=== PATIENT | female | born 1960 | race Caucasian/White ===

== ENCOUNTER → 2016-10-13 | Outpatient (CLI) | payer MEDICARE, MEDICAID | LOC: MW.CHIM 10:10 | PROVIDERS: ATTEND Internal Medicine | DX: E11.65 Type 2 diabetes mellitus with hyperglycemia (principal) | CPT/HCPCS: 36415; 83036 ==

== ENCOUNTER → 2016-10-14 | Outpatient (CLI) | payer MEDICARE, MEDICAID | LOC: MW.CHIM 08:00 | CPT/HCPCS: 96372; 99214; J0897 ==

== ENCOUNTER 2016-10-16 21:35 | Inpatient (IN) | payer MEDICARE, MEDICAID ==
[2016-10-16] MEDS ORDERED: Sodium Chloride 0.9% 2.5 ML Syringe FLUSH PRN ×2 (21:52→23:57)
[2016-10-16] MEDS ORDERED: Sodium Chloride 0.9% 10 ML Syringe FLUSH PRN ×2 (21:52→23:57)
--- NOTE | 2016-10-16 21:52 | EDM.PDOC ---
ED HPI Trauma - General Chief Complaint: Lower Extremity Injury/Pain Stated Complaint: FALL Time Seen by Provider: 10/16/16 21:47 - History of Present Illness INITIAL COMMENTS - FREE TEXT/NARRATIVE: HISTORY AND PHYSICAL: History of present illness: This 48 year-old female presents status post fall at home in which she injured her right hip she presents with paramedics denies head or neck pain, denies chest pain palpitations shortness of breath or other concerns Review of systems: As per history of present illness and below otherwise all systems reviewed and negative. Past medical history: As per history of present illness and as reviewed below otherwise noncontributory. Surgical history: As per history of present illness and as reviewed below otherwise noncontributory. Social history: No reported history of drug or alcohol abuse. Family history: As per history of present illness and as reviewed below otherwise noncontributory. Physical exam: HEENT: Atraumatic, normocephalic, pupils reactive, negative for conjunctival pallor or scleral icterus, mucous membranes moist, throat clear, neck supple, nontender, trachea midline. Lungs: Clear to auscultation, breath sounds equal bilaterally, chest nontender. Heart: S1S2, regular, negative for clicks, rubs, or JVD. Abdomen: Soft, nondistended, nontender. Negative for masses or hepatosplenomegaly. Negative for costovertebral tenderness. Pelvis: Stable nontender. Tenderness to palpation of her right hip neurovascular exam is unremarkable she has limited range of motion secondary to pain there is no significant shortening or obvious rotation of the patient is somewhat malpositioned Genitourinary: Deferred. Rectal: Deferred. Extremities: Atraumatic, negative for cords or calf pain. Neurovascular unremarkable. Neuro: Awake, alert, oriented. Cranial nerves II through XII unremarkable. Cerebellum unremarkable. Motor and sensory unremarkable throughout. Exam nonfocal. Diagnostics: X-ray right hip with total Therapeutics: Saline lock Impression: #1 observation status post fall #2 acute right hip injury #3 history of diabetes Definitive disposition and diagnosis as appropriate pending reevaluation and review of above. Allergies/ADRs: Allergies kaylah inhibitor Allergy (Uncoded 10/16/16 21:59) Airway Tightness Home Medications: Ambulatory Orders Ascorbic Acid [Vitamin C] 1 tab PO DAILY 02/18/15 [Confirmed 10/16/16] Hydrochlorothiazide 1 tab PO DAILY 02/18/15 [Confirmed 10/16/16] Levothyroxine [Synthroid] 1 tab PO DAILY 02/18/15 [Confirmed 10/16/16] Multivit-Min/FA/Lycopene/Lut [Complete Multi 50+] 1 tab PO DAILY 02/18/15 [ Confirmed 10/16/16] Nebivolol HCl [Bystolic] 1 tab PO BEDTIME 02/18/15 [Confirmed 10/16/16] amLODIPine Besylate [Amlodipine Besylate] 1 tab PO DAILY 02/18/15 [Confirmed 11/29] atorvaSTATin [Lipitor] 1 tab PO DAILY 02/18/15 [Confirmed 10/16/16] metFORMIN [Glucophage] 1 tab PO BID 02/18/15 [Confirmed 10/16/16] Albuterol Sulfate [Proair Hfa] 108 mcg IH QID PRN 10/16/16 [Confirmed 10/16/16] Aspirin [Lo-Dose Aspirin EC] 81 mg PO 10/16/16 Dulaglutide [Trulicity] 0.75 mg SQ 10/16/16 Fluticasone/Vilanterol [Breo Ellipta 100-25 MCG Inhalation Kit] 1 each IH ASDIRECTED 10/16/16 [Confirmed 10/16/16] Glimepiride [Amaryl] 1 mg PO WITHBREAKFAST 10/16/16 [Confirmed 10/16/16] Insulin Glarg,Human.Rec.Analog [LantUS Solostar] 22 units SUBCUT BEDTIME [Confirmed 10/16/16] Mirtazapine 30 mg PO BEDTIME 10/16/16 [Confirmed 10/16/16] Naproxen Sodium [Aleve] 220 mg PO BID PRN 10/16/16 [Confirmed 10/16/16] PARoxetine HCl [Paroxetine HCl] 40 mg PO DAILY 10/16/16 [Confirmed 10/16/16] Temazepam 15 mg PO BEDTIME 10/16/16 [Confirmed 10/16/16] cloNIDine 1 each TD WEEKLY 10/16/16 [Confirmed 10/16/16] Past Medical History Other Neuro History: "3 strokes" Social & Family History - Tobacco Use Smoking Status *Q: Unknown Ever Smoked Second Hand Smoke Exposure: No - Recreational Drug Use Recreational Drug Use: No Review of Systems - Review of Systems Review Of Systems: ROS reveals no pertinent complaints other than HPI. Trauma Exam - Physical Exam Exam: See Below (See dictated) Course - Vital Signs Last Recorded V/S: Last Vital Signs Temp 36.4 C 10/16/16 21:35 Pulse 84 10/16/16 21:35 Resp 22 H 10/16/16 21:35 BP 182/111 H 10/16/16 21:35 Pulse Ox 96 10/16/16 21:35 - Orders/Labs/Meds Orders: Active Orders 24 hr Category Date Time Status EKG Documentation Completion [RC] STAT Care 10/16/16 21:52 Active Hip Min 2V or 3V w Pelvis Rt [CR] Stat Exams 10/16/16 21:49 Taken Sodium Chloride 0.9% [Saline Flush] Med 10/16/16 21:52 Active 10 ml FLUSH ASDIRECTED PRN Sodium Chloride 0.9% [Saline Flush] Med 10/16/16 21:52 Active 2.5 ml FLUSH ASDIRECTED PRN Saline Lock Insert [OM.PC] Stat Oth 10/16/16 21:52 Ordered Medication Orders Sodium Chloride (Saline Flush) 10 ml FLUSH ASDIRECTED PRN PRN Reason: Keep Vein Open Sodium Chloride (Saline Flush) 2.5 ml FLUSH ASDIRECTED PRN PRN Reason: Keep Vein Open Meds: Medications Generic Name Dose Route Start Last Admin Trade Name Freq PRN Reason Stop Dose Admin Sodium Chloride 10 ml 10/16/16 21:52 Saline Flush FLUSH ASDIRECTED PRN Keep Vein Open Sodium Chloride 2.5 ml 10/16/16 21:52 Saline Flush FLUSH ASDIRECTED PRN Keep Vein Open Departure - Departure Time of Disposition: 22:45 Disposition: Home, Self-Care 01 Condition: good Clinical Impression: Fall, Hip injury Forms: ED Department Discharge Additional Instructions: The following information is given to patients seen in the emergency department who are being discharged to home. This information is to outline your options for follow-up care. We provide all patients seen in our emergency department with a follow-up referral. The need for follow-up, as well as the timing and circumstances, are variable depending upon the specifics of your emergency department visit. If you don't have a primary care physician on staff, we will provide you with a referral. We always advise you to contact your personal physician following an emergency department visit to inform them of the circumstance of the visit and for follow-up with them and/or the need for any referrals to a consulting specialist. The emergency department will also refer you to a specialist when appropriate. This referral assures that you have the opportunity for followup care with a specialist. All of these measure are taken in an effort to provide you with optimal care, which includes your followup. Under all circumstances we always encourage you to contact your private physician who remains a resource for coordinating your care. When calling for followup care, please make the office aware that this follow-up is from your recent emergency room visit. If for any reason you are refused follow-up, please contact the [facility] emergency department at and asked to speak to the emergency department charge nurse. Motrin/Tylenol as directed call primary medical doctor one to 2 days return as needed as discussed - My Orders Last 24 Hours: My Active Orders 10/16/16 21:49 Hip Min 2V or 3V w Pelvis Rt [CR] Stat 10/16/16 21:52 EKG Documentation Completion [RC] STAT Sodium Chloride 0.9% [Saline Flush] 10 ml FLUSH ASDIRECTED PRN Sodium Chloride 0.9% [Saline Flush] 2.5 ml FLUSH ASDIRECTED PRN Saline Lock Insert [OM.PC] Stat - Assessment/Plan Last 24 Hours: My Active Orders 10/16/16 21:49 Hip Min 2V or 3V w Pelvis Rt [CR] Stat 10/16/16 21:52 EKG Documentation Completion [RC] STAT Sodium Chloride 0.9% [Saline Flush] 10 ml FLUSH ASDIRECTED PRN Sodium Chloride 0.9% [Saline Flush] 2.5 ml FLUSH ASDIRECTED PRN Saline Lock Insert [OM.PC] Stat
[2016-10-17] MEDS ORDERED: Enoxaparin 40 MG/0.4 ML Syringe SUBCUT ONE (02:00)
[2016-10-17] MEDS: oxyCODONE 5 MG Tab PO PRN ×2 (06:53→14:08)
[2016-10-17] MEDS ORDERED: Potassium Chloride 20 MEQ Tab.ER PO ONE ×2 (08:35→17:24)
[2016-10-17] MEDS ORDERED: Sodium Chloride 0.45% 1,000 ML IV SCH ×2 (08:45→13:30)
[2016-10-17] MEDS ORDERED: cloNIDine 0.3 MG/Day Transdermal Patch TOP SCH (09:30)
[2016-10-17] MEDS: atorvaSTATin 40 MG Tab PO SCH (09:47)
[2016-10-17] MEDS: PARoxetine 20 MG Tab PO SCH (09:47)
[2016-10-17] MEDS: Hydrochlorothiazide 25 MG Tab PO SCH (09:48)
[2016-10-17] MEDS: amLODIPine 5 MG Tab PO SCH (09:48)
[2016-10-17] MEDS: Levothyroxine 50 MCG Tab PO SCH (09:49)
[2016-10-17] MEDS: Insulin Aspart 100 Units/ML 3 ML Pen SUBCUT SCH ×4 (09:55→21:11)
[2016-10-17] MEDS: BREO ELLIPTA INH SCH (10:07)
--- NOTE | 2016-10-17 14:04 | PCM.SN ---
- Free Text/Narrative Note: [id number]
[2016-10-17] MEDS: oxyCODONE ER 10 MG TAB.ER PO SCH ×2 (16:15→21:10)
--- NOTE | 2016-10-17 17:23 | PCM.SN ---
- Free Text/Narrative Note: Ankit palomino mai , recommended weight bearing PT . Silas Jauregui at [place] recommended patient showd have rest 2-3 weeks until less pain , during this time ROM exercise , afterwards she should have Weight bearing exercise. I have dw , ER attending at [facility].
[2016-10-17] MEDS ORDERED: hydrALAZINE 25 MG Tab PO ONE (17:26)
[2016-10-17] MEDS: Mirtazapine 15 MG Tab PO SCH (21:10)
[2016-10-17] MEDS: Temazepam 15 MG Cap PO SCH (21:10)
[2016-10-17] MEDS: Multivitamins with Iron/Calcium/Folic Acid/Minerals Tab PO SCH (21:10)
[2016-10-17] MEDS: Insulin Glargine,Human Rec. Analog 100 Units/ML 3 ML Pen SUBCUT SCH (21:12)
[2016-10-17] MEDS: BYSTOLIC 10 MG PO SCH (21:18)
[2016-10-17] MEDS: Enoxaparin 40 MG/0.4 ML Syringe SUBCUT SCH (21:22)
--- NOTE | 2016-10-17 22:46 | HP ---
DATE OF : 1960 PRIMARY CARE PHYSICIAN: None PCP CHIEF COMPLAINT: Leg pain, right, status post fall. HISTORY OF PRESENT ILLNESS: The patient is a 56-year-old female presented to the emergency room, status post fall, last night, while she was trying to walk with a walker. The patient had left-sided weakness secondary to 3 strokes she had due to uncontrolled blood pressure. Last stroke was about 5 years ago. They were ischemic strokes. The patient uses the walker for the past 2 months she says and the patient tripped over while she was walking with a walker and landed on her right side. She had severe pain. CT of the pelvis showed that the patient had nondisplaced fracture involving the medial right superior pubic ramus, best seen on the coronal images. X-ray of the right hip and pelvis show no evidence of acute trauma. X- ray extremity right femur was negative. PAST MEDICAL HISTORY: The patient has past medical history of hypertension, diabetes mellitus, hypothyroidism, history of 3 strokes, ischemic; and history of colitis and partial resection of the colon. PAST SURGICAL HISTORY: Hysterectomy, tonsillectomy, and partial colon resection. ALLERGIES: The patient is allergic to AVIS inhibitor, she gets angioedema, and to cigarette smoke as per patient SOCIAL HISTORY: She does not smoke and does not use drugs. No alcohol use. FAMILY HISTORY: Her father had ME and stroke, and he at the age of 64. Her mom was healthy and she lived in her 80s. REVIEW OF SYSTEMS: A 12-point review of systems is negative except as in history of present illness. VITAL SIGNS: At admission, the patient's temperature was 97.6, pulse rate 84, blood pressure 182/111, respiratory rate 22, and oxygen saturation 96%. PHYSICAL EXAMINATION Subsequent blood pressure was 118/64, this was measured after 2 hours. HEENT: Head is atraumatic and normocephalic. She has left-sided facial droop. The patient has some residual weakness in the left leg. The patient does not have any new neurologic deficits. NECK: Supple. No thyromegaly. No lymphadenopathy. HEART: S1 and S2. Regular rhythm and rate. No murmurs. LUNGS: Clear to auscultation bilateral. ABDOMEN: Midabdominal surgical scar. Abdomen is soft and nontender. Positive bowel sounds. EXTREMITIES: No edema. The patient has pain with flexion of the right foot and she has severe pain in the right lower extremity. Regarding left lower extremity, the patient can move it without pain. LABORATORY DATA: At admission, WBC 13.63, hemoglobin 9.9, hematocrit 31.8, and platelets 571. INR 0.98. Sodium 142, potassium 3.3, chloride 102, carbon dioxide 27, BUN 35, creatinine 1.6, glucose 212, and calcium 9.2. Total bilirubin 0.2, AST 17, ALT 17, alkaline phosphatase 109, albumin 3.4, and globulin 3.2. Urinalysis was negative. Chest x-ray was negative. Xray pelvis - neg X ray femour - neg Ct pelvic non displaced fracture of the rt superior pubic rami ASSESSMENT: The patient has nondisplaced fracture involving the medial right superior pubic ramus. We will start the patient on pain medication. We will give the patient oxycodone extended release 10 mg q.12 hours and oxycodone 5 mg p.o. q.6 hours p.r.n. for breakthrough pain. I have discussed with Dr. Good over the phone of the patient CT and he recommended weight bearing exercise. Also, CT was reviewed by Dr. Rosen in Orthopedics at [place] and he recommended the patient should have rest for 2 to 3 weeks, and then to start weight bearing exercise when she will have less pain. We will inform this to Physical Therapy. Also, I have discussed with ER physician in [facility], Dr. James, and he reviewed everything with Dr. Rosen, the orthopedic doctor. Leukocytosis, we will followup CBC. For hypertension, which is controlled now, we will continue the patient with amlodipine 10 mg p.o. daily, clonidine 0.3 mg topical patch, hydrochlorothiazide 25 mg p.o. daily, and Bystolic 10 mg 1 time p.o. at bedtime. For restless legs syndrome, we will give the patient Restoril 50 mg p.o. at bedtime. For depression, we will continue the patient with Remeron 30 mg p.o. at bedtime and paroxetine 40 mg p.o. daily. For diabetes mellitus, we will continue the patient with insulin 22 units subcutaneous at bedtime and insulin aspart on a sliding scale. We will hold metformin and we will hold glimepiride. For deep venous thrombosis prophylaxis, we will put the patient on heparin subcutaneous. For hypothyroidism, we will continue the patient with levothyroxine 50 mcg p.o. a.c. breakfast. SAVAGE / COURTNEY /[id number] MTDD
[2016-10-18] MEDS: Insulin Aspart 100 Units/ML 3 ML Pen SUBCUT SCH ×4 (06:44→21:20)
[2016-10-18] MEDS: Levothyroxine 50 MCG Tab PO SCH (06:51)
[2016-10-18] MEDS: oxyCODONE 5 MG Tab PO PRN (07:02)
[2016-10-18] MEDS: BREO ELLIPTA INH SCH (08:52)
--- NOTE | 2016-10-18 09:59 | PCM.PN ---
- General Info Date of Service: 10/18/16 Admission Dx/Problem (Free Text): Pelvic fracture, non-displaced. Subjective Update: Doing well this morning. Has some pain to R hip/pelvis. Has no other complaints of chest pain, palpitations or SOB. No headaches or blurred vision. Has filled out application to [facility] to rehab due to pelvic fracture. Functional Status: Reports: pain controlled, tolerating diet, ambulating, urinating - Review of Systems General: Reports: no symptoms. Denies: fever HEENT: Reports: no symptoms. Denies: headaches, visual changes Pulmonary: Reports: no symptoms. Denies: shortness of breath, cough, sputum Cardiovascular: Reports: no symptoms. Denies: chest pain, edema Gastrointestinal: Reports: No symptoms. Denies: Abdominal pain, Nausea, Vomiting Genitourinary: Reports: no symptoms. Denies: dysuria, frequency, burning Musculoskeletal: Reports: other (R hip/pelvic pain) Skin: Reports: no symptoms Neurological: Reports: no symptoms Psychiatric: Reports: no symptoms - Patient Data Vitals - most recent: Last Vital Signs Temp 98.4 F 10/18/16 08:00 Pulse 78 10/18/16 08:00 Resp 14 10/18/16 08:00 BP 152/71 H 10/18/16 08:00 Pulse Ox 82 L 10/18/16 08:00 Weight - most recent: 81.647 kg I&O - last 24 hours: Intake & Output 10/17/16 10/18/16 10/18/16 22:59 06:59 14:59 Intake Total 1608 500 Output Total 1250 800 Balance 358 -300 Lab Results last 24 hrs: Laboratory Results - last 24 hr 10/17/16 10/17/16 10/17/16 Range/Units 11:41 12:00 21:03 WBC (4.0-11.0) K/uL RBC (4.30-5.90) M/uL Hgb (12.0-16.0) g/dL Hct (36.0-46.0) % MCV (80.0-98.0) fL MCH (27.0-32.0) pg MCHC (31.0-37.0) g/dL RDW Std Deviation (28.0-62.0) fl RDW Coeff of Leia (11.0-15.0) % Plt Count (150-400) K/uL MPV (7.40-12.00) fL Neut % (Auto) (48.0-80.0) % Lymph % (Auto) (16.0-40.0) % Cecil % (Auto) (0.0-15.0) % Eos % (Auto) (0.0-7.0) % Baso % (Auto) (0.0-1.5) % Neut # (1.4-5.7) K/uL Lymph # (0.6-2.4) K/uL Cecil # (0.0-0.8) K/uL Eos # (0.0-0.7) K/uL Baso # (0.0-0.1) K/uL Nucleated RBC % /100WBC Nucleated RBCs # K/uL Sodium (136-146) mmol/L Potassium (3.5-5.1) mmol/L Chloride (98-110) mmol/L Carbon Dioxide (21-31) mmol/L BUN (6.0-23.0) mg/dL Creatinine (0.6-1.5) mg/dL Est Cr Clr Drug Dosing mL/min Estimated GFR (MDRD) ml/min Glucose (60-110) mg/dL POC Glucose 121 H 173 H (60-110) mg/dL Calcium (8.8-10.8) mg/dL Urine Color STRAW Urine Appearance CLEAR Urine pH 7.0 (5.0-8.0) Ur Specific [place] 1.010 (1.001-1.035) Urine Protein NEGATIVE (NEGATIVE) mg/dL Urine Glucose (UA) NEGATIVE (NEGATIVE) mg/dL Urine Ketones NEGATIVE (NEGATIVE) mg/dL Urine Occult Blood NEGATIVE (NEGATIVE) Urine Nitrite NEGATIVE (NEGATIVE) Urine Bilirubin NEGATIVE (NEGATIVE) Urine Urobilinogen 0.2 (<2.0) EU/dL Ur Leukocyte Esterase MODERATE (NEGATIVE) 10/18/16 10/18/16 10/18/16 Range/Units 05:30 05:30 06:34 WBC 15.33 H (4.0-11.0) K/uL RBC 3.96 L (4.30-5.90) M/uL Hgb 10.2 L (12.0-16.0) g/dL Hct 33.5 L (36.0-46.0) % MCV 84.6 (80.0-98.0) fL MCH 25.8 L (27.0-32.0) pg MCHC 30.4 L (31.0-37.0) g/dL RDW Std Deviation 60.9 (28.0-62.0) fl RDW Coeff of Leia 20 H (11.0-15.0) % Plt Count 608 H (150-400) K/uL MPV 11.00 (7.40-12.00) fL Neut % (Auto) 63.5 (48.0-80.0) % Lymph % (Auto) 21.3 (16.0-40.0) % Cecil % (Auto) 9.9 (0.0-15.0) % Eos % (Auto) 5.0 (0.0-7.0) % Baso % (Auto) 0.3 (0.0-1.5) % Neut # 9.7 H (1.4-5.7) K/uL Lymph # 3.3 H (0.6-2.4) K/uL Cecil # 1.5 H (0.0-0.8) K/uL Eos # 0.8 H (0.0-0.7) K/uL Baso # 0.1 (0.0-0.1) K/uL Nucleated RBC % 0.0 /100WBC Nucleated RBCs # 0 K/uL Sodium 143 (136-146) mmol/L Potassium 4.7 (3.5-5.1) mmol/L Chloride 106 (98-110) mmol/L Carbon Dioxide 28 (21-31) mmol/L BUN 25 H (6.0-23.0) mg/dL Creatinine 1.2 (0.6-1.5) mg/dL Est Cr Clr Drug Dosing 45.91 mL/min Estimated GFR (MDRD) 46.1 ml/min Glucose 129 H (60-110) mg/dL POC Glucose 133 H (60-110) mg/dL Calcium 8.3 L (8.8-10.8) mg/dL Urine Color Urine Appearance Urine pH (5.0-8.0) Ur Specific [place] (1.001-1.035) Urine Protein (NEGATIVE) mg/dL Urine Glucose (UA) (NEGATIVE) mg/dL Urine Ketones (NEGATIVE) mg/dL Urine Occult Blood (NEGATIVE) Urine Nitrite (NEGATIVE) Urine Bilirubin (NEGATIVE) Urine Urobilinogen (<2.0) EU/dL Ur Leukocyte Esterase (NEGATIVE) Med Orders - Current: Current Medications Amlodipine Besylate (Norvasc) 10 mg PO DAILY REPLACED BY [facility] Last Admin: 10/17/16 09:48 Dose: 10 mg Aspirin (Aspirin) 325 mg PO DAILY REPLACED BY [facility] Atorvastatin Calcium (Lipitor) 40 mg PO DAILY REPLACED BY [facility] Last Admin: 10/17/16 09:47 Dose: 40 mg Clonidine HCl (Catapres-Tts 3) 0.3 mg TOP SEECOMMENT REPLACED BY [facility] Enoxaparin Sodium (Lovenox) 40 mg SUBCUT Q24H REPLACED BY [facility] Last Admin: 10/17/16 21:22 Dose: 40 mg Hydrochlorothiazide (Hydrochlorothiazide) 25 mg PO DAILY REPLACED BY [facility] Last Admin: 10/17/16 09:48 Dose: 25 mg Insulin Aspart (Novolog) 0 unit SUBCUT ACBED REPLACED BY [facility] PRN Reason: Protocol Last Admin: 10/18/16 06:44 Dose: Not Given Insulin Glargine (Lantus Solostar) 22 units SUBCUT BEDTIME REPLACED BY [facility] Last Admin: 10/17/16 21:12 Dose: 22 units Levothyroxine Sodium (Synthroid) 50 mcg PO ACBREAKFAST REPLACED BY [facility] Last Admin: 10/18/16 06:51 Dose: 50 mcg Mirtazapine (Remeron) 30 mg PO BEDTIME REPLACED BY [facility] Last Admin: 10/17/16 21:10 Dose: 30 mg Multivitamins/Minerals (Thera M Plus) 1 tab PO BEDTIME REPLACED BY [facility] Last Admin: 10/17/16 21:10 Dose: 1 tab Oxycodone HCl (Oxycodone) 5 mg PO Q6H PRN PRN Reason: Pain Last Admin: 10/18/16 07:02 Dose: 5 mg Oxycodone HCl (Oxycontin) 10 mg PO Q12HR REPLACED BY [facility] Last Admin: 10/17/16 21:10 Dose: 10 mg Paroxetine HCl (Paxil) 40 mg PO DAILY REPLACED BY [facility] Last Admin: 10/17/16 09:47 Dose: 40 mg Breo Ellipta ( Fluticasone/Vilanterol 1 Each) 1 each INH DAILY REPLACED BY [facility] Last Admin: 10/18/16 08:52 Dose: 1 each Bystolic (Nebevilol) (10mg) 1 each PO BEDTIME REPLACED BY [facility] Last Admin: 10/17/16 21:18 Dose: Not Given Sodium Chloride (Saline Flush) 10 ml FLUSH ASDIRECTED PRN PRN Reason: Keep Vein Open Sodium Chloride (Saline Flush) 2.5 ml FLUSH ASDIRECTED PRN PRN Reason: Keep Vein Open Temazepam (Restoril) 15 mg PO BEDTIME REPLACED BY [facility] Last Admin: 10/17/16 21:10 Dose: 15 mg Discontinued Medications Enoxaparin Sodium (Lovenox) 40 mg SUBCUT ONETIME ONE Stop: 10/17/16 02:01 Last Admin: 10/17/16 02:08 Dose: 40 mg Hydralazine HCl (Apresoline) 25 mg PO ONETIME ONE Stop: 10/17/16 17:27 Last Admin: 10/17/16 17:35 Dose: 25 mg Sodium Chloride (Sodium Chloride 0.45%) 1,000 mls @ 125 mls/hr IV ASDIRECTED REPLACED BY [facility] Last Admin: 10/17/16 14:32 Dose: 125 mls/hr Sodium Chloride (Sodium Chloride 0.45%) 1,000 mls @ 125 mls/hr IV ASDIRECTED REPLACED BY [facility] Potassium Chloride (Klor-Con M20) 40 meq PO ONETIME ONE Stop: 10/17/16 08:36 Last Admin: 10/17/16 09:47 Dose: 40 meq Potassium Chloride (Klor-Con M20) 40 meq PO ONETIME ONE Stop: 10/17/16 17:25 Last Admin: 10/17/16 17:35 Dose: 40 meq Sodium Chloride (Saline Flush) 10 ml FLUSH ASDIRECTED PRN PRN Reason: Keep Vein Open Sodium Chloride (Saline Flush) 2.5 ml FLUSH ASDIRECTED PRN PRN Reason: Keep Vein Open - Exam Quality Assessment: No: supplemental oxygen General: alert, oriented, cooperative HEENT: Pupils equal, Pupils reactive, EOMI, Mucous membr. moist/pink Neck: supple, +2 carotid pulse wo bruit Lungs: Clear to auscultation, Normal respiratory effort Cardiovascular: regular rate, regular rhythm, no murmurs Abdomen: bowel sounds present, soft, no tenderness, no distension Extremities: no edema, normal pulses, no tenderness/swelling, other (tenderness to R hip/pelvic region. No brusing to skin noted.) Peripheral Pulses: 2+: posterior tibial (L), posterior tibial (R), dorsalis pedis (L), dorsalis pedis (R) Skin: warm, dry, intact Neurological: no new focal deficit Psy/Mental Status: alert, normal affect, normal mood - Problem List & Annotations (1) Pelvic fracture SNOMED Code(s): 24319088 Code(s): S32.9XXA - FRACTURE OF UNSP PARTS OF LUMBOSACRAL SPINE AND PELVIS, INIT Status: Acute Current Visit: Yes Qualifiers: Encounter type: initial encounter Pelvic bone location: other part of pelvis Fracture type: closed Qualified Code(s): S32.89XA - Fracture of other parts of pelvis, initial encounter for closed fracture (2) Fall SNOMED Code(s): 8951099, 695266261 Code(s): W19.XXXA - UNSPECIFIED FALL, INITIAL ENCOUNTER Status: Acute Current Visit: Yes Qualifiers: Encounter type: initial encounter Qualified Code(s): W19.XXXA - Unspecified fall, initial encounter (3) History of CVA (cerebrovascular accident) SNOMED Code(s): 896503595 Code(s): Z86.73 - PRSNL HX OF TIA (TIA), AND CEREB INFRC W/O RESID DEFICITS Status: Chronic Current Visit: Yes (4) DM type 2 (diabetes mellitus, type 2) SNOMED Code(s): 62488242 Code(s): E11.9 - TYPE 2 DIABETES MELLITUS WITHOUT COMPLICATIONS Status: Chronic Current Visit: Yes Qualifiers: Diabetes mellitus complication status: with neurologic complications Diabetes mellitus complication detail: with other neurological complication Diabetes mellitus jail insulin use: with intermission coordinator use Qualified Code(s) : E11.49 - Type 2 diabetes mellitus with other diabetic neurological complication; Z79.4 - half-way (current) use of insulin (5) HTN (hypertension) SNOMED Code(s): 29481154 Code(s): I10 - ESSENTIAL (PRIMARY) HYPERTENSION Status: Acute Current Visit: Yes Qualifiers: Hypertension type: essential hypertension Qualified Code(s): I10 - Essential (primary) hypertension (6) Hypothyroidism SNOMED Code(s): 32687751 Code(s): E03.9 - HYPOTHYROIDISM, UNSPECIFIED Status: Chronic Current Visit: Yes Qualifiers: Hypothyroidism type: unspecified Qualified Code(s): E03.9 - Hypothyroidism , unspecified - Problem List Review Problem List Initiated/Reviewed/Updated: Yes - My Orders Last 24 Hours: My Active Orders 10/18/16 09:46 Patient Status [ADT] Routine 10/18/16 10:00 Aspirin 325 mg PO DAILY - Plan Plan:: This 56 year old female admitted with non-displaced medial right superior pubic ramus fracture 1. Pelvic fracture: Consult PT. WB with FWW as tolerated and as pain is controlled. Oxycontin 10 mg BID and Oxycodone PRN for pain. Change to inpatient status. 2. Leukocytosis: Improving, 15,330 today. Ua had moderate leukocytosis. UA with micro added this morning, revealed WBC 8-10 and few bacteria. Patient asymptomatic. 3. HTN: Controlled, Continue home medications of Norvasc, Clonidine patch, HCTZ , Bystolic 4. CAD: Continue Lipitor and ASA 5. DM: Controlled, Continue holding oral medications. Novolog SSI TIDAC and Lantus 6. Hypothyroidism: COntnue Levothyroxine 7. COPD: Continue Breo 8. Depression: Continue Paxil. VTE: Lovenox Dispo: earliest discharge to SNF for rehabilitation with PT.
[2016-10-18] MEDS: Hydrochlorothiazide 25 MG Tab PO SCH (10:20)
[2016-10-18] MEDS: atorvaSTATin 40 MG Tab PO SCH (10:21)
[2016-10-18] MEDS: amLODIPine 5 MG Tab PO SCH (10:22)
[2016-10-18] MEDS: oxyCODONE ER 10 MG TAB.ER PO SCH ×2 (10:23→21:15)
[2016-10-18] MEDS: PARoxetine 20 MG Tab PO SCH (10:25)
[2016-10-18] MEDS: Aspirin 325 MG Tab PO SCH (10:27)
[2016-10-18] MEDS ORDERED: Albuterol/Ipratropium 3.0-0.5 MG/3 ML Neb Soln NEB PRN (13:43)
[2016-10-18] MEDS: Docusate Sodium 100 MG Cap PO SCH ×2 (16:24→21:15)
--- NOTE | 2016-10-18 18:13 | CR ---
EXAM DATE: 10/16/16 PATIENT'S AGE: 56 Patient: COCO REILLY Facility: [place], [place] Site . Site : 1960 Study: XRay Hip Right with pelvis [id number]/4/2017 10:29:57 PM Ordering Physician: Long Farrar Final Report: INDICATION: Trauma TECHNIQUE: AP pelvis and two views right hip COMPARISON: None FINDINGS: Bones: Alignment is normal. No fractures or bone lesions. Joint spaces: Unremarkable. Soft tissues: Unremarkable. IMPRESSION: No evidence of acute trauma Dictated by Bernard Echols MD @ 10/16/2016 10:57:09 PM Dictated by: Bernard Echols MD @ 10/16/2016 22:57:17 (Electronic Signature) Report Signed by Proxy and Original Signed Document filed in the Medical Record. MTDD
--- NOTE | 2016-10-18 18:17 | CR ---
EXAM DATE: 10/16/16 PATIENT'S AGE: 56 Patient: COCO REILLY Facility: [place], [place] Site . Site : 1960 Study: XRay Extremity Right Femur [id number]/4/2017 11:22:19 PM Ordering Physician: Long Farrar Final Report: INDICATION: Pain following fall TECHNIQUE: Two views right femur COMPARISON: None FINDINGS: Bones: Alignment is normal. No fractures or bone lesions. Joint spaces: Unremarkable. Soft tissues: Unremarkable. IMPRESSION: Negative. Dictated by Bernard Echols MD @ 10/16/2016 11:49:25 PM Dictated by: Bernard Echols MD @ 10/16/2016 23:49:30 (Electronic Signature) Report Signed by Proxy and Original Signed Document filed in the Medical Record. MTDD
--- NOTE | 2016-10-18 18:18 | CT ---
EXAM DATE: 10/16/16 PATIENT'S AGE: 56 Patient: COCO REILLY Facility: [place], [place] Site . Site : 1960 Study: CT Pelvis [id number]/4/2017 11:25:35 PM Ordering Physician: Lnog Farrar Final Report: INDICATION: Pain following fall TECHNIQUE: CT pelvis without contrast. COMPARISON: None FINDINGS: Bones: Nondisplaced fracture involving the medial right superior pubic ramus best seen on the coronal images. Joints: Unremarkable. Soft tissues: Unremarkable. IMPRESSION: Nondisplaced fracture involving the medial right superior pubic ramus best seen on the coronal images. Dictated by Bernard Echols MD @ Oct 16 2016 11:43PM (Electronic Signature) Report Signed by Proxy and Original Signed Document filed in the Medical Record. MTDMary
--- NOTE | 2016-10-18 18:25 | CR ---
EXAM DATE: 10/16/16 PATIENT'S AGE: 56 Patient: COCO REILLY Facility: [place], [place] Site . Site : 1960 Study: XRay Chest [id number]/5/2017 9:07:09 AM Ordering Physician: Donald Long Final Report: HISTORY: Leukocytosis. Technique: One view portable chest. Comparison: Chest x-ray 03/20/2015. Findings: Low lung volumes. No airspace consolidation. No pleural effusion or pneumothorax. Tortuous thoracic aorta. Cardiomediastinal silhouette is otherwise within normal limits. The lower thoracic spine compression deformity seen on comparison radiograph is not well-visualized. Impression: No acute findings. Dictated by Jose Mendez MD @ Oct 17 2016 9:33AM (Electronic Signature) Report Signed by Proxy and Original Signed Document filed in the Medical Record. MTDD
[2016-10-18] MEDS: Mirtazapine 15 MG Tab PO SCH (21:15)
[2016-10-18] MEDS: Multivitamins with Iron/Calcium/Folic Acid/Minerals Tab PO SCH (21:15)
[2016-10-18] MEDS: Enoxaparin 40 MG/0.4 ML Syringe SUBCUT SCH (21:15)
[2016-10-18] MEDS: Temazepam 15 MG Cap PO SCH (21:15)
[2016-10-18] MEDS: Insulin Glargine,Human Rec. Analog 100 Units/ML 3 ML Pen SUBCUT SCH (21:21)
[2016-10-18] MEDS: BYSTOLIC 10 MG PO SCH (21:25)
[2016-10-19] MEDS: Insulin Aspart 100 Units/ML 3 ML Pen SUBCUT SCH ×4 (06:35→20:56)
[2016-10-19] MEDS: Levothyroxine 50 MCG Tab PO SCH (06:36)
[2016-10-19] MEDS: amLODIPine 5 MG Tab PO SCH (08:33)
[2016-10-19] MEDS: Docusate Sodium 100 MG Cap PO SCH ×2 (08:33→20:44)
[2016-10-19] MEDS: oxyCODONE ER 10 MG TAB.ER PO SCH ×2 (08:34→20:44)
[2016-10-19] MEDS: PARoxetine 20 MG Tab PO SCH (08:34)
[2016-10-19] MEDS: Hydrochlorothiazide 25 MG Tab PO SCH (08:34)
[2016-10-19] MEDS: Aspirin 325 MG Tab PO SCH (08:34)
[2016-10-19] MEDS: atorvaSTATin 40 MG Tab PO SCH (08:34)
[2016-10-19] MEDS: BREO ELLIPTA INH SCH (08:49)
[2016-10-19] MEDS ORDERED: Bisacodyl 10 MG Supp RECTAL PRN (08:52)
--- NOTE | 2016-10-19 08:54 | PCM.PN ---
<Linda Sheth M - Last Filed: 10/19/16 09:08> - General Info Date of Service: 10/19/16 Admission Dx/Problem (Free Text): Pelvic fracture, non-displaced. Subjective Update: Doing ok this morning. Has some pain to R hip/pelvis also started having pain to R ankle. Attempted to stand but pain to hip and ankle were too much. Has no other complaints of chest pain, palpitations or SOB. No headaches or blurred vision. Functional Status: Reports: pain controlled, tolerating diet, urinating. Denies : ambulating - Review of Systems General: Reports: no symptoms. Denies: fever, weakness HEENT: Reports: no symptoms. Denies: sinus congestion, sore throat Pulmonary: Reports: no symptoms. Denies: shortness of breath, cough, sputum Cardiovascular: Denies: chest pain, palpitations, edema Gastrointestinal: Denies: Abdominal pain, Nausea, Vomiting Genitourinary: Reports: no symptoms. Denies: dysuria, frequency, burning Musculoskeletal: Reports: other (R pelvic pain and has new complaint of R ankle pain. ) Skin: Reports: no symptoms Neurological: Reports: no symptoms Psychiatric: Reports: no symptoms - Patient Data Vitals - most recent: Last Vital Signs Temp 98.3 F 10/19/16 08:00 Pulse 88 10/19/16 08:00 Resp 12 10/19/16 08:00 BP 142/81 H 10/19/16 08:33 Pulse Ox 92 L 10/19/16 08:00 Weight - most recent: 180 lb 0.013 oz I&O - last 24 hours: Intake & Output 10/18/16 10/19/16 10/19/16 22:59 06:59 14:59 Intake Total 930 750 Output Total 580 887 Balance 350 -137 Lab Results last 24 hrs: Laboratory Results - last 24 hr 10/17/16 10/18/16 10/18/16 Range/Units 12:00 05:30 11:25 WBC (4.0-11.0) K/uL RBC (4.30-5.90) M/uL Hgb (12.0-16.0) g/dL Hct (36.0-46.0) % MCV (80.0-98.0) fL MCH (27.0-32.0) pg MCHC (31.0-37.0) g/dL RDW Std Deviation (28.0-62.0) fl RDW Coeff of Leia (11.0-15.0) % Plt Count (150-400) K/uL MPV (7.40-12.00) fL Neut % (Auto) (48.0-80.0) % Lymph % (Auto) (16.0-40.0) % [place] % (Auto) (0.0-15.0) % Eos % (Auto) (0.0-7.0) % Baso % (Auto) (0.0-1.5) % Neut # (1.4-5.7) K/uL Lymph # (0.6-2.4) K/uL [place] # (0.0-0.8) K/uL Eos # (0.0-0.7) K/uL Baso # (0.0-0.1) K/uL Nucleated RBC % /100WBC Nucleated RBCs # K/uL Sodium (136-146) mmol/L Potassium (3.5-5.1) mmol/L Chloride (98-110) mmol/L Carbon Dioxide (21-31) mmol/L BUN (6.0-23.0) mg/dL Creatinine (0.6-1.5) mg/dL Est Cr Clr Drug Dosing mL/min Estimated GFR (MDRD) ml/min Glucose (60-110) mg/dL POC Glucose 159 H (60-110) mg/dL Calcium (8.8-10.8) mg/dL Vitamin B12 752 (200-1100) PG/ML Urine Color STRAW Urine Appearance CLEAR Urine pH 7.0 (5.0-8.0) Ur Specific [place] 1.010 (1.001-1.035) Urine Protein NEGATIVE (NEGATIVE) mg/dL Urine Glucose (UA) NEGATIVE (NEGATIVE) mg/dL Urine Ketones NEGATIVE (NEGATIVE) mg/dL Urine Occult Blood NEGATIVE (NEGATIVE) Urine Nitrite NEGATIVE (NEGATIVE) Urine Bilirubin NEGATIVE (NEGATIVE) Urine Urobilinogen 0.2 (<2.0) EU/dL Ur Leukocyte Esterase MODERATE (NEGATIVE) Urine RBC 1-2 (0-2/HPF) Urine WBC 8-10 (0-5/HPF) Ur Epithelial Cells FEW (NONE-FEW) Urine Bacteria FEW (NEGATIVE) 10/18/16 10/18/16 10/19/16 Range/Units 16:28 21:20 04:43 WBC (4.0-11.0) K/uL RBC (4.30-5.90) M/uL Hgb (12.0-16.0) g/dL Hct (36.0-46.0) % MCV (80.0-98.0) fL MCH (27.0-32.0) pg MCHC (31.0-37.0) g/dL RDW Std Deviation (28.0-62.0) fl RDW Coeff of Leia (11.0-15.0) % Plt Count (150-400) K/uL MPV (7.40-12.00) fL Neut % (Auto) (48.0-80.0) % Lymph % (Auto) (16.0-40.0) % [place] % (Auto) (0.0-15.0) % Eos % (Auto) (0.0-7.0) % Baso % (Auto) (0.0-1.5) % Neut # (1.4-5.7) K/uL Lymph # (0.6-2.4) K/uL [place] # (0.0-0.8) K/uL Eos # (0.0-0.7) K/uL Baso # (0.0-0.1) K/uL Nucleated RBC % /100WBC Nucleated RBCs # K/uL Sodium 140 (136-146) mmol/L Potassium 4.1 (3.5-5.1) mmol/L Chloride 102 (98-110) mmol/L Carbon Dioxide 27 (21-31) mmol/L BUN 23 (6.0-23.0) mg/dL Creatinine 1.2 (0.6-1.5) mg/dL Est Cr Clr Drug Dosing 45.91 mL/min Estimated GFR (MDRD) 46.1 ml/min Glucose 166 H (60-110) mg/dL POC Glucose 155 H 195 H (60-110) mg/dL Calcium 8.0 L (8.8-10.8) mg/dL Vitamin B12 (200-1100) PG/ML Urine Color Urine Appearance Urine pH (5.0-8.0) Ur Specific [place] (1.001-1.035) Urine Protein (NEGATIVE) mg/dL Urine Glucose (UA) (NEGATIVE) mg/dL Urine Ketones (NEGATIVE) mg/dL Urine Occult Blood (NEGATIVE) Urine Nitrite (NEGATIVE) Urine Bilirubin (NEGATIVE) Urine Urobilinogen (<2.0) EU/dL Ur Leukocyte Esterase (NEGATIVE) Urine RBC (0-2/HPF) Urine WBC (0-5/HPF) Ur Epithelial Cells (NONE-FEW) Urine Bacteria (NEGATIVE) 10/19/16 10/19/16 Range/Units 04:43 06:34 WBC 17.30 H (4.0-11.0) K/uL RBC 3.84 L (4.30-5.90) M/uL Hgb 9.8 L (12.0-16.0) g/dL Hct 32.0 L (36.0-46.0) % MCV 83.3 (80.0-98.0) fL MCH 25.5 L (27.0-32.0) pg MCHC 30.6 L (31.0-37.0) g/dL RDW Std Deviation 59.0 (28.0-62.0) fl RDW Coeff of Leia 19 H (11.0-15.0) % Plt Count 504 H (150-400) K/uL MPV 10.40 (7.40-12.00) fL Neut % (Auto) 69.2 (48.0-80.0) % Lymph % (Auto) 18.7 (16.0-40.0) % [place] % (Auto) 9.0 (0.0-15.0) % Eos % (Auto) 2.8 (0.0-7.0) % Baso % (Auto) 0.3 (0.0-1.5) % Neut # 12.0 H (1.4-5.7) K/uL Lymph # 3.2 H (0.6-2.4) K/uL [place] # 1.6 H (0.0-0.8) K/uL Eos # 0.5 (0.0-0.7) K/uL Baso # 0.1 (0.0-0.1) K/uL Nucleated RBC % 0.2 /100WBC Nucleated RBCs # 0 K/uL Sodium (136-146) mmol/L Potassium (3.5-5.1) mmol/L Chloride (98-110) mmol/L Carbon Dioxide (21-31) mmol/L BUN (6.0-23.0) mg/dL Creatinine (0.6-1.5) mg/dL Est Cr Clr Drug Dosing mL/min Estimated GFR (MDRD) ml/min Glucose (60-110) mg/dL POC Glucose 161 H (60-110) mg/dL Calcium (8.8-10.8) mg/dL Vitamin B12 (200-1100) PG/ML Urine Color Urine Appearance Urine pH (5.0-8.0) Ur Specific [place] (1.001-1.035) Urine Protein (NEGATIVE) mg/dL Urine Glucose (UA) (NEGATIVE) mg/dL Urine Ketones (NEGATIVE) mg/dL Urine Occult Blood (NEGATIVE) Urine Nitrite (NEGATIVE) Urine Bilirubin (NEGATIVE) Urine Urobilinogen (<2.0) EU/dL Ur Leukocyte Esterase (NEGATIVE) Urine RBC (0-2/HPF) Urine WBC (0-5/HPF) Ur Epithelial Cells (NONE-FEW) Urine Bacteria (NEGATIVE) Med Orders - Current: Current Medications Albuterol/Ipratropium (Duoneb 3.0-0.5 Mg/3 Ml) 3 ml NEB Q4HRRT PRN PRN Reason: SOB/Wheezing Amlodipine Besylate (Norvasc) 10 mg PO DAILY [facility] Last Admin: 10/19/16 08:33 Dose: 10 mg Aspirin (Aspirin) 325 mg PO DAILY [facility] Last Admin: 10/19/16 08:34 Dose: 325 mg Atorvastatin Calcium (Lipitor) 40 mg PO DAILY [facility] Last Admin: 10/19/16 08:34 Dose: 40 mg Bisacodyl (Dulcolax) 10 mg RECTAL DAILY PRN PRN Reason: Constipation Clonidine HCl (Catapres-Tts 3) 0.3 mg TOP SEECOMMENT [facility] Docusate Sodium (Colace) 100 mg PO BID [facility] Last Admin: 10/19/16 08:33 Dose: 100 mg Enoxaparin Sodium (Lovenox) 40 mg SUBCUT Q24H [facility] Last Admin: 10/18/16 21:15 Dose: 40 mg Hydrochlorothiazide (Hydrochlorothiazide) 25 mg PO DAILY [facility] Last Admin: 10/19/16 08:34 Dose: 25 mg Insulin Aspart (Novolog) 0 unit SUBCUT ACBED [facility] PRN Reason: Protocol Last Admin: 10/19/16 06:35 Dose: 2 units Insulin Glargine (Lantus Solostar) 22 units SUBCUT BEDTIME [facility] Last Admin: 10/18/16 21:21 Dose: 22 units Levothyroxine Sodium (Synthroid) 50 mcg PO ACBREAKFAST [facility] Last Admin: 10/19/16 06:36 Dose: 50 mcg Mirtazapine (Remeron) 30 mg PO BEDTIME [facility] Last Admin: 10/18/16 21:15 Dose: 30 mg Multivitamins/Minerals (Thera M Plus) 1 tab PO BEDTIME [facility] Last Admin: 10/18/16 21:15 Dose: 1 tab Non-Formulary Medication (Dulaglutide [Trulicity]) 0.75 mg SQ WEEKLY [facility] Oxycodone HCl (Oxycodone) 5 mg PO Q6H PRN PRN Reason: Pain Last Admin: 10/18/16 07:02 Dose: 5 mg Oxycodone HCl (Oxycontin) 10 mg PO Q12HR [facility] Last Admin: 10/19/16 08:34 Dose: 10 mg Paroxetine HCl (Paxil) 40 mg PO DAILY [facility] Last Admin: 10/19/16 08:34 Dose: 40 mg Breo Ellipta ( Fluticasone/Vilanterol 1 Each) 1 each INH DAILY [facility] Last Admin: 10/19/16 08:49 Dose: 1 each Bystolic (Nebevilol) (10mg) 1 each PO BEDTIME [facility] Last Admin: 10/18/16 21:25 Dose: Not Given Sodium Chloride (Saline Flush) 10 ml FLUSH ASDIRECTED PRN PRN Reason: Keep Vein Open Sodium Chloride (Saline Flush) 2.5 ml FLUSH ASDIRECTED PRN PRN Reason: Keep Vein Open Temazepam (Restoril) 15 mg PO BEDTIME [facility] Last Admin: 10/18/16 21:15 Dose: 15 mg Discontinued Medications Enoxaparin Sodium (Lovenox) 40 mg SUBCUT ONETIME ONE Stop: 10/17/16 02:01 Last Admin: 10/17/16 02:08 Dose: 40 mg Hydralazine HCl (Apresoline) 25 mg PO ONETIME ONE Stop: 10/17/16 17:27 Last Admin: 10/17/16 17:35 Dose: 25 mg Sodium Chloride (Sodium Chloride 0.45%) 1,000 mls @ 125 mls/hr IV ASDIRECTED [facility] Last Admin: 10/17/16 14:32 Dose: 125 mls/hr Sodium Chloride (Sodium Chloride 0.45%) 1,000 mls @ 125 mls/hr IV ASDIRECTED [facility] Potassium Chloride (Klor-Con M20) 40 meq PO ONETIME ONE Stop: 10/17/16 08:36 Last Admin: 10/17/16 09:47 Dose: 40 meq Potassium Chloride (Klor-Con M20) 40 meq PO ONETIME ONE Stop: 10/17/16 17:25 Last Admin: 10/17/16 17:35 Dose: 40 meq Sodium Chloride (Saline Flush) 10 ml FLUSH ASDIRECTED PRN PRN Reason: Keep Vein Open Sodium Chloride (Saline Flush) 2.5 ml FLUSH ASDIRECTED PRN PRN Reason: Keep Vein Open - Exam Quality Assessment: supplemental oxygen General: alert, oriented, cooperative HEENT: Pupils equal, Pupils reactive, EOMI, Mucous membr. moist/pink Neck: supple, no JVD. No: lymphadenopathy Lungs: Clear to auscultation, Normal respiratory effort. No: Rhonchi, Wheezing Cardiovascular: regular rate, regular rhythm, no murmurs Abdomen: bowel sounds present, soft, no tenderness, no distension Extremities: no edema, normal pulses, other (tenderness along lateral R malleolus. Unable to dorsiflex or plantar flex with out inducing pain. ) Neurological: no new focal deficit Psy/Mental Status: alert, normal affect, normal mood - Problem List & Annotations (1) Pelvic fracture SNOMED Code(s): 47734459 Code(s): S32.9XXA - FRACTURE OF UNSP PARTS OF LUMBOSACRAL SPINE AND PELVIS, INIT Status: Acute Current Visit: Yes Qualifiers: Encounter type: initial encounter Pelvic bone location: other part of pelvis Fracture type: closed Qualified Code(s): S32.89XA - Fracture of other parts of pelvis, initial encounter for closed fracture (2) Fall SNOMED Code(s): 5907043, 986280859 Code(s): W19.XXXA - UNSPECIFIED FALL, INITIAL ENCOUNTER Status: Acute Current Visit: Yes Qualifiers: Encounter type: initial encounter Qualified Code(s): W19.XXXA - Unspecified fall, initial encounter (3) History of CVA (cerebrovascular accident) SNOMED Code(s): 382244073 Code(s): Z86.73 - PRSNL HX OF TIA (TIA), AND CEREB INFRC W/O RESID DEFICITS Status: Chronic Current Visit: Yes (4) DM type 2 (diabetes mellitus, type 2) SNOMED Code(s): 78801170 Code(s): E11.9 - TYPE 2 DIABETES MELLITUS WITHOUT COMPLICATIONS Status: Chronic Current Visit: Yes Qualifiers: Diabetes mellitus complication status: with neurologic complications Diabetes mellitus complication detail: with other neurological complication Diabetes mellitus longterm insulin use: with longterm use Qualified Code(s) : E11.49 - Type 2 diabetes mellitus with other diabetic neurological complication; Z79.4 - [employer] (current) use of insulin (5) HTN (hypertension) SNOMED Code(s): 37868497 Code(s): I10 - ESSENTIAL (PRIMARY) HYPERTENSION Status: Acute Current Visit: Yes Qualifiers: Hypertension type: essential hypertension Qualified Code(s): I10 - Essential (primary) hypertension (6) Hypothyroidism SNOMED Code(s): 43868225 Code(s): E03.9 - HYPOTHYROIDISM, UNSPECIFIED Status: Chronic Current Visit: Yes Qualifiers: Hypothyroidism type: unspecified Qualified Code(s): E03.9 - Hypothyroidism , unspecified - Problem List Review Problem List Initiated/Reviewed/Updated: Yes - My Orders Last 24 Hours: My Active Orders 10/18/16 09:46 Patient Status [ADT] Routine 10/18/16 10:00 Aspirin 325 mg PO DAILY 10/18/16 11:10 Resuscitation Status Routine 10/18/16 13:43 Albuterol/Ipratropium [DuoNeb 3.0-0.5 MG/3 ML] 3 ml NEB Q4HRRT PRN 10/18/16 13:44 RT Aerosol Therapy [RC] ASDIRECTED 10/18/16 15:15 Docusate Sodium [Colace] 100 mg PO BID 10/19/16 07:50 RT Incentive Spirometry [RC] ASDIRECTED 10/19/16 08:50 Ankle Min 3V Rt [CR] Routine 10/19/16 08:52 Bisacodyl [Dulcolax] 10 mg RECTAL DAILY PRN - Plan Plan:: This 56 year old female admitted with non-displaced medial right superior pubic ramus fracture 1. Pelvic fracture: Consult PT. WB with FWW as tolerated and as pain is controlled. Oxycontin 10 mg BID and Oxycodone PRN for pain. 2. Leukocytosis: 17,330 today. looking back at baseline it appears WBC between 11,000-15,000. Will obtain CRP, ESR, lactic acid, and peripheral smear. Will obtain CXR due to need for oxygen. 3. HTN: Controlled, Continue home medications of Norvasc, Clonidine patch, HCTZ , Bystolic 4. CAD: Continue Lipitor and ASA 5. DM: Controlled, Continue holding oral medications. Novolog SSI TIDAC and Lantus 6. Hypothyroidism: Continue Levothyroxine 7. Asthma: Continue Breo. Intermittently desaturations. Reports breathing is unchaged from baseline. Noted desaturations overnight during sleep. 1-2 L NC now. Obtain CXR 8. Depression: Continue Paxil. 9. R ankle pain: obtain Xray today. VTE: Lovenox Dispo: earliest discharge to SNF for rehabilitation with PT. <Ethan Bennett - Last Filed: 10/19/16 16:13> - Patient Data Vitals - most recent: Last Vital Signs Temp 99.0 F 10/19/16 12:00 Pulse 97 10/19/16 12:00 Resp 16 10/19/16 12:00 BP 147/70 H 10/19/16 12:00 Pulse Ox 92 L 10/19/16 08:00 I&O - last 24 hours: Intake & Output 10/19/16 10/19/16 10/19/16 06:59 14:59 22:59 Intake Total 750 50 900 Output Total 887 800 Balance -137 50 100 Lab Results last 24 hrs: Laboratory Results - last 24 hr 10/17/16 10/18/16 10/18/16 Range/Units 01:35 05:30 16:28 WBC (4.0-11.0) K/uL RBC (4.30-5.90) M/uL Hgb (12.0-16.0) g/dL Hct (36.0-46.0) % MCV (80.0-98.0) fL MCH (27.0-32.0) pg MCHC (31.0-37.0) g/dL RDW Std Deviation (28.0-62.0) fl RDW Coeff of Leia (11.0-15.0) % Plt Count (150-400) K/uL MPV (7.40-12.00) fL Neut % (Auto) (48.0-80.0) % Lymph % (Auto) (16.0-40.0) % [place] % (Auto) (0.0-15.0) % Eos % (Auto) (0.0-7.0) % Baso % (Auto) (0.0-1.5) % Neut # (1.4-5.7) K/uL Lymph # (0.6-2.4) K/uL [place] # (0.0-0.8) K/uL Eos # (0.0-0.7) K/uL Baso # (0.0-0.1) K/uL Nucleated RBC % /100WBC Nucleated RBCs # K/uL Smear Path Review ESR (0-29) mm/hr Lactate (0.20-2.00) mmol/L Sodium (136-146) mmol/L Potassium (3.5-5.1) mmol/L Chloride (98-110) mmol/L Carbon Dioxide (21-31) mmol/L BUN (6.0-23.0) mg/dL Creatinine (0.6-1.5) mg/dL Est Cr Clr Drug Dosing mL/min Estimated GFR (MDRD) ml/min Glucose (60-110) mg/dL POC Glucose 155 H (60-110) mg/dL Calcium (8.8-10.8) mg/dL Ferritin 7 L (11-307) ng/mL C-Reactive Protein (0.0-0.5) mg/dL Vitamin B12 752 (200-1100) PG/ML 10/18/16 10/19/16 10/19/16 Range/Units 21:20 04:43 04:43 WBC 17.30 H (4.0-11.0) K/uL RBC 3.84 L (4.30-5.90) M/uL Hgb 9.8 L (12.0-16.0) g/dL Hct 32.0 L (36.0-46.0) % MCV 83.3 (80.0-98.0) fL MCH 25.5 L (27.0-32.0) pg MCHC 30.6 L (31.0-37.0) g/dL RDW Std Deviation 59.0 (28.0-62.0) fl RDW Coeff of Leia 19 H (11.0-15.0) % Plt Count 504 H (150-400) K/uL MPV 10.40 (7.40-12.00) fL Neut % (Auto) 69.2 (48.0-80.0) % Lymph % (Auto) 18.7 (16.0-40.0) % [place] % (Auto) 9.0 (0.0-15.0) % Eos % (Auto) 2.8 (0.0-7.0) % Baso % (Auto) 0.3 (0.0-1.5) % Neut # 12.0 H (1.4-5.7) K/uL Lymph # 3.2 H (0.6-2.4) K/uL [place] # 1.6 H (0.0-0.8) K/uL Eos # 0.5 (0.0-0.7) K/uL Baso # 0.1 (0.0-0.1) K/uL Nucleated RBC % 0.2 /100WBC Nucleated RBCs # 0 K/uL Smear Path Review ESR (0-29) mm/hr Lactate (0.20-2.00) mmol/L Sodium 140 (136-146) mmol/L Potassium 4.1 (3.5-5.1) mmol/L Chloride 102 (98-110) mmol/L Carbon Dioxide 27 (21-31) mmol/L BUN 23 (6.0-23.0) mg/dL Creatinine 1.2 (0.6-1.5) mg/dL Est Cr Clr Drug Dosing 45.91 mL/min Estimated GFR (MDRD) 46.1 ml/min Glucose 166 H (60-110) mg/dL POC Glucose 195 H (60-110) mg/dL Calcium 8.0 L (8.8-10.8) mg/dL Ferritin (11-307) ng/mL C-Reactive Protein (0.0-0.5) mg/dL Vitamin B12 (200-1100) PG/ML 03/07/17 03/07/17 03/07/17 Range/Units 04:43 04:43 04:43 WBC (4.0-11.0) K/uL RBC (4.30-5.90) M/uL Hgb (12.0-16.0) g/dL Hct (36.0-46.0) % MCV (80.0-98.0) fL MCH (27.0-32.0) pg MCHC (31.0-37.0) g/dL RDW Std Deviation (28.0-62.0) fl RDW Coeff of Leia (11.0-15.0) % Plt Count (150-400) K/uL MPV (7.40-12.00) fL Neut % (Auto) (48.0-80.0) % Lymph % (Auto) (16.0-40.0) % [place] % (Auto) (0.0-15.0) % Eos % (Auto) (0.0-7.0) % Baso % (Auto) (0.0-1.5) % Neut # (1.4-5.7) K/uL Lymph # (0.6-2.4) K/uL [place] # (0.0-0.8) K/uL Eos # (0.0-0.7) K/uL Baso # (0.0-0.1) K/uL Nucleated RBC % /100WBC Nucleated RBCs # K/uL Smear Path Review SENT TO PATHOLOGY ESR 78 H (0-29) mm/hr Lactate (0.20-2.00) mmol/L Sodium (136-146) mmol/L Potassium (3.5-5.1) mmol/L Chloride (98-110) mmol/L Carbon Dioxide (21-31) mmol/L BUN (6.0-23.0) mg/dL Creatinine (0.6-1.5) mg/dL Est Cr Clr Drug Dosing mL/min Estimated GFR (MDRD) ml/min Glucose (60-110) mg/dL POC Glucose (60-110) mg/dL Calcium (8.8-10.8) mg/dL Ferritin (11-307) ng/mL C-Reactive Protein 9.31 H (0.0-0.5) mg/dL Vitamin B12 (200-1100) PG/ML 10/19/16 10/19/16 10/19/16 Range/Units 06:34 11:28 12:52 WBC (4.0-11.0) K/uL RBC (4.30-5.90) M/uL Hgb (12.0-16.0) g/dL Hct (36.0-46.0) % MCV (80.0-98.0) fL MCH (27.0-32.0) pg MCHC (31.0-37.0) g/dL RDW Std Deviation (28.0-62.0) fl RDW Coeff of Leia (11.0-15.0) % Plt Count (150-400) K/uL MPV (7.40-12.00) fL Neut % (Auto) (48.0-80.0) % Lymph % (Auto) (16.0-40.0) % [place] % (Auto) (0.0-15.0) % Eos % (Auto) (0.0-7.0) % Baso % (Auto) (0.0-1.5) % Neut # (1.4-5.7) K/uL Lymph # (0.6-2.4) K/uL [place] # (0.0-0.8) K/uL Eos # (0.0-0.7) K/uL Baso # (0.0-0.1) K/uL Nucleated RBC % /100WBC Nucleated RBCs # K/uL Smear Path Review ESR (0-29) mm/hr Lactate 1.7 (0.20-2.00) mmol/L Sodium (136-146) mmol/L Potassium (3.5-5.1) mmol/L Chloride (98-110) mmol/L Carbon Dioxide (21-31) mmol/L BUN (6.0-23.0) mg/dL Creatinine (0.6-1.5) mg/dL Est Cr Clr Drug Dosing mL/min Estimated GFR (MDRD) ml/min Glucose (60-110) mg/dL POC Glucose 161 H 222 H (60-110) mg/dL Calcium (8.8-10.8) mg/dL Ferritin (11-307) ng/mL C-Reactive Protein (0.0-0.5) mg/dL Vitamin B12 (200-1100) PG/ML 10/19/16 Range/Units 16:02 WBC (4.0-11.0) K/uL RBC (4.30-5.90) M/uL Hgb (12.0-16.0) g/dL Hct (36.0-46.0) % MCV (80.0-98.0) fL MCH (27.0-32.0) pg MCHC (31.0-37.0) g/dL RDW Std Deviation (28.0-62.0) fl RDW Coeff of Leia (11.0-15.0) % Plt Count (150-400) K/uL MPV (7.40-12.00) fL Neut % (Auto) (48.0-80.0) % Lymph % (Auto) (16.0-40.0) % [place] % (Auto) (0.0-15.0) % Eos % (Auto) (0.0-7.0) % Baso % (Auto) (0.0-1.5) % Neut # (1.4-5.7) K/uL Lymph # (0.6-2.4) K/uL [place] # (0.0-0.8) K/uL Eos # (0.0-0.7) K/uL Baso # (0.0-0.1) K/uL Nucleated RBC % /100WBC Nucleated RBCs # K/uL Smear Path Review ESR (0-29) mm/hr Lactate (0.20-2.00) mmol/L Sodium (136-146) mmol/L Potassium (3.5-5.1) mmol/L Chloride (98-110) mmol/L Carbon Dioxide (21-31) mmol/L BUN (6.0-23.0) mg/dL Creatinine (0.6-1.5) mg/dL Est Cr Clr Drug Dosing mL/min Estimated GFR (MDRD) ml/min Glucose (60-110) mg/dL POC Glucose 205 H (60-110) mg/dL Calcium (8.8-10.8) mg/dL Ferritin (11-307) ng/mL C-Reactive Protein (0.0-0.5) mg/dL Vitamin B12 (200-1100) PG/ML Med Orders - Current: Current Medications Albuterol/Ipratropium (Duoneb 3.0-0.5 Mg/3 Ml) 3 ml NEB Q4HRRT PRN PRN Reason: SOB/Wheezing Amlodipine Besylate (Norvasc) 10 mg PO DAILY [facility] Last Admin: 10/19/16 08:33 Dose: 10 mg Aspirin (Aspirin) 325 mg PO DAILY [facility] Last Admin: 10/19/16 08:34 Dose: 325 mg Atorvastatin Calcium (Lipitor) 40 mg PO DAILY [facility] Last Admin: 10/19/16 08:34 Dose: 40 mg Bisacodyl (Dulcolax) 10 mg RECTAL DAILY PRN PRN Reason: Constipation Clonidine HCl (Catapres-Tts 3) 0.3 mg TOP SEECOMMENT [facility] Docusate Sodium (Colace) 100 mg PO BID [facility] Last Admin: 10/19/16 08:33 Dose: 100 mg Enoxaparin Sodium (Lovenox) 40 mg SUBCUT Q24H [facility] Last Admin: 10/18/16 21:15 Dose: 40 mg Hydrochlorothiazide (Hydrochlorothiazide) 25 mg PO DAILY [facility] Last Admin: 10/19/16 08:34 Dose: 25 mg Ceftriaxone Sodium/Dextrose 1 (gm/ Premix) 50 mls @ 100 mls/hr IV Q24H [facility] Last Admin: 10/19/16 11:23 Dose: 100 mls/hr Sodium Chloride (Normal Saline) 1,000 mls @ 125 mls/hr IV ASDIRECTED [facility] Stop: 10/19/16 20:44 Last Admin: 10/19/16 15:00 Dose: 125 mls/hr Insulin Aspart (Novolog) 0 unit SUBCUT ACBED [facility] PRN Reason: Protocol Last Admin: 10/19/16 11:41 Dose: 4 units Insulin Glargine (Lantus Solostar) 22 units SUBCUT BEDTIME [facility] Last Admin: 10/18/16 21:21 Dose: 22 units Levothyroxine Sodium (Synthroid) 50 mcg PO ACBREAKFAST [facility] Last Admin: 10/19/16 06:36 Dose: 50 mcg Mirtazapine (Remeron) 30 mg PO BEDTIME [facility] Last Admin: 10/18/16 21:15 Dose: 30 mg Multivitamins/Minerals (Thera M Plus) 1 tab PO BEDTIME [facility] Last Admin: 10/18/16 21:15 Dose: 1 tab Oxycodone HCl (Oxycodone) 5 mg PO Q6H PRN PRN Reason: Pain Last Admin: 10/19/16 11:45 Dose: 5 mg Oxycodone HCl (Oxycontin) 10 mg PO Q12HR [facility] Last Admin: 10/19/16 08:34 Dose: 10 mg Paroxetine HCl (Paxil) 40 mg PO DAILY [facility] Last Admin: 10/19/16 08:34 Dose: 40 mg Breo Ellipta ( Fluticasone/Vilanterol 1 Each) 1 each INH DAILY [facility] Last Admin: 10/19/16 08:49 Dose: 1 each Bystolic (Nebevilol) (10mg) 1 each PO BEDTIME [facility] Last Admin: 10/18/16 21:25 Dose: Not Given Trulicity 0.75 Mg 1 each SUBCUT Tu@2100 [facility] Sodium Chloride (Saline Flush) 10 ml FLUSH ASDIRECTED PRN PRN Reason: Keep Vein Open Sodium Chloride (Saline Flush) 2.5 ml FLUSH ASDIRECTED PRN PRN Reason: Keep Vein Open Temazepam (Restoril) 15 mg PO BEDTIME [facility] Last Admin: 10/18/16 21:15 Dose: 15 mg Discontinued Medications Enoxaparin Sodium (Lovenox) 40 mg SUBCUT ONETIME ONE Stop: 10/17/16 02:01 Last Admin: 10/17/16 02:08 Dose: 40 mg Hydralazine HCl (Apresoline) 25 mg PO ONETIME ONE Stop: 10/17/16 17:27 Last Admin: 10/17/16 17:35 Dose: 25 mg Sodium Chloride (Sodium Chloride 0.45%) 1,000 mls @ 125 mls/hr IV ASDIRECTED [facility] Last Admin: 10/17/16 14:32 Dose: 125 mls/hr Sodium Chloride (Sodium Chloride 0.45%) 1,000 mls @ 125 mls/hr IV ASDIRECTED [facility] Iopamidol (Isovue-300 (61%)) 60 ml IVPUSH ONETIME STA Stop: 10/19/16 15:28 Trulicity 0.75 Mg 1 each SUBCUT Tu@0900 [facility] Potassium Chloride (Klor-Con M20) 40 meq PO ONETIME ONE Stop: 10/17/16 08:36 Last Admin: 10/17/16 09:47 Dose: 40 meq Potassium Chloride (Klor-Con M20) 40 meq PO ONETIME ONE Stop: 10/17/16 17:25 Last Admin: 10/17/16 17:35 Dose: 40 meq Sodium Chloride (Saline Flush) 10 ml FLUSH ASDIRECTED PRN PRN Reason: Keep Vein Open Sodium Chloride (Saline Flush) 2.5 ml FLUSH ASDIRECTED PRN PRN Reason: Keep Vein Open - My Orders Last 24 Hours: My Active Orders 10/18/16 20:05 Hemoccult [OCCULT BLOOD DIAGNOSTIC] [OP] Routine 10/19/16 21:00 Patient's Own Medication [Ptom] 1 each SUBCUT Tu@2100 - Plan Plan:: diffuse abdominal tenderness to palpation , significant increase inflammatory markers . Ct abd and pelvis done , awaiting report, will do BC and will start patient prophylactically on Ciprofloxacin and metronidazole iv .
--- NOTE | 2016-10-19 10:28 | CR ---
EXAMINATION: Portable chest radiograph. HISTORY: Leukocytosis. FINDINGS: The trachea is midline. The cardiomediastinal silhouette is within normal limits. No pulmonary infil trates, effusions or pneumothorax. Osseous structures appear unremarkable. IMPRESSION: No acute cardiopulmonary process.
[2016-10-19] MEDS ORDERED: cefTRIAXone 1 GM in Premix Bag 1 BAG IV SCH (10:30)
[2016-10-19] MEDS: oxyCODONE 5 MG Tab PO PRN (11:45)
[2016-10-19] MEDS ORDERED: Sodium Chloride 0.9% 1,000 ML IV SCH (12:45)
--- NOTE | 2016-10-19 13:23 | CR ---
EXAMINATION: Right ankle HISTORY: Fall COMPARISON: None TECHNIQUE: 3 views FINDINGS/IMPRESSION: No definite acute osseous abnormality, dislocation, or fracture identified. Mil d overlying soft tissue swelling is noted. An adequate lateral was not obtained.
[2016-10-19] MEDS ORDERED: Iopamidol 612 MG/ML 100 ML Bottle IVPUSH STA (15:27)
[2016-10-19] MEDS: Ciprofloxacin in D5W 400 MG in Premix Bag 1 BAG IV SCH ×2 (17:30)
[2016-10-19] MEDS: metroNIDAZOLE/Normal Saline 500 MG in Premix Bag 1 BAG IV SCH ×2 (18:35→23:29)
[2016-10-19] MEDS: Polyethylene Glycol 3350 Powder 17 GM Packet PO SCH (18:36)
[2016-10-19] MEDS: Temazepam 15 MG Cap PO SCH (20:44)
[2016-10-19] MEDS: Mirtazapine 15 MG Tab PO SCH (20:45)
[2016-10-19] MEDS: Multivitamins with Iron/Calcium/Folic Acid/Minerals Tab PO SCH (20:45)
[2016-10-19] MEDS: BYSTOLIC 10 MG PO SCH (20:47)
[2016-10-19] MEDS: Insulin Glargine,Human Rec. Analog 100 Units/ML 3 ML Pen SUBCUT SCH (20:54)
[2016-10-19] MEDS: Enoxaparin 40 MG/0.4 ML Syringe SUBCUT SCH (20:59)
[2016-10-20] MEDS: Ciprofloxacin in D5W 400 MG in Premix Bag 1 BAG IV SCH ×2 (04:09)
[2016-10-20] MEDS: metroNIDAZOLE/Normal Saline 500 MG in Premix Bag 1 BAG IV SCH (05:43)
[2016-10-20] MEDS ORDERED: Calcium Carbonate 500 MG Tab.Chew PO ONE (07:51)
[2016-10-20] MEDS: Insulin Aspart 100 Units/ML 3 ML Pen SUBCUT SCH ×4 (07:59→20:52)
[2016-10-20] MEDS: Levothyroxine 50 MCG Tab PO SCH (07:59)
[2016-10-20] MEDS: oxyCODONE ER 10 MG TAB.ER PO SCH ×2 (08:01→20:49)
[2016-10-20] MEDS: amLODIPine 5 MG Tab PO SCH (08:02)
[2016-10-20] MEDS: PARoxetine 20 MG Tab PO SCH (08:02)
[2016-10-20] MEDS: atorvaSTATin 40 MG Tab PO SCH (08:02)
[2016-10-20] MEDS: Aspirin 325 MG Tab PO SCH (08:02)
[2016-10-20] MEDS: Ferrous Sulfate 325 MG Tab PO SCH ×3 (08:02→17:04)
[2016-10-20] MEDS: Docusate Sodium 100 MG Cap PO SCH ×2 (08:02→20:49)
[2016-10-20] MEDS: Polyethylene Glycol 3350 Powder 17 GM Packet PO SCH (08:03)
[2016-10-20] MEDS: Hydrochlorothiazide 25 MG Tab PO SCH (08:03)
[2016-10-20] MEDS ORDERED: Insulin Glargine,Human Rec. Analog 100 Units/ML 3 ML Pen SUBCUT SCH (09:00)
[2016-10-20] MEDS: BREO ELLIPTA INH SCH (09:03)
--- NOTE | 2016-10-20 09:29 | PCM.PN ---
<Linda Sheth M - Last Filed: 10/20/16 11:47> - General Info Date of Service: 10/20/16 Admission Dx/Problem (Free Text): Pelvic fracture, non-displaced. Subjective Update: Doing ok this morning. Complaints of abdominal pain to RUQ and epigastric region. No nausea or pain after eating. No nausea at all. Has no complaints of chest pain, palpitations or SOB. No headaches or blurred vision. Pain to R hip/ pelvis with movement. Has been able to be moved to sit on the edge of the bed. Has not been out of bed yet. Functional Status: Reports: pain controlled, tolerating diet. Denies: ambulating, urinating (munoz placed overnight) - Review of Systems General: Reports: no symptoms. Denies: fever HEENT: Reports: no symptoms. Denies: headaches, sinus congestion, sore throat Pulmonary: Reports: no symptoms. Denies: shortness of breath, cough, sputum Cardiovascular: Reports: no symptoms. Denies: chest pain, edema Gastrointestinal: Reports: Abdominal pain (RUQ and epigastric region), Constipation. Denies: Diarrhea, Nausea, Vomiting Genitourinary: Reports: no symptoms Musculoskeletal: Reports: joint pain (pelvis pain with movement, otherwise under control) Skin: Reports: no symptoms Neurological: Reports: no symptoms Psychiatric: Reports: no symptoms - Patient Data Vitals - most recent: Last Vital Signs Temp 98.1 F 10/20/16 07:00 Pulse 95 10/20/16 07:00 Resp 16 10/20/16 07:00 BP 147/76 H 10/20/16 08:02 Pulse Ox 90 L 10/20/16 07:00 Weight - most recent: 180 lb 0.013 oz I&O - last 24 hours: Intake & Output 10/19/16 10/20/16 10/20/16 22:59 06:59 14:59 Intake Total 1200 1950 Output Total 800 Balance 400 1950 Lab Results last 24 hrs: Laboratory Results - last 24 hr 10/17/16 10/19/16 10/19/16 Range/Units 01:35 04:43 04:43 WBC (4.0-11.0) K/uL RBC (4.30-5.90) M/uL Hgb (12.0-16.0) g/dL Hct (36.0-46.0) % MCV (80.0-98.0) fL MCH (27.0-32.0) pg MCHC (31.0-37.0) g/dL RDW Std Deviation (28.0-62.0) fl RDW Coeff of Leia (11.0-15.0) % Plt Count (150-400) K/uL MPV (7.40-12.00) fL Neut % (Auto) (48.0-80.0) % Lymph % (Auto) (16.0-40.0) % Tyler % (Auto) (0.0-15.0) % Eos % (Auto) (0.0-7.0) % Baso % (Auto) (0.0-1.5) % Neut # (1.4-5.7) K/uL Lymph # (0.6-2.4) K/uL Tyler # (0.0-0.8) K/uL Eos # (0.0-0.7) K/uL Baso # (0.0-0.1) K/uL Nucleated RBC % /100WBC Nucleated RBCs # K/uL ESR 78 H (0-29) mm/hr Lactate (0.20-2.00) mmol/L Sodium (136-146) mmol/L Potassium (3.5-5.1) mmol/L Chloride (98-110) mmol/L Carbon Dioxide (21-31) mmol/L BUN (6.0-23.0) mg/dL Creatinine (0.6-1.5) mg/dL Est Cr Clr Drug Dosing mL/min Estimated GFR (MDRD) ml/min Glucose (60-110) mg/dL POC Glucose (60-110) mg/dL Calcium (8.8-10.8) mg/dL Ferritin 7 L (11-307) ng/mL Total Bilirubin (0.1-1.5) mg/dL AST (5-40) IU/L ALT (8-54) IU/L Alkaline Phosphatase (40-150) C-Reactive Protein 9.31 H (0.0-0.5) mg/dL Total Protein (6.0-8.0) g/dL Albumin (3.5-5.0) g/dL Globulin (2.0-3.5) g/dL Albumin/Globulin Ratio (1.3-2.8) 10/19/16 10/19/16 10/19/16 Range/Units 11:28 12:52 16:02 WBC (4.0-11.0) K/uL RBC (4.30-5.90) M/uL Hgb (12.0-16.0) g/dL Hct (36.0-46.0) % MCV (80.0-98.0) fL MCH (27.0-32.0) pg MCHC (31.0-37.0) g/dL RDW Std Deviation (28.0-62.0) fl RDW Coeff of Leia (11.0-15.0) % Plt Count (150-400) K/uL MPV (7.40-12.00) fL Neut % (Auto) (48.0-80.0) % Lymph % (Auto) (16.0-40.0) % Tyler % (Auto) (0.0-15.0) % Eos % (Auto) (0.0-7.0) % Baso % (Auto) (0.0-1.5) % Neut # (1.4-5.7) K/uL Lymph # (0.6-2.4) K/uL Tyler # (0.0-0.8) K/uL Eos # (0.0-0.7) K/uL Baso # (0.0-0.1) K/uL Nucleated RBC % /100WBC Nucleated RBCs # K/uL ESR (0-29) mm/hr Lactate 1.7 (0.20-2.00) mmol/L Sodium (136-146) mmol/L Potassium (3.5-5.1) mmol/L Chloride (98-110) mmol/L Carbon Dioxide (21-31) mmol/L BUN (6.0-23.0) mg/dL Creatinine (0.6-1.5) mg/dL Est Cr Clr Drug Dosing mL/min Estimated GFR (MDRD) ml/min Glucose (60-110) mg/dL POC Glucose 222 H 205 H (60-110) mg/dL Calcium (8.8-10.8) mg/dL Ferritin (11-307) ng/mL Total Bilirubin (0.1-1.5) mg/dL AST (5-40) IU/L ALT (8-54) IU/L Alkaline Phosphatase (40-150) C-Reactive Protein (0.0-0.5) mg/dL Total Protein (6.0-8.0) g/dL Albumin (3.5-5.0) g/dL Globulin (2.0-3.5) g/dL Albumin/Globulin Ratio (1.3-2.8) 10/19/16 10/20/16 10/20/16 Range/Units 20:50 04:36 04:36 WBC 20.89 H (4.0-11.0) K/uL RBC 3.72 L (4.30-5.90) M/uL Hgb 9.7 L (12.0-16.0) g/dL Hct 31.2 L (36.0-46.0) % MCV 83.9 (80.0-98.0) fL MCH 26.1 L (27.0-32.0) pg MCHC 31.1 (31.0-37.0) g/dL RDW Std Deviation 59.1 (28.0-62.0) fl RDW Coeff of Leia 19 H (11.0-15.0) % Plt Count 504 H (150-400) K/uL MPV 11.20 (7.40-12.00) fL Neut % (Auto) 74.1 (48.0-80.0) % Lymph % (Auto) 12.4 L (16.0-40.0) % Tyler % (Auto) 12.0 (0.0-15.0) % Eos % (Auto) 1.3 (0.0-7.0) % Baso % (Auto) 0.2 (0.0-1.5) % Neut # 15.5 H (1.4-5.7) K/uL Lymph # 2.6 H (0.6-2.4) K/uL Tyler # 2.5 H (0.0-0.8) K/uL Eos # 0.3 (0.0-0.7) K/uL Baso # 0.1 (0.0-0.1) K/uL Nucleated RBC % 0.0 /100WBC Nucleated RBCs # 0 K/uL ESR 68 H (0-29) mm/hr Lactate (0.20-2.00) mmol/L Sodium 137 (136-146) mmol/L Potassium 4.6 (3.5-5.1) mmol/L Chloride 99 (98-110) mmol/L Carbon Dioxide 27 (21-31) mmol/L BUN 22 (6.0-23.0) mg/dL Creatinine 1.2 (0.6-1.5) mg/dL Est Cr Clr Drug Dosing 45.91 mL/min Estimated GFR (MDRD) 46.1 ml/min Glucose 228 H (60-110) mg/dL POC Glucose 267 H (60-110) mg/dL Calcium 7.5 L (8.8-10.8) mg/dL Ferritin (11-307) ng/mL Total Bilirubin 0.3 (0.1-1.5) mg/dL AST 62 H (5-40) IU/L ALT 58 H (8-54) IU/L Alkaline Phosphatase 161 H (40-150) C-Reactive Protein 17.04 H (0.0-0.5) mg/dL Total Protein 6.1 (6.0-8.0) g/dL Albumin 3.2 L (3.5-5.0) g/dL Globulin 2.9 (2.0-3.5) g/dL Albumin/Globulin Ratio 1.1 L (1.3-2.8) Yuriy Results last 24 hrs: Microbiology 10/19/16 17:01 Anaerobic Blood Culture - Final Blood Med Orders - Current: Current Medications Albuterol/Ipratropium (Duoneb 3.0-0.5 Mg/3 Ml) 3 ml NEB Q4HRRT PRN PRN Reason: SOB/Wheezing Amlodipine Besylate (Norvasc) 10 mg PO DAILY [facility] Last Admin: 10/20/16 08:02 Dose: 10 mg Aspirin (Aspirin) 325 mg PO DAILY [facility] Last Admin: 10/20/16 08:02 Dose: 325 mg Atorvastatin Calcium (Lipitor) 40 mg PO DAILY [facility] Last Admin: 10/20/16 08:02 Dose: 40 mg Bisacodyl (Dulcolax) 10 mg RECTAL DAILY PRN PRN Reason: Constipation Clonidine HCl (Catapres-Tts 3) 0.3 mg TOP SEECOMMENT [facility] Docusate Sodium (Colace) 100 mg PO BID [facility] Last Admin: 10/20/16 08:02 Dose: 100 mg Enoxaparin Sodium (Lovenox) 40 mg SUBCUT Q24H [facility] Last Admin: 10/19/16 20:59 Dose: 40 mg Ferrous Sulfate (Ferrous Sulfate) 325 mg PO TIDMEALS [facility] Last Admin: 10/20/16 08:02 Dose: 325 mg Hydrochlorothiazide (Hydrochlorothiazide) 25 mg PO DAILY [facility] Last Admin: 10/20/16 08:03 Dose: 25 mg Ciprofloxacin/Dextrose 400 mg/ (Premix) 200 mls @ 200 mls/hr IV Q12H [facility] Last Admin: 10/20/16 04:09 Dose: 200 mls/hr Metronidazole 500 mg/ Premix 100 mls @ 100 mls/hr IV QID [facility] Last Admin: 10/20/16 05:43 Dose: 100 mls/hr Insulin Aspart (Novolog) 0 unit SUBCUT ACBED [facility] PRN Reason: Protocol Last Admin: 10/20/16 07:59 Dose: 4 units Insulin Glargine (Lantus Solostar) 22 units SUBCUT BEDTIME [facility] Last Admin: 10/19/16 20:54 Dose: 22 units Insulin Glargine (Lantus Solostar) 10 units SUBCUT DAILY [facility] Last Admin: 10/20/16 08:10 Dose: 10 units Levothyroxine Sodium (Synthroid) 50 mcg PO ACBREAKFAST [facility] Last Admin: 10/20/16 07:59 Dose: 50 mcg Mirtazapine (Remeron) 30 mg PO BEDTIME [facility] Last Admin: 10/19/16 20:45 Dose: 30 mg Multivitamins/Minerals (Thera M Plus) 1 tab PO BEDTIME [facility] Last Admin: 10/19/16 20:45 Dose: 1 tab Oxycodone HCl (Oxycodone) 5 mg PO Q6H PRN PRN Reason: Pain Last Admin: 10/19/16 11:45 Dose: 5 mg Oxycodone HCl (Oxycontin) 10 mg PO Q12HR [facility] Last Admin: 10/20/16 08:01 Dose: 10 mg Paroxetine HCl (Paxil) 40 mg PO DAILY [facility] Last Admin: 10/20/16 08:02 Dose: 40 mg Breo Ellipta ( Fluticasone/Vilanterol 1 Each) 1 each INH DAILY [facility] Last Admin: 10/20/16 09:03 Dose: 1 each Bystolic (Nebevilol) (10mg) 1 each PO BEDTIME [facility] Last Admin: 10/19/16 20:47 Dose: Not Given Trulicity 0.75 Mg 1 each SUBCUT Tu@2100 [facility] Last Admin: 10/19/16 20:41 Dose: 1 each Polyethylene Glycol (Miralax) 17 gm PO DAILY [facility] Last Admin: 10/20/16 08:03 Dose: 17 gm Sodium Chloride (Saline Flush) 10 ml FLUSH ASDIRECTED PRN PRN Reason: Keep Vein Open Sodium Chloride (Saline Flush) 2.5 ml FLUSH ASDIRECTED PRN PRN Reason: Keep Vein Open Temazepam (Restoril) 15 mg PO BEDTIME [facility] Last Admin: 10/19/16 20:44 Dose: 15 mg Discontinued Medications Calcium Carbonate/Glycine (Tums) 1,000 mg PO ONETIME ONE Stop: 10/20/16 07:52 Last Admin: 10/20/16 08:11 Dose: 1,000 mg Enoxaparin Sodium (Lovenox) 40 mg SUBCUT ONETIME ONE Stop: 10/17/16 02:01 Last Admin: 10/17/16 02:08 Dose: 40 mg Hydralazine HCl (Apresoline) 25 mg PO ONETIME ONE Stop: 10/17/16 17:27 Last Admin: 10/17/16 17:35 Dose: 25 mg Sodium Chloride (Sodium Chloride 0.45%) 1,000 mls @ 125 mls/hr IV ASDIRECTED [facility] Last Admin: 10/17/16 14:32 Dose: 125 mls/hr Sodium Chloride (Sodium Chloride 0.45%) 1,000 mls @ 125 mls/hr IV ASDIRECTED [facility] Ceftriaxone Sodium/Dextrose 1 (gm/ Premix) 50 mls @ 100 mls/hr IV Q24H [facility] Last Admin: 10/19/16 11:23 Dose: 100 mls/hr Sodium Chloride (Normal Saline) 1,000 mls @ 125 mls/hr IV ASDIRECTED [facility] Stop: 10/19/16 20:44 Last Admin: 10/19/16 15:00 Dose: 125 mls/hr Iopamidol (Isovue-300 (61%)) 60 ml IVPUSH ONETIME STA Stop: 10/19/16 15:28 Last Admin: 10/19/16 16:30 Dose: Not Given Trulicity 0.75 Mg 1 each SUBCUT Tu@0900 [facility] Potassium Chloride (Klor-Con M20) 40 meq PO ONETIME ONE Stop: 10/17/16 08:36 Last Admin: 10/17/16 09:47 Dose: 40 meq Potassium Chloride (Klor-Con M20) 40 meq PO ONETIME ONE Stop: 10/17/16 17:25 Last Admin: 10/17/16 17:35 Dose: 40 meq Sodium Chloride (Saline Flush) 10 ml FLUSH ASDIRECTED PRN PRN Reason: Keep Vein Open Sodium Chloride (Saline Flush) 2.5 ml FLUSH ASDIRECTED PRN PRN Reason: Keep Vein Open - Exam Quality Assessment: urine catheter, DVT prophylaxis General: alert, oriented, cooperative HEENT: Pupils equal, Pupils reactive, EOMI, Mucous membr. moist/pink Neck: supple, +2 carotid pulse wo bruit Lungs: Clear to auscultation, Normal respiratory effort. No: Decreased breath sounds Cardiovascular: regular rate, regular rhythm, no murmurs Abdomen: bowel sounds present, soft, tenderness (epigastric and RUQ) Extremities: no edema, normal pulses, no tenderness/swelling, other (bruising noted to R lateral malleolus, tenderness. No fracture on Xray. Able to move with some pain. Encouraged movement.) Neurological: no new focal deficit Psy/Mental Status: alert, normal affect, normal mood - Problem List & Annotations (1) Pelvic fracture SNOMED Code(s): 88302472 Code(s): S32.9XXA - FRACTURE OF UNSP PARTS OF LUMBOSACRAL SPINE AND PELVIS, INIT Status: Acute Current Visit: Yes Qualifiers: Encounter type: initial encounter Pelvic bone location: other part of pelvis Fracture type: closed Qualified Code(s): S32.89XA - Fracture of other parts of pelvis, initial encounter for closed fracture (2) Fall SNOMED Code(s): 0990748, 965096277 Code(s): W19.XXXA - UNSPECIFIED FALL, INITIAL ENCOUNTER Status: Acute Current Visit: Yes Qualifiers: Encounter type: initial encounter Qualified Code(s): W19.XXXA - Unspecified fall, initial encounter (3) History of CVA (cerebrovascular accident) SNOMED Code(s): 622711651 Code(s): Z86.73 - PRSNL HX OF TIA (TIA), AND CEREB INFRC W/O RESID DEFICITS Status: Chronic Current Visit: Yes (4) DM type 2 (diabetes mellitus, type 2) SNOMED Code(s): 07496136 Code(s): E11.9 - TYPE 2 DIABETES MELLITUS WITHOUT COMPLICATIONS Status: Chronic Current Visit: Yes Qualifiers: Diabetes mellitus complication status: with neurologic complications Diabetes mellitus complication detail: with other neurological complication Diabetes mellitus usp insulin use: with usp use Qualified Code(s) : E11.49 - Type 2 diabetes mellitus with other diabetic neurological complication; Z79.4 - 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 (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) use of insulin (5) HTN (hypertension) SNOMED Code(s): 46249494 Code(s): I10 - ESSENTIAL (PRIMARY) HYPERTENSION Status: Acute Current Visit: Yes Qualifiers: Hypertension type: essential hypertension Qualified Code(s): I10 - Essential (primary) hypertension (6) Hypothyroidism SNOMED Code(s): 07700970 Code(s): E03.9 - HYPOTHYROIDISM, UNSPECIFIED Status: Chronic Current Visit: Yes Qualifiers: Hypothyroidism type: unspecified Qualified Code(s): E03.9 - Hypothyroidism , unspecified - Problem List Review Problem List Initiated/Reviewed/Updated: Yes - My Orders Last 24 Hours: My Active Orders 10/19/16 08:52 Bisacodyl [Dulcolax] 10 mg RECTAL DAILY PRN 10/19/16 12:30 Abdomen Pelvis w wo Cont [CT] Routine 10/20/16 04:36 HEPATITIS PANEL, ACUTE [REF] Urgent 10/20/16 07:49 Abdomen Ltd [US] Routine 10/20/16 09:22 AMYLASE [CHEM] Routine LIPASE [CHEM] Routine 10/21/16 05:00 CBC WITH AUTO DIFF [HEME] DAILY COMPREHENSIVE METABOLIC PN,CMP [CHEM] DAILY CRP [C-REACTIVE PROTEIN] [CHEM] DAILY SEDIMENTATION RATE AUTO [HEME] DAILY 10/22/16 05:00 CBC WITH AUTO DIFF [HEME] DAILY COMPREHENSIVE METABOLIC PN,CMP [CHEM] DAILY CRP [C-REACTIVE PROTEIN] [CHEM] DAILY SEDIMENTATION RATE AUTO [HEME] DAILY - Plan Plan:: This 56 year old female admitted with non-displaced medial right superior pubic ramus fracture 1. Pelvic fracture: Consult PT. WB with FWW as tolerated and as pain is controlled. Oxycontin 10 mg BID and Oxycodone PRN for pain. Reports pain all over to Dr. Bennett, Solumderol 60 mg daily started. Will monitor. 2. Chronic Leukocytosis: 20,890 today, likely reactive to trauma. No source of infection found. ESR and CRP elevated. Having abdominal pain. Abd CT obtained, no acute inflammatory changes, colonic diverticulosis. 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 Will obtained operative report from [facility] from abdominal surgery in 2008. BC pending. Peripheral smear shows reactive leukocytosis to inflammatory process. I spoke with PCP, Dr Valdovinos, we reviewed chart together and it appears she has had persistent chronic leukocytosis since at least 2004. Dr. Valdovinos recommends referral to Heme/onc when she is able to ambulate to clinic. 3. HTN: Controlled, Continue home medications of Norvasc, Clonidine patch, HCTZ , Bystolic 4. CAD: Continue Lipitor and ASA 5. DM: Uncontrolled, Continue holding oral medications. Novolog SSI TIDAC and Lantus 22 at bedtime and 10 units in am. 6. Hypothyroidism: Continue Levothyroxine 7. Asthma: Continue Breo. Intermittently desaturations. Reports breathing is unchanged from baseline. Noted desaturations overnight during sleep. 1-2 L NC now. CXR negative. 8. Depression: Continue Paxil. 9. R ankle pain: No fracture noted, likely a sprain. Ice PRN and encourage movement. 10. Abdominal pain: Discontinue Cipro/Flagyl. No course of infection Elevated LFTs, hepatitis panel. Amylase and lipase WNL. RUQ U/S revealed no acute findings, liver echogenicity normal, no biliary dilation and gallbladder surgically absent. VTE: Lovenox Dispo: earliest discharge to SNF for rehabilitation with PT. <Ethan Bennett - Last Filed: 10/20/16 16:29> - Patient Data Vitals - most recent: Last Vital Signs Temp 97.3 F 10/20/16 15:00 Pulse 100 10/20/16 15:00 Resp 20 10/20/16 15:00 BP 136/80 10/20/16 15:00 Pulse Ox 96 10/20/16 15:00 I&O - last 24 hours: Intake & Output 10/20/16 10/20/16 10/20/16 06:59 14:59 22:59 Intake Total 1950 Balance 1950 Lab Results last 24 hrs: Laboratory Results - last 24 hr 10/19/16 10/20/16 10/20/16 Range/Units 20:50 04:36 04:36 WBC 20.89 H (4.0-11.0) K/uL RBC 3.72 L (4.30-5.90) M/uL Hgb 9.7 L (12.0-16.0) g/dL Hct 31.2 L (36.0-46.0) % MCV 83.9 (80.0-98.0) fL MCH 26.1 L (27.0-32.0) pg MCHC 31.1 (31.0-37.0) g/dL RDW Std Deviation 59.1 (28.0-62.0) fl RDW Coeff of Leia 19 H (11.0-15.0) % Plt Count 504 H (150-400) K/uL MPV 11.20 (7.40-12.00) fL Neut % (Auto) 74.1 (48.0-80.0) % Lymph % (Auto) 12.4 L (16.0-40.0) % Tyler % (Auto) 12.0 (0.0-15.0) % Eos % (Auto) 1.3 (0.0-7.0) % Baso % (Auto) 0.2 (0.0-1.5) % Neut # 15.5 H (1.4-5.7) K/uL Lymph # 2.6 H (0.6-2.4) K/uL Tyler # 2.5 H (0.0-0.8) K/uL Eos # 0.3 (0.0-0.7) K/uL Baso # 0.1 (0.0-0.1) K/uL Nucleated RBC % 0.0 /100WBC Nucleated RBCs # 0 K/uL ESR 68 H (0-29) mm/hr Sodium 137 (136-146) mmol/L Potassium 4.6 (3.5-5.1) mmol/L Chloride 99 (98-110) mmol/L Carbon Dioxide 27 (21-31) mmol/L BUN 22 (6.0-23.0) mg/dL Creatinine 1.2 (0.6-1.5) mg/dL Est Cr Clr Drug Dosing 45.91 mL/min Estimated GFR (MDRD) 46.1 ml/min Glucose 228 H (60-110) mg/dL POC Glucose 267 H (60-110) mg/dL Calcium 7.5 L (8.8-10.8) mg/dL Total Bilirubin 0.3 (0.1-1.5) mg/dL AST 62 H (5-40) IU/L ALT 58 H (8-54) IU/L Alkaline Phosphatase 161 H (40-150) C-Reactive Protein 17.04 H (0.0-0.5) mg/dL Total Protein 6.1 (6.0-8.0) g/dL Albumin 3.2 L (3.5-5.0) g/dL Globulin 2.9 (2.0-3.5) g/dL Albumin/Globulin Ratio 1.1 L (1.3-2.8) Amylase (10-90) U/L Lipase (7-80) U/L 10/20/16 10/20/16 Range/Units 04:36 11:52 WBC (4.0-11.0) K/uL RBC (4.30-5.90) M/uL Hgb (12.0-16.0) g/dL Hct (36.0-46.0) % MCV (80.0-98.0) fL MCH (27.0-32.0) pg MCHC (31.0-37.0) g/dL RDW Std Deviation (28.0-62.0) fl RDW Coeff of Leia (11.0-15.0) % Plt Count (150-400) K/uL MPV (7.40-12.00) fL Neut % (Auto) (48.0-80.0) % Lymph % (Auto) (16.0-40.0) % Tyler % (Auto) (0.0-15.0) % Eos % (Auto) (0.0-7.0) % Baso % (Auto) (0.0-1.5) % Neut # (1.4-5.7) K/uL Lymph # (0.6-2.4) K/uL Tyler # (0.0-0.8) K/uL Eos # (0.0-0.7) K/uL Baso # (0.0-0.1) K/uL Nucleated RBC % /100WBC Nucleated RBCs # K/uL ESR (0-29) mm/hr Sodium (136-146) mmol/L Potassium (3.5-5.1) mmol/L Chloride (98-110) mmol/L Carbon Dioxide (21-31) mmol/L BUN (6.0-23.0) mg/dL Creatinine (0.6-1.5) mg/dL Est Cr Clr Drug Dosing mL/min Estimated GFR (MDRD) ml/min Glucose (60-110) mg/dL POC Glucose 267 H (60-110) mg/dL Calcium (8.8-10.8) mg/dL Total Bilirubin (0.1-1.5) mg/dL AST (5-40) IU/L ALT (8-54) IU/L Alkaline Phosphatase (40-150) C-Reactive Protein (0.0-0.5) mg/dL Total Protein (6.0-8.0) g/dL Albumin (3.5-5.0) g/dL Globulin (2.0-3.5) g/dL Albumin/Globulin Ratio (1.3-2.8) Amylase 33 (10-90) U/L Lipase 20 (7-80) U/L Yuriy Results last 24 hrs: Microbiology 10/19/16 17:01 Anaerobic Blood Culture - Final Blood Med Orders - Current: Current Medications Albuterol/Ipratropium (Duoneb 3.0-0.5 Mg/3 Ml) 3 ml NEB Q4HRRT PRN PRN Reason: SOB/Wheezing Amlodipine Besylate (Norvasc) 10 mg PO DAILY [facility] Last Admin: 10/20/16 08:02 Dose: 10 mg Aspirin (Aspirin) 325 mg PO DAILY [facility] Last Admin: 10/20/16 08:02 Dose: 325 mg Atorvastatin Calcium (Lipitor) 40 mg PO DAILY [facility] Last Admin: 10/20/16 08:02 Dose: 40 mg Bisacodyl (Dulcolax) 10 mg RECTAL DAILY PRN PRN Reason: Constipation Clonidine HCl (Catapres-Tts 3) 0.3 mg TOP SEECOMMENT [facility] Docusate Sodium (Colace) 100 mg PO BID [facility] Last Admin: 10/20/16 08:02 Dose: 100 mg Enoxaparin Sodium (Lovenox) 40 mg SUBCUT Q24H [facility] Last Admin: 10/19/16 20:59 Dose: 40 mg Ferrous Sulfate (Ferrous Sulfate) 325 mg PO TIDMEALS [facility] Last Admin: 10/20/16 12:06 Dose: 325 mg Hydrochlorothiazide (Hydrochlorothiazide) 25 mg PO DAILY [facility] Last Admin: 10/20/16 08:03 Dose: 25 mg Insulin Aspart (Novolog) 0 unit SUBCUT ACBED [facility] PRN Reason: Protocol Last Admin: 10/20/16 12:06 Dose: 6 units Insulin Glargine (Lantus Solostar) 22 units SUBCUT BEDTIME [facility] Last Admin: 10/19/16 20:54 Dose: 22 units Insulin Glargine (Lantus Solostar) 10 units SUBCUT DAILY [facility] Last Admin: 10/20/16 08:10 Dose: 10 units Levothyroxine Sodium (Synthroid) 50 mcg PO ACBREAKFAST [facility] Last Admin: 10/20/16 07:59 Dose: 50 mcg Methylprednisolone Sodium Succinate (Solu-Medrol) 60 mg IVPUSH DAILY [facility] Last Admin: 10/20/16 12:06 Dose: 60 mg Mirtazapine (Remeron) 30 mg PO BEDTIME [facility] Last Admin: 10/19/16 20:45 Dose: 30 mg Multivitamins/Minerals (Thera M Plus) 1 tab PO BEDTIME [facility] Last Admin: 10/19/16 20:45 Dose: 1 tab Oxycodone HCl (Oxycodone) 5 mg PO Q6H PRN PRN Reason: Pain Last Admin: 10/20/16 15:57 Dose: 5 mg Oxycodone HCl (Oxycontin) 10 mg PO Q12HR [facility] Last Admin: 10/20/16 08:01 Dose: 10 mg Paroxetine HCl (Paxil) 40 mg PO DAILY [facility] Last Admin: 10/20/16 08:02 Dose: 40 mg Breo Ellipta ( Fluticasone/Vilanterol 1 Each) 1 each INH DAILY [facility] Last Admin: 10/20/16 09:03 Dose: 1 each Bystolic (Nebevilol) (10mg) 1 each PO BEDTIME [facility] Last Admin: 10/19/16 20:47 Dose: Not Given Trulicity 0.75 Mg 1 each SUBCUT Tu@2100 [facility] Last Admin: 10/19/16 20:41 Dose: 1 each Polyethylene Glycol (Miralax) 17 gm PO DAILY [facility] Last Admin: 10/20/16 08:03 Dose: 17 gm Sodium Chloride (Saline Flush) 10 ml FLUSH ASDIRECTED PRN PRN Reason: Keep Vein Open Sodium Chloride (Saline Flush) 2.5 ml FLUSH ASDIRECTED PRN PRN Reason: Keep Vein Open Temazepam (Restoril) 15 mg PO BEDTIME [facility] Last Admin: 10/19/16 20:44 Dose: 15 mg Discontinued Medications Calcium Carbonate/Glycine (Tums) 1,000 mg PO ONETIME ONE Stop: 10/20/16 07:52 Last Admin: 10/20/16 08:11 Dose: 1,000 mg Enoxaparin Sodium (Lovenox) 40 mg SUBCUT ONETIME ONE Stop: 10/17/16 02:01 Last Admin: 10/17/16 02:08 Dose: 40 mg Hydralazine HCl (Apresoline) 25 mg PO ONETIME ONE Stop: 10/17/16 17:27 Last Admin: 10/17/16 17:35 Dose: 25 mg Sodium Chloride (Sodium Chloride 0.45%) 1,000 mls @ 125 mls/hr IV ASDIRECTED [facility] Last Admin: 10/17/16 14:32 Dose: 125 mls/hr Sodium Chloride (Sodium Chloride 0.45%) 1,000 mls @ 125 mls/hr IV ASDIRECTED [facility] Ceftriaxone Sodium/Dextrose 1 (gm/ Premix) 50 mls @ 100 mls/hr IV Q24H [facility] Last Admin: 10/19/16 11:23 Dose: 100 mls/hr Sodium Chloride (Normal Saline) 1,000 mls @ 125 mls/hr IV ASDIRECTED [facility] Stop: 10/19/16 20:44 Last Admin: 10/19/16 15:00 Dose: 125 mls/hr Ciprofloxacin/Dextrose 400 mg/ (Premix) 200 mls @ 200 mls/hr IV Q12H [facility] Last Admin: 10/20/16 04:09 Dose: 200 mls/hr Metronidazole 500 mg/ Premix 100 mls @ 100 mls/hr IV QID [facility] Last Admin: 10/20/16 05:43 Dose: 100 mls/hr Iopamidol (Isovue-300 (61%)) 60 ml IVPUSH ONETIME STA Stop: 10/19/16 15:28 Last Admin: 10/19/16 16:30 Dose: Not Given Trulicity 0.75 Mg 1 each SUBCUT Tu@0900 [facility] Potassium Chloride (Klor-Con M20) 40 meq PO ONETIME ONE Stop: 10/17/16 08:36 Last Admin: 10/17/16 09:47 Dose: 40 meq Potassium Chloride (Klor-Con M20) 40 meq PO ONETIME ONE Stop: 10/17/16 17:25 Last Admin: 10/17/16 17:35 Dose: 40 meq Sodium Chloride (Saline Flush) 10 ml FLUSH ASDIRECTED PRN PRN Reason: Keep Vein Open Sodium Chloride (Saline Flush) 2.5 ml FLUSH ASDIRECTED PRN PRN Reason: Keep Vein Open - My Orders Last 24 Hours: My Active Orders 10/19/16 17:01 CULTURE BLOOD [BC] Routine 10/19/16 17:25 CULTURE BLOOD [BC] Routine 10/19/16 18:30 Polyethylene Glycol 3350 [MiraLAX] 17 gm PO DAILY 10/19/16 21:00 Patient's Own Medication [Ptom] 1 each SUBCUT Tu@2100 10/20/16 00:59 Urinary Catheter Assessment [RC] ASDIRECTED 10/20/16 01:00 Insert Munoz Catheter [Insert Urinary Catheter] [OM.PC] Q24H 10/20/16 08:00 Ferrous Sulfate 325 mg PO TIDMEALS 10/20/16 09:00 Insulin Glarg,Human.Rec.Analog [LantUS Solostar] 10 units SUBCUT DAILY 10/20/16 11:30 methylPREDNISolone Sod Succ [Solu-MEDROL] 60 mg IVPUSH DAILY - Plan Plan:: Patient has chronic leucocytosis and increased inflamatory markers. ESR 68 today . She reports muscle stiffness in the both arms in the morning and b/Le , diffuse muscle pain . DD _ polymyalgia rheumatica - I would recommend a trial of steroids , f/up esr / crp and f/up patient clinically . patient was seen and examined , CT abd and pelvis and Us RUQ - negative for acute process.
[2016-10-20] MEDS ORDERED: methylPREDNISolone Sodium Succinate 125 MG/2 ML SDV IVPUSH SCH (11:30)
--- NOTE | 2016-10-20 13:24 | CT ---
EXAM DATE: 10/16/16 PATIENT'S AGE: 56 Patient: COCO REILLY Facility: [place], [place] Site . Site : 1960 Study: CT Abdomen/Pelvis [id number]/7/2017 5:25:26 PM Ordering Physician: Donald Long Final Report: HISTORY: Abdomen pain, pelvic fracture. TECHNIQUE: The abdomen and pelvis were scanned before and after administration of 60 cc of Omnipaque 300. Oral contrast was administered. Sagittal and coronal reconstructions were performed. FINDINGS: Lung bases: The small amount of dependent atelectasis seen at the posterior lung bases. Liver and gallbladder: The liver parenchyma is homogeneous. Status post cholecystectomy. Spleen, pancreas and adrenal glands: The spleen is not apparent. 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 Pancreatic parenchyma is homogeneous. Adrenal glands are normal. Kidneys and bladder: There is a tiny focus of cortical calcification upper pole right kidney. Tiny nonobstructing stone is in the lower pole right kidney. Nephrograms are symmetric. There is cortical scarring seen in the upper and lower pole of the right kidney. The upper pole of the right kidney has an 11 mm cyst. Lateral midpole has a 12 mm cyst. The antrum the left kidney is a 13 mm cyst. There is a questionable 2.7 cm isodense mass lower pole left kidney axial image 58 series 301. No hydronephrosis. Bladder is unremarkable. Retroperitoneum and lymph nodes: No evidence of abdominal aortic aneurysm. There is some small periaortic lymph nodes present. GI tract: The stomach is mildly distended with oral contrast. No dilated small bowel loops are seen. There is frothy stool-like contents in the distal small bowel suggesting stasis. The appendix is generous in size. The seen on axial images 105-116. It measures up to 9 mm in diameter axial image 112. There is no surrounding inflammatory change. Contrast is seen throughout the colon. There is diverticula of the descending and sigmoid colon. These are quite numerous in the sigmoid colon. The sigmoid colon is decompressed which results in diffuse wall thickening. There is no pericolonic inflammatory change to suggest diverticulitis. There is no free air in the abdomen. There is no free fluid the pelvis. Pelvic organs: The uterus is absent. Osseous structures: There is a nondisplaced fracture seen through the junction of the right superior pubic ramus, right inferior pubic ramus and pubic bone. No sacral fracture is appreciated. There is a mild L2 compression fracture with bowing of the superior endplate. There is a marked T12 compression fracture with 3 mm of retropulsion. No acute fracture line is identified on the axial images. IMPRESSION: 1. Mild L2 and marked T12 compression fractures. These may be remote. No acute fracture lines identified on axial images. 2. Nondisplaced fracture seen through the medial aspect of the right superior pubic ramus and pubic bone extending into the medial aspect of the inferior pubic ramus. 3. Tiny nonobstructing stones in lower pole right kidney without hydronephrosis for ureteral obstruction. 4. Bilateral renal cysts. 5. Questionable 2.7 cm isodense mass anterior aspect left kidney. Consider ultrasound for further evaluation to determine if this represents a true abnormality. 6. Dilated appendix measuring up to 9 mm in diameter. 6 mm or less is considered normal. However, there is no surrounding inflammatory change to suggest confirm acute appendicitis. 7. Colonic diverticulosis. Dictated by Tabitha Kern MD @ 10/19/2016 5:51:17 PM Dictated by: Tabitha Kern MD @ 10/19/2016 17:51:46 (Electronic Signature) Report Signed by Proxy and Original Signed Document filed in the Medical Record. [facility]
--- NOTE | 2016-10-20 15:35 | US ---
EXAM DATE: 10/16/16 PATIENT'S AGE: 56 Patient: COCO REILLY Facility: [place], [place] Site . Site : 1960 Study: US Abdomen [id number]/8/2017 8:47:52 AM Ordering Physician: Donald Long Final Report: Indication: Elevated liver function tests. Technique: Limited abdomen ultrasound with grayscale and color Doppler imaging. Comparison: CT abdomen pelvis 10/19/2016. Findings: The liver echogenicity appears normal. The gallbladder is surgically absent. Common bile duct diameter is 4 mm. The pancreas is difficult to visualize but no pancreas abnormalities are demonstrated. The right kidney measures 10.0 cm in length. There is no right hydronephrosis. The proximal inferior vena cava appears normal. The proximal abdominal aorta is not aneurysmal. The main portal vein appears patent under color Doppler. Impression: The liver echogenicity is normal. There is no biliary dilatation. Gallbladder is surgically absent. Dictated by Sarita Phelan MD @ Oct 20 2016 9:19AM (Electronic Signature) Report Signed by Proxy and Original Signed Document filed in the Medical Record. [facility]
[2016-10-20] MEDS: oxyCODONE 5 MG Tab PO PRN (15:57)
[2016-10-20] MEDS: Multivitamins with Iron/Calcium/Folic Acid/Minerals Tab PO SCH (20:49)
[2016-10-20] MEDS: Mirtazapine 15 MG Tab PO SCH (20:49)
[2016-10-20] MEDS: Temazepam 15 MG Cap PO SCH (20:49)
[2016-10-20] MEDS: BYSTOLIC 10 MG PO SCH (20:50)
[2016-10-20] MEDS: Insulin Glargine,Human Rec. Analog 100 Units/ML 3 ML Pen SUBCUT SCH (20:55)
[2016-10-20] MEDS: Enoxaparin 40 MG/0.4 ML Syringe SUBCUT SCH (21:00)
[2016-10-21] MEDS: Insulin Aspart 100 Units/ML 3 ML Pen SUBCUT SCH ×2 (07:35→11:51)
[2016-10-21] MEDS: Levothyroxine 50 MCG Tab PO SCH (07:35)
[2016-10-21] MEDS: BREO ELLIPTA INH SCH (08:05)
[2016-10-21] MEDS ORDERED: Insulin Glargine,Human Rec. Analog 100 Units/ML 3 ML Pen SUBCUT SCH (08:32)
[2016-10-21] MEDS ORDERED: Pneumococcal Polyvalent-23 Vaccine 0.5 ML SDV SUBCUT ONE (08:33)
[2016-10-21] MEDS ORDERED: predniSONE 10 MG Tab PO SCH (09:00)
[2016-10-21] MEDS: Aspirin 325 MG Tab PO SCH (09:27)
[2016-10-21] MEDS: oxyCODONE ER 10 MG TAB.ER PO SCH (09:28)
[2016-10-21] MEDS: Hydrochlorothiazide 25 MG Tab PO SCH (09:28)
[2016-10-21] MEDS: atorvaSTATin 40 MG Tab PO SCH (09:28)
[2016-10-21] MEDS: Docusate Sodium 100 MG Cap PO SCH (09:28)
[2016-10-21] MEDS: amLODIPine 5 MG Tab PO SCH (09:28)
[2016-10-21] MEDS: Ferrous Sulfate 325 MG Tab PO SCH ×2 (09:29→11:48)
[2016-10-21] MEDS: PARoxetine 20 MG Tab PO SCH (09:32)
[2016-10-21] MEDS: Polyethylene Glycol 3350 Powder 17 GM Packet PO SCH (09:32)
--- NOTE | 2016-10-21 12:53 | PCM.DCSUM1 ---
<Linda Sheth - Last Filed: 10/21/16 13:17> Discharge Summary - Hospital Course Brief History: This 56 year old female with pmh of CVA x3(most recent approx 5 years ago), CAD, HTN, DM Type 2, asthma, obesity and asplenia presented to the ED on 10/17/2016 after falling at home. She reported she was walking with FWW at home and tripped landing on her right side. SHe had severe pain to her R hip and leg. In the ED leukocytosis noted 23,000, Hgb 9.9. Pelvis CT revealed non- displaced medial right superior pubic ramus fracture. Xray of hip and femur showed no acute abnormality. Ua negative, CXR negative. She was admitted for pelvic fracture, pain control and physical therapy. Orthopedics was consult over the phone regarding fracture, Dr. Good recommened WBAT and pain control. Dr. Rosen from [place] recommend bedrest if unable to ambulate due to pain then mobilize as pain allows. PCP, Dr. Valdovinos. - Discharge Data Discharge Date: 10/21/16 Discharge Disposition: DC/Tfer to SNF 03 Condition: Good - Discharge Diagnosis/Problem(s) (1) Pelvic fracture SNOMED Code(s): 46777097 ICD Code: S32.9XXA - FRACTURE OF UNSP PARTS OF LUMBOSACRAL SPINE AND PELVIS, INIT Status: Acute Qualifiers: Encounter type: initial encounter Pelvic bone location: other part of pelvis Fracture type: closed Qualified Code(s): S32.89XA - Fracture of other parts of pelvis, initial encounter for closed fracture (2) Fall SNOMED Code(s): 0983543, 842052061 ICD Code: W19.XXXA - UNSPECIFIED FALL, INITIAL ENCOUNTER Status: Acute Qualifiers: Encounter type: initial encounter Qualified Code(s): W19.XXXA - Unspecified fall, initial encounter (3) History of CVA (cerebrovascular accident) SNOMED Code(s): 075015150 ICD Code: Z86.73 - PRSNL HX OF TIA (TIA), AND CEREB INFRC W/O RESID DEFICITS Status: Chronic (4) DM type 2 (diabetes mellitus, type 2) SNOMED Code(s): 79879667 ICD Code: E11.9 - TYPE 2 DIABETES MELLITUS WITHOUT COMPLICATIONS Status: Chronic Qualifiers: Diabetes mellitus complication status: with neurologic complications Diabetes mellitus complication detail: with other neurological complication Diabetes mellitus jail insulin use: with terminal makeup operator use Qualified Code(s) : E11.49 - Type 2 diabetes mellitus with other diabetic neurological complication; Z79.4 - alf (current) use of insulin (5) HTN (hypertension) SNOMED Code(s): 39914168 ICD Code: I10 - ESSENTIAL (PRIMARY) HYPERTENSION Status: Acute Qualifiers: Hypertension type: essential hypertension Qualified Code(s): I10 - Essential (primary) hypertension (6) Hypothyroidism SNOMED Code(s): 41912956 ICD Code: E03.9 - HYPOTHYROIDISM, UNSPECIFIED Status: Chronic Qualifiers: Hypothyroidism type: unspecified Qualified Code(s): E03.9 - Hypothyroidism , unspecified (7) Asplenia SNOMED Code(s): 741736328, 507913451 ICD Code: Q89.01 - ASPLENIA (CONGENITAL) Status: Chronic Problem Details : Splenectomy 2008 - Patient Summary/Data Consults: Consultations 10/17/16 01:43 PT Evaluation and Treatment [CONS] Routine - Patient Instructions Diet: Diabetic Diet Activity: As Tolerated, Cough & Deep Breathe, Full Weight Bearing Showering/Bathing: May Shower Notify Provider of: Fever, Increased Pain, Swelling and Redness, Drainage, Nausea and/or Vomiting Other/Special Instructions: Physical Therapy and Occupational Therapy to evaluate and treat. Check blood sugars prior to each meal and at bedtime. Oxygen 1L NC PRN for sats less than 90% secondary to history of asthma. - Discharge Plan Prescriptions/Med Rec: Albuterol/Ipratropium [DuoNeb 3.0-0.5 MG/3 ML] 3 ml NEB Q4HRRT PRN #10 neb PRN Reason: SOB/wheezing oxyCODONE ER [OxyCONTIN] 10 mg PO Q12HR #30 tab.er Aspirin 325 mg PO DAILY #30 tablet Bisacodyl [Dulcolax] 10 mg RECTAL DAILY PRN #10 supp PRN Reason: Constipation Docusate Sodium [Colace] 100 mg PO BID #30 cap Ferrous Sulfate 325 mg PO TIDMEALS #60 tablet Insulin Aspart [NovoLOG] See Protocol SUBCUT ACBED #1 pen Pantoprazole [Protonix] 40 mg PO ACBREAKFAST #30 tab.cr Polyethylene Glycol 3350 [MiraLAX] 17 gm PO DAILY PRN #10 packet PRN Reason: Constipation Temazepam 15 mg PO BEDTIME #30 capsule oxyCODONE 5 mg PO Q6H PRN #20 tablet PRN Reason: Pain predniSONE 20 mg PO DAILY #60 tablet Home Medications: Home Meds Ascorbic Acid [Vitamin C] 1,000 mg PO DAILY 02/18/15 [History] Hydrochlorothiazide 25 mg PO DAILY 02/18/15 [History] Levothyroxine [Synthroid] 50 mcg PO DAILY 02/18/15 [History] Multivit-Min/FA/Lycopene/Lut [Complete Multi 50+] 1 tab PO DAILY 02/18/15 [ History] Nebivolol HCl [Bystolic] 10 mg PO BEDTIME 02/18/15 [History] amLODIPine Besylate [Amlodipine Besylate] 10 mg PO DAILY 02/18/15 [History] atorvaSTATin [Lipitor] 40 mg PO DAILY 02/18/15 [History] metFORMIN [Glucophage] 500 mg PO BID 02/18/15 [History] Albuterol Sulfate [Proair Hfa] 108 mcg IH QID PRN 10/16/16 [History] Dulaglutide [Trulicity] 0.75 mg SQ WEEKLY 10/16/16 [History] Fluticasone/Vilanterol [Breo Ellipta 100-25 MCG Inhalation Kit] 1 each IH ASDIRECTED 10/16/16 [History] Glimepiride [Amaryl] 1 mg PO WITHBREAKFAST 10/16/16 [History] Insulin Glarg,Human.Rec.Analog [LantUS Solostar] 22 units SUBCUT BEDTIME [History] Mirtazapine 30 mg PO BEDTIME 10/16/16 [History] Naproxen Sodium [Aleve] 220 mg PO BID PRN 10/16/16 [History] PARoxetine HCl [Paroxetine HCl] 40 mg PO DAILY 10/16/16 [History] cloNIDine 2.1 mg TD WEEKLY 10/16/16 [History] Albuterol/Ipratropium [DuoNeb 3.0-0.5 MG/3 ML] 3 ml NEB Q4HRRT PRN #10 neb 10/21 [Rx] Aspirin 325 mg PO DAILY #30 tablet 10/21/16 [Rx] Bisacodyl [Dulcolax] 10 mg RECTAL DAILY PRN #10 supp 10/21/16 [Rx] Docusate Sodium [Colace] 100 mg PO BID #30 cap 10/21/16 [Rx] Ferrous Sulfate 325 mg PO TIDMEALS #60 tablet 10/21/16 [Rx] Insulin Aspart [NovoLOG] See Protocol SUBCUT ACBED #1 pen 10/21/16 [Rx] Pantoprazole [Protonix] 40 mg PO ACBREAKFAST #30 tab.cr 10/21/16 [Rx] Polyethylene Glycol 3350 [MiraLAX] 17 gm PO DAILY PRN #10 packet 10/21/16 [Rx] Temazepam 15 mg PO BEDTIME #30 capsule 10/21/16 [Rx] oxyCODONE 5 mg PO Q6H PRN #20 tablet 10/21/16 [Rx] oxyCODONE ER [OxyCONTIN] 10 mg PO Q12HR #30 tab.er 10/21/16 [Rx] predniSONE 20 mg PO DAILY #60 tablet 10/21/16 [Rx] Patient Handouts: Docusate Sodium; Senna tablets or capsules, Insulin Aspart injection, Oxycodone tablets or capsules, Bisacodyl suppositories, Iron tablets , capsules, extended-release tablets, Pantoprazole tablets, Aspirin, ASA oral tablets, Simple Pelvic Fracture, Adult, Albuterol; Ipratropium solution for inhalation, Prednisone tablets, Oxycodone extended-release tablets, Polyethylene Glycol powder Referrals: Dean Gibson MD [Physician] - 11/04/16 (on his next [place] rounds ) - Discharge Summary/Plan Comment DC Time >30 min.: Yes Discharge Summary/Plan Comment: Discharge Diagnoses: Non-displaced pelvic fracture HTN DM type 2 hx CVA x 3 CAD Asthma Asplenia Hx partial distal pancreatectomy Obesity Danae was admitted and PT was consulted for ambulation due to pelvic fracture. She was started on Oxycontin ER 10 mg BID with Oxycodone 5 mg Q6hr PRN pain. This controlled pain well and patient remained alert and oriented. Patient worked with PT and on day of discharge she was able to ambulate a few steps with assistance and FWW to the chair. During her stay persistent leukocytosis was noted, and per baseline it is chronically elevated. Thorough workup for infection was completed including BC, UA, CXR (all negative) and abdominal CT, due to abdominal pain. Peripheral smear was completed as well which revealed reactive leukocytosis. CT of abdomen revealed tiny non-obstructing renal stones in R kidney without hydronephrosis and dilated appendix 9mm, without surrounding inflammation. They also noted NO apparent spleen, did note 2.5 x 2.1cm regenerated spleen or splenule posterior to the fundus of the stomach. She denied spleenectomy, and stated her abdominal surgery in 2008 was to remove colon due to an infection. Through contacting [facility] in [place] we were able to obtain operative note. In 2008 she was admitted for perforated splenic abscess. She underwent an exploratory laporatomy with spleenectomy and distal pancreatectomy. She did not recall this. Her PCP was notified via phone and operative report faxed to him. Asplenia is likely reason for chronic persistent leukocytosis. She will be given Pneumonvoccal vaccine and Menigoccocal vaccine. She did obtain influenza vaccine this year. During her stay she also complained of some all over joint pain, ESR and CRP elevated. Solu-medrol was started for polymyalgia rheumatica. This was started for 1 day prior to discharge and she showed improvement in joint pain. Will continue Prednisone 20 mg for now and have PCP follow up with this. BS elevated during stay, which may be secondary to holding oral medications as well as oral steroids. Will restart these on transfer to [place] as well as continue Lantus with Novolog SSI. Dr. Dean Gibson was notified of patient transfer to [place] and medical history. He has agreed to accept patient once transferred to [place]. Dr. Valdovinos, PCP is also aware of patient being transferred to [place] for short term rehab secondary to pelvic fracture. - General Info Date of Service: 10/21/16 Admission Dx/Problem (Free Text: Pelvic fracture, non-displaced. Subjective Update: Doing well this morning, sitting up in the chair for the first time. Complaints of abdominal pain are no longer there after having large BM yesterday. No nausea ,vomiting, no complaints of chest pain, palpitations or SOB. No headaches or blurred vision. Pain to R hip/pelvis with movement. Functional Status: Reports: pain controlled, tolerating diet, ambulating, urinating - Review of Systems General: Reports: no symptoms. Denies: fever HEENT: Reports: no symptoms. Denies: sinus congestion, sore throat, rhinitis Pulmonary: Reports: no symptoms. Denies: cough, sputum Cardiovascular: Reports: no symptoms. Denies: edema Gastrointestinal: Reports: No symptoms. Denies: Abdominal pain, Nausea, Vomiting Genitourinary: Reports: no symptoms. Denies: dysuria, frequency, burning, pain Musculoskeletal: Reports: leg pain (R hip/pelvic pain.) Skin: Reports: no symptoms Neurological: Reports: no symptoms Psychiatric: Reports: no symptoms - Patient Data Vitals - Most Recent: Last Vital Signs Temp 97.2 F 10/21/16 08:00 Pulse 81 10/21/16 08:00 Resp 22 H 10/21/16 08:00 BP 142/84 H 10/21/16 09:28 Pulse Ox 90 L 10/21/16 08:00 Weight - Most Recent: 180 lb 0.013 oz I&O - Last 24 hours: Intake & Output 10/20/16 10/21/16 10/21/16 22:59 06:59 14:59 Intake Total 740 940 Output Total 1674 4330 Balance -935 -810 Lab Results - Last 24 hrs: Laboratory Results - last 24 hr 10/20/16 10/20/16 10/21/16 Range/Units 16:46 20:48 05:00 WBC 21.08 H (4.0-11.0) K/uL RBC 3.70 L (4.30-5.90) M/uL Hgb 9.3 L (12.0-16.0) g/dL Hct 30.1 L (36.0-46.0) % MCV 81.4 (80.0-98.0) fL MCH 25.1 L (27.0-32.0) pg MCHC 30.9 L (31.0-37.0) g/dL RDW Std Deviation 56.5 (28.0-62.0) fl RDW Coeff of Leia 19 H (11.0-15.0) % Plt Count 528 H (150-400) K/uL MPV 11.30 (7.40-12.00) fL Neut % (Auto) 87.6 H (48.0-80.0) % Lymph % (Auto) 4.8 L (16.0-40.0) % [place] % (Auto) 7.6 (0.0-15.0) % Eos % (Auto) 0.0 (0.0-7.0) % Baso % (Auto) 0.0 (0.0-1.5) % Neut # 18.5 H (1.4-5.7) K/uL Lymph # 1.0 (0.6-2.4) K/uL [place] # 1.6 H (0.0-0.8) K/uL Eos # 0.0 (0.0-0.7) K/uL Baso # 0.0 (0.0-0.1) K/uL Nucleated RBC % 0.0 /100WBC Nucleated RBCs # 0 K/uL Sodium (136-146) mmol/L Potassium (3.5-5.1) mmol/L Chloride (98-110) mmol/L Carbon Dioxide (21-31) mmol/L BUN (6.0-23.0) mg/dL Creatinine (0.6-1.5) mg/dL Est Cr Clr Drug Dosing mL/min Estimated GFR (MDRD) ml/min Glucose (60-110) mg/dL POC Glucose 311 H 297 H (60-110) mg/dL Calcium (8.8-10.8) mg/dL Total Bilirubin (0.1-1.5) mg/dL AST (5-40) IU/L ALT (8-54) IU/L Alkaline Phosphatase (40-150) Total Protein (6.0-8.0) g/dL Albumin (3.5-5.0) g/dL Globulin (2.0-3.5) g/dL Albumin/Globulin Ratio (1.3-2.8) 10/21/16 10/21/16 10/21/16 Range/Units 05:00 07:05 11:50 WBC (4.0-11.0) K/uL RBC (4.30-5.90) M/uL Hgb (12.0-16.0) g/dL Hct (36.0-46.0) % MCV (80.0-98.0) fL MCH (27.0-32.0) pg MCHC (31.0-37.0) g/dL RDW Std Deviation (28.0-62.0) fl RDW Coeff of Leia (11.0-15.0) % Plt Count (150-400) K/uL MPV (7.40-12.00) fL Neut % (Auto) (48.0-80.0) % Lymph % (Auto) (16.0-40.0) % [place] % (Auto) (0.0-15.0) % Eos % (Auto) (0.0-7.0) % Baso % (Auto) (0.0-1.5) % Neut # (1.4-5.7) K/uL Lymph # (0.6-2.4) K/uL [place] # (0.0-0.8) K/uL Eos # (0.0-0.7) K/uL Baso # (0.0-0.1) K/uL Nucleated RBC % /100WBC Nucleated RBCs # K/uL Sodium 137 (136-146) mmol/L Potassium 4.5 (3.5-5.1) mmol/L Chloride 99 (98-110) mmol/L Carbon Dioxide 27 (21-31) mmol/L BUN 35 H (6.0-23.0) mg/dL Creatinine 1.3 (0.6-1.5) mg/dL Est Cr Clr Drug Dosing 42.38 mL/min Estimated GFR (MDRD) 42.1 ml/min Glucose 310 H (60-110) mg/dL POC Glucose 262 H 333 H (60-110) mg/dL Calcium 7.9 L (8.8-10.8) mg/dL Total Bilirubin 0.3 (0.1-1.5) mg/dL AST 33 (5-40) IU/L ALT 54 (8-54) IU/L Alkaline Phosphatase 164 H (40-150) Total Protein 6.0 (6.0-8.0) g/dL Albumin 3.0 L (3.5-5.0) g/dL Globulin 3.0 (2.0-3.5) g/dL Albumin/Globulin Ratio 1.0 L (1.3-2.8) PAUL Results - Last 24 hrs: Microbiology 10/20/16 23:00 Stool Occult Blood (PAUL) - Final Stool / Feces NEGATIVE OCCULT BLOOD 10/19/16 17:25 Aerobic Blood Culture - Preliminary Blood NO GROWTH AFTER 1 DAY Anaerobic Blood Culture - Preliminary NO GROWTH AFTER 1 DAY 10/19/16 17:01 Aerobic Blood Culture - Preliminary Blood NO GROWTH AFTER 1 DAY Anaerobic Blood Culture - Final Med Orders - Current: Current Medications Albuterol/Ipratropium (Duoneb 3.0-0.5 Mg/3 Ml) 3 ml NEB Q4HRRT PRN PRN Reason: SOB/Wheezing Amlodipine Besylate (Norvasc) 10 mg PO DAILY [facility] Last Admin: 10/21/16 09:28 Dose: 10 mg Aspirin (Aspirin) 325 mg PO DAILY [facility] Last Admin: 10/21/16 09:27 Dose: 325 mg Atorvastatin Calcium (Lipitor) 40 mg PO DAILY [facility] Last Admin: 10/21/16 09:28 Dose: 40 mg Bisacodyl (Dulcolax) 10 mg RECTAL DAILY PRN PRN Reason: Constipation Last Admin: 10/20/16 21:02 Dose: 10 mg Clonidine HCl (Catapres-Tts 3) 0.3 mg TOP SEECOMMENT [facility] Docusate Sodium (Colace) 100 mg PO BID [facility] Last Admin: 10/21/16 09:28 Dose: 100 mg Enoxaparin Sodium (Lovenox) 40 mg SUBCUT Q24H [facility] Last Admin: 10/20/16 21:00 Dose: 40 mg Ferrous Sulfate (Ferrous Sulfate) 325 mg PO TIDMEALS [facility] Last Admin: 10/21/16 11:48 Dose: 325 mg Hydrochlorothiazide (Hydrochlorothiazide) 25 mg PO DAILY [facility] Last Admin: 10/21/16 09:28 Dose: 25 mg Insulin Aspart (Novolog) 0 unit SUBCUT ACBED [facility] PRN Reason: Protocol Last Admin: 10/21/16 11:51 Dose: 8 units Insulin Glargine (Lantus Solostar) 22 units SUBCUT BEDTIME [facility] Last Admin: 10/20/16 20:55 Dose: 22 units Insulin Glargine (Lantus Solostar) 15 units SUBCUT DAILY [facility] Last Admin: 10/21/16 09:33 Dose: 15 units Levothyroxine Sodium (Synthroid) 50 mcg PO ACBREAKFAST [facility] Last Admin: 10/21/16 07:35 Dose: 50 mcg Meningococcal Polysaccharide Vacc (Menactra) 4 mcg IM .ONCE ONE Stop: 10/22/16 10:31 Mirtazapine (Remeron) 30 mg PO BEDTIME [facility] Last Admin: 10/20/16 20:49 Dose: 30 mg Multivitamins/Minerals (Thera M Plus) 1 tab PO BEDTIME [facility] Last Admin: 10/20/16 20:49 Dose: 1 tab Oxycodone HCl (Oxycodone) 5 mg PO Q6H PRN PRN Reason: Pain Last Admin: 10/20/16 15:57 Dose: 5 mg Oxycodone HCl (Oxycontin) 10 mg PO Q12HR [facility] Last Admin: 10/21/16 09:28 Dose: 10 mg Paroxetine HCl (Paxil) 40 mg PO DAILY [facility] Last Admin: 10/21/16 09:32 Dose: 40 mg Breo Ellipta ( Fluticasone/Vilanterol 1 Each) 1 each INH DAILY [facility] Last Admin: 10/21/16 08:05 Dose: 1 each Bystolic (Nebevilol) (10mg) 1 each PO BEDTIME [facility] Last Admin: 10/20/16 20:50 Dose: Not Given Trulicity 0.75 Mg 1 each SUBCUT Tu@2100 [facility] Last Admin: 10/19/16 20:41 Dose: 1 each Polyethylene Glycol (Miralax) 17 gm PO DAILY [facility] Last Admin: 10/21/16 09:32 Dose: Not Given Prednisone (Prednisone) 20 mg PO DAILY [facility] Last Admin: 10/21/16 10:15 Dose: 20 mg Sodium Chloride (Saline Flush) 10 ml FLUSH ASDIRECTED PRN PRN Reason: Keep Vein Open Sodium Chloride (Saline Flush) 2.5 ml FLUSH ASDIRECTED PRN PRN Reason: Keep Vein Open Temazepam (Restoril) 15 mg PO BEDTIME [facility] Last Admin: 10/20/16 20:49 Dose: 15 mg Discontinued Medications Calcium Carbonate/Glycine (Tums) 1,000 mg PO ONETIME ONE Stop: 10/20/16 07:52 Last Admin: 10/20/16 08:11 Dose: 1,000 mg Enoxaparin Sodium (Lovenox) 40 mg SUBCUT ONETIME ONE Stop: 10/17/16 02:01 Last Admin: 10/17/16 02:08 Dose: 40 mg Hydralazine HCl (Apresoline) 25 mg PO ONETIME ONE Stop: 10/17/16 17:27 Last Admin: 10/17/16 17:35 Dose: 25 mg Sodium Chloride (Sodium Chloride 0.45%) 1,000 mls @ 125 mls/hr IV ASDIRECTED [facility] Last Admin: 10/17/16 14:32 Dose: 125 mls/hr Sodium Chloride (Sodium Chloride 0.45%) 1,000 mls @ 125 mls/hr IV ASDIRECTED [facility] Ceftriaxone Sodium/Dextrose 1 (gm/ Premix) 50 mls @ 100 mls/hr IV Q24H [facility] Last Admin: 10/19/16 11:23 Dose: 100 mls/hr Sodium Chloride (Normal Saline) 1,000 mls @ 125 mls/hr IV ASDIRECTED [facility] Stop: 10/19/16 20:44 Last Admin: 10/19/16 15:00 Dose: 125 mls/hr Ciprofloxacin/Dextrose 400 mg/ (Premix) 200 mls @ 200 mls/hr IV Q12H [facility] Last Admin: 10/20/16 04:09 Dose: 200 mls/hr Metronidazole 500 mg/ Premix 100 mls @ 100 mls/hr IV QID [facility] Last Admin: 10/20/16 05:43 Dose: 100 mls/hr Insulin Glargine (Lantus Solostar) 10 units SUBCUT DAILY [facility] Last Admin: 10/20/16 08:10 Dose: 10 units Iopamidol (Isovue-300 (61%)) 60 ml IVPUSH ONETIME STA Stop: 10/19/16 15:28 Last Admin: 10/19/16 16:30 Dose: Not Given Methylprednisolone Sodium Succinate (Solu-Medrol) 60 mg IVPUSH DAILY [facility] Last Admin: 10/20/16 12:06 Dose: 60 mg Trulicity 0.75 Mg 1 each SUBCUT Tu@0900 [facility] Pneumococcal Polyvalent Vaccine (Pneumovax 23) 0.5 ml SUBCUT .ONCE ONE Stop: 10/21/16 08:34 Last Admin: 10/21/16 10:19 Dose: 0.5 ml Potassium Chloride (Klor-Con M20) 40 meq PO ONETIME ONE Stop: 10/17/16 08:36 Last Admin: 10/17/16 09:47 Dose: 40 meq Potassium Chloride (Klor-Con M20) 40 meq PO ONETIME ONE Stop: 10/17/16 17:25 Last Admin: 10/17/16 17:35 Dose: 40 meq Sodium Chloride (Saline Flush) 10 ml FLUSH ASDIRECTED PRN PRN Reason: Keep Vein Open Sodium Chloride (Saline Flush) 2.5 ml FLUSH ASDIRECTED PRN PRN Reason: Keep Vein Open - Exam General: Reports: alert, oriented, cooperative Neck: Reports: supple Lungs: Reports: Clear to auscultation, Normal respiratory effort Cardiovascular: Reports: regular rate, regular rhythm, no murmurs Abdomen: Reports: bowel sounds present, soft, no tenderness, no distension Extremities: Reports: no edema, normal pulses, no calf tenderness Skin: Reports: other (bruising over R ankle from fall, likely a sprain. Xray negative for fracture. ) Neurological: Reports: no new focal deficit Psy/Mental Status: Reports: alert, normal affect, normal mood *Q Meaningful Use (DIS) - VTE *Q VTE Criteria *Q: - Stroke *Q Stroke Criteria *Q: - AMI *Q AMI Criteria *Q: <Ethan Bennett - Last Filed: 10/21/16 16:36> Discharge Summary - Discharge Diagnosis/Problem(s) (1) Polymyalgia rheumatica syndrome SNOMED Code(s): 21808962 ICD Code: M35.3 - POLYMYALGIA RHEUMATICA Status: Acute - Patient Summary/Data Consults: Consultations 10/17/16 01:43 PT Evaluation and Treatment [CONS] Routine - Discharge Summary/Plan Comment Discharge Summary/Plan Comment: Esr , Crp very high in the 70' - General Info Subjective Update: Patient had b/l diffuse pain and muscle stiffness b/l upper extremities and b/l lower extremities, chronic and high ESR , in the70' and high CRP - Patient Data Vitals - Most Recent: Last Vital Signs Temp 97.3 F 10/21/16 12:00 Pulse 88 10/21/16 12:00 Resp 20 10/21/16 12:00 BP 159/89 H 10/21/16 12:00 Pulse Ox 99 10/21/16 12:00 I&O - Last 24 hours: Intake & Output 10/21/16 10/21/16 10/21/16 06:59 14:59 22:59 Intake Total 940 600 Output Total 1750 250 Balance -810 350 Lab Results - Last 24 hrs: Laboratory Results - last 24 hr 10/20/16 10/20/1617 Range/Units 16:46 20:48 05:00 WBC 21.08 H (4.0-11.0) K/uL RBC 3.70 L (4.30-5.90) M/uL Hgb 9.3 L (12.0-16.0) g/dL Hct 30.1 L (36.0-46.0) % MCV 81.4 (80.0-98.0) fL MCH 25.1 L (27.0-32.0) pg MCHC 30.9 L (31.0-37.0) g/dL RDW Std Deviation 56.5 (28.0-62.0) fl RDW Coeff of Leia 19 H (11.0-15.0) % Plt Count 528 H (150-400) K/uL MPV 11.30 (7.40-12.00) fL Neut % (Auto) 87.6 H (48.0-80.0) % Lymph % (Auto) 4.8 L (16.0-40.0) % [place] % (Auto) 7.6 (0.0-15.0) % Eos % (Auto) 0.0 (0.0-7.0) % Baso % (Auto) 0.0 (0.0-1.5) % Neut # 18.5 H (1.4-5.7) K/uL Lymph # 1.0 (0.6-2.4) K/uL [place] # 1.6 H (0.0-0.8) K/uL Eos # 0.0 (0.0-0.7) K/uL Baso # 0.0 (0.0-0.1) K/uL Nucleated RBC % 0.0 /100WBC Nucleated RBCs # 0 K/uL Sodium (136-146) mmol/L Potassium (3.5-5.1) mmol/L Chloride (98-110) mmol/L Carbon Dioxide (21-31) mmol/L BUN (6.0-23.0) mg/dL Creatinine (0.6-1.5) mg/dL Est Cr Clr Drug Dosing mL/min Estimated GFR (MDRD) ml/min Glucose (60-110) mg/dL POC Glucose 311 H 297 H (60-110) mg/dL Calcium (8.8-10.8) mg/dL Total Bilirubin (0.1-1.5) mg/dL AST (5-40) IU/L ALT (8-54) IU/L Alkaline Phosphatase (40-150) Total Protein (6.0-8.0) g/dL Albumin (3.5-5.0) g/dL Globulin (2.0-3.5) g/dL Albumin/Globulin Ratio (1.3-2.8) 10/21/16 10/21/16 10/21/16 Range/Units 05:00 07:05 11:50 WBC (4.0-11.0) K/uL RBC (4.30-5.90) M/uL Hgb (12.0-16.0) g/dL Hct (36.0-46.0) % MCV (80.0-98.0) fL MCH (27.0-32.0) pg MCHC (31.0-37.0) g/dL RDW Std Deviation (28.0-62.0) fl RDW Coeff of Leia (11.0-15.0) % Plt Count (150-400) K/uL MPV (7.40-12.00) fL Neut % (Auto) (48.0-80.0) % Lymph % (Auto) (16.0-40.0) % [place] % (Auto) (0.0-15.0) % Eos % (Auto) (0.0-7.0) % Baso % (Auto) (0.0-1.5) % Neut # (1.4-5.7) K/uL Lymph # (0.6-2.4) K/uL [place] # (0.0-0.8) K/uL Eos # (0.0-0.7) K/uL Baso # (0.0-0.1) K/uL Nucleated RBC % /100WBC Nucleated RBCs # K/uL Sodium 137 (136-146) mmol/L Potassium 4.5 (3.5-5.1) mmol/L Chloride 99 (98-110) mmol/L Carbon Dioxide 27 (21-31) mmol/L BUN 35 H (6.0-23.0) mg/dL Creatinine 1.3 (0.6-1.5) mg/dL Est Cr Clr Drug Dosing 42.38 mL/min Estimated GFR (MDRD) 42.1 ml/min Glucose 310 H (60-110) mg/dL POC Glucose 262 H 333 H (60-110) mg/dL Calcium 7.9 L (8.8-10.8) mg/dL Total Bilirubin 0.3 (0.1-1.5) mg/dL AST 33 (5-40) IU/L ALT 54 (8-54) IU/L Alkaline Phosphatase 164 H (40-150) Total Protein 6.0 (6.0-8.0) g/dL Albumin 3.0 L (3.5-5.0) g/dL Globulin 3.0 (2.0-3.5) g/dL Albumin/Globulin Ratio 1.0 L (1.3-2.8) PAUL Results - Last 24 hrs: Microbiology 10/20/16 23:00 Stool Occult Blood (PAUL) - Final Stool / Feces NEGATIVE OCCULT BLOOD 10/19/16 17:25 Aerobic Blood Culture - Preliminary Blood NO GROWTH AFTER 1 DAY Anaerobic Blood Culture - Preliminary NO GROWTH AFTER 1 DAY 10/19/16 17:01 Aerobic Blood Culture - Preliminary Blood NO GROWTH AFTER 1 DAY Anaerobic Blood Culture - Final Med Orders - Current: Current Medications Discontinued Medications Albuterol/Ipratropium (Duoneb 3.0-0.5 Mg/3 Ml) 3 ml NEB Q4HRRT PRN PRN Reason: SOB/Wheezing Amlodipine Besylate (Norvasc) 10 mg PO DAILY [facility] Last Admin: 10/21/16 09:28 Dose: 10 mg Aspirin (Aspirin) 325 mg PO DAILY [facility] Last Admin: 10/21/16 09:27 Dose: 325 mg Atorvastatin Calcium (Lipitor) 40 mg PO DAILY [facility] Last Admin: 10/21/16 09:28 Dose: 40 mg Bisacodyl (Dulcolax) 10 mg RECTAL DAILY PRN PRN Reason: Constipation Last Admin: 10/20/16 21:02 Dose: 10 mg Calcium Carbonate/Glycine (Tums) 1,000 mg PO ONETIME ONE Stop: 10/20/16 07:52 Last Admin: 10/20/16 08:11 Dose: 1,000 mg Clonidine HCl (Catapres-Tts 3) 0.3 mg TOP SEECOMMENT [facility] Docusate Sodium (Colace) 100 mg PO BID [facility] Last Admin: 10/21/16 09:28 Dose: 100 mg Enoxaparin Sodium (Lovenox) 40 mg SUBCUT Q24H [facility] Last Admin: 10/20/16 21:00 Dose: 40 mg Enoxaparin Sodium (Lovenox) 40 mg SUBCUT ONETIME ONE Stop: 10/17/16 02:01 Last Admin: 10/17/16 02:08 Dose: 40 mg Ferrous Sulfate (Ferrous Sulfate) 325 mg PO TIDMEALS [facility] Last Admin: 10/21/16 11:48 Dose: 325 mg Hydralazine HCl (Apresoline) 25 mg PO ONETIME ONE Stop: 10/17/16 17:27 Last Admin: 10/17/16 17:35 Dose: 25 mg Hydrochlorothiazide (Hydrochlorothiazide) 25 mg PO DAILY [facility] Last Admin: 10/21/16 09:28 Dose: 25 mg Sodium Chloride (Sodium Chloride 0.45%) 1,000 mls @ 125 mls/hr IV ASDIRECTED [facility] Last Admin: 10/17/16 14:32 Dose: 125 mls/hr Sodium Chloride (Sodium Chloride 0.45%) 1,000 mls @ 125 mls/hr IV ASDIRECTED [facility] Ceftriaxone Sodium/Dextrose 1 (gm/ Premix) 50 mls @ 100 mls/hr IV Q24H [facility] Last Admin: 10/19/16 11:23 Dose: 100 mls/hr Sodium Chloride (Normal Saline) 1,000 mls @ 125 mls/hr IV ASDIRECTED [facility] Stop: 10/19/16 20:44 Last Admin: 10/19/16 15:00 Dose: 125 mls/hr Ciprofloxacin/Dextrose 400 mg/ (Premix) 200 mls @ 200 mls/hr IV Q12H [facility] Last Admin: 10/20/16 04:09 Dose: 200 mls/hr Metronidazole 500 mg/ Premix 100 mls @ 100 mls/hr IV QID [facility] Last Admin: 10/20/16 05:43 Dose: 100 mls/hr Insulin Aspart (Novolog) 0 unit SUBCUT ACBED [facility] PRN Reason: Protocol Last Admin: 10/21/16 11:51 Dose: 8 units Insulin Glargine (Lantus Solostar) 22 units SUBCUT BEDTIME [facility] Last Admin: 10/20/16 20:55 Dose: 22 units Insulin Glargine (Lantus Solostar) 10 units SUBCUT DAILY [facility] Last Admin: 10/20/16 08:10 Dose: 10 units Insulin Glargine (Lantus Solostar) 15 units SUBCUT DAILY [facility] Last Admin: 10/21/16 09:33 Dose: 15 units Iopamidol (Isovue-300 (61%)) 60 ml IVPUSH ONETIME STA Stop: 10/19/16 15:28 Last Admin: 10/19/16 16:30 Dose: Not Given Levothyroxine Sodium (Synthroid) 50 mcg PO ACBREAKFAST [facility] Last Admin: 10/21/16 07:35 Dose: 50 mcg Meningococcal Polysaccharide Vacc (Menactra) 4 mcg IM .ONCE ONE Stop: 10/22/16 10:31 Methylprednisolone Sodium Succinate (Solu-Medrol) 60 mg IVPUSH DAILY [facility] Last Admin: 10/20/16 12:06 Dose: 60 mg Mirtazapine (Remeron) 30 mg PO BEDTIME [facility] Last Admin: 10/20/16 20:49 Dose: 30 mg Multivitamins/Minerals (Thera M Plus) 1 tab PO BEDTIME [facility] Last Admin: 10/20/16 20:49 Dose: 1 tab Oxycodone HCl (Oxycodone) 5 mg PO Q6H PRN PRN Reason: Pain Last Admin: 10/20/16 15:57 Dose: 5 mg Oxycodone HCl (Oxycontin) 10 mg PO Q12HR [facility] Last Admin: 10/21/16 09:28 Dose: 10 mg Paroxetine HCl (Paxil) 40 mg PO DAILY [facility] Last Admin: 10/21/16 09:32 Dose: 40 mg Breo Ellipta ( Fluticasone/Vilanterol 1 Each) 1 each INH DAILY [facility] Last Admin: 10/21/16 08:05 Dose: 1 each Bystolic (Nebevilol) (10mg) 1 each PO BEDTIME [facility] Last Admin: 10/20/16 20:50 Dose: Not Given Trulicity 0.75 Mg 1 each SUBCUT Tu@0900 [facility] Trulicity 0.75 Mg 1 each SUBCUT Tu@2100 [facility] Last Admin: 10/19/16 20:41 Dose: 1 each Pneumococcal Polyvalent Vaccine (Pneumovax 23) 0.5 ml SUBCUT .ONCE ONE Stop: 10/21/16 08:34 Last Admin: 10/21/16 10:19 Dose: 0.5 ml Polyethylene Glycol (Miralax) 17 gm PO DAILY [facility] Last Admin: 10/21/16 09:32 Dose: Not Given Potassium Chloride (Klor-Con M20) 40 meq PO ONETIME ONE Stop: 10/17/16 08:36 Last Admin: 10/17/16 09:47 Dose: 40 meq Potassium Chloride (Klor-Con M20) 40 meq PO ONETIME ONE Stop: 10/17/16 17:25 Last Admin: 10/17/16 17:35 Dose: 40 meq Prednisone (Prednisone) 20 mg PO DAILY [facility] Last Admin: 10/21/16 10:15 Dose: 20 mg Sodium Chloride (Saline Flush) 10 ml FLUSH ASDIRECTED PRN PRN Reason: Keep Vein Open Sodium Chloride (Saline Flush) 2.5 ml FLUSH ASDIRECTED PRN PRN Reason: Keep Vein Open Sodium Chloride (Saline Flush) 10 ml FLUSH ASDIRECTED PRN PRN Reason: Keep Vein Open Sodium Chloride (Saline Flush) 2.5 ml FLUSH ASDIRECTED PRN PRN Reason: Keep Vein Open Temazepam (Restoril) 15 mg PO BEDTIME [facility] Last Admin: 10/20/16 20:49 Dose: 15 mg *Q Meaningful Use (DIS) - VTE *Q VTE Criteria *Q: - Stroke *Q Stroke Criteria *Q: - AMI *Q AMI Criteria *Q:
[2016-10-21 13:05] VITALS: BP 159/89
[2016-10-22] MEDS ORDERED: Meningococcal Polysaccharide Conjugate Vaccine 4 MCG/0.5 ML SDV IM ONE (10:30)
== END 2016-10-21 14:00 | disposition home or self-care (01) | DRG 536 ==
LOC: MW.ED 21:35 → INTOOBSV 23:59 → OBSVTOIN 23:59 → MW.MS 23:59 → OBSVTOIN 10-18 09:46 → UNDODISOB 10-21 14:00
PROVIDERS: ADMIT Internal Medicine; ATTEND Internal Medicine
PROC: 3E0234Z Introduction of Serum, Toxoid and Vaccine into Muscle, Percutaneous Approach (ICD-10-PCS; principal; 2016-10-21)
DX: S32.9XXA Fracture of unspecified parts of lumbosacral spine and pelvis, initial encounter for closed fracture (principal); W19.XXXA Unspecified fall, initial encounter; S32.89XA Fracture of other parts of pelvis, initial encounter for closed fracture; Q89.01 Asplenia (congenital); W01.0XXA Fall on same level from slipping, tripping and stumbling without subsequent striking against object, initial encounter; Y93.01 Activity, walking, marching and hiking; Y92.019 Unspecified place in single-family (private) house as the place of occurrence of the external cause; M35.3 Polymyalgia rheumatica; E11.49 Type 2 diabetes mellitus with other diabetic neurological complication; I10 Essential (primary) hypertension; D72.829 Elevated white blood cell count, unspecified; G25.81 Restless legs syndrome; F32.9 Major depressive disorder, single episode, unspecified; E03.9 Hypothyroidism, unspecified; J45.909 Unspecified asthma, uncomplicated; M25.571 Pain in right ankle and joints of right foot; R10.9 Unspecified abdominal pain; Z86.73 Personal history of transient ischemic attack (TIA), and cerebral infarction without residual deficits; Z79.4 Long term (current) use of insulin; Z88.8 Allergy status to other drugs, medicaments and biological substances; Z23 Encounter for immunization; I69.354 Hemiplegia and hemiparesis following cerebral infarction affecting left non-dominant side; E11.9 Type 2 diabetes mellitus without complications
CPT/HCPCS: 36415 ×2; 71010; 72192; 73502; 73552; 80048; 80053; 81001; 82607; 82728; 82962 ×3; 85025 ×2; 85610; 93005; 96360; 96361; 96372; 99285; A9270 ×17; G0378 ×2; J1650 ×2; J1815 ×2; J7030; 51703; 73610-26-RT; 73610-RT; 74178; 74178-26; 76705; 76705-26; 80074; 81003; 82150; 82272; 83605; 83690; 85652; 86140; 87040; 88104; 90732; 94640; 97110-GP; 97163-GP; 97530-GP; 99283; G0009; J0696; J0744; J2930; J7040

== ENCOUNTER 2017-03-05 12:25 | Inpatient (IN) | payer MEDICARE, MEDICAID ==
--- NOTE | 2017-03-05 12:46 | EDM.PDOC ---
ED HPI GENERAL MEDICAL PROBLEM - General Chief Complaint: Respiratory Problem Stated Complaint: SOB Time Seen by Provider: 03/05/17 12:41 Source of Information: Reports: Patient History Limitations: Reports: No Limitations - History of Present Illness INITIAL COMMENTS - FREE TEXT/NARRATIVE: History of present illness: []Patient suddenly became short of breath at noon today. She denied any chest pain, syncope, sweating, fevers or chills. Review of systems: As per history of present illness and below otherwise all systems reviewed and negative. Past medical history: As per history of present illness and as reviewed below otherwise noncontributory. Surgical history: As per history of present illness and as reviewed below otherwise noncontributory. Social history: No reported history of drug or alcohol abuse. Family history: As per history of present illness and as reviewed below otherwise noncontributory. Physical exam: General: Well developed, well nourished in NAD HEENT: Atraumatic, normocephalic, pupils reactive, negative for conjunctival pallor or scleral icterus, mucous membranes moist, throat clear, neck supple, nontender, trachea midline. Lungs: Clear to auscultation, breath sounds equal bilaterally, chest nontender. Heart: irregular, negative for clicks, rubs, or JVD. Abdomen: Soft, nondistended, nontender. Negative for masses or hepatosplenomegaly. Negative for costovertebral tenderness. Pelvis: Stable nontender. Genitourinary: Deferred. Rectal: Deferred. Extremities: Atraumatic, diffuse pitting edema, legs are wrapped. Neurovascular unremarkable. Neuro: Awake, alert, oriented. Cranial nerves II through XII unremarkable. Cerebellum unremarkable. Motor and sensory unremarkable throughout. Exam nonfocal. Diagnostics: []EKG A. fib with rapid ventricular rate Therapeutics: []Diltiazem Impression: []A. fib with RVR, CHF, chronic edema Plan: []Admit for diuresis and rate control of A. fib. Definitive disposition and diagnosis as appropriate pending reevaluation and review of above. - Related Data Allergies Allergy/AdvReac Type Severity Reaction Status Date / Time kaylah inhibitor Allergy Airway Uncoded 10/16/16 21:59 Tightness Home Meds: Home Meds Ascorbic Acid [Vitamin C] 1,000 mg PO DAILY 02/18/15 [History] Levothyroxine [Synthroid] 50 mcg PO DAILY 02/18/15 [History] Multivit-Min/FA/Lycopene/Lut [Complete Multi 50+] 1 tab PO DAILY 02/18/15 [ History] Nebivolol HCl [Bystolic] 10 mg PO BEDTIME 02/18/15 [History] amLODIPine Besylate [Amlodipine Besylate] 10 mg PO DAILY 02/18/15 [History] atorvaSTATin [Lipitor] 40 mg PO DAILY 02/18/15 [History] metFORMIN [Glucophage] 500 mg PO BID 02/18/15 [History] Albuterol Sulfate [Proair Hfa] 2 puff IH QID PRN 10/16/16 [History] Dulaglutide [Trulicity] 0.75 mg SQ WEEKLY 10/16/16 [History] Fluticasone/Vilanterol [Breo Ellipta 100-25 MCG Inhalation Kit] 1 each IH DAILY 10/16/16 [History] Glimepiride [Amaryl] 2 mg PO WITHBREAKFAST 10/16/16 [History] Insulin Glarg,Human.Rec.Analog [LantUS Solostar] 22 units SUBCUT BEDTIME [History] Mirtazapine 30 mg PO BEDTIME 10/16/16 [History] Naproxen Sodium [Aleve] 220 mg PO BID PRN 10/16/16 [History] PARoxetine HCl [Paroxetine HCl] 40 mg PO DAILY 10/16/16 [History] cloNIDine 2.1 mg TD WEEKLY 10/16/16 [History] Albuterol/Ipratropium [DuoNeb 3.0-0.5 MG/3 ML] 3 ml NEB Q4HRRT PRN #10 neb 10/21 [Rx] Aspirin 325 mg PO DAILY #30 tablet 10/21/16 [Rx] Bisacodyl [Dulcolax] 10 mg RECTAL DAILY PRN #10 supp 10/21/16 [Rx] Insulin Aspart [NovoLOG] See Protocol SUBCUT ACBED #1 pen 10/21/16 [Rx] Polyethylene Glycol 3350 [MiraLAX] 17 gm PO DAILY PRN #10 packet 10/21/16 [Rx] Temazepam 15 mg PO BEDTIME #30 capsule 10/21/16 [Rx] predniSONE 20 mg PO DAILY #60 tablet 10/21/16 [Rx] Acetaminophen 500 mg PO Q4H PRN 03/05/17 [History] Docusate Sodium [Colace] 100 mg PO BID PRN 03/05/17 [History] Ferrous Sulfate 325 mg PO DAILY 03/05/17 [History] Furosemide [Lasix] 40 mg PO DAILY 03/05/17 [History] fentaNYL [Duragesic] 25 mcg TRDERM Q72H 03/05/17 [History] Past Medical History HEENT History: Reports: None Cardiovascular History: Reports: High Cholesterol, Hypertension Respiratory History: Reports: Asthma Genitourinary History: Reports: None [employer] History: Reports: None Musculoskeletal History: Reports: Osteoporosis Neurological History: Reports: CVA, Other (See Below) Other Neuro History: "3 strokes" Psychiatric History: Reports: None Endocrine/Metabolic History: Reports: Diabetes, Type II, Hypothyroidism, Osteoporosis Hematologic History: Reports: None Oncologic (Cancer) History: Reports: None Dermatologic History: Reports: None - Infectious Disease History Infectious Disease History: Reports: None - Past Surgical History Female Surgical History: Reports: None Social & Family History - Family History Family Medical History: Noncontributory - Tobacco Use Smoking Status *Q: Never Smoker Second Hand Smoke Exposure: Yes - Caffeine Use Caffeine Use: Reports: Coffee - Recreational Drug Use Recreational Drug Use: No Recreational Drug Type: Reports: Marijuana/Hashish Other Recreational Drug Type: Patient reports "smoking pot" today Recreational Drug Use Frequency: Daily ED ROS GENERAL - Review of Systems Review Of Systems: See Below (See history of present illness) ED EXAM, GENERAL - Physical Exam Exam: See Below (See history of present illness) Course - Vital Signs Last Recorded V/S: Last Vital Signs Temp 35.7 C 03/05/17 15:54 Pulse 108 H 03/05/17 15:54 Resp 18 03/05/17 15:54 BP 124/89 03/05/17 15:54 Pulse Ox 94 L 03/05/17 16:41 - Orders/Labs/Meds Orders: Active Orders 24 hr Category Date Time Status Chest 1V Frontal [CR] Stat Exams 03/05/17 12:44 Taken Saline Lock Insert [OM.PC] Stat Oth 03/05/17 12:44 Ordered Medication Orders Acetaminophen (Tylenol) 650 mg PO Q4H PRN PRN Reason: Pain (Mild 1-3)/fever Albuterol/Ipratropium (Duoneb 3.0-0.5 Mg/3 Ml) 3 ml NEB Q4HRRT PRN PRN Reason: Shortness Of Breath/wheezing Amlodipine Besylate (Norvasc) 10 mg PO DAILY [facility] Clonidine HCl (Catapres-Tts 3) 0.3 mg TOP Q7D [facility] Diltiazem HCl (Diltiazem) 10 mg IVPUSH Q8H PRN PRN Reason: Tachycardia Docusate Sodium (Colace) 100 mg PO BID PRN PRN Reason: Constipation Enoxaparin Sodium (Lovenox) 40 mg SUBCUT DAILY [facility] Fentanyl (Duragesic) 25 mcg TRDERM Q72H [facility] Furosemide (Lasix) 40 mg IVPUSH DAILY [facility] Last Admin: 03/05/17 16:18 Dose: 40 mg Glimepiride (Amaryl) 2 mg PO WITHBREAKFAST [facility] Levothyroxine Sodium (Synthroid) 50 mcg PO ACBRK [facility] Metformin HCl (Glucophage) 500 mg PO BID [facility] Morphine Sulfate (Morphine) 2 mg IVPUSH Q2H PRN PRN Reason: Pain (severe 7-10) Stop: 03/06/17 15:53 Ondansetron HCl (Zofran Odt) 4 mg PO Q6H PRN PRN Reason: nausea, able to take PO Oxycodone HCl (Oxycodone) 5 mg PO Q4H PRN PRN Reason: Pain (moderate 4-6) Paroxetine HCl (Paxil) 40 mg PO DAILY [facility] Dulaglutide [ (Trulicity] 0.75 Mg) 0.75 each SUBCUT Q7D [facility] Nebivolol 10 Mg 1 each PO BEDTIME [facility] Breo Ellipta 1 each INH DAILY [facility] Polyethylene Glycol (Miralax) 17 gm PO DAILY PRN PRN Reason: Constipation Prednisone (Prednisone) 20 mg PO DAILY [facility] Sodium Chloride (Saline Flush) 10 ml FLUSH ASDIRECTED PRN PRN Reason: Keep Vein Open Sodium Chloride (Saline Flush) 2.5 ml FLUSH ASDIRECTED PRN PRN Reason: Keep Vein Open Temazepam (Restoril) 15 mg PO BEDTIME PRN PRN Reason: Sleep Labs: Laboratory Tests 03/05/17 03/05/17 03/05/17 Range/Units 12:50 12:50 12:50 WBC 17.64 H (4.0-11.0) K/uL RBC 4.19 L (4.30-5.90) M/uL Hgb 12.0 (12.0-16.0) g/dL Hct 39.8 (36.0-46.0) % MCV 95.0 (80.0-98.0) fL MCH 28.6 (27.0-32.0) pg MCHC 30.2 L (31.0-37.0) g/dL RDW Std Deviation 59.7 (28.0-62.0) fl RDW Coeff of Leia 18 H (11.0-15.0) % Plt Count 424 H (150-400) K/uL MPV 10.60 (7.40-12.00) fL Neut % (Auto) 71.5 (48.0-80.0) % Lymph % (Auto) 19.4 (16.0-40.0) % [place] % (Auto) 7.5 (0.0-15.0) % Eos % (Auto) 1.4 (0.0-7.0) % Baso % (Auto) 0.2 (0.0-1.5) % Neut # (Auto) 12.6 H (1.4-5.7) K/uL Lymph # (Auto) 3.4 H (0.6-2.4) K/uL [place] # (Auto) 1.3 H (0.0-0.8) K/uL Eos # (Auto) 0.3 (0.0-0.7) K/uL Baso # (Auto) 0.0 (0.0-0.1) K/uL Nucleated RBC % 0.4 /100WBC Nucleated RBCs # 0 K/uL Sodium 148 H (136-146) mmol/L Potassium 3.5 (3.5-5.1) mmol/L Chloride 106 (98-110) mmol/L Carbon Dioxide 32 H (21-31) mmol/L BUN 45 H (6.0-23.0) mg/dL Creatinine 1.7 H (0.6-1.5) mg/dL Est Cr Clr Drug Dosing TNP Estimated GFR (MDRD) 30.9 ml/min Glucose 119 H (60-110) mg/dL Calcium 9.5 (8.8-10.8) mg/dL Total Bilirubin 0.3 (0.1-1.5) mg/dL AST 23 (5-40) IU/L ALT 67 H (8-54) IU/L Alkaline Phosphatase 112 (40-150) Troponin I < 0.10 (0.0-0.29) NG/ML B-Natriuretic Peptide (<100) PG/ML Total Protein 5.9 L (6.0-8.0) g/dL Albumin 3.3 L (3.5-5.0) g/dL Globulin 2.6 (2.0-3.5) g/dL Albumin/Globulin Ratio 1.3 (1.3-2.8) 03/05/17 Range/Units 12:50 WBC (4.0-11.0) K/uL RBC (4.30-5.90) M/uL Hgb (12.0-16.0) g/dL Hct (36.0-46.0) % MCV (80.0-98.0) fL MCH (27.0-32.0) pg MCHC (31.0-37.0) g/dL RDW Std Deviation (28.0-62.0) fl RDW Coeff of Leia (11.0-15.0) % Plt Count (150-400) K/uL MPV (7.40-12.00) fL Neut % (Auto) (48.0-80.0) % Lymph % (Auto) (16.0-40.0) % [place] % (Auto) (0.0-15.0) % Eos % (Auto) (0.0-7.0) % Baso % (Auto) (0.0-1.5) % Neut # (Auto) (1.4-5.7) K/uL Lymph # (Auto) (0.6-2.4) K/uL [place] # (Auto) (0.0-0.8) K/uL Eos # (Auto) (0.0-0.7) K/uL Baso # (Auto) (0.0-0.1) K/uL Nucleated RBC % /100WBC Nucleated RBCs # K/uL Sodium (136-146) mmol/L Potassium (3.5-5.1) mmol/L Chloride (98-110) mmol/L Carbon Dioxide (21-31) mmol/L BUN (6.0-23.0) mg/dL Creatinine (0.6-1.5) mg/dL Est Cr Clr Drug Dosing Estimated GFR (MDRD) ml/min Glucose (60-110) mg/dL Calcium (8.8-10.8) mg/dL Total Bilirubin (0.1-1.5) mg/dL AST (5-40) IU/L ALT (8-54) IU/L Alkaline Phosphatase (40-150) Troponin I (0.0-0.29) NG/ML B-Natriuretic Peptide 341 H (<100) PG/ML Total Protein (6.0-8.0) g/dL Albumin (3.5-5.0) g/dL Globulin (2.0-3.5) g/dL Albumin/Globulin Ratio (1.3-2.8) Meds: Medications Generic Name Dose Route Start Last Admin Trade Name Freq PRN Reason Stop Dose Admin Acetaminophen 650 mg 03/05/17 15:50 Tylenol PO Q4H PRN Pain (Mild 1-3)/fever Albuterol/Ipratropium 3 ml 03/05/17 15:50 Duoneb 3.0-0.5 Mg/3 Ml NEB Q4HRRT PRN Shortness Of Breath/wheezing Amlodipine Besylate 10 mg 03/06/17 09:00 Norvasc PO DAILY [facility] Clonidine HCl 0.3 mg 03/11/17 12:00 Catapres-Tts 3 TOP Q7D [facility] Diltiazem HCl 10 mg 03/05/17 17:05 Diltiazem IVPUSH Q8H PRN Tachycardia Docusate Sodium 100 mg 03/05/17 15:50 Colace PO BID PRN Constipation Enoxaparin Sodium 40 mg 03/06/17 09:00 Lovenox SUBCUT DAILY [facility] Fentanyl 25 mcg 03/06/17 04:30 Duragesic TRDERM Q72H [facility] Furosemide 40 mg 03/05/17 16:00 03/05/17 16:18 Lasix IVPUSH 40 mg DAILY [facility] Administration Glimepiride 2 mg 03/06/17 08:00 Amaryl PO WITHBREAKFAST [facility] Levothyroxine Sodium 50 mcg 03/06/17 07:30 Synthroid PO ACBRK [facility] Metformin HCl 500 mg 03/05/17 21:00 Glucophage PO BID [facility] Morphine Sulfate 2 mg 03/05/17 15:50 Morphine IVPUSH 03/06/17 15:53 Q2H PRN Pain (severe 7-10) Ondansetron HCl 4 mg 03/05/17 15:50 Zofran Odt PO Q6H PRN nausea, able to take PO Oxycodone HCl 5 mg 03/05/17 15:50 Oxycodone PO Q4H PRN Pain (moderate 4-6) Paroxetine HCl 40 mg 03/06/17 09:00 Paxil PO DAILY [facility] Dulaglutide [ 0.75 each 03/08/17 12:00 Trulicity] 0.75 Mg SUBCUT Q7D [facility] Nebivolol 10 Mg 1 each 03/05/17 21:00 PO BEDTIME [facility] Breo Ellipta 1 each 03/06/17 09:00 INH DAILY [facility] Polyethylene Glycol 17 gm 03/05/17 15:55 Miralax PO DAILY PRN Constipation Prednisone 20 mg 03/06/17 09:00 Prednisone PO DAILY [facility] Sodium Chloride 10 ml 03/05/17 15:50 Saline Flush FLUSH ASDIRECTED PRN Keep Vein Open Sodium Chloride 2.5 ml 03/05/17 15:50 Saline Flush FLUSH ASDIRECTED PRN Keep Vein Open Temazepam 15 mg 03/05/17 15:50 Restoril PO BEDTIME PRN Sleep Discontinued Medications Generic Name Dose Route Start Last Admin Trade Name Freq PRN Reason Stop Dose Admin Diltiazem HCl 10 mg 03/05/17 12:59 03/05/17 13:07 Diltiazem IVPUSH 03/05/17 13:00 10 mg ONETIME ONE Administration Diltiazem HCl 10 mg 03/05/17 14:32 03/05/17 15:21 Diltiazem IVPUSH 03/05/17 14:33 10 mg ONETIME ONE Administration Temazepam 15 mg 03/05/17 21:00 Restoril PO BEDTIME [facility] Departure - Departure Time of Disposition: 15:25 Disposition: Admitted As Inpatient 64 Condition: Good, Fair Clinical Impression: Atrial fibrillation with rapid ventricular response - Discharge Information - My Orders Last 24 Hours: My Active Orders 03/05/17 12:44 Chest 1V Frontal [CR] Stat Saline Lock Insert [OM.PC] Stat - Assessment/Plan Last 24 Hours: My Active Orders 03/05/17 12:44 Chest 1V Frontal [CR] Stat Saline Lock Insert [OM.PC] Stat
[2017-03-05] MEDS ORDERED: Diltiazem 25 MG/5 ML SDV IVPUSH ONE ×2 (12:59→14:32)
[2017-03-05 13:23] LABS: CHLORIDE,CL 106 mmol/L (98-110); SODIUM,NA 148 mmol/L (136-146)
--- NOTE | 2017-03-05 13:57 | PCM.SN ---
- Free Text/Narrative Note: called for IV start. Patient gives verbal consent. aseptic technique R) AC attemped with ultrasound guided 20 ga abbocath- unable to thread cath. Right Wrist 22 ga abbocath placement, easily flushes. Cath dressing and secured with tape. Rn notified.
[2017-03-05] MEDS ORDERED: Morphine 2 MG/ML Syringe IVPUSH PRN (15:50)
[2017-03-05] MEDS ORDERED: Acetaminophen 325 MG Tab PO PRN (15:50)
[2017-03-05] MEDS ORDERED: Sodium Chloride 0.9% 2.5 ML Syringe FLUSH PRN (15:50)
[2017-03-05] MEDS ORDERED: oxyCODONE 5 MG Tab PO PRN (15:50)
[2017-03-05] MEDS ORDERED: Temazepam 15 MG Cap PO PRN (15:50)
[2017-03-05] MEDS ORDERED: Albuterol/Ipratropium 3.0-0.5 MG/3 ML Neb Soln NEB PRN (15:50)
[2017-03-05] MEDS ORDERED: Docusate Sodium 100 MG Cap PO PRN (15:50)
[2017-03-05] MEDS ORDERED: Ondansetron 4 MG Tab.DIS PO PRN (15:50)
[2017-03-05] MEDS ORDERED: Sodium Chloride 0.9% 10 ML Syringe FLUSH PRN (15:50)
[2017-03-05] MEDS ORDERED: Polyethylene Glycol 3350 Powder 17 GM Packet PO PRN (15:55)
--- NOTE | 2017-03-05 16:07 | PCM.HP ---
H&P History of Present Illness - General Date of Service: 03/05/17 Admit Problem/Dx: Admission Diagnosis/Problem Admission Diagnosis/Problem Atrial fibrillation Source of Information: Patient History Limitations: Reports: No Limitations - History of Present Illness Initial Comments - Free Text/Narative: The patient is a 56-year-old lady who normally follows up with the clinic with a provider has presented to the emergency department via EMS. The patient is a resident at [facility] and about noontime today the patient thought to have her asthma was worsening and she had extreme difficulty in breathing. The patient felt that she was very short of breath and upon arrival in the emergency department the patient was noted to have an oxygen saturation of 92% on 3 L oxygen via nasal cannula. The patient says that she does not normally use oxygen. The patient was also noted to be in atrial fibrillation with rapid ventricular response rate of 120 bpm. The patient has been complaining of swelling all over her body and she feels like she is retaining fluid. Patient has denied any dizziness or lightheadedness. She's been extremely short of breath. The patient has denied any pain. She's had no nausea or vomiting. The patient's symptoms started rather suddenly today. The patient has multiple medical comorbidities to include depression, diabetes mellitus type 2, hypertension, hypothyroidism, leukocytosis, osteoporosis, asthma and patient last saw her primary care physician in October 2016. Onset of Symptoms: Reports: Sudden Duration of Symptoms: Reports: Hour(s):, Getting Worse Location: Reports: Generalized Severity: Moderate Improves with: Reports: Other (Oxygen) Worsens with: Reports: None Context: Reports: Sick Contact Associated Symptoms: Reports: Shortness of Breath - Related Data Allergies/Adverse Reactions: Allergies Allergy/AdvReac Type Severity Reaction Status Date / Time kaylah inhibitor Allergy Airway Uncoded 10/16/16 21:59 Tightness Home Medications: Home Meds Ascorbic Acid [Vitamin C] 1,000 mg PO DAILY 02/18/15 [History] Levothyroxine [Synthroid] 50 mcg PO DAILY 02/18/15 [History] Multivit-Min/FA/Lycopene/Lut [Complete Multi 50+] 1 tab PO DAILY 02/18/15 [ History] Nebivolol HCl [Bystolic] 10 mg PO BEDTIME 02/18/15 [History] amLODIPine Besylate [Amlodipine Besylate] 10 mg PO DAILY 02/18/15 [History] atorvaSTATin [Lipitor] 40 mg PO DAILY 02/18/15 [History] metFORMIN [Glucophage] 500 mg PO BID 02/18/15 [History] Albuterol Sulfate [Proair Hfa] 2 puff IH QID PRN 10/16/16 [History] Dulaglutide [Trulicity] 0.75 mg SQ WEEKLY 10/16/16 [History] Fluticasone/Vilanterol [Breo Ellipta 100-25 MCG Inhalation Kit] 1 each IH DAILY 10/16/16 [History] Glimepiride [Amaryl] 2 mg PO WITHBREAKFAST 10/16/16 [History] Insulin Glarg,Human.Rec.Analog [LantUS Solostar] 22 units SUBCUT BEDTIME [History] Mirtazapine 30 mg PO BEDTIME 10/16/16 [History] Naproxen Sodium [Aleve] 220 mg PO BID PRN 10/16/16 [History] PARoxetine HCl [Paroxetine HCl] 40 mg PO DAILY 10/16/16 [History] cloNIDine 2.1 mg TD WEEKLY 10/16/16 [History] Albuterol/Ipratropium [DuoNeb 3.0-0.5 MG/3 ML] 3 ml NEB Q4HRRT PRN #10 neb 10/21 [Rx] Aspirin 325 mg PO DAILY #30 tablet 10/21/16 [Rx] Bisacodyl [Dulcolax] 10 mg RECTAL DAILY PRN #10 supp 10/21/16 [Rx] Insulin Aspart [NovoLOG] See Protocol SUBCUT ACBED #1 pen 10/21/16 [Rx] Polyethylene Glycol 3350 [MiraLAX] 17 gm PO DAILY PRN #10 packet 10/21/16 [Rx] Temazepam 15 mg PO BEDTIME #30 capsule 10/21/16 [Rx] predniSONE 20 mg PO DAILY #60 tablet 10/21/16 [Rx] Acetaminophen 500 mg PO Q4H PRN 03/05/17 [History] Docusate Sodium [Colace] 100 mg PO BID PRN 03/05/17 [History] Ferrous Sulfate 325 mg PO DAILY 03/05/17 [History] Furosemide [Lasix] 40 mg PO DAILY 03/05/17 [History] fentaNYL [Duragesic] 25 mcg TRDERM Q72H 03/05/17 [History] Past Medical History HEENT History: Reports: None Cardiovascular History: Reports: High Cholesterol, Hypertension Respiratory History: Reports: Asthma Gastrointestinal History: Reports: None Genitourinary History: Reports: None [employer] History: Reports: None Musculoskeletal History: Reports: Osteoporosis Neurological History: Reports: CVA, Other (See Below) Other Neuro History: "3 strokes" Psychiatric History: Reports: None Endocrine/Metabolic History: Reports: Diabetes, Type II, Hypothyroidism, Osteoporosis Hematologic History: Reports: None Oncologic (Cancer) History: Reports: None Dermatologic History: Reports: None - Infectious Disease History Infectious Disease History: Reports: None - Past Surgical History Female Surgical History: Reports: None Social & Family History - Family History Family Medical History: Noncontributory - Tobacco Use Smoking Status *Q: Never Smoker Second Hand Smoke Exposure: Yes - Caffeine Use Caffeine Use: Reports: Coffee - Recreational Drug Use Recreational Drug Use: No Recreational Drug Type: Reports: Marijuana/Hashish Other Recreational Drug Type: Patient reports "smoking pot" today Recreational Drug Use Frequency: Daily - Living Situation & Occupation Living situation: Reports: Extended Care Facility H&P Review of Systems - Review of Systems: Review Of Systems: See Below General: Reports: Weakness, Fatigue HEENT: Reports: No Symptoms Pulmonary: Reports: Shortness of Breath, Wheezing, Pleuritic Chest Pain Cardiovascular: Reports: Edema (Anasarca) Gastrointestinal: Reports: No Symptoms Genitourinary: Reports: No Symptoms Musculoskeletal: Reports: Back Pain Skin: Reports: Rash, Wound Psychiatric: Reports: No Symptoms Neurological: Reports: No Symptoms Hematologic/Lymphatic: Reports: Easy Bruising Immunologic: Reports: No Symptoms Exam - Exam Exam: See Below - Vital Signs Vital Signs: Last Vital Signs Temp 35.7 C 03/05/17 15:54 Pulse 108 H 03/05/17 15:54 Resp 18 03/05/17 15:54 BP 124/89 03/05/17 15:54 Pulse Ox 94 L 03/05/17 15:54 Weight: 81.647 kg - Exam Quality Assessment: Supplemental Oxygen General: Alert, Oriented, Mild Distress HEENT: Conjunctiva Clear, EACs Clear, Nares Patent. No: Mucosa Moist & [place] Neck: Supple, Trachea Midline Lungs: Rales Cardiovascular: Regular Rate, Irregular Rhythm, Other (Anasarca) GI/Abdominal Exam: Normal Bowel Sounds, Soft, Other (Obese) Back Exam: Decreased Range of Motion Extremities: Pedal Edema, Arm Pain (Edema bilateral arms) Skin: Warm, Wound (Stasis ulcers bilateral lower extremities) Neurological: Cranial Nerves Intact Neuro Extensive - Mental Status: Alert, Oriented x3 Neuro Extensive - Motor, Sensory, Reflexes: CN II-XII Intact. No: Normal Gait Psychiatric: Alert, Normal Affect - Patient Data Result Diagrams: 03/05/17 12:50 03/05/17 12:50 *Q Meaningful Use (ADM) - VTE *Q VTE Criteria *Q: VTE Mechanical Contraindications *Q: At Risk for Falls - VTE Risk Assess *Q Each Risk Factor Represents 1 Point: Age 41 - 59 years, Swollen Legs, Current Total Score 1 Point Risk Factors: 2 Each Risk Factor Represents 2 Points: Morbid Obesity (BMI Greater than 40) Total Score 2 Point Risk Factors: 2 - Stroke *Q Stroke Criteria *Q: - AMI *Q AMI Criteria *Q: - Problem List (1) Atrial fibrillation with RVR SNOMED Code(s): 205206997154247 ICD Code: I48.91 - UNSPECIFIED ATRIAL FIBRILLATION Status: Acute Priority : High Current Visit: Yes Problem Details: Patient rate controlled with diltiazem in the emergency department (2) Anasarca SNOMED Code(s): 632573660, 106101087 ICD Code: R60.1 - GENERALIZED EDEMA Status: Chronic Priority: High Current Visit: Yes Problem Details: Saline lock, IV Lasix 40 mg daily (3) Chronic kidney disease, stage II (mild) SNOMED Code(s): 713112869 ICD Code: N18.2 - CHRONIC KIDNEY DISEASE, STAGE 2 (MILD) Status: Chronic Priority: Medium Current Visit: Yes (4) Hypoxia SNOMED Code(s): 409724956, 513621814 ICD Code: R09.02 - HYPOXEMIA Status: Chronic Priority: High Current Visit: Yes (5) Morbid obesity SNOMED Code(s): 992628461, 13505678641060 ICD Code: E66.01 - MORBID (SEVERE) OBESITY DUE TO EXCESS CALORIES Status: Chronic Priority: High Current Visit: Yes (6) DM type 2 (diabetes mellitus, type 2) SNOMED Code(s): 37487498 ICD Code: E11.9 - TYPE 2 DIABETES MELLITUS WITHOUT COMPLICATIONS Status: Chronic Priority: High Current Visit: Yes Qualifiers: Diabetes mellitus complication status: with neurologic complications Diabetes mellitus complication detail: with other neurological complication Diabetes mellitus retirement insulin use: with retirement use Qualified Code(s) : E11.49 - Type 2 diabetes mellitus with other diabetic neurological complication; Z79.4 - long-term (current) use of insulin Problem List Initiated/Reviewed/Updated: Yes Orders Last 24hrs: Active Orders 24 hr Category Date Time Status Patient Status [ADT] Routine ADT 03/05/17 15:50 Active Bedrest Bedside Commode [RC] ASDIRECTED Care 03/05/17 15:50 Active Blood Glucose Check, Bedside [RC] WITHMEALSANDBED Care 03/05/17 15:50 Active Oxygen Therapy [RC] PRN Care 03/05/17 15:50 Active Pulse Oximetry [RC] CONTINUOUS Care 03/05/17 15:52 Active RT Aerosol Therapy [RC] ASDIRECTED Care 03/05/17 15:54 Active Up With Assistance [RC] ASDIRECTED Care 03/05/17 15:50 Active VTE/DVT Education [RC] PER UNIT ROUTINE Care 03/05/17 15:50 Active Vital Signs [RC] Q4H Care 03/05/17 15:50 Active [employer] Diet [DIET] Diet 03/05/17 Dinner Active CBC WITH AUTO DIFF [HEME] AM Lab 03/06/17 05:11 Ordered COMPREHENSIVE METABOLIC PN,CMP [CHEM] AM Lab 03/06/17 05:11 Ordered MAGNESIUM [CHEM] AM Lab 03/06/17 05:11 Ordered PHOSPHORUS [CHEM] AM Lab 03/06/17 05:11 Ordered Acetaminophen [Tylenol] Med 03/05/17 15:50 Ordered 650 mg PO Q4H PRN Albuterol/Ipratropium [DuoNeb 3.0-0.5 MG/3 ML] Med 03/05/17 15:50 Ordered 3 ml NEB Q4HRRT PRN Docusate Sodium [Colace] Med 03/05/17 15:50 Ordered 100 mg PO BID PRN Dulaglutide [Trulicity] Med 03/05/17 16:00 Ordered 0.75 mg SQ WEEKLY Enoxaparin [Lovenox] Med 03/06/17 09:00 Ordered 40 mg SUBCUT DAILY Fluticasone/Vilanterol Med 03/06/17 09:00 Ordered 1 each IH DAILY Furosemide [Lasix] Med 03/05/17 16:00 Ordered 40 mg IVPUSH DAILY Glimepiride Med 03/06/17 08:00 Ordered 2 mg PO WITHBREAKFAST Levothyroxine [Synthroid] Med 03/06/17 09:00 Ordered 50 mcg PO DAILY Morphine Med 03/05/17 15:50 Ordered 2 mg IVPUSH Q2H PRN Nebivolol Med 03/05/17 21:00 Ordered 10 mg PO BEDTIME Ondansetron [Zofran ODT] Med 03/05/17 15:50 Ordered 4 mg PO Q6H PRN PARoxetine HCl [Paroxetine HCl] Med 03/06/17 09:00 Ordered 40 mg PO DAILY Polyethylene Glycol 3350 [MiraLAX] Med 03/05/17 15:55 Ordered 17 gm PO DAILY PRN Sodium Chloride 0.9% [Saline Flush] Med 03/05/17 15:50 Ordered 10 ml FLUSH ASDIRECTED PRN Sodium Chloride 0.9% [Saline Flush] Med 03/05/17 15:50 Ordered 2.5 ml FLUSH ASDIRECTED PRN Temazepam [Restoril] Med 03/05/17 21:00 Ordered 15 mg PO BEDTIME Temazepam [Restoril] Med 03/05/17 15:50 Ordered 15 mg PO BEDTIME PRN amLODIPine Med 03/06/17 09:00 Ordered 10 mg PO DAILY cloNIDine [cloNIDine] Med 03/05/17 16:00 Ordered 2.1 mg TD WEEKLY fentaNYL [Duragesic] Med 03/05/17 16:00 Ordered 25 mcg TRDERM Q72H metFORMIN [Glucophage] Med 03/05/17 21:00 Ordered 500 mg PO BID oxyCODONE Med 03/05/17 15:50 Ordered 5 mg PO Q4H PRN predniSONE Med 03/06/17 09:00 Ordered 20 mg PO DAILY Saline Lock Insert [OM.PC] Routine Oth 03/05/17 15:50 Ordered Resuscitation Status Routine Resus Stat 03/05/17 15:50 Ordered Medication Orders Acetaminophen (Tylenol) 650 mg PO Q4H PRN PRN Reason: Pain (Mild 1-3)/fever Albuterol/Ipratropium (Duoneb 3.0-0.5 Mg/3 Ml) 3 ml NEB Q4HRRT PRN PRN Reason: Shortness Of Breath/wheezing Docusate Sodium (Colace) 100 mg PO BID PRN PRN Reason: Constipation Enoxaparin Sodium (Lovenox) 40 mg SUBCUT DAILY [facility] Furosemide (Lasix) 40 mg IVPUSH DAILY [facility] Glimepiride (Glimepiride) 2 mg PO WITHBREAKFAST [facility] Levothyroxine Sodium (Synthroid) 50 mcg PO DAILY [facility] Metformin HCl (Glucophage) 500 mg PO BID [facility] Morphine Sulfate (Morphine) 2 mg IVPUSH Q2H PRN PRN Reason: Pain (severe 7-10) Stop: 03/06/17 15:53 Non-Formulary Medication (Dulaglutide [Trulicity]) 0.75 mg SQ WEEKLY [facility] Non-Formulary Medication (Clonidine [Clonidine]) 2.1 mg TD WEEKLY [facility] Non-Formulary Medication (Fentanyl [Duragesic]) 25 mcg TRDERM Q72H [facility] Non-Formulary Medication (Nebivolol) 10 mg PO BEDTIME [facility] Non-Formulary Medication (Fluticasone/Vilanterol) 1 each IH DAILY [facility] Non-Formulary Medication (Paroxetine Hcl [Paroxetine Hcl]) 40 mg PO DAILY [facility] Non-Formulary Medication (Amlodipine) 10 mg PO DAILY [facility] Ondansetron HCl (Zofran Odt) 4 mg PO Q6H PRN PRN Reason: nausea, able to take PO Oxycodone HCl (Oxycodone) 5 mg PO Q4H PRN PRN Reason: Pain (moderate 4-6) Polyethylene Glycol (Miralax) 17 gm PO DAILY PRN PRN Reason: Constipation Prednisone (Prednisone) 20 mg PO DAILY [facility] Sodium Chloride (Saline Flush) 10 ml FLUSH ASDIRECTED PRN PRN Reason: Keep Vein Open Sodium Chloride (Saline Flush) 2.5 ml FLUSH ASDIRECTED PRN PRN Reason: Keep Vein Open Temazepam (Restoril) 15 mg PO BEDTIME PRN PRN Reason: Sleep Temazepam (Restoril) 15 mg PO BEDTIME [facility] Assessment/Plan Comment:: The patient is a chronically ill 56-year-old lady who will be observation status secondary to her atrial fibrillation. Patient also has been placed in saline lock and she is been given IV Lasix help to diurese the patient. The patient is also a type II diabetic and her last hemoglobin A1c was 7.2%. The patient is currently insulin-dependent as well as using additional medications. The patient will have her blood sugars checked 3 times a day and at bedtime and she'll be kept on medium dose sliding scale insulin. She had been previously on 22 units of insulin at bedtime. The patient is also morbidly obese and this is likely contributing to the patient's overall condition. The patient will be maintained on oxygen secondary to her hypoxia. There is no specific evidence of asthma however, the patient will also have albuterol Atrovent SVNs every 4 hours per respiratory therapy. After general improvement with the patient in terms of her anasarca she will be appropriate for discharge back to [facility] in 1-2 days. I've also ordered laboratory studies for the morning. The patient does have a history of chronic leukocytosis and at 17,000 this is normal for her.
[2017-03-05] MEDS: Furosemide 40 MG/4 ML VIAL IVPUSH SCH (16:18)
[2017-03-05] MEDS ORDERED: Diltiazem 25 MG/5 ML SDV IVPUSH PRN (17:05)
[2017-03-05] MEDS ORDERED: Temazepam 15 MG Cap PO SCH (21:00)
[2017-03-05] MEDS: NEBIVOLOL 10 MG PO SCH (21:51)
[2017-03-06 04:39] LABS: CHLORIDE,CL 106 mmol/L (98-110); SODIUM,NA 150 mmol/L (136-146)
[2017-03-06] MEDS: fentaNYL 25 MCG/HR Transdermal Patch TRDERM SCH (04:43)
[2017-03-06] MEDS: Diltiazem 25 MG/5 ML SDV IVPUSH PRN ×4 (04:44→21:02)
[2017-03-06] MEDS: Levothyroxine 50 MCG Tab PO SCH (06:46)
[2017-03-06] MEDS: Insulin Aspart 100 Units/ML 3 ML Pen SUBCUT SCH ×3 (07:10→16:45)
[2017-03-06] MEDS: Enoxaparin 40 MG/0.4 ML Syringe SUBCUT SCH (08:19)
[2017-03-06] MEDS: Glimepiride 2 MG Tab PO SCH (08:19)
[2017-03-06] MEDS: amLODIPine 5 MG Tab PO SCH (08:19)
[2017-03-06] MEDS: predniSONE 10 MG Tab PO SCH (08:19)
[2017-03-06] MEDS: Furosemide 40 MG/4 ML VIAL IVPUSH SCH (08:19)
[2017-03-06] MEDS: PARoxetine 20 MG Tab PO SCH (08:20)
[2017-03-06] MEDS: metFORMIN 500 MG Tab PO SCH ×2 (08:35→21:00)
[2017-03-06] MEDS: BREO ELLIPTA INH SCH (08:44)
[2017-03-06] MEDS ORDERED: Diltiazem 180 MG Cap.CD PO SCH (09:00)
--- NOTE | 2017-03-06 10:17 | PCM.PN ---
- General Info Date of Service: 03/06/17 Admission Dx/Problem (Free Text): Admission Diagnosis/Problem Admission Diagnosis/Problem Atrial fibrillation Subjective Update: The patient is doing better today. Patient says she is breathing better. Urinary catheter was placed secondary to diuresis. Functional Status: Reports: Pain Controlled - Review of Systems General: Reports: Weakness, Fatigue HEENT: Reports: No Symptoms Pulmonary: Reports: Shortness of Breath Cardiovascular: Reports: No Symptoms Gastrointestinal: Reports: No Symptoms Genitourinary: Reports: No Symptoms Musculoskeletal: Reports: No Symptoms Skin: Reports: No Symptoms Neurological: Reports: No Symptoms Psychiatric: Reports: No Symptoms - Patient Data Vitals - most recent: Last Vital Signs Temp 35.8 C 03/06/17 08:00 Pulse 98 03/06/17 08:00 Resp 18 03/06/17 08:00 BP 130/99 H 03/06/17 08:19 Pulse Ox 93 L 03/06/17 08:00 Weight - most recent: 81.647 kg I&O - last 24 hours: Intake & Output 03/05/17 03/06/17 03/06/17 22:59 06:59 14:59 Intake Total 450 Output Total 1600 Balance -1150 Lab Results last 24 hrs: Laboratory Results - last 24 hr 03/05/17 03/05/17 03/05/17 Range/Units 18:57 21:10 22:11 WBC (4.0-11.0) K/uL RBC (4.30-5.90) M/uL Hgb (12.0-16.0) g/dL Hct (36.0-46.0) % MCV (80.0-98.0) fL MCH (27.0-32.0) pg MCHC (31.0-37.0) g/dL RDW Std Deviation (28.0-62.0) fl RDW Coeff of Leia (11.0-15.0) % Plt Count (150-400) K/uL MPV (7.40-12.00) fL Neut % (Auto) (48.0-80.0) % Lymph % (Auto) (16.0-40.0) % [place] % (Auto) (0.0-15.0) % Eos % (Auto) (0.0-7.0) % Baso % (Auto) (0.0-1.5) % Neut # (Auto) (1.4-5.7) K/uL Lymph # (Auto) (0.6-2.4) K/uL Th[place]morton # (Auto) (0.0-0.8) K/uL Eos # (Auto) (0.0-0.7) K/uL Baso # (Auto) (0.0-0.1) K/uL Nucleated RBC % /100WBC Nucleated RBCs # K/uL Sodium (136-146) mmol/L Potassium (3.5-5.1) mmol/L Chloride (98-110) mmol/L Carbon Dioxide (21-31) mmol/L BUN (6.0-23.0) mg/dL Creatinine (0.6-1.5) mg/dL Est Cr Clr Drug Dosing Estimated GFR (MDRD) ml/min Glucose (60-110) mg/dL POC Glucose 95 132 H (60-110) mg/dL Calcium (8.8-10.8) mg/dL Phosphorus (2.4-4.7) mg/dL Magnesium (1.5-2.3) mEq/L Total Bilirubin (0.1-1.5) mg/dL AST (5-40) IU/L ALT (8-54) IU/L Alkaline Phosphatase (40-150) Troponin I < 0.10 (0.0-0.29) NG/ML Total Protein (6.0-8.0) g/dL Albumin (3.5-5.0) g/dL Globulin (2.0-3.5) g/dL Albumin/Globulin Ratio (1.3-2.8) 03/06/17 03/06/17 03/06/17 Range/Units 04:10 04:10 04:10 WBC 14.84 H (4.0-11.0) K/uL RBC 4.38 (4.30-5.90) M/uL Hgb 12.4 (12.0-16.0) g/dL Hct 41.3 (36.0-46.0) % MCV 94.3 (80.0-98.0) fL MCH 28.3 (27.0-32.0) pg MCHC 30.0 L (31.0-37.0) g/dL RDW Std Deviation 59.4 (28.0-62.0) fl RDW Coeff of Leia 17 H (11.0-15.0) % Plt Count 418 H (150-400) K/uL MPV 10.50 (7.40-12.00) fL Neut % (Auto) 72.8 (48.0-80.0) % Lymph % (Auto) 18.1 (16.0-40.0) % [place] % (Auto) 6.9 (0.0-15.0) % Eos % (Auto) 1.9 (0.0-7.0) % Baso % (Auto) 0.3 (0.0-1.5) % Neut # (Auto) 10.8 H (1.4-5.7) K/uL Lymph # (Auto) 2.7 H (0.6-2.4) K/uL [place] # (Auto) 1.0 H (0.0-0.8) K/uL Eos # (Auto) 0.3 (0.0-0.7) K/uL Baso # (Auto) 0.0 (0.0-0.1) K/uL Nucleated RBC % 0.4 /100WBC Nucleated RBCs # 0 K/uL Sodium 150 H (136-146) mmol/L Potassium 3.7 (3.5-5.1) mmol/L Chloride 106 (98-110) mmol/L Carbon Dioxide 34 H (21-31) mmol/L BUN 38 H (6.0-23.0) mg/dL Creatinine 1.3 (0.6-1.5) mg/dL Est Cr Clr Drug Dosing TNP Estimated GFR (MDRD) 42.1 ml/min Glucose 108 (60-110) mg/dL POC Glucose (60-110) mg/dL Calcium 8.9 (8.8-10.8) mg/dL Phosphorus 3.9 (2.4-4.7) mg/dL Magnesium 1.3 L (1.5-2.3) mEq/L Total Bilirubin 0.4 (0.1-1.5) mg/dL AST 18 (5-40) IU/L ALT 60 H (8-54) IU/L Alkaline Phosphatase 115 (40-150) Troponin I < 0.10 (0.0-0.29) NG/ML Total Protein 5.9 L (6.0-8.0) g/dL Albumin 3.2 L (3.5-5.0) g/dL Globulin 2.7 (2.0-3.5) g/dL Albumin/Globulin Ratio 1.2 L (1.3-2.8) 03/06/17 Range/Units 06:14 WBC (4.0-11.0) K/uL RBC (4.30-5.90) M/uL Hgb (12.0-16.0) g/dL Hct (36.0-46.0) % MCV (80.0-98.0) fL MCH (27.0-32.0) pg MCHC (31.0-37.0) g/dL RDW Std Deviation (28.0-62.0) fl RDW Coeff of Leia (11.0-15.0) % Plt Count (150-400) K/uL MPV (7.40-12.00) fL Neut % (Auto) (48.0-80.0) % Lymph % (Auto) (16.0-40.0) % [place] % (Auto) (0.0-15.0) % Eos % (Auto) (0.0-7.0) % Baso % (Auto) (0.0-1.5) % Neut # (Auto) (1.4-5.7) K/uL Lymph # (Auto) (0.6-2.4) K/uL [place] # (Auto) (0.0-0.8) K/uL Eos # (Auto) (0.0-0.7) K/uL Baso # (Auto) (0.0-0.1) K/uL Nucleated RBC % /100WBC Nucleated RBCs # K/uL Sodium (136-146) mmol/L Potassium (3.5-5.1) mmol/L Chloride (98-110) mmol/L Carbon Dioxide (21-31) mmol/L BUN (6.0-23.0) mg/dL Creatinine (0.6-1.5) mg/dL Est Cr Clr Drug Dosing Estimated GFR (MDRD) ml/min Glucose (60-110) mg/dL POC Glucose 123 H (60-110) mg/dL Calcium (8.8-10.8) mg/dL Phosphorus (2.4-4.7) mg/dL Magnesium (1.5-2.3) mEq/L Total Bilirubin (0.1-1.5) mg/dL AST (5-40) IU/L ALT (8-54) IU/L Alkaline Phosphatase (40-150) Troponin I (0.0-0.29) NG/ML Total Protein (6.0-8.0) g/dL Albumin (3.5-5.0) g/dL Globulin (2.0-3.5) g/dL Albumin/Globulin Ratio (1.3-2.8) Med Orders - Current: Current Medications Acetaminophen (Tylenol) 650 mg PO Q4H PRN PRN Reason: Pain (Mild 1-3)/fever Albuterol/Ipratropium (Duoneb 3.0-0.5 Mg/3 Ml) 3 ml NEB Q4HRRT PRN PRN Reason: Shortness Of Breath/wheezing Amlodipine Besylate (Norvasc) 10 mg PO DAILY [facility] Last Admin: 03/06/17 08:19 Dose: 10 mg Clonidine HCl (Catapres-Tts 3) 0.3 mg TOP Q7D ADRIAN Diltiazem HCl (Diltiazem) 10 mg IVPUSH Q4H PRN PRN Reason: [id number] Last Admin: 03/06/17 09:08 Dose: 10 mg Diltiazem HCl (Cardizem Cd) 180 mg PO DAILY [facility] Last Admin: 03/06/17 08:20 Dose: 180 mg Docusate Sodium (Colace) 100 mg PO BID PRN PRN Reason: Constipation Enoxaparin Sodium (Lovenox) 40 mg SUBCUT DAILY [facility] Last Admin: 03/06/17 08:19 Dose: 40 mg Fentanyl (Duragesic) 25 mcg TRDERM Q72H [facility] Last Admin: 03/06/17 04:43 Dose: 25 mcg Furosemide (Lasix) 40 mg IVPUSH DAILY [facility] Last Admin: 03/06/17 08:19 Dose: 40 mg Glimepiride (Amaryl) 2 mg PO WITHBREAKFAST [facility] Last Admin: 03/06/17 08:19 Dose: 2 mg Insulin Aspart (Novolog) 0 unit SUBCUT TIDAC [facility] PRN Reason: Protocol Last Admin: 03/06/17 07:10 Dose: Not Given Levothyroxine Sodium (Synthroid) 50 mcg PO ACBRK [facility] Last Admin: 03/06/17 06:46 Dose: 50 mcg Metformin HCl (Glucophage) 500 mg PO BID [facility] Last Admin: 03/06/17 08:35 Dose: 500 mg Morphine Sulfate (Morphine) 2 mg IVPUSH Q2H PRN PRN Reason: Pain (severe 7-10) Stop: 03/06/17 15:53 Ondansetron HCl (Zofran Odt) 4 mg PO Q6H PRN PRN Reason: nausea, able to take PO Oxycodone HCl (Oxycodone) 5 mg PO Q4H PRN PRN Reason: Pain (moderate 4-6) Paroxetine HCl (Paxil) 40 mg PO DAILY [facility] Last Admin: 03/06/17 08:20 Dose: 40 mg Dulaglutide [ (Trulicity] 0.75 Mg) 0.75 each SUBCUT Q7D [facility] Nebivolol 10 Mg 1 each PO BEDTIME [facility] Last Admin: 03/05/17 21:51 Dose: 1 each Breo Ellipta 1 each INH DAILY [facility] Last Admin: 03/06/17 08:44 Dose: 1 each Polyethylene Glycol (Miralax) 17 gm PO DAILY PRN PRN Reason: Constipation Prednisone (Prednisone) 20 mg PO DAILY [facility] Last Admin: 03/06/17 08:19 Dose: 20 mg Sodium Chloride (Saline Flush) 10 ml FLUSH ASDIRECTED PRN PRN Reason: Keep Vein Open Sodium Chloride (Saline Flush) 2.5 ml FLUSH ASDIRECTED PRN PRN Reason: Keep Vein Open Temazepam (Restoril) 15 mg PO BEDTIME PRN PRN Reason: Sleep Discontinued Medications Diltiazem HCl (Diltiazem) 10 mg IVPUSH ONETIME ONE Stop: 03/05/17 13:00 Last Admin: 03/05/17 13:07 Dose: 10 mg Diltiazem HCl (Diltiazem) 10 mg IVPUSH ONETIME ONE Stop: 03/05/17 14:33 Last Admin: 03/05/17 15:21 Dose: 10 mg Diltiazem HCl (Diltiazem) 10 mg IVPUSH Q8H PRN PRN Reason: Tachycardia Last Admin: 03/05/17 20:14 Dose: 10 mg Temazepam (Restoril) 15 mg PO BEDTIME ADRIAN - Exam Quality Assessment: supplemental oxygen, urine catheter General: alert, oriented, cooperative HEENT: Pupils equal, Pupils reactive, EOMI Neck: supple, trachea midline Lungs: Clear to Auscultation, Normal Respiratory Effort Cardiovascular: Irregular Rhythm GI/Abdominal Exam: Normal Bowel Sounds, Soft Back Exam: Decreased Range of Motion Extremities: Pedal Edema Skin: warm, dry Neurological: no new focal deficit Psy/Mental Status: alert, normal affect - Problem List & Annotations (1) Atrial fibrillation with RVR SNOMED Code(s): 994745760555317 Code(s): I48.91 - UNSPECIFIED ATRIAL FIBRILLATION Status: Acute Priority : High Current Visit: Yes Annotation/Comment:: Patient rate controlled with diltiazem in the emergency department (2) Anasarca SNOMED Code(s): 917675052, 083599922 Code(s): R60.1 - GENERALIZED EDEMA Status: Chronic Priority: High Current Visit: Yes Annotation/Comment:: Saline lock, IV Lasix 40 mg daily (3) Chronic kidney disease, stage II (mild) SNOMED Code(s): 224248766 Code(s): N18.2 - CHRONIC KIDNEY DISEASE, STAGE 2 (MILD) Status: Chronic Priority: Medium Current Visit: Yes (4) Hypoxia SNOMED Code(s): 458965953, 710633298 Code(s): R09.02 - HYPOXEMIA Status: Chronic Priority: High Current Visit: Yes (5) Morbid obesity SNOMED Code(s): 707227825, 60044675824373 Code(s): E66.01 - MORBID (SEVERE) OBESITY DUE TO EXCESS CALORIES Status: Chronic Priority: High Current Visit: Yes (6) DM type 2 (diabetes mellitus, type 2) SNOMED Code(s): 16867262 Code(s): E11.9 - TYPE 2 DIABETES MELLITUS WITHOUT COMPLICATIONS Status: Chronic Priority: High Current Visit: Yes Qualifiers: Diabetes mellitus complication status: with neurologic complications Diabetes mellitus complication detail: with other neurological complication Diabetes mellitus senior care insulin use: with senior care use Qualified Code(s) : E11.49 - Type 2 diabetes mellitus with other diabetic neurological complication; Z79.4 - care home (current) use of insulin (7) Hypernatremia SNOMED Code(s): 94120513 Code(s): E87.0 - HYPEROSMOLALITY AND HYPERNATREMIA Status: Acute Current Visit: Yes - Problem List Review Problem List Initiated/Reviewed/Updated: Yes - My Orders Last 24 Hours: My Active Orders 03/05/17 15:00 Telemetry Monitoring [Cardiac Monitoring] [RC] Q8H 03/05/17 15:50 Patient Status [ADT] Routine Bedrest Bedside Commode [RC] ASDIRECTED Blood Glucose Check, Bedside [RC] WITHMEALSANDBED Oxygen Therapy [RC] PRN Up With Assistance [RC] ASDIRECTED VTE/DVT Education [RC] PER UNIT ROUTINE Vital Signs [RC] Q4H Acetaminophen [Tylenol] 650 mg PO Q4H PRN Albuterol/Ipratropium [DuoNeb 3.0-0.5 MG/3 ML] 3 ml NEB Q4HRRT PRN Docusate Sodium [Colace] 100 mg PO BID PRN Morphine 2 mg IVPUSH Q2H PRN Ondansetron [Zofran ODT] 4 mg PO Q6H PRN Sodium Chloride 0.9% [Saline Flush] 10 ml FLUSH ASDIRECTED PRN Sodium Chloride 0.9% [Saline Flush] 2.5 ml FLUSH ASDIRECTED PRN Temazepam [Restoril] 15 mg PO BEDTIME PRN oxyCODONE 5 mg PO Q4H PRN Saline Lock Insert [OM.PC] Routine Resuscitation Status Routine 03/05/17 15:52 Pulse Oximetry [RC] CONTINUOUS 03/05/17 15:54 RT Aerosol Therapy [RC] ASDIRECTED 03/05/17 15:55 Polyethylene Glycol 3350 [MiraLAX] 17 gm PO DAILY PRN 03/05/17 16:00 Furosemide [Lasix] 40 mg IVPUSH DAILY 03/05/17 17:07 Communication Order [RC] ROUTINE 03/05/17 17:42 Consult to Physical Therapy [PT Evaluation and Treatment] [CONS] Routine 03/05/17 17:53 Urinary Catheter Assessment [RC] Q4H 03/05/17 18:00 Bone Catheter Insertion [Insert Urinary Catheter] [OM.PC] Q24H 03/05/17 21:00 Patient's Own Medication [Ptom] 1 each PO BEDTIME metFORMIN [Glucophage] 500 mg PO BID 03/05/17 21:53 Diltiazem 10 mg IVPUSH Q4H PRN 03/05/17 Dinner [employer] Diet [DIET] 03/06/17 04:30 fentaNYL [Duragesic] 25 mcg TRDERM Q72H 03/06/17 07:30 Insulin Aspart [NovoLOG] See Protocol SUBCUT TIDAC Levothyroxine [Synthroid] 50 mcg PO ACBRK 03/06/17 08:00 Glimepiride [Amaryl] 2 mg PO WITHBREAKFAST 03/06/17 09:00 Diltiazem [Cardizem CD] 180 mg PO DAILY Enoxaparin [Lovenox] 40 mg SUBCUT DAILY PARoxetine [Paxil] 40 mg PO DAILY Patient's Own Medication [Ptom] 1 each INH DAILY amLODIPine [Norvasc] 10 mg PO DAILY predniSONE 20 mg PO DAILY 03/07/17 07:00 Echo Comp wo Cont [US] Routine 03/08/17 12:00 Patient's Own Medication [Ptom] 0.75 each SUBCUT Q7D 03/11/17 12:00 cloNIDine [Catapres-TTS 3] 0.3 mg TOP Q7D - Plan Plan:: The patient is a chronically ill 56-year-old lady who will be observation status secondary to her atrial fibrillation. Patient also has been placed in saline lock and she is been given IV Lasix help to diurese the patient. The patient is also a type II diabetic and her last hemoglobin A1c was 7.2%. The patient is currently insulin-dependent as well as using additional medications. The patient will have her blood sugars checked 3 times a day and at bedtime and she'll be kept on medium dose sliding scale insulin. She had been previously on 22 units of insulin at bedtime. The patient is also morbidly obese and this is likely contributing to the patient's overall condition. The patient will be maintained on oxygen secondary to her hypoxia. There is no specific evidence of asthma however, the patient will also have albuterol Atrovent SVNs every 4 hours per respiratory therapy. After general improvement with the patient in terms of her anasarca she will be appropriate for discharge back to [facility] in 1-2 days. I've also ordered laboratory studies for the morning. The patient does have a history of chronic leukocytosis and at 17,000 this is normal for her. March 06, 2017: The patient is a 56-year-old lady who was admitted yesterday with Masoud marie with RVR. The patient's pulse rate initially had been in the 140s and irregular. The patient was rate controlled with diltiazem and currently her vital signs have been normal although she has had occasional excursions with her pulse rate around 110. The patient otherwise has been doing well with her pulse rate and patient subjectively says that she is breathing better today. The patient's diltiazem will likely have to be adjusted and I have ordered a consult with cardiology. The patient's sodium has rise to 150 mmol per liter and I suspect this is the result of the diuresis. This will continue to be monitored. For now I have encouraged patient to maintain by mouth fluids. The patient is still somewhat edematous and because of this I have ordered a 2-D echocardiogram to characterize the patient's left ventricular function prior to starting on beta chris order digoxin. Patient to continue with by mouth fluids as opposed IV fluids. The patient also has had a Bone catheter placed and the patient has been urinating heavily. The patient is currently staying at [facility] and once patient has been controlled she'll likely be appropriate for discharge back to [place]. The patient's previous B-type natriuretic peptide was 341. Patient is also diabetic and should be kept on diabetic diet with appropriate coverage of insulin. I'll see her on follow-up and her overall treatment plan will be adjusted as conditions and information indicates. She'll likely be appropriate for discharge in 1-2 days.
[2017-03-06] MEDS: Magnesium Oxide 400 MG Tab PO SCH ×2 (16:44→20:59)
[2017-03-06] MEDS: NEBIVOLOL 10 MG PO SCH (21:00)
[2017-03-07] MEDS: Insulin Aspart 100 Units/ML 3 ML Pen SUBCUT SCH ×3 (06:55→17:22)
[2017-03-07] MEDS: Levothyroxine 50 MCG Tab PO SCH (06:55)
[2017-03-07] MEDS: Furosemide 40 MG/4 ML VIAL IVPUSH SCH (09:15)
[2017-03-07] MEDS: PARoxetine 20 MG Tab PO SCH (09:15)
[2017-03-07] MEDS: predniSONE 10 MG Tab PO SCH (09:15)
[2017-03-07] MEDS: metFORMIN 500 MG Tab PO SCH ×2 (09:15→21:56)
[2017-03-07] MEDS: Magnesium Oxide 400 MG Tab PO SCH ×2 (09:15→21:55)
[2017-03-07] MEDS: Glimepiride 2 MG Tab PO SCH (09:15)
[2017-03-07] MEDS: amLODIPine 5 MG Tab PO SCH (09:17)
[2017-03-07] MEDS: Enoxaparin 40 MG/0.4 ML Syringe SUBCUT SCH (09:17)
--- NOTE | 2017-03-07 09:47 | PCM.PN ---
- General Info Date of Service: 03/07/17 Subjective Update: no chest pain, palpitations or sob. She is tolerating diet. munoz in place. Functional Status: Reports: Tolerating Diet, Urinating - Review of Systems General: Reports: No Symptoms HEENT: Reports: No Symptoms Pulmonary: Reports: No Symptoms Cardiovascular: Reports: No Symptoms Gastrointestinal: Reports: No Symptoms Genitourinary: Reports: No Symptoms Musculoskeletal: Reports: No Symptoms Skin: Reports: No Symptoms Neurological: Reports: No Symptoms Psychiatric: Reports: No Symptoms - Patient Data Vitals - most recent: Last Vital Signs Temp 96.7 F 03/07/17 08:00 Pulse 106 H 03/07/17 08:00 Resp 20 03/07/17 08:00 BP 117/76 03/07/17 09:17 Pulse Ox 93 L 03/07/17 08:00 Weight - most recent: 81.647 kg I&O - last 24 hours: Intake & Output 03/06/17 03/07/17 03/07/17 22:59 06:59 14:59 Intake Total 1560 400 Output Total 1400 500 Balance 160 -100 Lab Results last 24 hrs: Laboratory Results - last 24 hr 03/06/17 03/06/17 03/06/17 Range/Units 10:33 16:06 21:08 WBC (4.0-11.0) K/uL RBC (4.30-5.90) M/uL Hgb (12.0-16.0) g/dL Hct (36.0-46.0) % MCV (80.0-98.0) fL MCH (27.0-32.0) pg MCHC (31.0-37.0) g/dL RDW Std Deviation (28.0-62.0) fl RDW Coeff of Leia (11.0-15.0) % Plt Count (150-400) K/uL MPV (7.40-12.00) fL Neut % (Auto) (48.0-80.0) % Lymph % (Auto) (16.0-40.0) % [place] % (Auto) (0.0-15.0) % Eos % (Auto) (0.0-7.0) % Baso % (Auto) (0.0-1.5) % Neut # (Auto) (1.4-5.7) K/uL Lymph # (Auto) (0.6-2.4) K/uL [place] # (Auto) (0.0-0.8) K/uL Eos # (Auto) (0.0-0.7) K/uL Baso # (Auto) (0.0-0.1) K/uL Nucleated RBC % /100WBC Nucleated RBCs # K/uL Sodium (136-146) mmol/L Potassium (3.5-5.1) mmol/L Chloride (98-110) mmol/L Carbon Dioxide (21-31) mmol/L BUN (6.0-23.0) mg/dL Creatinine (0.6-1.5) mg/dL Est Cr Clr Drug Dosing mL/min Estimated GFR (MDRD) ml/min Glucose (60-110) mg/dL POC Glucose 315 H 302 H 284 H (60-110) mg/dL Calcium (8.8-10.8) mg/dL Phosphorus (2.4-4.7) mg/dL Magnesium (1.5-2.3) mEq/L Total Bilirubin (0.1-1.5) mg/dL AST (5-40) IU/L ALT (8-54) IU/L Alkaline Phosphatase (40-150) Total Protein (6.0-8.0) g/dL Albumin (3.5-5.0) g/dL Globulin (2.0-3.5) g/dL Albumin/Globulin Ratio (1.3-2.8) 03/07/17 03/07/17 03/07/17 Range/Units 06:03 06:54 06:54 WBC 14.40 H (4.0-11.0) K/uL RBC 4.14 L (4.30-5.90) M/uL Hgb 11.5 L (12.0-16.0) g/dL Hct 38.8 (36.0-46.0) % MCV 93.7 (80.0-98.0) fL MCH 27.8 (27.0-32.0) pg MCHC 29.6 L (31.0-37.0) g/dL RDW Std Deviation 58.2 (28.0-62.0) fl RDW Coeff of Leia 17 H (11.0-15.0) % Plt Count 394 (150-400) K/uL MPV 10.30 (7.40-12.00) fL Neut % (Auto) 81.7 H (48.0-80.0) % Lymph % (Auto) 11.4 L (16.0-40.0) % [place] % (Auto) 5.8 (0.0-15.0) % Eos % (Auto) 1.0 (0.0-7.0) % Baso % (Auto) 0.1 (0.0-1.5) % Neut # (Auto) 11.8 H (1.4-5.7) K/uL Lymph # (Auto) 1.6 (0.6-2.4) K/uL [place] # (Auto) 0.8 (0.0-0.8) K/uL Eos # (Auto) 0.1 (0.0-0.7) K/uL Baso # (Auto) 0.0 (0.0-0.1) K/uL Nucleated RBC % 0.0 /100WBC Nucleated RBCs # 0 K/uL Sodium 146 (136-146) mmol/L Potassium 3.5 (3.5-5.1) mmol/L Chloride 104 (98-110) mmol/L Carbon Dioxide 32 H (21-31) mmol/L BUN 42 H (6.0-23.0) mg/dL Creatinine 1.4 (0.6-1.5) mg/dL Est Cr Clr Drug Dosing 37.82 mL/min Estimated GFR (MDRD) 38.6 ml/min Glucose 187 H (60-110) mg/dL POC Glucose 179 H (60-110) mg/dL Calcium 8.4 L (8.8-10.8) mg/dL Phosphorus 3.2 (2.4-4.7) mg/dL Magnesium 1.5 (1.5-2.3) mEq/L Total Bilirubin 0.3 (0.1-1.5) mg/dL AST 12 (5-40) IU/L ALT 52 (8-54) IU/L Alkaline Phosphatase 104 (40-150) Total Protein 5.2 L (6.0-8.0) g/dL Albumin 3.0 L (3.5-5.0) g/dL Globulin 2.2 (2.0-3.5) g/dL Albumin/Globulin Ratio 1.4 (1.3-2.8) Med Orders - Current: Current Medications Acetaminophen (Tylenol) 650 mg PO Q4H PRN PRN Reason: Pain (Mild 1-3)/fever Albuterol/Ipratropium (Duoneb 3.0-0.5 Mg/3 Ml) 3 ml NEB Q4HRRT PRN PRN Reason: Shortness Of Breath/wheezing Amlodipine Besylate (Norvasc) 10 mg PO DAILY [facility] Last Admin: 03/07/17 09:17 Dose: 10 mg Clonidine HCl (Catapres-Tts 3) 0.3 mg TOP Q7D [facility] Diltiazem HCl (Diltiazem) 25 mg IVPUSH Q4H PRN PRN Reason: Tachycardia Last Admin: 03/06/17 21:02 Dose: 25 mg Docusate Sodium (Colace) 100 mg PO BID PRN PRN Reason: Constipation Enoxaparin Sodium (Lovenox) 40 mg SUBCUT DAILY [facility] Last Admin: 03/07/17 09:17 Dose: 40 mg Fentanyl (Duragesic) 25 mcg TRDERM Q72H [facility] Last Admin: 03/06/17 04:43 Dose: 25 mcg Furosemide (Lasix) 40 mg IVPUSH DAILY [facility] Last Admin: 03/07/17 09:15 Dose: 40 mg Glimepiride (Amaryl) 2 mg PO WITHBREAKFAST [facility] Last Admin: 03/07/17 09:15 Dose: 2 mg Insulin Aspart (Novolog) 0 unit SUBCUT TIDAC [facility] PRN Reason: Protocol Last Admin: 03/07/17 06:55 Dose: 2 units Levothyroxine Sodium (Synthroid) 50 mcg PO ACBRK [facility] Last Admin: 03/07/17 06:55 Dose: 50 mcg Magnesium Oxide (Magnesium Oxide) 400 mg PO BID [facility] Last Admin: 03/07/17 09:15 Dose: 400 mg Metformin HCl (Glucophage) 500 mg PO BID [facility] Last Admin: 03/07/17 09:15 Dose: 500 mg Ondansetron HCl (Zofran Odt) 4 mg PO Q6H PRN PRN Reason: nausea, able to take PO Oxycodone HCl (Oxycodone) 5 mg PO Q4H PRN PRN Reason: Pain (moderate 4-6) Last Admin: 03/06/17 21:00 Dose: 5 mg Paroxetine HCl (Paxil) 40 mg PO DAILY [facility] Last Admin: 03/07/17 09:15 Dose: 40 mg Dulaglutide [ (Trulicity] 0.75 Mg) 0.75 each SUBCUT Q7D [facility] Nebivolol 10 Mg 1 each PO BEDTIME [facility] Last Admin: 03/06/17 21:00 Dose: 1 each Breo Ellipta 1 each INH DAILY [facility] Last Admin: 03/06/17 08:44 Dose: 1 each Polyethylene Glycol (Miralax) 17 gm PO DAILY PRN PRN Reason: Constipation Prednisone (Prednisone) 20 mg PO DAILY [facility] Last Admin: 03/07/17 09:15 Dose: 20 mg Sodium Chloride (Saline Flush) 10 ml FLUSH ASDIRECTED PRN PRN Reason: Keep Vein Open Sodium Chloride (Saline Flush) 2.5 ml FLUSH ASDIRECTED PRN PRN Reason: Keep Vein Open Temazepam (Restoril) 15 mg PO BEDTIME PRN PRN Reason: Sleep Last Admin: 03/06/17 21:01 Dose: 15 mg Discontinued Medications Diltiazem HCl (Diltiazem) 10 mg IVPUSH ONETIME ONE Stop: 03/05/17 13:00 Last Admin: 03/05/17 13:07 Dose: 10 mg Diltiazem HCl (Diltiazem) 10 mg IVPUSH ONETIME ONE Stop: 03/05/17 14:33 Last Admin: 03/05/17 15:21 Dose: 10 mg Diltiazem HCl (Diltiazem) 10 mg IVPUSH Q8H PRN PRN Reason: Tachycardia Last Admin: 03/05/17 20:14 Dose: 10 mg Diltiazem HCl (Diltiazem) 10 mg IVPUSH Q4H PRN PRN Reason: [id number] Last Admin: 03/06/17 09:08 Dose: 10 mg Diltiazem HCl (Cardizem Cd) 180 mg PO DAILY [facility] Last Admin: 03/06/17 08:20 Dose: 180 mg Morphine Sulfate (Morphine) 2 mg IVPUSH Q2H PRN PRN Reason: Pain (severe 7-10) Stop: 03/06/17 15:53 Temazepam (Restoril) 15 mg PO BEDTIME [facility] - Exam General: alert, oriented HEENT: Pupils equal, EOMI Neck: supple Lungs: Clear to Auscultation, Normal Respiratory Effort GI/Abdominal Exam: Normal Bowel Sounds, Soft Extremities: Normal Inspection Skin: warm, dry, intact Neurological: no new focal deficit Psy/Mental Status: alert, normal affect, normal mood - Problem List Review Problem List Initiated/Reviewed/Updated: Yes - My Orders Last 24 Hours: My Active Orders 03/07/17 08:55 Remove Munoz Catheter [Urinary Catheter Removal] [RC] Per Unit Routine - Plan Plan:: The patient is a chronically ill 56-year-old lady who will be observation status secondary to her atrial fibrillation. Patient also has been placed in saline lock and she is been given IV Lasix help to diurese the patient. The patient is also a type II diabetic and her last hemoglobin A1c was 7.2%. The patient is currently insulin-dependent as well as using additional medications. The patient will have her blood sugars checked 3 times a day and at bedtime and she'll be kept on medium dose sliding scale insulin. She had been previously on 22 units of insulin at bedtime. The patient is also morbidly obese and this is likely contributing to the patient's overall condition. The patient will be maintained on oxygen secondary to her hypoxia. There is no specific evidence of asthma however, the patient will also have albuterol Atrovent SVNs every 4 hours per respiratory therapy. After general improvement with the patient in terms of her anasarca she will be appropriate for discharge back to [facility] in 1-2 days. I've also ordered laboratory studies for the morning. The patient does have a history of chronic leukocytosis and at 17,000 this is normal for her. March 06, 2017: The patient is a 56-year-old lady who was admitted yesterday with Masoud marie with RVR. The patient's pulse rate initially had been in the 140s and irregular. The patient was rate controlled with diltiazem and currently her vital signs have been normal although she has had occasional excursions with her pulse rate around 110. The patient otherwise has been doing well with her pulse rate and patient subjectively says that she is breathing better today. The patient's diltiazem will likely have to be adjusted and I have ordered a consult with cardiology. The patient's sodium has rise to 150 mmol per liter and I suspect this is the result of the diuresis. This will continue to be monitored. For now I have encouraged patient to maintain by mouth fluids. The patient is still somewhat edematous and because of this I have ordered a 2-D echocardiogram to characterize the patient's left ventricular function prior to starting on beta chris order digoxin. Patient to continue with by mouth fluids as opposed IV fluids. The patient also has had a Munoz catheter placed and the patient has been urinating heavily. The patient is currently staying at [facility] and once patient has been controlled she'll likely be appropriate for discharge back to [place]. The patient's previous B-type natriuretic peptide was 341. Patient is also diabetic and should be kept on diabetic diet with appropriate coverage of insulin. I'll see her on follow-up and her overall treatment plan will be adjusted as conditions and information indicates. She'll likely be appropriate for discharge in 1-2 days. march 07, 2017 New onset of A-fib with RVR: she is still tachycardic HR 110-120's. on IV Cardizem prn. Echo done today. cardiology consult with Dr. Arango anticipate discharge 1-2 days.
[2017-03-07] MEDS: BREO ELLIPTA INH SCH (09:48)
[2017-03-07] MEDS ORDERED: Diltiazem 120 MG Cap.CD PO SCH (10:00)
[2017-03-07] MEDS: Diltiazem 25 MG/5 ML SDV IVPUSH PRN (10:21)
--- NOTE | 2017-03-07 13:18 | CR ---
EXAM DATE: 03/05/17 PATIENT'S AGE: 56 Patient: COCO REILLY Facility: [place], [place] Site . Site : 1960 Study: XRay Chest [id number] 2:02:17 PM Ordering Physician: Edgar [place] Final Report: Pain shortness breath technique portable chest x-ray. Comparison: Chest x-ray dated 10/19/2016. Findings : Stable cardiac mediastinal silhouette. Lungs are clear of an acute airspace or interstitial process. No effusion or pneumothorax. Impression: 1. No acute pulmonary process . Dictated by Petyon De La Vega MD @ Mar 05 2017 2:25PM (Electronic Signature) Report Signed by Proxy. MTDD
[2017-03-07] MEDS ORDERED: Furosemide 40 MG/4 ML VIAL IVPUSH ONE (14:53)
[2017-03-07] MEDS ORDERED: Diltiazem IR 60 MG Tab PO SCH (15:00)
[2017-03-07] MEDS: Metoprolol Tartrate 25 MG Tab PO SCH ×2 (15:17→21:55)
[2017-03-08] MEDS: Diltiazem 25 MG/5 ML SDV IVPUSH PRN ×2 (01:41→17:03)
[2017-03-08] MEDS: Metoprolol Tartrate 25 MG Tab PO SCH ×2 (02:56→08:11)
[2017-03-08] MEDS: Levothyroxine 50 MCG Tab PO SCH (06:39)
[2017-03-08] MEDS: Insulin Aspart 100 Units/ML 3 ML Pen SUBCUT SCH ×3 (07:02→16:58)
[2017-03-08] MEDS: Enoxaparin 40 MG/0.4 ML Syringe SUBCUT SCH (08:10)
[2017-03-08] MEDS: PARoxetine 20 MG Tab PO SCH (08:11)
[2017-03-08] MEDS: predniSONE 10 MG Tab PO SCH (08:11)
[2017-03-08] MEDS: amLODIPine 5 MG Tab PO SCH (08:11)
[2017-03-08] MEDS: Magnesium Oxide 400 MG Tab PO SCH ×2 (08:12→20:22)
[2017-03-08] MEDS: metFORMIN 500 MG Tab PO SCH ×2 (08:12→20:22)
[2017-03-08] MEDS: Furosemide 40 MG/4 ML VIAL IVPUSH SCH (08:12)
[2017-03-08] MEDS: Glimepiride 2 MG Tab PO SCH (08:12)
--- NOTE | 2017-03-08 09:17 | PCM.PN ---
- General Info Date of Service: 03/08/17 Admission Dx/Problem (Free Text): 56F CVA pelvic fx HTN DM CAD PCI with persistent afib RVR HF Subjective Update: she has felt better, HR better in 100-110, BP tolerated, munoz removed Functional Status: Reports: Pain Controlled - Review of Systems General: Reports: No Symptoms HEENT: Reports: No Symptoms Pulmonary: Reports: No Symptoms, Shortness of Breath Cardiovascular: Reports: No Symptoms Gastrointestinal: Reports: No Symptoms Genitourinary: Reports: No Symptoms Musculoskeletal: Reports: No Symptoms Skin: Reports: No Symptoms Neurological: Reports: No Symptoms Psychiatric: Reports: No Symptoms - Patient Data Vitals - Most Recent: Last Vital Signs Temp 35.7 C 03/08/17 04:00 Pulse 105 H 03/08/17 08:11 Resp 24 H 03/08/17 04:00 BP 137/73 03/08/17 08:11 Pulse Ox 94 L 03/08/17 04:00 Weight - Most Recent: 114.4 kg I&O - Last 24 Hours: Intake & Output 03/07/17 03/08/17 03/08/17 22:59 06:59 14:59 Intake Total 1040 620 Output Total 280 400 Balance 760 220 Lab Results Last 24 Hours: Laboratory Results - last 24 hr 03/07/17 03/07/17 03/07/17 Range/Units 11:38 17:15 21:19 WBC (4.0-11.0) K/uL RBC (4.30-5.90) M/uL Hgb (12.0-16.0) g/dL Hct (36.0-46.0) % MCV (80.0-98.0) fL MCH (27.0-32.0) pg MCHC (31.0-37.0) g/dL RDW Std Deviation (28.0-62.0) fl RDW Coeff of Leia (11.0-15.0) % Plt Count (150-400) K/uL MPV (7.40-12.00) fL Neut % (Auto) (48.0-80.0) % Lymph % (Auto) (16.0-40.0) % [place] % (Auto) (0.0-15.0) % Eos % (Auto) (0.0-7.0) % Baso % (Auto) (0.0-1.5) % Neut # (Auto) (1.4-5.7) K/uL Lymph # (Auto) (0.6-2.4) K/uL [place] # (Auto) (0.0-0.8) K/uL Eos # (Auto) (0.0-0.7) K/uL Baso # (Auto) (0.0-0.1) K/uL Nucleated RBC % /100WBC Nucleated RBCs # K/uL Sodium (136-146) mmol/L Potassium (3.5-5.1) mmol/L Chloride (98-110) mmol/L Carbon Dioxide (21-31) mmol/L BUN (6.0-23.0) mg/dL Creatinine (0.6-1.5) mg/dL Est Cr Clr Drug Dosing mL/min Estimated GFR (MDRD) ml/min Glucose (60-110) mg/dL POC Glucose 221 H 309 H 285 H (60-110) mg/dL Calcium (8.8-10.8) mg/dL Magnesium (1.5-2.3) mEq/L 03/08/17 03/08/17 03/08/17 Range/Units 04:48 04:48 06:38 WBC 14.71 H (4.0-11.0) K/uL RBC 4.13 L (4.30-5.90) M/uL Hgb 11.9 L (12.0-16.0) g/dL Hct 39.1 (36.0-46.0) % MCV 94.7 (80.0-98.0) fL MCH 28.8 (27.0-32.0) pg MCHC 30.4 L (31.0-37.0) g/dL RDW Std Deviation 57.9 (28.0-62.0) fl RDW Coeff of Leia 17 H (11.0-15.0) % Plt Count 404 H (150-400) K/uL MPV 11.00 (7.40-12.00) fL Neut % (Auto) 85.3 H (48.0-80.0) % Lymph % (Auto) 8.8 L (16.0-40.0) % [place] % (Auto) 5.3 (0.0-15.0) % Eos % (Auto) 0.5 (0.0-7.0) % Baso % (Auto) 0.1 (0.0-1.5) % Neut # (Auto) 12.5 H (1.4-5.7) K/uL Lymph # (Auto) 1.3 (0.6-2.4) K/uL [place] # (Auto) 0.8 (0.0-0.8) K/uL Eos # (Auto) 0.1 (0.0-0.7) K/uL Baso # (Auto) 0.0 (0.0-0.1) K/uL Nucleated RBC % 0.2 /100WBC Nucleated RBCs # 0 K/uL Sodium 146 (136-146) mmol/L Potassium 4.6 (3.5-5.1) mmol/L Chloride 101 (98-110) mmol/L Carbon Dioxide 34 H (21-31) mmol/L BUN 47 H (6.0-23.0) mg/dL Creatinine 1.5 (0.6-1.5) mg/dL Est Cr Clr Drug Dosing 35.30 mL/min Estimated GFR (MDRD) 35.7 ml/min Glucose 287 H (60-110) mg/dL POC Glucose 228 H (60-110) mg/dL Calcium 9.5 (8.8-10.8) mg/dL Magnesium 1.6 (1.5-2.3) mEq/L Med Orders - Current: Current Medications Acetaminophen (Tylenol) 650 mg PO Q4H PRN PRN Reason: Pain (Mild 1-3)/fever Albuterol/Ipratropium (Duoneb 3.0-0.5 Mg/3 Ml) 3 ml NEB Q4HRRT PRN PRN Reason: Shortness Of Breath/wheezing Amlodipine Besylate (Norvasc) 10 mg PO DAILY [facility] Last Admin: 03/08/17 08:11 Dose: 10 mg Clonidine HCl (Catapres-Tts 3) 0.3 mg TOP Q7D [facility] Diltiazem HCl (Diltiazem) 25 mg IVPUSH Q4H PRN PRN Reason: Tachycardia Last Admin: 03/08/17 01:41 Dose: 25 mg Docusate Sodium (Colace) 100 mg PO BID PRN PRN Reason: Constipation Enoxaparin Sodium (Lovenox) 40 mg SUBCUT DAILY [facility] Last Admin: 03/08/17 08:10 Dose: 40 mg Fentanyl (Duragesic) 25 mcg TRDERM Q72H [facility] Last Admin: 03/06/17 04:43 Dose: 25 mcg Furosemide (Lasix) 40 mg IVPUSH DAILY [facility] Last Admin: 03/08/17 08:12 Dose: 40 mg Glimepiride (Amaryl) 2 mg PO WITHBREAKFAST [facility] Last Admin: 03/08/17 08:12 Dose: 2 mg Insulin Aspart (Novolog) 0 unit SUBCUT TIDAC [facility] PRN Reason: Protocol Last Admin: 03/08/17 07:02 Dose: 4 units Levothyroxine Sodium (Synthroid) 50 mcg PO ACBRK [facility] Last Admin: 03/08/17 06:39 Dose: 50 mcg Magnesium Oxide (Magnesium Oxide) 400 mg PO BID [facility] Last Admin: 03/08/17 08:12 Dose: 400 mg Metformin HCl (Glucophage) 500 mg PO BID [facility] Last Admin: 03/08/17 08:12 Dose: 500 mg Metoprolol Tartrate (Lopressor) 25 mg PO Q6H [facility] Last Admin: 03/08/17 08:11 Dose: 25 mg Ondansetron HCl (Zofran Odt) 4 mg PO Q6H PRN PRN Reason: nausea, able to take PO Oxycodone HCl (Oxycodone) 5 mg PO Q4H PRN PRN Reason: Pain (moderate 4-6) Last Admin: 03/06/17 21:00 Dose: 5 mg Paroxetine HCl (Paxil) 40 mg PO DAILY [facility] Last Admin: 03/08/17 08:11 Dose: 40 mg Dulaglutide [ (Trulicity] 0.75 Mg) 0.75 each SUBCUT Q7D [facility] Breo Ellipta 1 each INH DAILY [facility] Last Admin: 03/07/17 09:48 Dose: 1 each Polyethylene Glycol (Miralax) 17 gm PO DAILY PRN PRN Reason: Constipation Prednisone (Prednisone) 20 mg PO DAILY [facility] Last Admin: 03/08/17 08:11 Dose: 20 mg Sodium Chloride (Saline Flush) 10 ml FLUSH ASDIRECTED PRN PRN Reason: Keep Vein Open Sodium Chloride (Saline Flush) 2.5 ml FLUSH ASDIRECTED PRN PRN Reason: Keep Vein Open Temazepam (Restoril) 15 mg PO BEDTIME PRN PRN Reason: Sleep Last Admin: 03/06/17 21:01 Dose: 15 mg Discontinued Medications Diltiazem HCl (Diltiazem) 10 mg IVPUSH ONETIME ONE Stop: 03/05/17 13:00 Last Admin: 03/05/17 13:07 Dose: 10 mg Diltiazem HCl (Diltiazem) 10 mg IVPUSH ONETIME ONE Stop: 03/05/17 14:33 Last Admin: 03/05/17 15:21 Dose: 10 mg Diltiazem HCl (Diltiazem) 10 mg IVPUSH Q8H PRN PRN Reason: Tachycardia Last Admin: 03/05/17 20:14 Dose: 10 mg Diltiazem HCl (Diltiazem) 10 mg IVPUSH Q4H PRN PRN Reason: [id number] Last Admin: 03/06/17 09:08 Dose: 10 mg Diltiazem HCl (Cardizem Cd) 180 mg PO DAILY [facility] Last Admin: 03/06/17 08:20 Dose: 180 mg Diltiazem HCl (Cardizem Cd) 120 mg PO DAILY [facility] Last Admin: 03/07/17 11:16 Dose: Not Given Diltiazem HCl (Cardizem) 60 mg PO Q6HR [facility] Furosemide (Lasix) 40 mg IVPUSH ONETIME ONE Stop: 03/07/17 14:54 Last Admin: 03/07/17 15:15 Dose: 40 mg Morphine Sulfate (Morphine) 2 mg IVPUSH Q2H PRN PRN Reason: Pain (severe 7-10) Stop: 03/06/17 15:53 Nebivolol 10 Mg 1 each PO BEDTIME [facility] Last Admin: 03/06/17 21:00 Dose: 1 each Temazepam (Restoril) 15 mg PO BEDTIME [facility] - Exam Quality Assessment: Supplemental Oxygen General: Alert, Oriented HEENT: Pupils Equal, Pupils Reactive Neck: Supple Lungs: Rales Cardiovascular: Irregular Rhythm, Tachycardia GI/Abdominal Exam: Normal Bowel Sounds, No Distention Extremities: Pedal Edema EKG INTERPRETATION Rhythm: A-Fib - Problem List Review Problem List Initiated/Reviewed/Updated: Yes - My Orders Last 24 Hours: My Active Orders 03/07/17 15:00 Metoprolol Tartrate [Lopressor] 25 mg PO Q6H 03/07/17 15:03 Daily Weight [Height and Weight] [RC] DAILY - Plan Plan:: 56F HTN DM CVA x 3 CAD PCI with persistent afib hx asthma decompensated HF 1. afib/ decompensated systolic HF, her EF looked declined, however it was not well visualized. She probably need stress test as outpatient. HR better controlled today will increase metoprolol to 50 TID< lasix 40 IV BID, will stop lovenox, start her on xarelto 15 daily [id number] = 6 - lasix 40 IV BID, tomorrow will do lasix 40 PO BID - limit fluid intake 1500 - increase metoprolol 50 TID - start Xarelto 15 daily
--- NOTE | 2017-03-08 09:36 | CONS ---
DATE OF CONSULTATION: DATE OF : 1960 PRIMARY CARE PHYSICIAN: None PCP REASON FOR CONSULTATION: Atrial fibrillation and RVR. HISTORY OF PRESENT ILLNESS: This is a 56-year-old female with a history of CVA x3, history of CAD status post PCI, diabetes, hypertension, and history of asplenia who has been in the rehab in [facility] because of the pelvic fracture,e and she was sent here to the hospital because of her symptoms of shortness of breath. The patient stated that she became more short of breath since last Tuesday, also she felt heart raising, and that is why she was brought into the hospital. She denies chest pain, and she also feels that she has gained weight as well as more swollen. When she was admitted in the hospital, she was found to be in atrial fibrillation. Her medications in the [facility] included amlodipine 10 mg once a day, aspirin 325 mg once a day, Lasix 40 mg p.o. once a day, Lipitor 40 mg once a day, metformin 500 mg twice a day, and diltiazem 25 mg IV p.r.n. q.4 hours for atrial fibrillation has been order as well as of Lasix 40 mg IV once a day as well. She also is on the steroid of prednisone 20 mg once a day. She also has a history of asthma and has used inhaler as well. Otherwise, she stated that when she was in the rehab, she was still doing the physical therapy, and she could get around by the electrical chair as well as she lived alone. Her 2 years ago and she lived here in [place] for 4 years from [place]. PAST MEDICAL HISTORY: Includes CAD status post PCI, history of stroke x3, diabetes, hypertension, and history of asplenia. ALLERGIES: AVIS inhibitor. MEDICATIONS: Home medication in the senior living includes amlodipine 10 mg once a day, aspirin 325 mg once a day, Lipitor 40 mg once a day, Lasix 40 mg once a day, metformin 500 mg twice a day, and prednisone 20 mg once a day. SOCIAL HISTORY: Denies smoking, drug use or alcoholic consumption. FAMILY HISTORY: Noncontributory. REVIEW OF SYSTEMS: Positive for shortness of breath and weakness, otherwise, has been negative for a 12-point review of systems. PHYSICAL EXAMINATION: VITAL SIGNS: Initial blood pressure is 130/99 and current blood pressure is 133/95, initial heart rate is 120 and current heart rate is 100 to 110, temperature is 35.7, and O2 saturation 94% on 4 L. HEENT: JVD positive. LUNGS: Expiratory wheezing and also bilateral crackles. ABDOMEN: Soft, nontender. Bowel sounds are present. No hepatosplenomegaly. EXTREMITIES: Legs, edema bilaterally and there is some chronic wound on discharge on the left leg. LABORATORY INVESTIGATION: CBC showed WBC of 14, hematocrit of 39, and platelet of 404. Sodium 146, potassium 4.3, chloride 101, BUN 14 creatinine 1.5, and GFR of 35. Troponin was checked one time is negative and BNP is 341. Echocardiogram: Baseline echocardiogram was not a good quality and endocardium lining was not well recently. However, I am suspicious that her ejection fraction seemed to be decline. ASSESSMENT AND PLAN: This is a 56-year-old female with history of stroke x3, CAD status post PCI, diabetes, hypertension, and asplenia who presented to hospital with shortness of breath, with atrial fibrillation, rapid ventricular response of unknown onset, shortness of breath, history of asthma, possibly decompensated heart failure. Her ejection fraction seemed to be decline. However, the echocardiogram image quality is not very well visualized. I will increase the Lasix to 40 mg IV twice a day as well as I will stop Bystolic as well as I will start her on metoprolol 25 p.o. q.6 hours for heart rate control. Regarding her anticoagulation for atrial fibrillation, her CHADS-VASc score is at least 6. She would need long-term anticoagulation. I would recommend probably Xarelto with her GFR of 35 and her BMI is 43, I would think she probably need Xarelto 20 mg once a day and continue the prednisone 20 mg once a as well and I will follow the patient. WALDEMAR / COURTNEY /[id number]
--- NOTE | 2017-03-08 10:17 | PCM.PN ---
- General Info Date of Service: 03/08/17 - Review of Systems General: Reports: No Symptoms HEENT: Reports: No Symptoms Pulmonary: Reports: No Symptoms Cardiovascular: Reports: No Symptoms Gastrointestinal: Reports: No Symptoms Genitourinary: Reports: No Symptoms Musculoskeletal: Reports: No Symptoms Skin: Reports: No Symptoms Neurological: Reports: No Symptoms Psychiatric: Reports: No Symptoms - Patient Data Vitals - Most Recent: Last Vital Signs Temp 96.3 F 03/08/17 04:00 Pulse 105 H 03/08/17 08:11 Resp 24 H 03/08/17 04:00 BP 137/73 03/08/17 08:11 Pulse Ox 94 L 03/08/17 04:00 Weight - Most Recent: 114.4 kg I&O - Last 24 Hours: Intake & Output 03/07/17 03/08/17 03/08/17 22:59 06:59 14:59 Intake Total 1040 620 Output Total 280 400 Balance 760 220 Lab Results Last 24 Hours: Laboratory Results - last 24 hr 03/07/17 03/07/17 03/07/17 Range/Units 11:38 17:15 21:19 WBC (4.0-11.0) K/uL RBC (4.30-5.90) M/uL Hgb (12.0-16.0) g/dL Hct (36.0-46.0) % MCV (80.0-98.0) fL MCH (27.0-32.0) pg MCHC (31.0-37.0) g/dL RDW Std Deviation (28.0-62.0) fl RDW Coeff of Leia (11.0-15.0) % Plt Count (150-400) K/uL MPV (7.40-12.00) fL Neut % (Auto) (48.0-80.0) % Lymph % (Auto) (16.0-40.0) % [place] % (Auto) (0.0-15.0) % Eos % (Auto) (0.0-7.0) % Baso % (Auto) (0.0-1.5) % Neut # (Auto) (1.4-5.7) K/uL Lymph # (Auto) (0.6-2.4) K/uL [place] # (Auto) (0.0-0.8) K/uL Eos # (Auto) (0.0-0.7) K/uL Baso # (Auto) (0.0-0.1) K/uL Nucleated RBC % /100WBC Nucleated RBCs # K/uL Sodium (136-146) mmol/L Potassium (3.5-5.1) mmol/L Chloride (98-110) mmol/L Carbon Dioxide (21-31) mmol/L BUN (6.0-23.0) mg/dL Creatinine (0.6-1.5) mg/dL Est Cr Clr Drug Dosing mL/min Estimated GFR (MDRD) ml/min Glucose (60-110) mg/dL POC Glucose 221 H 309 H 285 H (60-110) mg/dL Calcium (8.8-10.8) mg/dL Magnesium (1.5-2.3) mEq/L 03/08/17 03/08/17 03/08/17 Range/Units 04:48 04:48 06:38 WBC 14.71 H (4.0-11.0) K/uL RBC 4.13 L (4.30-5.90) M/uL Hgb 11.9 L (12.0-16.0) g/dL Hct 39.1 (36.0-46.0) % MCV 94.7 (80.0-98.0) fL MCH 28.8 (27.0-32.0) pg MCHC 30.4 L (31.0-37.0) g/dL RDW Std Deviation 57.9 (28.0-62.0) fl RDW Coeff of Leia 17 H (11.0-15.0) % Plt Count 404 H (150-400) K/uL MPV 11.00 (7.40-12.00) fL Neut % (Auto) 85.3 H (48.0-80.0) % Lymph % (Auto) 8.8 L (16.0-40.0) % [place] % (Auto) 5.3 (0.0-15.0) % Eos % (Auto) 0.5 (0.0-7.0) % Baso % (Auto) 0.1 (0.0-1.5) % Neut # (Auto) 12.5 H (1.4-5.7) K/uL Lymph # (Auto) 1.3 (0.6-2.4) K/uL [place] # (Auto) 0.8 (0.0-0.8) K/uL Eos # (Auto) 0.1 (0.0-0.7) K/uL Baso # (Auto) 0.0 (0.0-0.1) K/uL Nucleated RBC % 0.2 /100WBC Nucleated RBCs # 0 K/uL Sodium 146 (136-146) mmol/L Potassium 4.6 (3.5-5.1) mmol/L Chloride 101 (98-110) mmol/L Carbon Dioxide 34 H (21-31) mmol/L BUN 47 H (6.0-23.0) mg/dL Creatinine 1.5 (0.6-1.5) mg/dL Est Cr Clr Drug Dosing 35.30 mL/min Estimated GFR (MDRD) 35.7 ml/min Glucose 287 H (60-110) mg/dL POC Glucose 228 H (60-110) mg/dL Calcium 9.5 (8.8-10.8) mg/dL Magnesium 1.6 (1.5-2.3) mEq/L Med Orders - Current: Current Medications Acetaminophen (Tylenol) 650 mg PO Q4H PRN PRN Reason: Pain (Mild 1-3)/fever Albuterol/Ipratropium (Duoneb 3.0-0.5 Mg/3 Ml) 3 ml NEB Q4HRRT PRN PRN Reason: Shortness Of Breath/wheezing Amlodipine Besylate (Norvasc) 10 mg PO DAILY [facility] Last Admin: 03/08/17 08:11 Dose: 10 mg Clonidine HCl (Catapres-Tts 3) 0.3 mg TOP Q7D [facility] Diltiazem HCl (Diltiazem) 25 mg IVPUSH Q4H PRN PRN Reason: Tachycardia Last Admin: 03/08/17 01:41 Dose: 25 mg Docusate Sodium (Colace) 100 mg PO BID PRN PRN Reason: Constipation Fentanyl (Duragesic) 25 mcg TRDERM Q72H [facility] Last Admin: 03/06/17 04:43 Dose: 25 mcg Furosemide (Lasix) 40 mg IVPUSH DAILY [facility] Last Admin: 03/08/17 08:12 Dose: 40 mg Furosemide (Lasix) 40 mg IVPUSH ONETIME ONE Stop: 03/08/17 16:01 Glimepiride (Amaryl) 2 mg PO WITHBREAKFAST [facility] Last Admin: 03/08/17 08:12 Dose: 2 mg Insulin Aspart (Novolog) 0 unit SUBCUT TIDAC [facility] PRN Reason: Protocol Last Admin: 03/08/17 07:02 Dose: 4 units Levothyroxine Sodium (Synthroid) 50 mcg PO ACBRK [facility] Last Admin: 03/08/17 06:39 Dose: 50 mcg Magnesium Oxide (Magnesium Oxide) 400 mg PO BID [facility] Last Admin: 03/08/17 08:12 Dose: 400 mg Metformin HCl (Glucophage) 500 mg PO BID [facility] Last Admin: 03/08/17 08:12 Dose: 500 mg Metoprolol Tartrate (Lopressor) 50 mg PO TID [facility] Ondansetron HCl (Zofran Odt) 4 mg PO Q6H PRN PRN Reason: nausea, able to take PO Oxycodone HCl (Oxycodone) 5 mg PO Q4H PRN PRN Reason: Pain (moderate 4-6) Last Admin: 03/06/17 21:00 Dose: 5 mg Paroxetine HCl (Paxil) 40 mg PO DAILY [facility] Last Admin: 03/08/17 08:11 Dose: 40 mg Dulaglutide [ (Trulicity] 0.75 Mg) 0.75 each SUBCUT Q7D [facility] Breo Ellipta 1 each INH DAILY [facility] Last Admin: 03/07/17 09:48 Dose: 1 each Polyethylene Glycol (Miralax) 17 gm PO DAILY PRN PRN Reason: Constipation Prednisone (Prednisone) 20 mg PO DAILY [facility] Last Admin: 03/08/17 08:11 Dose: 20 mg Rivaroxaban (Xarelto) 15 mg PO BEDTIME [facility] Sodium Chloride (Saline Flush) 10 ml FLUSH ASDIRECTED PRN PRN Reason: Keep Vein Open Sodium Chloride (Saline Flush) 2.5 ml FLUSH ASDIRECTED PRN PRN Reason: Keep Vein Open Temazepam (Restoril) 15 mg PO BEDTIME PRN PRN Reason: Sleep Last Admin: 03/06/17 21:01 Dose: 15 mg Discontinued Medications Diltiazem HCl (Diltiazem) 10 mg IVPUSH ONETIME ONE Stop: 03/05/17 13:00 Last Admin: 03/05/17 13:07 Dose: 10 mg Diltiazem HCl (Diltiazem) 10 mg IVPUSH ONETIME ONE Stop: 03/05/17 14:33 Last Admin: 03/05/17 15:21 Dose: 10 mg Diltiazem HCl (Diltiazem) 10 mg IVPUSH Q8H PRN PRN Reason: Tachycardia Last Admin: 03/05/17 20:14 Dose: 10 mg Diltiazem HCl (Diltiazem) 10 mg IVPUSH Q4H PRN PRN Reason: [id number] Last Admin: 03/06/17 09:08 Dose: 10 mg Diltiazem HCl (Cardizem Cd) 180 mg PO DAILY [facility] Last Admin: 03/06/17 08:20 Dose: 180 mg Diltiazem HCl (Cardizem Cd) 120 mg PO DAILY [facility] Last Admin: 03/07/17 11:16 Dose: Not Given Diltiazem HCl (Cardizem) 60 mg PO Q6HR [facility] Enoxaparin Sodium (Lovenox) 40 mg SUBCUT DAILY [facility] Last Admin: 03/08/17 08:10 Dose: 40 mg Furosemide (Lasix) 40 mg IVPUSH ONETIME ONE Stop: 03/07/17 14:54 Last Admin: 03/07/17 15:15 Dose: 40 mg Metoprolol Tartrate (Lopressor) 25 mg PO Q6H [facility] Last Admin: 03/08/17 08:11 Dose: 25 mg Morphine Sulfate (Morphine) 2 mg IVPUSH Q2H PRN PRN Reason: Pain (severe 7-10) Stop: 03/06/17 15:53 Nebivolol 10 Mg 1 each PO BEDTIME [facility] Last Admin: 03/06/17 21:00 Dose: 1 each Temazepam (Restoril) 15 mg PO BEDTIME [facility] - Exam General: Alert, Oriented HEENT: Pupils Equal, EOMI - Problem List Review Problem List Initiated/Reviewed/Updated: Yes - My Orders Last 24 Hours: My Active Orders 03/08/17 10:14 Admission Status [Patient Status] [ADT] Routine 03/09/17 05:11 MAGNESIUM [CHEM] AM 03/10/17 05:11 MAGNESIUM [CHEM] AM - Plan Plan:: 56F HTN DM CVA x 3 CAD PCI with persistent afib hx asthma decompensated HF 1. afib/ decompensated systolic HF, her EF looked declined, however it was not well visualized. She probably need stress test as outpatient. HR better controlled today will increase metoprolol to 50 TID< lasix 40 IV BID, will stop lovenox, start her on xarelto 15 daily [id number] = 6 - lasix 40 IV BID, tomorrow will do lasix 40 PO BID - limit fluid intake 1500 - increase metoprolol 50 TID - start Xarelto 15 daily
[2017-03-08] MEDS: Metoprolol Tartrate 50 MG Tab PO SCH ×3 (11:48→20:23)
[2017-03-08] MEDS ORDERED: Dulaglutide [Trulicity] 0.75 MG SUBCUT SCH (12:00)
[2017-03-08] MEDS: BREO ELLIPTA INH SCH (12:17)
[2017-03-08] MEDS ORDERED: Furosemide 40 MG/4 ML VIAL IVPUSH ONE (16:00)
[2017-03-08] MEDS: Rivaroxaban 15 MG Tab PO SCH (20:22)
[2017-03-09] MEDS: Diltiazem 25 MG/5 ML SDV IVPUSH PRN ×3 (02:47→16:18)
[2017-03-09] MEDS: fentaNYL 25 MCG/HR Transdermal Patch TRDERM SCH (04:33)
[2017-03-09] MEDS: Levothyroxine 50 MCG Tab PO SCH (06:45)
[2017-03-09] MEDS: Metoprolol Tartrate 50 MG Tab PO SCH ×2 (07:00→13:22)
[2017-03-09] MEDS: Insulin Aspart 100 Units/ML 3 ML Pen SUBCUT SCH ×3 (07:00→17:51)
[2017-03-09] MEDS: metFORMIN 500 MG Tab PO SCH ×2 (08:29→20:40)
[2017-03-09] MEDS: Glimepiride 2 MG Tab PO SCH (08:29)
[2017-03-09] MEDS: PARoxetine 20 MG Tab PO SCH (08:29)
[2017-03-09] MEDS: Magnesium Oxide 400 MG Tab PO SCH ×2 (08:30→20:41)
[2017-03-09] MEDS: amLODIPine 5 MG Tab PO SCH (08:30)
[2017-03-09] MEDS: Furosemide 40 MG/4 ML VIAL IVPUSH SCH (08:32)
[2017-03-09] MEDS: predniSONE 10 MG Tab PO SCH (08:32)
[2017-03-09] MEDS: BREO ELLIPTA INH SCH (08:42)
--- NOTE | 2017-03-09 10:41 | PCM.PN ---
- General Info Date of Service: 03/09/17 Functional Status: Reports: Pain Controlled, Tolerating Diet - Review of Systems General: Reports: No Symptoms HEENT: Reports: No Symptoms Pulmonary: Reports: No Symptoms Cardiovascular: Reports: No Symptoms Gastrointestinal: Reports: No Symptoms Genitourinary: Reports: No Symptoms Musculoskeletal: Reports: Other (rugt ) Skin: Reports: No Symptoms Neurological: Reports: No Symptoms Psychiatric: Reports: No Symptoms - Patient Data Vitals - Most Recent: Last Vital Signs Temp 95.8 F 03/09/17 08:00 Pulse 113 H 03/09/17 08:00 Resp 20 03/09/17 08:00 BP 149/92 H 03/09/17 08:30 Pulse Ox 94 L 03/09/17 08:00 Weight - Most Recent: 114 kg I&O - Last 24 Hours: Intake & Output 03/08/17 03/09/17 03/09/17 22:59 06:59 14:59 Intake Total 240 170 Output Total 350 Balance -110 170 Lab Results Last 24 Hours: Laboratory Results - last 24 hr 03/08/17 03/08/17 03/09/17 Range/Units 16:33 23:39 05:22 WBC (4.0-11.0) K/uL RBC (4.30-5.90) M/uL Hgb (12.0-16.0) g/dL Hct (36.0-46.0) % MCV (80.0-98.0) fL MCH (27.0-32.0) pg MCHC (31.0-37.0) g/dL RDW Std Deviation (28.0-62.0) fl RDW Coeff of Leia (11.0-15.0) % Plt Count (150-400) K/uL MPV (7.40-12.00) fL Neut % (Auto) (48.0-80.0) % Lymph % (Auto) (16.0-40.0) % [place] % (Auto) (0.0-15.0) % Eos % (Auto) (0.0-7.0) % Baso % (Auto) (0.0-1.5) % Neut # (Auto) (1.4-5.7) K/uL Lymph # (Auto) (0.6-2.4) K/uL [place] # (Auto) (0.0-0.8) K/uL Eos # (Auto) (0.0-0.7) K/uL Baso # (Auto) (0.0-0.1) K/uL Nucleated RBC % /100WBC Nucleated RBCs # K/uL Sodium 145 (136-146) mmol/L Potassium 3.7 (3.5-5.1) mmol/L Chloride 101 (98-110) mmol/L Carbon Dioxide 36 H (21-31) mmol/L BUN 44 H (6.0-23.0) mg/dL Creatinine 1.2 (0.6-1.5) mg/dL Est Cr Clr Drug Dosing 44.13 mL/min Estimated GFR (MDRD) 46.1 ml/min Glucose 195 H (60-110) mg/dL POC Glucose 319 H 237 H (60-110) mg/dL Calcium 8.9 (8.8-10.8) mg/dL Phosphorus 2.5 (2.4-4.7) mg/dL Magnesium 1.5 (1.5-2.3) mEq/L 03/09/17 03/09/17 Range/Units 05:22 06:46 WBC 13.58 H (4.0-11.0) K/uL RBC 4.21 L (4.30-5.90) M/uL Hgb 11.8 L (12.0-16.0) g/dL Hct 39.3 (36.0-46.0) % MCV 93.3 (80.0-98.0) fL MCH 28.0 (27.0-32.0) pg MCHC 30.0 L (31.0-37.0) g/dL RDW Std Deviation 56.6 (28.0-62.0) fl RDW Coeff of Leia 17 H (11.0-15.0) % Plt Count 383 (150-400) K/uL MPV 10.60 (7.40-12.00) fL Neut % (Auto) 80.4 H (48.0-80.0) % Lymph % (Auto) 12.3 L (16.0-40.0) % [place] % (Auto) 6.3 (0.0-15.0) % Eos % (Auto) 0.7 (0.0-7.0) % Baso % (Auto) 0.3 (0.0-1.5) % Neut # (Auto) 10.9 H (1.4-5.7) K/uL Lymph # (Auto) 1.7 (0.6-2.4) K/uL [place] # (Auto) 0.9 H (0.0-0.8) K/uL Eos # (Auto) 0.1 (0.0-0.7) K/uL Baso # (Auto) 0.0 (0.0-0.1) K/uL Nucleated RBC % 0.0 /100WBC Nucleated RBCs # 0 K/uL Sodium (136-146) mmol/L Potassium (3.5-5.1) mmol/L Chloride (98-110) mmol/L Carbon Dioxide (21-31) mmol/L BUN (6.0-23.0) mg/dL Creatinine (0.6-1.5) mg/dL Est Cr Clr Drug Dosing mL/min Estimated GFR (MDRD) ml/min Glucose (60-110) mg/dL POC Glucose 158 H (60-110) mg/dL Calcium (8.8-10.8) mg/dL Phosphorus (2.4-4.7) mg/dL Magnesium (1.5-2.3) mEq/L Med Orders - Current: Current Medications Acetaminophen (Tylenol) 650 mg PO Q4H PRN PRN Reason: Pain (Mild 1-3)/fever Albuterol/Ipratropium (Duoneb 3.0-0.5 Mg/3 Ml) 3 ml NEB Q4HRRT PRN PRN Reason: Shortness Of Breath/wheezing Amlodipine Besylate (Norvasc) 10 mg PO DAILY [facility] Last Admin: 03/09/17 08:30 Dose: 10 mg Clonidine HCl (Catapres-Tts 3) 0.3 mg TOP Q7D [facility] Diltiazem HCl (Diltiazem) 25 mg IVPUSH Q4H PRN PRN Reason: Tachycardia Last Admin: 03/09/17 02:47 Dose: 25 mg Docusate Sodium (Colace) 100 mg PO BID PRN PRN Reason: Constipation Fentanyl (Duragesic) 25 mcg TRDERM Q72H [facility] Last Admin: 03/09/17 04:33 Dose: 25 mcg Furosemide (Lasix) 40 mg IVPUSH DAILY [facility] Last Admin: 03/09/17 08:32 Dose: 40 mg Glimepiride (Amaryl) 2 mg PO WITHBREAKFAST [facility] Last Admin: 03/09/17 08:29 Dose: 2 mg Insulin Aspart (Novolog) 0 unit SUBCUT TIDAC [facility] PRN Reason: Protocol Last Admin: 03/09/17 07:00 Dose: 2 units Levothyroxine Sodium (Synthroid) 50 mcg PO ACBRK [facility] Last Admin: 03/09/17 06:45 Dose: 50 mcg Magnesium Oxide (Magnesium Oxide) 400 mg PO BID [facility] Last Admin: 03/09/17 08:30 Dose: 400 mg Metformin HCl (Glucophage) 500 mg PO BID [facility] Last Admin: 03/09/17 08:29 Dose: 500 mg Metoprolol Tartrate (Lopressor) 50 mg PO TID@0700,1400,2100 [facility] Last Admin: 03/09/17 07:00 Dose: 50 mg Ondansetron HCl (Zofran Odt) 4 mg PO Q6H PRN PRN Reason: nausea, able to take PO Oxycodone HCl (Oxycodone) 5 mg PO Q4H PRN PRN Reason: Pain (moderate 4-6) Last Admin: 03/06/17 21:00 Dose: 5 mg Paroxetine HCl (Paxil) 40 mg PO DAILY [facility] Last Admin: 03/09/17 08:29 Dose: 40 mg Dulaglutide [ (Trulicity] 0.75 Mg) 0.75 each SUBCUT Q7D [facility] Last Admin: 03/08/17 13:49 Dose: Not Given Breo Ellipta 1 each INH DAILY [facility] Last Admin: 03/09/17 08:42 Dose: 1 each Polyethylene Glycol (Miralax) 17 gm PO DAILY PRN PRN Reason: Constipation Prednisone (Prednisone) 20 mg PO DAILY [facility] Last Admin: 03/09/17 08:32 Dose: 20 mg Rivaroxaban (Xarelto) 15 mg PO BEDTIME [facility] Last Admin: 03/08/17 20:22 Dose: 15 mg Sodium Chloride (Saline Flush) 10 ml FLUSH ASDIRECTED PRN PRN Reason: Keep Vein Open Sodium Chloride (Saline Flush) 2.5 ml FLUSH ASDIRECTED PRN PRN Reason: Keep Vein Open Temazepam (Restoril) 15 mg PO BEDTIME PRN PRN Reason: Sleep Last Admin: 03/06/17 21:01 Dose: 15 mg Discontinued Medications Diltiazem HCl (Diltiazem) 10 mg IVPUSH ONETIME ONE Stop: 03/05/17 13:00 Last Admin: 03/05/17 13:07 Dose: 10 mg Diltiazem HCl (Diltiazem) 10 mg IVPUSH ONETIME ONE Stop: 03/05/17 14:33 Last Admin: 03/05/17 15:21 Dose: 10 mg Diltiazem HCl (Diltiazem) 10 mg IVPUSH Q8H PRN PRN Reason: Tachycardia Last Admin: 03/05/17 20:14 Dose: 10 mg Diltiazem HCl (Diltiazem) 10 mg IVPUSH Q4H PRN PRN Reason: [id number] Last Admin: 03/06/17 09:08 Dose: 10 mg Diltiazem HCl (Cardizem Cd) 180 mg PO DAILY [facility] Last Admin: 03/06/17 08:20 Dose: 180 mg Diltiazem HCl (Cardizem Cd) 120 mg PO DAILY [facility] Last Admin: 03/07/17 11:16 Dose: Not Given Diltiazem HCl (Cardizem) 60 mg PO Q6HR [facility] Enoxaparin Sodium (Lovenox) 40 mg SUBCUT DAILY [facility] Last Admin: 03/08/17 08:10 Dose: 40 mg Furosemide (Lasix) 40 mg IVPUSH ONETIME ONE Stop: 03/07/17 14:54 Last Admin: 03/07/17 15:15 Dose: 40 mg Furosemide (Lasix) 40 mg IVPUSH ONETIME ONE Stop: 03/08/17 16:01 Last Admin: 03/08/17 16:53 Dose: 40 mg Metoprolol Tartrate (Lopressor) 25 mg PO Q6H [facility] Last Admin: 03/08/17 08:11 Dose: 25 mg Metoprolol Tartrate (Lopressor) 50 mg PO TID [facility] Last Admin: 03/08/17 17:07 Dose: Not Given Morphine Sulfate (Morphine) 2 mg IVPUSH Q2H PRN PRN Reason: Pain (severe 7-10) Stop: 03/06/17 15:53 Nebivolol 10 Mg 1 each PO BEDTIME [facility] Last Admin: 03/06/17 21:00 Dose: 1 each Temazepam (Restoril) 15 mg PO BEDTIME [facility] - Exam General: Alert, Oriented HEENT: Pupils Equal, EOMI Lungs: Clear to Auscultation, Normal Respiratory Effort Cardiovascular: Irregular Rhythm, Tachycardia GI/Abdominal Exam: Normal Bowel Sounds Back Exam: Normal Inspection Extremities: Normal Inspection Skin: Warm, Dry, Intact Neurological: No New Focal Deficit Psy/Mental Status: Alert, Normal Affect, Normal Mood - Problem List Review Problem List Initiated/Reviewed/Updated: Yes - Plan Plan:: 56F HTN DM CVA x 3 CAD PCI with persistent afib hx asthma decompensated HF Continue lopressor 50 mg tid. xarelto 15 QD ECHO: EF 45-50% on prednisone chronicallyfor asthma. anticipate discharge tomorrow.
[2017-03-09] MEDS ORDERED: Furosemide 40 MG Tab PO PRN (15:21)
[2017-03-09] MEDS: Digoxin 500 MCG/2 ML Amp IVPUSH SCH ×3 (17:41→21:58)
[2017-03-09] MEDS: Rivaroxaban 15 MG Tab PO SCH (20:41)
[2017-03-09] MEDS: Metoprolol Tartrate 25 MG Tab PO SCH ×2 (20:44→22:18)
[2017-03-10] MEDS: Metoprolol Tartrate 25 MG Tab PO SCH ×2 (05:34→14:14)
[2017-03-10] MEDS: Levothyroxine 50 MCG Tab PO SCH (06:58)
[2017-03-10] MEDS: Insulin Aspart 100 Units/ML 3 ML Pen SUBCUT SCH ×2 (07:28→11:45)
[2017-03-10] MEDS: predniSONE 10 MG Tab PO SCH ×2 (08:35→08:43)
[2017-03-10] MEDS: Glimepiride 2 MG Tab PO SCH (08:40)
[2017-03-10] MEDS: Magnesium Oxide 400 MG Tab PO SCH (08:40)
[2017-03-10] MEDS: metFORMIN 500 MG Tab PO SCH (08:40)
[2017-03-10] MEDS: PARoxetine 20 MG Tab PO SCH (08:41)
[2017-03-10] MEDS: Furosemide 40 MG Tab PO SCH ×2 (08:41→14:14)
[2017-03-10] MEDS: amLODIPine 5 MG Tab PO SCH (08:41)
[2017-03-10] MEDS: BREO ELLIPTA INH SCH (09:41)
--- NOTE | 2017-03-10 13:12 | PCM.PN ---
- General Info Date of Service: 03/10/17 Admission Dx/Problem (Free Text): 56F pelvic fracture persistent afib CAD PCI with decompensated HF, systolic dysfunction. - Review of Systems General: Reports: Weakness HEENT: Reports: No Symptoms Pulmonary: Reports: Shortness of Breath Cardiovascular: Reports: No Symptoms Gastrointestinal: Reports: No Symptoms Genitourinary: Reports: No Symptoms Musculoskeletal: Reports: No Symptoms Skin: Reports: No Symptoms Neurological: Reports: No Symptoms Psychiatric: Reports: No Symptoms - Patient Data Vitals - Most Recent: Last Vital Signs Temp 35.8 C 03/10/17 11:14 Pulse 102 H 03/10/17 11:14 Resp 22 H 03/10/17 11:14 BP 145/93 H 03/10/17 11:14 Pulse Ox 93 L 03/10/17 11:14 Weight - Most Recent: 98.747 kg I&O - Last 24 Hours: Intake & Output 03/09/17 03/10/17 03/10/17 22:59 06:59 14:59 Intake Total 420 150 Output Total 307 Balance 113 150 Lab Results Last 24 Hours: Laboratory Results - last 24 hr 03/09/17 03/09/17 03/10/17 Range/Units 16:57 21:13 04:46 WBC (4.0-11.0) K/uL RBC (4.30-5.90) M/uL Hgb (12.0-16.0) g/dL Hct (36.0-46.0) % MCV (80.0-98.0) fL MCH (27.0-32.0) pg MCHC (31.0-37.0) g/dL RDW Std Deviation (28.0-62.0) fl RDW Coeff of Leia (11.0-15.0) % Plt Count (150-400) K/uL MPV (7.40-12.00) fL Neut % (Auto) (48.0-80.0) % Lymph % (Auto) (16.0-40.0) % [place] % (Auto) (0.0-15.0) % Eos % (Auto) (0.0-7.0) % Baso % (Auto) (0.0-1.5) % Neut # (Auto) (1.4-5.7) K/uL Lymph # (Auto) (0.6-2.4) K/uL [place] # (Auto) (0.0-0.8) K/uL Eos # (Auto) (0.0-0.7) K/uL Baso # (Auto) (0.0-0.1) K/uL Nucleated RBC % /100WBC Nucleated RBCs # K/uL Sodium 145 (136-146) mmol/L Potassium 3.7 (3.5-5.1) mmol/L Chloride 100 (98-110) mmol/L Carbon Dioxide 35 H (21-31) mmol/L BUN 45 H (6.0-23.0) mg/dL Creatinine 1.3 (0.6-1.5) mg/dL Est Cr Clr Drug Dosing 40.73 mL/min Estimated GFR (MDRD) 42.1 ml/min Glucose 207 H (60-110) mg/dL POC Glucose 265 H 382 H (60-110) mg/dL Calcium 9.3 (8.8-10.8) mg/dL Magnesium 1.5 (1.5-2.3) mEq/L 03/10/17 03/10/17 03/10/17 Range/Units 04:46 06:23 11:35 WBC 14.71 H (4.0-11.0) K/uL RBC 4.12 L (4.30-5.90) M/uL Hgb 11.7 L (12.0-16.0) g/dL Hct 38.4 (36.0-46.0) % MCV 93.2 (80.0-98.0) fL MCH 28.4 (27.0-32.0) pg MCHC 30.5 L (31.0-37.0) g/dL RDW Std Deviation 56.0 (28.0-62.0) fl RDW Coeff of Leia 16 H (11.0-15.0) % Plt Count 408 H (150-400) K/uL MPV 11.50 (7.40-12.00) fL Neut % (Auto) 80.4 H (48.0-80.0) % Lymph % (Auto) 11.6 L (16.0-40.0) % [place] % (Auto) 7.5 (0.0-15.0) % Eos % (Auto) 0.4 (0.0-7.0) % Baso % (Auto) 0.1 (0.0-1.5) % Neut # (Auto) 11.8 H (1.4-5.7) K/uL Lymph # (Auto) 1.7 (0.6-2.4) K/uL [place] # (Auto) 1.1 H (0.0-0.8) K/uL Eos # (Auto) 0.1 (0.0-0.7) K/uL Baso # (Auto) 0.0 (0.0-0.1) K/uL Nucleated RBC % 0.0 /100WBC Nucleated RBCs # 0 K/uL Sodium (136-146) mmol/L Potassium (3.5-5.1) mmol/L Chloride (98-110) mmol/L Carbon Dioxide (21-31) mmol/L BUN (6.0-23.0) mg/dL Creatinine (0.6-1.5) mg/dL Est Cr Clr Drug Dosing mL/min Estimated GFR (MDRD) ml/min Glucose (60-110) mg/dL POC Glucose 178 H 274 H (60-110) mg/dL Calcium (8.8-10.8) mg/dL Magnesium (1.5-2.3) mEq/L Med Orders - Current: Current Medications Acetaminophen (Tylenol) 650 mg PO Q4H PRN PRN Reason: Pain (Mild 1-3)/fever Albuterol/Ipratropium (Duoneb 3.0-0.5 Mg/3 Ml) 3 ml NEB Q4HRRT PRN PRN Reason: Shortness Of Breath/wheezing Amlodipine Besylate (Norvasc) 10 mg PO DAILY [facility] Last Admin: 03/10/17 08:41 Dose: 10 mg Clonidine HCl (Catapres-Tts 3) 0.3 mg TOP Q7D [facility] Digoxin (Lanoxin) 250 mcg PO DAILY [facility] Diltiazem HCl (Diltiazem) 25 mg IVPUSH Q4H PRN PRN Reason: Tachycardia Last Admin: 03/09/17 16:18 Dose: 25 mg Docusate Sodium (Colace) 100 mg PO BID PRN PRN Reason: Constipation Fentanyl (Duragesic) 25 mcg TRDERM Q72H [facility] Last Admin: 03/09/17 04:33 Dose: 25 mcg Furosemide (Lasix) 40 mg PO BIDDIURETIC [facility] Last Admin: 03/10/17 08:41 Dose: 40 mg Glimepiride (Amaryl) 2 mg PO WITHBREAKFAST [facility] Last Admin: 03/10/17 08:40 Dose: 2 mg Insulin Aspart (Novolog) 0 unit SUBCUT TIDAC [facility] PRN Reason: Protocol Last Admin: 03/10/17 11:45 Dose: 6 units Levothyroxine Sodium (Synthroid) 50 mcg PO ACBRK [facility] Last Admin: 03/10/17 06:58 Dose: 50 mcg Magnesium Oxide (Magnesium Oxide) 400 mg PO BID [facility] Last Admin: 03/10/17 08:40 Dose: 400 mg Metformin HCl (Glucophage) 500 mg PO BID [facility] Last Admin: 03/10/17 08:40 Dose: 500 mg Metoprolol Tartrate (Lopressor) 75 mg PO TID [facility] Last Admin: 03/10/17 05:34 Dose: 75 mg Ondansetron HCl (Zofran Odt) 4 mg PO Q6H PRN PRN Reason: nausea, able to take PO Oxycodone HCl (Oxycodone) 5 mg PO Q4H PRN PRN Reason: Pain (moderate 4-6) Last Admin: 03/06/17 21:00 Dose: 5 mg Paroxetine HCl (Paxil) 40 mg PO DAILY [facility] Last Admin: 03/10/17 08:41 Dose: 40 mg Dulaglutide [ (Trulicity] 0.75 Mg) 0.75 each SUBCUT Q7D [facility] Last Admin: 03/08/17 13:49 Dose: Not Given Breo Ellipta 1 each INH DAILY [facility] Last Admin: 03/10/17 09:41 Dose: 1 each Polyethylene Glycol (Miralax) 17 gm PO DAILY PRN PRN Reason: Constipation Prednisone (Prednisone) 20 mg PO DAILY [facility] Last Admin: 03/10/17 08:43 Dose: 20 mg Rivaroxaban (Xarelto) 15 mg PO BEDTIME [facility] Last Admin: 03/09/17 20:41 Dose: 15 mg Sodium Chloride (Saline Flush) 10 ml FLUSH ASDIRECTED PRN PRN Reason: Keep Vein Open Sodium Chloride (Saline Flush) 2.5 ml FLUSH ASDIRECTED PRN PRN Reason: Keep Vein Open Temazepam (Restoril) 15 mg PO BEDTIME PRN PRN Reason: Sleep Last Admin: 03/06/17 21:01 Dose: 15 mg Discontinued Medications Digoxin (Lanoxin) 250 mcg IVPUSH Q2H ADRIAN Stop: 03/09/17 21:31 Last Admin: 03/09/17 21:58 Dose: 250 mcg Diltiazem HCl (Diltiazem) 10 mg IVPUSH ONETIME ONE Stop: 03/05/17 13:00 Last Admin: 03/05/17 13:07 Dose: 10 mg Diltiazem HCl (Diltiazem) 10 mg IVPUSH ONETIME ONE Stop: 03/05/17 14:33 Last Admin: 03/05/17 15:21 Dose: 10 mg Diltiazem HCl (Diltiazem) 10 mg IVPUSH Q8H PRN PRN Reason: Tachycardia Last Admin: 03/05/17 20:14 Dose: 10 mg Diltiazem HCl (Diltiazem) 10 mg IVPUSH Q4H PRN PRN Reason: [id number] Last Admin: 03/06/17 09:08 Dose: 10 mg Diltiazem HCl (Cardizem Cd) 180 mg PO DAILY [facility] Last Admin: 03/06/17 08:20 Dose: 180 mg Diltiazem HCl (Cardizem Cd) 120 mg PO DAILY [facility] Last Admin: 03/07/17 11:16 Dose: Not Given Diltiazem HCl (Cardizem) 60 mg PO Q6HR [facility] Enoxaparin Sodium (Lovenox) 40 mg SUBCUT DAILY [facility] Last Admin: 03/08/17 08:10 Dose: 40 mg Furosemide (Lasix) 40 mg IVPUSH DAILY [facility] Last Admin: 03/09/17 08:32 Dose: 40 mg Furosemide (Lasix) 40 mg IVPUSH ONETIME ONE Stop: 03/07/17 14:54 Last Admin: 03/07/17 15:15 Dose: 40 mg Furosemide (Lasix) 40 mg IVPUSH ONETIME ONE Stop: 03/08/17 16:01 Last Admin: 03/08/17 16:53 Dose: 40 mg Furosemide (Lasix) 40 mg PO BIDDIURETIC PRN PRN Reason: Shortness of Breath Metoprolol Tartrate (Lopressor) 25 mg PO Q6H [facility] Last Admin: 03/08/17 08:11 Dose: 25 mg Metoprolol Tartrate (Lopressor) 50 mg PO TID [facility] Last Admin: 03/08/17 17:07 Dose: Not Given Metoprolol Tartrate (Lopressor) 50 mg PO TID@0700,1400,2100 [facility] Last Admin: 03/09/17 13:22 Dose: 50 mg Morphine Sulfate (Morphine) 2 mg IVPUSH Q2H PRN PRN Reason: Pain (severe 7-10) Stop: 03/06/17 15:53 Nebivolol 10 Mg 1 each PO BEDTIME [facility] Last Admin: 03/06/17 21:00 Dose: 1 each Temazepam (Restoril) 15 mg PO BEDTIME [facility] - Exam General: Alert, Oriented HEENT: Pupils Equal Neck: JVD Lungs: Rales Cardiovascular: Irregular Rhythm GI/Abdominal Exam: Normal Bowel Sounds Back Exam: Normal Inspection Extremities: Pedal Edema Skin: Warm Wound/Incisions: Drainage Neurological: Other (slurred speech) Psy/Mental Status: Alert, Normal Affect, Normal Mood EKG INTERPRETATION Rhythm: A-Fib - Problem List Review Problem List Initiated/Reviewed/Updated: Yes - My Orders Last 24 Hours: My Active Orders 03/09/17 21:00 Metoprolol Tartrate [Lopressor] 75 mg PO TID 03/10/17 13:15 Digoxin [Lanoxin] 250 mcg PO DAILY - Plan Plan:: 56F HTN DM CVA x 3 CAD PCI with persistent afib hx asthma decompensated HF 1. afib/ decompensated systolic HF, her EF looked declined, reported 45-50%, probably lower than that, however it was not well visualized. She probably need stress test as outpatient. HR better controlled today will continue metoprolol 75 TID, digoxin 250 daily, lasix 40 po BID, continue xarelto 15 daily [id number] = 6 - lasix 40 po BID, - limit fluid intake 1500 - continue metoprolol 75 TID xarelto 15 digoxin 250 daily
[2017-03-10] MEDS ORDERED: Digoxin 250 MCG Tab PO SCH (13:15)
[2017-03-10 14:15] VITALS: BP 130/75
--- NOTE | 2017-03-10 14:34 | ECHO ---
EXAM DATE: 03/08/17 PATIENT'S AGE: 56 The echocardiogram report can be seen in this patient's EMR (Electronic Medical Record) in the Reports section. The report has also been scanned into PACS. JOAO
--- NOTE | 2017-03-10 15:15 | PCM.DCSUM1 ---
<Michaela Lam - Last Filed: 03/11/17 14:40> Discharge Summary - Hospital Course Free Text/Narrative:: 56 yo female with history of CVA, CAD s/p PCI, DM, HTN, asplenia admitted from [facility] for SOB and A-fib with RVR. She states she has gained weight and feels very sob. She thought to have her asthma was worsening and she had extreme difficulty in breathing. The patient felt that she was very short of breath and upon arrival in the emergency department the patient was noted to have an oxygen saturation of 92% on 3 L oxygen via nasal cannula. The patient says that she does not normally use oxygen. The patient was also noted to be in atrial fibrillation with rapid ventricular response rate of 120 bpm. The patient has been complaining of swelling all over her body and she feels like she is retaining fluid. Patient has denied any dizziness or lightheadedness. She's been extremely short of breath. The patient has denied any pain. She's had no nausea or vomiting. cardiology was consulted and started her on IV lasix, and xeralto. Her echo showed some decompensated heart failure with decline of EF. Her lower extremity edema has improved. She had PT for wound dressing changes in the hospital with aquesol on right forefoot. Her Bystolic was discontinued. SHe was discharged with asa 81 mg QD, lopressor 75 mg po TID, xarelto 15 mg Qd, Lasix 40 mg po bid, digoxin 250 QD. She is to follow up Dr. gibson. - Discharge Data Discharge Date: 03/10/17 Discharge Disposition: DC/Tfer to [facility] 03 Condition: Stable - Patient Instructions Diet: Heart Healthy Diet Activity: As Tolerated Activity, Other: PT/OT for stregthening and ambulation Driving: Do Not Drive Showering/Bathing: May Shower Notify Provider of: Fever, Increased Pain, Swelling and Redness, Drainage, Nausea and/or Vomiting Other/Special Instructions: OT consult for compression wraps in both legs. oxygen prn. dressing changes of the right foot ( refer to PT notes) - Discharge Plan Prescriptions/Med Rec: Aspirin [Adult Low Dose Aspirin EC] 81 mg PO DAILY 30 Days Digoxin [Digox] 250 mcg PO DAILY #30 tablet Furosemide [Lasix] 40 mg PO BID #60 tablet Metoprolol Tartrate [Lopressor] 75 mg PO TID #90 tablet Rivaroxaban [Xarelto] 15 mg PO DAILY #30 tablet Home Medications: Home Meds Ascorbic Acid [Vitamin C] 1,000 mg PO DAILY 02/18/15 [History] Levothyroxine [Synthroid] 50 mcg PO DAILY 02/18/15 [History] Multivit-Min/FA/Lycopene/Lut [Complete Multi 50+] 1 tab PO DAILY 02/18/15 [ History] amLODIPine Besylate [Amlodipine Besylate] 10 mg PO DAILY 02/18/15 [History] atorvaSTATin [Lipitor] 40 mg PO DAILY 02/18/15 [History] metFORMIN [Glucophage] 500 mg PO BID 02/18/15 [History] Albuterol Sulfate [Proair Hfa] 2 puff IH QID PRN 10/16/16 [History] Dulaglutide [Trulicity] 0.75 mg SQ TU@0900 10/16/16 [History] Fluticasone/Vilanterol [Breo Ellipta 100-25 MCG Inhalation Kit] 1 each IH DAILY 10/16/16 [History] Glimepiride [Amaryl] 2 mg PO WITHBREAKFAST 10/16/16 [History] Insulin Glarg,Human.Rec.Analog [LantUS Solostar] 22 units SUBCUT BEDTIME [History] Mirtazapine 30 mg PO BEDTIME 10/16/16 [History] Naproxen Sodium [Aleve] 220 mg PO BID PRN 10/16/16 [History] PARoxetine HCl [Paroxetine HCl] 40 mg PO DAILY 10/16/16 [History] cloNIDine 0.3 mg TD FR@0900 10/16/16 [History] Albuterol/Ipratropium [DuoNeb 3.0-0.5 MG/3 ML] 3 ml NEB Q4HRRT PRN #10 neb 10/21 [Rx] Bisacodyl [Dulcolax] 10 mg RECTAL DAILY PRN #10 supp 10/21/16 [Rx] Insulin Aspart [NovoLOG] See Protocol SUBCUT ACBED #1 pen 10/21/16 [Rx] Polyethylene Glycol 3350 [MiraLAX] 17 gm PO DAILY PRN #10 packet 10/21/16 [Rx] predniSONE 20 mg PO DAILY #60 tablet 10/21/16 [Rx] Acetaminophen 500 mg PO Q4H PRN 03/05/17 [History] Ferrous Sulfate 325 mg PO DAILY 03/05/17 [History] fentaNYL [Duragesic] 25 mcg TRDERM Q72H 03/05/17 [History] Mag Hydrox/Al Hydrox/Simeth [Maalox Maximum Strength Susp] 30 ml PO ASDIRECTED PRN 03/07/17 [History] Pe/Shark Liver/Gly/Pet,Wh [Hemorrhoidal Cream] 1 applic TOP ASDIRECTED PRN 03/07 [History] Temazepam [Restoril] 15 mg PO BEDTIME 03/07/17 [History] Witch Niya [Tucks] 1 pad TOP ASDIRECTED PRN 03/07/17 [History] Aspirin [Adult Low Dose Aspirin EC] 81 mg PO DAILY 30 Days 03/10/17 [Rx] Digoxin [Digox] 250 mcg PO DAILY #30 tablet 03/10/17 [Rx] Furosemide [Lasix] 40 mg PO BID #60 tablet 03/10/17 [Rx] Metoprolol Tartrate [Lopressor] 75 mg PO TID #90 tablet 03/10/17 [Rx] Rivaroxaban [Xarelto] 15 mg PO DAILY #30 tablet 03/10/17 [Rx] predniSONE 20 mg PO DAILY tablet 03/10/17 [Rx] Referrals: Dean Gibson MD [Physician] - 03/10/17 (On his next [place] rounds.) - General Info Date of Service: 03/10/17 Functional Status: Reports: Pain Controlled, Tolerating Diet, Ambulating, Urinating - Review of Systems General: Reports: No Symptoms HEENT: Reports: No Symptoms Pulmonary: Reports: No Symptoms Cardiovascular: Reports: No Symptoms Gastrointestinal: Reports: No Symptoms Genitourinary: Reports: No Symptoms Musculoskeletal: Reports: No Symptoms Skin: Reports: No Symptoms Neurological: Reports: No Symptoms Psychiatric: Reports: No Symptoms - Patient Data Vitals - Most Recent: Last Vital Signs Temp 96.4 F 03/10/17 11:14 Pulse 96 03/10/17 14:14 Resp 22 H 03/10/17 11:14 BP 130/75 03/10/17 14:14 Pulse Ox 93 L 03/10/17 11:14 Weight - Most Recent: 98.747 kg I&O - Last 24 hours: Intake & Output 07/27/17 07/27/17 07/27/17 06:59 14:59 22:59 Intake Total 150 Balance 150 Lab Results - Last 24 hrs: Laboratory Results - last 24 hr 03/09/17 03/09/17 03/10/17 Range/Units 16:57 21:13 04:46 WBC (4.0-11.0) K/uL RBC (4.30-5.90) M/uL Hgb (12.0-16.0) g/dL Hct (36.0-46.0) % MCV (80.0-98.0) fL MCH (27.0-32.0) pg MCHC (31.0-37.0) g/dL RDW Std Deviation (28.0-62.0) fl RDW Coeff of Leia (11.0-15.0) % Plt Count (150-400) K/uL MPV (7.40-12.00) fL Neut % (Auto) (48.0-80.0) % Lymph % (Auto) (16.0-40.0) % [place] % (Auto) (0.0-15.0) % Eos % (Auto) (0.0-7.0) % Baso % (Auto) (0.0-1.5) % Neut # (Auto) (1.4-5.7) K/uL Lymph # (Auto) (0.6-2.4) K/uL [place] # (Auto) (0.0-0.8) K/uL Eos # (Auto) (0.0-0.7) K/uL Baso # (Auto) (0.0-0.1) K/uL Nucleated RBC % /100WBC Nucleated RBCs # K/uL Sodium 145 (136-146) mmol/L Potassium 3.7 (3.5-5.1) mmol/L Chloride 100 (98-110) mmol/L Carbon Dioxide 35 H (21-31) mmol/L BUN 45 H (6.0-23.0) mg/dL Creatinine 1.3 (0.6-1.5) mg/dL Est Cr Clr Drug Dosing 40.73 mL/min Estimated GFR (MDRD) 42.1 ml/min Glucose 207 H (60-110) mg/dL POC Glucose 265 H 382 H (60-110) mg/dL Calcium 9.3 (8.8-10.8) mg/dL Magnesium 1.5 (1.5-2.3) mEq/L 03/10/17 03/10/17 03/10/17 Range/Units 04:46 06:23 11:35 WBC 14.71 H (4.0-11.0) K/uL RBC 4.12 L (4.30-5.90) M/uL Hgb 11.7 L (12.0-16.0) g/dL Hct 38.4 (36.0-46.0) % MCV 93.2 (80.0-98.0) fL MCH 28.4 (27.0-32.0) pg MCHC 30.5 L (31.0-37.0) g/dL RDW Std Deviation 56.0 (28.0-62.0) fl RDW Coeff of Leia 16 H (11.0-15.0) % Plt Count 408 H (150-400) K/uL MPV 11.50 (7.40-12.00) fL Neut % (Auto) 80.4 H (48.0-80.0) % Lymph % (Auto) 11.6 L (16.0-40.0) % [place] % (Auto) 7.5 (0.0-15.0) % Eos % (Auto) 0.4 (0.0-7.0) % Baso % (Auto) 0.1 (0.0-1.5) % Neut # (Auto) 11.8 H (1.4-5.7) K/uL Lymph # (Auto) 1.7 (0.6-2.4) K/uL [place] # (Auto) 1.1 H (0.0-0.8) K/uL Eos # (Auto) 0.1 (0.0-0.7) K/uL Baso # (Auto) 0.0 (0.0-0.1) K/uL Nucleated RBC % 0.0 /100WBC Nucleated RBCs # 0 K/uL Sodium (136-146) mmol/L Potassium (3.5-5.1) mmol/L Chloride (98-110) mmol/L Carbon Dioxide (21-31) mmol/L BUN (6.0-23.0) mg/dL Creatinine (0.6-1.5) mg/dL Est Cr Clr Drug Dosing mL/min Estimated GFR (MDRD) ml/min Glucose (60-110) mg/dL POC Glucose 178 H 274 H (60-110) mg/dL Calcium (8.8-10.8) mg/dL Magnesium (1.5-2.3) mEq/L Med Orders - Current: Current Medications Acetaminophen (Tylenol) 650 mg PO Q4H PRN PRN Reason: Pain (Mild 1-3)/fever Albuterol/Ipratropium (Duoneb 3.0-0.5 Mg/3 Ml) 3 ml NEB Q4HRRT PRN PRN Reason: Shortness Of Breath/wheezing Amlodipine Besylate (Norvasc) 10 mg PO DAILY [facility] Last Admin: 03/10/17 08:41 Dose: 10 mg Clonidine HCl (Catapres-Tts 3) 0.3 mg TOP Q7D [facility] Digoxin (Lanoxin) 250 mcg PO DAILY [facility] Last Admin: 03/10/17 14:13 Dose: 250 mcg Diltiazem HCl (Diltiazem) 25 mg IVPUSH Q4H PRN PRN Reason: Tachycardia Last Admin: 03/09/17 16:18 Dose: 25 mg Docusate Sodium (Colace) 100 mg PO BID PRN PRN Reason: Constipation Fentanyl (Duragesic) 25 mcg TRDERM Q72H [facility] Last Admin: 03/09/17 04:33 Dose: 25 mcg Furosemide (Lasix) 40 mg PO BIDDIURETIC [facility] Last Admin: 03/10/17 14:14 Dose: 40 mg Glimepiride (Amaryl) 2 mg PO WITHBREAKFAST [facility] Last Admin: 03/10/17 08:40 Dose: 2 mg Insulin Aspart (Novolog) 0 unit SUBCUT TIDAC [facility] PRN Reason: Protocol Last Admin: 03/10/17 11:45 Dose: 6 units Levothyroxine Sodium (Synthroid) 50 mcg PO ACBRK [facility] Last Admin: 03/10/17 06:58 Dose: 50 mcg Magnesium Oxide (Magnesium Oxide) 400 mg PO BID [facility] Last Admin: 03/10/17 08:40 Dose: 400 mg Metformin HCl (Glucophage) 500 mg PO BID [facility] Last Admin: 03/10/17 08:40 Dose: 500 mg Metoprolol Tartrate (Lopressor) 75 mg PO TID [facility] Last Admin: 03/10/17 14:14 Dose: 75 mg Ondansetron HCl (Zofran Odt) 4 mg PO Q6H PRN PRN Reason: nausea, able to take PO Oxycodone HCl (Oxycodone) 5 mg PO Q4H PRN PRN Reason: Pain (moderate 4-6) Last Admin: 03/06/17 21:00 Dose: 5 mg Paroxetine HCl (Paxil) 40 mg PO DAILY [facility] Last Admin: 03/10/17 08:41 Dose: 40 mg Dulaglutide [ (Trulicity] 0.75 Mg) 0.75 each SUBCUT Q7D [facility] Last Admin: 03/08/17 13:49 Dose: Not Given Breo Ellipta 1 each INH DAILY [facility] Last Admin: 03/10/17 09:41 Dose: 1 each Polyethylene Glycol (Miralax) 17 gm PO DAILY PRN PRN Reason: Constipation Prednisone (Prednisone) 20 mg PO DAILY [facility] Last Admin: 03/10/17 08:43 Dose: 20 mg Rivaroxaban (Xarelto) 15 mg PO BEDTIME [facility] Last Admin: 03/09/17 20:41 Dose: 15 mg Sodium Chloride (Saline Flush) 10 ml FLUSH ASDIRECTED PRN PRN Reason: Keep Vein Open Sodium Chloride (Saline Flush) 2.5 ml FLUSH ASDIRECTED PRN PRN Reason: Keep Vein Open Temazepam (Restoril) 15 mg PO BEDTIME PRN PRN Reason: Sleep Last Admin: 03/06/17 21:01 Dose: 15 mg Discontinued Medications Digoxin (Lanoxin) 250 mcg IVPUSH Q2H [facility] Stop: 03/09/17 21:31 Last Admin: 03/09/17 21:58 Dose: 250 mcg Diltiazem HCl (Diltiazem) 10 mg IVPUSH ONETIME ONE Stop: 03/05/17 13:00 Last Admin: 03/05/17 13:07 Dose: 10 mg Diltiazem HCl (Diltiazem) 10 mg IVPUSH ONETIME ONE Stop: 03/05/17 14:33 Last Admin: 03/05/17 15:21 Dose: 10 mg Diltiazem HCl (Diltiazem) 10 mg IVPUSH Q8H PRN PRN Reason: Tachycardia Last Admin: 03/05/17 20:14 Dose: 10 mg Diltiazem HCl (Diltiazem) 10 mg IVPUSH Q4H PRN PRN Reason: [id number] Last Admin: 03/06/17 09:08 Dose: 10 mg Diltiazem HCl (Cardizem Cd) 180 mg PO DAILY [facility] Last Admin: 03/06/17 08:20 Dose: 180 mg Diltiazem HCl (Cardizem Cd) 120 mg PO DAILY [facility] Last Admin: 03/07/17 11:16 Dose: Not Given Diltiazem HCl (Cardizem) 60 mg PO Q6HR [facility] Enoxaparin Sodium (Lovenox) 40 mg SUBCUT DAILY [facility] Last Admin: 03/08/17 08:10 Dose: 40 mg Furosemide (Lasix) 40 mg IVPUSH DAILY [facility] Last Admin: 03/09/17 08:32 Dose: 40 mg Furosemide (Lasix) 40 mg IVPUSH ONETIME ONE Stop: 03/07/17 14:54 Last Admin: 03/07/17 15:15 Dose: 40 mg Furosemide (Lasix) 40 mg IVPUSH ONETIME ONE Stop: 03/08/17 16:01 Last Admin: 03/08/17 16:53 Dose: 40 mg Furosemide (Lasix) 40 mg PO BIDDIURETIC PRN PRN Reason: Shortness of Breath Metoprolol Tartrate (Lopressor) 25 mg PO Q6H [facility] Last Admin: 03/08/17 08:11 Dose: 25 mg Metoprolol Tartrate (Lopressor) 50 mg PO TID [facility] Last Admin: 03/08/17 17:07 Dose: Not Given Metoprolol Tartrate (Lopressor) 50 mg PO TID@0700,1400,2100 [facility] Last Admin: 03/09/17 13:22 Dose: 50 mg Morphine Sulfate (Morphine) 2 mg IVPUSH Q2H PRN PRN Reason: Pain (severe 7-10) Stop: 03/06/17 15:53 Nebivolol 10 Mg 1 each PO BEDTIME [facility] Last Admin: 03/06/17 21:00 Dose: 1 each Temazepam (Restoril) 15 mg PO BEDTIME [facility] - Exam General: Reports: Alert, Oriented HEENT: Reports: Pupils Equal, EOMI Neck: Reports: Supple, Trachea Midline Lungs: Reports: Clear to Auscultation, Normal Respiratory Effort Cardiovascular: Reports: Regular Rate, Regular Rhythm GI/Abdominal Exam: Normal Bowel Sounds, Soft Extremities: Pedal Edema (trace) Skin: Reports: Warm, Dry, Intact Neurological: Reports: No New Focal Deficit Psy/Mental Status: Reports: Alert, Normal Affect, Normal Mood *Q Meaningful Use (DIS) - VTE *Q VTE Criteria *Q: VTE Mechanical Contraindications *Q: At Risk for Falls - Stroke *Q Stroke Criteria *Q: - AMI *Q AMI Criteria *Q: <Franco Franks - Last Filed: 03/15/17 13:07> - Patient Data Vitals - Most Recent: Last Vital Signs Temp 35.8 C 03/10/17 11:14 Pulse 96 03/10/17 14:14 Resp 22 H 03/10/17 11:14 BP 130/75 03/10/17 14:14 Pulse Ox 93 L 03/10/17 11:14 Med Orders - Current: Current Medications Discontinued Medications Acetaminophen (Tylenol) 650 mg PO Q4H PRN PRN Reason: Pain (Mild 1-3)/fever Albuterol/Ipratropium (Duoneb 3.0-0.5 Mg/3 Ml) 3 ml NEB Q4HRRT PRN PRN Reason: Shortness Of Breath/wheezing Amlodipine Besylate (Norvasc) 10 mg PO DAILY [facility] Last Admin: 03/10/17 08:41 Dose: 10 mg Clonidine HCl (Catapres-Tts 3) 0.3 mg TOP Q7D [facility] Digoxin (Lanoxin) 250 mcg IVPUSH Q2H [facility] Stop: 03/09/17 21:31 Last Admin: 03/09/17 21:58 Dose: 250 mcg Digoxin (Lanoxin) 250 mcg PO DAILY [facility] Last Admin: 03/10/17 14:13 Dose: 250 mcg Diltiazem HCl (Diltiazem) 10 mg IVPUSH ONETIME ONE Stop: 03/05/17 13:00 Last Admin: 03/05/17 13:07 Dose: 10 mg Diltiazem HCl (Diltiazem) 10 mg IVPUSH ONETIME ONE Stop: 03/05/17 14:33 Last Admin: 03/05/17 15:21 Dose: 10 mg Diltiazem HCl (Diltiazem) 10 mg IVPUSH Q8H PRN PRN Reason: Tachycardia Last Admin: 03/05/17 20:14 Dose: 10 mg Diltiazem HCl (Diltiazem) 10 mg IVPUSH Q4H PRN PRN Reason: PM=[id number] Last Admin: 03/06/17 09:08 Dose: 10 mg Diltiazem HCl (Cardizem Cd) 180 mg PO DAILY [facility] Last Admin: 03/06/17 08:20 Dose: 180 mg Diltiazem HCl (Diltiazem) 25 mg IVPUSH Q4H PRN PRN Reason: Tachycardia Last Admin: 03/09/17 16:18 Dose: 25 mg Diltiazem HCl (Cardizem Cd) 120 mg PO DAILY [facility] Last Admin: 03/07/17 11:16 Dose: Not Given Diltiazem HCl (Cardizem) 60 mg PO Q6HR [facility] Docusate Sodium (Colace) 100 mg PO BID PRN PRN Reason: Constipation Enoxaparin Sodium (Lovenox) 40 mg SUBCUT DAILY [facility] Last Admin: 03/08/17 08:10 Dose: 40 mg Fentanyl (Duragesic) 25 mcg TRDERM Q72H [facility] Last Admin: 03/09/17 04:33 Dose: 25 mcg Furosemide (Lasix) 40 mg IVPUSH DAILY [facility] Last Admin: 03/09/17 08:32 Dose: 40 mg Furosemide (Lasix) 40 mg IVPUSH ONETIME ONE Stop: 03/07/17 14:54 Last Admin: 03/07/17 15:15 Dose: 40 mg Furosemide (Lasix) 40 mg IVPUSH ONETIME ONE Stop: 03/08/17 16:01 Last Admin: 03/08/17 16:53 Dose: 40 mg Furosemide (Lasix) 40 mg PO BIDDIURETIC PRN PRN Reason: Shortness of Breath Furosemide (Lasix) 40 mg PO BIDDIURETIC [facility] Last Admin: 03/10/17 14:14 Dose: 40 mg Glimepiride (Amaryl) 2 mg PO WITHBREAKFAST [facility] Last Admin: 03/10/17 08:40 Dose: 2 mg Insulin Aspart (Novolog) 0 unit SUBCUT TIDAC [facility] PRN Reason: Protocol Last Admin: 03/10/17 11:45 Dose: 6 units Levothyroxine Sodium (Synthroid) 50 mcg PO ACBRK [facility] Last Admin: 03/10/17 06:58 Dose: 50 mcg Magnesium Oxide (Magnesium Oxide) 400 mg PO BID [facility] Last Admin: 03/10/17 08:40 Dose: 400 mg Metformin HCl (Glucophage) 500 mg PO BID [facility] Last Admin: 03/10/17 08:40 Dose: 500 mg Metoprolol Tartrate (Lopressor) 25 mg PO Q6H [facility] Last Admin: 03/08/17 08:11 Dose: 25 mg Metoprolol Tartrate (Lopressor) 50 mg PO TID [facility] Last Admin: 03/08/17 17:07 Dose: Not Given Metoprolol Tartrate (Lopressor) 50 mg PO TID@0700,1400,2100 [facility] Last Admin: 03/09/17 13:22 Dose: 50 mg Metoprolol Tartrate (Lopressor) 75 mg PO TID [facility] Last Admin: 03/10/17 14:14 Dose: 75 mg Morphine Sulfate (Morphine) 2 mg IVPUSH Q2H PRN PRN Reason: Pain (severe 7-10) Stop: 03/06/17 15:53 Ondansetron HCl (Zofran Odt) 4 mg PO Q6H PRN PRN Reason: nausea, able to take PO Oxycodone HCl (Oxycodone) 5 mg PO Q4H PRN PRN Reason: Pain (moderate 4-6) Last Admin: 03/06/17 21:00 Dose: 5 mg Paroxetine HCl (Paxil) 40 mg PO DAILY [facility] Last Admin: 03/10/17 08:41 Dose: 40 mg Dulaglutide [ (Trulicity] 0.75 Mg) 0.75 each SUBCUT Q7D [facility] Last Admin: 03/08/17 13:49 Dose: Not Given Nebivolol 10 Mg 1 each PO BEDTIME [facility] Last Admin: 03/06/17 21:00 Dose: 1 each Breo Ellipta 1 each INH DAILY [facility] Last Admin: 03/10/17 09:41 Dose: 1 each Polyethylene Glycol (Miralax) 17 gm PO DAILY PRN PRN Reason: Constipation Prednisone (Prednisone) 20 mg PO DAILY [facility] Last Admin: 03/10/17 08:43 Dose: 20 mg Rivaroxaban (Xarelto) 15 mg PO BEDTIME [facility] Last Admin: 03/09/17 20:41 Dose: 15 mg Sodium Chloride (Saline Flush) 10 ml FLUSH ASDIRECTED PRN PRN Reason: Keep Vein Open Sodium Chloride (Saline Flush) 2.5 ml FLUSH ASDIRECTED PRN PRN Reason: Keep Vein Open Temazepam (Restoril) 15 mg PO BEDTIME PRN PRN Reason: Sleep Last Admin: 03/06/17 21:01 Dose: 15 mg Temazepam (Restoril) 15 mg PO BEDTIME [facility] *Q Meaningful Use (DIS) - VTE *Q VTE Criteria *Q: - Stroke *Q Stroke Criteria *Q: - AMI *Q AMI Criteria *Q: - Free Text/Narrative Note: I have examined the patient. I have discussed findings and treatment plan with resident. I agree with the assessment and plan outline in the following resident's note.
[2017-03-11] MEDS ORDERED: cloNIDine 0.3 MG/Day Transdermal Patch TOP SCH (12:00)
== END 2017-03-10 14:30 | disposition home or self-care (01) | DRG 309 ==
LOC: MW.ED 12:25 → MW.MS 14:58 → UNDOADMOB 14:58 → MW.MS 15:27 → UNDOADMOB 03-08 10:15 → MW.MS 03-08 10:15 → OBSVTOIN 03-08 10:15 → INTOOBSV 03-08 10:15 → OBSVTOIN 03-08 14:38 → INTOOBSV 03-08 14:38 → MW.MS 03-08 14:38 → UNDODISIN 03-10 14:30
PROVIDERS: ADMIT Internal Medicine; ATTEND Internal Medicine
DX: I48.91 Unspecified atrial fibrillation (principal); E78.00 Pure hypercholesterolemia, unspecified; I10 Essential (primary) hypertension; Q89.01 Asplenia (congenital); I50.20 Unspecified systolic (congestive) heart failure; F32.9 Major depressive disorder, single episode, unspecified; E11.9 Type 2 diabetes mellitus without complications; E03.9 Hypothyroidism, unspecified; J45.909 Unspecified asthma, uncomplicated; R60.1 Generalized edema; I12.9 Hypertensive chronic kidney disease with stage 1 through stage 4 chronic kidney disease, or unspecified chronic kidney disease; N18.2 Chronic kidney disease, stage 2 (mild); R09.02 Hypoxemia; E66.01 Morbid (severe) obesity due to excess calories; Z88.8 Allergy status to other drugs, medicaments and biological substances; Z79.899 Other long term (current) drug therapy; Z79.4 Long term (current) use of insulin; Z79.82 Long term (current) use of aspirin; Z86.73 Personal history of transient ischemic attack (TIA), and cerebral infarction without residual deficits; Z68.29 Body mass index [BMI] 29.0-29.9, adult
CPT/HCPCS: 36415 ×4; 51703; 71010; 80048; 80053 ×3; 82962 ×11; 83735 ×3; 83880; 84100 ×2; 84484 ×3; 85025 ×4; 93005; 93306; 94640 ×2; 96374; 96375; 97161; 99285; A9270 ×34; J1650 ×3; J1815; J1940 ×5; 36410; 51702; 96372; 96376; 97597-GP; G0378; J1160; J3490

== ENCOUNTER 2017-04-02 12:50 | Emergency (ER) | payer MEDICARE, MEDICAID ==
[2017-04-02] MEDS ORDERED: Sodium Chloride 0.9% 1,000 ML IV ONE ×2 (13:03→14:09)
[2017-04-02] MEDS ORDERED: Ondansetron 4 MG/2 ML SDV IVPUSH ONE (13:03)
--- NOTE | 2017-04-02 13:05 | EDM.PDOC ---
ED HPI GENERAL MEDICAL PROBLEM - General Chief Complaint: Gastrointestinal Problem Stated Complaint: PT DOESN'T FEEL GOOD Time Seen by Provider: 04/02/17 13:04 Source of Information: Reports: Patient - History of Present Illness INITIAL COMMENTS - FREE TEXT/NARRATIVE: HISTORY AND PHYSICAL: History of present illness: []Patient from [facility] with history of diabetes not feeling well over the last week has had some abdominal pain vomiting and diarrhea for one week No fever nausea vomiting chills sweats denies chest pain or shortness breath Review of systems: As per history of present illness and below otherwise all systems reviewed and negative. Past medical history: As per history of present illness and as reviewed below otherwise noncontributory. Surgical history: As per history of present illness and as reviewed below otherwise noncontributory. Social history: No reported history of drug or alcohol abuse. Family history: As per history of present illness and as reviewed below otherwise noncontributory. Physical exam: HEENT: Atraumatic, normocephalic, pupils reactive, negative for conjunctival pallor or scleral icterus, mucous membranes moist, throat clear, neck supple, nontender, trachea midline. Lungs: Clear to auscultation, breath sounds equal bilaterally, chest nontender. Heart: S1S2, regular, negative for clicks, rubs, or JVD. Abdomen: Soft, nondistended, tender left lower quadrant Negative for masses or hepatosplenomegaly. Negative for costovertebral tenderness. Pelvis: Stable nontender. Genitourinary: Deferred. Rectal: Deferred. Extremities: Atraumatic, negative for cords or calf pain. Neurovascular unremarkable. Neuro: Awake, alert, oriented. Cranial nerves II through XII unremarkable. Cerebellum unremarkable. Motor and sensory unremarkable throughout. Exam nonfocal. Diagnostics: []Lab as below EKG Chest [address] abdomen with contrast, not performed due to cardiac enzymes elevated and ischemia on EKG Therapeutics: []Liter normal saline bolus and 125 Zofran 8 mg IV Cipro 400 mg IV Aspirin 324 mg chewable Lovenox 100 mg subcutaneous Metoprolol 5 mg IV Impression: Acute coronary syndrome Global ischemia on EKG with elevated troponin []Left lower quadrant pain/clinical diverticulitis Renal insufficiency Nausea vomiting diarrhea Chronic history of baseline Definitive disposition and diagnosis as appropriate pending reevaluation and review of above. - Related Data Allergies Allergy/AdvReac Type Severity Reaction Status Date / Time kaylah inhibitor Allergy Airway Uncoded 04/02/17 13:03 Tightness Home Meds: Home Meds Ascorbic Acid [Vitamin C] 1,000 mg PO DAILY 02/18/15 [History] Levothyroxine [Synthroid] 50 mcg PO DAILY 02/18/15 [History] Multivit-Min/FA/Lycopene/Lut [Complete Multi 50+] 1 tab PO DAILY 02/18/15 [ History] amLODIPine Besylate [Amlodipine Besylate] 5 mg PO DAILY 02/18/15 [History] atorvaSTATin [Lipitor] 40 mg PO DAILY 02/18/15 [History] metFORMIN [Glucophage] 500 mg PO BID 02/18/15 [History] Albuterol Sulfate [Proair Hfa] 2 puff IH QID PRN 10/16/16 [History] Dulaglutide [Trulicity] 0.75 mg SQ TU@0900 10/16/16 [History] Fluticasone/Vilanterol [Breo Ellipta 100-25 MCG Inhalation Kit] 1 each IH DAILY 10/16/16 [History] Glimepiride [Amaryl] 2 mg PO WITHBREAKFAST 10/16/16 [History] Insulin Glarg,Human.Rec.Analog [LantUS Solostar] 22 units SUBCUT BEDTIME [History] Mirtazapine 30 mg PO BEDTIME 10/16/16 [History] Naproxen Sodium [Aleve] 220 mg PO BID PRN 10/16/16 [History] PARoxetine HCl [Paroxetine HCl] 40 mg PO DAILY 10/16/16 [History] cloNIDine 0.3 mg TD FR@0900 10/16/16 [History] Albuterol/Ipratropium [DuoNeb 3.0-0.5 MG/3 ML] 3 ml NEB Q4HRRT PRN #10 neb 10/21 [Rx] Bisacodyl [Dulcolax] 10 mg RECTAL DAILY PRN #10 supp 10/21/16 [Rx] Insulin Aspart [NovoLOG] See Protocol SUBCUT ACBED #1 pen 10/21/16 [Rx] Polyethylene Glycol 3350 [MiraLAX] 17 gm PO DAILY PRN #10 packet 10/21/16 [Rx] Acetaminophen 500 mg PO Q4H PRN 03/05/17 [History] Ferrous Sulfate 325 mg PO DAILY 03/05/17 [History] fentaNYL [Duragesic] 25 mcg TRDERM Q72H 03/05/17 [History] Mag Hydrox/Al Hydrox/Simeth [Maalox Maximum Strength Susp] 30 ml PO ASDIRECTED PRN 03/07/17 [History] Temazepam [Restoril] 15 mg PO BEDTIME 03/07/17 [History] Aspirin [Adult Low Dose Aspirin EC] 81 mg PO DAILY 30 Days 03/10/17 [Rx] Digoxin [Digox] 250 mcg PO DAILY #30 tablet 03/10/17 [Rx] Furosemide [Lasix] 40 mg PO BID #60 tablet 03/10/17 [Rx] Metoprolol Tartrate [Lopressor] 75 mg PO TID #90 tablet 03/10/17 [Rx] Rivaroxaban [Xarelto] 15 mg PO DAILY #30 tablet 03/10/17 [Rx] Prednisone [IJD: Prednisone] 10 mg PO DAILY 04/02/17 [History] Past Medical History HEENT History: Reports: None Cardiovascular History: Reports: High Cholesterol, Hypertension Respiratory History: Reports: Asthma Gastrointestinal History: Reports: None Genitourinary History: Reports: None 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 Musculoskeletal History: Reports: Osteoporosis Neurological History: Reports: CVA, Other (See Below) Other Neuro History: "3 strokes" Psychiatric History: Reports: None Endocrine/Metabolic History: Reports: Diabetes, Type II, Hypothyroidism, Osteoporosis Hematologic History: Reports: None Oncologic (Cancer) History: Reports: None Dermatologic History: Reports: None - Infectious Disease History Infectious Disease History: Reports: None - Past Surgical History Female Surgical History: Reports: None Social & Family History - Family History Family Medical History: Noncontributory - Tobacco Use Smoking Status *Q: Never Smoker Second Hand Smoke Exposure: No - Caffeine Use Caffeine Use: Reports: Coffee - Recreational Drug Use Recreational Drug Use: No Recreational Drug Type: Reports: Marijuana/Hashish Other Recreational Drug Type: Patient reports "smoking pot" today Recreational Drug Use Frequency: Daily - Living Situation & Occupation Living situation: Reports: Extended Care Facility ED ROS GENERAL - Review of Systems Review Of Systems: ROS reveals no pertinent complaints other than HPI. ED EXAM, GENERAL - Physical Exam Exam: See Below Course - Vital Signs Last Recorded V/S: Last Vital Signs Temp 36.6 C 04/02/17 13:03 Pulse 54 L 04/02/17 13:03 Resp 16 04/02/17 13:03 BP 105/76 04/02/17 13:03 Pulse Ox 95 04/02/17 13:03 - Orders/Labs/Meds Orders: Active Orders 24 hr Category Date Time Status EKG Documentation Completion [RC] STAT Care 04/02/17 13:03 Active Abdomen Pelvis w Cont [CT] Stat Exams 04/02/17 13:03 Ordered Chest 1V Frontal [CR] Stat Exams 04/02/17 13:38 Ordered UA W/MICROSCOPIC [URIN] Stat Lab 04/02/17 13:03 Uncollected Metoprolol Tartrate [Lopressor] 5 mg Med 04/02/17 13:38 Active Sodium Chloride 0.9% [Normal Saline] 50 ml IV ONETIME Sodium Chloride 0.9% [Normal Saline] 1,000 ml Med 04/02/17 13:03 Active IV STAT metroNIDAZOLE/Normal Saline [Flagyl 500 MG in NS 100 ML Med 04/02/17 13:55 Active ] 500 mg Premix Bag 1 bag IV ONETIME Medication Orders Sodium Chloride (Normal Saline) 1,000 mls @ 999 mls/hr IV STAT ONE Stop: 04/02/17 14:03 Last Admin: 04/02/17 13:14 Dose: 999 mls/hr Metoprolol Tartrate 5 mg/ (Sodium Chloride) 55 mls @ 100 mls/hr IV ONETIME ONE Stop: 04/02/17 14:10 Metronidazole 500 mg/ Premix 100 mls @ 100 mls/hr IV ONETIME ONE Stop: 04/02/17 14:54 Labs: Laboratory Tests 04/02/17 04/02/17 04/02/17 Range/Units 13:00 13:00 13:00 WBC 16.21 H (4.0-11.0) K/uL RBC 5.23 (4.30-5.90) M/uL Hgb 15.5 (12.0-16.0) g/dL Hct 48.7 H (36.0-46.0) % MCV 93.1 (80.0-98.0) fL MCH 29.6 (27.0-32.0) pg MCHC 31.8 (31.0-37.0) g/dL RDW Std Deviation 53.8 (28.0-62.0) fl RDW Coeff of Leia 16 H (11.0-15.0) % Plt Count 323 (150-400) K/uL MPV 11.80 (7.40-12.00) fL Neut % (Auto) 74.6 (48.0-80.0) % Lymph % (Auto) 13.4 L (16.0-40.0) % [place] % (Auto) 10.2 (0.0-15.0) % Eos % (Auto) 1.5 (0.0-7.0) % Baso % (Auto) 0.3 (0.0-1.5) % Neut # (Auto) 12.1 H (1.4-5.7) K/uL Lymph # (Auto) 2.2 (0.6-2.4) K/uL [place] # (Auto) 1.7 H (0.0-0.8) K/uL Eos # (Auto) 0.3 (0.0-0.7) K/uL Baso # (Auto) 0.1 (0.0-0.1) K/uL Nucleated RBC % 0.0 /100WBC Nucleated RBCs # 0 K/uL Sodium 148 H (136-146) mmol/L Potassium 3.8 (3.5-5.1) mmol/L Chloride 97 L (98-110) mmol/L Carbon Dioxide 34 H (21-31) mmol/L BUN 48 H (6.0-23.0) mg/dL Creatinine 2.4 H (0.6-1.5) mg/dL Est Cr Clr Drug Dosing 22.22 mL/min Estimated GFR (MDRD) 20.7 ml/min Glucose 105 (60-110) mg/dL Calcium 9.6 (8.8-10.8) mg/dL Total Bilirubin 0.5 (0.1-1.5) mg/dL AST 40 (5-40) IU/L ALT 48 (8-54) IU/L Alkaline Phosphatase 92 (40-150) Creatine Kinase 108 (9-236) IU/L CK-MB (CK-2) 14.3 H (0-6.6) ng/ml Troponin I 0.36 H* (0.0-0.29) NG/ML Total Protein 6.5 (6.0-8.0) g/dL Albumin 3.4 L (3.5-5.0) g/dL Globulin 3.1 (2.0-3.5) g/dL Albumin/Globulin Ratio 1.1 L (1.3-2.8) Amylase 49 (10-90) U/L Lipase 32 (7-80) U/L Meds: Medications Generic Name Dose Route Start Last Admin Trade Name Freq PRN Reason Stop Dose Admin Sodium Chloride 1,000 mls @ 999 mls/hr 04/02/17 13:03 04/02/17 13:14 Normal Saline IV 04/02/17 14:03 999 mls/hr STAT ONE Administration Metoprolol Tartrate 5 mg/ 55 mls @ 100 mls/hr 04/02/17 13:38 Sodium Chloride IV 04/02/17 14:10 ONETIME ONE Metronidazole 500 mg/ Premix 100 mls @ 100 mls/hr 04/02/17 13:55 IV 04/02/17 14:54 ONETIME ONE Discontinued Medications Generic Name Dose Route Start Last Admin Trade Name Freq PRN Reason Stop Dose Admin Aspirin 324 mg 04/02/17 13:39 04/02/17 13:47 Aspirin PO 04/02/17 13:40 324 mg ONETIME ONE Administration Enoxaparin Sodium 100 mg 04/02/17 13:38 04/02/17 13:48 Lovenox SUBCUT 04/02/17 13:39 100 mg ONETIME ONE Administration Ciprofloxacin/Dextrose 400 mg/ 200 mls @ 200 mls/hr 04/02/17 13:48 Premix IV 04/02/17 14:47 NOW STA Morphine Sulfate 2 mg 04/02/17 13:43 04/02/17 13:52 Morphine IV 04/02/17 13:44 2 mg ONETIME ONE Administration Ondansetron HCl 8 mg 04/02/17 13:03 04/02/17 13:14 Zofran IVPUSH 04/02/17 13:04 8 mg ONETIME ONE Administration Departure - Departure Time of Disposition: 13:58 Disposition: DC/Tfer to Other 70 Condition: Poor Clinical Impression: Acute coronary syndrome, Abdominal pain, Renal insufficiency - Discharge Information Forms: ED Department Discharge - My Orders Last 24 Hours: My Active Orders 04/02/17 13:03 EKG Documentation Completion [RC] STAT Abdomen Pelvis w Cont [CT] Stat UA W/MICROSCOPIC [URIN] Stat Sodium Chloride 0.9% [Normal Saline] 1,000 ml IV STAT 04/02/17 13:38 Chest 1V Frontal [CR] Stat Metoprolol Tartrate [Lopressor] 5 mg Sodium Chloride 0.9% [Normal Saline] 50 ml IV ONETIME 04/02/17 13:55 metroNIDAZOLE/Normal Saline [Flagyl 500 MG in NS 100 ML] 500 mg Premix Bag 1 bag IV ONETIME - Assessment/Plan Last 24 Hours: My Active Orders 04/02/17 13:03 EKG Documentation Completion [RC] STAT Abdomen Pelvis w Cont [CT] Stat UA W/MICROSCOPIC [URIN] Stat Sodium Chloride 0.9% [Normal Saline] 1,000 ml IV STAT 04/02/17 13:38 Chest 1V Frontal [CR] Stat Metoprolol Tartrate [Lopressor] 5 mg Sodium Chloride 0.9% [Normal Saline] 50 ml IV ONETIME 04/02/17 13:55 metroNIDAZOLE/Normal Saline [Flagyl 500 MG in NS 100 ML] 500 mg Premix Bag 1 bag IV ONETIME
[2017-04-02] MEDS ORDERED: Metoprolol Tartrate 5 MG in Sodium Chloride 0.9% 50 ML IV ONE (13:38)
[2017-04-02] MEDS ORDERED: Enoxaparin 100 MG/1 ML Syringe SUBCUT ONE (13:38)
[2017-04-02] MEDS ORDERED: Aspirin 81 MG Tab.Chew PO ONE (13:39)
[2017-04-02] MEDS ORDERED: Morphine 10 MG/ML Syringe IV ONE (13:43)
[2017-04-02] MEDS ORDERED: Ciprofloxacin in D5W 400 MG in Premix Bag 1 BAG IV STA ×2 (13:48)
[2017-04-02] MEDS ORDERED: metroNIDAZOLE/Normal Saline 500 MG in Premix Bag 1 BAG IV ONE ×2 (13:55→14:01)
[2017-04-02] MEDS ORDERED: Metoprolol Tartrate 5 MG/5 ML SDV ONE (14:02)
[2017-04-02 14:46] VITALS: BP 116/61
[2017-04-02] MEDS ORDERED: Labetalol 5 MG/ML 5 ML Syringe IVPUSH ONE (14:47)
--- NOTE | 2017-04-04 14:58 | CR ---
EXAM DATE: 04/02/17 PATIENT'S AGE: 56 Patient: COCO REILLY Facility: [place], [place] Site . Site : 1960 Study: XRay Chest [id number]/2017 2:30:43 PM Ordering Physician: Wojciech Garcia Final Report: CHEST 1 VIEW AP INDICATION: Chest pain. Short of breath. COMPARISON: 2016. IMPRESSION: Stable heart size and vascular pattern. 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 Lungs are clear of new focal opacities. No pneumothorax or pleural abnormality. Dictated by Toribio Araya MD @ Apr 02 2017 3:11PM (Electronic Signature) Report Signed by Proxy. JOAO
== END 2017-04-02 14:45 ==
LOC: MW.ED 12:50
DX: I24.9 Acute ischemic heart disease, unspecified (principal); N28.9 Disorder of kidney and ureter, unspecified; E78.00 Pure hypercholesterolemia, unspecified; I10 Essential (primary) hypertension; J45.909 Unspecified asthma, uncomplicated; E11.9 Type 2 diabetes mellitus without complications; E03.9 Hypothyroidism, unspecified; Z79.84 Long term (current) use of oral hypoglycemic drugs; Z79.899 Other long term (current) drug therapy; Z79.82 Long term (current) use of aspirin; Z86.73 Personal history of transient ischemic attack (TIA), and cerebral infarction without residual deficits
CPT/HCPCS: 36415; 51702; 71010; 80053; 81001; 82150; 82550; 82553; 83690; 84484; 85025; 93005; 96361; 96365; 96372; 96374; 96375; 99285; A9270; J1650; J2270; J2405; J7040; J7050; 99283

== ENCOUNTER 2017-04-20 12:41 | Inpatient (IN) | payer MEDICARE, MEDICAID ==
--- NOTE | 2017-04-20 14:37 | CR ---
EXAMINATION: Two-view chest (PA and Lateral views). HISTORY: Shortness of breath. [facility]: 03/20/2015. FINDINGS: The trachea is midline. The cardiomediastinal silhouette is within normal limits. No pulmonary infilt rates, effusions or pneumothorax. There is a moderate to severe wedge deformity near the thoracolumbar junction, unchanged. IMPRESSION: No acute cardiopulmonary process.
--- NOTE | 2017-04-20 14:41 | EDM.PDOC ---
ED HPI GENERAL MEDICAL PROBLEM - General Chief Complaint: Cardiovascular Problem Stated Complaint: UNK Time Seen by Provider: 04/20/17 12:50 Source of Information: Reports: Patient History Limitations: Reports: No Limitations - History of Present Illness INITIAL COMMENTS - FREE TEXT/NARRATIVE: History of present illness: [56-year-old female from [place] home brought in secondary to feelings of being unwell. Patient has many comorbid chronic diseases and has a baseline presentation of poor health.] Review of systems: As per history of present illness and below otherwise all systems reviewed and negative. Past medical history: As per history of present illness and as reviewed below otherwise noncontributory. Surgical history: As per history of present illness and as reviewed below otherwise noncontributory. Social history: No reported history of drug or alcohol abuse. Family history: As per history of present illness and as reviewed below otherwise noncontributory. Physical exam: HEENT: Atraumatic, normocephalic, pupils reactive, negative for conjunctival pallor or scleral icterus, mucous membranes moist, throat clear, neck supple, nontender, trachea midline. Lungs: Clear to auscultation, breath sounds diminished but otherwise equal bilaterally, chest nontender. Heart: S1S2, regular, negative for clicks, rubs, or JVD. Abdomen: Soft, Vivek present nontender. Negative for masses or hepatosplenomegaly. Negative for costovertebral tenderness. Pelvis: Stable nontender. Genitourinary: Deferred. Rectal: Deferred. Extremities: Bilateral lower extremities with chronic cellular changes due to peripheral vascular disease and stasis ulcers, negative for cords or calf pain. Neurovascular unremarkable. Neuro: Awake, alert, oriented. Cranial nerves II through XII unremarkable. Cerebellum unremarkable. Motor and sensory unremarkable throughout. Exam nonfocal. Patient presents with obvious chronic comorbid disease but not toxic. Diagnostics: [EKG, chest x-ray, troponin, CBC, CMP, amylase, lipase, lactic acid, blood cultures 2, UA, CT of head without contrast] Therapeutics: [Saline lock, Rocephin 1 g] Impression: [#1 generalized weakness #2 UTI #3 rule out urosepsis] Plan: [Admit to [facility] per Dr. Franks] Definitive disposition and diagnosis as appropriate pending reevaluation and review of above. - Related Data Allergies Allergy/AdvReac Type Severity Reaction Status Date / Time kaylah inhibitor Allergy Airway Uncoded 04/02/17 13:03 Tightness Home Meds: Home Meds Levothyroxine [Synthroid] 50 mcg PO DAILY 02/18/15 [History] Multivit-Min/FA/Lycopene/Lut [Complete Multi 50+] 1 tab PO DAILY 02/18/15 [ History] atorvaSTATin [Lipitor] 40 mg PO BEDTIME 02/18/15 [History] metFORMIN [Glucophage] 500 mg PO BID 02/18/15 [History] Albuterol Sulfate [Proair Hfa] 2 puff IH QID PRN 10/16/16 [History] Dulaglutide [Trulicity] 0.75 mg SQ TU@0900 10/16/16 [History] Fluticasone/Vilanterol [Breo Ellipta 100-25 MCG Inhalation Kit] 1 inhalation IH DAILY 10/16/16 [History] Glimepiride [Amaryl] 2 mg PO WITHBREAKFAST 10/16/16 [History] Insulin Glarg,Human.Rec.Analog [LantUS Solostar] 22 units SUBCUT BEDTIME [History] Naproxen Sodium [Aleve] 220 mg PO BID PRN 10/16/16 [History] PARoxetine HCl [Paroxetine HCl] 40 mg PO DAILY 10/16/16 [History] cloNIDine 0.3 mg TD FR@0900 10/16/16 [History] Albuterol/Ipratropium [DuoNeb 3.0-0.5 MG/3 ML] 3 ml NEB Q4HRRT PRN #10 neb 10/21 [Rx] Insulin Aspart [NovoLOG] See Protocol SUBCUT ACBED #1 pen 10/21/16 [Rx] Polyethylene Glycol 3350 [MiraLAX] 17 gm PO DAILY PRN #10 packet 10/21/16 [Rx] Ferrous Sulfate 325 mg PO DAILY 03/05/17 [History] fentaNYL [Duragesic] 25 mcg TRDERM Q72H 03/05/17 [History] Temazepam [Restoril] 15 mg PO BEDTIME 03/07/17 [History] Digoxin [Digox] 250 mcg PO DAILY #30 tablet 03/10/17 [Rx] Prednisone [IJD: Prednisone] 10 mg PO DAILY 04/02/17 [History] Ascorbic Acid 1,000 mg PO DAILY 04/20/17 [History] Aspirin 325 mg PO DAILY 04/20/17 [History] Furosemide [Lasix] 40 mg PO DAILY 04/20/17 [History] Metoprolol Tartrate [Lopressor] 75 mg PO TID 04/20/17 [History] Mirtazapine 45 mg PO DAILY 04/20/17 [History] Rivaroxaban [Xarelto] 15 mg PO DAILY 04/20/17 [History] amLODIPine [Norvasc] 10 mg PO DAILY 04/20/17 [History] Past Medical History HEENT History: Reports: None Cardiovascular History: Reports: High Cholesterol, Hypertension Respiratory History: Reports: Asthma Gastrointestinal History: Reports: None Genitourinary History: Reports: None 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 Musculoskeletal History: Reports: Osteoporosis Other Musculoskeletal History: Restless Leg Syndrome Neurological History: Reports: CVA, Other (See Below) Other Neuro History: "3 strokes" Psychiatric History: Reports: None Endocrine/Metabolic History: Reports: Diabetes, Type II, Hypothyroidism, Osteoporosis Hematologic History: Reports: None Oncologic (Cancer) History: Reports: None Dermatologic History: Reports: None - Infectious Disease History Infectious Disease History: Reports: None - Past Surgical History Female Surgical History: Reports: None Social & Family History - Family History Family Medical History: Noncontributory - Tobacco Use Smoking Status *Q: Never Smoker Second Hand Smoke Exposure: No - Caffeine Use Caffeine Use: Reports: None - Recreational Drug Use Recreational Drug Use: No Recreational Drug Type: Reports: Marijuana/Hashish Other Recreational Drug Type: Patient reports "smoking pot" today Recreational Drug Use Frequency: Daily - Living Situation & Occupation Living situation: Reports: Extended Care Facility ED ROS GENERAL - Review of Systems Review Of Systems: See Below (See history of present illness) ED EXAM, GENERAL - Physical Exam Exam: See Below (See history of present illness) Course - Vital Signs Last Recorded V/S: Last Vital Signs Temp 36.1 C 04/20/17 12:53 Pulse 48 L 04/20/17 18:01 Resp 13 04/20/17 18:01 BP 130/61 04/20/17 18:01 Pulse Ox 93 L 04/20/17 18:01 - Orders/Labs/Meds Orders: Active Orders 24 hr Category Date Time Status EKG Documentation Completion [RC] STAT Care 04/20/17 14:04 Active CULTURE BLOOD [BC] Stat Lab 04/20/17 15:00 Received CULTURE BLOOD [BC] Stat Lab 04/20/17 15:15 Received cefTRIAXone [Rocephin] 1,000 mg Med 04/20/17 18:15 Ordered Sodium Chloride 0.9% [Normal Saline] 50 ml IV ONETIME Blood Culture x2 Reflex Set [OM.PC] Stat Oth 04/20/17 14:05 Ordered Saline Lock Insert [OM.PC] Stat Oth 04/20/17 13:43 Ordered Labs: Laboratory Tests 04/20/17 04/20/17 04/20/17 Range/Units 13:59 13:59 13:59 WBC 13.76 H (4.0-11.0) K/uL RBC 4.49 (4.30-5.90) M/uL Hgb 13.5 (12.0-16.0) g/dL Hct 43.3 (36.0-46.0) % MCV 96.4 (80.0-98.0) fL MCH 30.1 (27.0-32.0) pg MCHC 31.2 (31.0-37.0) g/dL RDW Std Deviation 64.7 H (28.0-62.0) fl RDW Coeff of Leia 19 H (11.0-15.0) % Plt Count 434 H (150-400) K/uL MPV 12.00 (7.40-12.00) fL Neut % (Auto) 72.9 (48.0-80.0) % Lymph % (Auto) 12.6 L (16.0-40.0) % [place] % (Auto) 11.6 (0.0-15.0) % Eos % (Auto) 2.5 (0.0-7.0) % Baso % (Auto) 0.4 (0.0-1.5) % Neut # (Auto) 10.0 H (1.4-5.7) K/uL Lymph # (Auto) 1.7 (0.6-2.4) K/uL [place] # (Auto) 1.6 H (0.0-0.8) K/uL Eos # (Auto) 0.4 (0.0-0.7) K/uL Baso # (Auto) 0.1 (0.0-0.1) K/uL Nucleated RBC % 0.0 /100WBC Nucleated RBCs # 0 K/uL Lactate 1.6 (0.20-2.00) mmol/L Sodium 149 H (136-146) mmol/L Potassium 3.4 L (3.5-5.1) mmol/L Chloride 105 (98-110) mmol/L Carbon Dioxide 32 H (21-31) mmol/L BUN 22 (6.0-23.0) mg/dL Creatinine 1.6 H (0.6-1.5) mg/dL Est Cr Clr Drug Dosing 33.34 mL/min Estimated GFR (MDRD) 33.1 ml/min Glucose 112 H (60-110) mg/dL Calcium 9.6 (8.8-10.8) mg/dL Total Bilirubin 0.5 (0.1-1.5) mg/dL AST 16 (5-40) IU/L ALT 32 (8-54) IU/L Alkaline Phosphatase 78 (40-150) Troponin I (0.0-0.29) NG/ML Total Protein 6.0 (6.0-8.0) g/dL Albumin 3.2 L (3.5-5.0) g/dL Globulin 2.8 (2.0-3.5) g/dL Albumin/Globulin Ratio 1.1 L (1.3-2.8) Amylase 40 (10-90) U/L Lipase 17 (7-80) U/L Urine Color Urine Appearance Urine pH (5.0-8.0) Ur Specific [place] (1.001-1.035) Urine Protein (NEGATIVE) mg/dL Urine Glucose (UA) (NEGATIVE) mg/dL Urine Ketones (NEGATIVE) mg/dL Urine Occult Blood (NEGATIVE) Urine Nitrite (NEGATIVE) Urine Bilirubin (NEGATIVE) Urine Urobilinogen (<2.0) EU/dL Ur Leukocyte Esterase (NEGATIVE) Urine RBC (0-2/HPF) Urine WBC (0-5/HPF) Ur Epithelial Cells (NONE-FEW) Urine Bacteria (NEGATIVE) 04/20/17 04/20/17 Range/Units 15:00 16:50 WBC (4.0-11.0) K/uL RBC (4.30-5.90) M/uL Hgb (12.0-16.0) g/dL Hct (36.0-46.0) % MCV (80.0-98.0) fL MCH (27.0-32.0) pg MCHC (31.0-37.0) g/dL RDW Std Deviation (28.0-62.0) fl RDW Coeff of Leia (11.0-15.0) % Plt Count (150-400) K/uL MPV (7.40-12.00) fL Neut % (Auto) (48.0-80.0) % Lymph % (Auto) (16.0-40.0) % [place] % (Auto) (0.0-15.0) % Eos % (Auto) (0.0-7.0) % Baso % (Auto) (0.0-1.5) % Neut # (Auto) (1.4-5.7) K/uL Lymph # (Auto) (0.6-2.4) K/uL [place] # (Auto) (0.0-0.8) K/uL Eos # (Auto) (0.0-0.7) K/uL Baso # (Auto) (0.0-0.1) K/uL Nucleated RBC % /100WBC Nucleated RBCs # K/uL Lactate (0.20-2.00) mmol/L Sodium (136-146) mmol/L Potassium (3.5-5.1) mmol/L Chloride (98-110) mmol/L Carbon Dioxide (21-31) mmol/L BUN (6.0-23.0) mg/dL Creatinine (0.6-1.5) mg/dL Est Cr Clr Drug Dosing mL/min Estimated GFR (MDRD) ml/min Glucose (60-110) mg/dL Calcium (8.8-10.8) mg/dL Total Bilirubin (0.1-1.5) mg/dL AST (5-40) IU/L ALT (8-54) IU/L Alkaline Phosphatase (40-150) Troponin I 0.13 (0.0-0.29) NG/ML Total Protein (6.0-8.0) g/dL Albumin (3.5-5.0) g/dL Globulin (2.0-3.5) g/dL Albumin/Globulin Ratio (1.3-2.8) Amylase (10-90) U/L Lipase (7-80) U/L Urine Color YELLOW Urine Appearance SLT CLOUDY Urine pH 6.0 (5.0-8.0) Ur Specific [place] 1.010 (1.001-1.035) Urine Protein NEGATIVE (NEGATIVE) mg/dL Urine Glucose (UA) NEGATIVE (NEGATIVE) mg/dL Urine Ketones NEGATIVE (NEGATIVE) mg/dL Urine Occult Blood MODERATE (NEGATIVE) Urine Nitrite POSITIVE H (NEGATIVE) Urine Bilirubin NEGATIVE (NEGATIVE) Urine Urobilinogen 0.2 (<2.0) EU/dL Ur Leukocyte Esterase LARGE (NEGATIVE) Urine RBC 3-6 (0-2/HPF) Urine WBC 100-120 (0-5/HPF) Ur Epithelial Cells FEW (NONE-FEW) Urine Bacteria 1+ H (NEGATIVE) Departure - Departure Time of Disposition: 18:16 Disposition: Home, Self-Care 01 Condition: Good Clinical Impression: UTI, Urinary tract infectious disease, Weakness Referrals: PCP,Unknown [Primary Care Provider] - Forms: ED Department Discharge - My Orders Last 24 Hours: My Active Orders 04/20/17 13:43 Saline Lock Insert [OM.PC] Stat 04/20/17 14:04 EKG Documentation Completion [RC] STAT 04/20/17 14:05 Blood Culture x2 Reflex Set [OM.PC] Stat 04/20/17 15:00 CULTURE BLOOD [BC] Stat 04/20/17 15:15 CULTURE BLOOD [BC] Stat 04/20/17 18:15 cefTRIAXone [Rocephin] 1,000 mg Sodium Chloride 0.9% [Normal Saline] 50 ml IV ONETIME - Assessment/Plan Last 24 Hours: My Active Orders 04/20/17 13:43 Saline Lock Insert [OM.PC] Stat 04/20/17 14:04 EKG Documentation Completion [RC] STAT 04/20/17 14:05 Blood Culture x2 Reflex Set [OM.PC] Stat 04/20/17 15:00 CULTURE BLOOD [BC] Stat 04/20/17 15:15 CULTURE BLOOD [BC] Stat 04/20/17 18:15 cefTRIAXone [Rocephin] 1,000 mg Sodium Chloride 0.9% [Normal Saline] 50 ml IV ONETIME
--- NOTE | 2017-04-20 16:22 | CT ---
EXAMINATION: Non contrast CT head. Coronal and sagittal reformats. HISTORY: Pain FINDINGS: No evidence of intra or extra axial hemorrhage, mass, midline shift, hydrocephalus or edema. Periven tricular white matter hypodensities are noted. There is likely an old left periventricular lacunar in farct. Mild cortical encephalomalacia is noted within the right occipital region and within the parie magi-occipital region on the right. Mild symmetric prominence of the ventricles noted. No hypoattenuation changes in the major vascular territories to suggest acute infarct. No abnormal intracranial calcifications are detected. No evidence of substantial vascular calcificat ions. The orbits and globes are symmetric. The paranasal sinuses and mastoid air cells are well aera rasta without substantial findings. The pituitary fossa appears unremarkable. The calvarium is intact . No evidence of skull fracture. IMPRESSION: 1. No acute intracranial findings. 2. Moderate small vessel ischemic changes. 3. Old left periventricular lacunar infarct and old small left occipital and left parietal/occipital cortical infarcts.
[2017-04-20] MEDS ORDERED: cefTRIAXone 1,000 MG in Sodium Chloride 0.9% 50 ML IV ONE ×2 (18:15→18:34)
[2017-04-20] MEDS ORDERED: cefTRIAXone 1 GM in Premix Bag 1 BAG IV ONE (19:00)
[2017-04-20] MEDS ORDERED: Albuterol/Ipratropium 3.0-0.5 MG/3 ML Neb Soln NEB PRN (19:23)
[2017-04-20] MEDS ORDERED: fentaNYL 25 MCG/HR Transdermal Patch TRDERM SCH (19:30)
[2017-04-20] MEDS ORDERED: Ondansetron 4 MG/2 ML SDV IVPUSH PRN (19:39)
--- NOTE | 2017-04-20 19:40 | PCM.HP ---
H&P History of Present Illness - General Admit Problem/Dx: Admission Diagnosis/Problem Admission Diagnosis/Problem Weakness - History of Present Illness Initial Comments - Free Text/Narative: 56 yo female [place] residential resident with history of CVA, atrial fibrillation, on xarelto, CAD s/p PCI, DM, HTN, who presents with lethargy. She reports subjective fevers, chills, nausea and vomiting. She was evaluated in the ED an noted to have a urinary tract infection. She was given IV Rocephin. - Related Data Allergies/Adverse Reactions: Allergies Allergy/AdvReac Type Severity Reaction Status Date / Time kaylah inhibitor Allergy Airway Uncoded 04/02/17 13:03 Tightness Home Medications: Home Meds Levothyroxine [Synthroid] 50 mcg PO DAILY 02/18/15 [History] Multivit-Min/FA/Lycopene/Lut [Complete Multi 50+] 1 tab PO DAILY 02/18/15 [ History] atorvaSTATin [Lipitor] 40 mg PO BEDTIME 02/18/15 [History] metFORMIN [Glucophage] 500 mg PO BID 02/18/15 [History] Albuterol Sulfate [Proair Hfa] 2 puff IH QID PRN 10/16/16 [History] Dulaglutide [Trulicity] 0.75 mg SQ TU@0900 10/16/16 [History] Fluticasone/Vilanterol [Breo Ellipta 100-25 MCG Inhalation Kit] 1 inhalation IH DAILY 10/16/16 [History] Glimepiride [Amaryl] 2 mg PO WITHBREAKFAST 10/16/16 [History] Insulin Glarg,Human.Rec.Analog [LantUS Solostar] 22 units SUBCUT BEDTIME [History] Naproxen Sodium [Aleve] 220 mg PO BID PRN 10/16/16 [History] PARoxetine HCl [Paroxetine HCl] 40 mg PO DAILY 10/16/16 [History] cloNIDine 0.3 mg TD FR@0900 10/16/16 [History] Albuterol/Ipratropium [DuoNeb 3.0-0.5 MG/3 ML] 3 ml NEB Q4HRRT PRN #10 neb 10/21 [Rx] Insulin Aspart [NovoLOG] See Protocol SUBCUT ACBED #1 pen 10/21/16 [Rx] Polyethylene Glycol 3350 [MiraLAX] 17 gm PO DAILY PRN #10 packet 10/21/16 [Rx] Ferrous Sulfate 325 mg PO DAILY 03/05/17 [History] fentaNYL [Duragesic] 25 mcg TRDERM Q72H 03/05/17 [History] Temazepam [Restoril] 15 mg PO BEDTIME 03/07/17 [History] Digoxin [Digox] 250 mcg PO DAILY #30 tablet 03/10/17 [Rx] Prednisone [IJD: Prednisone] 10 mg PO DAILY 04/02/17 [History] Ascorbic Acid 1,000 mg PO DAILY 04/20/17 [History] Aspirin 325 mg PO DAILY 04/20/17 [History] Furosemide [Lasix] 40 mg PO DAILY 04/20/17 [History] Metoprolol Tartrate [Lopressor] 75 mg PO TID 04/20/17 [History] Mirtazapine 45 mg PO DAILY 04/20/17 [History] Rivaroxaban [Xarelto] 15 mg PO DAILY 04/20/17 [History] amLODIPine [Norvasc] 10 mg PO DAILY 04/20/17 [History] Past Medical History HEENT History: Reports: None Cardiovascular History: Reports: High Cholesterol, Hypertension Respiratory History: Reports: Asthma Gastrointestinal History: Reports: None Genitourinary History: Reports: None 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 Musculoskeletal History: Reports: Osteoporosis Other Musculoskeletal History: Restless Leg Syndrome Neurological History: Reports: CVA, Other (See Below) Other Neuro History: "3 strokes" Psychiatric History: Reports: None Endocrine/Metabolic History: Reports: Diabetes, Type II, Hypothyroidism, Osteoporosis Hematologic History: Reports: None Oncologic (Cancer) History: Reports: None Dermatologic History: Reports: None - Infectious Disease History Infectious Disease History: Reports: None - Past Surgical History Female Surgical History: Reports: None Social & Family History - Family History Family Medical History: Noncontributory - Tobacco Use Smoking Status *Q: Never Smoker Second Hand Smoke Exposure: No - Caffeine Use Caffeine Use: Reports: None - Recreational Drug Use Recreational Drug Use: No Recreational Drug Type: Reports: Marijuana/Hashish Other Recreational Drug Type: Patient reports "smoking pot" today Recreational Drug Use Frequency: Daily - Living Situation & Occupation Living situation: Reports: Extended Care Facility H&P Review of Systems - Review of Systems: Review Of Systems: ROS reveals no pertinent complaints other than HPI. Exam - Exam Exam: See Below - Vital Signs Vital Signs: Last Vital Signs Temp 36.1 C 04/20/17 12:53 Pulse 48 L 04/20/17 18:01 Resp 13 04/20/17 18:01 BP 130/61 04/20/17 18:01 Pulse Ox 93 L 04/20/17 18:01 Weight: 101.605 kg - Exam General: Alert, Cooperative HEENT: Mucosa Moist & [place], Posterior Pharynx Clear Neck: Supple, Trachea Midline Lungs: Clear to Auscultation, Normal Respiratory Effort Cardiovascular: Regular Rate, Regular Rhythm GI/Abdominal Exam: Normal Bowel Sounds, Soft, Non-Tender, No Distention Back Exam: Normal Inspection Extremities: Normal Inspection, Non-Tender, No Pedal Edema Skin: Warm, Dry, Intact Neurological: No: Focal Deficit - Patient Data Result Diagrams: 04/20/17 13:59 04/20/17 13:59 *Q Meaningful Use (ADM) - VTE *Q VTE Criteria *Q: - Stroke *Q Stroke Criteria *Q: - AMI *Q AMI Criteria *Q: Problem List Initiated/Reviewed/Updated: Yes Orders Last 24hrs: Active Orders 24 hr Category Date Time Status Antiembolic Devices [RC] PER UNIT ROUTINE Care 04/20/17 19:32 Active Blood Glucose Check, Bedside [RC] TIDMEALS Care 04/20/17 19:32 Active Cardiac Monitoring [RC] CONTINUOUS Care 04/20/17 19:32 Active Oxygen Therapy [RC] PRN Care 04/20/17 19:32 Active Up ad [place] [RC] ASDIRECTED Care 04/20/17 19:32 Active VTE/DVT Education [RC] PER UNIT ROUTINE Care 04/20/17 19:32 Active Vital Signs [RC] Q4H Care 04/20/17 19:32 Active [employer] Diet [DIET] Diet 04/20/17 Breakfast Active CBC W/O DIFF,HEMOGRAM [HEME] AM Lab 04/21/17 05:11 Ordered COMPREHENSIVE METABOLIC PN,CMP [CHEM] AM Lab 04/21/17 05:11 Ordered CULTURE URINE [RM] Routine Lab 04/20/17 19:33 Uncollected DIGOXIN [CHEM] Routine Lab 04/20/17 19:18 Ordered Albuterol/Ipratropium [DuoNeb 3.0-0.5 MG/3 ML] Med 04/20/17 19:23 Active 3 ml NEB Q4HRRT PRN Aspirin Med 04/21/17 09:00 Active 325 mg PO DAILY Digoxin [Lanoxin] Med 04/21/17 09:00 Ordered 250 mcg PO DAILY Ferrous Sulfate Med 04/21/17 09:00 Ordered 325 mg PO DAILY Fluticasone/Vilanterol Med 04/21/17 09:00 Ordered 1 inhalation IH DAILY Insulin Aspart [NovoLOG] Med 04/20/17 19:45 Ordered See Protocol SUBCUT TIDAC Insulin Glarg,Human.Rec.Analog [LantUS Solostar] Med 04/20/17 21:00 Ordered 22 units SUBCUT BEDTIME Levothyroxine [Synthroid] Med 04/21/17 09:00 Ordered 50 mcg PO DAILY Metoprolol Tartrate [Lopressor] Med 04/20/17 22:00 Ordered 75 mg PO TID Mirtazapine [Mirtazapine] Med 04/21/17 09:00 Ordered 45 mg PO DAILY PARoxetine HCl [Paroxetine HCl] Med 04/21/17 09:00 Ordered 40 mg PO DAILY Rivaroxaban [Xarelto] Med 04/21/17 09:00 Ordered 15 mg PO DAILY amLODIPine Med 04/21/17 09:00 Ordered 10 mg PO DAILY atorvaSTATin [Lipitor] Med 04/20/17 21:00 Active 40 mg PO BEDTIME cefTRIAXone [Rocephin] Med 04/21/17 19:31 Ordered 1,000 mg IVPUSH Q24H cloNIDine [Catapres-TTS 1] Med 04/22/17 09:00 Ordered 0.3 mg TRDERM FR@0900 fentaNYL [Duragesic] Med 04/20/17 19:30 Ordered 25 mcg TRDERM Q72H predniSONE Med 04/21/17 09:00 Ordered 10 mg PO DAILY Sequential Compression Device [OM.PC] Per Unit Routine Oth 04/20/17 19:32 Ordered Resuscitation Status Routine Resus Stat 04/20/17 19:32 Ordered Medication Orders Albuterol/Ipratropium (Duoneb 3.0-0.5 Mg/3 Ml) 3 ml NEB Q4HRRT PRN PRN Reason: SOB/wheezing Aspirin (Aspirin) 325 mg PO DAILY ADRIAN Atorvastatin Calcium (Lipitor) 40 mg PO BEDTIME ADRIAN Ceftriaxone Sodium (Rocephin) 1,000 mg IVPUSH Q24H [facility] Clonidine HCl (Catapres-Tts 1) 0.3 mg TRDERM FR@0900 [facility] Digoxin (Lanoxin) 250 mcg PO DAILY [facility] Fentanyl (Duragesic) 25 mcg TRDERM Q72H [facility] Ferrous Sulfate (Ferrous Sulfate) 325 mg PO DAILY [facility] Insulin Glargine (Lantus Solostar) 22 units SUBCUT BEDTIME [facility] Levothyroxine Sodium (Synthroid) 50 mcg PO DAILY [facility] Metoprolol Tartrate (Lopressor) 75 mg PO TID [facility] Non-Formulary Medication (Amlodipine) 10 mg PO DAILY [facility] Non-Formulary Medication (Fluticasone/Vilanterol) 1 inhalation IH DAILY [facility] Non-Formulary Medication (Mirtazapine [Mirtazapine]) 45 mg PO DAILY [facility] Non-Formulary Medication (Paroxetine Hcl [Paroxetine Hcl]) 40 mg PO DAILY [facility] Prednisone (Prednisone) 10 mg PO DAILY [facility] Rivaroxaban (Xarelto) 15 mg PO DAILY [facility] Assessment/Plan Comment:: 56 yo female resident of [facility] who is being admitted for UTI. We will be treating with Rocephin. Urine culture ordered. Will resume home medications for her atrial fibrillation, CAD and DM.
[2017-04-20] MEDS: Insulin Aspart 100 Units/ML 3 ML Pen SUBCUT SCH (20:28)
[2017-04-20] MEDS: atorvaSTATin 40 MG Tab PO SCH (22:01)
[2017-04-20] MEDS: Insulin Glargine,Human Rec. Analog 100 Units/ML 3 ML Pen SUBCUT SCH (22:02)
[2017-04-20] MEDS: Metoprolol Tartrate 25 MG Tab PO SCH (22:04)
--- NOTE | 2017-04-21 00:37 | PCM.SN ---
- Free Text/Narrative Note: The patient is a 56-year-old lady who was admitted earlier this evening secondary to weakness from urinary tract infection. The patient had been given 1 g of Rocephin in the emergency department as a part of the initial treatment along with fluid resuscitation. The patient is a resident at half-way secondary to history of CVA, atrial fibrillation, coronary artery disease, diabetes and hypertension. The patient is also urinary incontinence. The patient is currently anticoagulated with Xarelto. I was called in to evaluate the patient secondary to digoxin level elevated at 4.37 ng/mL and an EKG showing likely changes secondary to digoxin. The patient is awake and alert. She has no pain. She has no shortness of breath. While in the half-way the patient had been taking digoxin for her atrial fibrillation at 250 g per day. The patient's EKG does show atrial fibrillation with slow ventricular response along with depressed ST segments globally. The patient's potassium is low at 3.4 mmol per liter and I believe this is cardioprotective due to the effects of the digitalis. Because of the patient not having specific arrhythmias of cardiotoxicity to the glycoside I have elected to withhold digitalis binding. Is likely that the patient is chronically dig toxic secondary to her dose of 250 g daily while in the half-way. Review of the literature contains recommendation for not using digitalis binding based on serum digoxin concentration alone. I have ordered the patient to be transferred to ICU for close monitoring and assistance from electronic ICU if necessary. The patient should be continued on telemetry. I've also ordered a troponin to help exclude cardiac ischemia. I'll see the patient later in follow-up and adjust her treatment plan as conditions and information indicates.
[2017-04-21] MEDS ORDERED: Magnesium Sulfate/Water 2 GM in Premix Bag 1 BAG IV ONE ×2 (05:41→22:44)
[2017-04-21] MEDS: Metoprolol Tartrate 25 MG Tab PO SCH ×4 (06:13→23:01)
[2017-04-21] MEDS: Insulin Aspart 100 Units/ML 3 ML Pen SUBCUT SCH ×3 (07:46→18:01)
[2017-04-21] MEDS ORDERED: Digoxin 250 MCG Tab PO SCH (09:00)
[2017-04-21] MEDS: PARoxetine 20 MG Tab PO SCH (09:25)
[2017-04-21] MEDS: Aspirin 325 MG Tab PO SCH (09:25)
[2017-04-21] MEDS: Mirtazapine 15 MG Tab PO SCH (09:25)
[2017-04-21] MEDS: Ferrous Sulfate 325 MG Tab PO SCH (09:25)
[2017-04-21] MEDS: predniSONE 10 MG Tab PO SCH (09:26)
[2017-04-21] MEDS: Rivaroxaban 15 MG Tab PO SCH (09:26)
[2017-04-21] MEDS: Levothyroxine 50 MCG Tab PO SCH (09:26)
[2017-04-21] MEDS: amLODIPine 5 MG Tab PO SCH (09:26)
[2017-04-21] MEDS ORDERED: Lidocaine 2% 5 ML SDV ONE ×2 (10:57→11:13)
--- NOTE | 2017-04-21 11:05 | CONS ---
DATE OF CONSULTATION: DATE OF : 1960 PRIMARY CARE PHYSICIAN: None PCP REASON FOR CONSULTATION: Digoxin toxicity and bradycardia. HISTORY: This is a 56-year-old female with history of stroke x3, history of CAD status post PCI, diabetes, hypertension, history of asplenia as well as chronic persistent atrial fibrillation who has been in the [facility] for the pelvic fracture. She was admitted in February because of being shortness of breath and found to have decompensated congestive heart failure as well as AFib RVR. At that time we decided to change bisoprolol to metoprolol 75 t.i.d. as well as start her on Xarelto 50 mg once a day and digoxin 250 mcg was started and at this time she is going back because of feeling weak and she was found to have UTI with leukocytosis and she was treated with IV antibiotics so far. However there happened to check digoxin level. It was elevated at 4.8 with a creatinine of 1.6 and the digoxin has been on hold since. Repeated digoxin level this morning is coming down to 3.8; however, her vital signs remained stable throughout. Heart rate stays in between 50 to 70s. No significant pause during AFib. The blood pressure still maintained in 110 to 120/80. Her level of mental status seemed to be reasonable to me, however that was the 1st time that I saw her in this admission. When I asked her about how she felt, she stated that she felt slightly better. She feels slightly stronger than yesterday. She denies chest pain, heart raising. No orthopnea. No PND. Her breathing is about the same. PAST MEDICAL HISTORY: CAD status post PCI, history of stroke x3, diabetes, hypertension, history of asplenia, chronic persistent atrial fibrillation, and last time echocardiogram showed possibly decline LV systolic dysfunction 45% to 50%. ALLERGIES: AVIS inhibitor. MEDICATION: Currently, she is on amlodipine 10 mg once a day, aspirin 325 mg once a day, Lipitor 40 mg once a day, metoprolol 75 mg three times a day, clonidine 0.3 mg once a day, digoxin 250 mcg once a day, has been on hold, Lasix 40 mg once a day, Xarelto 15 mg once a day, prednisone 10 mg once a day. SOCIAL HISTORY: She denies smoking, drug use or alcoholic consumption. FAMILY HISTORY: Noncontributory. REVIEW OF SYSTEMS: Positive for weakness and lethargy, otherwise has been negative for 12-point review of systems. PHYSICAL EXAMINATION: VITAL SIGNS: Initial blood pressure is 155/64, currently blood pressure is 122/54, heart rate is ranging between 40-50 and going up to 70s with activities, O2 saturation is 92-95 on 2 L, respirations 18, temperature ranging between 35.9 to 36.9. HEENT: No pallor, no jaundice, no JVD. HEART: Normal S1, S2. No murmur. LUNGS: Crackles bilaterally. ABDOMEN: Soft, nontender. Bowel sounds present. No hepatosplenomegaly. EXTREMITIES: Leg swelling 1+ bilaterally. INVESTIGATIONS: CBC showed WBC of 13, hematocrit of 39, platelet 380. Sodium 150, potassium 3.4, chloride 107, bicarb is 34, BUN 24, creatinine 1.6. GFR 33. Glucose is 111, troponin was 0.10, 0.13, is still in the negative range. Urinalysis show wbc 100-120, digoxin level 4.3, coming down to 3.8. EKG showed atrial fibrillation with a heart rate of 50s and QRS duration is 96. ASSESSMENT AND PLAN: This is a 56-year-old female with history of chronic kidney disease stage 3, diabetes, hypertension, history of stroke, chronic persistent atrial fibrillation, coronary artery disease status post percutaneous coronary intervention, history of asplenia, been treated for urinary tract infection with bradycardia, digoxin toxicity due to chronic kidney disease. I would recommend to stop digoxin and repeat digoxin daily and she should be monitored in the ICU and her vital signs seemed to be stable so far. Heart rate is still in the range of 50-60. I think this seems to be reasonable. Her blood pressure is still holding at 120/60 and otherwise we will continue other medications and I will be following the patient. WALDEMAR VALDEZ /[id number]
--- NOTE | 2017-04-21 12:36 | PCM.SN ---
- Free Text/Narrative Note: IV requested. 22 ga placed R) wrist x 1 attempt dressing and secured with tape
[2017-04-21] MEDS: cefTRIAXone 1 GM in Premix Bag 1 BAG IV SCH (18:33)
[2017-04-21] MEDS ORDERED: cefTRIAXone 1,000 MG VIAL IVPUSH SCH (19:31)
[2017-04-21] MEDS: Insulin Glargine,Human Rec. Analog 100 Units/ML 3 ML Pen SUBCUT SCH (21:11)
[2017-04-21] MEDS: atorvaSTATin 40 MG Tab PO SCH (21:14)
[2017-04-22] MEDS: Insulin Aspart 100 Units/ML 3 ML Pen SUBCUT SCH ×3 (06:29→18:02)
[2017-04-22] MEDS: Metoprolol Tartrate 25 MG Tab PO SCH (07:36)
[2017-04-22] MEDS ORDERED: cloNIDine 0.1 MG/Day Transdermal Patch TRDERM SCH (09:00)
[2017-04-22] MEDS ORDERED: cloNIDine 0.3 MG/Day Transdermal Patch TRDERM SCH (09:00)
[2017-04-22] MEDS: amLODIPine 5 MG Tab PO SCH (09:08)
[2017-04-22] MEDS: Mirtazapine 15 MG Tab PO SCH (09:08)
[2017-04-22] MEDS: Levothyroxine 50 MCG Tab PO SCH (09:08)
[2017-04-22] MEDS: Aspirin 325 MG Tab PO SCH (09:08)
[2017-04-22] MEDS: Rivaroxaban 15 MG Tab PO SCH (09:09)
[2017-04-22] MEDS: predniSONE 10 MG Tab PO SCH (09:09)
[2017-04-22] MEDS: PARoxetine 20 MG Tab PO SCH (09:09)
[2017-04-22] MEDS: Ferrous Sulfate 325 MG Tab PO SCH (09:09)
--- NOTE | 2017-04-22 11:12 | PCM.PN ---
- General Info Date of Service: 04/22/17 Subjective Update: she has felt stronger, HR seemed to be slightly improved but go down to 30-40 when sleeping, BP stable. Functional Status: Reports: Pain Controlled - Review of Systems General: Reports: No Symptoms HEENT: Reports: No Symptoms Pulmonary: Reports: No Symptoms Cardiovascular: Reports: No Symptoms Gastrointestinal: Reports: No Symptoms Genitourinary: Reports: No Symptoms Musculoskeletal: Reports: No Symptoms Skin: Reports: No Symptoms Neurological: Reports: No Symptoms Psychiatric: Reports: No Symptoms - Patient Data Vitals - Most Recent: Last Vital Signs Temp 35.9 C 04/22/17 09:00 Pulse 35 L 04/22/17 07:36 Resp 19 04/22/17 10:00 BP 141/66 H 04/22/17 10:00 Pulse Ox 98 04/22/17 10:00 Weight - Most Recent: 100.8 kg I&O - Last 24 Hours: Intake & Output 04/21/17 04/22/17 04/22/17 22:59 06:59 14:59 Intake Total 910 1380 Output Total 260 100 Balance 650 1280 Lab Results Last 24 Hours: Laboratory Results - last 24 hr 04/21/17 04/21/17 04/21/17 Range/Units 11:45 12:22 17:09 WBC (4.0-11.0) K/uL RBC (4.30-5.90) M/uL Hgb (12.0-16.0) g/dL Hct (36.0-46.0) % MCV (80.0-98.0) fL MCH (27.0-32.0) pg MCHC (31.0-37.0) g/dL RDW Std Deviation (28.0-62.0) fl RDW Coeff of Leia (11.0-15.0) % Plt Count (150-400) K/uL MPV (7.40-12.00) fL Neut % (Auto) (48.0-80.0) % Lymph % (Auto) (16.0-40.0) % [place] % (Auto) (0.0-15.0) % Eos % (Auto) (0.0-7.0) % Baso % (Auto) (0.0-1.5) % Neut # (Auto) (1.4-5.7) K/uL Lymph # (Auto) (0.6-2.4) K/uL [place] # (Auto) (0.0-0.8) K/uL Eos # (Auto) (0.0-0.7) K/uL Baso # (Auto) (0.0-0.1) K/uL Nucleated RBC % /100WBC Nucleated RBCs # K/uL Sodium 148 H (136-146) mmol/L Potassium 3.9 (3.5-5.1) mmol/L Chloride 103 (98-110) mmol/L Carbon Dioxide 35 H (21-31) mmol/L BUN 23 (6.0-23.0) mg/dL Creatinine 1.7 H (0.6-1.5) mg/dL Est Cr Clr Drug Dosing 31.37 mL/min Estimated GFR (MDRD) 30.9 ml/min Glucose 232 H (60-110) mg/dL POC Glucose 198 H 375 H (60-110) mg/dL Calcium 9.4 (8.8-10.8) mg/dL Magnesium (1.5-2.3) mEq/L Digoxin (0.8-2.0) ng/mL 04/21/17 04/21/17 04/22/17 Range/Units 21:10 21:59 05:10 WBC (4.0-11.0) K/uL RBC (4.30-5.90) M/uL Hgb (12.0-16.0) g/dL Hct (36.0-46.0) % MCV (80.0-98.0) fL MCH (27.0-32.0) pg MCHC (31.0-37.0) g/dL RDW Std Deviation (28.0-62.0) fl RDW Coeff of Leia (11.0-15.0) % Plt Count (150-400) K/uL MPV (7.40-12.00) fL Neut % (Auto) (48.0-80.0) % Lymph % (Auto) (16.0-40.0) % [place] % (Auto) (0.0-15.0) % Eos % (Auto) (0.0-7.0) % Baso % (Auto) (0.0-1.5) % Neut # (Auto) (1.4-5.7) K/uL Lymph # (Auto) (0.6-2.4) K/uL [place] # (Auto) (0.0-0.8) K/uL Eos # (Auto) (0.0-0.7) K/uL Baso # (Auto) (0.0-0.1) K/uL Nucleated RBC % /100WBC Nucleated RBCs # K/uL Sodium 144 (136-146) mmol/L Potassium 3.8 (3.5-5.1) mmol/L Chloride 101 (98-110) mmol/L Carbon Dioxide 34 H (21-31) mmol/L BUN 26 H (6.0-23.0) mg/dL Creatinine 1.7 H (0.6-1.5) mg/dL Est Cr Clr Drug Dosing 31.37 mL/min Estimated GFR (MDRD) 30.9 ml/min Glucose 365 H (60-110) mg/dL POC Glucose 321 H (60-110) mg/dL Calcium 9.0 (8.8-10.8) mg/dL Magnesium 1.3 L (1.5-2.3) mEq/L Digoxin 3.11 H 2.76 H (0.8-2.0) ng/mL 04/22/17 04/22/17 04/22/17 Range/Units 05:10 05:10 06:24 WBC 14.51 H (4.0-11.0) K/uL RBC 3.94 L (4.30-5.90) M/uL Hgb 11.8 L (12.0-16.0) g/dL Hct 37.2 (36.0-46.0) % MCV 94.4 (80.0-98.0) fL MCH 29.9 (27.0-32.0) pg MCHC 31.7 (31.0-37.0) g/dL RDW Std Deviation 63.5 H (28.0-62.0) fl RDW Coeff of Leia 18 H (11.0-15.0) % Plt Count 351 (150-400) K/uL MPV 12.00 (7.40-12.00) fL Neut % (Auto) 71.4 (48.0-80.0) % Lymph % (Auto) 14.4 L (16.0-40.0) % [place] % (Auto) 12.3 (0.0-15.0) % Eos % (Auto) 1.6 (0.0-7.0) % Baso % (Auto) 0.3 (0.0-1.5) % Neut # (Auto) 10.4 H (1.4-5.7) K/uL Lymph # (Auto) 2.1 (0.6-2.4) K/uL [place] # (Auto) 1.8 H (0.0-0.8) K/uL Eos # (Auto) 0.2 (0.0-0.7) K/uL Baso # (Auto) 0.0 (0.0-0.1) K/uL Nucleated RBC % 0.5 /100WBC Nucleated RBCs # 0 K/uL Sodium 145 (136-146) mmol/L Potassium 3.5 (3.5-5.1) mmol/L Chloride 103 (98-110) mmol/L Carbon Dioxide 29 (21-31) mmol/L BUN 23 (6.0-23.0) mg/dL Creatinine 1.4 (0.6-1.5) mg/dL Est Cr Clr Drug Dosing 38.10 mL/min Estimated GFR (MDRD) 38.6 ml/min Glucose 185 H (60-110) mg/dL POC Glucose 148 H (60-110) mg/dL Calcium 9.0 (8.8-10.8) mg/dL Magnesium 1.8 (1.5-2.3) mEq/L Digoxin (0.8-2.0) ng/mL Med Orders - Current: Current Medications Albuterol/Ipratropium (Duoneb 3.0-0.5 Mg/3 Ml) 3 ml NEB Q4HRRT PRN PRN Reason: SOB/wheezing Amlodipine Besylate (Norvasc) 10 mg PO DAILY [facility] Last Admin: 04/22/17 09:08 Dose: 10 mg Aspirin (Aspirin) 325 mg PO DAILY [facility] Last Admin: 04/22/17 09:08 Dose: 325 mg Atorvastatin Calcium (Lipitor) 40 mg PO BEDTIME [facility] Last Admin: 04/21/17 21:14 Dose: 40 mg Clonidine HCl (Catapres-Tts 3) 0.3 mg TRDERM FR@0900 [facility] Last Admin: 04/22/17 09:09 Dose: 0.3 mg Fentanyl (Duragesic) 25 mcg TRDERM Q72H [facility] Last Admin: 04/20/17 20:33 Dose: Not Given Ferrous Sulfate (Ferrous Sulfate) 325 mg PO DAILY [facility] Last Admin: 04/22/17 09:09 Dose: 325 mg Ceftriaxone Sodium/Dextrose 1 (gm/ Premix) 50 mls @ 100 mls/hr IV Q24H [facility] Last Admin: 04/21/17 18:33 Dose: 100 mls/hr Potassium Chloride 30 meq/ (Dextrose/Water) 1,015 mls @ 75 mls/hr IV ASDIRECTED [facility] Last Admin: 04/21/17 08:05 Dose: 75 mls/hr Insulin Aspart (Novolog) 0 unit SUBCUT TIDAC [facility] PRN Reason: Protocol Last Admin: 04/22/17 06:29 Dose: Not Given Insulin Glargine (Lantus Solostar) 22 units SUBCUT BEDTIME [facility] Last Admin: 04/21/17 21:11 Dose: 22 units Levothyroxine Sodium (Synthroid) 50 mcg PO DAILY [facility] Last Admin: 04/22/17 09:08 Dose: 50 mcg Metoprolol Tartrate (Lopressor) 25 mg PO TID [facility] Mirtazapine (Remeron) 45 mg PO DAILY [facility] Last Admin: 04/22/17 09:08 Dose: 45 mg Ondansetron HCl (Zofran) 4 mg IVPUSH Q4H PRN PRN Reason: Nausea Paroxetine HCl (Paxil) 40 mg PO DAILY [facility] Last Admin: 04/22/17 09:09 Dose: 40 mg Breo Ellipta Inhaler 1 each INH DAILY [facility] Last Admin: 04/22/17 09:15 Dose: 1 each Potassium Chloride (Klor-Con M20) 40 meq PO BID [facility] Prednisone (Prednisone) 10 mg PO DAILY [facility] Last Admin: 04/22/17 09:09 Dose: 10 mg Rivaroxaban (Xarelto) 15 mg PO DAILY [facility] Last Admin: 04/22/17 09:09 Dose: 15 mg Discontinued Medications Ceftriaxone Sodium (Rocephin) 1,000 mg IVPUSH Q24H [facility] Clonidine HCl (Catapres-Tts 1) 0.3 mg TRDERM FR@0900 [facility] Digoxin (Lanoxin) 250 mcg PO DAILY [facility] Ceftriaxone Sodium 1,000 mg/ (Sodium Chloride) 50 mls @ 200 mls/hr IV ONETIME ONE Stop: 04/20/17 18:29 Last Admin: 04/20/17 19:59 Dose: Not Given Ceftriaxone Sodium 1,000 mg/ (Sodium Chloride) 50 mls @ 200 mls/hr IV ONETIME ONE Stop: 04/20/17 18:48 Last Admin: 04/20/17 19:10 Dose: Not Given Ceftriaxone Sodium/Dextrose 1 (gm/ Premix) 50 mls @ 100 mls/hr IV ONETIME ONE Stop: 04/20/17 19:29 Last Admin: 04/20/17 19:13 Dose: 100 mls/hr Magnesium Sulfate 2 gm/ Premix 50 mls @ 50 mls/hr IV ONETIME ONE Stop: 04/21/17 06:40 Last Admin: 04/21/17 05:57 Dose: 50 mls/hr Magnesium Sulfate 2 gm/ Premix 50 mls @ 25 mls/hr IV ONETIME ONE Stop: 04/22/17 00:43 Last Admin: 04/21/17 23:00 Dose: 25 mls/hr Lidocaine (Xylocaine-Mpf 2%) Confirm Administered Dose 5 ml .ROUTE .STK-MED ONE Stop: 04/21/17 10:58 Last Admin: 04/21/17 11:27 Dose: 5 ml Lidocaine (Xylocaine-Mpf 2%) Confirm Administered Dose 5 ml .ROUTE .STK-MED ONE Stop: 04/21/17 11:14 Last Admin: 04/21/17 11:27 Dose: 5 ml Metoprolol Tartrate (Lopressor) 75 mg PO TID [facility] Last Admin: 04/21/17 14:30 Dose: Not Given Metoprolol Tartrate (Lopressor) 75 mg PO TID [facility] Last Admin: 04/22/17 07:36 Dose: Not Given Potassium Chloride (Klor-Con M20) 40 meq PO BID [facility] - Exam General: Alert, Oriented HEENT: Pupils Equal Neck: Supple Lungs: Rales Cardiovascular: Irregular Rhythm GI/Abdominal Exam: Normal Bowel Sounds, No Distention Extremities: Pedal Edema EKG INTERPRETATION Rhythm: A-Fib - Problem List Review Problem List Initiated/Reviewed/Updated: Yes - My Orders Last 24 Hours: My Active Orders 04/22/17 10:39 Potassium Chloride [Klor-Con M20] 40 meq PO BID 04/22/17 14:00 Metoprolol Tartrate [Lopressor] 25 mg PO TID 04/23/17 05:11 DIGOXIN [CHEM] DAILY 04/24/17 05:11 DIGOXIN [CHEM] DAILY - Plan Plan:: 56F [place] CAD PCI DM HTN chronic persistent afib pelvic fracture with bardycardia dig toxicity 1. bradycardia: digoxin toxicity: dig level came down to 2, her HR was slow at times when sleeping, baseline in 50-60, in afib Echo showed EF 50%, her volume status seemed to be well controlled, continue current dose of lasix - will lower metoprolol 25 BID - continue xarelto 15 - stop digoxin
[2017-04-22] MEDS: Potassium Chloride 20 MEQ Tab.ER PO SCH ×2 (11:49→20:13)
--- NOTE | 2017-04-22 12:55 | PCM.PN ---
- General Info Date of Service: 04/22/17 Admission Dx/Problem (Free Text): Admission Diagnosis/Problem Admission Diagnosis/Problem Weakness Subjective Update: Patient doing well, denies fever or chills, no pain Functional Status: Reports: Pain Controlled - Review of Systems General: Reports: No Symptoms HEENT: Reports: No Symptoms Pulmonary: Reports: No Symptoms Cardiovascular: Reports: No Symptoms Gastrointestinal: Reports: No Symptoms Genitourinary: Reports: No Symptoms Musculoskeletal: Reports: No Symptoms Skin: Reports: No Symptoms Neurological: Reports: No Symptoms Psychiatric: Reports: No Symptoms - Patient Data Vitals - Most Recent: Last Vital Signs Temp 35.9 C 04/22/17 09:00 Pulse 35 L 04/22/17 07:36 Resp 19 04/22/17 12:00 BP 141/60 H 04/22/17 12:00 Pulse Ox 94 L 04/22/17 12:00 Weight - Most Recent: 100.8 kg I&O - Last 24 Hours: Intake & Output 04/21/17 04/22/17 04/22/17 22:59 06:59 14:59 Intake Total 910 1380 Output Total 260 100 Balance 650 1280 Lab Results Last 24 Hours: Laboratory Results - last 24 hr 04/21/17 04/21/17 04/21/17 Range/Units 12:22 17:09 21:10 WBC (4.0-11.0) K/uL RBC (4.30-5.90) M/uL Hgb (12.0-16.0) g/dL Hct (36.0-46.0) % MCV (80.0-98.0) fL MCH (27.0-32.0) pg MCHC (31.0-37.0) g/dL RDW Std Deviation (28.0-62.0) fl RDW Coeff of Leia (11.0-15.0) % Plt Count (150-400) K/uL MPV (7.40-12.00) fL Neut % (Auto) (48.0-80.0) % Lymph % (Auto) (16.0-40.0) % [place] % (Auto) (0.0-15.0) % Eos % (Auto) (0.0-7.0) % Baso % (Auto) (0.0-1.5) % Neut # (Auto) (1.4-5.7) K/uL Lymph # (Auto) (0.6-2.4) K/uL [place] # (Auto) (0.0-0.8) K/uL Eos # (Auto) (0.0-0.7) K/uL Baso # (Auto) (0.0-0.1) K/uL Nucleated RBC % /100WBC Nucleated RBCs # K/uL Sodium 148 H (136-146) mmol/L Potassium 3.9 (3.5-5.1) mmol/L Chloride 103 (98-110) mmol/L Carbon Dioxide 35 H (21-31) mmol/L BUN 23 (6.0-23.0) mg/dL Creatinine 1.7 H (0.6-1.5) mg/dL Est Cr Clr Drug Dosing 31.37 mL/min Estimated GFR (MDRD) 30.9 ml/min Glucose 232 H (60-110) mg/dL POC Glucose 375 H 321 H (60-110) mg/dL Calcium 9.4 (8.8-10.8) mg/dL Magnesium (1.5-2.3) mEq/L Digoxin (0.8-2.0) ng/mL 04/21/17 04/22/17 04/22/17 Range/Units 21:59 05:10 05:10 WBC 14.51 H (4.0-11.0) K/uL RBC 3.94 L (4.30-5.90) M/uL Hgb 11.8 L (12.0-16.0) g/dL Hct 37.2 (36.0-46.0) % MCV 94.4 (80.0-98.0) fL MCH 29.9 (27.0-32.0) pg MCHC 31.7 (31.0-37.0) g/dL RDW Std Deviation 63.5 H (28.0-62.0) fl RDW Coeff of Leia 18 H (11.0-15.0) % Plt Count 351 (150-400) K/uL MPV 12.00 (7.40-12.00) fL Neut % (Auto) 71.4 (48.0-80.0) % Lymph % (Auto) 14.4 L (16.0-40.0) % [place] % (Auto) 12.3 (0.0-15.0) % Eos % (Auto) 1.6 (0.0-7.0) % Baso % (Auto) 0.3 (0.0-1.5) % Neut # (Auto) 10.4 H (1.4-5.7) K/uL Lymph # (Auto) 2.1 (0.6-2.4) K/uL [place] # (Auto) 1.8 H (0.0-0.8) K/uL Eos # (Auto) 0.2 (0.0-0.7) K/uL Baso # (Auto) 0.0 (0.0-0.1) K/uL Nucleated RBC % 0.5 /100WBC Nucleated RBCs # 0 K/uL Sodium 144 (136-146) mmol/L Potassium 3.8 (3.5-5.1) mmol/L Chloride 101 (98-110) mmol/L Carbon Dioxide 34 H (21-31) mmol/L BUN 26 H (6.0-23.0) mg/dL Creatinine 1.7 H (0.6-1.5) mg/dL Est Cr Clr Drug Dosing 31.37 mL/min Estimated GFR (MDRD) 30.9 ml/min Glucose 365 H (60-110) mg/dL POC Glucose (60-110) mg/dL Calcium 9.0 (8.8-10.8) mg/dL Magnesium 1.3 L (1.5-2.3) mEq/L Digoxin 3.11 H 2.76 H (0.8-2.0) ng/mL 04/22/17 04/22/17 04/22/17 Range/Units 05:10 06:24 11:48 WBC (4.0-11.0) K/uL RBC (4.30-5.90) M/uL Hgb (12.0-16.0) g/dL Hct (36.0-46.0) % MCV (80.0-98.0) fL MCH (27.0-32.0) pg MCHC (31.0-37.0) g/dL RDW Std Deviation (28.0-62.0) fl RDW Coeff of Leia (11.0-15.0) % Plt Count (150-400) K/uL MPV (7.40-12.00) fL Neut % (Auto) (48.0-80.0) % Lymph % (Auto) (16.0-40.0) % [place] % (Auto) (0.0-15.0) % Eos % (Auto) (0.0-7.0) % Baso % (Auto) (0.0-1.5) % Neut # (Auto) (1.4-5.7) K/uL Lymph # (Auto) (0.6-2.4) K/uL [place] # (Auto) (0.0-0.8) K/uL Eos # (Auto) (0.0-0.7) K/uL Baso # (Auto) (0.0-0.1) K/uL Nucleated RBC % /100WBC Nucleated RBCs # K/uL Sodium 145 (136-146) mmol/L Potassium 3.5 (3.5-5.1) mmol/L Chloride 103 (98-110) mmol/L Carbon Dioxide 29 (21-31) mmol/L BUN 23 (6.0-23.0) mg/dL Creatinine 1.4 (0.6-1.5) mg/dL Est Cr Clr Drug Dosing 38.10 mL/min Estimated GFR (MDRD) 38.6 ml/min Glucose 185 H (60-110) mg/dL POC Glucose 148 H 179 H (60-110) mg/dL Calcium 9.0 (8.8-10.8) mg/dL Magnesium 1.8 (1.5-2.3) mEq/L Digoxin (0.8-2.0) ng/mL Yuriy Results Last 24 Hours: Reported gram-positive rods blood culture Med Orders - Current: Current Medications Albuterol/Ipratropium (Duoneb 3.0-0.5 Mg/3 Ml) 3 ml NEB Q4HRRT PRN PRN Reason: SOB/wheezing Amlodipine Besylate (Norvasc) 10 mg PO DAILY [facility] Last Admin: 04/22/17 09:08 Dose: 10 mg Aspirin (Aspirin) 325 mg PO DAILY [facility] Last Admin: 04/22/17 09:08 Dose: 325 mg Atorvastatin Calcium (Lipitor) 40 mg PO BEDTIME [facility] Last Admin: 04/21/17 21:14 Dose: 40 mg Clonidine HCl (Catapres-Tts 3) 0.3 mg TRDERM FR@0900 [facility] Last Admin: 04/22/17 09:09 Dose: 0.3 mg Fentanyl (Duragesic) 25 mcg TRDERM Q72H [facility] Last Admin: 04/20/17 20:33 Dose: Not Given Ferrous Sulfate (Ferrous Sulfate) 325 mg PO DAILY [facility] Last Admin: 04/22/17 09:09 Dose: 325 mg Ceftriaxone Sodium/Dextrose 1 (gm/ Premix) 50 mls @ 100 mls/hr IV Q24H [facility] Last Admin: 04/21/17 18:33 Dose: 100 mls/hr Potassium Chloride 30 meq/ (Dextrose/Water) 1,015 mls @ 75 mls/hr IV ASDIRECTED [facility] Last Admin: 04/21/17 08:05 Dose: 75 mls/hr Piperacillin Sod/Tazobactam (Sod 4.5 gm/ Sodium Chloride) 100 mls @ 100 mls/hr IV Q8H [facility] Insulin Aspart (Novolog) 0 unit SUBCUT TIDAC [facility] PRN Reason: Protocol Last Admin: 04/22/17 11:49 Dose: 1 units Insulin Glargine (Lantus Solostar) 22 units SUBCUT BEDTIME [facility] Last Admin: 04/21/17 21:11 Dose: 22 units Levothyroxine Sodium (Synthroid) 50 mcg PO DAILY [facility] Last Admin: 04/22/17 09:08 Dose: 50 mcg Mirtazapine (Remeron) 45 mg PO DAILY [facility] Last Admin: 04/22/17 09:08 Dose: 45 mg Ondansetron HCl (Zofran) 4 mg IVPUSH Q4H PRN PRN Reason: Nausea Paroxetine HCl (Paxil) 40 mg PO DAILY [facility] Last Admin: 04/22/17 09:09 Dose: 40 mg Breo Ellipta Inhaler 1 each INH DAILY [facility] Last Admin: 04/22/17 09:15 Dose: 1 each Potassium Chloride (Klor-Con M20) 40 meq PO BID [facility] Last Admin: 04/22/17 11:49 Dose: 40 meq Prednisone (Prednisone) 10 mg PO DAILY [facility] Last Admin: 04/22/17 09:09 Dose: 10 mg Rivaroxaban (Xarelto) 15 mg PO DAILY [facility] Last Admin: 04/22/17 09:09 Dose: 15 mg Discontinued Medications Ceftriaxone Sodium (Rocephin) 1,000 mg IVPUSH Q24H [facility] Clonidine HCl (Catapres-Tts 1) 0.3 mg TRDERM FR@0900 [facility] Digoxin (Lanoxin) 250 mcg PO DAILY [facility] Ceftriaxone Sodium 1,000 mg/ (Sodium Chloride) 50 mls @ 200 mls/hr IV ONETIME ONE Stop: 04/20/17 18:29 Last Admin: 04/20/17 19:59 Dose: Not Given Ceftriaxone Sodium 1,000 mg/ (Sodium Chloride) 50 mls @ 200 mls/hr IV ONETIME ONE Stop: 04/20/17 18:48 Last Admin: 04/20/17 19:10 Dose: Not Given Ceftriaxone Sodium/Dextrose 1 (gm/ Premix) 50 mls @ 100 mls/hr IV ONETIME ONE Stop: 04/20/17 19:29 Last Admin: 04/20/17 19:13 Dose: 100 mls/hr Magnesium Sulfate 2 gm/ Premix 50 mls @ 50 mls/hr IV ONETIME ONE Stop: 04/21/17 06:40 Last Admin: 04/21/17 05:57 Dose: 50 mls/hr Magnesium Sulfate 2 gm/ Premix 50 mls @ 25 mls/hr IV ONETIME ONE Stop: 04/22/17 00:43 Last Admin: 04/21/17 23:00 Dose: 25 mls/hr Lidocaine (Xylocaine-Mpf 2%) Confirm Administered Dose 5 ml .ROUTE .STK-MED ONE Stop: 04/21/17 10:58 Last Admin: 04/21/17 11:27 Dose: 5 ml Lidocaine (Xylocaine-Mpf 2%) Confirm Administered Dose 5 ml .ROUTE .STK-MED ONE Stop: 04/21/17 11:14 Last Admin: 04/21/17 11:27 Dose: 5 ml Metoprolol Tartrate (Lopressor) 75 mg PO TID [facility] Last Admin: 04/21/17 14:30 Dose: Not Given Metoprolol Tartrate (Lopressor) 75 mg PO TID [facility] Last Admin: 04/22/17 07:36 Dose: Not Given Metoprolol Tartrate (Lopressor) 25 mg PO TID [facility] Potassium Chloride (Klor-Con M20) 40 meq PO BID [facility] - Exam Quality Assessment: Supplemental Oxygen General: Alert, Oriented, Cooperative HEENT: Pupils Equal, Pupils Reactive Neck: Supple, Trachea Midline Lungs: Clear to Auscultation Cardiovascular: Irregular Rhythm, Bradycardia GI/Abdominal Exam: Normal Bowel Sounds, Soft Back Exam: Decreased Range of Motion Extremities: Pedal Edema, Limited Range of Motion Skin: Warm, Dry Psy/Mental Status: Alert - Problem List & Annotations (1) Gram-positive bacteremia SNOMED Code(s): 811295272357 Code(s): R78.81 - BACTEREMIA Status: Acute Priority: High Current Visit : Yes Annotation/Comment:: Noted without signs or symptoms of sepsis. (2) UTI, Urinary tract infectious disease SNOMED Code(s): 74091657 Code(s): N39.0 - URINARY TRACT INFECTION, SITE NOT SPECIFIED Status: Acute Priority: High Current Visit: Yes (3) Atrial fibrillation with slow ventricular response SNOMED Code(s): 41061535, 043549155 Code(s): I48.91 - UNSPECIFIED ATRIAL FIBRILLATION Status: Chronic Priority: High Current Visit: Yes (4) Digoxin toxicity SNOMED Code(s): 44782711 Code(s): T46.0X1A - POISONING BY CARDI-STIM GLYCOS/DRUG SIMLAR ACT, ACC, INIT Status: Acute Priority: High Current Visit: Yes Qualifiers: Encounter type: subsequent encounter Injury intent: accidental or unintentional Qualified Code(s): T46.0X1D - Poisoning by cardiac-stimulant glycosides and drugs of similar action, accidental (unintentional), subsequent encounter (5) Weakness SNOMED Code(s): 84376396 Code(s): R53.1 - WEAKNESS Status: Chronic Priority: Medium Current Visit: Yes (6) Chronic kidney disease, stage II (mild) SNOMED Code(s): 075465142 Code(s): N18.2 - CHRONIC KIDNEY DISEASE, STAGE 2 (MILD) Status: Chronic Priority: Medium Current Visit: Yes - Problem List Review Problem List Initiated/Reviewed/Updated: Yes - My Orders Last 24 Hours: My Active Orders 04/21/17 14:28 Consult to Physical Therapy [PT Evaluation and Treatment] [CONS] Routine 04/22/17 13:00 Piperacillin/Tazobactam [Piperacil-Tazobact] 4.5 gm Sodium Chloride 0.9% [ Normal Saline] 100 ml IV Q8H - Plan Plan:: The patient is a 56-year-old lady with been admitted secondary to weakness secondary to likely urinary tract infection. She is in a fdc secondary to CVA and has chronic weakness and inability to walk. She is bedridden. She's also urinary incontinence. The patient was also noted to have an extremely low heart rate and a significantly abnormal EKG. The patient has been consulted with cardiology. The patient's digoxin level was initially 4.37 and has been trending down. The patient's digoxin has been stopped. Also been noted that she has blood cultures that are currently positive for gram-positive bacilli and speciation is currently pending. I will place the patient on Zosyn out of concern for possible Pseudomonas bacteremia. The patient does not have any evidence of sepsis at this time. I suspect that the patient's dig toxicity was likely secondary to her chronic kidney disease. I've also discussed this with the cotton grader. For now she will remain in the ICU and it's possible that the patient may be appropriate for discharge in 1-2 days depending upon the availability of IV antibiotics. The patient will likely need to be on IV antibiotics as an outpatient for at least 2 weeks.
[2017-04-22] MEDS: Piperacillin/Tazobactam 4.5 GM in Sodium Chloride 0.9% 100 ML IV SCH ×2 (13:23→20:20)
[2017-04-22] MEDS ORDERED: Metoprolol Tartrate 25 MG Tab PO SCH (14:00)
--- NOTE | 2017-04-22 16:45 | ECHO ---
The echocardiogram report can be seen in this patient's EMR (electronic medical records) in the Reports section. The echocardiogram report has been scanned into PACS and can also be seen there. JOAO
--- NOTE | 2017-04-22 16:55 | CR ---
EXAMINATION: Fluoro and ultrasound guided left-sided PICC line placement. HISTORY: Vascular access. TECHNIQUE/FINDINGS: After written informed consent was obtained from the patient using ultrasound an d Fluoro guidance under aseptic conditions utilizing 1% lidocaine as local anesthesia left cephalic v ein was accessed and 5 [place] dual-lumen PICC catheter was deployed with its tip in the distal superi or vena cava. The catheter flushes and withdraws blood well. The catheter is flushed with the dilute d heparin. The catheter secured well. IMPRESSION: Successful Fluoro and ultrasound guided PICC line placement.
[2017-04-22] MEDS: cefTRIAXone 1 GM in Premix Bag 1 BAG IV SCH (19:42)
[2017-04-22] MEDS: atorvaSTATin 40 MG Tab PO SCH (20:13)
[2017-04-22] MEDS: Insulin Glargine,Human Rec. Analog 100 Units/ML 3 ML Pen SUBCUT SCH (20:13)
[2017-04-22] MEDS ORDERED: Potassium Chloride 20 MEQ Tab.ER PO SCH (21:00)
[2017-04-23] MEDS: Piperacillin/Tazobactam 4.5 GM in Sodium Chloride 0.9% 100 ML IV SCH ×2 (05:01→12:00)
[2017-04-23] MEDS: Insulin Aspart 100 Units/ML 3 ML Pen SCH ×2 (08:28→12:21)
[2017-04-23] MEDS: Insulin Aspart 100 Units/ML 3 ML Pen SUBCUT SCH ×2 (08:29→12:20)
[2017-04-23] MEDS: Ferrous Sulfate 325 MG Tab PO SCH (08:34)
[2017-04-23] MEDS: Mirtazapine 15 MG Tab PO SCH (08:34)
[2017-04-23] MEDS: Aspirin 325 MG Tab PO SCH (08:35)
[2017-04-23] MEDS: amLODIPine 5 MG Tab PO SCH (08:35)
[2017-04-23] MEDS: predniSONE 10 MG Tab PO SCH (08:35)
[2017-04-23] MEDS: Rivaroxaban 15 MG Tab PO SCH (08:35)
[2017-04-23] MEDS: PARoxetine 20 MG Tab PO SCH (08:35)
[2017-04-23] MEDS: Potassium Chloride 20 MEQ Tab.ER PO SCH (08:35)
[2017-04-23] MEDS: Levothyroxine 50 MCG Tab PO SCH (08:35)
--- NOTE | 2017-04-23 11:42 | PCM.DCSUM1 ---
Discharge Summary - Discharge Data Discharge Date: 04/23/17 Discharge Disposition: DC/Tfer to SNF 03 Condition: Fair - Discharge Diagnosis/Problem(s) (1) Gram-positive bacteremia SNOMED Code(s): 535937958386 ICD Code: R78.81 - BACTEREMIA Status: Acute Priority: High Current Visit: Yes Problem Details: Noted without signs or symptoms of sepsis. (2) UTI, Urinary tract infectious disease SNOMED Code(s): 25066161 ICD Code: N39.0 - URINARY TRACT INFECTION, SITE NOT SPECIFIED Status: Acute Priority: High Current Visit: Yes (3) Atrial fibrillation with slow ventricular response SNOMED Code(s): 35112337, 100763210 ICD Code: I48.91 - UNSPECIFIED ATRIAL FIBRILLATION Status: Chronic Priority: High Current Visit: Yes (4) Digoxin toxicity SNOMED Code(s): 40897762 ICD Code: T46.0X1A - POISONING BY CARDI-STIM GLYCOS/DRUG SIMLAR ACT, ACC, INIT Status: Acute Priority: High Current Visit: Yes Qualifiers: Encounter type: subsequent encounter Injury intent: accidental or unintentional Qualified Code(s): T46.0X1D - Poisoning by cardiac-stimulant glycosides and drugs of similar action, accidental (unintentional), subsequent encounter (5) Weakness SNOMED Code(s): 76643909 ICD Code: R53.1 - WEAKNESS Status: Chronic Priority: Medium Current Visit: Yes (6) Chronic kidney disease, stage II (mild) SNOMED Code(s): 567780763 ICD Code: N18.2 - CHRONIC KIDNEY DISEASE, STAGE 2 (MILD) Status: Chronic Priority: Medium Current Visit: Yes - Patient Summary/Data Consults: Consultations 04/21/17 09:19 Consult to Physician [CONS] Routine 04/21/17 14:28 Consult to Physical Therapy [PT Evaluation and Treatment] [CONS] Routine Hospital Course: The patient is a 56-year-old lady from [facility] who is currently bedridden and has a history of CVA, atrial fibrillation, coronary artery disease , diabetes mellitus and hypertension. Patient presented primarily out of concern for staff noting that she was more lethargic than usual. The patient had been admitted out of concern for urinary tract infection which was treated with Rocephin. She also had blood cultures obtained and urine cultures. The patient was resumed on her medications for atrial fibrillation and coronary artery disease as well as diabetes. The patient had a digoxin level that was in the toxic range at 4.37 ng/mL. The patient was also found to be bradycardic with a significantly abnormal EKG which was essentially unchanged from July 2016. The cocoa roaster Dr. Barreto was consulted with regards to management of this complex patient. The patient's digoxin and her metoprolol were discontinued. The patient's digoxin level slowly normalized over the course of hospitalization. He's been recommended that the patient not be placed on digoxin or metoprolol for the time being. Suspected that the patient's digoxin became toxic levels secondary to her chronic kidney disease stage II. The patient herself had remained asymptomatic through the hospitalization. The patient was upgraded to intensive care unit secondary to her bradycardia and heard dig toxicity. Digitalis binders were not given as the patient was not hyperkalemic. She was monitored very closely with dig levels and he slowly normalized. The patient also had blood cultures which were reported positive for gram-positive rods and the patient was placed on Zosyn initially at 4.5 g every 8 hours. The patient also had a PICC line installed to better access the patient's system for IV antibiotic infusion. Because of the patient's renal failure this was adjusted down to Zosyn IV 2.25 g every 6 hours. Speciation of this is currently pending. The patient is oxygen dependent and she has been on oxygen at 2 L by nasal cannula and this should continue. The patient also had a hemoglobin A1c that was obtained on day of discharge was 8.4%. The patient's digoxin level was 2.01 ng/dL. This should continue to drop slowly. The patient' s vital signs and otherwise been stable and her baseline pulse rate had improved into the 60s. The patient said that she was not in any pain and she was not having any shortness of breath and that she was at her baseline. The patient felt like she should do it safely go back to [facility]. The patient will be discharged with the medications that she had been taking with the exception of metoprolol and digoxin and she has been placed on Zosyn IV 2.25 g every 6 hours for 14 days. The patient has been recommended to have activity as tolerated considering her old CVA and she is to follow-up with her primary care physician and cardiology as scheduled. The patient is otherwise hemodynamically stable presently and she will be discharged when transportation is available. The patient is also continue with wound care as previously initiated and [facility]. She is also to continue on oxygen support at 2 L via nasal cannula. - Patient Instructions Diet: Diabetic Diet Other/Special Instructions: Oxygen therapy 2 L/m by nasal cannula - Discharge Plan Prescriptions/Med Rec: Piperacillin/Tazobactam [Zosyn] 2.25 gm IV Q6H 14 Days vial Home Medications: Home Meds Levothyroxine [Synthroid] 50 mcg PO DAILY 02/18/15 [History] Multivit-Min/FA/Lycopene/Lut [Complete Multi 50+] 1 tab PO DAILY 02/18/15 [ History] atorvaSTATin [Lipitor] 40 mg PO BEDTIME 02/18/15 [History] metFORMIN [Glucophage] 500 mg PO BID 02/18/15 [History] Albuterol Sulfate [Proair Hfa] 2 puff IH QID PRN 10/16/16 [History] Dulaglutide [Trulicity] 0.75 mg SQ TU@0900 10/16/16 [History] Fluticasone/Vilanterol [Breo Ellipta 100-25 MCG Inhalation Kit] 1 inhalation IH DAILY 10/16/16 [History] Glimepiride [Amaryl] 2 mg PO WITHBREAKFAST 10/16/16 [History] Insulin Glarg,Human.Rec.Analog [LantUS Solostar] 22 units SUBCUT BEDTIME [History] Naproxen Sodium [Aleve] 220 mg PO BID PRN 10/16/16 [History] PARoxetine HCl [Paroxetine HCl] 40 mg PO DAILY 10/16/16 [History] cloNIDine 0.3 mg TD FR@0900 10/16/16 [History] Albuterol/Ipratropium [DuoNeb 3.0-0.5 MG/3 ML] 3 ml NEB Q4HRRT PRN #10 neb 10/21 [Rx] Insulin Aspart [NovoLOG] See Protocol SUBCUT ACBED #1 pen 10/21/16 [Rx] Polyethylene Glycol 3350 [MiraLAX] 17 gm PO DAILY PRN #10 packet 10/21/16 [Rx] Ferrous Sulfate 325 mg PO DAILY 03/05/17 [History] fentaNYL [Duragesic] 25 mcg TRDERM Q72H 03/05/17 [History] Temazepam [Restoril] 15 mg PO BEDTIME 03/07/17 [History] Digoxin [Digox] 250 mcg PO DAILY #30 tablet 03/10/17 [Rx] Prednisone [IJD: Prednisone] 10 mg PO DAILY 04/02/17 [History] Ascorbic Acid 1,000 mg PO DAILY 04/20/17 [History] Aspirin 325 mg PO DAILY 04/20/17 [History] Furosemide [Lasix] 40 mg PO DAILY 04/20/17 [History] Metoprolol Tartrate [Lopressor] 75 mg PO TID 04/20/17 [History] Mirtazapine 45 mg PO DAILY 04/20/17 [History] Rivaroxaban [Xarelto] 15 mg PO DAILY 04/20/17 [History] amLODIPine [Norvasc] 10 mg PO DAILY 04/20/17 [History] Piperacillin/Tazobactam [Zosyn] 2.25 gm IV Q6H 14 Days vial 04/23/17 [Rx] - Discharge Summary/Plan Comment DC Time >30 min.: Yes - Patient Data Vitals - Most Recent: Last Vital Signs Temp 36.5 C 04/23/17 04:00 Pulse 35 L 04/22/17 07:36 Resp 17 04/23/17 11:00 BP 150/69 H 04/23/17 11:00 Pulse Ox 92 L 04/23/17 11:00 Weight - Most Recent: 103 kg I&O - Last 24 hours: Intake & Output 04/22/17 04/23/17 04/23/17 22:59 06:59 14:59 Intake Total 595 500 Balance 595 500 Lab Results - Last 24 hrs: Laboratory Results - last 24 hr 04/22/17 04/22/17 04/23/17 Range/Units 11:48 17:56 05:27 WBC (4.0-11.0) K/uL RBC (4.30-5.90) M/uL Hgb (12.0-16.0) g/dL Hct (36.0-46.0) % MCV (80.0-98.0) fL MCH (27.0-32.0) pg MCHC (31.0-37.0) g/dL RDW Std Deviation (28.0-62.0) fl RDW Coeff of Leia (11.0-15.0) % Plt Count (150-400) K/uL MPV (7.40-12.00) fL Nucleated RBC % /100WBC Nucleated RBCs # K/uL Sodium (136-146) mmol/L Potassium (3.5-5.1) mmol/L Chloride (98-110) mmol/L Carbon Dioxide (21-31) mmol/L BUN (6.0-23.0) mg/dL Creatinine (0.6-1.5) mg/dL Est Cr Clr Drug Dosing mL/min Estimated GFR (MDRD) ml/min Glucose (60-110) mg/dL POC Glucose 179 H 368 H (60-110) mg/dL Hemoglobin A1c (0.0-6.0) % Calcium (8.8-10.8) mg/dL Magnesium (1.5-2.3) mEq/L Digoxin 2.01 H (0.8-2.0) ng/mL 04/23/17 04/23/17 04/23/17 Range/Units 05:27 05:27 05:27 WBC 13.30 H (4.0-11.0) K/uL RBC 3.90 L (4.30-5.90) M/uL Hgb 11.5 L (12.0-16.0) g/dL Hct 37.4 (36.0-46.0) % MCV 95.9 (80.0-98.0) fL MCH 29.5 (27.0-32.0) pg MCHC 30.7 L (31.0-37.0) g/dL RDW Std Deviation 64.9 H (28.0-62.0) fl RDW Coeff of Leia 19 H (11.0-15.0) % Plt Count 387 (150-400) K/uL MPV 11.70 (7.40-12.00) fL Nucleated RBC % 0.4 /100WBC Nucleated RBCs # 0 K/uL Sodium 145 (136-146) mmol/L Potassium 4.1 (3.5-5.1) mmol/L Chloride 103 (98-110) mmol/L Carbon Dioxide 31 (21-31) mmol/L BUN 28 H (6.0-23.0) mg/dL Creatinine 1.6 H (0.6-1.5) mg/dL Est Cr Clr Drug Dosing 33.34 mL/min Estimated GFR (MDRD) 33.1 ml/min Glucose 315 H (60-110) mg/dL POC Glucose (60-110) mg/dL Hemoglobin A1c 8.4 H (0.0-6.0) % Calcium 9.3 (8.8-10.8) mg/dL Magnesium 1.7 (1.5-2.3) mEq/L Digoxin (0.8-2.0) ng/mL 04/23/17 04/23/17 Range/Units 07:38 10:52 WBC (4.0-11.0) K/uL RBC (4.30-5.90) M/uL Hgb (12.0-16.0) g/dL Hct (36.0-46.0) % MCV (80.0-98.0) fL MCH (27.0-32.0) pg MCHC (31.0-37.0) g/dL RDW Std Deviation (28.0-62.0) fl RDW Coeff of Leia (11.0-15.0) % Plt Count (150-400) K/uL MPV (7.40-12.00) fL Nucleated RBC % /100WBC Nucleated RBCs # K/uL Sodium (136-146) mmol/L Potassium (3.5-5.1) mmol/L Chloride (98-110) mmol/L Carbon Dioxide (21-31) mmol/L BUN (6.0-23.0) mg/dL Creatinine (0.6-1.5) mg/dL Est Cr Clr Drug Dosing mL/min Estimated GFR (MDRD) ml/min Glucose (60-110) mg/dL POC Glucose 406 H 197 H (60-110) mg/dL Hemoglobin A1c (0.0-6.0) % Calcium (8.8-10.8) mg/dL Magnesium (1.5-2.3) mEq/L Digoxin (0.8-2.0) ng/mL Med Orders - Current: Current Medications Albuterol/Ipratropium (Duoneb 3.0-0.5 Mg/3 Ml) 3 ml NEB Q4HRRT PRN PRN Reason: SOB/wheezing Amlodipine Besylate (Norvasc) 10 mg PO DAILY [facility] Last Admin: 04/23/17 08:35 Dose: 10 mg Aspirin (Aspirin) 325 mg PO DAILY [facility] Last Admin: 04/23/17 08:35 Dose: 325 mg Atorvastatin Calcium (Lipitor) 40 mg PO BEDTIME [facility] Last Admin: 04/22/17 20:13 Dose: 40 mg Clonidine HCl (Catapres-Tts 3) 0.3 mg TRDERM FR@0900 [facility] Last Admin: 04/22/17 09:09 Dose: 0.3 mg Fentanyl (Duragesic) 25 mcg TRDERM Q72H [facility] Last Admin: 04/20/17 20:33 Dose: Not Given Ferrous Sulfate (Ferrous Sulfate) 325 mg PO DAILY [facility] Last Admin: 04/23/17 08:34 Dose: 325 mg Ceftriaxone Sodium/Dextrose 1 (gm/ Premix) 50 mls @ 100 mls/hr IV Q24H [facility] Last Admin: 04/22/17 19:42 Dose: 100 mls/hr Piperacillin Sod/Tazobactam (Sod 4.5 gm/ Sodium Chloride) 100 mls @ 100 mls/hr IV Q8H [facility] Last Admin: 04/23/17 05:01 Dose: 100 mls/hr Insulin Aspart (Novolog) 0 unit SUBCUT TIDAC [facility] PRN Reason: Protocol Last Admin: 04/23/17 08:29 Dose: Not Given Insulin Aspart (Novolog) 15 unit .XX ACBED [facility] Last Admin: 04/23/17 08:28 Dose: 15 units Insulin Glargine (Lantus Solostar) 22 units SUBCUT BEDTIME [facility] Last Admin: 04/22/17 20:13 Dose: 22 units Levothyroxine Sodium (Synthroid) 50 mcg PO DAILY [facility] Last Admin: 04/23/17 08:35 Dose: 50 mcg Mirtazapine (Remeron) 45 mg PO DAILY [facility] Last Admin: 04/23/17 08:34 Dose: 45 mg Ondansetron HCl (Zofran) 4 mg IVPUSH Q4H PRN PRN Reason: Nausea Paroxetine HCl (Paxil) 40 mg PO DAILY [facility] Last Admin: 04/23/17 08:35 Dose: 40 mg Breo Ellipta Inhaler 1 each INH DAILY [facility] Last Admin: 04/23/17 09:30 Dose: 1 each Potassium Chloride (Klor-Con M20) 40 meq PO BID [facility] Last Admin: 04/23/17 08:35 Dose: 40 meq Prednisone (Prednisone) 10 mg PO DAILY [facility] Last Admin: 04/23/17 08:35 Dose: 10 mg Rivaroxaban (Xarelto) 15 mg PO DAILY [facility] Last Admin: 04/23/17 08:35 Dose: 15 mg Discontinued Medications Ceftriaxone Sodium (Rocephin) 1,000 mg IVPUSH Q24H [facility] Clonidine HCl (Catapres-Tts 1) 0.3 mg TRDERM FR@0900 [facility] Digoxin (Lanoxin) 250 mcg PO DAILY [facility] Ceftriaxone Sodium 1,000 mg/ (Sodium Chloride) 50 mls @ 200 mls/hr IV ONETIME ONE Stop: 04/20/17 18:29 Last Admin: 04/20/17 19:59 Dose: Not Given Ceftriaxone Sodium 1,000 mg/ (Sodium Chloride) 50 mls @ 200 mls/hr IV ONETIME ONE Stop: 04/20/17 18:48 Last Admin: 04/20/17 19:10 Dose: Not Given Ceftriaxone Sodium/Dextrose 1 (gm/ Premix) 50 mls @ 100 mls/hr IV ONETIME ONE Stop: 04/20/17 19:29 Last Admin: 04/20/17 19:13 Dose: 100 mls/hr Magnesium Sulfate 2 gm/ Premix 50 mls @ 50 mls/hr IV ONETIME ONE Stop: 04/21/17 06:40 Last Admin: 04/21/17 05:57 Dose: 50 mls/hr Potassium Chloride 30 meq/ (Dextrose/Water) 1,015 mls @ 75 mls/hr IV ASDIRECTED [facility] Last Admin: 04/21/17 08:05 Dose: 75 mls/hr Magnesium Sulfate 2 gm/ Premix 50 mls @ 25 mls/hr IV ONETIME ONE Stop: 04/22/17 00:43 Last Admin: 04/21/17 23:00 Dose: 25 mls/hr Lidocaine (Xylocaine-Mpf 2%) Confirm Administered Dose 5 ml .ROUTE .STK-MED ONE Stop: 04/21/17 10:58 Last Admin: 04/21/17 11:27 Dose: 5 ml Lidocaine (Xylocaine-Mpf 2%) Confirm Administered Dose 5 ml .ROUTE .STK-MED ONE Stop: 04/21/17 11:14 Last Admin: 04/21/17 11:27 Dose: 5 ml Metoprolol Tartrate (Lopressor) 75 mg PO TID [facility] Last Admin: 04/21/17 14:30 Dose: Not Given Metoprolol Tartrate (Lopressor) 75 mg PO TID [facility] Last Admin: 04/22/17 07:36 Dose: Not Given Metoprolol Tartrate (Lopressor) 25 mg PO TID [facility] Potassium Chloride (Klor-Con M20) 40 meq PO BID [facility] *Q Meaningful Use (DIS) - VTE *Q VTE Criteria *Q: - Stroke *Q Stroke Criteria *Q: - AMI *Q AMI Criteria *Q:
[2017-04-23 13:22] VITALS: BP 179/101
== END 2017-04-23 13:05 | DRG 690 ==
LOC: MW.ED 12:41 → MW.MS 18:16 → MW.ICU 04-21 00:13 → OBSVTOIN 04-21 00:16
PROVIDERS: ADMIT Internal Medicine; ATTEND Internal Medicine
PROC: 02HV33Z Insertion of Infusion Device into Superior Vena Cava, Percutaneous Approach (ICD-10-PCS; principal; 2017-04-22)
PROC: B518ZZA Fluoroscopy of Superior Vena Cava, Guidance (ICD-10-PCS; 2017-04-22)
PROC: B548ZZA Ultrasonography of Superior Vena Cava, Guidance (ICD-10-PCS; 2017-04-22)
DX: N39.0 Urinary tract infection, site not specified (principal); R78.81 Bacteremia; E78.00 Pure hypercholesterolemia, unspecified; E03.9 Hypothyroidism, unspecified; I48.91 Unspecified atrial fibrillation; I10 Essential (primary) hypertension; Z88.8 Allergy status to other drugs, medicaments and biological substances; T46.0X Poisoning by, adverse effect of and underdosing of cardiac-stimulant glycosides and drugs of similar action; R00.1 Bradycardia, unspecified; R53.1 Weakness; I12.9 Hypertensive chronic kidney disease with stage 1 through stage 4 chronic kidney disease, or unspecified chronic kidney disease; N18.2 Chronic kidney disease, stage 2 (mild); E11.9 Type 2 diabetes mellitus without complications; I25.10 Atherosclerotic heart disease of native coronary artery without angina pectoris; R53.83 Other fatigue; Z86.73 Personal history of transient ischemic attack (TIA), and cerebral infarction without residual deficits; Z95.5 Presence of coronary angioplasty implant and graft; Z99.81 Dependence on supplemental oxygen; Z79.899 Other long term (current) drug therapy; Z79.4 Long term (current) use of insulin
CPT/HCPCS: 36415 ×2; 70450; 71020; 80053; 80162; 81001; 82150; 82962; 83605; 83690; 84484; 85025; 87040 ×2; 93005 ×2; 96365; 99285; A9270; G0378 ×2; J0696; J1815 ×2; 36410; 36569; 76937; 76937-26; 77001; 77001-26; 80048; 82330; 83036; 83735; 85027; 87086; 87088; 87186; 93306; 99283; J2543; J3475; J3480; J7030; J7060

== ENCOUNTER 2017-05-11 20:10 | Inpatient (IN) | payer MEDICARE, MEDICAID ==
[2017-05-11] MEDS ORDERED: Sodium Chloride 0.9% 1,000 ML IV SCH (20:15)
[2017-05-11] MEDS ORDERED: Diltiazem 25 MG/5 ML SDV IVPUSH ONE ×2 (20:29→21:52)
[2017-05-11 21:15] LABS: CHLORIDE,CL 101 mmol/L (98-110); SODIUM,NA 151 mmol/L (136-146)
--- NOTE | 2017-05-11 22:02 | EDM.PDOC ---
ED HPI GENERAL MEDICAL PROBLEM - General Chief Complaint: Cardiovascular Problem Stated Complaint: FAST HEART RATE Time Seen by Provider: 05/11/17 22:00 Source of Information: Reports: Patient - History of Present Illness INITIAL COMMENTS - FREE TEXT/NARRATIVE: HISTORY AND PHYSICAL: History of present illness: [Patient presents from [facility] by EMS Patient is known to have atrial fibrillation her rate is been in the 130s, [facility] reports up to 150s, our nurse has seen a short episode in the 160s however she has been ranging from 1:15 to 135 on my observation She did receive Cardizem 20 mg IV with initial good result down to 110 however after approximately 30 minutes rate sped up again to the 130s She denies any symptoms such as fever nausea vomiting diarrhea constipation chest pain shortness breath headache dizziness palpitation about a urine symptoms ] Review of systems: As per history of present illness and below otherwise all systems reviewed and negative. Past medical history: As per history of present illness and as reviewed below otherwise noncontributory. Surgical history: As per history of present illness and as reviewed below otherwise noncontributory. Social history: No reported history of drug or alcohol abuse. Family history: As per history of present illness and as reviewed below otherwise noncontributory. Physical exam: HEENT: Atraumatic, normocephalic, pupils reactive, negative for conjunctival pallor or scleral icterus, mucous membranes moist, throat clear, neck supple, nontender, trachea midline. Lungs: Clear to auscultation, breath sounds equal bilaterally, chest nontender. Heart: S1S2, regular, negative for clicks, rubs, or JVD. Abdomen: Soft, nondistended, nontender. Negative for masses or hepatosplenomegaly. Negative for costovertebral tenderness. Pelvis: Stable nontender. Genitourinary: Deferred. Rectal: Deferred. Extremities: Atraumatic, negative for cords or calf pain. Neurovascular unremarkable. Neuro: Awake, alert, oriented. Cranial nerves II through XII unremarkable. Cerebellum unremarkable. Motor and sensory unremarkable throughout. Exam nonfocal. Diagnostics: []Lab as below EKG Chest 1 view Therapeutics: []Normal saline 1 25 mL per hour Cardizem 20 mg IV Cardizem 25 mg IV Cardizem drip at 5 to titrate Patient admitted to ICU Dr. Layton is in the room evaluating the patient at current Impression: []A. fib with RVR Hypernatremia Renal insufficiency Chronic history of baseline Definitive disposition and diagnosis as appropriate pending reevaluation and review of above. no pain verbalized Pain Score (Numeric/FACES): 0 - Related Data Allergies Allergy/AdvReac Type Severity Reaction Status Date / Time kaylah inhibitor Allergy Airway Uncoded 05/11/17 20:51 Tightness Home Meds: Home Meds Levothyroxine [Synthroid] 50 mcg PO DAILY 02/18/15 [History] Multivit-Min/FA/Lycopene/Lut [Complete Multi 50+] 1 tab PO DAILY 02/18/15 [ History] atorvaSTATin [Lipitor] 40 mg PO BEDTIME 02/18/15 [History] metFORMIN [Glucophage] 500 mg PO BID 02/18/15 [History] Albuterol Sulfate [Proair Hfa] 2 puff IH QID PRN 10/16/16 [History] Dulaglutide [Trulicity] 0.75 mg SQ TU@0900 10/16/16 [History] Fluticasone/Vilanterol [Breo Ellipta 100-25 MCG Inhalation Kit] 1 inhalation IH DAILY 10/16/16 [History] Glimepiride [Amaryl] 2 mg PO WITHBREAKFAST 10/16/16 [History] Insulin Glarg,Human.Rec.Analog [LantUS Solostar] 22 units SUBCUT BEDTIME [History] Naproxen Sodium [Aleve] 220 mg PO BID PRN 10/16/16 [History] PARoxetine HCl [Paroxetine HCl] 40 mg PO DAILY 10/16/16 [History] cloNIDine 0.3 mg TD FR@0900 10/16/16 [History] Albuterol/Ipratropium [DuoNeb 3.0-0.5 MG/3 ML] 3 ml NEB Q4HRRT PRN #10 neb 10/21 [Rx] Insulin Aspart [NovoLOG] See Protocol SUBCUT ACBED #1 pen 10/21/16 [Rx] Polyethylene Glycol 3350 [MiraLAX] 17 gm PO DAILY PRN #10 packet 10/21/16 [Rx] Ferrous Sulfate 325 mg PO DAILY 03/05/17 [History] fentaNYL [Duragesic] 25 mcg TRDERM Q72H 03/05/17 [History] Temazepam [Restoril] 15 mg PO BEDTIME 03/07/17 [History] Digoxin [Digox] 250 mcg PO DAILY #30 tablet 03/10/17 [Rx] Prednisone [IJD: Prednisone] 10 mg PO DAILY 04/02/17 [History] Ascorbic Acid 1,000 mg PO DAILY 04/20/17 [History] Aspirin 325 mg PO DAILY 04/20/17 [History] Furosemide [Lasix] 40 mg PO DAILY 04/20/17 [History] Metoprolol Tartrate [Lopressor] 75 mg PO TID 04/20/17 [History] Mirtazapine 45 mg PO DAILY 04/20/17 [History] Rivaroxaban [Xarelto] 15 mg PO DAILY 04/20/17 [History] amLODIPine [Norvasc] 10 mg PO DAILY 04/20/17 [History] Piperacillin/Tazobactam [Zosyn] 2.25 gm IV Q6H 14 Days vial 04/23/17 [Rx] Past Medical History HEENT History: Reports: None Cardiovascular History: Reports: Afib, CAD, High Cholesterol, Hypertension, [place] Respiratory History: Reports: Asthma, COPD, Other (See Below) Other Respiratory History: Hypoxemia, chronic respiratory failure Gastrointestinal History: Reports: Gastritis Genitourinary History: Reports: Acute Renal Failure, Chronic Renal Insuffiency, UTI, 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 Musculoskeletal History: Reports: Fracture, Osteoporosis, Other (See Below) Other Musculoskeletal History: Restless Leg Syndrome, Hemiplegia and hemiparesis post CVA, frequent falls Neurological History: Reports: CVA, Other (See Below) Other Neuro History: "3 strokes" Psychiatric History: Reports: Anxiety, Depression Endocrine/Metabolic History: Reports: Diabetes, Type II, Hypothyroidism, Osteoporosis Hematologic History: Reports: Anticoagulation Therapy Immunologic History: Reports: None Oncologic (Cancer) History: Reports: None Dermatologic History: Reports: Other (See Below) Other Dermatologic History: chronic open wound to right foot - Infectious Disease History Infectious Disease History: Reports: None - Past Surgical History Female Surgical History: Reports: None Social & Family History - Family History Family Medical History: Noncontributory - Tobacco Use Smoking Status *Q: Never Smoker Second Hand Smoke Exposure: No - Caffeine Use Caffeine Use: Reports: Coffee - Recreational Drug Use Recreational Drug Use: No Drug Use in Last 12 Months: No Recreational Drug Type: Reports: Marijuana/Hashish Other Recreational Drug Type: Patient reports "smoking pot" today Recreational Drug Use Frequency: Daily - Living Situation & Occupation Living situation: Reports: Extended Care Facility ED ROS GENERAL - Review of Systems Review Of Systems: See Below ED EXAM, GENERAL - Physical Exam Exam: See Below Course - Vital Signs Last Recorded V/S: Last Vital Signs Temp 36.1 C 05/11/17 20:10 Pulse 88 05/11/17 22:07 Resp 20 05/11/17 22:15 BP 120/73 05/11/17 22:15 Pulse Ox 91 L 05/11/17 22:15 - Orders/Labs/Meds Orders: Active Orders 24 hr Category Date Time Status EKG Documentation Completion [RC] STAT Care 05/11/17 20:15 Active Chest 1V Frontal [CR] Stat Exams 05/11/17 20:15 Taken Diltiazem [Cardizem] 100 mg Med 05/11/17 23:15 Ordered Sodium Chloride 0.9% [Normal Saline] 100 ml IV TITRATE Sodium Chloride 0.45% 1,000 ml Med 05/11/17 22:30 Active IV ASDIRECTED Medication Orders Sodium Chloride (Sodium Chloride 0.45%) 1,000 mls @ 125 mls/hr IV ASDIRECTED ADRIAN Last Admin: 05/11/17 22:43 Dose: 125 mls/hr Diltiazem HCl 100 mg/ Sodium (Chloride) 100 mls @ 5 mls/hr IV TITRATE ADRIAN; 5 MG /HR PRN Reason: Protocol Labs: Laboratory Tests 05/11/17 05/11/17 05/11/17 Range/Units 20:35 20:35 20:35 WBC 13.69 H (4.0-11.0) K/uL RBC 3.64 L (4.30-5.90) M/uL Hgb 11.3 L (12.0-16.0) g/dL Hct 36.5 (36.0-46.0) % MCV 100.3 H (80.0-98.0) fL MCH 31.0 (27.0-32.0) pg MCHC 31.0 (31.0-37.0) g/dL RDW Std Deviation 75.2 H (28.0-62.0) fl RDW Coeff of Leia 21 H (11.0-15.0) % Plt Count 473 H (150-400) K/uL MPV 12.00 (7.40-12.00) fL Neut % (Auto) 86.3 H (48.0-80.0) % Lymph % (Auto) 8.0 L (16.0-40.0) % [place] % (Auto) 5.2 (0.0-15.0) % Eos % (Auto) 0.3 (0.0-7.0) % Baso % (Auto) 0.2 (0.0-1.5) % Neut # (Auto) 11.8 H (1.4-5.7) K/uL Lymph # (Auto) 1.1 (0.6-2.4) K/uL [place] # (Auto) 0.7 (0.0-0.8) K/uL Eos # (Auto) 0.0 (0.0-0.7) K/uL Baso # (Auto) 0.0 (0.0-0.1) K/uL Nucleated RBC % 1.5 /100WBC Nucleated RBCs # 0 K/uL INR (0.86-1.11) Sodium 151 H (136-146) mmol/L Potassium 3.9 (3.5-5.1) mmol/L Chloride 101 (98-110) mmol/L Carbon Dioxide 32 H (21-31) mmol/L BUN 36 H (6.0-23.0) mg/dL Creatinine 1.9 H (0.6-1.5) mg/dL Est Cr Clr Drug Dosing TNP Estimated GFR (MDRD) 27.2 ml/min Glucose 248 H (60-110) mg/dL Calcium 10.2 (8.8-10.8) mg/dL Total Bilirubin 0.3 (0.1-1.5) mg/dL AST 24 (5-40) IU/L ALT 48 (8-54) IU/L Alkaline Phosphatase 81 (40-150) Troponin I < 0.10 (0.0-0.29) NG/ML B-Natriuretic Peptide (<100) PG/ML Total Protein 6.5 (6.0-8.0) g/dL Albumin 3.4 L (3.5-5.0) g/dL Globulin 3.1 (2.0-3.5) g/dL Albumin/Globulin Ratio 1.1 L (1.3-2.8) Urine Color Urine Appearance Urine pH (5.0-8.0) Ur Specific [place] (1.001-1.035) Urine Protein (NEGATIVE) mg/dL Urine Glucose (UA) (NEGATIVE) mg/dL Urine Ketones (NEGATIVE) mg/dL Urine Occult Blood (NEGATIVE) Urine Nitrite (NEGATIVE) Urine Bilirubin (NEGATIVE) Urine Urobilinogen (<2.0) EU/dL Ur Leukocyte Esterase (NEGATIVE) Urine RBC (0-2/HPF) Urine WBC (0-5/HPF) Ur Epithelial Cells (NONE-FEW) Amorphous Sediment (NEGATIVE) Urine Bacteria (NEGATIVE) 05/11/17 05/11/17 05/11/17 Range/Units 20:35 20:35 22:25 WBC (4.0-11.0) K/uL RBC (4.30-5.90) M/uL Hgb (12.0-16.0) g/dL Hct (36.0-46.0) % MCV (80.0-98.0) fL MCH (27.0-32.0) pg MCHC (31.0-37.0) g/dL RDW Std Deviation (28.0-62.0) fl RDW Coeff of Leia (11.0-15.0) % Plt Count (150-400) K/uL MPV (7.40-12.00) fL Neut % (Auto) (48.0-80.0) % Lymph % (Auto) (16.0-40.0) % [place] % (Auto) (0.0-15.0) % Eos % (Auto) (0.0-7.0) % Baso % (Auto) (0.0-1.5) % Neut # (Auto) (1.4-5.7) K/uL Lymph # (Auto) (0.6-2.4) K/uL [place] # (Auto) (0.0-0.8) K/uL Eos # (Auto) (0.0-0.7) K/uL Baso # (Auto) (0.0-0.1) K/uL Nucleated RBC % /100WBC Nucleated RBCs # K/uL INR 1.18 H (0.86-1.11) Sodium (136-146) mmol/L Potassium (3.5-5.1) mmol/L Chloride (98-110) mmol/L Carbon Dioxide (21-31) mmol/L BUN (6.0-23.0) mg/dL Creatinine (0.6-1.5) mg/dL Est Cr Clr Drug Dosing Estimated GFR (MDRD) ml/min Glucose (60-110) mg/dL Calcium (8.8-10.8) mg/dL Total Bilirubin (0.1-1.5) mg/dL AST (5-40) IU/L ALT (8-54) IU/L Alkaline Phosphatase (40-150) Troponin I (0.0-0.29) NG/ML B-Natriuretic Peptide 104 H (<100) PG/ML Total Protein (6.0-8.0) g/dL Albumin (3.5-5.0) g/dL Globulin (2.0-3.5) g/dL Albumin/Globulin Ratio (1.3-2.8) Urine Color YELLOW Urine Appearance CLEAR Urine pH 5.5 (5.0-8.0) Ur Specific [place] 1.020 (1.001-1.035) Urine Protein NEGATIVE (NEGATIVE) mg/dL Urine Glucose (UA) NEGATIVE (NEGATIVE) mg/dL Urine Ketones NEGATIVE (NEGATIVE) mg/dL Urine Occult Blood NEGATIVE (NEGATIVE) Urine Nitrite NEGATIVE (NEGATIVE) Urine Bilirubin NEGATIVE (NEGATIVE) Urine Urobilinogen 0.2 (<2.0) EU/dL Ur Leukocyte Esterase TRACE (NEGATIVE) Urine RBC 0-1 (0-2/HPF) Urine WBC 0-2 (0-5/HPF) Ur Epithelial Cells FEW (NONE-FEW) Amorphous Sediment MODERATE (NEGATIVE) Urine Bacteria FEW (NEGATIVE) Meds: Medications Generic Name Dose Route Start Last Admin Trade Name Freq PRN Reason Stop Dose Admin Sodium Chloride 1,000 mls @ 125 mls/hr 05/11/17 22:30 05/11/17 22:43 Sodium Chloride 0.45% IV 125 mls/hr ASDIRECTED ADRIAN Administration Diltiazem HCl 100 mg/ Sodium 100 mls @ 5 mls/hr 05/11/17 23:15 Chloride IV TITRATE ADRIAN Protocol 5 MG/HR Discontinued Medications Generic Name Dose Route Start Last Admin Trade Name Freq PRN Reason Stop Dose Admin Diltiazem HCl 20 mg 05/11/17 20:29 05/11/17 20:50 Diltiazem IVPUSH 05/11/17 20:30 20 mg ONETIME ONE Administration Diltiazem HCl 25 mg 05/11/17 21:52 05/11/17 21:59 Diltiazem IVPUSH 05/11/17 21:53 25 mg ONETIME ONE Administration Sodium Chloride 1,000 mls @ 125 mls/hr 05/11/17 20:15 05/11/17 20:49 Normal Saline IV 125 mls/hr STAT ADRIAN Administration Departure - Departure Time of Disposition: 23:05 Disposition: Home, Self-Care 01 Condition: Good Clinical Impression: Atrial fibrillation with RVR Referrals: PCP,None [Primary Care Provider] - Forms: ED Department Discharge - My Orders Last 24 Hours: My Active Orders 05/11/17 20:15 EKG Documentation Completion [RC] STAT Chest 1V Frontal [CR] Stat 05/11/17 22:30 Sodium Chloride 0.45% 1,000 ml IV ASDIRECTED 05/11/17 23:15 Diltiazem [Cardizem] 100 mg Sodium Chloride 0.9% [Normal Saline] 100 ml IV TITRATE - Assessment/Plan Last 24 Hours: My Active Orders 05/11/17 20:15 EKG Documentation Completion [RC] STAT Chest 1V Frontal [CR] Stat 05/11/17 22:30 Sodium Chloride 0.45% 1,000 ml IV ASDIRECTED 05/11/17 23:15 Diltiazem [Cardizem] 100 mg Sodium Chloride 0.9% [Normal Saline] 100 ml IV TITRATE
[2017-05-11] MEDS ORDERED: Sodium Chloride 0.45% 1,000 ML IV SCH (22:30)
[2017-05-11] MEDS: Diltiazem 100 MG in Sodium Chloride 0.9% 100 ML IV SCH (23:13)
--- NOTE | 2017-05-11 23:42 | PCM.HP ---
H&P History of Present Illness - History of Present Illness Initial Comments - Free Text/Narative: 56 yo female [facility] skilled nursing resident with history of CVA, atrial fibrillation, on xarelto, CAD s/p PCI, DM, HTN who presents with palpitations. She felt likely her heart was racing tonight. At the skilled nursing she was noted to have heart rate inthe 150s-160s. She was seen in the ED and give IV Cardizem with improvement of heart rate in the 110-130s. She denies any shortness of breath, chest pain or fevers. no pain verbalized Pain Score (Numeric/FACES): 0 - Related Data Allergies/Adverse Reactions: Allergies Allergy/AdvReac Type Severity Reaction Status Date / Time kaylah inhibitor Allergy Airway Uncoded 05/11/17 20:51 Tightness Home Medications: Home Meds Levothyroxine [Synthroid] 50 mcg PO DAILY 02/18/15 [History] Multivit-Min/FA/Lycopene/Lut [Complete Multi 50+] 1 tab PO DAILY 02/18/15 [ History] atorvaSTATin [Lipitor] 40 mg PO BEDTIME 02/18/15 [History] metFORMIN [Glucophage] 500 mg PO BID 02/18/15 [History] Albuterol Sulfate [Proair Hfa] 2 puff IH QID PRN 10/16/16 [History] Dulaglutide [Trulicity] 0.75 mg SQ TU@0900 10/16/16 [History] Fluticasone/Vilanterol [Breo Ellipta 100-25 MCG Inhalation Kit] 1 inhalation IH DAILY 10/16/16 [History] Glimepiride [Amaryl] 2 mg PO WITHBREAKFAST 10/16/16 [History] Insulin Glarg,Human.Rec.Analog [LantUS Solostar] 22 units SUBCUT BEDTIME [History] Naproxen Sodium [Aleve] 220 mg PO BID PRN 10/16/16 [History] PARoxetine HCl [Paroxetine HCl] 40 mg PO DAILY 10/16/16 [History] cloNIDine 0.3 mg TD FR@0900 10/16/16 [History] Albuterol/Ipratropium [DuoNeb 3.0-0.5 MG/3 ML] 3 ml NEB Q4HRRT PRN #10 neb 10/21 [Rx] Insulin Aspart [NovoLOG] See Protocol SUBCUT ACBED #1 pen 10/21/16 [Rx] Polyethylene Glycol 3350 [MiraLAX] 17 gm PO DAILY PRN #10 packet 10/21/16 [Rx] Ferrous Sulfate 325 mg PO DAILY 03/05/17 [History] fentaNYL [Duragesic] 25 mcg TRDERM Q72H 03/05/17 [History] Temazepam [Restoril] 15 mg PO BEDTIME 03/07/17 [History] Prednisone [IJD: Prednisone] 10 mg PO DAILY 04/02/17 [History] Ascorbic Acid 1,000 mg PO DAILY 04/20/17 [History] Aspirin 325 mg PO DAILY 04/20/17 [History] Furosemide [Lasix] 40 mg PO DAILY 04/20/17 [History] Mirtazapine 45 mg PO DAILY 04/20/17 [History] Rivaroxaban [Xarelto] 15 mg PO DAILY 04/20/17 [History] amLODIPine [Norvasc] 10 mg PO DAILY 04/20/17 [History] Cephalexin [IJD: Cephalexin] 500 mg PO Q12H 11 Days #22 capsule 05/13/17 [Rx] Metoprolol Tartrate [Lopressor] 50 mg PO TID 14 Days #42 tablet 05/13/17 [Rx] Past Medical History HEENT History: Reports: None Cardiovascular History: Reports: Afib, CAD, High Cholesterol, Hypertension, [place] Respiratory History: Reports: Asthma, COPD, Other (See Below) Other Respiratory History: Hypoxemia, chronic respiratory failure Gastrointestinal History: Reports: Gastritis Genitourinary History: Reports: Acute Renal Failure, Chronic Renal Insuffiency, UTI, 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 Musculoskeletal History: Reports: Fracture, Osteoporosis, Other (See Below) Other Musculoskeletal History: Restless Leg Syndrome, Hemiplegia and hemiparesis post CVA, frequent falls Neurological History: Reports: CVA, Other (See Below) Other Neuro History: "3 strokes" Psychiatric History: Reports: Anxiety, Depression Endocrine/Metabolic History: Reports: Diabetes, Type II, Hypothyroidism, Osteoporosis Hematologic History: Reports: Anticoagulation Therapy Immunologic History: Reports: None Oncologic (Cancer) History: Reports: None Dermatologic History: Reports: Other (See Below) Other Dermatologic History: chronic open wound to right foot - Infectious Disease History Infectious Disease History: Reports: None - Past Surgical History Female Surgical History: Reports: None Social & Family History - Family History Family Medical History: Noncontributory - Tobacco Use Smoking Status *Q: Never Smoker Second Hand Smoke Exposure: No - Caffeine Use Caffeine Use: Reports: Coffee - Recreational Drug Use Recreational Drug Use: No Drug Use in Last 12 Months: No Recreational Drug Type: Reports: Marijuana/Hashish Other Recreational Drug Type: Patient reports "smoking pot" today Recreational Drug Use Frequency: Daily - Living Situation & Occupation Living situation: Reports: Extended Care Facility H&P Review of Systems - Review of Systems: Review Of Systems: ROS reveals no pertinent complaints other than HPI. Exam - Exam Exam: See Below - Vital Signs Vital Signs: Last Vital Signs Temp 36.1 C 05/11/17 20:10 Pulse 114 H 05/11/17 23:13 Resp 20 05/11/17 22:15 BP 135/81 05/11/17 23:13 Pulse Ox 91 L 05/11/17 22:15 Weight: 103 kg - Exam General: Alert, Oriented, 4 HEENT: EOMI Lungs: Clear to Auscultation, Normal Respiratory Effort Cardiovascular: Regular Rate, Regular Rhythm GI/Abdominal Exam: Soft, Non-Tender, No Distention, Other (obese) Extremities: Other (kaylah wraps on legs, mild pedal edema, right leg has dorsal ulcer with sorounding edema) - Patient Data Lab Results Last 24 hrs: Laboratory Results - last 24 hr 05/11/17 05/11/17 05/11/17 Range/Units 20:35 20:35 20:35 WBC 13.69 H (4.0-11.0) K/uL RBC 3.64 L (4.30-5.90) M/uL Hgb 11.3 L (12.0-16.0) g/dL Hct 36.5 (36.0-46.0) % MCV 100.3 H (80.0-98.0) fL MCH 31.0 (27.0-32.0) pg MCHC 31.0 (31.0-37.0) g/dL RDW Std Deviation 75.2 H (28.0-62.0) fl RDW Coeff of Leia 21 H (11.0-15.0) % Plt Count 473 H (150-400) K/uL MPV 12.00 (7.40-12.00) fL Neut % (Auto) 86.3 H (48.0-80.0) % Lymph % (Auto) 8.0 L (16.0-40.0) % [place] % (Auto) 5.2 (0.0-15.0) % Eos % (Auto) 0.3 (0.0-7.0) % Baso % (Auto) 0.2 (0.0-1.5) % Neut # (Auto) 11.8 H (1.4-5.7) K/uL Lymph # (Auto) 1.1 (0.6-2.4) K/uL [place] # (Auto) 0.7 (0.0-0.8) K/uL Eos # (Auto) 0.0 (0.0-0.7) K/uL Baso # (Auto) 0.0 (0.0-0.1) K/uL Nucleated RBC % 1.5 /100WBC Nucleated RBCs # 0 K/uL INR (0.86-1.11) Sodium 151 H (136-146) mmol/L Potassium 3.9 (3.5-5.1) mmol/L Chloride 101 (98-110) mmol/L Carbon Dioxide 32 H (21-31) mmol/L BUN 36 H (6.0-23.0) mg/dL Creatinine 1.9 H (0.6-1.5) mg/dL Est Cr Clr Drug Dosing TNP Estimated GFR (MDRD) 27.2 ml/min Glucose 248 H (60-110) mg/dL Calcium 10.2 (8.8-10.8) mg/dL Total Bilirubin 0.3 (0.1-1.5) mg/dL AST 24 (5-40) IU/L ALT 48 (8-54) IU/L Alkaline Phosphatase 81 (40-150) Troponin I < 0.10 (0.0-0.29) NG/ML B-Natriuretic Peptide (<100) PG/ML Total Protein 6.5 (6.0-8.0) g/dL Albumin 3.4 L (3.5-5.0) g/dL Globulin 3.1 (2.0-3.5) g/dL Albumin/Globulin Ratio 1.1 L (1.3-2.8) Urine Color Urine Appearance Urine pH (5.0-8.0) Ur Specific [place] (1.001-1.035) Urine Protein (NEGATIVE) mg/dL Urine Glucose (UA) (NEGATIVE) mg/dL Urine Ketones (NEGATIVE) mg/dL Urine Occult Blood (NEGATIVE) Urine Nitrite (NEGATIVE) Urine Bilirubin (NEGATIVE) Urine Urobilinogen (<2.0) EU/dL Ur Leukocyte Esterase (NEGATIVE) Urine RBC (0-2/HPF) Urine WBC (0-5/HPF) Ur Epithelial Cells (NONE-FEW) Amorphous Sediment (NEGATIVE) Urine Bacteria (NEGATIVE) 05/11/17 05/11/17 05/11/17 Range/Units 20:35 20:35 22:25 WBC (4.0-11.0) K/uL RBC (4.30-5.90) M/uL Hgb (12.0-16.0) g/dL Hct (36.0-46.0) % MCV (80.0-98.0) fL MCH (27.0-32.0) pg MCHC (31.0-37.0) g/dL RDW Std Deviation (28.0-62.0) fl RDW Coeff of Leia (11.0-15.0) % Plt Count (150-400) K/uL MPV (7.40-12.00) fL Neut % (Auto) (48.0-80.0) % Lymph % (Auto) (16.0-40.0) % [place] % (Auto) (0.0-15.0) % Eos % (Auto) (0.0-7.0) % Baso % (Auto) (0.0-1.5) % Neut # (Auto) (1.4-5.7) K/uL Lymph # (Auto) (0.6-2.4) K/uL [place] # (Auto) (0.0-0.8) K/uL Eos # (Auto) (0.0-0.7) K/uL Baso # (Auto) (0.0-0.1) K/uL Nucleated RBC % /100WBC Nucleated RBCs # K/uL INR 1.18 H (0.86-1.11) Sodium (136-146) mmol/L Potassium (3.5-5.1) mmol/L Chloride (98-110) mmol/L Carbon Dioxide (21-31) mmol/L BUN (6.0-23.0) mg/dL Creatinine (0.6-1.5) mg/dL Est Cr Clr Drug Dosing Estimated GFR (MDRD) ml/min Glucose (60-110) mg/dL Calcium (8.8-10.8) mg/dL Total Bilirubin (0.1-1.5) mg/dL AST (5-40) IU/L ALT (8-54) IU/L Alkaline Phosphatase (40-150) Troponin I (0.0-0.29) NG/ML B-Natriuretic Peptide 104 H (<100) PG/ML Total Protein (6.0-8.0) g/dL Albumin (3.5-5.0) g/dL Globulin (2.0-3.5) g/dL Albumin/Globulin Ratio (1.3-2.8) Urine Color YELLOW Urine Appearance CLEAR Urine pH 5.5 (5.0-8.0) Ur Specific [place] 1.020 (1.001-1.035) Urine Protein NEGATIVE (NEGATIVE) mg/dL Urine Glucose (UA) NEGATIVE (NEGATIVE) mg/dL Urine Ketones NEGATIVE (NEGATIVE) mg/dL Urine Occult Blood NEGATIVE (NEGATIVE) Urine Nitrite NEGATIVE (NEGATIVE) Urine Bilirubin NEGATIVE (NEGATIVE) Urine Urobilinogen 0.2 (<2.0) EU/dL Ur Leukocyte Esterase TRACE (NEGATIVE) Urine RBC 0-1 (0-2/HPF) Urine WBC 0-2 (0-5/HPF) Ur Epithelial Cells FEW (NONE-FEW) Amorphous Sediment MODERATE (NEGATIVE) Urine Bacteria FEW (NEGATIVE) Result Diagrams: 05/13/17 06:18 05/13/17 06:18 *Q Meaningful Use (ADM) - VTE *Q VTE Criteria *Q: - Stroke *Q Stroke Criteria *Q: - AMI *Q AMI Criteria *Q: Problem List Initiated/Reviewed/Updated: Yes Orders Last 24hrs: Active Orders 24 hr Category Date Time Status Blood Glucose Check, Bedside [] TIDMEALS Care 05/11/17 23:27 Ordered EKG Documentation Completion [RC] STAT Care 05/11/17 20:15 Active Intake and Output [] QSHIFT Care 05/11/17 23:27 Ordered Oxygen Therapy [] PRN Care 05/11/17 23:27 Ordered VTE/DVT Education [RC] PER UNIT ROUTINE Care 05/11/17 23:27 Ordered Vital Signs [RC] Q4H Care 05/11/17 23:27 Ordered [place] [employer] Diet [DIET] Diet 05/11/17 Breakfast Ordered Chest 1V Frontal [CR] Stat Exams 05/11/17 20:15 Taken BASIC METABOLIC PANEL,BMP [CHEM] AM Lab 05/12/17 05:11 Ordered BASIC METABOLIC PANEL,BMP [CHEM] AM Lab 05/13/17 05:11 Ordered BASIC METABOLIC PANEL,BMP [CHEM] AM Lab 05/14/17 05:11 Ordered BASIC METABOLIC PANEL,BMP [CHEM] Stat Lab 05/12/17 01:00 Ordered CBC WITH AUTO DIFF [HEME] AM Lab 05/12/17 05:11 Ordered CBC WITH AUTO DIFF [HEME] AM Lab 05/13/17 05:11 Ordered CBC WITH AUTO DIFF [HEME] AM Lab 05/14/17 05:11 Ordered Cephalexin [Keflex] Med 05/11/17 23:30 Ordered 500 mg PO Q12H Diltiazem [Cardizem] 100 mg Med 05/11/17 23:15 Active Sodium Chloride 0.9% [Normal Saline] 100 ml IV TITRATE Insulin Aspart [NovoLOG] Med 05/11/17 23:30 Ordered See Protocol SUBCUT TIDAC Insulin Glarg,Human.Rec.Analog [LantUS Solostar] Med 05/12/17 21:00 Ordered 22 units SUBCUT BEDTIME Rivaroxaban [Xarelto] Med 05/12/17 09:00 Ordered 15 mg PO DAILY Sodium Chloride 0.45% 1,000 ml Med 05/11/17 22:30 Active IV ASDIRECTED Resuscitation Status Routine Resus Stat 05/11/17 23:27 Ordered Medication Orders Cephalexin (Keflex) 500 mg PO Q12H ADRIAN Sodium Chloride (Sodium Chloride 0.45%) 1,000 mls @ 125 mls/hr IV ASDIRECTED ADRIAN Last Admin: 05/11/17 22:43 Dose: 125 mls/hr Diltiazem HCl 100 mg/ Sodium (Chloride) 100 mls @ 5 mls/hr IV TITRATE ADRIAN; 5 MG /HR PRN Reason: Protocol Last Admin: 05/11/17 23:13 Dose: 5 mg/hr, 5 mls/hr Insulin Aspart (Novolog) 0 unit SUBCUT TIDAC [facility] PRN Reason: Protocol Insulin Glargine (Lantus Solostar) 22 units SUBCUT BEDTIME ADRIAN Rivaroxaban (Xarelto) 15 mg PO DAILY [facility] Assessment/Plan Comment:: 56 yo female admitted for afib with RVR. A.fib with RVR: Will place on diltiazem drip. Will continue xarelto. digoxin was stopped as well as metoprolol due to admission with dig toxicity and bradycardia earlier this this month Hypernatremia: given IV fluids and holding lasix Acute on chronic kidney disease: will continue to monitor DM: on lantus and sliding scale insulin Right foot cellulitis: will give Keflex
[2017-05-12] MEDS: Cephalexin 500 MG Cap PO SCH ×3 (01:01→22:34)
[2017-05-12] MEDS: Insulin Aspart 100 Units/ML 3 ML Pen SUBCUT SCH ×4 (01:05→17:37)
[2017-05-12] MEDS: Diltiazem 100 MG in Sodium Chloride 0.9% 100 ML IV SCH ×2 (05:16→11:32)
[2017-05-12] MEDS: Metoprolol Tartrate 5 MG/5 ML SDV IVPUSH SCH ×2 (06:12→11:34)
[2017-05-12] MEDS ORDERED: Potassium Chloride 20 MEQ Tab.ER PO ONE (07:02)
--- NOTE | 2017-05-12 08:02 | PCM.PN ---
- General Info Date of Service: 05/12/17 Admission Dx/Problem (Free Text): AF with RVR Subjective Update: patient states heart palpitations have improved but sob is still present. Producing minimal urine. - Review of Systems General: Reports: Weakness Pulmonary: Reports: Shortness of Breath Cardiovascular: Reports: Palpitations. Denies: Chest Pain Genitourinary: Reports: Dysuria, Hematuria Skin: Reports: Other (right foot wound ) - Patient Data Vitals - Most Recent: Last Vital Signs Temp 36.3 C 05/12/17 00:30 Pulse 118 H 05/12/17 06:12 Resp 19 05/12/17 07:00 BP 174/126 H 05/12/17 06:12 Pulse Ox 91 L 05/12/17 07:00 Weight - Most Recent: 107.5 kg I&O - Last 24 Hours: Intake & Output 05/11/17 05/12/17 05/12/17 22:59 06:59 14:59 Intake Total 120 Balance 120 Lab Results Last 24 Hours: Laboratory Results - last 24 hr 05/12/17 05/12/17 05/12/17 Range/Units 01:03 01:10 05:32 WBC 13.59 H (4.0-11.0) K/uL RBC 3.44 L (4.30-5.90) M/uL Hgb 10.4 L (12.0-16.0) g/dL Hct 33.9 L (36.0-46.0) % MCV 98.5 H (80.0-98.0) fL MCH 30.2 (27.0-32.0) pg MCHC 30.7 L (31.0-37.0) g/dL RDW Std Deviation 74.2 H (28.0-62.0) fl RDW Coeff of Leia 21 H (11.0-15.0) % Plt Count 397 (150-400) K/uL MPV 11.70 (7.40-12.00) fL Neut % (Auto) 71.4 (48.0-80.0) % Lymph % (Auto) 18.5 (16.0-40.0) % [place] % (Auto) 7.0 (0.0-15.0) % Eos % (Auto) 2.6 (0.0-7.0) % Baso % (Auto) 0.5 (0.0-1.5) % Neut # (Auto) 9.7 H (1.4-5.7) K/uL Lymph # (Auto) 2.5 H (0.6-2.4) K/uL [place] # (Auto) 1.0 H (0.0-0.8) K/uL Eos # (Auto) 0.4 (0.0-0.7) K/uL Baso # (Auto) 0.1 (0.0-0.1) K/uL Nucleated RBC % 1.7 /100WBC Nucleated RBCs # 0 K/uL Sodium 147 H (136-146) mmol/L Potassium 3.4 L (3.5-5.1) mmol/L Chloride 101 (98-110) mmol/L Carbon Dioxide 31 (21-31) mmol/L BUN 37 H (6.0-23.0) mg/dL Creatinine 1.8 H (0.6-1.5) mg/dL Est Cr Clr Drug Dosing 29.63 mL/min Estimated GFR (MDRD) 28.9 ml/min Glucose 173 H (60-110) mg/dL POC Glucose 181 H (60-110) mg/dL Calcium 9.6 (8.8-10.8) mg/dL Free T4 (0.7-1.48) ng/dL TSH 3rd Generation (0.47-5.0) uIU/mL 05/12/17 05/12/17 Range/Units 05:32 06:54 WBC (4.0-11.0) K/uL RBC (4.30-5.90) M/uL Hgb (12.0-16.0) g/dL Hct (36.0-46.0) % MCV (80.0-98.0) fL MCH (27.0-32.0) pg MCHC (31.0-37.0) g/dL RDW Std Deviation (28.0-62.0) fl RDW Coeff of Leia (11.0-15.0) % Plt Count (150-400) K/uL MPV (7.40-12.00) fL Neut % (Auto) (48.0-80.0) % Lymph % (Auto) (16.0-40.0) % [place] % (Auto) (0.0-15.0) % Eos % (Auto) (0.0-7.0) % Baso % (Auto) (0.0-1.5) % Neut # (Auto) (1.4-5.7) K/uL Lymph # (Auto) (0.6-2.4) K/uL [place] # (Auto) (0.0-0.8) K/uL Eos # (Auto) (0.0-0.7) K/uL Baso # (Auto) (0.0-0.1) K/uL Nucleated RBC % /100WBC Nucleated RBCs # K/uL Sodium 146 (136-146) mmol/L Potassium 3.1 L (3.5-5.1) mmol/L Chloride 102 (98-110) mmol/L Carbon Dioxide 32 H (21-31) mmol/L BUN 35 H (6.0-23.0) mg/dL Creatinine 1.6 H (0.6-1.5) mg/dL Est Cr Clr Drug Dosing 33.34 mL/min Estimated GFR (MDRD) 33.1 ml/min Glucose 125 H (60-110) mg/dL POC Glucose 117 H (60-110) mg/dL Calcium 9.5 (8.8-10.8) mg/dL Free T4 0.84 (0.7-1.48) ng/dL TSH 3rd Generation 6.85 H (0.47-5.0) uIU/mL Med Orders - Current: Current Medications Cephalexin (Keflex) 500 mg PO Q12H ADRIAN Last Admin: 05/12/17 01:01 Dose: 500 mg Sodium Chloride (Sodium Chloride 0.45%) 1,000 mls @ 125 mls/hr IV ASDIRECTED ADRIAN Last Admin: 05/11/17 22:43 Dose: 125 mls/hr Diltiazem HCl 100 mg/ Sodium (Chloride) 100 mls @ 5 mls/hr IV TITRATE ADRIAN; 5 MG /HR PRN Reason: Protocol Last Titration: 05/12/17 07:41 Dose: 15 mg/hr, 15 mls/hr Insulin Aspart (Novolog) 0 unit SUBCUT TIDAC ADRIAN PRN Reason: Protocol Last Admin: 05/12/17 07:34 Dose: Not Given Insulin Glargine (Lantus Solostar) 22 units SUBCUT BEDTIME ADRIAN Metoprolol Tartrate (Lopressor) 5 mg IVPUSH Q6H ADRIAN Last Admin: 05/12/17 06:12 Dose: 5 mg Rivaroxaban (Xarelto) 15 mg PO DAILY ADRIAN Discontinued Medications Diltiazem HCl (Diltiazem) 20 mg IVPUSH ONETIME ONE Stop: 05/11/17 20:30 Last Admin: 05/11/17 20:50 Dose: 20 mg Diltiazem HCl (Diltiazem) 25 mg IVPUSH ONETIME ONE Stop: 05/11/17 21:53 Last Admin: 05/11/17 21:59 Dose: 25 mg Sodium Chloride (Normal Saline) 1,000 mls @ 125 mls/hr IV STAT ADRIAN Last Admin: 05/11/17 20:49 Dose: 125 mls/hr Potassium Chloride (Klor-Con M20) 40 meq PO ONETIME ONE Stop: 05/12/17 07:03 Last Admin: 05/12/17 07:55 Dose: 40 meq - Exam General: Alert, Oriented, Cooperative HEENT: Pupils Equal, Pupils Reactive Neck: Supple, No JVD Lungs: Normal Respiratory Effort Cardiovascular: Irregular Rhythm, Tachycardia Extremities: Other (LLE 3+ edema) Peripheral Pulses: 2+: Carotid (L), Carotid (R) Wound/Incisions: Drainage (right foot dorsum) Neurological: No New Focal Deficit - Problem List Review Problem List Initiated/Reviewed/Updated: Yes - Plan Plan:: 56 yo female admitted for afib with RVR. A.fib with RVR: on diltiazem drip. HR still 100-120. Will continue xarelto. digoxin was stopped as well as metoprolol due to admission with dig toxicity and bradycardia earlier this this month. order echocardiogram as per e-icu. consult Dr. Barreto. Hypernatremia: corrected. DC hypotonic saline. Acute on chronic kidney disease: improving. will continue to monitor. Oliguria: 40 mg Lasix IV single dose for diuresis DM: on lantus and sliding scale insulin Right foot cellulitis: continue keflex. Homer Wrap. Hypokalemia: 40 meq
[2017-05-12] MEDS ORDERED: Sodium Chloride 0.9% 1,000 ML IV SCH (08:30)
[2017-05-12] MEDS: Rivaroxaban 15 MG Tab PO SCH (09:00)
[2017-05-12] MEDS ORDERED: Furosemide 40 MG/4 ML VIAL IVPUSH ONE (09:15)
--- NOTE | 2017-05-12 10:13 | CR ---
EXAM DATE: 05/11/17 PATIENT'S AGE: 56 Patient: COCO REILLY Facility: [place], [place] Site . Site : 1960 Study: XRay Chest [id number]/27/2017 9:13:53 PM Ordering Physician: Doctor Linn Final Report: INDICATION: HYPOXIA, TACHYCARDIA TECHNIQUE: Chest 1 view. COMPARISON: 04/20/2017 FINDINGS: Cardiovascular and mediastinum: Heart size and vasculature are normal in caliber and appearance. Mediastinum is within normal limits. Lungs and pleural space: Lungs are clear. No sign of infiltrate or mass. No sign of pleural effusion. No pneumothorax. Bones and soft tissues: No significant findings. IMPRESSION: Unremarkable chest. Dictated by: Bimal Agarwal MD @ 05/11/2017 21:45:06 (Electronic Signature) Report Signed by Proxy. MEDISYS HEALTH NETWORKMary
[2017-05-12] MEDS: Metoprolol Tartrate 50 MG Tab PO SCH ×2 (16:24→22:33)
[2017-05-12] MEDS ORDERED: Insulin Glargine,Human Rec. Analog 100 Units/ML 3 ML Pen SUBCUT SCH (21:00)
[2017-05-12] MEDS ORDERED: Temazepam 15 MG Cap PO PRN (23:45)
[2017-05-13] MEDS: Metoprolol Tartrate 50 MG Tab PO SCH (05:31)
[2017-05-13] MEDS: Insulin Aspart 100 Units/ML 3 ML Pen SUBCUT SCH ×2 (07:12→11:05)
[2017-05-13] MEDS ORDERED: Pantoprazole 40 MG Tab.CR PO SCH (09:00)
[2017-05-13] MEDS: Rivaroxaban 15 MG Tab PO SCH (10:00)
[2017-05-13] MEDS ORDERED: Potassium Chloride 20 MEQ Tab.ER PO ONE (10:15)
--- NOTE | 2017-05-13 10:33 | PCM.DCSUM1 ---
Discharge Summary - Hospital Course Free Text/Narrative:: 56 yo fm with history of Af admitted on 05/11 for AF with RVR. She is a [facility] resident. She was experiencing palpitations. She was admitted to ICU and placed on Cardizem drip and started on Metoprolol 50 mg TID. Once hr returned to below 100 the drip was stopped. Morning on 05/13 she was asymptomatic and denied any chest pain or palpitations. There is was questionable history regarding digoxin prior to admission. Case was discussed with cardiology who recommended to stop digoxin. She will be discharged home on Metoprolol 50 mg TID. Patient was also noted to have frequent intermittent desaturations during sleep when O2 was noted to be in 60's. This lasted few seconds and she would then come out of it. Follow-up sleep study is recommended. She was also noted to have right foot wound. She will be discharged on Keflex 500 mg BID for 11 days. She should have f/u PCP Dr. Gibson. F/u will also be arranged with Dr. Barreto, cardiology Discharge Diagnosis: 1. AF with RVR, rate controlled 2. Palpitations, resolved 3. Right Foot Wound Infection 4. Intermittent Nocturnal Hypoxia Discharge Plan: 1. DC Digoxin, patient with recent admission for Digoxin Toxicity 2. Metoprolol Tartrate 50 mg PO TID 3. Keflex 50 mg PO BID for 11 days 4. f/u with Dr. Barreto for AF 5. f/u with Dr. Gibson, PCP 6. PT at [place] for strengthening and ambulation 7. Resume regular diet as tolerated 8. Wet to dry dressing of right foot - change daily - Discharge Data Discharge Date: 05/13/17 Discharge Disposition: DC/Tfer to [facility] 03 Condition: Good - Patient Summary/Data Consults: Consultations 05/13/17 10:03 PT Evaluation and Treatment [CONS] Routine - Patient Instructions Diet: Diabetic Diet Activity: As Tolerated Showering/Bathing: May Shower Notify Provider of: Fever, Increased Pain, Swelling and Redness, Drainage, Nausea and/or Vomiting Other/Special Instructions: 1. diabetic diet. 2. PT consult at [place] for strengthening and ambulation. 3. Change right foot dressing daily with wet to dry dressing. 4. f/u with Dr. Barreto. 5. patients care will be resumed by PCP Dr. Gibson. 6. No Digoxin. 7. prescriptions sent to [facility] - Discharge Plan Prescriptions/Med Rec: Cephalexin [IJD: Cephalexin] 500 mg PO Q12H 11 Days #22 capsule Metoprolol Tartrate [Lopressor] 50 mg PO TID 14 Days #42 tablet Home Medications: Home Meds Levothyroxine [Synthroid] 50 mcg PO DAILY 02/18/15 [History] Multivit-Min/FA/Lycopene/Lut [Complete Multi 50+] 1 tab PO DAILY 02/18/15 [ History] atorvaSTATin [Lipitor] 40 mg PO BEDTIME 02/18/15 [History] metFORMIN [Glucophage] 500 mg PO BID 02/18/15 [History] Albuterol Sulfate [Proair Hfa] 2 puff IH QID PRN 10/16/16 [History] Dulaglutide [Trulicity] 0.75 mg SQ TU@0900 10/16/16 [History] Fluticasone/Vilanterol [Breo Ellipta 100-25 MCG Inhalation Kit] 1 inhalation IH DAILY 10/16/16 [History] Glimepiride [Amaryl] 2 mg PO WITHBREAKFAST 10/16/16 [History] Insulin Glarg,Human.Rec.Analog [LantUS Solostar] 22 units SUBCUT BEDTIME [History] Naproxen Sodium [Aleve] 220 mg PO BID PRN 10/16/16 [History] PARoxetine HCl [Paroxetine HCl] 40 mg PO DAILY 10/16/16 [History] cloNIDine 0.3 mg TD FR@0900 10/16/16 [History] Albuterol/Ipratropium [DuoNeb 3.0-0.5 MG/3 ML] 3 ml NEB Q4HRRT PRN #10 neb 10/21 [Rx] Insulin Aspart [NovoLOG] See Protocol SUBCUT ACBED #1 pen 10/21/16 [Rx] Polyethylene Glycol 3350 [MiraLAX] 17 gm PO DAILY PRN #10 packet 10/21/16 [Rx] Ferrous Sulfate 325 mg PO DAILY 03/05/17 [History] fentaNYL [Duragesic] 25 mcg TRDERM Q72H 03/05/17 [History] Temazepam [Restoril] 15 mg PO BEDTIME 03/07/17 [History] Prednisone [IJD: Prednisone] 10 mg PO DAILY 04/02/17 [History] Ascorbic Acid 1,000 mg PO DAILY 04/20/17 [History] Aspirin 325 mg PO DAILY 04/20/17 [History] Furosemide [Lasix] 40 mg PO DAILY 04/20/17 [History] Mirtazapine 45 mg PO DAILY 04/20/17 [History] Rivaroxaban [Xarelto] 15 mg PO DAILY 04/20/17 [History] amLODIPine [Norvasc] 10 mg PO DAILY 04/20/17 [History] Cephalexin [IJD: Cephalexin] 500 mg PO Q12H 11 Days #22 capsule 05/13/17 [Rx] Metoprolol Tartrate [Lopressor] 50 mg PO TID 14 Days #42 tablet 05/13/17 [Rx] Forms: ED Department Discharge Referrals: PCP,None [Primary Care Provider] - - Discharge Summary/Plan Comment DC Time >30 min.: Yes - Patient Data Vitals - Most Recent: Last Vital Signs Temp 36.7 C 05/13/17 08:00 Pulse 91 05/13/17 08:00 Resp 20 05/13/17 08:00 BP 124/78 05/13/17 08:00 Pulse Ox 92 L 05/13/17 08:00 Weight - Most Recent: 107.3 kg I&O - Last 24 hours: Intake & Output 05/12/17 05/13/17 05/13/17 22:59 06:59 14:59 Intake Total 240 200 Output Total 650 Balance -410 200 Lab Results - Last 24 hrs: Laboratory Results - last 24 hr 05/12/17 05/12/17 05/13/17 Range/Units 11:39 17:26 06:18 WBC 10.60 (4.0-11.0) K/uL RBC 3.50 L (4.30-5.90) M/uL Hgb 10.8 L (12.0-16.0) g/dL Hct 35.2 L (36.0-46.0) % MCV 100.6 H (80.0-98.0) fL MCH 30.9 (27.0-32.0) pg MCHC 30.7 L (31.0-37.0) g/dL RDW Std Deviation 75.3 H (28.0-62.0) fl RDW Coeff of Leia 21 H (11.0-15.0) % Plt Count 454 H (150-400) K/uL MPV 11.70 (7.40-12.00) fL Neut % (Auto) 76.1 (48.0-80.0) % Lymph % (Auto) 12.8 L (16.0-40.0) % [place] % (Auto) 7.0 (0.0-15.0) % Eos % (Auto) 3.7 (0.0-7.0) % Baso % (Auto) 0.4 (0.0-1.5) % Neut # (Auto) 8.1 H (1.4-5.7) K/uL Lymph # (Auto) 1.4 (0.6-2.4) K/uL [place] # (Auto) 0.7 (0.0-0.8) K/uL Eos # (Auto) 0.4 (0.0-0.7) K/uL Baso # (Auto) 0.0 (0.0-0.1) K/uL Nucleated RBC % 1.6 /100WBC Nucleated RBCs # 0 K/uL Sodium (136-146) mmol/L Potassium (3.5-5.1) mmol/L Chloride (98-110) mmol/L Carbon Dioxide (21-31) mmol/L BUN (6.0-23.0) mg/dL Creatinine (0.6-1.5) mg/dL Est Cr Clr Drug Dosing mL/min Estimated GFR (MDRD) ml/min Glucose (60-110) mg/dL POC Glucose 201 H 216 H (60-110) mg/dL Calcium (8.8-10.8) mg/dL 05/13/17 Range/Units 06:18 WBC (4.0-11.0) K/uL RBC (4.30-5.90) M/uL Hgb (12.0-16.0) g/dL Hct (36.0-46.0) % MCV (80.0-98.0) fL MCH (27.0-32.0) pg MCHC (31.0-37.0) g/dL RDW Std Deviation (28.0-62.0) fl RDW Coeff of Leia (11.0-15.0) % Plt Count (150-400) K/uL MPV (7.40-12.00) fL Neut % (Auto) (48.0-80.0) % Lymph % (Auto) (16.0-40.0) % [place] % (Auto) (0.0-15.0) % Eos % (Auto) (0.0-7.0) % Baso % (Auto) (0.0-1.5) % Neut # (Auto) (1.4-5.7) K/uL Lymph # (Auto) (0.6-2.4) K/uL [place] # (Auto) (0.0-0.8) K/uL Eos # (Auto) (0.0-0.7) K/uL Baso # (Auto) (0.0-0.1) K/uL Nucleated RBC % /100WBC Nucleated RBCs # K/uL Sodium 144 (136-146) mmol/L Potassium 3.4 L (3.5-5.1) mmol/L Chloride 102 (98-110) mmol/L Carbon Dioxide 29 (21-31) mmol/L BUN 34 H (6.0-23.0) mg/dL Creatinine 1.6 H (0.6-1.5) mg/dL Est Cr Clr Drug Dosing 33.34 mL/min Estimated GFR (MDRD) 33.1 ml/min Glucose 272 H (60-110) mg/dL POC Glucose (60-110) mg/dL Calcium 9.2 (8.8-10.8) mg/dL Med Orders - Current: Current Medications Cephalexin (Keflex) 500 mg PO Q12H ADRIAN Last Admin: 05/12/17 22:34 Dose: 500 mg Diltiazem HCl 100 mg/ Sodium (Chloride) 100 mls @ 5 mls/hr IV TITRATE ADRIAN; 5 MG /HR PRN Reason: Protocol Last Titration: 05/12/17 19:35 Dose: 5 mg/hr, 5 mls/hr Insulin Aspart (Novolog) 0 unit SUBCUT TIDAC ADRIAN PRN Reason: Protocol Last Admin: 05/13/17 07:12 Dose: 6 units Insulin Glargine (Lantus Solostar) 22 units SUBCUT BEDTIME ADRIAN Last Admin: 05/12/17 20:42 Dose: 22 units Metoprolol Tartrate (Lopressor) 50 mg PO TID [facility] Last Admin: 05/13/17 05:31 Dose: 50 mg Pantoprazole Sodium (Protonix) 40 mg PO DAILY [facility] Last Admin: 05/13/17 10:00 Dose: 40 mg Rivaroxaban (Xarelto) 15 mg PO DAILY [facility] Last Admin: 05/13/17 10:00 Dose: 15 mg Temazepam (Restoril) 15 mg PO BEDTIME PRN PRN Reason: Insomnia Last Admin: 05/12/17 23:54 Dose: 15 mg Discontinued Medications Diltiazem HCl (Diltiazem) 20 mg IVPUSH ONETIME ONE Stop: 05/11/17 20:30 Last Admin: 05/11/17 20:50 Dose: 20 mg Diltiazem HCl (Diltiazem) 25 mg IVPUSH ONETIME ONE Stop: 05/11/17 21:53 Last Admin: 05/11/17 21:59 Dose: 25 mg Furosemide (Lasix) 40 mg IVPUSH NOW ONE Stop: 05/12/17 09:16 Last Admin: 05/12/17 09:56 Dose: 40 mg Sodium Chloride (Normal Saline) 1,000 mls @ 125 mls/hr IV STAT [facility] Last Admin: 05/11/17 20:49 Dose: 125 mls/hr Sodium Chloride (Sodium Chloride 0.45%) 1,000 mls @ 125 mls/hr IV ASDIRECTED [facility] Last Admin: 05/11/17 22:43 Dose: 125 mls/hr Sodium Chloride (Normal Saline) 1,000 mls @ 75 mls/hr IV ASDIRECTED [facility] Last Admin: 05/12/17 08:39 Dose: 75 mls/hr Metoprolol Tartrate (Lopressor) 5 mg IVPUSH Q6H [facility] Last Admin: 05/12/17 11:34 Dose: 5 mg Potassium Chloride (Klor-Con M20) 40 meq PO ONETIME ONE Stop: 05/12/17 07:03 Last Admin: 05/12/17 07:55 Dose: 40 meq Potassium Chloride (Klor-Con M20) 20 meq PO ONETIME ONE Stop: 05/13/17 10:16 *Q Meaningful Use (DIS) - VTE *Q VTE Criteria *Q: - Stroke *Q Stroke Criteria *Q: - AMI *Q AMI Criteria *Q:
[2017-05-13] MEDS: Cephalexin 500 MG Cap PO SCH (10:40)
[2017-05-13 12:22] VITALS: BP 147/75
== END 2017-05-13 12:45 | DRG 309 ==
LOC: MW.ED 20:10 → MW.ICU 23:46 → MW.MS 05-13 06:50
PROVIDERS: ADMIT Internal Medicine; ATTEND Internal Medicine
DX: I48.91 Unspecified atrial fibrillation (principal); L03.115 Cellulitis of right lower limb; E87.0 Hyperosmolality and hypernatremia; I69.359 Hemiplegia and hemiparesis following cerebral infarction affecting unspecified side; R00.2 Palpitations; G47.34 Idiopathic sleep related nonobstructive alveolar hypoventilation; I25.10 Atherosclerotic heart disease of native coronary artery without angina pectoris; E11.65 Type 2 diabetes mellitus with hyperglycemia; E86.0 Dehydration; E11.9 Type 2 diabetes mellitus without complications; I12.9 Hypertensive chronic kidney disease with stage 1 through stage 4 chronic kidney disease, or unspecified chronic kidney disease; N18.9 Chronic kidney disease, unspecified; E78.00 Pure hypercholesterolemia, unspecified; J44.9 Chronic obstructive pulmonary disease, unspecified; E03.9 Hypothyroidism, unspecified; I25.2 Old myocardial infarction; F41.8 Other specified anxiety disorders; Z88.8 Allergy status to other drugs, medicaments and biological substances; Z79.899 Other long term (current) drug therapy; Z79.4 Long term (current) use of insulin
CPT/HCPCS: 71010; 80053; 81001; 83880; 84484; 85025; 85610; 93005; 96361; 96365; 96375; 96376; 99285; J3490 ×3; J7030 ×2; J7040; 36415; 80048; 82962; 84439; 84443; 97161-GP; 99283; A9270-GY; J1815-GY; J1940

== ENCOUNTER 2017-05-28 08:48 | Emergency (ER) | payer MEDICARE, MEDICAID ==
--- NOTE | 2017-05-28 08:57 | EDM.PDOC ---
ED HPI GENERAL MEDICAL PROBLEM - General Stated Complaint: AMBULANCE Time Seen by Provider: 05/28/17 08:55 Source of Information: Reports: Patient - History of Present Illness INITIAL COMMENTS - FREE TEXT/NARRATIVE: HISTORY AND PHYSICAL: History of present illness: Patient admitted to [facility] due to CVA history and hemiparesis [facility] staff states she is not feeling well and reported dilated pupils and unresponsive behavior however patient arrives with pupils equal 4 mm alert and talkative States that she does not feel generally well however she never feels generally well per patient I'm seeing the patient within the last couple of weeks admitted her 2 weeks ago for A. fib with RVR she appears to be at baseline at current denies fever nausea vomiting diarrhea constipation chest pain shortness breath headache dizziness or palpitation no bowel or urine symptoms Review of systems: As per history of present illness and below otherwise all systems reviewed and negative. Past medical history: As per history of present illness and as reviewed below otherwise noncontributory. Surgical history: As per history of present illness and as reviewed below otherwise noncontributory. Social history: No reported history of drug or alcohol abuse. Family history: As per history of present illness and as reviewed below otherwise noncontributory. Physical exam: HEENT: Atraumatic, normocephalic, pupils reactive, negative for conjunctival pallor or scleral icterus, mucous membranes moist, throat clear, neck supple, nontender, trachea midline. Lungs: Clear to auscultation, breath sounds equal bilaterally, chest nontender. Heart: S1S2, regular, negative for clicks, rubs, or JVD. Abdomen: Soft, nondistended, nontender. Negative for masses or hepatosplenomegaly. Negative for costovertebral tenderness. Pelvis: Stable nontender. Genitourinary: Deferred. Rectal: Deferred. Extremities: Atraumatic, negative for cords or calf pain. Neurovascular unremarkable. Neuro: Awake, alert, oriented. Cranial nerves II through XII unremarkable. Hemiparesis noted unchanged Diagnostics: []Lab as below EKG Chest 1 view Therapeutics: []Levaquin 500 milligrams by mouth now and daily 7 days Impression: UTI Infiltrate on chest x-ray []Chronic history of baseline No altered mental status observed Definitive disposition and diagnosis as appropriate pending reevaluation and review of above. - Related Data Allergies Allergy/AdvReac Type Severity Reaction Status Date / Time kaylah inhibitor Allergy Airway Uncoded 05/11/17 20:51 Tightness Home Meds: Home Meds Levothyroxine [Synthroid] 50 mcg PO DAILY 02/18/15 [History] Multivit-Min/FA/Lycopene/Lut [Complete Multi 50+] 1 tab PO DAILY 02/18/15 [ History] atorvaSTATin [Lipitor] 40 mg PO BEDTIME 02/18/15 [History] metFORMIN [Glucophage] 500 mg PO BID 02/18/15 [History] Albuterol Sulfate [Proair Hfa] 2 puff IH QID PRN 10/16/16 [History] Dulaglutide [Trulicity] 0.75 mg SQ TU@0900 10/16/16 [History] Fluticasone/Vilanterol [Breo Ellipta 100-25 MCG Inhalation Kit] 1 inhalation IH DAILY 10/16/16 [History] Glimepiride [Amaryl] 2 mg PO WITHBREAKFAST 10/16/16 [History] Insulin Glarg,Human.Rec.Analog [LantUS Solostar] 22 units SUBCUT BEDTIME [History] Naproxen Sodium [Aleve] 220 mg PO BID PRN 10/16/16 [History] PARoxetine HCl [Paroxetine HCl] 40 mg PO DAILY 10/16/16 [History] cloNIDine 0.3 mg TD FR@0900 10/16/16 [History] Albuterol/Ipratropium [DuoNeb 3.0-0.5 MG/3 ML] 3 ml NEB Q4HRRT PRN #10 neb 10/21 [Rx] Insulin Aspart [NovoLOG] See Protocol SUBCUT ACBED #1 pen 10/21/16 [Rx] Polyethylene Glycol 3350 [MiraLAX] 17 gm PO DAILY PRN #10 packet 10/21/16 [Rx] Ferrous Sulfate 325 mg PO DAILY 03/05/17 [History] fentaNYL [Duragesic] 25 mcg TRDERM Q72H 03/05/17 [History] Temazepam [Restoril] 15 mg PO BEDTIME 03/07/17 [History] Prednisone [IJD: Prednisone] 10 mg PO DAILY 04/02/17 [History] Ascorbic Acid 1,000 mg PO DAILY 04/20/17 [History] Aspirin 325 mg PO DAILY 04/20/17 [History] Furosemide [Lasix] 40 mg PO DAILY 04/20/17 [History] Mirtazapine 45 mg PO DAILY 04/20/17 [History] Rivaroxaban [Xarelto] 15 mg PO DAILY 04/20/17 [History] amLODIPine [Norvasc] 10 mg PO DAILY 04/20/17 [History] Cephalexin [IJD: Cephalexin] 500 mg PO Q12H 11 Days #22 capsule 05/13/17 [Rx] Metoprolol Tartrate [Lopressor] 50 mg PO TID 14 Days #42 tablet 05/13/17 [Rx] Past Medical History HEENT History: Reports: None Cardiovascular History: Reports: Afib, CAD, High Cholesterol, Hypertension, [place] Respiratory History: Reports: Asthma, COPD, Other (See Below) Other Respiratory History: Hypoxemia, chronic respiratory failure Gastrointestinal History: Reports: Gastritis Genitourinary History: Reports: Acute Renal Failure, Chronic Renal Insuffiency, UTI, 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 Musculoskeletal History: Reports: Fracture, Osteoporosis, Other (See Below) Other Musculoskeletal History: Restless Leg Syndrome, Hemiplegia and hemiparesis post CVA, frequent falls Neurological History: Reports: CVA, Other (See Below) Other Neuro History: "3 strokes" Psychiatric History: Reports: Anxiety, Depression Endocrine/Metabolic History: Reports: Diabetes, Type II, Hypothyroidism, Osteoporosis Hematologic History: Reports: Anticoagulation Therapy Immunologic History: Reports: None Oncologic (Cancer) History: Reports: None Dermatologic History: Reports: Other (See Below) Other Dermatologic History: chronic open wound to right foot - Infectious Disease History Infectious Disease History: Reports: None - Past Surgical History Female Surgical History: Reports: None Social & Family History - Family History Family Medical History: Noncontributory - Tobacco Use Smoking Status *Q: Never Smoker Second Hand Smoke Exposure: No - Caffeine Use Caffeine Use: Reports: Coffee - Recreational Drug Use Recreational Drug Use: No Drug Use in Last 12 Months: No Recreational Drug Type: Reports: Marijuana/Hashish Other Recreational Drug Type: Patient reports "smoking pot" today Recreational Drug Use Frequency: Daily - Living Situation & Occupation Living situation: Reports: Extended Care Facility ED ROS GENERAL - Review of Systems Review Of Systems: ROS reveals no pertinent complaints other than HPI. ED EXAM, GENERAL - Physical Exam Exam: See Below Course - Vital Signs Last Recorded V/S: Last Vital Signs Temp 36.6 C 05/28/17 08:50 Pulse 85 05/28/17 08:50 Resp 18 05/28/17 08:50 BP 107/63 05/28/17 08:50 Pulse Ox 95 05/28/17 08:50 - Orders/Labs/Meds Orders: Active Orders 24 hr Category Date Time Status EKG Documentation Completion [RC] STAT Care 05/28/17 08:54 Active Chest 1V Frontal [CR] Stat Exams 05/28/17 08:54 Taken CULTURE URINE [RM] Stat Lab 05/28/17 10:00 Uncollected Levofloxacin [Levaquin] Med 05/28/17 10:01 Once 500 mg PO ONETIME ONE Labs: Laboratory Tests 05/28/17 05/28/17 05/28/17 Range/Units 09:10 09:15 09:15 WBC 14.34 H (4.0-11.0) K/uL RBC 3.55 L (4.30-5.90) M/uL Hgb 11.0 L (12.0-16.0) g/dL Hct 36.6 (36.0-46.0) % MCV 103.1 H (80.0-98.0) fL MCH 31.0 (27.0-32.0) pg MCHC 30.1 L (31.0-37.0) g/dL RDW Std Deviation 71.9 H (28.0-62.0) fl RDW Coeff of Leia 19 H (11.0-15.0) % Plt Count 385 (150-400) K/uL MPV 11.80 (7.40-12.00) fL Neut % (Auto) 79.1 (48.0-80.0) % Lymph % (Auto) 11.0 L (16.0-40.0) % [place] % (Auto) 7.0 (0.0-15.0) % Eos % (Auto) 2.6 (0.0-7.0) % Baso % (Auto) 0.3 (0.0-1.5) % Neut # (Auto) 11.3 H (1.4-5.7) K/uL Lymph # (Auto) 1.6 (0.6-2.4) K/uL [place] # (Auto) 1.0 H (0.0-0.8) K/uL Eos # (Auto) 0.4 (0.0-0.7) K/uL Baso # (Auto) 0.0 (0.0-0.1) K/uL Nucleated RBC % 0.6 /100WBC Nucleated RBCs # 0 K/uL Sodium 150 H (136-146) mmol/L Potassium 3.9 (3.5-5.1) mmol/L Chloride 101 (98-110) mmol/L Carbon Dioxide 37 H (21-31) mmol/L BUN 41 H (6.0-23.0) mg/dL Creatinine 1.4 (0.6-1.5) mg/dL Est Cr Clr Drug Dosing 37.82 mL/min Estimated GFR (MDRD) 38.6 ml/min Glucose 104 (60-110) mg/dL Calcium 9.9 (8.8-10.8) mg/dL Troponin I (0.0-0.29) NG/ML Urine Color YELLOW Urine Appearance SLT CLOUDY Urine pH 5.5 (5.0-8.0) Ur Specific [place] 1.015 (1.001-1.035) Urine Protein NEGATIVE (NEGATIVE) mg/dL Urine Glucose (UA) NEGATIVE (NEGATIVE) mg/dL Urine Ketones NEGATIVE (NEGATIVE) mg/dL Urine Occult Blood TRACE-INTACT (NEGATIVE) Urine Nitrite POSITIVE H (NEGATIVE) Urine Bilirubin NEGATIVE (NEGATIVE) Urine Urobilinogen 0.2 (<2.0) EU/dL Ur Leukocyte Esterase SMALL (NEGATIVE) Urine RBC 2-4 (0-2/HPF) Urine WBC 70-85 (0-5/HPF) Ur Epithelial Cells FEW (NONE-FEW) Urine Bacteria 2+ H (NEGATIVE) 05/28/17 Range/Units 09:15 WBC (4.0-11.0) K/uL RBC (4.30-5.90) M/uL Hgb (12.0-16.0) g/dL Hct (36.0-46.0) % MCV (80.0-98.0) fL MCH (27.0-32.0) pg MCHC (31.0-37.0) g/dL RDW Std Deviation (28.0-62.0) fl RDW Coeff of Leia (11.0-15.0) % Plt Count (150-400) K/uL MPV (7.40-12.00) fL Neut % (Auto) (48.0-80.0) % Lymph % (Auto) (16.0-40.0) % [place] % (Auto) (0.0-15.0) % Eos % (Auto) (0.0-7.0) % Baso % (Auto) (0.0-1.5) % Neut # (Auto) (1.4-5.7) K/uL Lymph # (Auto) (0.6-2.4) K/uL [place] # (Auto) (0.0-0.8) K/uL Eos # (Auto) (0.0-0.7) K/uL Baso # (Auto) (0.0-0.1) K/uL Nucleated RBC % /100WBC Nucleated RBCs # K/uL Sodium (136-146) mmol/L Potassium (3.5-5.1) mmol/L Chloride (98-110) mmol/L Carbon Dioxide (21-31) mmol/L BUN (6.0-23.0) mg/dL Creatinine (0.6-1.5) mg/dL Est Cr Clr Drug Dosing mL/min Estimated GFR (MDRD) ml/min Glucose (60-110) mg/dL Calcium (8.8-10.8) mg/dL Troponin I < 0.10 (0.0-0.29) NG/ML Urine Color Urine Appearance Urine pH (5.0-8.0) Ur Specific [place] (1.001-1.035) Urine Protein (NEGATIVE) mg/dL Urine Glucose (UA) (NEGATIVE) mg/dL Urine Ketones (NEGATIVE) mg/dL Urine Occult Blood (NEGATIVE) Urine Nitrite (NEGATIVE) Urine Bilirubin (NEGATIVE) Urine Urobilinogen (<2.0) EU/dL Ur Leukocyte Esterase (NEGATIVE) Urine RBC (0-2/HPF) Urine WBC (0-5/HPF) Ur Epithelial Cells (NONE-FEW) Urine Bacteria (NEGATIVE) Departure - Departure Time of Disposition: 10:02 Disposition: DC/Tfer to [facility] Condition: Good Clinical Impression: UTI (urinary tract infection), Pulmonary infiltrate on chest x-ray - Discharge Information Referrals: PCP,None [Primary Care Provider] - - My Orders Last 24 Hours: My Active Orders 05/28/17 08:54 EKG Documentation Completion [RC] STAT Chest 1V Frontal [CR] Stat 05/28/17 10:00 CULTURE URINE [RM] Stat 05/28/17 10:01 Levofloxacin [Levaquin] 500 mg PO ONETIME ONE - Assessment/Plan Last 24 Hours: My Active Orders 05/28/17 08:54 EKG Documentation Completion [RC] STAT Chest 1V Frontal [CR] Stat 05/28/17 10:00 CULTURE URINE [RM] Stat 05/28/17 10:01 Levofloxacin [Levaquin] 500 mg PO ONETIME ONE
[2017-05-28] MEDS ORDERED: Levofloxacin 500 MG Tab PO ONE (10:01)
[2017-05-28 10:53] VITALS: BP 120/86
--- NOTE | 2017-05-30 11:02 | CR ---
EXAM DATE: 05/28/17 PATIENT'S AGE: 56 Patient: COCO REILLY Facility: [place], [place] Site . Site : 1960 Study: XRay Chest [id number] 9:34:19 AM Ordering Physician: Doctor Linn Final Report: INDICATION: Fatigue Technique: AP portable chest x-ray. Comparison: Chest x-ray 05/11/2017. Findings: New patchy opacity or infiltrate in the right mid and upper lung and right lower lung. Findings are nonspecific but in the appropriate clinical setting a patchy right lung pneumonia would be a primary consideration. Clinical and laboratory correlation recommended. Followup chest x-ray recommended to ensure resolution. Left lung is grossly clear. Heart is mildly enlarged and stable. Mediastinum is moderately widened but is accentuated by patient rotation to the right. Tortuous aorta. Remainder negative. Dictated by Elgin Early MD @ May 28 2017 9:36AM (Electronic Signature) Report Signed by Proxy. JOAO
== END 2017-05-28 10:35 ==
LOC: MW.ED 08:48
DX: N39.0 Urinary tract infection, site not specified (principal); R91.8 Other nonspecific abnormal finding of lung field; I25.10 Atherosclerotic heart disease of native coronary artery without angina pectoris; E78.00 Pure hypercholesterolemia, unspecified; J44.9 Chronic obstructive pulmonary disease, unspecified; I12.9 Hypertensive chronic kidney disease with stage 1 through stage 4 chronic kidney disease, or unspecified chronic kidney disease; E11.22 Type 2 diabetes mellitus with diabetic chronic kidney disease; N18.9 Chronic kidney disease, unspecified; I25.2 Old myocardial infarction; F32.9 Major depressive disorder, single episode, unspecified; E03.9 Hypothyroidism, unspecified; M81.0 Age-related osteoporosis without current pathological fracture; Z86.73 Personal history of transient ischemic attack (TIA), and cerebral infarction without residual deficits; Z79.01 Long term (current) use of anticoagulants; Z79.4 Long term (current) use of insulin; Z79.82 Long term (current) use of aspirin; Z79.899 Other long term (current) drug therapy; Z88.8 Allergy status to other drugs, medicaments and biological substances
CPT/HCPCS: 36415; 71010; 80048; 81001; 84484; 85025; 87086; 93005; 99285; A9270; 87088; 87186; 99283

== ENCOUNTER 2017-06-12 05:54 | Inpatient (IN) | payer MEDICARE, MEDICAID ==
[2017-06-12] MEDS ORDERED: methylPREDNISolone Sodium Succinate 125 MG/2 ML SDV IVPUSH ONE (05:55)
[2017-06-12] MEDS ORDERED: Furosemide 40 MG/4 ML VIAL IVPUSH ONE (05:55)
[2017-06-12] MEDS ORDERED: Sodium Chloride 0.9% 1,000 ML IV SCH (06:00)
--- NOTE | 2017-06-12 06:14 | EDM.PDOC ---
<Jose Tate - Last Filed: 06/12/17 06:34> ED HPI GENERAL MEDICAL PROBLEM - General Chief Complaint: Respiratory Problem Stated Complaint: SHORTNESS OF BREATH Time Seen by Provider: 06/12/17 06:14 Source of Information: Reports: Patient - History of Present Illness INITIAL COMMENTS - FREE TEXT/NARRATIVE: HISTORY AND PHYSICAL: History of present illness: [Patient with history of CVA, atrial fibrillation CHF diabetes and renal insufficiency presents with hypoxia from [place] home by EMS O2 saturation was 87% [place] she has received 2 DuoNeb's and albuterol from EMS she is 98% on 4 L nasal cannula and in no distress stable to speak clearly No fever nausea vomiting chills sweats no chest pain headache dizziness or palpitation ] Review of systems: As per history of present illness and below otherwise all systems reviewed and negative. Past medical history: As per history of present illness and as reviewed below otherwise noncontributory. Surgical history: As per history of present illness and as reviewed below otherwise noncontributory. Social history: No reported history of drug or alcohol abuse. Family history: As per history of present illness and as reviewed below otherwise noncontributory. Physical exam: HEENT: Atraumatic, normocephalic, pupils reactive, negative for conjunctival pallor or scleral icterus, mucous membranes moist, throat clear, neck supple, nontender, trachea midline. Lungs: Clear to auscultation, breath sounds equal bilaterally, chest nontender. Heart: S1S2, regular, negative for clicks, rubs, or JVD. Abdomen: Soft, nondistended, nontender. Negative for masses or hepatosplenomegaly. Negative for costovertebral tenderness. Pelvis: Stable nontender. Genitourinary: Deferred. Rectal: Deferred. Extremities: Atraumatic, negative for cords or calf pain.4+ edema Neuro: Awake, alert, oriented. Hemiparesis noted on change Diagnostics: [CBC CMP UA troponin and CPK CK-MB INR EKG Chest 1 view ] Therapeutics: [Normal saline TKO Cardiac exam 20 mg IV Lasix 40 mg IV ] Impression: [CHF Atrial fibrillation with RVR Chronic history at baseline] Definitive disposition and diagnosis as appropriate pending reevaluation and review of above. - Related Data Allergies Allergy/AdvReac Type Severity Reaction Status Date / Time kaylah inhibitor Allergy Airway Uncoded 06/12/17 06:01 Tightness Home Meds: Home Meds Levothyroxine [Synthroid] 50 mcg PO ASDIRECTED 02/18/15 [History] Multivit-Min/FA/Lycopene/Lut [Complete Multi 50+] 1 tab PO DAILY 02/18/15 [ History] atorvaSTATin [Lipitor] 40 mg PO BEDTIME 02/18/15 [History] metFORMIN [Glucophage] 500 mg PO BID 02/18/15 [History] Albuterol Sulfate [Proair Hfa] 2 puff IH QID PRN 10/16/16 [History] Dulaglutide [Trulicity] 0.75 mg SQ ASDIRECTED 10/16/16 [History] Glimepiride [Amaryl] 2 mg PO WITHBREAKFAST 10/16/16 [History] Insulin Glarg,Human.Rec.Analog [LantUS Solostar] 22 units SUBCUT BEDTIME [History] Naproxen Sodium [Aleve] 220 mg PO BID PRN 10/16/16 [History] PARoxetine HCl [Paroxetine HCl] 40 mg PO DAILY 10/16/16 [History] cloNIDine 0.3 mg TD ASDIRECTED 10/16/16 [History] Albuterol/Ipratropium [DuoNeb 3.0-0.5 MG/3 ML] 3 ml NEB Q4HRRT PRN #10 neb 10/21 [Rx] Polyethylene Glycol 3350 [MiraLAX] 17 gm PO DAILY PRN #10 packet 10/21/16 [Rx] Ferrous Sulfate 325 mg PO DAILY 03/05/17 [History] fentaNYL [Duragesic] 25 mcg TRDERM Q72H 03/05/17 [History] Temazepam [Restoril] 15 mg PO BEDTIME 03/07/17 [History] Prednisone [IJD: Prednisone] 10 mg PO DAILY 04/02/17 [History] Ascorbic Acid 1,000 mg PO DAILY 04/20/17 [History] Aspirin 325 mg PO DAILY 04/20/17 [History] Furosemide [Lasix] 40 mg PO DAILY 04/20/17 [History] Rivaroxaban [Xarelto] 15 mg PO DAILY 04/20/17 [History] Levothyroxine 75 mcg PO MOWEFR 05/28/17 [History] Metoprolol Tartrate [Lopressor] 75 mg PO TID 05/28/17 [History] Fluticasone/Vilanterol [Breo Ellipta 100-25 MCG Inhalation Kit] 1 puff INH DAILY 06/12/17 [History] Insulin Aspart [NovoLOG] See Protocol SUBCUT ASDIRECTED 06/12/17 [History] Mirtazapine [Remeron] 45 mg PO BEDTIME 06/12/17 [History] Past Medical History HEENT History: Reports: None Cardiovascular History: Reports: Afib, CAD, High Cholesterol, Hypertension, [place] Other Cardiovascular History: atherosclerotic heart dse without angina; Respiratory History: Reports: Asthma, COPD, Other (See Below) Other Respiratory History: Hypoxemia; chronic respiratory failure, unspecified wether hypoxia or hypercapnea Gastrointestinal History: Reports: Gastritis Other Gastrointestinal History: acquired absence of spleen; non-specific gastroenteritis and colitis Genitourinary History: Reports: Acute Renal Failure, Chronic Renal Insuffiency, UTI, 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 Musculoskeletal History: Reports: Fracture, Osteoporosis, Other (See Below) Other Musculoskeletal History: Restless Leg Syndrome, Hemiplegia and hemiparesis post CVA, frequent falls; polymyalgia rheumatica; facial weakness following cerebral infarction Neurological History: Reports: CVA, Other (See Below) Other Neuro History: "3 strokes" Psychiatric History: Reports: Anxiety, Depression Endocrine/Metabolic History: Reports: Diabetes, Type II, Hypothyroidism, Osteoporosis 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 Hematologic History: Reports: Anticoagulation Therapy Immunologic History: Reports: None Oncologic (Cancer) History: Reports: None Dermatologic History: Reports: Other (See Below) Other Dermatologic History: chronic open wound to right foot - Infectious Disease History Infectious Disease History: Reports: None - Past Surgical History Cardiovascular Surgical History: Reports: None Respiratory Surgical History: Reports: None Female Surgical History: Reports: None Endocrine Surgical History: Reports: None Neurological Surgical History: Reports: None Musculoskeletal Surgical History: Reports: None Social & Family History - Family History Family Medical History: Noncontributory - Tobacco Use Smoking Status *Q: Never Smoker Second Hand Smoke Exposure: No - Caffeine Use Caffeine Use: Reports: Coffee - Recreational Drug Use Recreational Drug Use: No Drug Use in Last 12 Months: No Recreational Drug Type: Reports: Marijuana/Hashish Other Recreational Drug Type: Patient reports "smoking pot" today Recreational Drug Use Frequency: Daily - Living Situation & Occupation Living situation: Reports: Extended Care Facility Course - Vital Signs Last Recorded V/S: Last Vital Signs Temp 35.9 C 06/12/17 05:55 Pulse 92 06/12/17 05:55 Resp 27 H 06/12/17 05:55 BP 135/106 H 06/12/17 05:55 Pulse Ox 95 06/12/17 05:55 - Orders/Labs/Meds Orders: Active Orders 24 hr Category Date Time Status EKG Documentation Completion [RC] STAT Care 06/12/17 05:55 Active Chest 1V Frontal [CR] Stat Exams 06/12/17 05:55 Taken UA W/MICROSCOPIC [URIN] Stat Lab 06/12/17 05:55 Uncollected Sodium Chloride 0.9% [Normal Saline] 1,000 ml Med 06/12/17 06:00 Active IV STAT Medication Orders Sodium Chloride (Normal Saline) 1,000 mls @ 30 mls/hr IV STAT ADRIAN Labs: Laboratory Tests 06/12/17 06/12/17 06/12/17 Range/Units 07:10 07:10 07:10 WBC 15.31 H (4.0-11.0) K/uL RBC 3.68 L (4.30-5.90) M/uL Hgb 11.2 L (12.0-16.0) g/dL Hct 37.1 (36.0-46.0) % MCV 100.8 H (80.0-98.0) fL MCH 30.4 (27.0-32.0) pg MCHC 30.2 L (31.0-37.0) g/dL RDW Std Deviation 63.9 H (28.0-62.0) fl RDW Coeff of Leia 17 H (11.0-15.0) % Plt Count 372 (150-400) K/uL MPV 12.00 (7.40-12.00) fL Neut % (Auto) 79.3 (48.0-80.0) % Lymph % (Auto) 11.2 L (16.0-40.0) % [place] % (Auto) 6.2 (0.0-15.0) % Eos % (Auto) 2.9 (0.0-7.0) % Baso % (Auto) 0.4 (0.0-1.5) % Neut # (Auto) 12.1 H (1.4-5.7) K/uL Lymph # (Auto) 1.7 (0.6-2.4) K/uL [place] # (Auto) 1.0 H (0.0-0.8) K/uL Eos # (Auto) 0.5 (0.0-0.7) K/uL Baso # (Auto) 0.1 (0.0-0.1) K/uL Nucleated RBC % 0.5 /100WBC Nucleated RBCs # 0 K/uL INR 1.06 (0.86-1.11) Sodium 147 H (136-146) mmol/L Potassium 3.1 L (3.5-5.1) mmol/L Chloride 98 (98-110) mmol/L Carbon Dioxide 36 H (21-31) mmol/L BUN 42 H (6.0-23.0) mg/dL Creatinine 1.4 (0.6-1.5) mg/dL Est Cr Clr Drug Dosing 37.82 mL/min Estimated GFR (MDRD) 38.6 ml/min Glucose 144 H (60-110) mg/dL Calcium 9.6 (8.8-10.8) mg/dL Total Bilirubin 0.4 (0.1-1.5) mg/dL AST 15 (5-40) IU/L ALT 28 (8-54) IU/L Alkaline Phosphatase 76 (40-150) Creatine Kinase 23 (9-236) IU/L CK-MB (CK-2) 1.2 (0-6.6) ng/ml Troponin I < 0.10 (0.0-0.29) NG/ML B-Natriuretic Peptide (<100) PG/ML Total Protein 6.1 (6.0-8.0) g/dL Albumin 3.3 L (3.5-5.0) g/dL Globulin 2.8 (2.0-3.5) g/dL Albumin/Globulin Ratio 1.2 L (1.3-2.8) 06/12/17 Range/Units 07:10 WBC (4.0-11.0) K/uL RBC (4.30-5.90) M/uL Hgb (12.0-16.0) g/dL Hct (36.0-46.0) % MCV (80.0-98.0) fL MCH (27.0-32.0) pg MCHC (31.0-37.0) g/dL RDW Std Deviation (28.0-62.0) fl RDW Coeff of Leia (11.0-15.0) % Plt Count (150-400) K/uL MPV (7.40-12.00) fL Neut % (Auto) (48.0-80.0) % Lymph % (Auto) (16.0-40.0) % [place] % (Auto) (0.0-15.0) % Eos % (Auto) (0.0-7.0) % Baso % (Auto) (0.0-1.5) % Neut # (Auto) (1.4-5.7) K/uL Lymph # (Auto) (0.6-2.4) K/uL [place] # (Auto) (0.0-0.8) K/uL Eos # (Auto) (0.0-0.7) K/uL Baso # (Auto) (0.0-0.1) K/uL Nucleated RBC % /100WBC Nucleated RBCs # K/uL INR (0.86-1.11) Sodium (136-146) mmol/L Potassium (3.5-5.1) mmol/L Chloride (98-110) mmol/L Carbon Dioxide (21-31) mmol/L BUN (6.0-23.0) mg/dL Creatinine (0.6-1.5) mg/dL Est Cr Clr Drug Dosing mL/min Estimated GFR (MDRD) ml/min Glucose (60-110) mg/dL Calcium (8.8-10.8) mg/dL Total Bilirubin (0.1-1.5) mg/dL AST (5-40) IU/L ALT (8-54) IU/L Alkaline Phosphatase (40-150) Creatine Kinase (9-236) IU/L CK-MB (CK-2) (0-6.6) ng/ml Troponin I (0.0-0.29) NG/ML B-Natriuretic Peptide 559 H (<100) PG/ML Total Protein (6.0-8.0) g/dL Albumin (3.5-5.0) g/dL Globulin (2.0-3.5) g/dL Albumin/Globulin Ratio (1.3-2.8) Meds: Medications Generic Name Dose Route Start Last Admin Trade Name Frelondon PRN Reason Stop Dose Admin Sodium Chloride 1,000 mls @ 30 mls/hr 06/12/17 06:00 Normal Saline IV STAT ADRIAN Discontinued Medications Generic Name Dose Route Start Last Admin Trade Name Aarti PRN Reason Stop Dose Admin Diltiazem HCl 20 mg 06/12/17 06:20 Diltiazem IVPUSH 06/12/17 06:21 ONETIME ONE Furosemide 40 mg 06/12/17 05:55 Lasix IVPUSH 06/12/17 05:56 NOW ONE Lidocaine HCl Confirm 06/12/17 06:46 06/12/17 07:55 Xylocaine-Mpf 1% Administered 06/12/17 06:47 Not Given Dose 4 mls @ as directed .ROUTE .STK-MED ONE Lidocaine HCl 20 ml 06/12/17 07:51 06/12/17 07:54 Xylocaine 1% INJECT 06/12/17 07:52 20 ml ONETIME ONE Administration Lidocaine HCl Confirm 06/12/17 07:53 Xylocaine 1% Administered 06/12/17 07:54 Dose 20 ml .ROUTE .STK-MED ONE Lidocaine/Epinephrine Confirm 06/12/17 07:52 Xylocaine 1% With Epinephrine 1:100,000 Administered 06/12/17 07:53 Dose 20 ml .ROUTE .STK-MED ONE Methylprednisolone Sodium Succinate 125 mg 06/12/17 05:55 Solu-Medrol IVPUSH 06/12/17 05:56 ONETIME ONE Departure - Departure Disposition: Admitted As Inpatient 64 Clinical Impression: Dyspnea, Hypoxemia, Atrial fibrillation with RVR, Leukocytosis - Discharge Information Referrals: PCP,None [Primary Care Provider] - Forms: ED Department Discharge <Charan Alves - Last Filed: 06/12/17 08:12> ED HPI GENERAL MEDICAL PROBLEM - History of Present Illness INITIAL COMMENTS - FREE TEXT/NARRATIVE: Procedure note: Central line placement Anesthesia was unable to get a peripheral access patient was consented for central line placement patient was prepped and draped in sterile manner central line was placed in her right femoral vein triple lumen placed without complication secured aspiration of blood through all 3 ports and saline flush successful sterile dressing per nursing. ED ROS GENERAL - Review of Systems Review Of Systems: ROS reveals no pertinent complaints other than HPI. ED EXAM, GENERAL - Physical Exam Exam: See Below (See dictation) Departure - Departure Time of Disposition: 08:11 Condition: Good
[2017-06-12] MEDS ORDERED: Diltiazem 25 MG/5 ML SDV IVPUSH ONE ×3 (06:20→19:51)
[2017-06-12] MEDS ORDERED: Lidocaine 1% 2 ML ONE (06:46)
--- NOTE | 2017-06-12 07:38 | PCM.SN ---
- Free Text/Narrative Note: asked to start iv line for difficult start. room 5 ER. Multiple attempts Right AC and Right wrist with 1% lidocaine SQ and #20,#22 gauges respectively. Unsuccessful x 3. Pt tolerated very well
[2017-06-12 07:41] LABS: CHLORIDE,CL 98 mmol/L (98-110); SODIUM,NA 147 mmol/L (136-146)
[2017-06-12] MEDS ORDERED: Lidocaine 1% 20 ML MDV INJECT ONE (07:51)
[2017-06-12] MEDS ORDERED: Lidocaine 1% with EPINEPHrine 1:100,000 20 ML MDV ONE (07:52)
[2017-06-12] MEDS ORDERED: Lidocaine 1% 20 ML MDV ONE (07:53)
[2017-06-12] MEDS ORDERED: Levofloxacin/Dextrose 5%-Water 750 MG in Premix Bag 1 BAG IV ONE (08:26)
[2017-06-12] MEDS ORDERED: methylPREDNISolone Sodium Succinate 125 MG/2 ML SDV ONE (08:33)
[2017-06-12] MEDS ORDERED: Furosemide 40 MG/4 ML VIAL ONE (08:33)
--- NOTE | 2017-06-12 11:10 | PCM.HP ---
H&P History of Present Illness - General Date of Service: 06/12/17 Admit Problem/Dx: Admission Diagnosis/Problem Admission Diagnosis/Problem Dyspnea Source of Information: Patient, Provider, RN - History of Present Illness Initial Comments - Free Text/Narative: She lives at [facility]. She states that she has been there since october 2016 as she is not longer able to walk due to generalized weakness. She awoke in the night with severe dyspnea. She is feeling better. - Related Data Allergies/Adverse Reactions: Allergies Allergy/AdvReac Type Severity Reaction Status Date / Time kaylah inhibitor Allergy Airway Uncoded 06/12/17 06:01 Tightness Home Medications: Home Meds Levothyroxine [Synthroid] 50 mcg PO ASDIRECTED 02/18/15 [History] Multivit-Min/FA/Lycopene/Lut [Complete Multi 50+] 1 tab PO DAILY 02/18/15 [ History] atorvaSTATin [Lipitor] 40 mg PO BEDTIME 02/18/15 [History] metFORMIN [Glucophage] 500 mg PO BID 02/18/15 [History] Albuterol Sulfate [Proair Hfa] 2 puff IH QID PRN 10/16/16 [History] Dulaglutide [Trulicity] 0.75 mg SQ ASDIRECTED 10/16/16 [History] Glimepiride [Amaryl] 2 mg PO WITHBREAKFAST 10/16/16 [History] Insulin Glarg,Human.Rec.Analog [LantUS Solostar] 22 units SUBCUT BEDTIME [History] Naproxen Sodium [Aleve] 220 mg PO BID PRN 10/16/16 [History] PARoxetine HCl [Paroxetine HCl] 40 mg PO DAILY 10/16/16 [History] cloNIDine 0.3 mg TD ASDIRECTED 10/16/16 [History] Albuterol/Ipratropium [DuoNeb 3.0-0.5 MG/3 ML] 3 ml NEB Q4HRRT PRN #10 neb 10/21 [Rx] Polyethylene Glycol 3350 [MiraLAX] 17 gm PO DAILY PRN #10 packet 10/21/16 [Rx] Ferrous Sulfate 325 mg PO DAILY 03/05/17 [History] fentaNYL [Duragesic] 25 mcg TRDERM Q72H 03/05/17 [History] Temazepam [Restoril] 15 mg PO BEDTIME 03/07/17 [History] Prednisone [IJD: Prednisone] 10 mg PO DAILY 04/02/17 [History] Ascorbic Acid 1,000 mg PO DAILY 04/20/17 [History] Aspirin 325 mg PO DAILY 04/20/17 [History] Furosemide [Lasix] 40 mg PO DAILY 04/20/17 [History] Rivaroxaban [Xarelto] 15 mg PO DAILY 04/20/17 [History] Levothyroxine 75 mcg PO MOWEFR 05/28/17 [History] Metoprolol Tartrate [Lopressor] 75 mg PO TID 05/28/17 [History] Albuterol/Ipratropium [DuoNeb 3.0-0.5 MG/3 ML] 3 ml NEB Q4H PRN 06/12/17 [ History] Fluticasone/Vilanterol [Breo Ellipta 100-25 MCG Inhalation Kit] 1 puff INH DAILY 06/12/17 [History] Insulin Aspart [NovoLOG] See Protocol SUBCUT ASDIRECTED 06/12/17 [History] Mirtazapine [Remeron] 45 mg PO BEDTIME 06/12/17 [History] Past Medical History HEENT History: Reports: None Cardiovascular History: Reports: Afib, CAD, High Cholesterol, Hypertension, NM Other Cardiovascular History: atherosclerotic heart dse without angina; Respiratory History: Reports: Asthma, COPD, Other (See Below) Other Respiratory History: Hypoxemia; chronic respiratory failure, unspecified wether hypoxia or hypercapnea Gastrointestinal History: Reports: Gastritis Other Gastrointestinal History: acquired absence of spleen; non-specific gastroenteritis and colitis Genitourinary History: Reports: Acute Renal Failure, Chronic Renal Insuffiency, UTI, Recurrent MANAGER BABY History: Reports: None Musculoskeletal History: Reports: Fracture, Osteoporosis, Other (See Below) Other Musculoskeletal History: Restless Leg Syndrome, Hemiplegia and hemiparesis post CVA, frequent falls; polymyalgia rheumatica; facial weakness following cerebral infarction Neurological History: Reports: CVA, Other (See Below) Other Neuro History: "3 strokes" Psychiatric History: Reports: Anxiety, Depression Endocrine/Metabolic History: Reports: Diabetes, Type II, Hypothyroidism, Osteoporosis Other Endocrine/Metabolic History: 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 Hematologic History: Reports: Anticoagulation Therapy Immunologic History: Reports: None Oncologic (Cancer) History: Reports: None Dermatologic History: Reports: Other (See Below) Other Dermatologic History: chronic open wound to right foot - Infectious Disease History Infectious Disease History: Reports: None - Past Surgical History Cardiovascular Surgical History: Reports: None Respiratory Surgical History: Reports: None Female Surgical History: Reports: None Endocrine Surgical History: Reports: None Neurological Surgical History: Reports: None Musculoskeletal Surgical History: Reports: None Social & Family History - Family History Family Medical History: Noncontributory - Tobacco Use Smoking Status *Q: Never Smoker Second Hand Smoke Exposure: No - Caffeine Use Caffeine Use: Reports: Coffee - Recreational Drug Use Recreational Drug Use: No Drug Use in Last 12 Months: No Recreational Drug Type: Reports: Marijuana/Hashish Other Recreational Drug Type: Patient reports "smoking pot" today Recreational Drug Use Frequency: Daily - Living Situation & Occupation Living situation: Reports: Extended Care Facility H&P Review of Systems - Review of Systems: Review Of Systems: See Below General: Denies: Fever, Chills HEENT: Denies: Sore Throat Pulmonary: Reports: Shortness of Breath. Denies: Cough, Sputum Cardiovascular: Reports: Edema (chronic edema; she wears LE wraps). Denies: Chest Pain Gastrointestinal: Denies: Abdominal Pain, Black Stool, Bloody Stool, Hematemesis Genitourinary: Denies: Dysuria, Hematuria Exam - Exam Exam: See Below - Vital Signs Vital Signs: Last Vital Signs Temp 96.5 F 06/12/17 10:00 Pulse 102 H 06/12/17 10:00 Resp 18 06/12/17 10:00 BP 144/84 H 06/12/17 10:00 Pulse Ox 96 06/12/17 10:00 Weight: 114.895 kg - Exam General: Alert, Oriented, Cooperative HEENT: EOMI Neck: Supple, Trachea Midline Lungs: Clear to Auscultation, Normal Respiratory Effort Cardiovascular: Regular Rate, Regular Rhythm. No: Systolic Murmur, Diastolic Murmur GI/Abdominal Exam: Soft, Non-Tender Neurological: Cranial Nerves Intact, Normal Speech Neuro Extensive - Motor, Sensory, Reflexes: No: Facial palsy (L), Facial Palsy ( R), Hemeplagia (R), Hemeplagia (L) - Patient Data Lab Results Last 24 hrs: Laboratory Results - last 24 hr 06/12/17 Range/Units 09:43 Urine Color YELLOW Urine Appearance CLEAR Urine pH 6.5 (5.0-8.0) Ur Specific Garibaldi 1.010 (1.001-1.035) Urine Protein NEGATIVE (NEGATIVE) mg/dL Urine Glucose (UA) NEGATIVE (NEGATIVE) mg/dL Urine Ketones NEGATIVE (NEGATIVE) mg/dL Urine Occult Blood TRACE-LYSED (NEGATIVE) Urine Nitrite NEGATIVE (NEGATIVE) Urine Bilirubin NEGATIVE (NEGATIVE) Urine Urobilinogen 0.2 (<2.0) EU/dL Ur Leukocyte Esterase MODERATE (NEGATIVE) Urine RBC 0-2 (0-2/HPF) Urine WBC 20-25 (0-5/HPF) Ur Epithelial Cells FEW (NONE-FEW) Urine Bacteria FEW (NEGATIVE) Result Diagrams: 06/12/17 07:10 06/12/17 07:10 *Q Meaningful Use (ADM) - VTE *Q VTE Criteria *Q: - Stroke *Q Stroke Criteria *Q: - AMI *Q AMI Criteria *Q: - Problem List (1) Dyspnea SNOMED Code(s): 828063561 ICD Code: R06.00 - DYSPNEA, UNSPECIFIED Status: Acute Current Visit: Yes (2) Hypoxemia SNOMED Code(s): 510392933 ICD Code: R09.02 - HYPOXEMIA Status: Acute Current Visit: Yes (3) Leukocytosis SNOMED Code(s): 779297604 ICD Code: D72.829 - ELEVATED WHITE BLOOD CELL COUNT, UNSPECIFIED Status: Acute Current Visit: Yes (4) UTI (urinary tract infection) SNOMED Code(s): 92546187 ICD Code: N39.0 - URINARY TRACT INFECTION, SITE NOT SPECIFIED Status: Acute Current Visit: No (5) Polymyalgia rheumatica syndrome SNOMED Code(s): 57773957 ICD Code: M35.3 - POLYMYALGIA RHEUMATICA Status: Acute Current Visit: No (6) Asplenia SNOMED Code(s): 426299329 ICD Code: Q89.01 - ASPLENIA (CONGENITAL) Status: Chronic Current Visit: No Problem Details: Splenectomy 2008 (7) DM type 2 (diabetes mellitus, type 2) SNOMED Code(s): 00425073 ICD Code: E11.9 - TYPE 2 DIABETES MELLITUS WITHOUT COMPLICATIONS Status: Chronic Priority: High Current Visit: No Qualifiers: Diabetes mellitus complication status: with neurologic complications Diabetes mellitus complication detail: with other neurological complication Diabetes mellitus custodial insulin use: with termite 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 use Qualified Code(s) : E11.49 - Type 2 diabetes mellitus with other diabetic neurological complication; Z79.4 - longterm (current) use of insulin (8) Hypokalemia SNOMED Code(s): 75469173 ICD Code: E87.6 - HYPOKALEMIA Status: Acute Current Visit: Yes Problem List Initiated/Reviewed/Updated: Yes Orders Last 24hrs: Active Orders 24 hr Category Date Time Status Bone Catheter Insertion [Insert Urinary Catheter] [OM. Care 06/12/17 08:45 Ordered PC] Q24H Urinary Catheter Assessment [RC] Q4H Care 06/12/17 08:34 Active CULTURE BLOOD [BC] Stat Lab 06/12/17 08:27 Received CULTURE BLOOD [BC] Stat Lab 06/12/17 08:40 Received Hydrocolloid Dressing [DuoDerm CGF] Med 06/12/17 11:15 Ordered 1 each TOP Q72H Mupirocin Cream [Bactroban Crm] Med 06/12/17 11:15 Ordered 1 gm TOP TID Medication Orders Sodium Chloride (Normal Saline) 1,000 mls @ 30 mls/hr IV STAT ADRIAN Last Admin: 06/12/17 08:40 Dose: 30 mls/hr Mupirocin (Bactroban Crm) 1 gm TOP TID ADRIAN Wound Care/Dressing Products (Duoderm Cgf) 1 each TOP Q72H ADRIAN Assessment/Plan Comment:: CXR is c/w chf but possibly also a right sided infiltrate by my review. especially in light of her asplenia, will cover with antibiotics. close monitoring see orders replace K
[2017-06-12] MEDS ORDERED: Potassium Chloride 20 MEQ Tab.ER PO ONE (11:12)
[2017-06-12] MEDS ORDERED: Ondansetron 4 MG/2 ML SDV IVPUSH PRN (11:13)
[2017-06-12] MEDS ORDERED: Sodium Chloride 0.9% 10 ML Syringe FLUSH PRN (11:13)
[2017-06-12] MEDS ORDERED: Sodium Chloride 0.9% 2.5 ML Syringe FLUSH PRN (11:13)
[2017-06-12] MEDS ORDERED: Bisacodyl 5 MG Tab PO PRN (11:13)
[2017-06-12] MEDS: Hydrocolloid Dressing 4x4 Bandage TOP SCH (11:41)
[2017-06-12] MEDS ORDERED: Polyethylene Glycol 3350 Powder 17 GM Packet PO PRN (11:49)
[2017-06-12] MEDS ORDERED: Albuterol/Ipratropium 3.0-0.5 MG/3 ML Neb Soln NEB PRN (11:49)
[2017-06-12] MEDS ORDERED: fentaNYL 25 MCG/HR Transdermal Patch TRDERM SCH (12:00)
[2017-06-12] MEDS ORDERED: Albuterol/Ipratropium 3.0-0.5 MG/3 ML Neb Soln NEB SCH (12:00)
[2017-06-12] MEDS ORDERED: Levothyroxine 50 MCG Tab PO SCH (12:00)
[2017-06-12] MEDS: Insulin Aspart 100 Units/ML 3 ML Pen SUBCUT SCH ×3 (12:34→21:28)
[2017-06-12] MEDS: predniSONE 10 MG Tab PO SCH (13:11)
[2017-06-12] MEDS: Furosemide 40 MG Tab PO SCH (13:11)
[2017-06-12] MEDS: Aspirin 325 MG Tab PO SCH (13:11)
[2017-06-12] MEDS: Ascorbic Acid 500 MG Tab PO SCH (13:11)
[2017-06-12] MEDS: Rivaroxaban 15 MG Tab PO SCH (13:11)
[2017-06-12] MEDS: PARoxetine 20 MG Tab PO SCH (13:11)
[2017-06-12] MEDS: Metoprolol Tartrate 50 MG Tab PO SCH ×2 (13:12→21:34)
[2017-06-12] MEDS: Mupirocin Crm 30 GM Tube TOP SCH ×3 (13:14→21:42)
[2017-06-12] MEDS: Albuterol/Ipratropium 3.0-0.5 MG/3 ML Neb Soln NEB SCH ×2 (13:36→21:11)
[2017-06-12] MEDS ORDERED: Metoprolol Tartrate 5 MG in Sodium Chloride 0.9% 50 ML IV ONE (14:18)
[2017-06-12] MEDS ORDERED: Metoprolol Tartrate 5 MG/5 ML SDV IVPUSH ONE (14:22)
[2017-06-12] MEDS: Metoprolol Tartrate 5 MG/5 ML SDV IVPUSH PRN ×3 (16:29→23:25)
[2017-06-12] MEDS: Diltiazem 180 MG Cap.CD PO SCH (19:33)
[2017-06-12] MEDS: Insulin Glargine,Human Rec. Analog 100 Units/ML 3 ML Pen SUBCUT SCH (21:31)
[2017-06-12] MEDS: Temazepam 15 MG Cap PO SCH (21:33)
[2017-06-12] MEDS: Mirtazapine 15 MG Tab PO SCH (21:34)
[2017-06-12] MEDS: atorvaSTATin 40 MG Tab PO SCH (21:35)
[2017-06-13] MEDS: Metoprolol Tartrate 5 MG/5 ML SDV IVPUSH PRN ×2 (02:26→16:36)
[2017-06-13] MEDS: Metoprolol Tartrate 50 MG Tab PO SCH ×3 (05:43→21:19)
[2017-06-13] MEDS: Mupirocin Crm 30 GM Tube TOP SCH ×3 (05:45→21:15)
[2017-06-13] MEDS: Insulin Aspart 100 Units/ML 3 ML Pen SUBCUT SCH ×4 (08:03→21:10)
[2017-06-13] MEDS: PARoxetine 20 MG Tab PO SCH (08:06)
[2017-06-13] MEDS: Glimepiride 2 MG Tab PO SCH (08:06)
[2017-06-13] MEDS: Furosemide 40 MG Tab PO SCH (08:06)
[2017-06-13] MEDS: Aspirin 325 MG Tab PO SCH (08:06)
[2017-06-13] MEDS: predniSONE 10 MG Tab PO SCH (08:06)
[2017-06-13] MEDS: Ascorbic Acid 500 MG Tab PO SCH (08:06)
[2017-06-13] MEDS: Ferrous Sulfate 325 MG Tab PO SCH (08:07)
[2017-06-13] MEDS: Multivitamins with Iron/Calcium/Folic Acid/Minerals Tab PO SCH (08:07)
[2017-06-13] MEDS: Diltiazem 180 MG Cap.CD PO SCH (08:07)
[2017-06-13] MEDS: Rivaroxaban 15 MG Tab PO SCH (08:07)
[2017-06-13] MEDS ORDERED: Levofloxacin/Dextrose 5%-Water 750 MG in Premix Bag 1 BAG IV SCH (09:00)
[2017-06-13] MEDS: Cefepime 2 GM in Premix Bag 1 BAG IV SCH ×2 (10:29→21:14)
[2017-06-13] MEDS: BREO ELLIPTA INH SCH (10:34)
[2017-06-13] MEDS: Albuterol/Ipratropium 3.0-0.5 MG/3 ML Neb Soln NEB SCH ×3 (10:36→21:24)
[2017-06-13] MEDS ORDERED: Levothyroxine 75 MCG Tab PO SCH (11:49)
--- NOTE | 2017-06-13 12:03 | PCM.PN ---
- General Info Date of Service: 06/13/17 Admission Dx/Problem (Free Text): Admission Diagnosis/Problem Admission Diagnosis/Problem Dyspnea Subjective Update: Feeling less SOB today. No chest pain, did complain of some palpitations earlier today. But she overall is feeling much better. Functional Status: Reports: Pain Controlled, Tolerating Diet - Review of Systems General: Reports: No Symptoms. Denies: Fever, Fatigue, Malaise HEENT: Reports: No Symptoms. Denies: Headaches Pulmonary: Denies: Shortness of Breath, Cough, Sputum Cardiovascular: Reports: Palpitations, Edema. Denies: Chest Pain, Orthopnea Gastrointestinal: Reports: Abdominal Pain. Denies: Nausea, Vomiting Genitourinary: Reports: No Symptoms. Denies: Dysuria, Frequency, Burning Musculoskeletal: Reports: No Symptoms Skin: Reports: Bruising (from multiple IV attempts and infiltration to L hand.) Neurological: Reports: No Symptoms Psychiatric: Reports: No Symptoms - Patient Data Vitals - Most Recent: Last Vital Signs Temp 96.8 F 06/13/17 08:00 Pulse 108 H 06/13/17 08:00 Resp 18 06/13/17 08:00 BP 123/88 06/13/17 08:00 Pulse Ox 95 06/13/17 08:00 Weight - Most Recent: 116.483 kg I&O - Last 24 Hours: Intake & Output 06/12/17 06/13/17 06/13/17 22:59 06:59 14:59 Intake Total 320 1157 150 Output Total 1225 900 Balance -905 257 150 Lab Results Last 24 Hours: Laboratory Results - last 24 hr 06/12/17 06/12/17 06/12/17 Range/Units 11:55 16:53 21:14 WBC (4.0-11.0) K/uL RBC (4.30-5.90) M/uL Hgb (12.0-16.0) g/dL Hct (36.0-46.0) % MCV (80.0-98.0) fL MCH (27.0-32.0) pg MCHC (31.0-37.0) g/dL RDW Std Deviation (28.0-62.0) fl RDW Coeff of Leia (11.0-15.0) % Plt Count (150-400) K/uL MPV (7.40-12.00) fL Neut % (Auto) (48.0-80.0) % Lymph % (Auto) (16.0-40.0) % Horry % (Auto) (0.0-15.0) % Eos % (Auto) (0.0-7.0) % Baso % (Auto) (0.0-1.5) % Neut # (Auto) (1.4-5.7) K/uL Lymph # (Auto) (0.6-2.4) K/uL Horry # (Auto) (0.0-0.8) K/uL Eos # (Auto) (0.0-0.7) K/uL Baso # (Auto) (0.0-0.1) K/uL Nucleated RBC % /100WBC Nucleated RBCs # K/uL Sodium (136-146) mmol/L Potassium (3.5-5.1) mmol/L Chloride (98-110) mmol/L Carbon Dioxide (21-31) mmol/L BUN (6.0-23.0) mg/dL Creatinine (0.6-1.5) mg/dL Est Cr Clr Drug Dosing mL/min Estimated GFR (MDRD) ml/min Glucose (60-110) mg/dL POC Glucose 151 H 344 H 307 H (60-110) mg/dL Calcium (8.8-10.8) mg/dL Magnesium (1.5-2.3) mEq/L Total Bilirubin (0.1-1.5) mg/dL AST (5-40) IU/L ALT (8-54) IU/L Alkaline Phosphatase (40-150) Total Protein (6.0-8.0) g/dL Albumin (3.5-5.0) g/dL Globulin (2.0-3.5) g/dL Albumin/Globulin Ratio (1.3-2.8) 06/13/17 06/13/17 06/13/17 Range/Units 05:45 05:45 06:33 WBC 15.28 H (4.0-11.0) K/uL RBC 3.59 L (4.30-5.90) M/uL Hgb 10.8 L (12.0-16.0) g/dL Hct 35.6 L (36.0-46.0) % MCV 99.2 H (80.0-98.0) fL MCH 30.1 (27.0-32.0) pg MCHC 30.3 L (31.0-37.0) g/dL RDW Std Deviation 61.7 (28.0-62.0) fl RDW Coeff of Leia 17 H (11.0-15.0) % Plt Count 391 (150-400) K/uL MPV 12.30 H (7.40-12.00) fL Neut % (Auto) 88.4 H (48.0-80.0) % Lymph % (Auto) 4.6 L (16.0-40.0) % Horry % (Auto) 6.9 (0.0-15.0) % Eos % (Auto) 0.0 (0.0-7.0) % Baso % (Auto) 0.1 (0.0-1.5) % Neut # (Auto) 13.5 H (1.4-5.7) K/uL Lymph # (Auto) 0.7 (0.6-2.4) K/uL Horry # (Auto) 1.1 H (0.0-0.8) K/uL Eos # (Auto) 0.0 (0.0-0.7) K/uL Baso # (Auto) 0.0 (0.0-0.1) K/uL Nucleated RBC % 0.6 /100WBC Nucleated RBCs # 0 K/uL Sodium 144 (136-146) mmol/L Potassium 3.8 (3.5-5.1) mmol/L Chloride 96 L (98-110) mmol/L Carbon Dioxide 36 H (21-31) mmol/L BUN 45 H (6.0-23.0) mg/dL Creatinine 1.6 H (0.6-1.5) mg/dL Est Cr Clr Drug Dosing 33.09 mL/min Estimated GFR (MDRD) 33.1 ml/min Glucose 395 H (60-110) mg/dL POC Glucose 316 H (60-110) mg/dL Calcium 9.4 (8.8-10.8) mg/dL Magnesium 1.3 L (1.5-2.3) mEq/L Total Bilirubin 0.4 (0.1-1.5) mg/dL AST 50 H (5-40) IU/L ALT 44 (8-54) IU/L Alkaline Phosphatase 83 (40-150) Total Protein 6.0 (6.0-8.0) g/dL Albumin 3.1 L (3.5-5.0) g/dL Globulin 2.9 (2.0-3.5) g/dL Albumin/Globulin Ratio 1.1 L (1.3-2.8) 06/13/17 Range/Units 11:36 WBC (4.0-11.0) K/uL RBC (4.30-5.90) M/uL Hgb (12.0-16.0) g/dL Hct (36.0-46.0) % MCV (80.0-98.0) fL MCH (27.0-32.0) pg MCHC (31.0-37.0) g/dL RDW Std Deviation (28.0-62.0) fl RDW Coeff of Leia (11.0-15.0) % Plt Count (150-400) K/uL MPV (7.40-12.00) fL Neut % (Auto) (48.0-80.0) % Lymph % (Auto) (16.0-40.0) % Horry % (Auto) (0.0-15.0) % Eos % (Auto) (0.0-7.0) % Baso % (Auto) (0.0-1.5) % Neut # (Auto) (1.4-5.7) K/uL Lymph # (Auto) (0.6-2.4) K/uL Horry # (Auto) (0.0-0.8) K/uL Eos # (Auto) (0.0-0.7) K/uL Baso # (Auto) (0.0-0.1) K/uL Nucleated RBC % /100WBC Nucleated RBCs # K/uL Sodium (136-146) mmol/L Potassium (3.5-5.1) mmol/L Chloride (98-110) mmol/L Carbon Dioxide (21-31) mmol/L BUN (6.0-23.0) mg/dL Creatinine (0.6-1.5) mg/dL Est Cr Clr Drug Dosing mL/min Estimated GFR (MDRD) ml/min Glucose (60-110) mg/dL POC Glucose 368 H (60-110) mg/dL Calcium (8.8-10.8) mg/dL Magnesium (1.5-2.3) mEq/L Total Bilirubin (0.1-1.5) mg/dL AST (5-40) IU/L ALT (8-54) IU/L Alkaline Phosphatase (40-150) Total Protein (6.0-8.0) g/dL Albumin (3.5-5.0) g/dL Globulin (2.0-3.5) g/dL Albumin/Globulin Ratio (1.3-2.8) Yuriy Results Last 24 Hours: Microbiology 06/12/17 08:40 Aerobic Blood Culture - Preliminary Blood - Venous NO GROWTH AFTER 1 DAY Anaerobic Blood Culture - Preliminary NO GROWTH AFTER 1 DAY 06/12/17 08:27 Aerobic Blood Culture - Preliminary Blood - Venous NO GROWTH AFTER 1 DAY Anaerobic Blood Culture - Preliminary NO GROWTH AFTER 1 DAY Med Orders - Current: Current Medications Acetaminophen (Tylenol) 650 mg PO Q4H PRN PRN Reason: Pain (Mild 1-3)/fever Albuterol/Ipratropium (Duoneb 3.0-0.5 Mg/3 Ml) 3 ml NEB Q4HRRT PRN PRN Reason: SOB/wheezing Albuterol/Ipratropium (Duoneb 3.0-0.5 Mg/3 Ml) 3 ml NEB TID@1000,1400,2200 [facility] Last Admin: 06/13/17 10:36 Dose: 3 ml Ascorbic Acid (Vitamin C) 1,000 mg PO DAILY [facility] Last Admin: 06/13/17 08:06 Dose: 1,000 mg Aspirin (Aspirin) 325 mg PO DAILY [facility] Last Admin: 06/13/17 08:06 Dose: 325 mg Atorvastatin Calcium (Lipitor) 40 mg PO BEDTIME [facility] Last Admin: 06/12/17 21:35 Dose: 40 mg Bisacodyl (Dulcolax) 5 mg PO DAILY PRN PRN Reason: Constipation Clonidine HCl (Catapres-Tts 3) 0.3 mg TRDERM Q7D [facility] Diltiazem HCl (Cardizem Cd) 180 mg PO DAILY [facility] Last Admin: 06/13/17 08:07 Dose: 180 mg Fentanyl (Duragesic) 25 mcg TRDERM Q72H [facility] Ferrous Sulfate (Ferrous Sulfate) 325 mg PO DAILY [facility] Last Admin: 06/13/17 08:07 Dose: 325 mg Furosemide (Lasix) 40 mg PO DAILY [facility] Last Admin: 06/13/17 08:06 Dose: 40 mg Glimepiride (Amaryl) 2 mg PO WITHBREAKFAST [facility] Last Admin: 06/13/17 08:06 Dose: 2 mg Vancomycin HCl 1,750 mg/ (Sodium Chloride) 500 mls @ 250 mls/hr IV Q24H [facility] Last Admin: 06/12/17 13:14 Dose: 250 mls/hr Cefepime HCl 2 gm/ Premix 50 mls @ 100 mls/hr IV Q12H [facility] Last Admin: 06/13/17 10:29 Dose: 100 mls/hr Levofloxacin/Dextrose 750 mg/ (Premix) 150 mls @ 100 mls/hr IV Q48H [facility] Insulin Aspart (Novolog) 0 unit SUBCUT ACBED [facility] PRN Reason: Protocol Last Admin: 06/13/17 08:03 Dose: 8 units Insulin Glargine (Lantus Solostar) 22 units SUBCUT BEDTIME [facility] Last Admin: 06/12/17 21:31 Dose: 22 units Levothyroxine Sodium (Synthroid) 50 mcg PO SuTuThSa@0730 [facility] Levothyroxine Sodium (Levothyroxine) 75 mcg PO MoWeFr@0730 [facility] Metoprolol Tartrate (Lopressor) 75 mg PO TID [facility] Last Admin: 06/13/17 05:43 Dose: 75 mg Metoprolol Tartrate (Lopressor) 5 mg IVPUSH Q2H PRN PRN Reason: Tachycardia Last Admin: 06/13/17 02:26 Dose: 5 mg Mirtazapine (Remeron) 45 mg PO BEDTIME [facility] Last Admin: 06/12/17 21:34 Dose: 45 mg Multivitamins/Minerals (Thera M Plus) 1 tab PO DAILY [facility] Last Admin: 06/13/17 08:07 Dose: 1 tab Mupirocin (Bactroban Crm) 1 gm TOP TID [facility] Last Admin: 06/13/17 05:45 Dose: 1 applic Ondansetron HCl (Zofran) 4 mg IVPUSH Q4H PRN PRN Reason: Nausea Paroxetine HCl (Paxil) 40 mg PO DAILY [facility] Last Admin: 06/13/17 08:06 Dose: 40 mg Dulaglutide [ (Trulicity]) 0 each SUBCUT Q7D [facility] Breo Ellipta ( Fluticasone/Vilanterol) 1 each INH DAILY [facility] Last Admin: 06/13/17 10:34 Dose: Not Given Polyethylene Glycol (Miralax) 17 gm PO DAILY PRN PRN Reason: Constipation Last Admin: 06/12/17 18:20 Dose: 17 gm Prednisone (Prednisone) 10 mg PO DAILY [facility] Last Admin: 06/13/17 08:06 Dose: 10 mg Rivaroxaban (Xarelto) 15 mg PO DAILY [facility] Last Admin: 06/13/17 08:07 Dose: 15 mg Sodium Chloride (Saline Flush) 10 ml FLUSH ASDIRECTED PRN PRN Reason: Keep Vein Open Sodium Chloride (Saline Flush) 2.5 ml FLUSH ASDIRECTED PRN PRN Reason: Keep Vein Open Temazepam (Restoril) 15 mg PO BEDTIME [facility] Last Admin: 06/12/17 21:33 Dose: 15 mg Vancomycin HCl (Pharmacy To Dose - Vancomycin) 1 dose .XX ASDIRECTED [facility] Wound Care/Dressing Products (Duoderm Cgf) 1 each TOP Q72H [facility] Last Admin: 06/12/17 11:41 Dose: 1 each Discontinued Medications Albuterol/Ipratropium (Duoneb 3.0-0.5 Mg/3 Ml) 3 ml NEB Q4H [facility] Last Admin: 06/12/17 15:46 Dose: Not Given Clonidine HCl (Catapres-Tts 1) 0.3 mg TRDERM ASDIRECTED [facility] Diltiazem HCl (Diltiazem) 20 mg IVPUSH ONETIME ONE Stop: 06/12/17 06:21 Last Admin: 06/12/17 08:15 Dose: 20 mg Diltiazem HCl (Diltiazem) 10 mg IVPUSH ONETIME ONE Stop: 06/12/17 19:05 Last Admin: 06/12/17 19:21 Dose: 15 mg Diltiazem HCl (Diltiazem) 10 mg IVPUSH ONETIME ONE Stop: 06/12/17 19:52 Last Admin: 06/12/17 20:19 Dose: 10 mg Fentanyl (Duragesic) 25 mcg TRDERM Q72H [facility] Last Admin: 06/12/17 15:46 Dose: Not Given Furosemide (Lasix) 40 mg IVPUSH NOW ONE Stop: 06/12/17 05:56 Last Admin: 06/12/17 08:47 Dose: 40 mg Furosemide (Lasix) Confirm Administered Dose 40 mg .ROUTE .STK-MED ONE Stop: 06/12/17 08:34 Last Admin: 06/12/17 08:44 Dose: Not Given Glimepiride (Glimepiride) 2 mg PO WITHBREAKFAST [facility] Last Admin: 06/12/17 15:47 Dose: Not Given Sodium Chloride (Normal Saline) 1,000 mls @ 30 mls/hr IV STAT [facility] Last Admin: 06/12/17 08:40 Dose: 30 mls/hr Lidocaine HCl (Xylocaine-Mpf 1%) Confirm Administered Dose 4 mls @ as directed .ROUTE .STK-MED ONE Stop: 06/12/17 06:47 Last Admin: 06/12/17 07:55 Dose: Not Given Levofloxacin/Dextrose 750 mg/ (Premix) 150 mls @ 100 mls/hr IV ONETIME ONE Stop: 06/12/17 09:55 Last Admin: 06/12/17 08:50 Dose: 100 mls/hr Levofloxacin/Dextrose 750 mg/ (Premix) 150 mls @ 100 mls/hr IV Q24H [facility] Last Admin: 06/13/17 08:07 Dose: 100 mls/hr Levothyroxine Sodium (Levothyroxine) 75 mcg PO MoWeFr@0730 [facility] Levothyroxine Sodium (Synthroid) 50 mcg PO ASDIRECTED [facility] Lidocaine HCl (Xylocaine 1%) 20 ml INJECT ONETIME ONE Stop: 06/12/17 07:52 Last Admin: 06/12/17 07:54 Dose: 20 ml Lidocaine HCl (Xylocaine 1%) Confirm Administered Dose 20 ml .ROUTE .STK-MED ONE Stop: 06/12/17 07:54 Last Admin: 06/12/17 08:24 Dose: Not Given Lidocaine/Epinephrine (Xylocaine 1% With Epinephrine 1:100,000) Confirm Administered Dose 20 ml .ROUTE .STK-MED ONE Stop: 06/12/17 07:53 Last Admin: 06/12/17 08:23 Dose: Not Given Methylprednisolone Sodium Succinate (Solu-Medrol) 125 mg IVPUSH ONETIME ONE Stop: 06/12/17 05:56 Last Admin: 06/12/17 08:44 Dose: 125 mg Methylprednisolone Sodium Succinate (Solu-Medrol) Confirm Administered Dose 125 mg .ROUTE .STK-MED ONE Stop: 06/12/17 08:34 Last Admin: 06/12/17 08:44 Dose: Not Given Metoprolol Tartrate (Lopressor) 5 mg IVPUSH ONETIME ONE Stop: 06/12/17 14:23 Last Admin: 06/12/17 14:35 Dose: 5 mg Potassium Chloride (Klor-Con M20) 40 meq PO ONETIME ONE Stop: 06/12/17 11:13 Last Admin: 06/12/17 11:41 Dose: 40 meq - Exam Quality Assessment: Central Line/PICC (R femoral Central line in place, no erythema to site, scant old bloody noted. Will plan on removing this once PICC line in place. ), Urine Catheter, DVT Prophylaxis (Xarelto) General: Alert, Oriented, Cooperative, No Acute Distress HEENT: Pupils Equal, Pupils Reactive Neck: Supple Lungs: Decreased Breath Sounds. No: Normal Respiratory Effort (Some labored breathing noted.) Cardiovascular: No Murmurs, Irregular Rhythm, Tachycardia GI/Abdominal Exam: Normal Bowel Sounds, Soft, Non-Tender, No Organomegaly, No Distention, No Abnormal Bruit, No Mass, Pelvis Stable, Other (obese abdomen) Extremities: Normal Inspection, Normal Range of Motion, Non-Tender, Normal Capillary Refill, Other (anasarca noted, with +2 pitting edema to BLE extending to bilateral hips at +3 pitting edema and pannis and upper extremities revealing +1-2 edema. L hand edematous from IV infiltration, and oozing serous fluid from insertion site.) Wound/Incisions: Other (chronic skin changes noted to L lower extremity does, not appear to be acute cellulitis, Will monitor. ) Neurological: No New Focal Deficit Psy/Mental Status: Alert, Normal Affect, Normal Mood - Problem List & Annotations (1) Anasarca SNOMED Code(s): 575808871 Code(s): R60.1 - GENERALIZED EDEMA Status: Chronic Priority: High Current Visit: No (2) Atrial fibrillation with rapid ventricular response SNOMED Code(s): 767215263546159 Code(s): I48.91 - UNSPECIFIED ATRIAL FIBRILLATION Status: Acute Current Visit: Yes (3) Dyspnea SNOMED Code(s): 836346587 Code(s): R06.00 - DYSPNEA, UNSPECIFIED Status: Acute Current Visit: Yes Qualifiers: Dyspnea type: shortness of breath Qualified Code(s): R06.02 - Shortness of breath; R06.00 - Dyspnea, unspecified; R06.01 - Orthopnea (4) Hypoxemia SNOMED Code(s): 960456331 Code(s): R09.02 - HYPOXEMIA Status: Acute Current Visit: Yes (5) HTN (hypertension) SNOMED Code(s): 93191321 Code(s): I10 - ESSENTIAL (PRIMARY) HYPERTENSION Status: Acute Current Visit: No Qualifiers: Hypertension type: essential hypertension Qualified Code(s): I10 - Essential (primary) hypertension (6) Polymyalgia rheumatica syndrome SNOMED Code(s): 55674488 Code(s): M35.3 - POLYMYALGIA RHEUMATICA Status: Chronic Current Visit: No (7) Renal insufficiency SNOMED Code(s): 952633985 Code(s): N28.9 - DISORDER OF KIDNEY AND URETER, UNSPECIFIED Status: Chronic Current Visit: No (8) Asplenia SNOMED Code(s): 707671669 Code(s): Q89.01 - ASPLENIA (CONGENITAL) Status: Chronic Current Visit: No Annotation/Comment:: Splenectomy 2008 (9) DM type 2 (diabetes mellitus, type 2) SNOMED Code(s): 37642114 Code(s): E11.9 - TYPE 2 DIABETES MELLITUS WITHOUT COMPLICATIONS Status: Chronic Priority: High Current Visit: No Qualifiers: Diabetes mellitus complication status: with neurologic complications Diabetes mellitus complication detail: with other neurological complication Diabetes mellitus termite 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 insulin use: with termite 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 use Qualified Code(s) : E11.49 - Type 2 diabetes mellitus with other diabetic neurological complication; Z79.4 - terminal operator (current) use of insulin (10) History of CVA (cerebrovascular accident) SNOMED Code(s): 751438207 Code(s): Z86.73 - PRSNL HX OF TIA (TIA), AND CEREB INFRC W/O RESID DEFICITS Status: Chronic Current Visit: No (11) Hypothyroidism SNOMED Code(s): 56666419 Code(s): E03.9 - HYPOTHYROIDISM, UNSPECIFIED Status: Chronic Current Visit: No Qualifiers: Hypothyroidism type: unspecified Qualified Code(s): E03.9 - Hypothyroidism , unspecified (12) Morbid obesity SNOMED Code(s): 824003666 Code(s): E66.01 - MORBID (SEVERE) OBESITY DUE TO EXCESS CALORIES Status: Chronic Priority: High Current Visit: No (13) Wheelchair bound SNOMED Code(s): 358564404 Code(s): Z99.3 - DEPENDENCE ON WHEELCHAIR Status: Chronic Current Visit: Yes (14) CHF (congestive heart failure) SNOMED Code(s): 28217024 Code(s): I50.9 - HEART FAILURE, UNSPECIFIED Status: Acute Current Visit: Yes Qualifiers: Congestive heart failure type: systolic - Problem List Review Problem List Initiated/Reviewed/Updated: Yes - My Orders Last 24 Hours: My Active Orders 06/13/17 08:50 Consult to Physician [CONS] Routine 06/13/17 08:51 Notify Provider Consults [RC] ASDIRECTED 06/13/17 09:15 Cefepime [Maxipime in D5W 2 GM/50 ML] 2 gm Premix Bag 1 bag IV Q12H 06/13/17 12:01 PICC Line Insertion [CR] Routine - Plan Plan:: This 56 year old female admitted for health care associated pneumonia, covering for possible gram negative infection, dyspnea, and hypoxemia 1. Health care associated pneumonia: Covering with broad spectrum antibiotics for possible gram negative infection, due to living in SNF and having recent admission to the hospital. Dyspnea is improved today. Leukocytosis remains, 15, 00, which may be near baseline due to chronic Prednisone use. Femoral central line started in ED, will plan for PICC line placement today or tomorrow and remove central line. High infection risk due to location and obesity. 2. A fb RVR: HR 100-110s, Continue on Metoprolol 75 TID, Diltiazem 180 mg started daily yesterday, will consult Dr. Barreto. She was recently seen by him in clinic for Cardiology follow up. Continue Xarelto for chronic anticoagulation. 3. CHF: Last Echo 05/04/2017 revealed EF 45-50% with mild LVH. Moderate anasarca noted. Home dosing of Lasix continued, this was recently decreased from 40 mg BID to daily for concerns of elevated BUN and dehydration. Will discuss with Dr. Clark. May consider diuresis due to anasarca. Daily weights, strict I/O and 2 L FR added to diet, low sodium 4. CKD: stable. Near baseline for BUN and Cr. Dr. Barreto set up consult for Business Employment Specialist as outpatient. 5. HTN: stable. Continue Clonidine patch. 6. COPD: Continue Breo, Duonebs and Proair. Oxygen dependent at 4 L NC continuously. 7. DM type 2: BS in 300s. Continue Amaryl, Lantus, and add Novolog SSI. Hold Metformin for now. Monitor. 8. CAD: Stable, Continue Lipitor. 9. Hc polymyalgia rheumatica: Prednisone 10 mg daily. VTE prophylaxis: Xarelto Dispo: 2-3 days pending improvement
[2017-06-13] MEDS ORDERED: Magnesium Sulfate/Water 2 GM in Premix Bag 1 BAG IV ONE (13:01)
[2017-06-13] MEDS ORDERED: Furosemide 40 MG/4 ML VIAL IVPUSH ONE (14:24)
[2017-06-13] MEDS ORDERED: Diltiazem 120 MG Cap.CD PO SCH (14:30)
--- NOTE | 2017-06-13 14:56 | CR ---
EXAM DATE: 06/12/17 PATIENT'S AGE: 56 Patient: COCO REILLY Facility: [place], [place] Site . Site : 1960 Study: XRay Chest [id number]/29/2017 7:41:53 AM Ordering Physician: Doctor Linn Final Report: HISTORY: Hypoxia. TECHNIQUE: One view of the chest. COMPARISON: 05/28/2017. FINDINGS: The examination is mildly limited by body habitus. Low lung volumes. No focal infiltrate. No pneumothorax. No moderate or large pleural effusion. Cardiac size is stable. IMPRESSION: Low lung volumes. No focal infiltrate. Dictated by Karl Penn MD @ 06/12/2017 7:47:40 AM Dictated by: Karl Penn MD @ 06/12/2017 07:47:44 (Electronic Signature) Report Signed by Proxy. [facility]
--- NOTE | 2017-06-13 15:44 | CONS ---
DATE OF CONSULTATION: DATE OF : 1960 PRIMARY CARE PHYSICIAN: None PCP REASON FOR CONSULTATION: Atrial fibrillation. HISTORY: This is a 56-year-old female with history of old CVA; history of CAD, status post PCI; diabetes; hypertension; history of asplenia; chronic persistent atrial fibrillation and possibly permanent atrial fibrillation; who has been in the [facility] since having a pelvic fracture. I saw her in the clinic for heart failure management recently. We saw her and we did a blood work showing that she had hypernatremia plus worsening DION, possibly from dehydration due to increasing the Lasix from 40 once a day to 40 twice a day. Since then, we also saw her another time after gentle hydration and decreasing her Lasix to 40 once a day. Her creatinine and BUN seemed to be better, and her sodium was also better. However, at this time, she is admitted to the hospital because of increasing shortness of breath on Tuesday and Tuesday. She has some coughing, but no production. No fever. No chest pain. Initially, she felt her heart racing. Her heart rate when she arrived was 116 and currently it stays around 90 to 110. She is on metoprolol 75 mg t.i.d. She used to be on the digoxin before, but she was admitted in April due to digoxin toxicity with a worsening creatinine. She is also on Xarelto 15 mg once a day as well. Now, she is being treated for pneumonia as well. PAST MEDICAL HISTORY: Including CAD, status post PCI; history of stroke; diabetes; hypertension; and history of asplenia; recurrent persistent atrial fibrillation; possibly atrial fibrillation. Echocardiogram showed possibly declined LV systolic dysfunction, 45% to 50%. ALLERGIES: She is allergic to AVIS inhibitor. CURRENT MEDICATIONS: In the hospital includes Lipitor 40 mg once a day, aspirin 325 mg once a day, diltiazem 180 mg once a day started for heart rate control yesterday, as well as insulin, glimepiride, metoprolol 75 mg t.i.d., and Lasix 40 mg p.o. once a day. She also got Lasix 40 IV x1 yesterday as well. SOCIAL HISTORY: She denies smoking, drug use, or alcohol consumption. FAMILY HISTORY: Noncontributory. REVIEW OF SYSTEMS: Positive for shortness of breath, coughing, otherwise has been negative for 12- point review of systems. PHYSICAL EXAMINATION: VITAL SIGNS: Initial blood pressure 142/91 and currently blood pressure is 106/70, heart rate initially 116 and currently is 90 to 110, temperature 36, respirations 18, and O2 saturation 95% on 4 L. HEENT: Not pale. NECK: JVD slightly positive. No jaundice. HEART: Normal S1 and S2, totally irregular. No murmur, tachycardia. LUNGS: Decreased breath sounds bilaterally with some crackles. No wheezing. ABDOMEN: Soft and nontender. Bowel sounds present. No hepatosplenomegaly. LEGS: Edema 1 to 2+ bilaterally. LABORATORY INVESTIGATION: Shows WBC 15, hematocrit 35, hemoglobin 10, and platelets 391. Sodium 144, potassium 3.8, chloride 96, bicarb 36, BUN 45, creatinine 1.6, her baseline. BNP 500. Troponin was negative. IMAGING: EKG showed atrial fibrillation with ST-T abnormality in V4 to V6. Seemed to be present from the previous EKG. ASSESSMENT AND PLAN: This is a 56-year-old female with history of heart failure; chronic persistent atrial fibrillation; history of stroke, on Xarelto; chronic kidney disease, baseline creatinine of 1.6; coronary artery disease, status post PCI; hypertension; diabetes; who presented to the hospital. She had sudden shortness of breath and is being treated for pneumonia. The chest x-ray looks likely vascular congestion, so I will give her Lasix 1 dose and will reassess tomorrow. I will allow her to have p.o. intake of fluid up to 2 L and continue antibiotics per primary care. Diltiazem was added 180 mg once a day for heart rate control, which I agree, and continue metoprolol 75 mg t.i.d. I will follow the patient as well for tomorrow. WALDEMAR / COURTNEY /[id number]
--- NOTE | 2017-06-13 16:45 | CR ---
EXAMINATION: Fluoro and ultrasound guided right-sided PICC line placement. HISTORY: IV access. TECHNIQUE/FINDINGS: After written informed consent was obtained from the patient using ultrasound an d Fluoro guidance under aseptic conditions utilizing 1% lidocaine as local anesthesia right basilic v ein was accessed and 5 [place] PICC catheter was deployed with its tip in the distal superior vena cav a. The catheter flushes and withdraws blood well. The catheter is flushed with the diluted heparin. The catheter secured well. IMPRESSION: Successful Fluoro and ultrasound guided PICC line placement.
[2017-06-13] MEDS: Insulin Glargine,Human Rec. Analog 100 Units/ML 3 ML Pen SUBCUT SCH (21:12)
[2017-06-13] MEDS: Temazepam 15 MG Cap PO SCH (21:13)
[2017-06-13] MEDS: Mirtazapine 15 MG Tab PO SCH (21:14)
[2017-06-13] MEDS: atorvaSTATin 40 MG Tab PO SCH (21:14)
[2017-06-14] MEDS: Levothyroxine 50 MCG Tab PO SCH (06:41)
[2017-06-14] MEDS: Metoprolol Tartrate 50 MG Tab PO SCH ×3 (06:41→21:14)
[2017-06-14] MEDS: Insulin Aspart 100 Units/ML 3 ML Pen SUBCUT SCH ×4 (06:42→21:19)
[2017-06-14] MEDS: Mupirocin Crm 30 GM Tube TOP SCH ×3 (06:42→21:21)
[2017-06-14] MEDS ORDERED: Furosemide 40 MG/4 ML VIAL IVPUSH ONE (08:06)
[2017-06-14] MEDS ORDERED: Magnesium Sulfate/Water 2 GM in Premix Bag 1 BAG IV ONE (08:13)
[2017-06-14] MEDS ORDERED: Potassium Chloride 20 MEQ Tab.ER PO ONE (08:13)
[2017-06-14] MEDS: Glimepiride 2 MG Tab PO SCH (08:36)
[2017-06-14] MEDS: Aspirin 325 MG Tab PO SCH (09:09)
[2017-06-14] MEDS: predniSONE 10 MG Tab PO SCH (09:09)
[2017-06-14] MEDS: Rivaroxaban 15 MG Tab PO SCH (09:09)
[2017-06-14] MEDS: PARoxetine 20 MG Tab PO SCH (09:10)
[2017-06-14] MEDS: Ferrous Sulfate 325 MG Tab PO SCH (09:11)
[2017-06-14] MEDS: Multivitamins with Iron/Calcium/Folic Acid/Minerals Tab PO SCH (09:11)
[2017-06-14] MEDS: Diltiazem 180 MG Cap.CD PO SCH (09:11)
--- NOTE | 2017-06-14 09:15 | PCM.PN ---
- General Info Date of Service: 06/14/17 Admission Dx/Problem (Free Text): Admission Diagnosis/Problem Admission Diagnosis/Problem Dyspnea Subjective Update: Sitting up in chair finishing breakfast, tired today. Reports dyspnea continues to improve, but wants to get rid of the edema. She reports edema is slightly better. No chest pain, palpitations. Remains on 4 L NC. no abdominal pain or constipation or diarrhea. Functional Status: Reports: Pain Controlled, Tolerating Diet - Review of Systems General: Reports: No Symptoms. Denies: Fever Pulmonary: Reports: No Symptoms. Denies: Shortness of Breath Cardiovascular: Reports: Edema. Denies: Chest Pain, Palpitations, Lightheadedness Gastrointestinal: Reports: No Symptoms. Denies: Abdominal Pain, Constipation, Diarrhea, Nausea, Vomiting Musculoskeletal: Reports: No Symptoms. Denies: Neck Pain Psychiatric: Reports: No Symptoms - Patient Data Vitals - Most Recent: Last Vital Signs Temp 96.2 F 06/14/17 07:32 Pulse 99 06/14/17 07:32 Resp 20 06/14/17 07:32 BP 136/77 06/14/17 07:32 Pulse Ox 92 L 06/14/17 07:32 Weight - Most Recent: 117.48 kg I&O - Last 24 Hours: Intake & Output 06/13/17 06/14/17 06/14/17 22:59 06:59 14:59 Intake Total 840 200 Output Total 900 1100 Balance -60 -900 Lab Results Last 24 Hours: Laboratory Results - last 24 hr 06/13/17 06/13/17 06/13/17 Range/Units 11:36 17:10 21:09 WBC (4.0-11.0) K/uL RBC (4.30-5.90) M/uL Hgb (12.0-16.0) g/dL Hct (36.0-46.0) % MCV (80.0-98.0) fL MCH (27.0-32.0) pg MCHC (31.0-37.0) g/dL RDW Std Deviation (28.0-62.0) fl RDW Coeff of Leia (11.0-15.0) % Plt Count (150-400) K/uL MPV (7.40-12.00) fL Neut % (Auto) (48.0-80.0) % Lymph % (Auto) (16.0-40.0) % [place] % (Auto) (0.0-15.0) % Eos % (Auto) (0.0-7.0) % Baso % (Auto) (0.0-1.5) % Neut # (Auto) (1.4-5.7) K/uL Lymph # (Auto) (0.6-2.4) K/uL [place] # (Auto) (0.0-0.8) K/uL Eos # (Auto) (0.0-0.7) K/uL Baso # (Auto) (0.0-0.1) K/uL Nucleated RBC % /100WBC Nucleated RBCs # K/uL Sodium (136-146) mmol/L Potassium (3.5-5.1) mmol/L Chloride (98-110) mmol/L Carbon Dioxide (21-31) mmol/L BUN (6.0-23.0) mg/dL Creatinine (0.6-1.5) mg/dL Est Cr Clr Drug Dosing mL/min Estimated GFR (MDRD) ml/min Glucose (60-110) mg/dL POC Glucose 368 H 373 H 383 H (60-110) mg/dL Calcium (8.8-10.8) mg/dL Magnesium (1.5-2.3) mEq/L Total Bilirubin (0.1-1.5) mg/dL AST (5-40) IU/L ALT (8-54) IU/L Alkaline Phosphatase (40-150) Total Protein (6.0-8.0) g/dL Albumin (3.5-5.0) g/dL Globulin (2.0-3.5) g/dL Albumin/Globulin Ratio (1.3-2.8) 06/14/17 06/14/17 06/14/17 Range/Units 04:56 04:56 06:05 WBC 15.30 H (4.0-11.0) K/uL RBC 3.47 L (4.30-5.90) M/uL Hgb 10.4 L (12.0-16.0) g/dL Hct 34.4 L (36.0-46.0) % MCV 99.1 H (80.0-98.0) fL MCH 30.0 (27.0-32.0) pg MCHC 30.2 L (31.0-37.0) g/dL RDW Std Deviation 62.2 H (28.0-62.0) fl RDW Coeff of Leia 17 H (11.0-15.0) % Plt Count 332 (150-400) K/uL MPV 12.00 (7.40-12.00) fL Neut % (Auto) 77.7 (48.0-80.0) % Lymph % (Auto) 12.8 L (16.0-40.0) % [place] % (Auto) 7.3 (0.0-15.0) % Eos % (Auto) 1.9 (0.0-7.0) % Baso % (Auto) 0.3 (0.0-1.5) % Neut # (Auto) 11.9 H (1.4-5.7) K/uL Lymph # (Auto) 2.0 (0.6-2.4) K/uL [place] # (Auto) 1.1 H (0.0-0.8) K/uL Eos # (Auto) 0.3 (0.0-0.7) K/uL Baso # (Auto) 0.0 (0.0-0.1) K/uL Nucleated RBC % 0.8 /100WBC Nucleated RBCs # 0 K/uL Sodium 142 (136-146) mmol/L Potassium 3.8 (3.5-5.1) mmol/L Chloride 97 L (98-110) mmol/L Carbon Dioxide 33 H (21-31) mmol/L BUN 44 H (6.0-23.0) mg/dL Creatinine 1.5 (0.6-1.5) mg/dL Est Cr Clr Drug Dosing 35.56 mL/min Estimated GFR (MDRD) 35.7 ml/min Glucose 266 H (60-110) mg/dL POC Glucose 225 H (60-110) mg/dL Calcium 8.8 (8.8-10.8) mg/dL Magnesium 1.7 (1.5-2.3) mEq/L Total Bilirubin 0.3 (0.1-1.5) mg/dL AST 20 (5-40) IU/L ALT 42 (8-54) IU/L Alkaline Phosphatase 71 (40-150) Total Protein 5.5 L (6.0-8.0) g/dL Albumin 3.1 L (3.5-5.0) g/dL Globulin 2.4 (2.0-3.5) g/dL Albumin/Globulin Ratio 1.3 (1.3-2.8) Yuriy Results Last 24 Hours: Microbiology 06/12/17 08:40 Aerobic Blood Culture - Preliminary Blood - Venous NO GROWTH AFTER 2 DAYS Anaerobic Blood Culture - Preliminary NO GROWTH AFTER 2 DAYS 06/12/17 08:27 Aerobic Blood Culture - Preliminary Blood - Venous NO GROWTH AFTER 2 DAYS Anaerobic Blood Culture - Preliminary NO GROWTH AFTER 2 DAYS 06/12/17 09:43 Urine Culture - Final Urine, Catheterized Escherichia Coli Med Orders - Current: Current Medications Acetaminophen (Tylenol) 650 mg PO Q4H PRN PRN Reason: Pain (Mild 1-3)/fever Albuterol/Ipratropium (Duoneb 3.0-0.5 Mg/3 Ml) 3 ml NEB Q4HRRT PRN PRN Reason: SOB/wheezing Albuterol/Ipratropium (Duoneb 3.0-0.5 Mg/3 Ml) 3 ml NEB TID@1000,1400,2200 [facility] Last Admin: 06/13/17 21:24 Dose: 3 ml Ascorbic Acid (Vitamin C) 1,000 mg PO DAILY [facility] Last Admin: 06/13/17 08:06 Dose: 1,000 mg Aspirin (Aspirin) 325 mg PO DAILY [facility] Last Admin: 06/13/17 08:06 Dose: 325 mg Atorvastatin Calcium (Lipitor) 40 mg PO BEDTIME [facility] Last Admin: 06/13/17 21:14 Dose: 40 mg Bisacodyl (Dulcolax) 5 mg PO DAILY PRN PRN Reason: Constipation Clonidine HCl (Catapres-Tts 3) 0.3 mg TRDERM Q7D [facility] Diltiazem HCl (Cardizem Cd) 180 mg PO DAILY [facility] Last Admin: 06/13/17 08:07 Dose: 180 mg Fentanyl (Duragesic) 25 mcg TRDERM Q72H [facility] Ferrous Sulfate (Ferrous Sulfate) 325 mg PO DAILY [facility] Last Admin: 06/13/17 08:07 Dose: 325 mg Glimepiride (Amaryl) 2 mg PO WITHBREAKFAST [facility] Last Admin: 06/14/17 08:36 Dose: 2 mg Vancomycin HCl 1,750 mg/ (Sodium Chloride) 500 mls @ 250 mls/hr IV Q24H [facility] Last Admin: 06/13/17 12:07 Dose: 250 mls/hr Cefepime HCl 2 gm/ Premix 50 mls @ 100 mls/hr IV Q12H [facility] Last Admin: 06/13/17 21:14 Dose: 100 mls/hr Levofloxacin/Dextrose 750 mg/ (Premix) 150 mls @ 100 mls/hr IV Q48H [facility] Magnesium Sulfate 2 gm/ Premix 50 mls @ 50 mls/hr IV ONETIME ONE Stop: 06/14/17 09:12 Last Admin: 06/14/17 08:35 Dose: 50 mls/hr Insulin Aspart (Novolog) 0 unit SUBCUT ACBED [facility] PRN Reason: Protocol Last Admin: 06/14/17 06:42 Dose: 4 units Insulin Glargine (Lantus Solostar) 22 units SUBCUT BEDTIME [facility] Last Admin: 06/13/17 21:12 Dose: 22 units Levothyroxine Sodium (Synthroid) 50 mcg PO SuTuThSa@0730 [facility] Last Admin: 06/14/17 06:41 Dose: 50 mcg Levothyroxine Sodium (Levothyroxine) 75 mcg PO MoWeFr@0730 [facility] Metoprolol Tartrate (Lopressor) 75 mg PO TID [facility] Last Admin: 06/14/17 06:41 Dose: 75 mg Metoprolol Tartrate (Lopressor) 5 mg IVPUSH Q2H PRN PRN Reason: Tachycardia Last Admin: 06/13/17 16:36 Dose: 5 mg Mirtazapine (Remeron) 45 mg PO BEDTIME [facility] Last Admin: 06/13/17 21:14 Dose: 45 mg Multivitamins/Minerals (Thera M Plus) 1 tab PO DAILY [facility] Last Admin: 06/13/17 08:07 Dose: 1 tab Mupirocin (Bactroban Crm) 1 gm TOP TID [facility] Last Admin: 06/14/17 06:42 Dose: 1 applic Ondansetron HCl (Zofran) 4 mg IVPUSH Q4H PRN PRN Reason: Nausea Paroxetine HCl (Paxil) 40 mg PO DAILY [facility] Last Admin: 06/13/17 08:06 Dose: 40 mg Dulaglutide [ (Trulicity]) 0 each SUBCUT Q7D [facility] Breo Ellipta ( Fluticasone/Vilanterol) 1 each INH DAILY [facility] Last Admin: 06/13/17 10:34 Dose: Not Given Polyethylene Glycol (Miralax) 17 gm PO DAILY PRN PRN Reason: Constipation Last Admin: 06/12/17 18:20 Dose: 17 gm Prednisone (Prednisone) 10 mg PO DAILY [facility] Last Admin: 06/13/17 08:06 Dose: 10 mg Rivaroxaban (Xarelto) 15 mg PO DAILY [facility] Last Admin: 06/13/17 08:07 Dose: 15 mg Sodium Chloride (Saline Flush) 10 ml FLUSH ASDIRECTED PRN PRN Reason: Keep Vein Open Sodium Chloride (Saline Flush) 2.5 ml FLUSH ASDIRECTED PRN PRN Reason: Keep Vein Open Temazepam (Restoril) 15 mg PO BEDTIME [facility] Last Admin: 06/13/17 21:13 Dose: 15 mg Vancomycin HCl (Pharmacy To Dose - Vancomycin) 1 dose .XX ASDIRECTED [facility] Wound Care/Dressing Products (Duoderm Cgf) 1 each TOP Q72H [facility] Last Admin: 06/12/17 11:41 Dose: 1 each Discontinued Medications Albuterol/Ipratropium (Duoneb 3.0-0.5 Mg/3 Ml) 3 ml NEB Q4H [facility] Last Admin: 06/12/17 15:46 Dose: Not Given Clonidine HCl (Catapres-Tts 1) 0.3 mg TRDERM ASDIRECTED [facility] Diltiazem HCl (Diltiazem) 20 mg IVPUSH ONETIME ONE Stop: 06/12/17 06:21 Last Admin: 06/12/17 08:15 Dose: 20 mg Diltiazem HCl (Diltiazem) 10 mg IVPUSH ONETIME ONE Stop: 06/12/17 19:05 Last Admin: 06/12/17 19:21 Dose: 15 mg Diltiazem HCl (Diltiazem) 10 mg IVPUSH ONETIME ONE Stop: 06/12/17 19:52 Last Admin: 06/12/17 20:19 Dose: 10 mg Diltiazem HCl (Cardizem Cd) 120 mg PO DAILY [facility] Fentanyl (Duragesic) 25 mcg TRDERM Q72H [facility] Last Admin: 06/12/17 15:46 Dose: Not Given Furosemide (Lasix) 40 mg IVPUSH NOW ONE Stop: 06/12/17 05:56 Last Admin: 06/12/17 08:47 Dose: 40 mg Furosemide (Lasix) Confirm Administered Dose 40 mg .ROUTE .STK-MED ONE Stop: 06/12/17 08:34 Last Admin: 06/12/17 08:44 Dose: Not Given Furosemide (Lasix) 40 mg PO DAILY [facility] Last Admin: 06/13/17 08:06 Dose: 40 mg Furosemide (Lasix) 40 mg IVPUSH NOW ONE Stop: 06/13/17 14:25 Last Admin: 06/13/17 14:52 Dose: 40 mg Furosemide (Lasix) 40 mg IVPUSH NOW ONE Stop: 06/14/17 08:07 Last Admin: 06/14/17 08:44 Dose: 40 mg Glimepiride (Glimepiride) 2 mg PO WITHBREAKFAST [facility] Last Admin: 06/12/17 15:47 Dose: Not Given Sodium Chloride (Normal Saline) 1,000 mls @ 30 mls/hr IV STAT [facility] Last Admin: 06/12/17 08:40 Dose: 30 mls/hr Lidocaine HCl (Xylocaine-Mpf 1%) Confirm Administered Dose 4 mls @ as directed .ROUTE .[facility] ONE Stop: 06/12/17 06:47 Last Admin: 06/12/17 07:55 Dose: Not Given Levofloxacin/Dextrose 750 mg/ (Premix) 150 mls @ 100 mls/hr IV ONETIME ONE Stop: 06/12/17 09:55 Last Admin: 06/12/17 08:50 Dose: 100 mls/hr Levofloxacin/Dextrose 750 mg/ (Premix) 150 mls @ 100 mls/hr IV Q24H [facility] Last Admin: 06/13/17 08:07 Dose: 100 mls/hr Magnesium Sulfate 2 gm/ Premix 50 mls @ 50 mls/hr IV ONETIME ONE Stop: 06/13/17 14:00 Last Admin: 06/13/17 14:51 Dose: 50 mls/hr Levothyroxine Sodium (Levothyroxine) 75 mcg PO MoWeFr@0730 [facility] Levothyroxine Sodium (Synthroid) 50 mcg PO ASDIRECTED ADRIAN Lidocaine HCl (Xylocaine 1%) 20 ml INJECT ONETIME ONE Stop: 06/12/17 07:52 Last Admin: 06/12/17 07:54 Dose: 20 ml Lidocaine HCl (Xylocaine 1%) Confirm Administered Dose 20 ml .ROUTE .STK-MED ONE Stop: 06/12/17 07:54 Last Admin: 06/12/17 08:24 Dose: Not Given Lidocaine/Epinephrine (Xylocaine 1% With Epinephrine 1:100,000) Confirm Administered Dose 20 ml .ROUTE .STK-MED ONE Stop: 06/12/17 07:53 Last Admin: 06/12/17 08:23 Dose: Not Given Methylprednisolone Sodium Succinate (Solu-Medrol) 125 mg IVPUSH ONETIME ONE Stop: 06/12/17 05:56 Last Admin: 06/12/17 08:44 Dose: 125 mg Methylprednisolone Sodium Succinate (Solu-Medrol) Confirm Administered Dose 125 mg .ROUTE .STK-MED ONE Stop: 06/12/17 08:34 Last Admin: 06/12/17 08:44 Dose: Not Given Metoprolol Tartrate (Lopressor) 5 mg IVPUSH ONETIME ONE Stop: 06/12/17 14:23 Last Admin: 06/12/17 14:35 Dose: 5 mg Potassium Chloride (Klor-Con M20) 40 meq PO ONETIME ONE Stop: 06/12/17 11:13 Last Admin: 06/12/17 11:41 Dose: 40 meq Potassium Chloride (Klor-Con M20) 40 meq PO ONETIME ONE Stop: 06/14/17 08:14 Last Admin: 06/14/17 08:37 Dose: 40 meq - Exam Quality Assessment: Supplemental Oxygen, Central Line/PICC (PICC to R upper arm) , Urine Catheter, DVT Prophylaxis General: Alert, Oriented, Cooperative, No Acute Distress Neck: Supple Lungs: Decreased Breath Sounds (bibasilar), Rales (fine to bilateral bases) Cardiovascular: Regular Rate, Irregular Rhythm. No: Tachycardia GI/Abdominal Exam: Normal Bowel Sounds, Soft, Non-Tender, No Organomegaly, No Distention, No Abnormal Bruit, No Mass, Pelvis Stable, Other (obese abdomen) Extremities: Other (extensive anasarca noted, L > R, to both upper and lower extremities. Lower extremities +2-3 pitting edema extending from feet to hips. + 2 edema to upper extremities. Scant improvement from yesterday) Skin: Ecchymosis (scant bruising noted around femoral central line site, this was removed. No pain or redness noted.) Wound/Incisions: Dressing Dry and Intact Neurological: No New Focal Deficit Psy/Mental Status: Alert, Normal Affect, Normal Mood - Problem List & Annotations (1) Anasarca SNOMED Code(s): 852469358 Code(s): R60.1 - GENERALIZED EDEMA Status: Chronic Priority: High Current Visit: No (2) Atrial fibrillation with rapid ventricular response SNOMED Code(s): 152034969228402 Code(s): I48.91 - UNSPECIFIED ATRIAL FIBRILLATION Status: Acute Current Visit: Yes (3) Dyspnea SNOMED Code(s): 034735914 Code(s): R06.00 - DYSPNEA, UNSPECIFIED Status: Acute Current Visit: Yes Qualifiers: Dyspnea type: shortness of breath Qualified Code(s): R06.02 - Shortness of breath; R06.00 - Dyspnea, unspecified; R06.01 - Orthopnea (4) Hypoxemia SNOMED Code(s): 465808401 Code(s): R09.02 - HYPOXEMIA Status: Acute Current Visit: Yes (5) HTN (hypertension) SNOMED Code(s): 63352322 Code(s): I10 - ESSENTIAL (PRIMARY) HYPERTENSION Status: Acute Current Visit: No Qualifiers: Hypertension type: essential hypertension Qualified Code(s): I10 - Essential (primary) hypertension (6) Polymyalgia rheumatica syndrome SNOMED Code(s): 09427313 Code(s): M35.3 - POLYMYALGIA RHEUMATICA Status: Chronic Current Visit: No (7) Renal insufficiency SNOMED Code(s): 528758571 Code(s): N28.9 - DISORDER OF KIDNEY AND URETER, UNSPECIFIED Status: Chronic Current Visit: No (8) Asplenia SNOMED Code(s): 631574338 Code(s): Q89.01 - ASPLENIA (CONGENITAL) Status: Chronic Current Visit: No Annotation/Comment:: Splenectomy 2008 (9) DM type 2 (diabetes mellitus, type 2) SNOMED Code(s): 69084143 Code(s): E11.9 - TYPE 2 DIABETES MELLITUS WITHOUT COMPLICATIONS Status: Chronic Priority: High Current Visit: No Qualifiers: Diabetes mellitus complication status: with neurologic complications Diabetes mellitus complication detail: with other neurological complication Diabetes mellitus 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 insulin use: with 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 use Qualified Code(s) : E11.49 - Type 2 diabetes mellitus with other diabetic neurological complication; Z79.4 - long term care pharmacist (current) use of insulin (10) History of CVA (cerebrovascular accident) SNOMED Code(s): 647584526 Code(s): Z86.73 - PRSNL HX OF TIA (TIA), AND CEREB INFRC W/O RESID DEFICITS Status: Chronic Current Visit: No (11) Hypothyroidism SNOMED Code(s): 50448934 Code(s): E03.9 - HYPOTHYROIDISM, UNSPECIFIED Status: Chronic Current Visit: No Qualifiers: Hypothyroidism type: unspecified Qualified Code(s): E03.9 - Hypothyroidism , unspecified (12) Morbid obesity SNOMED Code(s): 862564772 Code(s): E66.01 - MORBID (SEVERE) OBESITY DUE TO EXCESS CALORIES Status: Chronic Priority: High Current Visit: No (13) Wheelchair bound SNOMED Code(s): 022874355 Code(s): Z99.3 - DEPENDENCE ON WHEELCHAIR Status: Chronic Current Visit: Yes (14) CHF (congestive heart failure) SNOMED Code(s): 95989841 Code(s): I50.9 - HEART FAILURE, UNSPECIFIED Status: Acute Current Visit: Yes Qualifiers: Congestive heart failure type: systolic - Problem List Review Problem List Initiated/Reviewed/Updated: Yes - My Orders Last 24 Hours: My Active Orders 06/13/17 08:50 Consult to Physician [CONS] Routine 06/13/17 08:51 Notify Provider Consults [RC] ASDIRECTED 06/13/17 09:15 Cefepime [Maxipime in D5W 2 GM/50 ML] 2 gm Premix Bag 1 bag IV Q12H 06/13/17 14:57 Daily Weight [Height and Weight] [RC] DAILY Intake and Output Strict [RC] Q12H 06/13/17 16:31 Central Venous Line Discontinue [OM.PC] Routine 06/14/17 08:13 Magnesium Sulfate/Water [Magnesium Sulfate 2 GM in Water 50 ML] 2 gm Premix Bag 1 bag IV ONETIME - Plan Plan:: This 56 year old female admitted for health care associated pneumonia, covering for possible gram negative infection, dyspnea, and hypoxemia 1. Health care associated pneumonia: Continue broad spectrum antibiotics for possible gram negative infection, due to living in SNF and having recent admission to the hospital. Danae continues to state dyspnea is improving, but more concerned about edema. Leukocytosis remains 15,000, which may be near baseline due to chronic Prednisone use. Femoral central line removed yesterday after PICC line placed. 2. UTI: E coli grew out on UC, resistant to Levaquin and Bactrim. Continue Cefepime. 3. A fb RVR: HR improved overnight, 80-100s, Continue on Metoprolol 75 TID and Diltiazem [address] Barreto, consulted. Continue Xarelto for chronic anticoagulation. 4. CHF: Last Echo 05/04/2017 revealed EF 45-50% with mild LVH. Moderate anasarca noted. Given extra IV dose of Lasix yesterday, will again give Lasix 40 mg IV BID and monitor. negative only 900 ml. Daily weights, strict I/O and 2 L FR added to diet, low sodium. Keep munoz in place for accurate I/O 5. CKD: stable. BUN 45 and Cr 1.5, consult for It Technician as outpatient scheduled for July with Dr. Helm. 6. HTN: stable. Continue Clonidine patch. 7. COPD: remains stable, no wheezing. Continue Breo, Duonebs and Proair. Oxygen dependent at 4 L NC continuously. 8. DM type 2: BS improved slightly to high 200s. Continue Amaryl, Lantus, and add Novolog SSI. Hold Metformin for now. Monitor. 9. CAD: Stable, Continue Lipitor. 10. Hx polymyalgia rheumatica: Prednisone 10 mg daily. VTE prophylaxis: Xarelto Dispo: 2-3 days pending improvement
[2017-06-14] MEDS: BREO ELLIPTA INH SCH (09:31)
[2017-06-14] MEDS: Ascorbic Acid 500 MG Tab PO SCH (09:39)
[2017-06-14] MEDS: fentaNYL 25 MCG/HR Transdermal Patch TRDERM SCH (09:40)
[2017-06-14] MEDS: Albuterol/Ipratropium 3.0-0.5 MG/3 ML Neb Soln NEB SCH ×3 (10:03→21:42)
[2017-06-14] MEDS: Cefepime 2 GM in Premix Bag 1 BAG IV SCH ×2 (10:22→21:17)
[2017-06-14] MEDS: Furosemide 40 MG/4 ML VIAL IVPUSH SCH (13:08)
--- NOTE | 2017-06-14 13:20 | PCM.PN ---
- General Info Date of Service: 06/14/17 Admission Dx/Problem (Free Text): 56F chronic persistent afib CAD s/p PCI with HF/PNA - Review of Systems General: Reports: No Symptoms, Weakness HEENT: Reports: No Symptoms Pulmonary: Reports: Shortness of Breath Cardiovascular: Reports: No Symptoms Gastrointestinal: Reports: No Symptoms Genitourinary: Reports: No Symptoms Musculoskeletal: Reports: No Symptoms Skin: Reports: No Symptoms Neurological: Reports: No Symptoms Psychiatric: Reports: No Symptoms - Patient Data Vitals - Most Recent: Last Vital Signs Temp 36.1 C 06/14/17 11:00 Pulse 83 06/14/17 11:00 Resp 20 06/14/17 11:00 BP 113/81 06/14/17 11:00 Pulse Ox 91 L 06/14/17 11:00 Weight - Most Recent: 117.48 kg I&O - Last 24 Hours: Intake & Output 06/13/17 06/14/17 06/14/17 22:59 06:59 14:59 Intake Total 840 200 100 Output Total 900 1100 Balance -60 -900 100 Lab Results Last 24 Hours: Laboratory Results - last 24 hr 06/13/17 06/13/17 06/14/17 Range/Units 17:10 21:09 04:56 WBC 15.30 H (4.0-11.0) K/uL RBC 3.47 L (4.30-5.90) M/uL Hgb 10.4 L (12.0-16.0) g/dL Hct 34.4 L (36.0-46.0) % MCV 99.1 H (80.0-98.0) fL MCH 30.0 (27.0-32.0) pg MCHC 30.2 L (31.0-37.0) g/dL RDW Std Deviation 62.2 H (28.0-62.0) fl RDW Coeff of Leia 17 H (11.0-15.0) % Plt Count 332 (150-400) K/uL MPV 12.00 (7.40-12.00) fL Neut % (Auto) 77.7 (48.0-80.0) % Lymph % (Auto) 12.8 L (16.0-40.0) % Moca % (Auto) 7.3 (0.0-15.0) % Eos % (Auto) 1.9 (0.0-7.0) % Baso % (Auto) 0.3 (0.0-1.5) % Neut # (Auto) 11.9 H (1.4-5.7) K/uL Lymph # (Auto) 2.0 (0.6-2.4) K/uL Moca # (Auto) 1.1 H (0.0-0.8) K/uL Eos # (Auto) 0.3 (0.0-0.7) K/uL Baso # (Auto) 0.0 (0.0-0.1) K/uL Nucleated RBC % 0.8 /100WBC Nucleated RBCs # 0 K/uL Sodium (136-146) mmol/L Potassium (3.5-5.1) mmol/L Chloride (98-110) mmol/L Carbon Dioxide (21-31) mmol/L BUN (6.0-23.0) mg/dL Creatinine (0.6-1.5) mg/dL Est Cr Clr Drug Dosing mL/min Estimated GFR (MDRD) ml/min Glucose (60-110) mg/dL POC Glucose 373 H 383 H (60-110) mg/dL Calcium (8.8-10.8) mg/dL Magnesium (1.5-2.3) mEq/L Total Bilirubin (0.1-1.5) mg/dL AST (5-40) IU/L ALT (8-54) IU/L Alkaline Phosphatase (40-150) Total Protein (6.0-8.0) g/dL Albumin (3.5-5.0) g/dL Globulin (2.0-3.5) g/dL Albumin/Globulin Ratio (1.3-2.8) 06/14/17 06/14/17 06/14/17 Range/Units 04:56 06:05 11:47 WBC (4.0-11.0) K/uL RBC (4.30-5.90) M/uL Hgb (12.0-16.0) g/dL Hct (36.0-46.0) % MCV (80.0-98.0) fL MCH (27.0-32.0) pg MCHC (31.0-37.0) g/dL RDW Std Deviation (28.0-62.0) fl RDW Coeff of Leia (11.0-15.0) % Plt Count (150-400) K/uL MPV (7.40-12.00) fL Neut % (Auto) (48.0-80.0) % Lymph % (Auto) (16.0-40.0) % Moca % (Auto) (0.0-15.0) % Eos % (Auto) (0.0-7.0) % Baso % (Auto) (0.0-1.5) % Neut # (Auto) (1.4-5.7) K/uL Lymph # (Auto) (0.6-2.4) K/uL Moca # (Auto) (0.0-0.8) K/uL Eos # (Auto) (0.0-0.7) K/uL Baso # (Auto) (0.0-0.1) K/uL Nucleated RBC % /100WBC Nucleated RBCs # K/uL Sodium 142 (136-146) mmol/L Potassium 3.8 (3.5-5.1) mmol/L Chloride 97 L (98-110) mmol/L Carbon Dioxide 33 H (21-31) mmol/L BUN 44 H (6.0-23.0) mg/dL Creatinine 1.5 (0.6-1.5) mg/dL Est Cr Clr Drug Dosing 35.56 mL/min Estimated GFR (MDRD) 35.7 ml/min Glucose 266 H (60-110) mg/dL POC Glucose 225 H 249 H (60-110) mg/dL Calcium 8.8 (8.8-10.8) mg/dL Magnesium 1.7 (1.5-2.3) mEq/L Total Bilirubin 0.3 (0.1-1.5) mg/dL AST 20 (5-40) IU/L ALT 42 (8-54) IU/L Alkaline Phosphatase 71 (40-150) Total Protein 5.5 L (6.0-8.0) g/dL Albumin 3.1 L (3.5-5.0) g/dL Globulin 2.4 (2.0-3.5) g/dL Albumin/Globulin Ratio 1.3 (1.3-2.8) Yuriy Results Last 24 Hours: Microbiology 06/12/17 08:40 Aerobic Blood Culture - Preliminary Blood - Venous NO GROWTH AFTER 2 DAYS Anaerobic Blood Culture - Preliminary NO GROWTH AFTER 2 DAYS 06/12/17 08:27 Aerobic Blood Culture - Preliminary Blood - Venous NO GROWTH AFTER 2 DAYS Anaerobic Blood Culture - Preliminary NO GROWTH AFTER 2 DAYS 06/12/17 09:43 Urine Culture - Final Urine, Catheterized Escherichia Coli Med Orders - Current: Current Medications Acetaminophen (Tylenol) 650 mg PO Q4H PRN PRN Reason: Pain (Mild 1-3)/fever Albuterol/Ipratropium (Duoneb 3.0-0.5 Mg/3 Ml) 3 ml NEB Q4HRRT PRN PRN Reason: SOB/wheezing Albuterol/Ipratropium (Duoneb 3.0-0.5 Mg/3 Ml) 3 ml NEB TID@1000,1400,2200 [facility] Last Admin: 06/14/17 10:03 Dose: 3 ml Ascorbic Acid (Vitamin C) 1,000 mg PO DAILY [facility] Last Admin: 06/14/17 09:39 Dose: 1,000 mg Aspirin (Aspirin) 325 mg PO DAILY [facility] Last Admin: 06/14/17 09:09 Dose: 325 mg Atorvastatin Calcium (Lipitor) 40 mg PO BEDTIME [facility] Last Admin: 06/13/17 21:14 Dose: 40 mg Bisacodyl (Dulcolax) 5 mg PO DAILY PRN PRN Reason: Constipation Clonidine HCl (Catapres-Tts 3) 0.3 mg TRDERM Q7D [facility] Diltiazem HCl (Cardizem Cd) 120 mg PO BID [facility] Fentanyl (Duragesic) 25 mcg TRDERM Q72H [facility] Last Admin: 06/14/17 09:40 Dose: 25 mcg Ferrous Sulfate (Ferrous Sulfate) 325 mg PO DAILY [facility] Last Admin: 06/14/17 09:11 Dose: 325 mg Furosemide (Lasix) 40 mg IVPUSH BIDDIURETIC [facility] Glimepiride (Amaryl) 2 mg PO WITHBREAKFAST [facility] Last Admin: 06/14/17 08:36 Dose: 2 mg Vancomycin HCl 1,750 mg/ (Sodium Chloride) 500 mls @ 250 mls/hr IV Q24H [facility] Last Admin: 06/14/17 11:54 Dose: 250 mls/hr Cefepime HCl 2 gm/ Premix 50 mls @ 100 mls/hr IV Q12H [facility] Last Admin: 06/14/17 10:22 Dose: 100 mls/hr Levofloxacin/Dextrose 750 mg/ (Premix) 150 mls @ 100 mls/hr IV Q48H [facility] Insulin Aspart (Novolog) 0 unit SUBCUT ACBED ADRIAN PRN Reason: Protocol Last Admin: 06/14/17 06:42 Dose: 4 units Insulin Glargine (Lantus Solostar) 22 units SUBCUT BEDTIME [facility] Last Admin: 06/13/17 21:12 Dose: 22 units Levothyroxine Sodium (Synthroid) 50 mcg PO [id number] [facility] Last Admin: 06/14/17 06:41 Dose: 50 mcg Levothyroxine Sodium (Levothyroxine) 75 mcg PO [id number]@30 [facility] Metoprolol Tartrate (Lopressor) 75 mg PO TID [facility] Last Admin: 06/14/17 06:41 Dose: 75 mg Metoprolol Tartrate (Lopressor) 5 mg IVPUSH Q2H PRN PRN Reason: Tachycardia Last Admin: 06/13/17 16:36 Dose: 5 mg Mirtazapine (Remeron) 45 mg PO BEDTIME [facility] Last Admin: 06/13/17 21:14 Dose: 45 mg Multivitamins/Minerals (Thera M Plus) 1 tab PO DAILY [facility] Last Admin: 06/14/17 09:11 Dose: 1 tab Mupirocin (Bactroban Crm) 1 gm TOP TID [facility] Last Admin: 06/14/17 06:42 Dose: 1 applic Ondansetron HCl (Zofran) 4 mg IVPUSH Q4H PRN PRN Reason: Nausea Last Admin: 06/14/17 10:32 Dose: 4 mg Paroxetine HCl (Paxil) 40 mg PO DAILY [facility] Last Admin: 06/14/17 09:10 Dose: 40 mg Dulaglutide [ (Trulicity]) 0 each SUBCUT Q7D [facility] Last Admin: 06/14/17 09:43 Dose: Not Given Breo Ellipta ( Fluticasone/Vilanterol) 1 each INH DAILY [facility] Last Admin: 06/14/17 09:31 Dose: Not Given Polyethylene Glycol (Miralax) 17 gm PO DAILY PRN PRN Reason: Constipation Last Admin: 06/12/17 18:20 Dose: 17 gm Prednisone (Prednisone) 10 mg PO DAILY [facility] Last Admin: 06/14/17 09:09 Dose: 10 mg Rivaroxaban (Xarelto) 15 mg PO DAILY [facility] Last Admin: 06/14/17 09:09 Dose: 15 mg Sodium Chloride (Saline Flush) 10 ml FLUSH ASDIRECTED PRN PRN Reason: Keep Vein Open Sodium Chloride (Saline Flush) 2.5 ml FLUSH ASDIRECTED PRN PRN Reason: Keep Vein Open Temazepam (Restoril) 15 mg PO BEDTIME [facility] Last Admin: 06/13/17 21:13 Dose: 15 mg Vancomycin HCl (Pharmacy To Dose - Vancomycin) 1 dose .XX ASDIRECTED [facility] Wound Care/Dressing Products (Duoderm Cgf) 1 each TOP Q72H [facility] Last Admin: 06/12/17 11:41 Dose: 1 each Discontinued Medications Albuterol/Ipratropium (Duoneb 3.0-0.5 Mg/3 Ml) 3 ml NEB Q4H [facility] Last Admin: 06/12/17 15:46 Dose: Not Given Clonidine HCl (Catapres-Tts 1) 0.3 mg TRDERM ASDIRECTED [facility] Diltiazem HCl (Diltiazem) 20 mg IVPUSH ONETIME ONE Stop: 06/12/17 06:21 Last Admin: 06/12/17 08:15 Dose: 20 mg Diltiazem HCl (Cardizem Cd) 180 mg PO DAILY [facility] Last Admin: 06/14/17 09:11 Dose: 180 mg Diltiazem HCl (Diltiazem) 10 mg IVPUSH ONETIME ONE Stop: 06/12/17 19:05 Last Admin: 06/12/17 19:21 Dose: 15 mg Diltiazem HCl (Diltiazem) 10 mg IVPUSH ONETIME ONE Stop: 06/12/17 19:52 Last Admin: 06/12/17 20:19 Dose: 10 mg Diltiazem HCl (Cardizem Cd) 120 mg PO DAILY [facility] Fentanyl (Duragesic) 25 mcg TRDERM Q72H [facility] Last Admin: 06/12/17 15:46 Dose: Not Given Furosemide (Lasix) 40 mg IVPUSH NOW ONE Stop: 06/12/17 05:56 Last Admin: 06/12/17 08:47 Dose: 40 mg Furosemide (Lasix) Confirm Administered Dose 40 mg .ROUTE .STK-MED ONE Stop: 06/12/17 08:34 Last Admin: 06/12/17 08:44 Dose: Not Given Furosemide (Lasix) 40 mg PO DAILY [facility] Last Admin: 06/13/17 08:06 Dose: 40 mg Furosemide (Lasix) 40 mg IVPUSH NOW ONE Stop: 06/13/17 14:25 Last Admin: 06/13/17 14:52 Dose: 40 mg Furosemide (Lasix) 40 mg IVPUSH NOW ONE Stop: 06/14/17 08:07 Last Admin: 06/14/17 08:44 Dose: 40 mg Glimepiride (Glimepiride) 2 mg PO WITHBREAKFAST ADRIAN Last Admin: 06/12/17 15:47 Dose: Not Given Sodium Chloride (Normal Saline) 1,000 mls @ 30 mls/hr IV STAT ADRIAN Last Admin: 06/12/17 08:40 Dose: 30 mls/hr Lidocaine HCl (Xylocaine-Mpf 1%) Confirm Administered Dose 4 mls @ as directed .ROUTE .STK-MED ONE Stop: 06/12/17 06:47 Last Admin: 06/12/17 07:55 Dose: Not Given Levofloxacin/Dextrose 750 mg/ (Premix) 150 mls @ 100 mls/hr IV ONETIME ONE Stop: 06/12/17 09:55 Last Admin: 06/12/17 08:50 Dose: 100 mls/hr Levofloxacin/Dextrose 750 mg/ (Premix) 150 mls @ 100 mls/hr IV Q24H [facility] Last Admin: 06/13/17 08:07 Dose: 100 mls/hr Magnesium Sulfate 2 gm/ Premix 50 mls @ 50 mls/hr IV ONETIME ONE Stop: 06/13/17 14:00 Last Admin: 06/13/17 14:51 Dose: 50 mls/hr Magnesium Sulfate 2 gm/ Premix 50 mls @ 50 mls/hr IV ONETIME ONE Stop: 06/14/17 09:12 Last Admin: 06/14/17 08:35 Dose: 50 mls/hr Levothyroxine Sodium (Levothyroxine) 75 mcg PO MoWeFr@[id number] ADRIAN Levothyroxine Sodium (Synthroid) 50 mcg PO ASDIRECTED ADRIAN Lidocaine HCl (Xylocaine 1%) 20 ml INJECT ONETIME ONE Stop: 06/12/17 07:52 Last Admin: 06/12/17 07:54 Dose: 20 ml Lidocaine HCl (Xylocaine 1%) Confirm Administered Dose 20 ml .ROUTE .STK-MED ONE Stop: 06/12/17 07:54 Last Admin: 06/12/17 08:24 Dose: Not Given Lidocaine/Epinephrine (Xylocaine 1% With Epinephrine 1:100,000) Confirm Administered Dose 20 ml .ROUTE .STK-MED ONE Stop: 06/12/17 07:53 Last Admin: 06/12/17 08:23 Dose: Not Given Methylprednisolone Sodium Succinate (Solu-Medrol) 125 mg IVPUSH ONETIME ONE Stop: 06/12/17 05:56 Last Admin: 06/12/17 08:44 Dose: 125 mg Methylprednisolone Sodium Succinate (Solu-Medrol) Confirm Administered Dose 125 mg .ROUTE .STK-MED ONE Stop: 06/12/17 08:34 Last Admin: 06/12/17 08:44 Dose: Not Given Metoprolol Tartrate (Lopressor) 5 mg IVPUSH ONETIME ONE Stop: 06/12/17 14:23 Last Admin: 06/12/17 14:35 Dose: 5 mg Potassium Chloride (Klor-Con M20) 40 meq PO ONETIME ONE Stop: 06/12/17 11:13 Last Admin: 06/12/17 11:41 Dose: 40 meq Potassium Chloride (Klor-Con M20) 40 meq PO ONETIME ONE Stop: 06/14/17 08:14 Last Admin: 06/14/17 08:37 Dose: 40 meq - Exam General: Alert, Oriented HEENT: Pupils Equal, Pupils Reactive Neck: Supple Lungs: Rales Cardiovascular: Irregular Rhythm, Tachycardia GI/Abdominal Exam: Normal Bowel Sounds, Soft, No Distention Extremities: Pedal Edema EKG INTERPRETATION Rhythm: A-Fib - Problem List Review Problem List Initiated/Reviewed/Updated: Yes - My Orders Last 24 Hours: My Active Orders 06/14/17 20:00 Diltiazem [Cardizem CD] 120 mg PO BID - Plan Plan:: This 56 year old female admitted for health care associated pneumonia, covering for possible gram negative infection, dyspnea, and hypoxemia 1. HCAP on IV Abx per hospitalist 2. Persistent afib RVR now HR 100-110, will increase cardizem to 120 BID, continue emtoprolol 75 TID, xarelto 15 daily 3. HF EF 45-50% will continue IV lasix for now, restrict fluid < 2L, watch for BMP 4. UTI abx per hospitalist
[2017-06-14] MEDS: Mirtazapine 15 MG Tab PO SCH (20:14)
[2017-06-14] MEDS: atorvaSTATin 40 MG Tab PO SCH (20:14)
[2017-06-14] MEDS: Temazepam 15 MG Cap PO SCH (20:15)
[2017-06-14] MEDS: Diltiazem 120 MG Cap.CD PO SCH ×2 (21:13→21:14)
[2017-06-14] MEDS: Insulin Glargine,Human Rec. Analog 100 Units/ML 3 ML Pen SUBCUT SCH (21:18)
[2017-06-15] MEDS: Mupirocin Crm 30 GM Tube TOP SCH ×3 (06:50→21:50)
[2017-06-15] MEDS: Metoprolol Tartrate 50 MG Tab PO SCH ×3 (06:51→21:42)
[2017-06-15] MEDS: Levothyroxine 75 MCG Tab PO SCH (06:51)
[2017-06-15] MEDS: Furosemide 40 MG/4 ML VIAL IVPUSH SCH ×3 (08:13→21:41)
[2017-06-15] MEDS: Diltiazem 120 MG Cap.CD PO SCH ×2 (08:14→20:20)
[2017-06-15] MEDS: Glimepiride 2 MG Tab PO SCH (08:14)
[2017-06-15] MEDS: Aspirin 325 MG Tab PO SCH (08:14)
[2017-06-15] MEDS: Rivaroxaban 15 MG Tab PO SCH (08:14)
[2017-06-15] MEDS: Multivitamins with Iron/Calcium/Folic Acid/Minerals Tab PO SCH (08:14)
[2017-06-15] MEDS: Ascorbic Acid 500 MG Tab PO SCH (08:15)
[2017-06-15] MEDS: Ferrous Sulfate 325 MG Tab PO SCH (08:15)
[2017-06-15] MEDS: PARoxetine 20 MG Tab PO SCH (08:15)
[2017-06-15] MEDS: Cefepime 2 GM in Premix Bag 1 BAG IV SCH ×2 (08:16→20:23)
[2017-06-15] MEDS: predniSONE 10 MG Tab PO SCH (08:16)
[2017-06-15] MEDS: Insulin Aspart 100 Units/ML 3 ML Pen SUBCUT SCH ×4 (08:24→20:22)
--- NOTE | 2017-06-15 08:49 | PCM.PN ---
- General Info Date of Service: 06/15/17 Admission Dx/Problem (Free Text): CHF, HCAP, UTI Subjective Update: Sitting up in chair, feeling better today, but edema continues. Dyspnea has improved. Has no complaints of pain. No chest pain or palpitations. Functional Status: Reports: Pain Controlled, Tolerating Diet - Review of Systems General: Reports: No Symptoms. Denies: Fever, Fatigue HEENT: Reports: No Symptoms. Denies: Headaches, Sinus Congestion, Sore Throat, Visual Changes Pulmonary: Reports: Shortness of Breath (intermittently, but improved since admission). Denies: Cough, Wheezing Cardiovascular: Reports: Dyspnea on Exertion, Edema. Denies: Chest Pain, Lightheadedness Gastrointestinal: Reports: No Symptoms. Denies: Abdominal Pain, Nausea, Vomiting Genitourinary: Reports: No Symptoms. Denies: Dysuria, Frequency, Burning Skin: Reports: No Symptoms Neurological: Reports: No Symptoms Psychiatric: Reports: No Symptoms - Patient Data Vitals - Most Recent: Last Vital Signs Temp 96.0 F 06/15/17 04:00 Pulse 93 06/15/17 08:14 Resp 24 H 06/15/17 04:00 BP 128/81 06/15/17 08:14 Pulse Ox 92 L 06/15/17 04:00 Weight - Most Recent: 117.48 kg I&O - Last 24 Hours: Intake & Output 06/14/17 06/15/17 06/15/17 22:59 06:59 14:59 Intake Total 1136 586 Output Total 665 475 Balance 471 111 Lab Results Last 24 Hours: Laboratory Results - last 24 hr 06/14/17 06/14/17 06/14/17 Range/Units 11:47 16:35 20:42 WBC (4.0-11.0) K/uL RBC (4.30-5.90) M/uL Hgb (12.0-16.0) g/dL Hct (36.0-46.0) % MCV (80.0-98.0) fL MCH (27.0-32.0) pg MCHC (31.0-37.0) g/dL RDW Std Deviation (28.0-62.0) fl RDW Coeff of Leia (11.0-15.0) % Plt Count (150-400) K/uL MPV (7.40-12.00) fL Neut % (Auto) (48.0-80.0) % Lymph % (Auto) (16.0-40.0) % [place] % (Auto) (0.0-15.0) % Eos % (Auto) (0.0-7.0) % Baso % (Auto) (0.0-1.5) % Neut # (Auto) (1.4-5.7) K/uL Lymph # (Auto) (0.6-2.4) K/uL [place] # (Auto) (0.0-0.8) K/uL Eos # (Auto) (0.0-0.7) K/uL Baso # (Auto) (0.0-0.1) K/uL Nucleated RBC % /100WBC Nucleated RBCs # K/uL Sodium (136-146) mmol/L Potassium (3.5-5.1) mmol/L Chloride (98-110) mmol/L Carbon Dioxide (21-31) mmol/L BUN (6.0-23.0) mg/dL Creatinine (0.6-1.5) mg/dL Est Cr Clr Drug Dosing mL/min Estimated GFR (MDRD) ml/min Glucose (60-110) mg/dL POC Glucose 249 H 324 H 289 H (60-110) mg/dL Calcium (8.8-10.8) mg/dL Magnesium (1.5-2.3) mEq/L Total Bilirubin (0.1-1.5) mg/dL AST (5-40) IU/L ALT (8-54) IU/L Alkaline Phosphatase (40-150) Total Protein (6.0-8.0) g/dL Albumin (3.5-5.0) g/dL Globulin (2.0-3.5) g/dL Albumin/Globulin Ratio (1.3-2.8) 06/15/17 06/15/17 Range/Units 04:46 04:46 WBC 15.91 H (4.0-11.0) K/uL RBC 3.52 L (4.30-5.90) M/uL Hgb 10.6 L (12.0-16.0) g/dL Hct 35.6 L (36.0-46.0) % MCV 101.1 H (80.0-98.0) fL MCH 30.1 (27.0-32.0) pg MCHC 29.8 L (31.0-37.0) g/dL RDW Std Deviation 63.1 H (28.0-62.0) fl RDW Coeff of Leia 17 H (11.0-15.0) % Plt Count 329 (150-400) K/uL MPV 12.60 H (7.40-12.00) fL Neut % (Auto) 78.4 (48.0-80.0) % Lymph % (Auto) 10.7 L (16.0-40.0) % [place] % (Auto) 7.9 (0.0-15.0) % Eos % (Auto) 2.8 (0.0-7.0) % Baso % (Auto) 0.2 (0.0-1.5) % Neut # (Auto) 12.5 H (1.4-5.7) K/uL Lymph # (Auto) 1.7 (0.6-2.4) K/uL [place] # (Auto) 1.3 H (0.0-0.8) K/uL Eos # (Auto) 0.5 (0.0-0.7) K/uL Baso # (Auto) 0.0 (0.0-0.1) K/uL Nucleated RBC % 1.2 /100WBC Nucleated RBCs # 0 K/uL Sodium 142 (136-146) mmol/L Potassium 4.4 (3.5-5.1) mmol/L Chloride 97 L (98-110) mmol/L Carbon Dioxide 35 H (21-31) mmol/L BUN 48 H (6.0-23.0) mg/dL Creatinine 1.6 H (0.6-1.5) mg/dL Est Cr Clr Drug Dosing 33.34 mL/min Estimated GFR (MDRD) 33.1 ml/min Glucose 289 H (60-110) mg/dL POC Glucose (60-110) mg/dL Calcium 9.0 (8.8-10.8) mg/dL Magnesium 2.0 (1.5-2.3) mEq/L Total Bilirubin 0.2 (0.1-1.5) mg/dL AST 27 (5-40) IU/L ALT 48 (8-54) IU/L Alkaline Phosphatase 96 (40-150) Total Protein 5.6 L (6.0-8.0) g/dL Albumin 3.1 L (3.5-5.0) g/dL Globulin 2.5 (2.0-3.5) g/dL Albumin/Globulin Ratio 1.2 L (1.3-2.8) Yuriy Results Last 24 Hours: Microbiology 06/12/17 08:40 Aerobic Blood Culture - Preliminary Blood - Venous NO GROWTH AFTER 3 DAYS Anaerobic Blood Culture - Preliminary NO GROWTH AFTER 3 DAYS 06/12/17 08:27 Aerobic Blood Culture - Preliminary Blood - Venous NO GROWTH AFTER 3 DAYS Anaerobic Blood Culture - Preliminary NO GROWTH AFTER 3 DAYS 06/12/17 09:43 Urine Culture - Final Urine, Catheterized Escherichia Coli Med Orders - Current: Current Medications Acetaminophen (Tylenol) 650 mg PO Q4H PRN PRN Reason: Pain (Mild 1-3)/fever Albuterol/Ipratropium (Duoneb 3.0-0.5 Mg/3 Ml) 3 ml NEB Q4HRRT PRN PRN Reason: SOB/wheezing Albuterol/Ipratropium (Duoneb 3.0-0.5 Mg/3 Ml) 3 ml NEB TID@1000,1400,2200 [facility] Last Admin: 06/14/17 21:42 Dose: 3 ml Ascorbic Acid (Vitamin C) 1,000 mg PO DAILY [facility] Last Admin: 06/15/17 08:15 Dose: 1,000 mg Aspirin (Aspirin) 325 mg PO DAILY [facility] Last Admin: 06/15/17 08:14 Dose: 325 mg Atorvastatin Calcium (Lipitor) 40 mg PO BEDTIME [facility] Last Admin: 06/14/17 20:14 Dose: 40 mg Bisacodyl (Dulcolax) 5 mg PO DAILY PRN PRN Reason: Constipation Clonidine HCl (Catapres-Tts 3) 0.3 mg TRDERM Q7D [facility] Diltiazem HCl (Cardizem Cd) 120 mg PO BID [facility] Last Admin: 06/15/17 08:14 Dose: 120 mg Fentanyl (Duragesic) 25 mcg TRDERM Q72H [facility] Last Admin: 06/14/17 09:40 Dose: 25 mcg Ferrous Sulfate (Ferrous Sulfate) 325 mg PO DAILY [facility] Last Admin: 06/15/17 08:15 Dose: 325 mg Furosemide (Lasix) 40 mg IVPUSH BIDDIURETIC [facility] Last Admin: 06/15/17 08:13 Dose: 40 mg Glimepiride (Amaryl) 2 mg PO WITHBREAKFAST [facility] Last Admin: 06/15/17 08:14 Dose: 2 mg Vancomycin HCl 1,750 mg/ (Sodium Chloride) 500 mls @ 250 mls/hr IV Q24H [facility] Last Admin: 06/14/17 11:54 Dose: 250 mls/hr Cefepime HCl 2 gm/ Premix 50 mls @ 100 mls/hr IV Q12H [facility] Last Admin: 06/15/17 08:16 Dose: 100 mls/hr Insulin Aspart (Novolog) 0 unit SUBCUT ACBED [facility] PRN Reason: Protocol Last Admin: 06/15/17 08:24 Dose: 4 units Insulin Glargine (Lantus Solostar) 22 units SUBCUT BEDTIME [facility] Last Admin: 06/14/17 21:18 Dose: 22 units Levothyroxine Sodium (Synthroid) 50 mcg PO [id number]@0730 [facility] Last Admin: 06/14/17 06:41 Dose: 50 mcg Levothyroxine Sodium (Levothyroxine) 75 mcg PO [id number]@0730 [facility] Last Admin: 06/15/17 06:51 Dose: 75 mcg Metoprolol Tartrate (Lopressor) 75 mg PO TID [facility] Last Admin: 06/15/17 06:51 Dose: 75 mg Metoprolol Tartrate (Lopressor) 5 mg IVPUSH Q2H PRN PRN Reason: Tachycardia Last Admin: 06/13/17 16:36 Dose: 5 mg Mirtazapine (Remeron) 45 mg PO BEDTIME [facility] Last Admin: 06/14/17 20:14 Dose: 45 mg Multivitamins/Minerals (Thera M Plus) 1 tab PO DAILY [facility] Last Admin: 06/15/17 08:14 Dose: 1 tab Mupirocin (Bactroban Crm) 1 gm TOP TID [facility] Last Admin: 06/15/17 06:50 Dose: 1 applic Ondansetron HCl (Zofran) 4 mg IVPUSH Q4H PRN PRN Reason: Nausea Last Admin: 06/14/17 10:32 Dose: 4 mg Paroxetine HCl (Paxil) 40 mg PO DAILY [facility] Last Admin: 06/15/17 08:15 Dose: 40 mg Dulaglutide [ (Trulicity]) 0 each SUBCUT Q7D [facility] Last Admin: 06/14/17 13:34 Dose: 1 each Breo Ellipta ( Fluticasone/Vilanterol) 1 each INH DAILY [facility] Last Admin: 06/14/17 09:31 Dose: Not Given Polyethylene Glycol (Miralax) 17 gm PO DAILY PRN PRN Reason: Constipation Last Admin: 06/12/17 18:20 Dose: 17 gm Prednisone (Prednisone) 10 mg PO DAILY [facility] Last Admin: 06/15/17 08:16 Dose: 10 mg Rivaroxaban (Xarelto) 15 mg PO DAILY [facility] Last Admin: 06/15/17 08:14 Dose: 15 mg Sodium Chloride (Saline Flush) 10 ml FLUSH ASDIRECTED PRN PRN Reason: Keep Vein Open Sodium Chloride (Saline Flush) 2.5 ml FLUSH ASDIRECTED PRN PRN Reason: Keep Vein Open Temazepam (Restoril) 15 mg PO BEDTIME [facility] Last Admin: 06/14/17 20:15 Dose: 15 mg Vancomycin HCl (Pharmacy To Dose - Vancomycin) 1 dose .XX ASDIRECTED [facility] Wound Care/Dressing Products (Duoderm Cgf) 1 each TOP Q72H [facility] Last Admin: 06/12/17 11:41 Dose: 1 each Discontinued Medications Albuterol/Ipratropium (Duoneb 3.0-0.5 Mg/3 Ml) 3 ml NEB Q4H [facility] Last Admin: 06/12/17 15:46 Dose: Not Given Clonidine HCl (Catapres-Tts 1) 0.3 mg TRDERM ASDIRECTED [facility] Diltiazem HCl (Diltiazem) 20 mg IVPUSH ONETIME ONE Stop: 06/12/17 06:21 Last Admin: 06/12/17 08:15 Dose: 20 mg Diltiazem HCl (Cardizem Cd) 180 mg PO DAILY [facility] Last Admin: 06/14/17 09:11 Dose: 180 mg Diltiazem HCl (Diltiazem) 10 mg IVPUSH ONETIME ONE Stop: 06/12/17 19:05 Last Admin: 06/12/17 19:21 Dose: 15 mg Diltiazem HCl (Diltiazem) 10 mg IVPUSH ONETIME ONE Stop: 06/12/17 19:52 Last Admin: 06/12/17 20:19 Dose: 10 mg Diltiazem HCl (Cardizem Cd) 120 mg PO DAILY [facility] Fentanyl (Duragesic) 25 mcg TRDERM Q72H [facility] Last Admin: 06/12/17 15:46 Dose: Not Given Furosemide (Lasix) 40 mg IVPUSH NOW ONE Stop: 06/12/17 05:56 Last Admin: 06/12/17 08:47 Dose: 40 mg Furosemide (Lasix) Confirm Administered Dose 40 mg .ROUTE .STK-MED ONE Stop: 06/12/17 08:34 Last Admin: 06/12/17 08:44 Dose: Not Given Furosemide (Lasix) 40 mg PO DAILY [facility] Last Admin: 06/13/17 08:06 Dose: 40 mg Furosemide (Lasix) 40 mg IVPUSH NOW ONE Stop: 06/13/17 14:25 Last Admin: 06/13/17 14:52 Dose: 40 mg Furosemide (Lasix) 40 mg IVPUSH NOW ONE Stop: 06/14/17 08:07 Last Admin: 06/14/17 08:44 Dose: 40 mg Glimepiride (Glimepiride) 2 mg PO WITHBREAKFAST [facility] Last Admin: 06/12/17 15:47 Dose: Not Given Sodium Chloride (Normal Saline) 1,000 mls @ 30 mls/hr IV STAT [facility] Last Admin: 06/12/17 08:40 Dose: 30 mls/hr Lidocaine HCl (Xylocaine-Mpf 1%) Confirm Administered Dose 4 mls @ as directed .ROUTE .STK-MED ONE Stop: 06/12/17 06:47 Last Admin: 06/12/17 07:55 Dose: Not Given Levofloxacin/Dextrose 750 mg/ (Premix) 150 mls @ 100 mls/hr IV ONETIME ONE Stop: 06/12/17 09:55 Last Admin: 06/12/17 08:50 Dose: 100 mls/hr Levofloxacin/Dextrose 750 mg/ (Premix) 150 mls @ 100 mls/hr IV Q24H [facility] Last Admin: 06/13/17 08:07 Dose: 100 mls/hr Levofloxacin/Dextrose 750 mg/ (Premix) 150 mls @ 100 mls/hr IV Q48H [facility] Magnesium Sulfate 2 gm/ Premix 50 mls @ 50 mls/hr IV ONETIME ONE Stop: 06/13/17 14:00 Last Admin: 06/13/17 14:51 Dose: 50 mls/hr Magnesium Sulfate 2 gm/ Premix 50 mls @ 50 mls/hr IV ONETIME ONE Stop: 06/14/17 09:12 Last Admin: 06/14/17 08:35 Dose: 50 mls/hr Levothyroxine Sodium (Levothyroxine) 75 mcg PO MoWeFr@0730 [facility] Levothyroxine Sodium (Synthroid) 50 mcg PO ASDIRECTED [facility] Lidocaine HCl (Xylocaine 1%) 20 ml INJECT ONETIME ONE Stop: 06/12/17 07:52 Last Admin: 06/12/17 07:54 Dose: 20 ml Lidocaine HCl (Xylocaine 1%) Confirm Administered Dose 20 ml .ROUTE .STK-MED ONE Stop: 06/12/17 07:54 Last Admin: 06/12/17 08:24 Dose: Not Given Lidocaine/Epinephrine (Xylocaine 1% With Epinephrine 1:100,000) Confirm Administered Dose 20 ml .ROUTE .STK-MED ONE Stop: 06/12/17 07:53 Last Admin: 06/12/17 08:23 Dose: Not Given Methylprednisolone Sodium Succinate (Solu-Medrol) 125 mg IVPUSH ONETIME ONE Stop: 06/12/17 05:56 Last Admin: 06/12/17 08:44 Dose: 125 mg Methylprednisolone Sodium Succinate (Solu-Medrol) Confirm Administered Dose 125 mg .ROUTE .STK-MED ONE Stop: 06/12/17 08:34 Last Admin: 06/12/17 08:44 Dose: Not Given Metoprolol Tartrate (Lopressor) 5 mg IVPUSH ONETIME ONE Stop: 06/12/17 14:23 Last Admin: 06/12/17 14:35 Dose: 5 mg Potassium Chloride (Klor-Con M20) 40 meq PO ONETIME ONE Stop: 06/12/17 11:13 Last Admin: 06/12/17 11:41 Dose: 40 meq Potassium Chloride (Klor-Con M20) 40 meq PO ONETIME ONE Stop: 06/14/17 08:14 Last Admin: 06/14/17 08:37 Dose: 40 meq - Exam Quality Assessment: Supplemental Oxygen, Central Line/PICC, Urine Catheter, DVT Prophylaxis General: Alert, Oriented, Cooperative, No Acute Distress Neck: Supple Lungs: Decreased Breath Sounds Cardiovascular: Regular Rate, No Murmurs, Irregular Rhythm, Other (Anasarca) GI/Abdominal Exam: Normal Bowel Sounds, Soft, Non-Tender, No Organomegaly, No Distention, No Abnormal Bruit, No Mass, Pelvis Stable Extremities: Pedal Edema (+3 pitting edema to BLE extending up to hips and abdomen, +2 pitting to upper extremities) Wound/Incisions: Healing Well, No Drainage Neurological: No New Focal Deficit Psy/Mental Status: Alert, Normal Affect, Normal Mood - Problem List & Annotations (1) Anasarca SNOMED Code(s): 095743364 Code(s): R60.1 - GENERALIZED EDEMA Status: Chronic Priority: High Current Visit: No (2) Atrial fibrillation with rapid ventricular response SNOMED Code(s): 913963716926504 Code(s): I48.91 - UNSPECIFIED ATRIAL FIBRILLATION Status: Acute Current Visit: Yes (3) Dyspnea SNOMED Code(s): 805666715 Code(s): R06.00 - DYSPNEA, UNSPECIFIED Status: Acute Current Visit: Yes Qualifiers: Dyspnea type: shortness of breath Qualified Code(s): R06.02 - Shortness of breath; R06.00 - Dyspnea, unspecified; R06.01 - Orthopnea (4) Hypoxemia SNOMED Code(s): 688481942 Code(s): R09.02 - HYPOXEMIA Status: Acute Current Visit: Yes (5) HTN (hypertension) SNOMED Code(s): 13016858 Code(s): I10 - ESSENTIAL (PRIMARY) HYPERTENSION Status: Acute Current Visit: No Qualifiers: Hypertension type: essential hypertension Qualified Code(s): I10 - Essential (primary) hypertension (6) Polymyalgia rheumatica syndrome SNOMED Code(s): 26176017 Code(s): M35.3 - POLYMYALGIA RHEUMATICA Status: Chronic Current Visit: No (7) Renal insufficiency SNOMED Code(s): 884938521 Code(s): N28.9 - DISORDER OF KIDNEY AND URETER, UNSPECIFIED Status: Chronic Current Visit: No (8) Asplenia SNOMED Code(s): 789230843 Code(s): Q89.01 - ASPLENIA (CONGENITAL) Status: Chronic Current Visit: No Annotation/Comment:: Splenectomy 2008 (9) DM type 2 (diabetes mellitus, type 2) SNOMED Code(s): 75735380 Code(s): E11.9 - TYPE 2 DIABETES MELLITUS WITHOUT COMPLICATIONS Status: Chronic Priority: High Current Visit: No Qualifiers: Diabetes mellitus complication status: with neurologic complications Diabetes mellitus complication detail: with other neurological complication Diabetes mellitus intermediate designer insulin use: with skilled nursing use Qualified Code(s) : E11.49 - Type 2 diabetes mellitus with other diabetic neurological complication; Z79.4 - long-term (current) use of insulin (10) History of CVA (cerebrovascular accident) SNOMED Code(s): 077631167 Code(s): Z86.73 - PRSNL HX OF TIA (TIA), AND CEREB INFRC W/O RESID DEFICITS Status: Chronic Current Visit: No (11) Hypothyroidism SNOMED Code(s): 89905796 Code(s): E03.9 - HYPOTHYROIDISM, UNSPECIFIED Status: Chronic Current Visit: No Qualifiers: Hypothyroidism type: unspecified Qualified Code(s): E03.9 - Hypothyroidism , unspecified (12) Morbid obesity SNOMED Code(s): 331366992 Code(s): E66.01 - MORBID (SEVERE) OBESITY DUE TO EXCESS CALORIES Status: Chronic Priority: High Current Visit: No (13) Wheelchair bound SNOMED Code(s): 543580478 Code(s): Z99.3 - DEPENDENCE ON WHEELCHAIR Status: Chronic Current Visit: Yes (14) CHF (congestive heart failure) SNOMED Code(s): 75992593 Code(s): I50.9 - HEART FAILURE, UNSPECIFIED Status: Acute Current Visit: Yes Qualifiers: Congestive heart failure type: systolic - Problem List Review Problem List Initiated/Reviewed/Updated: Yes - My Orders Last 24 Hours: My Active Orders 06/14/17 14:00 Furosemide [Lasix] 40 mg IVPUSH BIDDIURETIC - Plan Plan:: This 56 year old female admitted for health care associated pneumonia, covering for possible gram negative infection, dyspnea, and hypoxemia 1. Health care associated pneumonia: Cefepime, will de-escalate antibiotics and Discontinue Vanco. Levaquin discontinued yesterday. NO sputum cultures. Leukocytosis remains 15,000, which may be near baseline due to chronic Prednisone use. Femoral central line removed yesterday after PICC line placed. 2. UTI: improving. E coli grew out on UC, resistant to Levaquin and Bactrim. Continue Cefepime. 3. A fb RVR: Continues to improve. Continue on Metoprolol [address] Barreto increased Diltiazem to 120mg BID. Continue Xarelto for chronic anticoagulation. 4. CHF: Moderate anasarca continues with little improvement. Will increase Lasix 40 mg IV to TID from BID and monitor. I/O positive overnight. Daily weights, strict I/O and 2 L FR and low sodium diet. Keep munoz in place for accurate I/O 5. CKD: Monitoring with IV Lasix administration. BUN 48 and Cr 1.6 today. Consult for [facility] as outpatient scheduled for July with Dr. Helm. 6. HTN: stable. Continue Clonidine patch. 7. COPD: remains stable, no wheezing. Continue Breo, Duonebs and Proair. Oxygen dependent at 4 L NC continuously. 8. DM type 2: BS improved slightly to high 200s. Continue Amaryl, Lantus, and add Novolog SSI. Hold Metformin for now. Monitor. 9. CAD: Stable, Continue Lipitor. 10. Hx polymyalgia rheumatica: Prednisone 10 mg daily. VTE prophylaxis: Xarelto Dispo: 2-3 days pending improvement
[2017-06-15] MEDS: Albuterol/Ipratropium 3.0-0.5 MG/3 ML Neb Soln NEB SCH ×3 (09:38→21:42)
[2017-06-15] MEDS ORDERED: Levofloxacin/Dextrose 5%-Water 750 MG in Premix Bag 1 BAG IV SCH (10:00)
[2017-06-15] MEDS: BREO ELLIPTA INH SCH (12:12)
[2017-06-15] MEDS: Hydrocolloid Dressing 4x4 Bandage TOP SCH (12:57)
[2017-06-15] MEDS: Insulin Glargine,Human Rec. Analog 100 Units/ML 3 ML Pen SUBCUT SCH (20:20)
[2017-06-15] MEDS: atorvaSTATin 40 MG Tab PO SCH (20:21)
[2017-06-15] MEDS: Mirtazapine 15 MG Tab PO SCH (20:21)
[2017-06-15] MEDS: Temazepam 15 MG Cap PO SCH (20:22)
[2017-06-16] MEDS: Acetaminophen 325 MG Tab PO PRN ×4 (02:49→21:19)
[2017-06-16] MEDS: Mupirocin Crm 30 GM Tube TOP SCH ×3 (06:02→21:08)
[2017-06-16] MEDS: Metoprolol Tartrate 50 MG Tab PO SCH ×3 (06:07→21:20)
[2017-06-16] MEDS: Furosemide 40 MG/4 ML VIAL IVPUSH SCH ×3 (06:07→21:04)
[2017-06-16] MEDS: Insulin Aspart 100 Units/ML 3 ML Pen SUBCUT SCH ×4 (07:29→21:02)
[2017-06-16] MEDS: Levothyroxine 50 MCG Tab PO SCH (07:30)
--- NOTE | 2017-06-16 07:43 | PCM.PN ---
- General Info Date of Service: 06/16/17 Admission Dx/Problem (Free Text): CHF, HCAP, UTI Subjective Update: Not able to get to chair this morning due to pain in L ankle. Given tylenol but still hurts. Denies any injury or trauma. No chest pain, SOB or palpitations. Constipated feeling. Functional Status: Reports: Pain Controlled, Tolerating Diet - Review of Systems General: Reports: No Symptoms. Denies: Fever HEENT: Reports: No Symptoms. Denies: Sore Throat Pulmonary: Denies: Shortness of Breath, Cough, Sputum Cardiovascular: Reports: Edema. Denies: Chest Pain Gastrointestinal: Reports: Constipation. Denies: Abdominal Pain, Nausea, Vomiting Genitourinary: Denies: Dysuria Musculoskeletal: Reports: Joint Pain (L ankle and top of foot) Neurological: Reports: No Symptoms Psychiatric: Reports: No Symptoms - Patient Data Vitals - Most Recent: Last Vital Signs Temp 97.1 F 06/16/17 04:00 Pulse 126 H 06/16/17 06:07 Resp 20 06/16/17 04:00 BP 148/59 H 06/16/17 06:07 Pulse Ox 94 L 06/16/17 04:00 Weight - Most Recent: 117.48 kg I&O - Last 24 Hours: Intake & Output 06/15/17 06/16/17 06/16/17 22:59 06:59 14:59 Intake Total 500 400 Output Total 700 1400 Balance -200 -1000 Lab Results Last 24 Hours: Laboratory Results - last 24 hr 06/16/17 06/16/17 Range/Units 04:54 04:54 WBC 19.39 H (4.0-11.0) K/uL RBC 3.48 L (4.30-5.90) M/uL Hgb 10.5 L (12.0-16.0) g/dL Hct 35.0 L (36.0-46.0) % MCV 100.6 H (80.0-98.0) fL MCH 30.2 (27.0-32.0) pg MCHC 30.0 L (31.0-37.0) g/dL RDW Std Deviation 62.5 H (28.0-62.0) fl RDW Coeff of Leia 17 H (11.0-15.0) % Plt Count 368 (150-400) K/uL MPV 12.40 H (7.40-12.00) fL Neut % (Auto) 80.3 H (48.0-80.0) % Lymph % (Auto) 8.1 L (16.0-40.0) % [place] % (Auto) 8.7 (0.0-15.0) % Eos % (Auto) 2.6 (0.0-7.0) % Baso % (Auto) 0.3 (0.0-1.5) % Neut # (Auto) 15.6 H (1.4-5.7) K/uL Lymph # (Auto) 1.6 (0.6-2.4) K/uL [place] # (Auto) 1.7 H (0.0-0.8) K/uL Eos # (Auto) 0.5 (0.0-0.7) K/uL Baso # (Auto) 0.1 (0.0-0.1) K/uL Nucleated RBC % 1.4 /100WBC Nucleated RBCs # 0 K/uL Sodium 145 (136-146) mmol/L Potassium 3.4 L (3.5-5.1) mmol/L Chloride 98 (98-110) mmol/L Carbon Dioxide 36 H (21-31) mmol/L BUN 47 H (6.0-23.0) mg/dL Creatinine 1.7 H (0.6-1.5) mg/dL Est Cr Clr Drug Dosing 31.37 mL/min Estimated GFR (MDRD) 30.9 ml/min Glucose 235 H (60-110) mg/dL Calcium 9.2 (8.8-10.8) mg/dL Yuriy Results Last 24 Hours: Microbiology 06/12/17 08:40 Aerobic Blood Culture - Preliminary Blood - Venous NO GROWTH AFTER 3 DAYS Anaerobic Blood Culture - Preliminary NO GROWTH AFTER 3 DAYS 06/12/17 08:27 Aerobic Blood Culture - Preliminary Blood - Venous NO GROWTH AFTER 3 DAYS Anaerobic Blood Culture - Preliminary NO GROWTH AFTER 3 DAYS Med Orders - Current: Current Medications Acetaminophen (Tylenol) 650 mg PO Q4H PRN PRN Reason: Pain (Mild 1-3)/fever Last Admin: 06/16/17 07:14 Dose: 650 mg Albuterol/Ipratropium (Duoneb 3.0-0.5 Mg/3 Ml) 3 ml NEB Q4HRRT PRN PRN Reason: SOB/wheezing Albuterol/Ipratropium (Duoneb 3.0-0.5 Mg/3 Ml) 3 ml NEB TID@1000,1400,2200 [facility] Last Admin: 06/15/17 21:42 Dose: 3 ml Ascorbic Acid (Vitamin C) 1,000 mg PO DAILY [facility] Last Admin: 06/15/17 08:15 Dose: 1,000 mg Aspirin (Aspirin) 325 mg PO DAILY [facility] Last Admin: 06/15/17 08:14 Dose: 325 mg Atorvastatin Calcium (Lipitor) 40 mg PO BEDTIME [facility] Last Admin: 06/15/17 20:21 Dose: 40 mg Bisacodyl (Dulcolax) 5 mg PO DAILY PRN PRN Reason: Constipation Clonidine HCl (Catapres-Tts 3) 0.3 mg TRDERM Q7D [facility] Diltiazem HCl (Cardizem Cd) 120 mg PO BID [facility] Last Admin: 06/15/17 20:20 Dose: 120 mg Fentanyl (Duragesic) 25 mcg TRDERM Q72H [facility] Last Admin: 06/14/17 09:40 Dose: 25 mcg Ferrous Sulfate (Ferrous Sulfate) 325 mg PO DAILY [facility] Last Admin: 06/15/17 08:15 Dose: 325 mg Furosemide (Lasix) 40 mg IVPUSH TID [facility] Last Admin: 06/16/17 06:07 Dose: 40 mg Glimepiride (Amaryl) 2 mg PO WITHBREAKFAST [facility] Last Admin: 06/15/17 08:14 Dose: 2 mg Cefepime HCl 2 gm/ Premix 50 mls @ 100 mls/hr IV Q12H [facility] Last Admin: 06/15/17 20:23 Dose: 100 mls/hr Insulin Aspart (Novolog) 0 unit SUBCUT ACBED [facility] PRN Reason: Protocol Last Admin: 06/16/17 07:29 Dose: 4 units Insulin Glargine (Lantus Solostar) 22 units SUBCUT BEDTIME [facility] Last Admin: 06/15/17 20:20 Dose: 22 units Levothyroxine Sodium (Synthroid) 50 mcg PO SuTuThSa@0730 [facility] Last Admin: 06/16/17 07:30 Dose: 50 mcg Levothyroxine Sodium (Levothyroxine) 75 mcg PO MoWeFr@0730 [facility] Last Admin: 06/15/17 06:51 Dose: 75 mcg Metoprolol Tartrate (Lopressor) 75 mg PO TID [facility] Last Admin: 06/16/17 06:07 Dose: 75 mg Metoprolol Tartrate (Lopressor) 5 mg IVPUSH Q2H PRN PRN Reason: Tachycardia Last Admin: 06/13/17 16:36 Dose: 5 mg Mirtazapine (Remeron) 45 mg PO BEDTIME [facility] Last Admin: 06/15/17 20:21 Dose: 45 mg Multivitamins/Minerals (Thera M Plus) 1 tab PO DAILY [facility] Last Admin: 06/15/17 08:14 Dose: 1 tab Mupirocin (Bactroban Crm) 1 gm TOP TID [facility] Last Admin: 06/16/17 06:02 Dose: 1 applic Ondansetron HCl (Zofran) 4 mg IVPUSH Q4H PRN PRN Reason: Nausea Last Admin: 06/14/17 10:32 Dose: 4 mg Paroxetine HCl (Paxil) 40 mg PO DAILY [facility] Last Admin: 06/15/17 08:15 Dose: 40 mg Dulaglutide [ (Trulicity]) 0 each SUBCUT Q7D [facility] Last Admin: 06/14/17 13:34 Dose: 1 each Breo Ellipta ( Fluticasone/Vilanterol) 1 each INH DAILY [facility] Last Admin: 06/15/17 12:12 Dose: 1 each Polyethylene Glycol (Miralax) 17 gm PO DAILY PRN PRN Reason: Constipation Last Admin: 06/12/17 18:20 Dose: 17 gm Prednisone (Prednisone) 10 mg PO DAILY [facility] Last Admin: 06/15/17 08:16 Dose: 10 mg Rivaroxaban (Xarelto) 15 mg PO DAILY [facility] Last Admin: 06/15/17 08:14 Dose: 15 mg Sodium Chloride (Saline Flush) 10 ml FLUSH ASDIRECTED PRN PRN Reason: Keep Vein Open Sodium Chloride (Saline Flush) 2.5 ml FLUSH ASDIRECTED PRN PRN Reason: Keep Vein Open Temazepam (Restoril) 15 mg PO BEDTIME [facility] Last Admin: 06/15/17 20:22 Dose: 15 mg Wound Care/Dressing Products (Duoderm Cgf) 1 each TOP Q72H [facility] Last Admin: 06/15/17 12:57 Dose: 1 each Discontinued Medications Albuterol/Ipratropium (Duoneb 3.0-0.5 Mg/3 Ml) 3 ml NEB Q4H [facility] Last Admin: 06/12/17 15:46 Dose: Not Given Clonidine HCl (Catapres-Tts 1) 0.3 mg TRDERM ASDIRECTED [facility] Diltiazem HCl (Diltiazem) 20 mg IVPUSH ONETIME ONE Stop: 06/12/17 06:21 Last Admin: 06/12/17 08:15 Dose: 20 mg Diltiazem HCl (Cardizem Cd) 180 mg PO DAILY [facility] Last Admin: 06/14/17 09:11 Dose: 180 mg Diltiazem HCl (Diltiazem) 10 mg IVPUSH ONETIME ONE Stop: 06/12/17 19:05 Last Admin: 06/12/17 19:21 Dose: 15 mg Diltiazem HCl (Diltiazem) 10 mg IVPUSH ONETIME ONE Stop: 06/12/17 19:52 Last Admin: 06/12/17 20:19 Dose: 10 mg Diltiazem HCl (Cardizem Cd) 120 mg PO DAILY [facility] Fentanyl (Duragesic) 25 mcg TRDERM Q72H [facility] Last Admin: 06/12/17 15:46 Dose: Not Given Furosemide (Lasix) 40 mg IVPUSH NOW ONE Stop: 06/12/17 05:56 Last Admin: 06/12/17 08:47 Dose: 40 mg Furosemide (Lasix) Confirm Administered Dose 40 mg .ROUTE .STK-MED ONE Stop: 06/12/17 08:34 Last Admin: 06/12/17 08:44 Dose: Not Given Furosemide (Lasix) 40 mg PO DAILY [facility] Last Admin: 06/13/17 08:06 Dose: 40 mg Furosemide (Lasix) 40 mg IVPUSH NOW ONE Stop: 06/13/17 14:25 Last Admin: 06/13/17 14:52 Dose: 40 mg Furosemide (Lasix) 40 mg IVPUSH NOW ONE Stop: 06/14/17 08:07 Last Admin: 06/14/17 08:44 Dose: 40 mg Furosemide (Lasix) 40 mg IVPUSH BIDDIURETIC [facility] Last Admin: 06/15/17 08:13 Dose: 40 mg Glimepiride (Glimepiride) 2 mg PO WITHBREAKFAST [facility] Last Admin: 06/12/17 15:47 Dose: Not Given Sodium Chloride (Normal Saline) 1,000 mls @ 30 mls/hr IV STAT [facility] Last Admin: 06/12/17 08:40 Dose: 30 mls/hr Lidocaine HCl (Xylocaine-Mpf 1%) Confirm Administered Dose 4 mls @ as directed .ROUTE .STK-MED ONE Stop: 06/12/17 06:47 Last Admin: 06/12/17 07:55 Dose: Not Given Levofloxacin/Dextrose 750 mg/ (Premix) 150 mls @ 100 mls/hr IV ONETIME ONE Stop: 06/12/17 09:55 Last Admin: 06/12/17 08:50 Dose: 100 mls/hr Levofloxacin/Dextrose 750 mg/ (Premix) 150 mls @ 100 mls/hr IV Q24H [facility] Last Admin: 06/13/17 08:07 Dose: 100 mls/hr Vancomycin HCl 1,750 mg/ (Sodium Chloride) 500 mls @ 250 mls/hr IV Q24H [facility] Last Admin: 06/14/17 11:54 Dose: 250 mls/hr Levofloxacin/Dextrose 750 mg/ (Premix) 150 mls @ 100 mls/hr IV Q48H [facility] Magnesium Sulfate 2 gm/ Premix 50 mls @ 50 mls/hr IV ONETIME ONE Stop: 06/13/17 14:00 Last Admin: 06/13/17 14:51 Dose: 50 mls/hr Magnesium Sulfate 2 gm/ Premix 50 mls @ 50 mls/hr IV ONETIME ONE Stop: 06/14/17 09:12 Last Admin: 06/14/17 08:35 Dose: 50 mls/hr Levothyroxine Sodium (Levothyroxine) 75 mcg PO MoWeFr@0730 [facility] Levothyroxine Sodium (Synthroid) 50 mcg PO ASDIRECTED [facility] Lidocaine HCl (Xylocaine 1%) 20 ml INJECT ONETIME ONE Stop: 06/12/17 07:52 Last Admin: 06/12/17 07:54 Dose: 20 ml Lidocaine HCl (Xylocaine 1%) Confirm Administered Dose 20 ml .ROUTE .STK-MED ONE Stop: 06/12/17 07:54 Last Admin: 06/12/17 08:24 Dose: Not Given Lidocaine/Epinephrine (Xylocaine 1% With Epinephrine 1:100,000) Confirm Administered Dose 20 ml .ROUTE .STK-MED ONE Stop: 06/12/17 07:53 Last Admin: 06/12/17 08:23 Dose: Not Given Methylprednisolone Sodium Succinate (Solu-Medrol) 125 mg IVPUSH ONETIME ONE Stop: 06/12/17 05:56 Last Admin: 06/12/17 08:44 Dose: 125 mg Methylprednisolone Sodium Succinate (Solu-Medrol) Confirm Administered Dose 125 mg .ROUTE .STK-MED ONE Stop: 06/12/17 08:34 Last Admin: 06/12/17 08:44 Dose: Not Given Metoprolol Tartrate (Lopressor) 5 mg IVPUSH ONETIME ONE Stop: 06/12/17 14:23 Last Admin: 06/12/17 14:35 Dose: 5 mg Potassium Chloride (Klor-Con M20) 40 meq PO ONETIME ONE Stop: 06/12/17 11:13 Last Admin: 06/12/17 11:41 Dose: 40 meq Potassium Chloride (Klor-Con M20) 40 meq PO ONETIME ONE Stop: 06/14/17 08:14 Last Admin: 06/14/17 08:37 Dose: 40 meq Vancomycin HCl (Pharmacy To Dose - Vancomycin) 1 dose .XX ASDIRECTED [facility] - Exam Quality Assessment: Supplemental Oxygen, Urine Catheter, DVT Prophylaxis General: Alert, Oriented, Cooperative, No Acute Distress Lungs: Clear to Auscultation, Normal Respiratory Effort Cardiovascular: Regular Rate, No Murmurs, Irregular Rhythm GI/Abdominal Exam: Normal Bowel Sounds, Soft, Non-Tender, No Organomegaly, No Distention, No Abnormal Bruit, No Mass, Pelvis Stable Extremities: Normal Capillary Refill, Pedal Edema (+3 pitting edema to BLE continues. with Moderate anasarca continuing). No: Normal Range of Motion ( decreased dorsiflexion to L ankle, with pain. No erythema/ecchymosis noted, tenderness to palpation. ) Skin: Ecchymosis (scant bruising around previous femoral central line site, no tenderness or erythema noted here) Wound/Incisions: Other (open area to top of R foot, no changes, no worsening erythema or drainage. Patient reports it is looking much better than it was previously. Abrasion to top of L foot, healed almost completely. ) Neurological: No New Focal Deficit, Normal Speech Psy/Mental Status: Alert, Normal Affect, Normal Mood - Problem List & Annotations (1) Anasarca SNOMED Code(s): 409465462 Code(s): R60.1 - GENERALIZED EDEMA Status: Chronic Priority: High Current Visit: No (2) Atrial fibrillation with rapid ventricular response SNOMED Code(s): 402013517757219 Code(s): I48.91 - UNSPECIFIED ATRIAL FIBRILLATION Status: Acute Current Visit: Yes (3) Dyspnea SNOMED Code(s): 857546361 Code(s): R06.00 - DYSPNEA, UNSPECIFIED Status: Acute Current Visit: Yes Qualifiers: Dyspnea type: shortness of breath Qualified Code(s): R06.02 - Shortness of breath; R06.00 - Dyspnea, unspecified; R06.01 - Orthopnea (4) Hypoxemia SNOMED Code(s): 238936338 Code(s): R09.02 - HYPOXEMIA Status: Acute Current Visit: Yes (5) HTN (hypertension) SNOMED Code(s): 18379337 Code(s): I10 - ESSENTIAL (PRIMARY) HYPERTENSION Status: Acute Current Visit: No Qualifiers: Hypertension type: essential hypertension Qualified Code(s): I10 - Essential (primary) hypertension (6) Polymyalgia rheumatica syndrome SNOMED Code(s): 42930407 Code(s): M35.3 - POLYMYALGIA RHEUMATICA Status: Chronic Current Visit: No (7) Renal insufficiency SNOMED Code(s): 506078602 Code(s): N28.9 - DISORDER OF KIDNEY AND URETER, UNSPECIFIED Status: Chronic Current Visit: No (8) Asplenia SNOMED Code(s): 954038126 Code(s): Q89.01 - ASPLENIA (CONGENITAL) Status: Chronic Current Visit: No Annotation/Comment:: Splenectomy 2009 (9) DM type 2 (diabetes mellitus, type 2) SNOMED Code(s): 91025518 Code(s): E11.9 - TYPE 2 DIABETES MELLITUS WITHOUT COMPLICATIONS Status: Chronic Priority: High Current Visit: No Qualifiers: Diabetes mellitus complication status: with neurologic complications Diabetes mellitus complication detail: with other neurological complication Diabetes mellitus bed bug 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 insulin use: with bed bug 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 use Qualified Code(s) : E11.49 - Type 2 diabetes mellitus with other diabetic neurological complication; Z79.4 - penitentiary (current) use of insulin (10) History of CVA (cerebrovascular accident) SNOMED Code(s): 964265988 Code(s): Z86.73 - PRSNL HX OF TIA (TIA), AND CEREB INFRC W/O RESID DEFICITS Status: Chronic Current Visit: No (11) Hypothyroidism SNOMED Code(s): 55948428 Code(s): E03.9 - HYPOTHYROIDISM, UNSPECIFIED Status: Chronic Current Visit: No Qualifiers: Hypothyroidism type: unspecified Qualified Code(s): E03.9 - Hypothyroidism , unspecified (12) Morbid obesity SNOMED Code(s): 729769473 Code(s): E66.01 - MORBID (SEVERE) OBESITY DUE TO EXCESS CALORIES Status: Chronic Priority: High Current Visit: No (13) Wheelchair bound SNOMED Code(s): 257817472 Code(s): Z99.3 - DEPENDENCE ON WHEELCHAIR Status: Chronic Current Visit: Yes (14) CHF (congestive heart failure) SNOMED Code(s): 51603700 Code(s): I50.9 - HEART FAILURE, UNSPECIFIED Status: Acute Current Visit: Yes Qualifiers: Congestive heart failure type: systolic - Problem List Review Problem List Initiated/Reviewed/Updated: Yes - My Orders Last 24 Hours: My Active Orders 06/15/17 14:00 Furosemide [Lasix] 40 mg IVPUSH TID 06/16/17 04:54 MAGNESIUM [CHEM] Routine 06/17/17 05:00 BASIC METABOLIC PANEL,BMP [CHEM] DAILY CBC WITH AUTO DIFF [HEME] DAILY MAGNESIUM [CHEM] DAILY 06/18/17 05:00 BASIC METABOLIC PANEL,BMP [CHEM] DAILY CBC WITH AUTO DIFF [HEME] DAILY MAGNESIUM [CHEM] DAILY 06/19/17 05:00 BASIC METABOLIC PANEL,BMP [CHEM] DAILY CBC WITH AUTO DIFF [HEME] DAILY MAGNESIUM [CHEM] DAILY 06/20/17 05:00 BASIC METABOLIC PANEL,BMP [CHEM] DAILY CBC WITH AUTO DIFF [HEME] DAILY MAGNESIUM [CHEM] DAILY - Plan Plan:: This 56 year old female admitted for health care associated pneumonia, covering for possible gram negative infection, dyspnea, and hypoxemia 1. Health care associated pneumonia: Continue Cefepime. Leukocytosis elevated to 19,000. Afebrile, no complaints of dyspnea, will monitor closely. 2. UTI: E coli grew out on UC, resistant to Levaquin and Bactrim. Continue Cefepime. 3. A fb RVR: Improved Continue on Metoprolol 75 TID and Diltiazem to 120mg BID. Continue Xarelto for chronic anticoagulation. 4. CHF: Moderate anasarca continues with little improvement. Lasix 40 mg IV to TID. I/O -2100 in last 24 hours. Daily weights has gained 2 kg since admission, down 1 kg from yesterday. strict I/O and 2 L FR and low sodium diet. Keep munoz in place for accurate I/O 5. CKD: Monitoring with IV Lasix administration. Stable today. BUN 47 and Cr 1.7 today. 6. HTN: stable. Continue Clonidine patch. 7. COPD: remains stable, no wheezing. Continue Breo, Duonebs and Proair. Oxygen dependent at 4 L NC continuously. 8. DM type 2: Stable. Continue Amaryl, Lantus, and add Novolog SSI. Hold Metformin for now. Monitor. 9. CAD: Stable, Continue Lipitor. 10. Hx polymyalgia rheumatica: Prednisone 10 mg daily. 11. L ankle pain: Xray pending. No trauma or injury noted. Reports "It has hurt for years, but today its worse." Tylenol has helped with pain, but movement worsens. VTE prophylaxis: Xarelto Dispo: 2-3 days pending improvement
[2017-06-16] MEDS: Cefepime 2 GM in Premix Bag 1 BAG IV SCH ×2 (08:30→21:04)
[2017-06-16] MEDS: PARoxetine 20 MG Tab PO SCH (08:37)
[2017-06-16] MEDS: Glimepiride 2 MG Tab PO SCH (08:37)
[2017-06-16] MEDS: Ascorbic Acid 500 MG Tab PO SCH (08:38)
[2017-06-16] MEDS: Rivaroxaban 15 MG Tab PO SCH (08:38)
[2017-06-16] MEDS: Aspirin 325 MG Tab PO SCH (08:38)
[2017-06-16] MEDS: Diltiazem 120 MG Cap.CD PO SCH ×2 (08:38→21:22)
[2017-06-16] MEDS: predniSONE 10 MG Tab PO SCH (08:41)
[2017-06-16] MEDS: Multivitamins with Iron/Calcium/Folic Acid/Minerals Tab PO SCH (08:41)
[2017-06-16] MEDS: Ferrous Sulfate 325 MG Tab PO SCH (08:41)
[2017-06-16] MEDS: Docusate Sodium 100 MG Cap PO SCH ×3 (09:00→21:02)
[2017-06-16] MEDS: Potassium Chloride 20 MEQ Tab.ER PO SCH ×2 (09:02→21:02)
--- NOTE | 2017-06-16 09:35 | PCM.PN ---
- General Info Date of Service: 06/15/17 Admission Dx/Problem (Free Text): CHF, HCAP, UTI Subjective Update: Patient felt improved, HR better controlled, now on lasix 40 TID, cardizem 120 BID, metoprolol 75 TID, xarelto 15 Functional Status: Reports: Pain Controlled - Review of Systems General: Reports: No Symptoms HEENT: Reports: No Symptoms Pulmonary: Reports: Shortness of Breath Cardiovascular: Reports: No Symptoms Gastrointestinal: Reports: No Symptoms Genitourinary: Reports: No Symptoms - Patient Data Vitals - Most Recent: Last Vital Signs Temp 36.6 C 06/16/17 07:43 Pulse 88 06/16/17 08:38 Resp 18 06/16/17 07:43 BP 106/70 06/16/17 08:38 Pulse Ox 94 L 06/16/17 04:00 Weight - Most Recent: 117.48 kg I&O - Last 24 Hours: Intake & Output 06/15/17 06/16/17 06/16/17 22:59 06:59 14:59 Intake Total 500 400 50 Output Total 700 1400 Balance -200 -1000 50 Lab Results Last 24 Hours: Laboratory Results - last 24 hr 06/16/17 06/16/17 06/16/17 Range/Units 04:54 04:54 04:54 WBC 19.39 H (4.0-11.0) K/uL RBC 3.48 L (4.30-5.90) M/uL Hgb 10.5 L (12.0-16.0) g/dL Hct 35.0 L (36.0-46.0) % MCV 100.6 H (80.0-98.0) fL MCH 30.2 (27.0-32.0) pg MCHC 30.0 L (31.0-37.0) g/dL RDW Std Deviation 62.5 H (28.0-62.0) fl RDW Coeff of Leia 17 H (11.0-15.0) % Plt Count 368 (150-400) K/uL MPV 12.40 H (7.40-12.00) fL Neut % (Auto) 80.3 H (48.0-80.0) % Lymph % (Auto) 8.1 L (16.0-40.0) % [place] % (Auto) 8.7 (0.0-15.0) % Eos % (Auto) 2.6 (0.0-7.0) % Baso % (Auto) 0.3 (0.0-1.5) % Neut # (Auto) 15.6 H (1.4-5.7) K/uL Lymph # (Auto) 1.6 (0.6-2.4) K/uL [place] # (Auto) 1.7 H (0.0-0.8) K/uL Eos # (Auto) 0.5 (0.0-0.7) K/uL Baso # (Auto) 0.1 (0.0-0.1) K/uL Nucleated RBC % 1.4 /100WBC Nucleated RBCs # 0 K/uL Sodium 145 (136-146) mmol/L Potassium 3.4 L (3.5-5.1) mmol/L Chloride 98 (98-110) mmol/L Carbon Dioxide 36 H (21-31) mmol/L BUN 47 H (6.0-23.0) mg/dL Creatinine 1.7 H (0.6-1.5) mg/dL Est Cr Clr Drug Dosing 31.37 mL/min Estimated GFR (MDRD) 30.9 ml/min Glucose 235 H (60-110) mg/dL Calcium 9.2 (8.8-10.8) mg/dL Magnesium 1.7 (1.5-2.3) mEq/L Yuriy Results Last 24 Hours: Microbiology 06/12/17 08:40 Aerobic Blood Culture - Preliminary Blood - Venous NO GROWTH AFTER 4 DAYS Anaerobic Blood Culture - Preliminary NO GROWTH AFTER 4 DAYS 06/12/17 08:27 Aerobic Blood Culture - Preliminary Blood - Venous NO GROWTH AFTER 4 DAYS Anaerobic Blood Culture - Preliminary NO GROWTH AFTER 4 DAYS Med Orders - Current: Current Medications Acetaminophen (Tylenol) 650 mg PO Q4H PRN PRN Reason: Pain (Mild 1-3)/fever Last Admin: 06/16/17 07:14 Dose: 650 mg Albuterol/Ipratropium (Duoneb 3.0-0.5 Mg/3 Ml) 3 ml NEB Q4HRRT PRN PRN Reason: SOB/wheezing Albuterol/Ipratropium (Duoneb 3.0-0.5 Mg/3 Ml) 3 ml NEB TID@1000,1400,2200 [facility] Last Admin: 06/15/17 21:42 Dose: 3 ml Ascorbic Acid (Vitamin C) 1,000 mg PO DAILY [facility] Last Admin: 06/16/17 08:38 Dose: 1,000 mg Aspirin (Aspirin) 325 mg PO DAILY [facility] Last Admin: 06/16/17 08:38 Dose: 325 mg Atorvastatin Calcium (Lipitor) 40 mg PO BEDTIME [facility] Last Admin: 06/15/17 20:21 Dose: 40 mg Bisacodyl (Dulcolax) 5 mg PO DAILY PRN PRN Reason: Constipation Clonidine HCl (Catapres-Tts 3) 0.3 mg TRDERM Q7D [facility] Diltiazem HCl (Cardizem Cd) 120 mg PO BID [facility] Last Admin: 06/16/17 08:38 Dose: 120 mg Docusate Sodium (Colace) 100 mg PO BID [facility] Last Admin: 06/16/17 09:02 Dose: 100 mg Fentanyl (Duragesic) 25 mcg TRDERM Q72H [facility] Last Admin: 06/14/17 09:40 Dose: 25 mcg Ferrous Sulfate (Ferrous Sulfate) 325 mg PO DAILY [facility] Last Admin: 06/16/17 08:41 Dose: 325 mg Furosemide (Lasix) 40 mg IVPUSH TID [facility] Last Admin: 06/16/17 06:07 Dose: 40 mg Glimepiride (Amaryl) 2 mg PO WITHBREAKFAST [facility] Last Admin: 06/16/17 08:37 Dose: 2 mg Cefepime HCl 2 gm/ Premix 50 mls @ 100 mls/hr IV Q12H [facility] Last Admin: 06/16/17 08:30 Dose: 100 mls/hr Insulin Aspart (Novolog) 0 unit SUBCUT ACBED [facility] PRN Reason: Protocol Last Admin: 06/16/17 07:29 Dose: 4 units Insulin Glargine (Lantus Solostar) 22 units SUBCUT BEDTIME [facility] Last Admin: 06/15/17 20:20 Dose: 22 units Levothyroxine Sodium (Synthroid) 50 mcg PO [id number] [facility] Last Admin: 06/16/17 07:30 Dose: 50 mcg Levothyroxine Sodium (Levothyroxine) 75 mcg PO [id number] [facility] Last Admin: 06/15/17 06:51 Dose: 75 mcg Metoprolol Tartrate (Lopressor) 75 mg PO TID [facility] Last Admin: 06/16/17 06:07 Dose: 75 mg Metoprolol Tartrate (Lopressor) 5 mg IVPUSH Q2H PRN PRN Reason: Tachycardia Last Admin: 06/13/17 16:36 Dose: 5 mg Mirtazapine (Remeron) 45 mg PO BEDTIME [facility] Last Admin: 06/15/17 20:21 Dose: 45 mg Multivitamins/Minerals (Thera M Plus) 1 tab PO DAILY [facility] Last Admin: 06/16/17 08:41 Dose: 1 tab Mupirocin (Bactroban Crm) 1 gm TOP TID [facility] Last Admin: 06/16/17 06:02 Dose: 1 applic Ondansetron HCl (Zofran) 4 mg IVPUSH Q4H PRN PRN Reason: Nausea Last Admin: 06/14/17 10:32 Dose: 4 mg Paroxetine HCl (Paxil) 40 mg PO DAILY [facility] Last Admin: 06/16/17 08:37 Dose: 40 mg Dulaglutide [ (Trulicity]) 0 each SUBCUT Q7D [facility] Last Admin: 06/14/17 13:34 Dose: 1 each Breo Ellipta ( Fluticasone/Vilanterol) 1 each INH DAILY [facility] Last Admin: 06/15/17 12:12 Dose: 1 each Polyethylene Glycol (Miralax) 17 gm PO DAILY PRN PRN Reason: Constipation Last Admin: 06/12/17 18:20 Dose: 17 gm Potassium Chloride (Klor-Con M20) 40 meq PO BID [facility] Last Admin: 06/16/17 09:02 Dose: 40 meq Prednisone (Prednisone) 10 mg PO DAILY [facility] Last Admin: 06/16/17 08:41 Dose: 10 mg Rivaroxaban (Xarelto) 15 mg PO DAILY [facility] Last Admin: 06/16/17 08:38 Dose: 15 mg Sodium Chloride (Saline Flush) 10 ml FLUSH ASDIRECTED PRN PRN Reason: Keep Vein Open Sodium Chloride (Saline Flush) 2.5 ml FLUSH ASDIRECTED PRN PRN Reason: Keep Vein Open Temazepam (Restoril) 15 mg PO BEDTIME [facility] Last Admin: 06/15/17 20:22 Dose: 15 mg Wound Care/Dressing Products (Duoderm Cgf) 1 each TOP Q72H [facility] Last Admin: 06/15/17 12:57 Dose: 1 each Discontinued Medications Albuterol/Ipratropium (Duoneb 3.0-0.5 Mg/3 Ml) 3 ml NEB Q4H [facility] Last Admin: 06/12/17 15:46 Dose: Not Given Clonidine HCl (Catapres-Tts 1) 0.3 mg TRDERM ASDIRECTED [facility] Diltiazem HCl (Diltiazem) 20 mg IVPUSH ONETIME ONE Stop: 06/12/17 06:21 Last Admin: 06/12/17 08:15 Dose: 20 mg Diltiazem HCl (Cardizem Cd) 180 mg PO DAILY [facility] Last Admin: 06/14/17 09:11 Dose: 180 mg Diltiazem HCl (Diltiazem) 10 mg IVPUSH ONETIME ONE Stop: 06/12/17 19:05 Last Admin: 06/12/17 19:21 Dose: 15 mg Diltiazem HCl (Diltiazem) 10 mg IVPUSH ONETIME ONE Stop: 06/12/17 19:52 Last Admin: 06/12/17 20:19 Dose: 10 mg Diltiazem HCl (Cardizem Cd) 120 mg PO DAILY [facility] Fentanyl (Duragesic) 25 mcg TRDERM Q72H [facility] Last Admin: 06/12/17 15:46 Dose: Not Given Furosemide (Lasix) 40 mg IVPUSH NOW ONE Stop: 06/12/17 05:56 Last Admin: 06/12/17 08:47 Dose: 40 mg Furosemide (Lasix) Confirm Administered Dose 40 mg .ROUTE .STK-MED ONE Stop: 06/12/17 08:34 Last Admin: 06/12/17 08:44 Dose: Not Given Furosemide (Lasix) 40 mg PO DAILY [facility] Last Admin: 06/13/17 08:06 Dose: 40 mg Furosemide (Lasix) 40 mg IVPUSH NOW ONE Stop: 06/13/17 14:25 Last Admin: 06/13/17 14:52 Dose: 40 mg Furosemide (Lasix) 40 mg IVPUSH NOW ONE Stop: 06/14/17 08:07 Last Admin: 06/14/17 08:44 Dose: 40 mg Furosemide (Lasix) 40 mg IVPUSH BIDDIURETIC [facility] Last Admin: 06/15/17 08:13 Dose: 40 mg Glimepiride (Glimepiride) 2 mg PO WITHBREAKFAST [facility] Last Admin: 06/12/17 15:47 Dose: Not Given Sodium Chloride (Normal Saline) 1,000 mls @ 30 mls/hr IV STAT [facility] Last Admin: 06/12/17 08:40 Dose: 30 mls/hr Lidocaine HCl (Xylocaine-Mpf 1%) Confirm Administered Dose 4 mls @ as directed .ROUTE .STK-MED ONE Stop: 06/12/17 06:47 Last Admin: 06/12/17 07:55 Dose: Not Given Levofloxacin/Dextrose 750 mg/ (Premix) 150 mls @ 100 mls/hr IV ONETIME ONE Stop: 06/12/17 09:55 Last Admin: 06/12/17 08:50 Dose: 100 mls/hr Levofloxacin/Dextrose 750 mg/ (Premix) 150 mls @ 100 mls/hr IV Q24H [facility] Last Admin: 06/13/17 08:07 Dose: 100 mls/hr Vancomycin HCl 1,750 mg/ (Sodium Chloride) 500 mls @ 250 mls/hr IV Q24H [facility] Last Admin: 06/14/17 11:54 Dose: 250 mls/hr Levofloxacin/Dextrose 750 mg/ (Premix) 150 mls @ 100 mls/hr IV Q48H [facility] Magnesium Sulfate 2 gm/ Premix 50 mls @ 50 mls/hr IV ONETIME ONE Stop: 06/13/17 14:00 Last Admin: 06/13/17 14:51 Dose: 50 mls/hr Magnesium Sulfate 2 gm/ Premix 50 mls @ 50 mls/hr IV ONETIME ONE Stop: 06/14/17 09:12 Last Admin: 06/14/17 08:35 Dose: 50 mls/hr Levothyroxine Sodium (Levothyroxine) 75 mcg PO [id number]@0730 [facility] Levothyroxine Sodium (Synthroid) 50 mcg PO ASDIRECTED [facility] Lidocaine HCl (Xylocaine 1%) 20 ml INJECT ONETIME ONE Stop: 06/12/17 07:52 Last Admin: 06/12/17 07:54 Dose: 20 ml Lidocaine HCl (Xylocaine 1%) Confirm Administered Dose 20 ml .ROUTE .STK-MED ONE Stop: 06/12/17 07:54 Last Admin: 06/12/17 08:24 Dose: Not Given Lidocaine/Epinephrine (Xylocaine 1% With Epinephrine 1:100,000) Confirm Administered Dose 20 ml .ROUTE .STK-MED ONE Stop: 06/12/17 07:53 Last Admin: 06/12/17 08:23 Dose: Not Given Methylprednisolone Sodium Succinate (Solu-Medrol) 125 mg IVPUSH ONETIME ONE Stop: 06/12/17 05:56 Last Admin: 06/12/17 08:44 Dose: 125 mg Methylprednisolone Sodium Succinate (Solu-Medrol) Confirm Administered Dose 125 mg .ROUTE .STK-MED ONE Stop: 06/12/17 08:34 Last Admin: 06/12/17 08:44 Dose: Not Given Metoprolol Tartrate (Lopressor) 5 mg IVPUSH ONETIME ONE Stop: 06/12/17 14:23 Last Admin: 06/12/17 14:35 Dose: 5 mg Potassium Chloride (Klor-Con M20) 40 meq PO ONETIME ONE Stop: 06/12/17 11:13 Last Admin: 06/12/17 11:41 Dose: 40 meq Potassium Chloride (Klor-Con M20) 40 meq PO ONETIME ONE Stop: 06/14/17 08:14 Last Admin: 06/14/17 08:37 Dose: 40 meq Vancomycin HCl (Pharmacy To Dose - Vancomycin) 1 dose .XX ASDIRECTED ADRIAN - Exam Quality Assessment: Supplemental Oxygen General: Alert, Oriented HEENT: Pupils Equal Neck: Supple Lungs: Rales Cardiovascular: Irregular Rhythm GI/Abdominal Exam: Normal Bowel Sounds (Female) Exam: Normal External Exam Extremities: Pedal Edema EKG INTERPRETATION Rhythm: A-Fib - Problem List Review Problem List Initiated/Reviewed/Updated: Yes - Plan Plan:: This 56 year old female admitted for health care associated pneumonia, covering for possible gram negative infection, dyspnea, and hypoxemia 1. HCAP on IV Abx per hospitalist 2. Persistent afib RVR now HR 90-100, continue cardizem to 120 BID, continue metoprolol 75 TID, xarelto 15 daily 3. HF EF 45-50% continue IV lasix for now, restrict fluid < 2L, watch for BMP 4. UTI abx per hospitalist
[2017-06-16] MEDS: BREO ELLIPTA INH SCH (09:48)
[2017-06-16] MEDS: Albuterol/Ipratropium 3.0-0.5 MG/3 ML Neb Soln NEB SCH ×3 (09:49→21:49)
--- NOTE | 2017-06-16 14:57 | CR ---
EXAMINATION: Left ankle HISTORY: Pain COMPARISON: 10/19/2016 TECHNIQUE: 3 views FINDINGS/IMPRESSION: There is moderate soft tissue swelling noted along the dorsal aspect of the foot and ankle without evidence of subcutaneous gas. The underlying osseous structures and joint spaces a ppear intact. Bone mineralization is otherwise normal.
[2017-06-16] MEDS: Metoprolol Tartrate 5 MG/5 ML SDV IVPUSH PRN (16:20)
[2017-06-16] MEDS ORDERED: Metoprolol Tartrate 25 MG Tab PO ONE (16:40)
--- NOTE | 2017-06-16 16:46 | PCM.PN ---
- General Info Date of Service: 06/16/17 Admission Dx/Problem (Free Text): 56F CVA CAD PCI persistent afib RVR PNA CHF UTI Functional Status: Reports: Pain Controlled - Review of Systems General: Reports: No Symptoms HEENT: Reports: No Symptoms Pulmonary: Reports: No Symptoms, Shortness of Breath Cardiovascular: Reports: No Symptoms Gastrointestinal: Reports: No Symptoms Genitourinary: Reports: No Symptoms - Patient Data Vitals - Most Recent: Last Vital Signs Temp 36.2 C 06/16/17 15:00 Pulse 130 H 06/16/17 16:20 Resp 20 06/16/17 15:00 BP 133/77 06/16/17 16:20 Pulse Ox 94 L 06/16/17 15:00 Weight - Most Recent: 117.48 kg I&O - Last 24 Hours: Intake & Output 06/16/17 06/16/17 06/16/17 06:59 14:59 22:59 Intake Total 400 50 Output Total 1400 Balance -1000 50 Lab Results Last 24 Hours: Laboratory Results - last 24 hr 06/15/17 06/15/17 06/15/17 Range/Units 06:13 11:25 16:24 WBC (4.0-11.0) K/uL RBC (4.30-5.90) M/uL Hgb (12.0-16.0) g/dL Hct (36.0-46.0) % MCV (80.0-98.0) fL MCH (27.0-32.0) pg MCHC (31.0-37.0) g/dL RDW Std Deviation (28.0-62.0) fl RDW Coeff of Leia (11.0-15.0) % Plt Count (150-400) K/uL MPV (7.40-12.00) fL Neut % (Auto) (48.0-80.0) % Lymph % (Auto) (16.0-40.0) % [place] % (Auto) (0.0-15.0) % Eos % (Auto) (0.0-7.0) % Baso % (Auto) (0.0-1.5) % Neut # (Auto) (1.4-5.7) K/uL Lymph # (Auto) (0.6-2.4) K/uL [place] # (Auto) (0.0-0.8) K/uL Eos # (Auto) (0.0-0.7) K/uL Baso # (Auto) (0.0-0.1) K/uL Nucleated RBC % /100WBC Nucleated RBCs # K/uL Sodium (136-146) mmol/L Potassium (3.5-5.1) mmol/L Chloride (98-110) mmol/L Carbon Dioxide (21-31) mmol/L BUN (6.0-23.0) mg/dL Creatinine (0.6-1.5) mg/dL Est Cr Clr Drug Dosing mL/min Estimated GFR (MDRD) ml/min Glucose (60-110) mg/dL POC Glucose 247 H 334 H 322 H (60-110) mg/dL Calcium (8.8-10.8) mg/dL Magnesium (1.5-2.3) mEq/L 06/15/17 06/16/17 06/16/17 Range/Units 20:16 04:54 04:54 WBC 19.39 H (4.0-11.0) K/uL RBC 3.48 L (4.30-5.90) M/uL Hgb 10.5 L (12.0-16.0) g/dL Hct 35.0 L (36.0-46.0) % MCV 100.6 H (80.0-98.0) fL MCH 30.2 (27.0-32.0) pg MCHC 30.0 L (31.0-37.0) g/dL RDW Std Deviation 62.5 H (28.0-62.0) fl RDW Coeff of Leia 17 H (11.0-15.0) % Plt Count 368 (150-400) K/uL MPV 12.40 H (7.40-12.00) fL Neut % (Auto) 80.3 H (48.0-80.0) % Lymph % (Auto) 8.1 L (16.0-40.0) % [place] % (Auto) 8.7 (0.0-15.0) % Eos % (Auto) 2.6 (0.0-7.0) % Baso % (Auto) 0.3 (0.0-1.5) % Neut # (Auto) 15.6 H (1.4-5.7) K/uL Lymph # (Auto) 1.6 (0.6-2.4) K/uL [place] # (Auto) 1.7 H (0.0-0.8) K/uL Eos # (Auto) 0.5 (0.0-0.7) K/uL Baso # (Auto) 0.1 (0.0-0.1) K/uL Nucleated RBC % 1.4 /100WBC Nucleated RBCs # 0 K/uL Sodium 145 (136-146) mmol/L Potassium 3.4 L (3.5-5.1) mmol/L Chloride 98 (98-110) mmol/L Carbon Dioxide 36 H (21-31) mmol/L BUN 47 H (6.0-23.0) mg/dL Creatinine 1.7 H (0.6-1.5) mg/dL Est Cr Clr Drug Dosing 31.37 mL/min Estimated GFR (MDRD) 30.9 ml/min Glucose 235 H (60-110) mg/dL POC Glucose 329 H (60-110) mg/dL Calcium 9.2 (8.8-10.8) mg/dL Magnesium (1.5-2.3) mEq/L 06/16/17 06/16/17 Range/Units 04:54 05:58 WBC (4.0-11.0) K/uL RBC (4.30-5.90) M/uL Hgb (12.0-16.0) g/dL Hct (36.0-46.0) % MCV (80.0-98.0) fL MCH (27.0-32.0) pg MCHC (31.0-37.0) g/dL RDW Std Deviation (28.0-62.0) fl RDW Coeff of Leia (11.0-15.0) % Plt Count (150-400) K/uL MPV (7.40-12.00) fL Neut % (Auto) (48.0-80.0) % Lymph % (Auto) (16.0-40.0) % [place] % (Auto) (0.0-15.0) % Eos % (Auto) (0.0-7.0) % Baso % (Auto) (0.0-1.5) % Neut # (Auto) (1.4-5.7) K/uL Lymph # (Auto) (0.6-2.4) K/uL [place] # (Auto) (0.0-0.8) K/uL Eos # (Auto) (0.0-0.7) K/uL Baso # (Auto) (0.0-0.1) K/uL Nucleated RBC % /100WBC Nucleated RBCs # K/uL Sodium (136-146) mmol/L Potassium (3.5-5.1) mmol/L Chloride (98-110) mmol/L Carbon Dioxide (21-31) mmol/L BUN (6.0-23.0) mg/dL Creatinine (0.6-1.5) mg/dL Est Cr Clr Drug Dosing mL/min Estimated GFR (MDRD) ml/min Glucose (60-110) mg/dL POC Glucose 203 H (60-110) mg/dL Calcium (8.8-10.8) mg/dL Magnesium 1.7 (1.5-2.3) mEq/L Yuriy Results Last 24 Hours: Microbiology 06/12/17 08:40 Aerobic Blood Culture - Preliminary Blood - Venous NO GROWTH AFTER 4 DAYS Anaerobic Blood Culture - Preliminary NO GROWTH AFTER 4 DAYS 06/12/17 08:27 Aerobic Blood Culture - Preliminary Blood - Venous NO GROWTH AFTER 4 DAYS Anaerobic Blood Culture - Preliminary NO GROWTH AFTER 4 DAYS Med Orders - Current: Current Medications Acetaminophen (Tylenol) 650 mg PO Q4H PRN PRN Reason: Pain (Mild 1-3)/fever Last Admin: 06/16/17 14:33 Dose: 650 mg Albuterol/Ipratropium (Duoneb 3.0-0.5 Mg/3 Ml) 3 ml NEB Q4HRRT PRN PRN Reason: SOB/wheezing Albuterol/Ipratropium (Duoneb 3.0-0.5 Mg/3 Ml) 3 ml NEB TID@1000,1400,2200 [facility] Last Admin: 06/16/17 14:26 Dose: 3 ml Ascorbic Acid (Vitamin C) 1,000 mg PO DAILY [facility] Last Admin: 06/16/17 08:38 Dose: 1,000 mg Aspirin (Aspirin) 325 mg PO DAILY [facility] Last Admin: 06/16/17 08:38 Dose: 325 mg Atorvastatin Calcium (Lipitor) 40 mg PO BEDTIME [facility] Last Admin: 06/15/17 20:21 Dose: 40 mg Bisacodyl (Dulcolax) 5 mg PO DAILY PRN PRN Reason: Constipation Clonidine HCl (Catapres-Tts 3) 0.3 mg TRDERM Q7D [facility] Diltiazem HCl (Cardizem Cd) 120 mg PO BID [facility] Last Admin: 06/16/17 08:38 Dose: 120 mg Docusate Sodium (Colace) 100 mg PO BID [facility] Last Admin: 06/16/17 09:02 Dose: 100 mg Fentanyl (Duragesic) 25 mcg TRDERM Q72H [facility] Last Admin: 06/14/17 09:40 Dose: 25 mcg Ferrous Sulfate (Ferrous Sulfate) 325 mg PO DAILY [facility] Last Admin: 06/16/17 08:41 Dose: 325 mg Furosemide (Lasix) 40 mg IVPUSH TID [facility] Last Admin: 06/16/17 14:35 Dose: 40 mg Glimepiride (Amaryl) 2 mg PO WITHBREAKFAST [facility] Last Admin: 06/16/17 08:37 Dose: 2 mg Cefepime HCl 2 gm/ Premix 50 mls @ 100 mls/hr IV Q12H [facility] Last Admin: 06/16/17 08:30 Dose: 100 mls/hr Insulin Aspart (Novolog) 0 unit SUBCUT ACBED [facility] PRN Reason: Protocol Last Admin: 06/16/17 13:50 Dose: 6 units Insulin Glargine (Lantus Solostar) 22 units SUBCUT BEDTIME [facility] Last Admin: 06/15/17 20:20 Dose: 22 units Levothyroxine Sodium (Synthroid) 50 mcg PO SuTuThSa@0730 [facility] Last Admin: 06/16/17 07:30 Dose: 50 mcg Levothyroxine Sodium (Levothyroxine) 75 mcg PO MoWeFr@0730 [facility] Last Admin: 06/15/17 06:51 Dose: 75 mcg Metoprolol Tartrate (Lopressor) 5 mg IVPUSH Q2H PRN PRN Reason: Tachycardia Last Admin: 06/16/17 16:20 Dose: 5 mg Metoprolol Tartrate (Lopressor) 100 mg PO TID [facility] Mirtazapine (Remeron) 45 mg PO BEDTIME [facility] Last Admin: 06/15/17 20:21 Dose: 45 mg Multivitamins/Minerals (Thera M Plus) 1 tab PO DAILY [facility] Last Admin: 06/16/17 08:41 Dose: 1 tab Mupirocin (Bactroban Crm) 1 gm TOP TID [facility] Last Admin: 06/16/17 13:59 Dose: 1 applic Ondansetron HCl (Zofran) 4 mg IVPUSH Q4H PRN PRN Reason: Nausea Last Admin: 06/14/17 10:32 Dose: 4 mg Paroxetine HCl (Paxil) 40 mg PO DAILY [facility] Last Admin: 06/16/17 08:37 Dose: 40 mg Dulaglutide [ (Trulicity]) 0 each SUBCUT Q7D [facility] Last Admin: 06/14/17 13:34 Dose: 1 each Breo Ellipta ( Fluticasone/Vilanterol) 1 each INH DAILY [facility] Last Admin: 06/16/17 09:48 Dose: 1 each Polyethylene Glycol (Miralax) 17 gm PO DAILY PRN PRN Reason: Constipation Last Admin: 06/12/17 18:20 Dose: 17 gm Potassium Chloride (Klor-Con M20) 40 meq PO BID [facility] Last Admin: 06/16/17 09:02 Dose: 40 meq Prednisone (Prednisone) 10 mg PO DAILY [facility] Last Admin: 06/16/17 08:41 Dose: 10 mg Rivaroxaban (Xarelto) 15 mg PO DAILY [facility] Last Admin: 06/16/17 08:38 Dose: 15 mg Sodium Chloride (Saline Flush) 10 ml FLUSH ASDIRECTED PRN PRN Reason: Keep Vein Open Sodium Chloride (Saline Flush) 2.5 ml FLUSH ASDIRECTED PRN PRN Reason: Keep Vein Open Temazepam (Restoril) 15 mg PO BEDTIME [facility] Last Admin: 06/15/17 20:22 Dose: 15 mg Wound Care/Dressing Products (Duoderm Cgf) 1 each TOP Q72H [facility] Last Admin: 06/15/17 12:57 Dose: 1 each Discontinued Medications Albuterol/Ipratropium (Duoneb 3.0-0.5 Mg/3 Ml) 3 ml NEB Q4H [facility] Last Admin: 06/12/17 15:46 Dose: Not Given Clonidine HCl (Catapres-Tts 1) 0.3 mg TRDERM ASDIRECTED [facility] Diltiazem HCl (Diltiazem) 20 mg IVPUSH ONETIME ONE Stop: 06/12/17 06:21 Last Admin: 06/12/17 08:15 Dose: 20 mg Diltiazem HCl (Cardizem Cd) 180 mg PO DAILY [facility] Last Admin: 06/14/17 09:11 Dose: 180 mg Diltiazem HCl (Diltiazem) 10 mg IVPUSH ONETIME ONE Stop: 06/12/17 19:05 Last Admin: 06/12/17 19:21 Dose: 15 mg Diltiazem HCl (Diltiazem) 10 mg IVPUSH ONETIME ONE Stop: 06/12/17 19:52 Last Admin: 06/12/17 20:19 Dose: 10 mg Diltiazem HCl (Cardizem Cd) 120 mg PO DAILY [facility] Fentanyl (Duragesic) 25 mcg TRDERM Q72H [facility] Last Admin: 06/12/17 15:46 Dose: Not Given Furosemide (Lasix) 40 mg IVPUSH NOW ONE Stop: 06/12/17 05:56 Last Admin: 06/12/17 08:47 Dose: 40 mg Furosemide (Lasix) Confirm Administered Dose 40 mg .ROUTE .STK-MED ONE Stop: 06/12/17 08:34 Last Admin: 06/12/17 08:44 Dose: Not Given Furosemide (Lasix) 40 mg PO DAILY [facility] Last Admin: 06/13/17 08:06 Dose: 40 mg Furosemide (Lasix) 40 mg IVPUSH NOW ONE Stop: 06/13/17 14:25 Last Admin: 06/13/17 14:52 Dose: 40 mg Furosemide (Lasix) 40 mg IVPUSH NOW ONE Stop: 06/14/17 08:07 Last Admin: 06/14/17 08:44 Dose: 40 mg Furosemide (Lasix) 40 mg IVPUSH BIDDIURETIC [facility]RIAN Last Admin: 06/15/17 08:13 Dose: 40 mg Glimepiride (Glimepiride) 2 mg PO WITHBREAKFAST [facility] Last Admin: 06/12/17 15:47 Dose: Not Given Sodium Chloride (Normal Saline) 1,000 mls @ 30 mls/hr IV STAT [facility] Last Admin: 06/12/17 08:40 Dose: 30 mls/hr Lidocaine HCl (Xylocaine-Mpf 1%) Confirm Administered Dose 4 mls @ as directed .ROUTE .STK-MED ONE Stop: 06/12/17 06:47 Last Admin: 06/12/17 07:55 Dose: Not Given Levofloxacin/Dextrose 750 mg/ (Premix) 150 mls @ 100 mls/hr IV ONETIME ONE Stop: 06/12/17 09:55 Last Admin: 06/12/17 08:50 Dose: 100 mls/hr Levofloxacin/Dextrose 750 mg/ (Premix) 150 mls @ 100 mls/hr IV Q24H [facility] Last Admin: 06/13/17 08:07 Dose: 100 mls/hr Vancomycin HCl 1,750 mg/ (Sodium Chloride) 500 mls @ 250 mls/hr IV Q24H [facility] Last Admin: 06/14/17 11:54 Dose: 250 mls/hr Levofloxacin/Dextrose 750 mg/ (Premix) 150 mls @ 100 mls/hr IV Q48H [facility] Magnesium Sulfate 2 gm/ Premix 50 mls @ 50 mls/hr IV ONETIME ONE Stop: 06/13/17 14:00 Last Admin: 06/13/17 14:51 Dose: 50 mls/hr Magnesium Sulfate 2 gm/ Premix 50 mls @ 50 mls/hr IV ONETIME ONE Stop: 06/14/17 09:12 Last Admin: 06/14/17 08:35 Dose: 50 mls/hr Levothyroxine Sodium (Levothyroxine) 75 mcg PO MoWeFr@0730 [facility] Levothyroxine Sodium (Synthroid) 50 mcg PO ASDIRECTED ADRIAN Lidocaine HCl (Xylocaine 1%) 20 ml INJECT ONETIME ONE Stop: 06/12/17 07:52 Last Admin: 06/12/17 07:54 Dose: 20 ml Lidocaine HCl (Xylocaine 1%) Confirm Administered Dose 20 ml .ROUTE .STK-MED ONE Stop: 06/12/17 07:54 Last Admin: 06/12/17 08:24 Dose: Not Given Lidocaine/Epinephrine (Xylocaine 1% With Epinephrine 1:100,000) Confirm Administered Dose 20 ml .ROUTE .STK-MED ONE Stop: 06/12/17 07:53 Last Admin: 06/12/17 08:23 Dose: Not Given Methylprednisolone Sodium Succinate (Solu-Medrol) 125 mg IVPUSH ONETIME ONE Stop: 06/12/17 05:56 Last Admin: 06/12/17 08:44 Dose: 125 mg Methylprednisolone Sodium Succinate (Solu-Medrol) Confirm Administered Dose 125 mg .ROUTE .STK-MED ONE Stop: 06/12/17 08:34 Last Admin: 06/12/17 08:44 Dose: Not Given Metoprolol Tartrate (Lopressor) 75 mg PO TID [facility] Last Admin: 06/16/17 14:40 Dose: 75 mg Metoprolol Tartrate (Lopressor) 5 mg IVPUSH ONETIME ONE Stop: 06/12/17 14:23 Last Admin: 06/12/17 14:35 Dose: 5 mg Metoprolol Tartrate (Lopressor) 25 mg PO ONETIME ONE Stop: 06/16/17 16:41 Potassium Chloride (Klor-Con M20) 40 meq PO ONETIME ONE Stop: 06/12/17 11:13 Last Admin: 06/12/17 11:41 Dose: 40 meq Potassium Chloride (Klor-Con M20) 40 meq PO ONETIME ONE Stop: 06/14/17 08:14 Last Admin: 06/14/17 08:37 Dose: 40 meq Vancomycin HCl (Pharmacy To Dose - Vancomycin) 1 dose .XX ASDIRECTED ADRIAN - Exam Quality Assessment: Supplemental Oxygen General: Alert, Oriented HEENT: Pupils Equal, Pupils Reactive Neck: Supple Lungs: Rales, Rhonchi Cardiovascular: Irregular Rhythm Extremities: Pedal Edema EKG INTERPRETATION Rhythm: A-Fib - Problem List Review Problem List Initiated/Reviewed/Updated: Yes - My Orders Last 24 Hours: My Active Orders 06/16/17 22:00 Metoprolol Tartrate [Lopressor] 100 mg PO TID - Plan Plan:: This 56 year old female admitted for health care associated pneumonia, covering for possible gram negative infection, dyspnea, and hypoxemia 1. HCAP on IV Abx per hospitalist 2. Persistent afib RVR now [id number], continue cardizem to 120 BID, increase meotpolol 100 TID, xarelto 15 daily 3. HF EF 45-50% continue IV lasix for now, restrict fluid < 2L, watch for BMP 4. UTI abx per hospitalist
[2017-06-16] MEDS: Insulin Glargine,Human Rec. Analog 100 Units/ML 3 ML Pen SUBCUT SCH (21:03)
[2017-06-16] MEDS: Mirtazapine 15 MG Tab PO SCH (21:03)
[2017-06-16] MEDS: Temazepam 15 MG Cap PO SCH (21:03)
[2017-06-16] MEDS: atorvaSTATin 40 MG Tab PO SCH (21:04)
[2017-06-17] MEDS: Furosemide 40 MG/4 ML VIAL IVPUSH SCH (05:27)
[2017-06-17] MEDS: Metoprolol Tartrate 50 MG Tab PO SCH (05:27)
[2017-06-17] MEDS: Mupirocin Crm 30 GM Tube TOP SCH (05:27)
[2017-06-17] MEDS: Acetaminophen 325 MG Tab PO PRN (05:34)
[2017-06-17] MEDS: Insulin Aspart 100 Units/ML 3 ML Pen SUBCUT SCH ×3 (06:43→12:41)
[2017-06-17] MEDS: Levothyroxine 75 MCG Tab PO SCH (07:34)
[2017-06-17] MEDS: Glimepiride 2 MG Tab PO SCH (07:37)
[2017-06-17] MEDS: Aspirin 325 MG Tab PO SCH (08:32)
[2017-06-17] MEDS: Docusate Sodium 100 MG Cap PO SCH (08:32)
[2017-06-17] MEDS: predniSONE 10 MG Tab PO SCH (08:32)
[2017-06-17] MEDS: Potassium Chloride 20 MEQ Tab.ER PO SCH (08:32)
[2017-06-17] MEDS: Ascorbic Acid 500 MG Tab PO SCH (08:32)
[2017-06-17] MEDS: PARoxetine 20 MG Tab PO SCH (08:32)
[2017-06-17] MEDS: Multivitamins with Iron/Calcium/Folic Acid/Minerals Tab PO SCH (08:32)
[2017-06-17] MEDS: Rivaroxaban 15 MG Tab PO SCH (08:32)
[2017-06-17] MEDS: Diltiazem 120 MG Cap.CD PO SCH (08:33)
[2017-06-17] MEDS: Ferrous Sulfate 325 MG Tab PO SCH (08:41)
[2017-06-17] MEDS: Cefepime 2 GM in Premix Bag 1 BAG IV SCH (08:47)
[2017-06-17] MEDS ORDERED: cloNIDine 0.1 MG/Day Transdermal Patch TRDERM SCH (09:00)
[2017-06-17] MEDS ORDERED: cloNIDine 0.3 MG/Day Transdermal Patch TRDERM SCH (09:00)
[2017-06-17] MEDS: fentaNYL 25 MCG/HR Transdermal Patch TRDERM SCH (09:01)
[2017-06-17] MEDS: Albuterol/Ipratropium 3.0-0.5 MG/3 ML Neb Soln NEB SCH (09:35)
[2017-06-17] MEDS: BREO ELLIPTA INH SCH (09:35)
--- NOTE | 2017-06-17 10:23 | CR ---
EXAMINATION: Two-view chest (PA and Lateral views). HISTORY: CHF. Comparison: 06/12/2017. FINDINGS: The trachea is midline. The cardiomediastinal silhouette is within normal limits. There is decreasing infiltrate within the left lung base. There is a right-sided PICC line. Osseous structures appear unremarkable. IMPRESSION: 1. Decreasing left basilar infiltrate.
--- NOTE | 2017-06-17 11:26 | PCM.DCSUM1 ---
Discharge Summary - Hospital Course Brief History: This 56 year old female with pmh of CVA, hx CAD s/p PCI, DM HTN, asplenia, chronic persistent afib on Xarelto, CHF, oxygen dependednt and obese present to the ED with worsening dyspnea. HR noted to be elevated 120-130. CXR reaveled no infiltrate but appeared to have vascular congestion. WBC 15,000, NA 147, K+3.1 UA have some pyuria. She was admitted with possible HCAP and UTI - Discharge Data Discharge Date: 06/17/17 Discharge Disposition: DC/Tfer to SNF 03 Condition: Good - Discharge Diagnosis/Problem(s) (1) Anasarca SNOMED Code(s): 740447877 ICD Code: R60.1 - GENERALIZED EDEMA Status: Chronic Priority: High Current Visit: No (2) Atrial fibrillation with rapid ventricular response SNOMED Code(s): 706093201300481 ICD Code: I48.91 - UNSPECIFIED ATRIAL FIBRILLATION Status: Acute Current Visit: Yes (3) Dyspnea SNOMED Code(s): 811494061 ICD Code: R06.00 - DYSPNEA, UNSPECIFIED Status: Acute Current Visit: Yes Qualifiers: Dyspnea type: shortness of breath Qualified Code(s): R06.02 - Shortness of breath; R06.00 - Dyspnea, unspecified; R06.01 - Orthopnea (4) Hypoxemia SNOMED Code(s): 525816394 ICD Code: R09.02 - HYPOXEMIA Status: Acute Current Visit: Yes (5) HTN (hypertension) SNOMED Code(s): 08060391 ICD Code: I10 - ESSENTIAL (PRIMARY) HYPERTENSION Status: Acute Current Visit: No Qualifiers: Hypertension type: essential hypertension Qualified Code(s): I10 - Essential (primary) hypertension (6) Polymyalgia rheumatica syndrome SNOMED Code(s): 69342331 ICD Code: M35.3 - POLYMYALGIA RHEUMATICA Status: Chronic Current Visit: No (7) Renal insufficiency SNOMED Code(s): 919172229 ICD Code: N28.9 - DISORDER OF KIDNEY AND URETER, UNSPECIFIED Status: Chronic Current Visit: No (8) Asplenia SNOMED Code(s): 140137394 ICD Code: Q89.01 - ASPLENIA (CONGENITAL) Status: Chronic Current Visit: No Problem Details: Splenectomy 2008 (9) DM type 2 (diabetes mellitus, type 2) SNOMED Code(s): 40099470 ICD Code: E11.9 - TYPE 2 DIABETES MELLITUS WITHOUT COMPLICATIONS Status: Chronic Priority: High Current Visit: No Qualifiers: Diabetes mellitus complication status: with neurologic complications Diabetes mellitus complication detail: with other neurological complication 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 Qualified Code(s) : E11.49 - Type 2 diabetes mellitus with other diabetic neurological complication; Z79.4 - 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 animal 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 (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) use of insulin (10) History of CVA (cerebrovascular accident) SNOMED Code(s): 438893802 ICD Code: Z86.73 - PRSNL HX OF TIA (TIA), AND CEREB INFRC W/O RESID DEFICITS Status: Chronic Current Visit: No (11) Hypothyroidism SNOMED Code(s): 38739572 ICD Code: E03.9 - HYPOTHYROIDISM, UNSPECIFIED Status: Chronic Current Visit: No Qualifiers: Hypothyroidism type: unspecified Qualified Code(s): E03.9 - Hypothyroidism , unspecified (12) Morbid obesity SNOMED Code(s): 163159779 ICD Code: E66.01 - MORBID (SEVERE) OBESITY DUE TO EXCESS CALORIES Status: Chronic Priority: High Current Visit: No (13) Wheelchair bound SNOMED Code(s): 430625725 ICD Code: Z99.3 - DEPENDENCE ON WHEELCHAIR Status: Chronic Current Visit : Yes (14) CHF (congestive heart failure) SNOMED Code(s): 83792700 ICD Code: I50.9 - HEART FAILURE, UNSPECIFIED Status: Acute Current Visit : Yes Qualifiers: Congestive heart failure type: systolic - Patient Summary/Data Consults: Consultations 06/13/17 08:50 Consult to Physician [CONS] Routine - Patient Instructions Diet: Heart Healthy Diet, Low Sodium, Diabetic Diet Fluid Restriction: 2000 mL Activity: As Tolerated Showering/Bathing: May Shower Notify Provider of: Fever, Increased Pain, Swelling and Redness, Drainage, Nausea and/or Vomiting Other/Special Instructions: AVIS wraps to bilateral legs daily for edema, remove at night and replace in ams. Wound care nurse consult. Daily weights, if weight increased by 2-3 pounds in 3-5 days please notify MD. Continuous oxygen 4 L NC keep sats 88% or better. PT/OT/ST to evaluate and treat - Discharge Plan Prescriptions/Med Rec: Cefdinir [Omnicef] 300 mg PO BID #10 cap Diltiazem [Cardizem CD] 120 mg PO BID #60 cap.cd fentaNYL [Duragesic] 25 mcg TRDERM Q72H #7 patch Furosemide [Lasix] 40 mg PO BID #30 tablet Metoprolol Tartrate [Lopressor] 100 mg PO TID #40 tablet Temazepam [Restoril] 15 mg PO BEDTIME #10 cap Home Medications: Home Meds Levothyroxine [Synthroid] 50 mcg PO SUTUTHSA@0700 02/18/15 [History] Multivit-Min/FA/Lycopene/Lut [Complete Multi 50+] 1 tab PO DAILY 02/18/15 [ History] atorvaSTATin [Lipitor] 40 mg PO BEDTIME 02/18/15 [History] metFORMIN [Glucophage] 500 mg PO BID 02/18/15 [History] Albuterol Sulfate [Proair Hfa] 2 puff IH QID PRN 10/16/16 [History] Dulaglutide [Trulicity] 0.75 mg SQ TU@2100 10/16/16 [History] Glimepiride [Amaryl] 2 mg PO WITHBREAKFAST 10/16/16 [History] Insulin Glarg,Human.Rec.Analog [LantUS Solostar] 22 units SUBCUT BEDTIME [History] PARoxetine HCl [Paroxetine HCl] 40 mg PO DAILY 10/16/16 [History] cloNIDine 0.3 mg TD .ON FRIDAYS @0900 10/16/16 [History] Polyethylene Glycol 3350 [MiraLAX] 17 gm PO DAILY PRN #10 packet 10/21/16 [Rx] Ferrous Sulfate 325 mg PO DAILY 03/05/17 [History] Prednisone [IJD: Prednisone] 10 mg PO DAILY 04/02/17 [History] Ascorbic Acid 1,000 mg PO DAILY 04/20/17 [History] Aspirin 325 mg PO DAILY 04/20/17 [History] Rivaroxaban [Xarelto] 15 mg PO DAILY 04/20/17 [History] Levothyroxine 75 mcg PO MOWEFR 05/28/17 [History] Albuterol/Ipratropium [DuoNeb 3.0-0.5 MG/3 ML] 3 ml NEB Q4H PRN 06/12/17 [ History] Fluticasone/Vilanterol [Breo Ellipta 100-25 MCG Inhalation Kit] 1 puff INH DAILY 06/12/17 [History] Insulin Aspart [NovoLOG] See Protocol SUBCUT ASDIRECTED 06/12/17 [History] Mirtazapine [Remeron] 45 mg PO BEDTIME 06/12/17 [History] Cefdinir [Omnicef] 300 mg PO BID #10 cap 06/17/17 [Rx] Diltiazem [Cardizem CD] 120 mg PO BID #60 cap.cd 06/17/17 [Rx] Furosemide [Lasix] 40 mg PO BID #30 tablet 06/17/17 [Rx] Metoprolol Tartrate [Lopressor] 100 mg PO TID #40 tablet 06/17/17 [Rx] Temazepam [Restoril] 15 mg PO BEDTIME #10 cap 06/17/17 [Rx] fentaNYL [Duragesic] 25 mcg TRDERM Q72H #7 patch 06/17/17 [Rx] Referrals: [facility] [Outside] Lilli Barreto MD [Physician] - 06/28/17 11:00 am Dean Gibson MD [Physician] - 06/23/17 (next [facility] Rounds) Ritchie Helm MD [Physician] - 08/03/17 1:00 pm - Discharge Summary/Plan Comment DC Time >30 min.: No Discharge Summary/Plan Comment: Discharge Diagnoses: CHF exacerbation, LV EF 45-50% Chronic persistent Afib on Xarelto Anasarca HCAP UTI Hx CAD s/p PCI hx CVA DM HTN Hx asplenia Obesity Non-ambulatory Stage II coccyx ulcer Danae was admitted and treated with Lasix, which was increased after poor diuresis to 40 mg TID. Metoprolol was increased to 100 mg TID and Diltiazem 120 mg BID was started for HR control. Today HR is better controlled in 80-90s, remains in Afib. She continues to had moderate anasarca, with +3 pitting edema to all limbs. BUN and CR have elevated which is restricting amount of IV diuresis. We have placed her on a 2 L FR, low sodium diet. She was also treated for HCAP and UTI. She was initially placed on broad spectrum antibiotics due to her recent hospitalizations and living in SNF. She continued to improve and feels dyspnea is 100% better. BC are negative, E coli UTI noted resistant to Levaquin. Antibiotics de-escalated and she remains on Cefepime today doing well. Leukocytosis noted, which may be due to daily Prednisone and asplenia. CXR shows improving L basilar infiltrate and no vasulcar congestion. Wound to R foot appears non-erythematous, no drainage noted. Coccyx stage 2 ulcer, dressing intact, but no erythema or drainage noted. Venous stasis skin changes noted to dorsal tibia, no erythema. She will be discharged back to [facility] today , with AVIS wraps for BLE edema. She is complaining of pain to R foot, especially with flexion, Tylenol helps the pain. Xrays completed, which show no gas and no osseous abnormalities, but does show significant edema. Pain may be due to edema, plan for AVIS wraps to help with dependent edema. She will be sent home with increasing Metoprolol 1-- mg TID, Diltiazem 120 mg BID and Lasix 40 mg BID. BMP recheck with Dr. Barreto in 2 weeks. strict 2 l FR, low sodium diet and daily weights to monitoring worsening/improving anasarca and CHF. She is to see PCP on next [facility] rounds. She will be sent home with Cefdinir 300 mg BID for UTI/PNA for another 5 days. - General Info Date of Service: 06/17/17 Admission Dx/Problem (Free Text: 56F CVA CAD PCI persistent afib RVR PNA CHF UTI Subjective Update: Feeling better todya, R foot still hurts intermittently. No chest pain, palpitations, or SOB. Functional Status: Reports: Pain Controlled, Tolerating Diet - Review of Systems General: Reports: No Symptoms HEENT: Reports: No Symptoms Pulmonary: Reports: No Symptoms. Denies: Shortness of Breath, Cough, Sputum Cardiovascular: Reports: Edema. Denies: Chest Pain, Palpitations Gastrointestinal: Reports: No Symptoms. Denies: Abdominal Pain, Nausea, Vomiting Genitourinary: Reports: No Symptoms. Denies: Dysuria Musculoskeletal: Reports: Foot Pain (R foot) Neurological: Reports: No Symptoms Psychiatric: Reports: No Symptoms - Patient Data Vitals - Most Recent: Last Vital Signs Temp 96.7 F 06/17/17 08:00 Pulse 111 H 06/17/17 08:33 Resp 20 06/17/17 08:00 BP 108/75 06/17/17 08:33 Pulse Ox 93 L 06/17/17 09:33 Weight - Most Recent: 116.981 kg I&O - Last 24 hours: Intake & Output 06/16/17 06/17/17 06/17/17 22:59 06:59 14:59 Intake Total 1000 200 Output Total 950 1400 Balance 50 -1200 Lab Results - Last 24 hrs: Laboratory Results - last 24 hr 06/16/17 06/16/17 06/16/17 Range/Units 12:11 17:14 20:32 WBC (4.0-11.0) K/uL RBC (4.30-5.90) M/uL Hgb (12.0-16.0) g/dL Hct (36.0-46.0) % MCV (80.0-98.0) fL MCH (27.0-32.0) pg MCHC (31.0-37.0) g/dL RDW Std Deviation (28.0-62.0) fl RDW Coeff of Leia (11.0-15.0) % Plt Count (150-400) K/uL MPV (7.40-12.00) fL Neut % (Auto) (48.0-80.0) % Lymph % (Auto) (16.0-40.0) % [place] % (Auto) (0.0-15.0) % Eos % (Auto) (0.0-7.0) % Baso % (Auto) (0.0-1.5) % Neut # (Auto) (1.4-5.7) K/uL Lymph # (Auto) (0.6-2.4) K/uL [place] # (Auto) (0.0-0.8) K/uL Eos # (Auto) (0.0-0.7) K/uL Baso # (Auto) (0.0-0.1) K/uL Nucleated RBC % /100WBC Nucleated RBCs # K/uL Sodium (136-146) mmol/L Potassium (3.5-5.1) mmol/L Chloride (98-110) mmol/L Carbon Dioxide (21-31) mmol/L BUN (6.0-23.0) mg/dL Creatinine (0.6-1.5) mg/dL Est Cr Clr Drug Dosing mL/min Estimated GFR (MDRD) ml/min Glucose (60-110) mg/dL POC Glucose 263 H 329 H 383 H (60-110) mg/dL Calcium (8.8-10.8) mg/dL Magnesium (1.5-2.3) mEq/L 06/17/17 06/17/17 06/17/17 Range/Units 04:56 04:56 06:03 WBC 17.64 H (4.0-11.0) K/uL RBC 3.33 L (4.30-5.90) M/uL Hgb 10.1 L (12.0-16.0) g/dL Hct 33.4 L (36.0-46.0) % MCV 100.3 H (80.0-98.0) fL MCH 30.3 (27.0-32.0) pg MCHC 30.2 L (31.0-37.0) g/dL RDW Std Deviation 62.2 H (28.0-62.0) fl RDW Coeff of Leia 17 H (11.0-15.0) % Plt Count 370 (150-400) K/uL MPV 12.60 H (7.40-12.00) fL Neut % (Auto) 78.9 (48.0-80.0) % Lymph % (Auto) 9.3 L (16.0-40.0) % [place] % (Auto) 9.1 (0.0-15.0) % Eos % (Auto) 2.5 (0.0-7.0) % Baso % (Auto) 0.2 (0.0-1.5) % Neut # (Auto) 13.9 H (1.4-5.7) K/uL Lymph # (Auto) 1.6 (0.6-2.4) K/uL [place] # (Auto) 1.6 H (0.0-0.8) K/uL Eos # (Auto) 0.4 (0.0-0.7) K/uL Baso # (Auto) 0.0 (0.0-0.1) K/uL Nucleated RBC % 2.3 /100WBC Nucleated RBCs # 0 K/uL Sodium 144 (136-146) mmol/L Potassium 4.0 (3.5-5.1) mmol/L Chloride 98 (98-110) mmol/L Carbon Dioxide 35 H (21-31) mmol/L BUN 53 H (6.0-23.0) mg/dL Creatinine 1.8 H (0.6-1.5) mg/dL Est Cr Clr Drug Dosing 29.63 mL/min Estimated GFR (MDRD) 28.9 ml/min Glucose 283 H (60-110) mg/dL POC Glucose 278 H (60-110) mg/dL Calcium 9.0 (8.8-10.8) mg/dL Magnesium 1.6 (1.5-2.3) mEq/L PAUL Results - Last 24 hrs: Microbiology 06/12/17 08:40 Aerobic Blood Culture - Final Blood - Venous NO GROWTH AFTER 5 DAYS Anaerobic Blood Culture - Final NO GROWTH AFTER 5 DAYS 06/12/17 08:27 Aerobic Blood Culture - Final Blood - Venous NO GROWTH AFTER 5 DAYS Anaerobic Blood Culture - Final NO GROWTH AFTER 5 DAYS Med Orders - Current: Current Medications Acetaminophen (Tylenol) 650 mg PO Q4H PRN PRN Reason: Pain (Mild 1-3)/fever Last Admin: 06/17/17 05:34 Dose: 650 mg Albuterol/Ipratropium (Duoneb 3.0-0.5 Mg/3 Ml) 3 ml NEB Q4HRRT PRN PRN Reason: SOB/wheezing Albuterol/Ipratropium (Duoneb 3.0-0.5 Mg/3 Ml) 3 ml NEB TID@1000,1400,2200 [facility] Last Admin: 06/17/17 09:35 Dose: 3 ml Ascorbic Acid (Vitamin C) 1,000 mg PO DAILY [facility] Last Admin: 06/17/17 08:32 Dose: 1,000 mg Aspirin (Aspirin) 325 mg PO DAILY [facility] Last Admin: 06/17/17 08:32 Dose: 325 mg Atorvastatin Calcium (Lipitor) 40 mg PO BEDTIME [facility] Last Admin: 06/16/17 21:04 Dose: 40 mg Bisacodyl (Dulcolax) 5 mg PO DAILY PRN PRN Reason: Constipation Clonidine HCl (Catapres-Tts 3) 0.3 mg TRDERM Q7D [facility] Last Admin: 06/17/17 10:14 Dose: 0.3 mg Diltiazem HCl (Cardizem Cd) 120 mg PO BID [facility] Last Admin: 06/17/17 08:33 Dose: 120 mg Docusate Sodium (Colace) 100 mg PO BID [facility] Last Admin: 06/17/17 08:32 Dose: 100 mg Fentanyl (Duragesic) 25 mcg TRDERM Q72H [facility] Last Admin: 06/17/17 09:01 Dose: 25 mcg Ferrous Sulfate (Ferrous Sulfate) 325 mg PO DAILY [facility] Last Admin: 06/17/17 08:41 Dose: 325 mg Furosemide (Lasix) 40 mg IVPUSH TID [facility] Last Admin: 06/17/17 05:27 Dose: 40 mg Glimepiride (Amaryl) 2 mg PO WITHBREAKFAST [facility] Last Admin: 06/17/17 07:37 Dose: 2 mg Cefepime HCl 2 gm/ Premix 50 mls @ 100 mls/hr IV Q12H [facility] Last Admin: 06/17/17 08:47 Dose: 100 mls/hr Insulin Aspart (Novolog) 0 unit SUBCUT ACBED [facility] PRN Reason: Protocol Last Admin: 06/17/17 07:34 Dose: 6 units Insulin Glargine (Lantus Solostar) 22 units SUBCUT BEDTIME [facility] Last Admin: 06/16/17 21:03 Dose: 22 units Levothyroxine Sodium (Synthroid) 50 mcg PO SuTuThSa@0730 [facility] Last Admin: 06/16/17 07:30 Dose: 50 mcg Levothyroxine Sodium (Levothyroxine) 75 mcg PO MoWeFr@0730 [facility] Last Admin: 06/17/17 07:34 Dose: 75 mcg Metoprolol Tartrate (Lopressor) 5 mg IVPUSH Q2H PRN PRN Reason: Tachycardia Last Admin: 06/16/17 16:20 Dose: 5 mg Metoprolol Tartrate (Lopressor) 100 mg PO TID [facility] Last Admin: 06/17/17 05:27 Dose: 100 mg Mirtazapine (Remeron) 45 mg PO BEDTIME [facility] Last Admin: 06/16/17 21:03 Dose: 45 mg Multivitamins/Minerals (Thera M Plus) 1 tab PO DAILY [facility] Last Admin: 06/17/17 08:32 Dose: 1 tab Mupirocin (Bactroban Crm) 1 gm TOP TID [facility] Last Admin: 06/17/17 05:27 Dose: 1 applic Ondansetron HCl (Zofran) 4 mg IVPUSH Q4H PRN PRN Reason: Nausea Last Admin: 06/14/17 10:32 Dose: 4 mg Paroxetine HCl (Paxil) 40 mg PO DAILY [facility] Last Admin: 06/17/17 08:32 Dose: 40 mg Dulaglutide [ (Trulicity]) 0 each SUBCUT Q7D [facility] Last Admin: 06/14/17 13:34 Dose: 1 each Breo Ellipta ( Fluticasone/Vilanterol) 1 each INH DAILY [facility] Last Admin: 06/17/17 09:35 Dose: 1 each Polyethylene Glycol (Miralax) 17 gm PO DAILY PRN PRN Reason: Constipation Last Admin: 06/12/17 18:20 Dose: 17 gm Potassium Chloride (Klor-Con M20) 40 meq PO BID [facility] Last Admin: 06/17/17 08:32 Dose: 40 meq Prednisone (Prednisone) 10 mg PO DAILY [facility] Last Admin: 06/17/17 08:32 Dose: 10 mg Rivaroxaban (Xarelto) 15 mg PO DAILY [facility] Last Admin: 06/17/17 08:32 Dose: 15 mg Sodium Chloride (Saline Flush) 10 ml FLUSH ASDIRECTED PRN PRN Reason: Keep Vein Open Sodium Chloride (Saline Flush) 2.5 ml FLUSH ASDIRECTED PRN PRN Reason: Keep Vein Open Temazepam (Restoril) 15 mg PO BEDTIME [facility] Last Admin: 06/16/17 21:03 Dose: 15 mg Wound Care/Dressing Products (Duoderm Cgf) 1 each TOP Q72H [facility] Last Admin: 06/15/17 12:57 Dose: 1 each Discontinued Medications Albuterol/Ipratropium (Duoneb 3.0-0.5 Mg/3 Ml) 3 ml NEB Q4H [facility] Last Admin: 06/12/17 15:46 Dose: Not Given Clonidine HCl (Catapres-Tts 1) 0.3 mg TRDERM ASDIRECTED [facility] Diltiazem HCl (Diltiazem) 20 mg IVPUSH ONETIME ONE Stop: 06/12/17 06:21 Last Admin: 06/12/17 08:15 Dose: 20 mg Diltiazem HCl (Cardizem Cd) 180 mg PO DAILY [facility] Last Admin: 06/14/17 09:11 Dose: 180 mg Diltiazem HCl (Diltiazem) 10 mg IVPUSH ONETIME ONE Stop: 06/12/17 19:05 Last Admin: 06/12/17 19:21 Dose: 15 mg Diltiazem HCl (Diltiazem) 10 mg IVPUSH ONETIME ONE Stop: 06/12/17 19:52 Last Admin: 06/12/17 20:19 Dose: 10 mg Diltiazem HCl (Cardizem Cd) 120 mg PO DAILY [facility] Fentanyl (Duragesic) 25 mcg TRDERM Q72H [facility] Last Admin: 06/12/17 15:46 Dose: Not Given Furosemide (Lasix) 40 mg IVPUSH NOW ONE Stop: 06/12/17 05:56 Last Admin: 06/12/17 08:47 Dose: 40 mg Furosemide (Lasix) Confirm Administered Dose 40 mg .ROUTE .STK-MED ONE Stop: 06/12/17 08:34 Last Admin: 06/12/17 08:44 Dose: Not Given Furosemide (Lasix) 40 mg PO DAILY [facility] Last Admin: 06/13/17 08:06 Dose: 40 mg Furosemide (Lasix) 40 mg IVPUSH NOW ONE Stop: 06/13/17 14:25 Last Admin: 06/13/17 14:52 Dose: 40 mg Furosemide (Lasix) 40 mg IVPUSH NOW ONE Stop: 06/14/17 08:07 Last Admin: 06/14/17 08:44 Dose: 40 mg Furosemide (Lasix) 40 mg IVPUSH BIDDIURETIC [facility] Last Admin: 06/15/17 08:13 Dose: 40 mg Glimepiride (Glimepiride) 2 mg PO WITHBREAKFAST [facility] Last Admin: 06/12/17 15:47 Dose: Not Given Sodium Chloride (Normal Saline) 1,000 mls @ 30 mls/hr IV STAT [facility] Last Admin: 06/12/17 08:40 Dose: 30 mls/hr Lidocaine HCl (Xylocaine-Mpf 1%) Confirm Administered Dose 4 mls @ as directed .ROUTE .STK-MED ONE Stop: 06/12/17 06:47 Last Admin: 06/12/17 07:55 Dose: Not Given Levofloxacin/Dextrose 750 mg/ (Premix) 150 mls @ 100 mls/hr IV ONETIME ONE Stop: 06/12/17 09:55 Last Admin: 06/12/17 08:50 Dose: 100 mls/hr Levofloxacin/Dextrose 750 mg/ (Premix) 150 mls @ 100 mls/hr IV Q24H [facility] Last Admin: 06/13/17 08:07 Dose: 100 mls/hr Vancomycin HCl 1,750 mg/ (Sodium Chloride) 500 mls @ 250 mls/hr IV Q24H [facility] Last Admin: 06/14/17 11:54 Dose: 250 mls/hr Levofloxacin/Dextrose 750 mg/ (Premix) 150 mls @ 100 mls/hr IV Q48H [facility] Magnesium Sulfate 2 gm/ Premix 50 mls @ 50 mls/hr IV ONETIME ONE Stop: 06/13/17 14:00 Last Admin: 06/13/17 14:51 Dose: 50 mls/hr Magnesium Sulfate 2 gm/ Premix 50 mls @ 50 mls/hr IV ONETIME ONE Stop: 06/14/17 09:12 Last Admin: 06/14/17 08:35 Dose: 50 mls/hr Levothyroxine Sodium (Levothyroxine) 75 mcg PO MoWeFr@0730 [facility] Levothyroxine Sodium (Synthroid) 50 mcg PO ASDIRECTED [facility] Lidocaine HCl (Xylocaine 1%) 20 ml INJECT ONETIME ONE Stop: 06/12/17 07:52 Last Admin: 06/12/17 07:54 Dose: 20 ml Lidocaine HCl (Xylocaine 1%) Confirm Administered Dose 20 ml .ROUTE .STK-MED ONE Stop: 06/12/17 07:54 Last Admin: 06/12/17 08:24 Dose: Not Given Lidocaine/Epinephrine (Xylocaine 1% With Epinephrine 1:100,000) Confirm Administered Dose 20 ml .ROUTE .STK-MED ONE Stop: 06/12/17 07:53 Last Admin: 06/12/17 08:23 Dose: Not Given Methylprednisolone Sodium Succinate (Solu-Medrol) 125 mg IVPUSH ONETIME ONE Stop: 06/12/17 05:56 Last Admin: 06/12/17 08:44 Dose: 125 mg Methylprednisolone Sodium Succinate (Solu-Medrol) Confirm Administered Dose 125 mg .ROUTE .STK-MED ONE Stop: 06/12/17 08:34 Last Admin: 06/12/17 08:44 Dose: Not Given Metoprolol Tartrate (Lopressor) 75 mg PO TID [facility] Last Admin: 06/16/17 14:40 Dose: 75 mg Metoprolol Tartrate (Lopressor) 5 mg IVPUSH ONETIME ONE Stop: 06/12/17 14:23 Last Admin: 06/12/17 14:35 Dose: 5 mg Metoprolol Tartrate (Lopressor) 25 mg PO ONETIME ONE Stop: 06/16/17 16:41 Last Admin: 06/16/17 16:49 Dose: 25 mg Potassium Chloride (Klor-Con M20) 40 meq PO ONETIME ONE Stop: 06/12/17 11:13 Last Admin: 06/12/17 11:41 Dose: 40 meq Potassium Chloride (Klor-Con M20) 40 meq PO ONETIME ONE Stop: 06/14/17 08:14 Last Admin: 06/14/17 08:37 Dose: 40 meq Vancomycin HCl (Pharmacy To Dose - Vancomycin) 1 dose .XX ASDIRECTED [facility] - Exam Quality Assessment: Reports: Supplemental Oxygen, Central Line/PICC, Urine Catheter, DVT Prophylaxis General: Reports: Alert, Oriented, Cooperative, No Acute Distress Lungs: Reports: Clear to Auscultation, Normal Respiratory Effort Cardiovascular: Reports: Regular Rate, Irregular Rhythm. Denies: Murmurs GI/Abdominal Exam: Normal Bowel Sounds, Soft, Non-Tender, No Organomegaly, No Distention, No Abnormal Bruit, No Mass, Pelvis Stable Extremities: Leg Pain (pain to R foot, no erythema, noted pitting edema, able to move, but with pain. Dorsi flexion causes pain NO erythema to calf and to calf tenderness.), Other (anasarca noted, +3 pitting edema through out, including extremities, coccyx and abdomen.) Skin: Reports: Warm, Dry. Denies: Intact Wound/Incisions: Reports: Dressing Dry and Intact (Stage 2 ulcer to coccyx, no drainage or erythema), Other (open area to L foot, no erythem or drainage noted. healing well. No necrotic tissue noted.) Psy/Mental Status: Reports: Alert, Normal Affect, Normal Mood *Q Meaningful Use (DIS) - VTE *Q VTE Criteria *Q: - Stroke *Q Stroke Criteria *Q: - AMI *Q AMI Criteria *Q:
[2017-06-17 13:40] VITALS: BP 136/80
== END 2017-06-17 13:45 | DRG 194 ==
LOC: MW.ED 05:54 → MW.MS 08:13
PROVIDERS: ADMIT Family Medicine; ATTEND Family Medicine
PROC: 06HY33Z Insertion of Infusion Device into Lower Vein, Percutaneous Approach (ICD-10-PCS; principal; 2017-06-12)
PROC: 02HV33Z Insertion of Infusion Device into Superior Vena Cava, Percutaneous Approach (ICD-10-PCS; 2017-06-13)
DX: J18.9 Pneumonia, unspecified organism (principal); N39.0 Urinary tract infection, site not specified; I13.0 Hypertensive heart and chronic kidney disease with heart failure and stage 1 through stage 4 chronic kidney disease, or unspecified chronic kidney disease; Q89.01 Asplenia (congenital); I48.91 Unspecified atrial fibrillation; R06.00 Dyspnea, unspecified; R09.02 Hypoxemia; D72.829 Elevated white blood cell count, unspecified; I50.9 Heart failure, unspecified; R60.1 Generalized edema; N18.9 Chronic kidney disease, unspecified; E11.49 Type 2 diabetes mellitus with other diabetic neurological complication; E03.9 Hypothyroidism, unspecified; E11.9 Type 2 diabetes mellitus without complications; E66.01 Morbid (severe) obesity due to excess calories; Z79.01 Long term (current) use of anticoagulants; E78.00 Pure hypercholesterolemia, unspecified; I25.2 Old myocardial infarction; F41.8 Other specified anxiety disorders; M35.3 Polymyalgia rheumatica; M25.572 Pain in left ankle and joints of left foot; I25.10 Atherosclerotic heart disease of native coronary artery without angina pectoris; Z86.73 Personal history of transient ischemic attack (TIA), and cerebral infarction without residual deficits; Z99.3 Dependence on wheelchair; Z88.8 Allergy status to other drugs, medicaments and biological substances; Z79.4 Long term (current) use of insulin; Z79.899 Other long term (current) drug therapy
CPT/HCPCS: 36415; 36569; 71010; 71010-26; 71020; 71020-26; 73610-26-LT; 73610-LT; 76937; 76937-26; 77001; 77001-26; 80048; 80053; 81001; 82550; 82553; 82962; 83735; 83880; 84484; 85025; 85610; 87040; 87086; 87088; 87186; 93005; 94640; 96365; 96375; 99283; 99291; 99292; A9270-GY; J0692; J1815-GY; J1940; J1956; J2405; J2930; J3370; J3475; J3490; J7040

== ENCOUNTER 2017-08-27 03:37 | Inpatient (IN) | payer MEDICARE, MEDICAID ==
[2017-08-27] MEDS ORDERED: Sodium Chloride 0.9% 2.5 ML Syringe FLUSH PRN (03:43)
[2017-08-27] MEDS ORDERED: Sodium Chloride 0.9% 10 ML Syringe FLUSH PRN (03:43)
--- NOTE | 2017-08-27 03:54 | EDM.PDOC ---
ED HPI GENERAL MEDICAL PROBLEM - General Stated Complaint: SHORTNESS OF BREATH Time Seen by Provider: 08/27/17 03:39 - History of Present Illness INITIAL COMMENTS - FREE TEXT/NARRATIVE: HISTORY AND PHYSICAL: History of present illness: The patient is a 57-year-old female who is a resident at [facility] to multiple medical problems and inability to care for herself and presents via EMS for shortness of breath that she started complaining of at 3 AM, approximately 3 hours ago. Per EMS when they arrived at the assisted they did not have any paperwork for her and in fact were delayed at even letting them into the building. They did not inform the paramedics of her CODE STATUS and they said that their system was down and they could not access her med list and they did not send any paperwork here with her. They also did not call or phone our ER to give report so the history is very sketchy and the patient is a very poor historian. She tells me that she started getting short of breath a few hours ago and that she retains fluid on a regular basis but she is retaining more fluid than usual. She has no chest pain but she says she has coughed earlier today. She denies any abdominal pain and can only answer simple questions. She says that she is bedridden and does not get up and about at all. Per the computer she has a history of diabetes stroke hypertension hypothyroidism recurrent UTIs polymyalgia rheumatica A. 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 Our nursing supervisor tellers was able to get a hold of the staff at [facility] and they tell us she is a code 3. The patient says she is very short of breath and feels very generalized weakness and fatigue. The patient answers questions and simple answers in short sentences and does not elaborate very much in our dialogue. Please note that our nursing supervisor tellers has called [facility] to confirm verbally over the telephone that the patient is a code 3. I will respect this status Review of systems: As per history of present illness and below otherwise all systems reviewed and negative. Past medical history: As per history of present illness and as reviewed below otherwise noncontributory. Surgical history: As per history of present illness and as reviewed below otherwise noncontributory. Social history: No reported history of drug or alcohol abuse. Family history: As per history of present illness and as reviewed below otherwise noncontributory. Physical exam: Abdominal: Well-developed morbidly obese female who is answering simple questions and looks uncomfortable in the room due to some work of breathing and vital signs are noted by me HEENT: Atraumatic, normocephalic, pupils reactive, negative for conjunctival pallor or scleral icterus, mucous membranes moist, throat clear, neck supple, nontender, trachea midline. Lungs: Good air exchange with coarse breath sounds in the upper negrete bilaterally but the lower negrete are incredibly diminished with minimal air exchange right greater than left, there is some abdominal work of breathing, breath sounds equal bilaterally, chest nontender. Heart: S1S2, tachycardic rate with irregular rate consistent with her history of A. fib, negative for clicks, rubs, or murmurs but heart sounds are very distant Abdomen: Soft, nondistended, nontender. Negative for masses and there is no rebound guarding or tympany on percussion. NABS Pelvis: Stable nontender. Genitourinary: Deferred. Rectal: Deferred. Extremities: Atraumatic, negative for cords or calf pain. Neurovascular unremarkable. Patient has gross pitting edema up to her thigh level as well as bilateral hands and arms with the left hand being more prominently swollen than the remainder of her other extremities. Neuro: Awake, alert, oriented to person and place. Motor is extremely diminished in lower extremities 1-2/5 but this is consistent with her history of being bedridden and upper extremities are 4/5 and the patient is able to grasp and move her upper extremities spontaneously with sensory unremarkable throughout. Exam nonfocal. Skin: Patient is pale not diaphoretic and turgor is difficult to assess due to her generalized anasarca upper extremities Diagnostics: EKG CBC CMP BNP INR troponin UA urine culture blood cultures 2 chest x-ray lactic acid Therapeutics: IV O2 monitor patient received DuoNeb in route C Pap Lasix Cardizem Lovenox Zosyn Because no paperwork was sent with the patient and no report was called in our nursing staff has contacted the staff at [facility] at 4 AM and have obtained her med list. According to them she is no longer on Xarelto or Cardizem and she is not taking any Lasix. She was on these medications back in May for her A. fib with RVR and her anasarca. They tell us that she is only on the metoprolol and the other meds are not currently being given they reiterated again to my nursing staff that this patient is a code 3. We will continue with the C Pap and our evaluation and plan for admission and will respect the code 3 status Patient's weight on June [id number] was 116 kg and we currently do not have a current weight from [facility] so I will utilize that number for medications today. 0425: Patient's presentation and clinical course up to this point has been discussed with our hospitalist Dr. Franks. He is aware of the chest x-ray and the labs that we have so far. He is in agreement to give Cardizem and Lovenox as well as the Zosyn and continue C Pap until we can have a dialogue with the family. He would like me to give 60 mg of Lasix and hold any IV fluids. I discussed with him that we still do not have any paperwork from [facility] regarding next of kin or power of database marketing specialist and he will come in to evaluate this patient and assess placement in ICU or the floor pending his evaluation. Patient currently has stable blood pressure and is still tachycardic and she is on the C Pap and has decreased level of unresponsiveness them when she initially arrived. 0545: Dr. Franks is here in the ER evaluating the patient and will have a dialogue with family about care plan. Patient is arousable to voice but does not follow simple commands and is not verbalizing currently. Critical care time exceeding procedures:31min Impression: Dyspnea with anasarca, rule out left lower lobe pneumonia, UTI, early sepsis, acute respiratory failure Patient with history of renal disease, fluid overload A. fib with RVR and multiple other medical problems Definitive disposition and diagnosis as appropriate pending reevaluation and review of above. - Related Data Allergies Allergy/AdvReac Type Severity Reaction Status Date / Time kaylah inhibitor Allergy Airway Uncoded 08/27/17 03:49 Tightness Home Meds: Home Meds Levothyroxine [Synthroid] 50 mcg PO SUTUTHSA@0700 02/18/15 [History] Multivit-Min/FA/Lycopene/Lut [Complete Multi 50+] 1 tab PO DAILY 02/18/15 [ History] atorvaSTATin [Lipitor] 40 mg PO BEDTIME 02/18/15 [History] metFORMIN [Glucophage] 500 mg PO BID 02/18/15 [History] Albuterol Sulfate [Proair Hfa] 2 puff IH QID PRN 10/16/16 [History] Dulaglutide [Trulicity] 0.75 mg SQ TU@2100 10/16/16 [History] Glimepiride [Amaryl] 2 mg PO WITHBREAKFAST 10/16/16 [History] Insulin Glarg,Human.Rec.Analog [LantUS Solostar] 22 units SUBCUT BEDTIME [History] PARoxetine HCl [Paroxetine HCl] 40 mg PO DAILY 10/16/16 [History] cloNIDine 0.3 mg TD .ON FRIDAYS @0900 10/16/16 [History] Polyethylene Glycol 3350 [MiraLAX] 17 gm PO DAILY PRN #10 packet 10/21/16 [Rx] Ferrous Sulfate 325 mg PO DAILY 03/05/17 [History] Prednisone [IJD: Prednisone] 7.5 mg PO DAILY 04/02/17 [History] Ascorbic Acid 1,000 mg PO DAILY 04/20/17 [History] Aspirin 325 mg PO DAILY 04/20/17 [History] Rivaroxaban [Xarelto] 15 mg PO DAILY 04/20/17 [History] Levothyroxine 75 mcg PO MOWEFR 05/28/17 [History] Albuterol/Ipratropium [DuoNeb 3.0-0.5 MG/3 ML] 3 ml NEB Q4H PRN 06/12/17 [ History] Fluticasone/Vilanterol [Breo Ellipta 100-25 MCG Inhalation Kit] 1 puff INH DAILY 06/12/17 [History] Insulin Aspart [NovoLOG] See Protocol SUBCUT ASDIRECTED 06/12/17 [History] Mirtazapine [Remeron] 45 mg PO BEDTIME 06/12/17 [History] Diltiazem [Cardizem CD] 120 mg PO BID #60 cap.cd 06/17/17 [Rx] Furosemide [Lasix] 40 mg PO BID #30 tablet 06/17/17 [Rx] Metoprolol Tartrate [Lopressor] 100 mg PO TID #40 tablet 06/17/17 [Rx] Temazepam [Restoril] 15 mg PO BEDTIME #10 cap 06/17/17 [Rx] fentaNYL [Duragesic] 25 mcg TRDERM Q72H #7 patch 06/17/17 [Rx] Past Medical History HEENT History: Reports: None Cardiovascular History: Reports: Afib, CAD, High Cholesterol, Hypertension, [place] Other Cardiovascular History: atherosclerotic heart dse without angina; Respiratory History: Reports: Asthma, COPD, Other (See Below) Other Respiratory History: Hypoxemia; chronic respiratory failure, unspecified wether hypoxia or hypercapnea Gastrointestinal History: Reports: Gastritis Other Gastrointestinal History: acquired absence of spleen; non-specific gastroenteritis and colitis Genitourinary History: Reports: Acute Renal Failure, Chronic Renal Insuffiency, UTI, Recurrent [employer] History: Reports: None Musculoskeletal History: Reports: Fracture, Osteoporosis, Other (See Below) Other Musculoskeletal History: Restless Leg Syndrome, Hemiplegia and hemiparesis post CVA, frequent falls; polymyalgia rheumatica; facial weakness following cerebral infarction Neurological History: Reports: CVA, Other (See Below) Other Neuro History: "3 strokes" Psychiatric History: Reports: Anxiety, Depression Endocrine/Metabolic History: Reports: Diabetes, Type II, Hypothyroidism, Osteoporosis Other Endocrine/Metabolic History: group home use of insulin Hematologic History: Reports: Anticoagulation Therapy Immunologic History: Reports: None Oncologic (Cancer) History: Reports: None Dermatologic History: Reports: Other (See Below) Other Dermatologic History: chronic open wound to right foot - Infectious Disease History Infectious Disease History: Reports: None - Past Surgical History Cardiovascular Surgical History: Reports: None Respiratory Surgical History: Reports: None Female Surgical History: Reports: None Endocrine Surgical History: Reports: None Neurological Surgical History: Reports: None Musculoskeletal Surgical History: Reports: None Social & Family History - Family History Family Medical History: Noncontributory - Tobacco Use Smoking Status *Q: Never Smoker Second Hand Smoke Exposure: No - Caffeine Use Caffeine Use: Reports: Coffee - Recreational Drug Use Recreational Drug Use: No Drug Use in Last 12 Months: No Recreational Drug Type: Reports: Marijuana/Hashish Other Recreational Drug Type: Patient reports "smoking pot" today Recreational Drug Use Frequency: Daily - Living Situation & Occupation Living situation: Reports: Extended Care Facility ED ROS GENERAL - Review of Systems Review Of Systems: ROS reveals no pertinent complaints other than HPI. ED EXAM, GENERAL - Physical Exam Exam: See Below (See dictation) Course - Vital Signs Last Recorded V/S: Last Vital Signs Temp 36.1 C 08/27/17 03:37 Pulse 159 H 08/27/17 05:46 Resp 10 L 08/27/17 04:39 BP 140/85 08/27/17 05:46 Pulse Ox 91 L 08/27/17 05:01 - Orders/Labs/Meds Orders: Active Orders 24 hr Category Date Time Status Patient Status [ADT] Stat ADT 08/27/17 06:14 Ordered CPAP Adult [RT BiPAP/CPAP] [RC] ASDIRECTED Care 08/27/17 04:02 Active Cardiac Monitoring [RC] . DIRECTED Care 08/27/17 03:43 Active EKG Documentation Completion [RC] STAT Care 08/27/17 03:43 Active Oxygen Therapy, ED [RC] ASDIRECTED Care 08/27/17 03:43 Active Pulse Oximetry [RC] ASDIRECTED Care 08/27/17 03:43 Active Chest 1V Frontal [CR] Stat Exams 08/27/17 03:44 Taken CULTURE BLOOD [BC] Stat Lab 08/27/17 04:25 Received CULTURE BLOOD [BC] Stat Lab 08/27/17 04:35 Results CULTURE URINE [RM] Stat Lab 08/27/17 04:00 Received LACTATE WITH REFLEX [BG] Stat Lab 08/27/17 04:03 Ordered Sodium Chloride 0.9% [Saline Flush] Med 08/27/17 03:43 Active 10 ml FLUSH ASDIRECTED PRN Sodium Chloride 0.9% [Saline Flush] Med 08/27/17 03:43 Active 2.5 ml FLUSH ASDIRECTED PRN Blood Culture x2 Reflex Set [OM.PC] Stat Oth 08/27/17 04:03 Ordered Saline Lock Insert [OM.PC] Stat Oth 08/27/17 03:43 Ordered Medication Orders Sodium Chloride (Saline Flush) 10 ml FLUSH ASDIRECTED PRN PRN Reason: Keep Vein Open Sodium Chloride (Saline Flush) 2.5 ml FLUSH ASDIRECTED PRN PRN Reason: Keep Vein Open Labs: Laboratory Tests 08/27/17 08/27/17 08/27/17 Range/Units 03:47 03:47 03:47 WBC 16.05 H (4.0-11.0) K/uL RBC 4.20 L (4.30-5.90) M/uL Hgb 11.0 L (12.0-16.0) g/dL Hct 39.0 (36.0-46.0) % MCV 92.9 (80.0-98.0) fL MCH 26.2 L (27.0-32.0) pg MCHC 28.2 L (31.0-37.0) g/dL RDW Std Deviation 59.1 (28.0-62.0) fl RDW Coeff of Leia 18 H (11.0-15.0) % Plt Count 405 H (150-400) K/uL MPV 11.70 (7.40-12.00) fL Neut % (Auto) 88.1 H (48.0-80.0) % Lymph % (Auto) 4.1 L (16.0-40.0) % Graves % (Auto) 6.7 (0.0-15.0) % Eos % (Auto) 0.9 (0.0-7.0) % Baso % (Auto) 0.2 (0.0-1.5) % Neut # (Auto) 14.1 H (1.4-5.7) K/uL Lymph # (Auto) 0.7 (0.6-2.4) K/uL Graves # (Auto) 1.1 H (0.0-0.8) K/uL Eos # (Auto) 0.2 (0.0-0.7) K/uL Baso # (Auto) 0.0 (0.0-0.1) K/uL Nucleated RBC % 0.7 /100WBC Nucleated RBCs # 0 K/uL INR 1.08 (0.86-1.11) Lactate (0.20-2.00) mmol/L Sodium 150 H (136-146) mmol/L Potassium 4.6 (3.5-5.1) mmol/L Chloride 96 L (98-110) mmol/L Carbon Dioxide 36 H (21-31) mmol/L BUN 71 H (6.0-23.0) mg/dL Creatinine 1.9 H (0.6-1.5) mg/dL Est Cr Clr Drug Dosing TNP Estimated GFR (MDRD) 27.1 ml/min Glucose 80 (60-110) mg/dL Calcium 9.7 (8.8-10.8) mg/dL Total Bilirubin 0.3 (0.1-1.5) mg/dL AST 40 (5-40) IU/L ALT 43 (8-54) IU/L Alkaline Phosphatase 154 H (40-150) Troponin I < 0.10 (0.0-0.29) NG/ML B-Natriuretic Peptide (<100) PG/ML Total Protein 6.6 (6.0-8.0) g/dL Albumin 3.5 (3.5-5.0) g/dL Globulin 3.1 (2.0-3.5) g/dL Albumin/Globulin Ratio 1.1 L (1.3-2.8) Urine Color Urine Appearance Urine pH (5.0-8.0) Ur Specific Holcomb (1.001-1.035) Urine Protein (NEGATIVE) mg/dL Urine Glucose (UA) (NEGATIVE) mg/dL Urine Ketones (NEGATIVE) mg/dL Urine Occult Blood (NEGATIVE) Urine Nitrite (NEGATIVE) Urine Bilirubin (NEGATIVE) Urine Urobilinogen (<2.0) EU/dL Ur Leukocyte Esterase (NEGATIVE) Urine RBC (0-2/HPF) Urine WBC (0-5/HPF) Ur Epithelial Cells (NONE-FEW) Urine Bacteria (NEGATIVE) Urine Mucus (NONE-MOD) 08/27/17 08/27/17 08/27/17 Range/Units 03:47 03:47 04:00 WBC (4.0-11.0) K/uL RBC (4.30-5.90) M/uL Hgb (12.0-16.0) g/dL Hct (36.0-46.0) % MCV (80.0-98.0) fL MCH (27.0-32.0) pg MCHC (31.0-37.0) g/dL RDW Std Deviation (28.0-62.0) fl RDW Coeff of Leia (11.0-15.0) % Plt Count (150-400) K/uL MPV (7.40-12.00) fL Neut % (Auto) (48.0-80.0) % Lymph % (Auto) (16.0-40.0) % Graves % (Auto) (0.0-15.0) % Eos % (Auto) (0.0-7.0) % Baso % (Auto) (0.0-1.5) % Neut # (Auto) (1.4-5.7) K/uL Lymph # (Auto) (0.6-2.4) K/uL Graves # (Auto) (0.0-0.8) K/uL Eos # (Auto) (0.0-0.7) K/uL Baso # (Auto) (0.0-0.1) K/uL Nucleated RBC % /100WBC Nucleated RBCs # K/uL INR (0.86-1.11) Lactate 2.6 H (0.20-2.00) mmol/L Sodium (136-146) mmol/L Potassium (3.5-5.1) mmol/L Chloride (98-110) mmol/L Carbon Dioxide (21-31) mmol/L BUN (6.0-23.0) mg/dL Creatinine (0.6-1.5) mg/dL Est Cr Clr Drug Dosing Estimated GFR (MDRD) ml/min Glucose (60-110) mg/dL Calcium (8.8-10.8) mg/dL Total Bilirubin (0.1-1.5) mg/dL AST (5-40) IU/L ALT (8-54) IU/L Alkaline Phosphatase (40-150) Troponin I (0.0-0.29) NG/ML B-Natriuretic Peptide 590 H (<100) PG/ML Total Protein (6.0-8.0) g/dL Albumin (3.5-5.0) g/dL Globulin (2.0-3.5) g/dL Albumin/Globulin Ratio (1.3-2.8) Urine Color YELLOW Urine Appearance CLOUDY Urine pH 5.5 (5.0-8.0) Ur Specific Holcomb 1.020 (1.001-1.035) Urine Protein TRACE (NEGATIVE) mg/dL Urine Glucose (UA) NEGATIVE (NEGATIVE) mg/dL Urine Ketones NEGATIVE (NEGATIVE) mg/dL Urine Occult Blood SMALL H (NEGATIVE) Urine Nitrite POSITIVE H (NEGATIVE) Urine Bilirubin NEGATIVE (NEGATIVE) Urine Urobilinogen 0.2 (<2.0) EU/dL Ur Leukocyte Esterase MODERATE (NEGATIVE) Urine RBC 1-3 (0-2/HPF) Urine WBC 150-250 (0-5/HPF) Ur Epithelial Cells RARE (NONE-FEW) Urine Bacteria 2+ H (NEGATIVE) Urine Mucus RARE (NONE-MOD) Meds: Medications Generic Name Dose Route Start Last Admin Trade Name Freq PRN Reason Stop Dose Admin Sodium Chloride 10 ml 08/27/17 03:43 Saline Flush FLUSH ASDIRECTED PRN Keep Vein Open Sodium Chloride 2.5 ml 08/27/17 03:43 Saline Flush FLUSH ASDIRECTED PRN Keep Vein Open Discontinued Medications Generic Name Dose Route Start Last Admin Trade Name Freq PRN Reason Stop Dose Admin Diltiazem HCl 10 mg 08/27/17 04:19 08/27/17 04:26 Diltiazem IVPUSH 08/27/17 04:20 10 mg ONETIME ONE Administration Enoxaparin Sodium 100 mg 08/27/17 04:34 08/27/17 04:38 Lovenox SUBCUT 08/27/17 04:35 100 mg ONETIME ONE Administration Furosemide 60 mg 08/27/17 04:31 08/27/17 04:33 Lasix IVPUSH 08/27/17 04:32 60 mg NOW ONE Administration Furosemide Confirm 08/27/17 04:32 08/27/17 05:11 Lasix Administered 08/27/17 04:33 Not Given Dose 80 mg .ROUTE .STK-MED ONE Piperacillin Sod/Tazobactam 50 mls @ 100 mls/hr 08/27/17 04:18 08/27/17 04:28 Sod 3.375 gm/ Sodium Chloride IV 08/27/17 04:47 100 mls/hr ONETIME ONE Administration Departure - Departure Time of Disposition: 06:17 Disposition: Admitted As Inpatient 64 Condition: Poor Clinical Impression: Anasarca Respiratory failure Qualifiers: Chronicity: acute on chronic Respiratory failure complication: unspecified whether with hypoxia or hypercapnia Qualified Code(s): J96.20 - Acute and chronic respiratory failure, unspecified whether with hypoxia or hypercapnia - Discharge Information Referrals: Dean Gibson MD [Primary Care Provider] - - My Orders Last 24 Hours: My Active Orders 08/27/17 03:43 Cardiac Monitoring [RC] . DIRECTED EKG Documentation Completion [RC] STAT Oxygen Therapy, ED [RC] ASDIRECTED Pulse Oximetry [RC] ASDIRECTED Sodium Chloride 0.9% [Saline Flush] 10 ml FLUSH ASDIRECTED PRN Sodium Chloride 0.9% [Saline Flush] 2.5 ml FLUSH ASDIRECTED PRN Saline Lock Insert [OM.PC] Stat 08/27/17 03:44 Chest 1V Frontal [CR] Stat 08/27/17 04:00 CULTURE URINE [RM] Stat 08/27/17 04:02 CPAP Adult [RT BiPAP/CPAP] [RC] ASDIRECTED 08/27/17 04:03 LACTATE WITH REFLEX [BG] Stat Blood Culture x2 Reflex Set [OM.PC] Stat 08/27/17 04:25 CULTURE BLOOD [BC] Stat 08/27/17 04:35 CULTURE BLOOD [BC] Stat 08/27/17 06:14 Patient Status [ADT] Stat - Assessment/Plan Last 24 Hours: My Active Orders 08/27/17 03:43 Cardiac Monitoring [RC] . DIRECTED EKG Documentation Completion [RC] STAT Oxygen Therapy, ED [RC] ASDIRECTED Pulse Oximetry [RC] ASDIRECTED Sodium Chloride 0.9% [Saline Flush] 10 ml FLUSH ASDIRECTED PRN Sodium Chloride 0.9% [Saline Flush] 2.5 ml FLUSH ASDIRECTED PRN Saline Lock Insert [OM.PC] Stat 08/27/17 03:44 Chest 1V Frontal [CR] Stat 08/27/17 04:00 CULTURE URINE [RM] Stat 08/27/17 04:02 CPAP Adult [RT BiPAP/CPAP] [RC] ASDIRECTED 08/27/17 04:03 LACTATE WITH REFLEX [BG] Stat Blood Culture x2 Reflex Set [OM.PC] Stat 08/27/17 04:25 CULTURE BLOOD [BC] Stat 08/27/17 04:35 CULTURE BLOOD [BC] Stat 08/27/17 06:14 Patient Status [ADT] Stat
[2017-08-27 04:17] LABS: CHLORIDE,CL 96 mmol/L (98-110); SODIUM,NA 150 mmol/L (136-146)
[2017-08-27] MEDS ORDERED: Piperacillin/Tazobactam 3.375 GM in Sodium Chloride 0.9% 50 ML IV ONE (04:18)
[2017-08-27] MEDS ORDERED: Diltiazem 25 MG/5 ML SDV IVPUSH ONE ×2 (04:19→06:52)
[2017-08-27] MEDS ORDERED: Furosemide 40 MG/4 ML VIAL IVPUSH ONE (04:31)
[2017-08-27] MEDS ORDERED: Furosemide 40 MG/4 ML VIAL ONE (04:32)
[2017-08-27] MEDS ORDERED: Enoxaparin 100 MG/1 ML Syringe SUBCUT ONE (04:34)
[2017-08-27] MEDS ORDERED: Morphine 10 MG/ML Syringe IVPUSH PRN (07:25)
[2017-08-27] MEDS ORDERED: Ondansetron 4 MG/2 ML SDV IVPUSH PRN (07:25)
--- NOTE | 2017-08-27 07:43 | PCM.HP ---
H&P History of Present Illness - General Admit Problem/Dx: Admission Diagnosis/Problem Admission Diagnosis/Problem Acute respiratory failure - History of Present Illness Initial Comments - Free Text/Narative: 56 yo female [facility] resident with history of CVA, atrial fibrillation, CAD s/p PCI, HTN, CKD, anasarca who presents to the ED in acute hypoxic respiratory failure. Patient was placed on BIPAP in the ED due to respiratory distress. She was found to be in atrial fibrillation with heart rate in 130s-170s. CXR reported pulmonary vascular congestion and left basilar consolidation. Patient is lethargic but martinez shake head yes and no. She shakes head no when asked if she is in any pain. She will squeeze right hand on command. I spoke to the patient's son Alesha Davidson who does agree with admission but states the goals of care should be palliative and comfort care. Patient is DNR/DNI according to [place] records. - Related Data Allergies/Adverse Reactions: Allergies Allergy/AdvReac Type Severity Reaction Status Date / Time kaylah inhibitor Allergy Airway Uncoded 08/27/17 03:49 Tightness Home Medications: Home Meds Levothyroxine [Synthroid] 50 mcg PO SUTUTHSA@0700 02/18/15 [History] Multivit-Min/FA/Lycopene/Lut [Complete Multi 50+] 1 tab PO DAILY 02/18/15 [ History] atorvaSTATin [Lipitor] 40 mg PO BEDTIME 02/18/15 [History] metFORMIN [Glucophage] 500 mg PO BID 02/18/15 [History] Albuterol Sulfate [Proair Hfa] 2 puff IH QID PRN 10/16/16 [History] Dulaglutide [Trulicity] 0.75 mg SQ TU@2100 10/16/16 [History] Glimepiride [Amaryl] 2 mg PO WITHBREAKFAST 10/16/16 [History] Insulin Glarg,Human.Rec.Analog [LantUS Solostar] 22 units SUBCUT BEDTIME [History] PARoxetine HCl [Paroxetine HCl] 40 mg PO DAILY 10/16/16 [History] cloNIDine 0.3 mg TD .ON FRIDAYS @0900 10/16/16 [History] Polyethylene Glycol 3350 [MiraLAX] 17 gm PO DAILY PRN #10 packet 10/21/16 [Rx] Ferrous Sulfate 325 mg PO DAILY 03/05/17 [History] Prednisone [IJD: Prednisone] 7.5 mg PO DAILY 04/02/17 [History] Ascorbic Acid 1,000 mg PO DAILY 04/20/17 [History] Aspirin 325 mg PO DAILY 04/20/17 [History] Rivaroxaban [Xarelto] 15 mg PO DAILY 04/20/17 [History] Levothyroxine 75 mcg PO MOWEFR 05/28/17 [History] Albuterol/Ipratropium [DuoNeb 3.0-0.5 MG/3 ML] 3 ml NEB Q4H PRN 06/12/17 [ History] Fluticasone/Vilanterol [Breo Ellipta 100-25 MCG Inhalation Kit] 1 puff INH DAILY 06/12/17 [History] Insulin Aspart [NovoLOG] See Protocol SUBCUT ASDIRECTED 06/12/17 [History] Mirtazapine [Remeron] 45 mg PO BEDTIME 06/12/17 [History] Diltiazem [Cardizem CD] 120 mg PO BID #60 cap.cd 06/17/17 [Rx] Furosemide [Lasix] 40 mg PO BID #30 tablet 06/17/17 [Rx] Metoprolol Tartrate [Lopressor] 100 mg PO TID #40 tablet 06/17/17 [Rx] Temazepam [Restoril] 15 mg PO BEDTIME #10 cap 06/17/17 [Rx] fentaNYL [Duragesic] 25 mcg TRDERM Q72H #7 patch 06/17/17 [Rx] Past Medical History - Past Health History Medical/Surgical History: Denies Medical/Surgical History HEENT History: Reports: None Cardiovascular History: Reports: Afib, CAD, High Cholesterol, Hypertension, [place] Other Cardiovascular History: atherosclerotic heart dse without angina; Respiratory History: Reports: Asthma, COPD, Other (See Below) Other Respiratory History: Hypoxemia; chronic respiratory failure, unspecified wether hypoxia or hypercapnea Gastrointestinal History: Reports: Gastritis Other Gastrointestinal History: acquired absence of spleen; non-specific gastroenteritis and colitis Genitourinary History: Reports: Acute Renal Failure, Chronic Renal Insuffiency, UTI, Recurrent PEDIATRIC REGISTERED NURSE History: Reports: None Musculoskeletal History: Reports: Fracture, Osteoporosis, Other (See Below) Other Musculoskeletal History: Restless Leg Syndrome, Hemiplegia and hemiparesis post CVA, frequent falls; polymyalgia rheumatica; facial weakness following cerebral infarction Neurological History: Reports: CVA, Other (See Below) Other Neuro History: "3 strokes" Psychiatric History: Reports: Anxiety, Depression Endocrine/Metabolic History: Reports: Diabetes, Type II, Hypothyroidism, Osteoporosis Other Endocrine/Metabolic History: senior living use of insulin Hematologic History: Reports: Anticoagulation Therapy Immunologic History: Reports: None Oncologic (Cancer) History: Reports: None Dermatologic History: Reports: Other (See Below) Other Dermatologic History: chronic open wound to right foot, open area to Left forearm, redness to sacrum - Infectious Disease History Infectious Disease History: Reports: None - Past Surgical History Cardiovascular Surgical History: Reports: None Respiratory Surgical History: Reports: None Female Surgical History: Reports: None Endocrine Surgical History: Reports: None Neurological Surgical History: Reports: None Musculoskeletal Surgical History: Reports: None Social & Family History - Family History Family Medical History: Noncontributory - Tobacco Use Smoking Status *Q: Never Smoker Second Hand Smoke Exposure: No - Caffeine Use Caffeine Use: Reports: Coffee - Recreational Drug Use Recreational Drug Use: No Drug Use in Last 12 Months: No Recreational Drug Type: Reports: Marijuana/Hashish Other Recreational Drug Type: Patient reports "smoking pot" today Recreational Drug Use Frequency: Daily - Living Situation & Occupation Living situation: Reports: Extended Care Facility H&P Review of Systems - Review of Systems: Review Of Systems: Unable To Obtain Exam - Exam Exam: See Below - Vital Signs Vital Signs: Last Vital Signs Temp 36.1 C 08/27/17 03:37 Pulse 150 H 08/27/17 06:45 Resp 10 L 08/27/17 04:39 BP 141/89 H 08/27/17 06:45 Pulse Ox 91 L 08/27/17 05:01 Weight: 116.9 kg - Exam General: Lethargic Neck: Supple Lungs: Decreased Breath Sounds. No: Rhonchi, Wheezing Cardiovascular: Irregular Rhythm, Tachycardia GI/Abdominal Exam: Soft, Non-Tender Extremities: Pedal Edema (+2 edema up to abdomen) Skin: Warm, Dry, Intact - Patient Data Result Diagrams: 08/28/17 06:26 08/28/17 06:26 *Q Meaningful Use (ADM) - VTE *Q VTE Criteria *Q: - Stroke *Q Stroke Criteria *Q: - AMI *Q AMI Criteria *Q: Problem List Initiated/Reviewed/Updated: Yes Orders Last 24hrs: Active Orders 24 hr Category Date Time Status Antiembolic Devices [RC] PER UNIT ROUTINE Care 08/27/17 07:27 Ordered Oxygen Therapy [RC] PRN Care 08/27/17 07:25 Ordered VTE/DVT Education [RC] PER UNIT ROUTINE Care 08/27/17 07:25 Ordered Vital Signs [RC] Q4H Care 08/27/17 07:25 Ordered BASIC METABOLIC PANEL,BMP [CHEM] AM Lab 08/28/17 05:11 Ordered BASIC METABOLIC PANEL,BMP [CHEM] AM Lab 08/29/17 05:11 Ordered CBC WITH AUTO DIFF [HEME] AM Lab 08/28/17 05:11 Ordered CBC WITH AUTO DIFF [HEME] AM Lab 08/29/17 05:11 Ordered Enoxaparin [Lovenox] Med 08/28/17 09:00 Ordered 40 mg SUBCUT DAILY Levofloxacin/Dextrose 5%-Water [Levaquin in D5W 750 MG/ Med 08/27/17 07:30 Ordered 150 ML] 750 mg Premix Bag 1 bag IV Q24H Morphine Med 08/27/17 07:25 Ordered 2 mg IVPUSH Q2H PRN Ondansetron [Zofran] Med 08/27/17 07:25 Ordered 4 mg IVPUSH Q4H PRN Vancomycin Pharmacy to Dose [Pharmacy to Dose - Med 08/27/17 07:30 Ordered Vancomycin] 1 dose .XX ASDIRECTED Sequential Compression Device [OM.PC] Per Unit Routine Oth 08/27/17 07:26 Ordered Resuscitation Status Routine Resus Stat 08/27/17 07:25 Ordered Medication Orders Enoxaparin Sodium (Lovenox) 40 mg SUBCUT DAILY [facility] Levofloxacin/Dextrose 750 mg/ (Premix) 150 mls @ 100 mls/hr IV Q24H [facility] Morphine Sulfate (Morphine) 2 mg IVPUSH Q2H PRN PRN Reason: Pain (severe 7-10) Stop: 08/28/17 07:27 Ondansetron HCl (Zofran) 4 mg IVPUSH Q4H PRN PRN Reason: Nausea Sodium Chloride (Saline Flush) 10 ml FLUSH ASDIRECTED PRN PRN Reason: Keep Vein Open Sodium Chloride (Saline Flush) 2.5 ml FLUSH ASDIRECTED PRN PRN Reason: Keep Vein Open Vancomycin HCl (Pharmacy To Dose - Vancomycin) 1 dose .XX ASDIRECTED [facility] Assessment/Plan Comment:: 56 yo female with pmh of CVA, atrial fibrillation, CAD DM, HTN who presents with acute hypoxic failure, CHF exacerbation, pneumonia, and UTI Acute hypoxic respiratory failure: patient on BIPAP, we will try diruresing with lasix Health care associated pneumonia/UTI: vancomycin, zosyn, levaquin, blood and urine cultures Atrial fibrillation with RVR: IV diltiazem as needed Acute on chronic kidney disease: creatinine 1.9 DM: accuchecks q6hrs Goals of care are palliative, If patient does not respond to medical therapy will transition to comfort measures only.
[2017-08-27] MEDS ORDERED: 50% Dextrose in Water 50 ML Syringe IVPUSH ONE (08:11)
[2017-08-27] MEDS: Insulin Aspart 100 Units/ML 3 ML Pen SUBCUT SCH ×3 (08:35→20:03)
[2017-08-27] MEDS: Levofloxacin/Dextrose 5%-Water 750 MG in Premix Bag 1 BAG IV SCH (09:04)
[2017-08-27] MEDS: Furosemide 20 MG/2 ML VIAL IVPUSH SCH ×2 (09:04→20:20)
[2017-08-27] MEDS: Dextrose 5% in Water 1,000 ML IV SCH ×2 (09:04→22:59)
[2017-08-27] MEDS: Diltiazem 25 MG/5 ML SDV IVPUSH PRN ×3 (10:30→20:20)
[2017-08-28] MEDS: Insulin Aspart 100 Units/ML 3 ML Pen SUBCUT SCH ×3 (01:07→17:30)
[2017-08-28] MEDS: Diltiazem 25 MG/5 ML SDV IVPUSH PRN ×3 (01:51→12:24)
[2017-08-28] MEDS: Furosemide 20 MG/2 ML VIAL IVPUSH SCH ×2 (08:10→20:15)
[2017-08-28] MEDS: Enoxaparin 40 MG/0.4 ML Syringe SUBCUT SCH (08:10)
[2017-08-28] MEDS: Levofloxacin/Dextrose 5%-Water 750 MG in Premix Bag 1 BAG IV SCH (08:10)
--- NOTE | 2017-08-28 12:08 | PCM.PN ---
- Review of Systems Systems Review Comment:: more awake today, denies pain - Patient Data Vitals - Most Recent: Last Vital Signs Temp 36.5 C 08/28/17 04:00 Pulse 139 H 08/28/17 11:00 Resp 25 H 08/28/17 11:00 BP 126/88 08/28/17 11:00 Pulse Ox 99 08/28/17 11:00 Weight - Most Recent: 116.9 kg I&O - Last 24 Hours: Intake & Output 08/27/17 08/28/17 08/28/17 22:59 06:59 14:59 Intake Total 1054 877 Output Total 800 775 Balance 254 102 Lab Results Last 24 Hours: Laboratory Results - last 24 hr 08/27/17 08/27/17 08/27/17 Range/Units 14:29 15:52 20:00 WBC (4.0-11.0) K/uL RBC (4.30-5.90) M/uL Hgb (12.0-16.0) g/dL Hct (36.0-46.0) % MCV (80.0-98.0) fL MCH (27.0-32.0) pg MCHC (31.0-37.0) g/dL RDW Std Deviation (28.0-62.0) fl RDW Coeff of Leia (11.0-15.0) % Plt Count (150-400) K/uL MPV (7.40-12.00) fL Add Manual Diff Neutrophils % (Manual) (48.0-80.0) % Lymphocytes % (Manual) (16.0-40.0) % Monocytes % (Manual) (0.0-15.0) % Eosinophils % (Manual) (0.0-7.0) % Basophils % (Manual) (0.0-1.5) % Nucleated RBC % /100WBC Absolute Seg Neuts (1.4-5.7) Lymphocytes # (Manual) (0.6-2.4) Monocytes # (Manual) (0.0-0.8) Eosinophils # (Manual) (0.0-0.7) Basophils # (Manual) (0.0-0.1) Nucleated RBCs # K/uL Sodium 148 H (136-146) mmol/L Potassium 3.9 (3.5-5.1) mmol/L Chloride 96 L (98-110) mmol/L Carbon Dioxide 39 H (21-31) mmol/L BUN 69 H (6.0-23.0) mg/dL Creatinine 1.8 H (0.6-1.5) mg/dL Est Cr Clr Drug Dosing 29.06 mL/min Estimated GFR (MDRD) 28.8 ml/min Glucose 136 H (60-110) mg/dL POC Glucose 136 H 130 H (60-110) mg/dL Calcium 8.5 L (8.8-10.8) mg/dL 08/28/17 08/28/17 08/28/17 Range/Units 00:45 06:26 06:26 WBC 14.45 H (4.0-11.0) K/uL RBC 3.90 L (4.30-5.90) M/uL Hgb 10.2 L (12.0-16.0) g/dL Hct 35.5 L (36.0-46.0) % MCV 91.0 (80.0-98.0) fL MCH 26.2 L (27.0-32.0) pg MCHC 28.7 L (31.0-37.0) g/dL RDW Std Deviation 57.6 (28.0-62.0) fl RDW Coeff of Leia 18 H (11.0-15.0) % Plt Count 331 (150-400) K/uL MPV 12.00 (7.40-12.00) fL Add Manual Diff YES Neutrophils % (Manual) 80 (48.0-80.0) % Lymphocytes % (Manual) 10 L (16.0-40.0) % Monocytes % (Manual) 7 (0.0-15.0) % Eosinophils % (Manual) 1 (0.0-7.0) % Basophils % (Manual) 2 H (0.0-1.5) % Nucleated RBC % 0.0 /100WBC Absolute Seg Neuts 11.6 H (1.4-5.7) Lymphocytes # (Manual) 1.4 (0.6-2.4) Monocytes # (Manual) 1.0 H (0.0-0.8) Eosinophils # (Manual) 0.1 (0.0-0.7) Basophils # (Manual) 0.3 H (0.0-0.1) Nucleated RBCs # 0 K/uL Sodium 149 H (136-146) mmol/L Potassium 4.5 (3.5-5.1) mmol/L Chloride 96 L (98-110) mmol/L Carbon Dioxide 39 H (21-31) mmol/L BUN 69 H (6.0-23.0) mg/dL Creatinine 1.7 H (0.6-1.5) mg/dL Est Cr Clr Drug Dosing 30.99 mL/min Estimated GFR (MDRD) 30.8 ml/min Glucose 137 H (60-110) mg/dL POC Glucose 139 H (60-110) mg/dL Calcium 8.5 L (8.8-10.8) mg/dL 08/28/17 Range/Units 08:14 WBC (4.0-11.0) K/uL RBC (4.30-5.90) M/uL Hgb (12.0-16.0) g/dL Hct (36.0-46.0) % MCV (80.0-98.0) fL MCH (27.0-32.0) pg MCHC (31.0-37.0) g/dL RDW Std Deviation (28.0-62.0) fl RDW Coeff of Leia (11.0-15.0) % Plt Count (150-400) K/uL MPV (7.40-12.00) fL Add Manual Diff Neutrophils % (Manual) (48.0-80.0) % Lymphocytes % (Manual) (16.0-40.0) % Monocytes % (Manual) (0.0-15.0) % Eosinophils % (Manual) (0.0-7.0) % Basophils % (Manual) (0.0-1.5) % Nucleated RBC % /100WBC Absolute Seg Neuts (1.4-5.7) Lymphocytes # (Manual) (0.6-2.4) Monocytes # (Manual) (0.0-0.8) Eosinophils # (Manual) (0.0-0.7) Basophils # (Manual) (0.0-0.1) Nucleated RBCs # K/uL Sodium (136-146) mmol/L Potassium (3.5-5.1) mmol/L Chloride (98-110) mmol/L Carbon Dioxide (21-31) mmol/L BUN (6.0-23.0) mg/dL Creatinine (0.6-1.5) mg/dL Est Cr Clr Drug Dosing mL/min Estimated GFR (MDRD) ml/min Glucose (60-110) mg/dL POC Glucose 148 H (60-110) mg/dL Calcium (8.8-10.8) mg/dL Med Orders - Current: Current Medications Diltiazem HCl (Diltiazem) 10 mg IVPUSH Q4HR PRN PRN Reason: Arrhythmia Last Admin: 08/28/17 05:51 Dose: 10 mg Enoxaparin Sodium (Lovenox) 40 mg SUBCUT DAILY [facility] Last Admin: 08/28/17 08:10 Dose: 40 mg Furosemide (Lasix) 80 mg IVPUSH BID [facility] Last Admin: 08/28/17 08:10 Dose: 80 mg Levofloxacin/Dextrose 750 mg/ (Premix) 150 mls @ 100 mls/hr IV Q24H [facility] Last Admin: 08/28/17 08:10 Dose: 100 mls/hr Dextrose/Water (Dextrose 5% In Water) 1,000 mls @ 75 mls/hr IV ASDIRECTED [facility] Last Admin: 08/27/17 22:59 Dose: 75 mls/hr Vancomycin HCl 1,750 mg/ (Sodium Chloride) 500 mls @ 250 mls/hr IV Q24H [facility] Last Admin: 08/28/17 11:01 Dose: 250 mls/hr Insulin Aspart (Novolog) 0 unit SUBCUT Q6H [facility] PRN Reason: Protocol Last Admin: 08/28/17 08:20 Dose: Not Given Levalbuterol HCl (Xopenex) 0.63 mg NEB Q4HRRT PRN PRN Reason: Shortness of Breath Ondansetron HCl (Zofran) 4 mg IVPUSH Q4H PRN PRN Reason: Nausea Sodium Chloride (Saline Flush) 10 ml FLUSH ASDIRECTED PRN PRN Reason: Keep Vein Open Sodium Chloride (Saline Flush) 2.5 ml FLUSH ASDIRECTED PRN PRN Reason: Keep Vein Open Vancomycin HCl (Pharmacy To Dose - Vancomycin) 1 dose .XX ASDIRECTED [facility] Discontinued Medications Dextrose/Water (Dextrose 50% In Water) 50 ml IVPUSH ONETIME ONE Stop: 08/27/17 08:12 Last Admin: 08/27/17 08:43 Dose: 50 ml Diltiazem HCl (Diltiazem) 10 mg IVPUSH ONETIME ONE Stop: 08/27/17 04:20 Last Admin: 08/27/17 04:26 Dose: 10 mg Diltiazem HCl (Diltiazem) 10 mg IVPUSH ONETIME ONE Stop: 08/27/17 06:53 Last Admin: 08/27/17 07:03 Dose: 10 mg Enoxaparin Sodium (Lovenox) 100 mg SUBCUT ONETIME ONE Stop: 08/27/17 04:35 Last Admin: 08/27/17 04:38 Dose: 100 mg Furosemide (Lasix) 60 mg IVPUSH NOW ONE Stop: 08/27/17 04:32 Last Admin: 08/27/17 04:33 Dose: 60 mg Furosemide (Lasix) Confirm Administered Dose 80 mg .ROUTE .STK-MED ONE Stop: 08/27/17 04:33 Last Admin: 08/27/17 05:11 Dose: Not Given Piperacillin Sod/Tazobactam (Sod 3.375 gm/ Sodium Chloride) 50 mls @ 100 mls/ hr IV ONETIME ONE Stop: 08/27/17 04:47 Last Admin: 08/27/17 04:28 Dose: 100 mls/hr Morphine Sulfate (Morphine) 2 mg IVPUSH Q2H PRN PRN Reason: Pain (severe 7-10) Stop: 08/28/17 07:27 - Exam General: Alert, Oriented Lungs: Decreased Breath Sounds Cardiovascular: Irregular Rhythm, Tachycardia Extremities: Pedal Edema (+2 edema to legs abdomen and hands) Skin: Warm, Dry, Intact - Problem List Review Problem List Initiated/Reviewed/Updated: Yes - My Orders Last 24 Hours: My Active Orders 08/28/17 09:00 Enoxaparin [Lovenox] 40 mg SUBCUT DAILY 08/29/17 05:11 BASIC METABOLIC PANEL,BMP [CHEM] AM CBC WITH AUTO DIFF [HEME] AM 08/29/17 09:30 VANCOMYCIN TROUGH [CHEM] Routine - Plan Plan:: 56 yo female with pmh of CVA, atrial fibrillation, CAD DM, HTN who presents with acute hypoxic failure, CHF exacerbation, pneumonia, and UTI Acute hypoxic respiratory failure: patient on BIPAP will wean as tolerated CHF exacerbation: continue diuresis with lasix [facility] care associated pneumonia/UTI: vancomycin, zosyn, levaquin, blood and urine cultures Hyponatremia: on D5W Atrial fibrillation with RVR: IV diltiazem as needed Acute on chronic kidney disease: creatinine 1.7 DM: accuchecks TID Goals of care are palliative, If patient does not respond to medical therapy will transition to comfort measures only.
[2017-08-28] MEDS ORDERED: Metoprolol Tartrate 5 MG/5 ML SDV IVPUSH ONE ×2 (14:32→17:11)
[2017-08-28] MEDS ORDERED: Amiodarone In Dextrose,Iso-Osm 150 MG in Premix Bag 1 BAG IV ONE ×2 (15:45)
--- NOTE | 2017-08-28 16:35 | PCM.SN ---
- Free Text/Narrative Note: Requested by tooling supervisor to start peripheral IV on a patient with known IV starting difficulties. Patient is very [place] BMI and is swollen. She is known to have needed central IV insertion in her past medical history. She has IV antibiotic drip via right 20ga. ACF site and requires another. I utilized a ultrasound approach in the left ACF and obtained blood flash back, however the tip of the IV catheter was dislodged by adipose depth and became extra vascular. I attempted cannulation of same vein however more proximal above the ACF, obtained blood flash, cannulated the vein and then the same thing happened. It became extravascular. There are no long IV catheters available. I attempted a total of 4 times, unable to start IV drip I requested the INNER TUBE CUTTER to notify referring physician of this situation. I'll be available to help if needed when requested.
[2017-08-28] MEDS ORDERED: Amiodarone 200 MG Tab PO SCH (17:00)
[2017-08-28] MEDS: Amiodarone 200 MG Tab PO SCH (17:25)
[2017-08-28] MEDS: Dextrose 5% in Water 1,000 ML IV SCH (18:54)
[2017-08-28] MEDS: Melatonin 3 MG Tab PO PRN (22:30)
[2017-08-29] MEDS: Amiodarone 200 MG Tab PO SCH ×3 (01:02→18:21)
[2017-08-29] MEDS: Insulin Aspart 100 Units/ML 3 ML Pen SUBCUT SCH ×3 (06:31→18:19)
[2017-08-29] MEDS ORDERED: Potassium Chloride 20 MEQ Tab.ER PO ONE ×3 (06:40→13:57)
[2017-08-29] MEDS ORDERED: Magnesium Sulfate/Water 4 GM in Premix Bag 1 BAG IV ONE (07:55)
[2017-08-29] MEDS: Levofloxacin/Dextrose 5%-Water 750 MG in Premix Bag 1 BAG IV SCH (08:20)
[2017-08-29] MEDS: Cefepime 1 GM in Premix Bag 1 BAG IV SCH ×2 (08:26→20:07)
[2017-08-29] MEDS: Enoxaparin 40 MG/0.4 ML Syringe SUBCUT SCH (08:26)
[2017-08-29] MEDS: Furosemide 20 MG/2 ML VIAL IVPUSH SCH (08:27)
[2017-08-29] MEDS: Dextrose 5% in Water 1,000 ML IV SCH (08:40)
--- NOTE | 2017-08-29 10:13 | PCM.PN ---
- Review of Systems Systems Review Comment:: feeling better, - Patient Data Vitals - Most Recent: Last Vital Signs Temp 36.1 C 08/29/17 08:00 Pulse 146 H 08/29/17 09:00 Resp 18 08/29/17 09:00 BP 138/78 08/29/17 09:00 Pulse Ox 94 L 08/29/17 09:00 Weight - Most Recent: 110.677 kg I&O - Last 24 Hours: Intake & Output 08/28/17 08/29/17 08/29/17 22:59 06:59 14:59 Intake Total 600 1708 50 Output Total 1700 1400 Balance -1100 308 50 Lab Results Last 24 Hours: Laboratory Results - last 24 hr 08/28/17 08/28/17 08/29/17 Range/Units 12:27 17:29 05:23 WBC 11.07 H (4.0-11.0) K/uL RBC 3.86 L (4.30-5.90) M/uL Hgb 9.9 L (12.0-16.0) g/dL Hct 34.6 L (36.0-46.0) % MCV 89.6 (80.0-98.0) fL MCH 25.6 L (27.0-32.0) pg MCHC 28.6 L (31.0-37.0) g/dL RDW Std Deviation 57.1 (28.0-62.0) fl RDW Coeff of Leia 18 H (11.0-15.0) % Plt Count 381 (150-400) K/uL MPV 12.10 H (7.40-12.00) fL Neut % (Auto) 78.1 (48.0-80.0) % Lymph % (Auto) 9.3 L (16.0-40.0) % Dyer % (Auto) 10.1 (0.0-15.0) % Eos % (Auto) 2.3 (0.0-7.0) % Baso % (Auto) 0.2 (0.0-1.5) % Neut # (Auto) 8.7 H (1.4-5.7) K/uL Lymph # (Auto) 1.0 (0.6-2.4) K/uL Dyer # (Auto) 1.1 H (0.0-0.8) K/uL Eos # (Auto) 0.3 (0.0-0.7) K/uL Baso # (Auto) 0.0 (0.0-0.1) K/uL Nucleated RBC % 0.9 /100WBC Nucleated RBCs # 0 K/uL Sodium (136-146) mmol/L Potassium (3.5-5.1) mmol/L Chloride (98-110) mmol/L Carbon Dioxide (21-31) mmol/L BUN (6.0-23.0) mg/dL Creatinine (0.6-1.5) mg/dL Est Cr Clr Drug Dosing mL/min Estimated GFR (MDRD) ml/min Glucose (60-110) mg/dL POC Glucose 159 H 194 H (60-110) mg/dL Calcium (8.8-10.8) mg/dL Magnesium (1.5-2.3) mEq/L 08/29/17 08/29/17 08/29/17 Range/Units 05:23 05:23 05:23 WBC (4.0-11.0) K/uL RBC (4.30-5.90) M/uL Hgb (12.0-16.0) g/dL Hct (36.0-46.0) % MCV (80.0-98.0) fL MCH (27.0-32.0) pg MCHC (31.0-37.0) g/dL RDW Std Deviation (28.0-62.0) fl RDW Coeff of Leia (11.0-15.0) % Plt Count (150-400) K/uL MPV (7.40-12.00) fL Neut % (Auto) (48.0-80.0) % Lymph % (Auto) (16.0-40.0) % Dyer % (Auto) (0.0-15.0) % Eos % (Auto) (0.0-7.0) % Baso % (Auto) (0.0-1.5) % Neut # (Auto) (1.4-5.7) K/uL Lymph # (Auto) (0.6-2.4) K/uL Dyer # (Auto) (0.0-0.8) K/uL Eos # (Auto) (0.0-0.7) K/uL Baso # (Auto) (0.0-0.1) K/uL Nucleated RBC % /100WBC Nucleated RBCs # K/uL Sodium 146 (136-146) mmol/L Potassium 2.5 L (3.5-5.1) mmol/L Chloride 92 L (98-110) mmol/L Carbon Dioxide 40 H (21-31) mmol/L BUN 55 H (6.0-23.0) mg/dL Creatinine 1.6 H (0.6-1.5) mg/dL Est Cr Clr Drug Dosing 32.93 mL/min Estimated GFR (MDRD) 33.0 ml/min Glucose 231 H (60-110) mg/dL POC Glucose 213 H (60-110) mg/dL Calcium 8.5 L (8.8-10.8) mg/dL Magnesium 1.1 L (1.5-2.3) mEq/L Med Orders - Current: Current Medications Amiodarone HCl (Cordarone) 200 mg PO Q8H [facility] Last Admin: 08/29/17 01:02 Dose: 200 mg Enoxaparin Sodium (Lovenox) 40 mg SUBCUT DAILY [facility] Last Admin: 08/29/17 08:26 Dose: 40 mg Vancomycin HCl 1,750 mg/ (Sodium Chloride) 500 mls @ 250 mls/hr IV Q24H [facility] Last Admin: 08/28/17 11:01 Dose: 250 mls/hr Magnesium Sulfate 4 gm/ Premix 100 mls @ 25 mls/hr IV ONETIME ONE Stop: 08/29/17 11:54 Last Admin: 08/29/17 09:26 Dose: 25 mls/hr Cefepime HCl 1 gm/ Premix 50 mls @ 100 mls/hr IV Q12H [facility] Last Admin: 08/29/17 08:26 Dose: 100 mls/hr Insulin Aspart (Novolog) 0 unit SUBCUT TIDAC [facility] PRN Reason: Protocol Last Admin: 08/29/17 06:31 Dose: 2 unit Levalbuterol HCl (Xopenex) 0.63 mg NEB Q4HRRT PRN PRN Reason: Shortness of Breath Melatonin (Melatonin) 3 mg PO BEDTIME PRN PRN Reason: Other Last Admin: 08/28/17 22:30 Dose: 3 mg Ondansetron HCl (Zofran) 4 mg IVPUSH Q4H PRN PRN Reason: Nausea Sodium Chloride (Saline Flush) 10 ml FLUSH ASDIRECTED PRN PRN Reason: Keep Vein Open Sodium Chloride (Saline Flush) 2.5 ml FLUSH ASDIRECTED PRN PRN Reason: Keep Vein Open Vancomycin HCl (Pharmacy To Dose - Vancomycin) 1 dose .XX ASDIRECTED [facility] Discontinued Medications Amiodarone HCl (Cordarone) 200 mg PO Q6H [facility] Last Admin: 08/28/17 18:10 Dose: Not Given Dextrose/Water (Dextrose 50% In Water) 50 ml IVPUSH ONETIME ONE Stop: 08/27/17 08:12 Last Admin: 08/27/17 08:43 Dose: 50 ml Diltiazem HCl (Diltiazem) 10 mg IVPUSH ONETIME ONE Stop: 08/27/17 04:20 Last Admin: 08/27/17 04:26 Dose: 10 mg Diltiazem HCl (Diltiazem) 10 mg IVPUSH ONETIME ONE Stop: 08/27/17 06:53 Last Admin: 08/27/17 07:03 Dose: 10 mg Diltiazem HCl (Diltiazem) 10 mg IVPUSH Q4HR PRN PRN Reason: Arrhythmia Last Admin: 08/28/17 12:24 Dose: 10 mg Enoxaparin Sodium (Lovenox) 100 mg SUBCUT ONETIME ONE Stop: 08/27/17 04:35 Last Admin: 08/27/17 04:38 Dose: 100 mg Furosemide (Lasix) 60 mg IVPUSH NOW ONE Stop: 08/27/17 04:32 Last Admin: 08/27/17 04:33 Dose: 60 mg Furosemide (Lasix) Confirm Administered Dose 80 mg .ROUTE .STK-MED ONE Stop: 08/27/17 04:33 Last Admin: 08/27/17 05:11 Dose: Not Given Furosemide (Lasix) 80 mg IVPUSH BID [facility] Last Admin: 08/28/17 20:15 Dose: 80 mg Piperacillin Sod/Tazobactam (Sod 3.375 gm/ Sodium Chloride) 50 mls @ 100 mls/ hr IV ONETIME ONE Stop: 08/27/17 04:47 Last Admin: 08/27/17 04:28 Dose: 100 mls/hr Levofloxacin/Dextrose 750 mg/ (Premix) 150 mls @ 100 mls/hr IV Q24H [facility] Last Admin: 08/29/17 08:20 Dose: Not Given Dextrose/Water (Dextrose 5% In Water) 1,000 mls @ 75 mls/hr IV ASDIRECTED [facility] Last Admin: 08/29/17 08:40 Dose: 75 mls/hr Amiodarone HCl/Dextrose (Nexterone In Dextrose 360 Mg/200 Ml) 360 mg in 200 mls @ 33.333 mls/hr IV ASDIRECTED ADRIAN; 1 MG/MIN PRN Reason: Protocol Amiodarone HCl/Dextrose 150 mg (/ Premix) 100 mls @ 600 mls/hr IV ASDIRECTED ONE Stop: 08/28/17 15:54 Last Admin: 08/28/17 17:51 Dose: Not Given Metoprolol Tartrate 10 mg/ (Sodium Chloride) 60 mls @ 100 mls/hr IV ONETIME ONE Stop: 08/28/17 17:31 Last Admin: 08/28/17 17:11 Dose: Not Given Insulin Aspart (Novolog) 0 unit SUBCUT Q6H [facility] PRN Reason: Protocol Last Admin: 08/28/17 08:20 Dose: Not Given Metoprolol Tartrate (Lopressor) 5 mg IVPUSH ONETIME ONE Stop: 08/28/17 14:33 Last Admin: 08/28/17 15:00 Dose: 5 mg Metoprolol Tartrate (Lopressor) 10 mg IVPUSH ONETIME ONE Stop: 08/28/17 17:12 Last Admin: 08/28/17 17:24 Dose: 10 mg Morphine Sulfate (Morphine) 2 mg IVPUSH Q2H PRN PRN Reason: Pain (severe 7-10) Stop: 08/28/17 07:27 Potassium Chloride (Klor-Con M20) 40 meq PO ONETIME ONE Stop: 08/29/17 06:41 Last Admin: 08/29/17 06:52 Dose: 40 meq Potassium Chloride (Klor-Con M20) 40 meq PO ONETIME ONE Stop: 08/29/17 07:58 - Exam General: Cooperative, No Acute Distress Lungs: Clear to Auscultation, Normal Respiratory Effort Cardiovascular: Regular Rate, Regular Rhythm GI/Abdominal Exam: Soft, Non-Tender Extremities: Pedal Edema (+2 edema) Skin: Warm, Dry, Intact - Problem List Review Problem List Initiated/Reviewed/Updated: Yes - My Orders Last 24 Hours: My Active Orders 08/28/17 17:00 Insulin Aspart [NovoLOG] See Protocol SUBCUT TIDAC 08/28/17 Dinner [employer] Diet [DIET] 08/29/17 09:30 VANCOMYCIN TROUGH [CHEM] Routine - Plan Plan:: 56 yo female with pmh of CVA, atrial fibrillation, CAD DM, HTN who presents with acute hypoxic failure, CHF exacerbation, pneumonia, and UTI Acute hypoxic respiratory failure: patient on BIPAP will wean as tolerated CHF exacerbation: lasix on hold due to hypokalemia Health care associated pneumonia/ecoli UTI: vancomycin, cefepime, d/c levaquin Hyponatremia: rsolved with stop d5w Atrial fibrillation with RVR: IV diltiazem as needed, loading with oral amiodarone Acute on chronic kidney disease: creatinine 1.6 hypokalemia/hypomagnesia: replacing DM: accuchecks TID DRN/DNI
--- NOTE | 2017-08-29 15:33 | CR ---
EXAM DATE: 08/27/17 PATIENT'S AGE: 57 Patient: COCO REILLY Facility: [place], [place] Site . Site : 1960 Study: XRay Chest [id number]/13/2018 4:10:12 AM Ordering Physician: Haseeb Arndt Final Report: INDICATION: Pain, shortness of breath TECHNIQUE: Chest radiograph one-view COMPARISON: 06/17/2017 FINDINGS: Severe degradation of image quality noted due to body habitus. Mediastinum: Mild cardiomegaly present without significant interval change. Mediastinal widening is present and likely due to small lung volumes and stable mediastinal lipomatosis. Lungs: Small lung volumes are present with pulmonary vascular congestion and mild perihilar edema. Mild left basilar atelectasis and consolidation seen. No sign of pleural effusion seen. No pneumothorax is identified. Bones and soft tissue: Unremarkable for age. IMPRESSION: 1. Small lung volumes are present with pulmonary vascular congestion and mild perihilar edema. Dictated by Drew Person MD @ 08/27/2017 4:14:10 AM Dictated by: Drew Person MD @ 08/27/2017 04:14:16 (Electronic Signature) Report Signed by Proxy. JOAO
[2017-08-29] MEDS: Diltiazem 100 MG in Sodium Chloride 0.9% 100 ML IV SCH (20:40)
[2017-08-30] MEDS: Melatonin 3 MG Tab PO PRN ×2 (01:14→23:11)
[2017-08-30] MEDS: Amiodarone 200 MG Tab PO SCH ×3 (01:14→17:39)
[2017-08-30] MEDS: Diltiazem 100 MG in Sodium Chloride 0.9% 100 ML IV SCH ×4 (03:59→20:29)
[2017-08-30] MEDS ORDERED: Potassium Chloride 20 MEQ Tab.ER PO ONE ×3 (04:06→21:46)
[2017-08-30] MEDS: Cefepime 1 GM in Premix Bag 1 BAG IV SCH ×2 (08:20→20:30)
[2017-08-30] MEDS: Insulin Aspart 100 Units/ML 3 ML Pen SUBCUT SCH ×3 (08:26→17:40)
[2017-08-30] MEDS: Enoxaparin 40 MG/0.4 ML Syringe SUBCUT SCH (08:28)
[2017-08-30] MEDS ORDERED: Lidocaine 2% 5 ML SDV ONE (08:53)
[2017-08-30] MEDS ORDERED: Digoxin 500 MCG/2 ML Amp IVPUSH ONE (11:34)
--- NOTE | 2017-08-30 12:49 | OR ---
SURGEON: MONET WALKER MD DATE OF PROCEDURE: 08/30/2017 PREOPERATIVE DIAGNOSIS: Difficult venous access, need for drips. POSTOPERATIVE DIAGNOSIS: Difficult venous access, need for drips. PROCEDURE PERFORMED: Right internal jugular central line placement. ANESTHESIA: Local. ESTIMATED BLOOD LOSS: 5 mL. COMPLICATIONS: None. INDICATIONS: The patient is a 57-year-old female, who was admitted with CHF and is on a Cardizem drip. She has a difficult IV access and the one IV that she has, has gone bad. Given the need for IV drips and venous access, the decision was made to place a central line. I discussed the procedure with the patient. She understands the risks, including bleeding, infection, or damage to the surrounding structures. The patient verbalized understanding and wishes to proceed. PROCEDURE IN DETAIL: The patient was met in her ICU bed. A time-out was completed confirming the patient's name, age, date of , allergies, and procedure to be performed. Ultrasound was brought in and I identified the vascular anatomy of the right side of the neck. The patient was then placed into a Trendelenburg position. The neck was prepped and draped in usual standard fashion. Using an ultrasound, I reconfirmed the vascular anatomy of the right side of the neck. Using ultrasound guidance, I passed a locating needle into the right internal jugular vein. A return of venous blood was obtained. A guidewire was then placed down into the vein and advanced without difficulty into the chest. The finder needle was removed and a small jorge alberto was made in the skin with an 11 blade to allow passage of the vascular dilator. A vascular dilator was used to dilate the tract into the right internal jugular vein. This was removed and a triple-lumen catheter was then placed over the guidewire to 18 cm at the skin. The guidewire was removed. Good venous return was obtained from all 3 ports. They were then flushed with injectable saline. The triple lumen was secured in place in 3 locations using 3-0 silk suture. Sterile dressings were applied. The patient tolerated the procedure well. A postoperative chest x-ray appeared normal with no evidence of any hemothorax, pneumothorax, or hemopericardium. TODD / COURTNEY /[id number]
[2017-08-30] MEDS ORDERED: Magnesium Sulfate/Water 2 GM in Premix Bag 1 BAG IV ONE (13:19)
[2017-08-30] MEDS ORDERED: Furosemide 40 MG/4 ML VIAL IVPUSH ONE (13:19)
--- NOTE | 2017-08-30 14:38 | PCM.PN ---
- General Info Date of Service: 08/30/17 Admission Dx/Problem (Free Text): 57-year-old female currently in the ICU for acute hypoxic respiratory failure secondary to CHF exacerbation, atrial fibrillation with RVR, pneumonia, urinary tract infection. Patient's morning at around states that she feels better. She had no specific complaints. She has been a difficult patient for IV access. It was initially decided to insert a PICC line for access, however, access to a provider to into the line was not available. Thus, a central line was placed today. Patient tolerated the procedure well. - Review of Systems General: Reports: Other (Negative review of systems except for history of present illness) - Patient Data Vitals - Most Recent: Last Vital Signs Temp 36.7 C 08/30/17 13:00 Pulse 146 H 08/30/17 11:40 Resp 28 H 08/30/17 13:00 BP 135/80 08/30/17 13:00 Pulse Ox 95 08/30/17 13:00 Weight - Most Recent: 107.864 kg I&O - Last 24 Hours: Intake & Output 08/29/17 08/30/17 08/30/17 22:59 06:59 14:59 Intake Total 265 500 100 Output Total 1050 Balance -785 500 100 Lab Results Last 24 Hours: Laboratory Results - last 24 hr 08/29/17 08/29/17 08/29/17 Range/Units 15:05 17:03 18:38 WBC (4.0-11.0) K/uL RBC (4.30-5.90) M/uL Hgb (12.0-16.0) g/dL Hct (36.0-46.0) % MCV (80.0-98.0) fL MCH (27.0-32.0) pg MCHC (31.0-37.0) g/dL RDW Std Deviation (28.0-62.0) fl RDW Coeff of Leia (11.0-15.0) % Plt Count (150-400) K/uL MPV (7.40-12.00) fL Neut % (Auto) (48.0-80.0) % Lymph % (Auto) (16.0-40.0) % [place] % (Auto) (0.0-15.0) % Eos % (Auto) (0.0-7.0) % Baso % (Auto) (0.0-1.5) % Neut # (Auto) (1.4-5.7) K/uL Lymph # (Auto) (0.6-2.4) K/uL [place] # (Auto) (0.0-0.8) K/uL Eos # (Auto) (0.0-0.7) K/uL Baso # (Auto) (0.0-0.1) K/uL Nucleated RBC % /100WBC Nucleated RBCs # K/uL Sodium (136-146) mmol/L Potassium 2.8 L 3.1 L (3.5-5.1) mmol/L Chloride (98-110) mmol/L Carbon Dioxide (21-31) mmol/L BUN (6.0-23.0) mg/dL Creatinine (0.6-1.5) mg/dL Est Cr Clr Drug Dosing mL/min Estimated GFR (MDRD) ml/min Glucose (60-110) mg/dL POC Glucose 244 H (60-110) mg/dL Calcium (8.8-10.8) mg/dL Magnesium 2.2 (1.5-2.3) mEq/L 08/30/17 08/30/17 08/30/17 Range/Units 06:16 08:11 11:30 WBC (4.0-11.0) K/uL RBC (4.30-5.90) M/uL Hgb (12.0-16.0) g/dL Hct (36.0-46.0) % MCV (80.0-98.0) fL MCH (27.0-32.0) pg MCHC (31.0-37.0) g/dL RDW Std Deviation (28.0-62.0) fl RDW Coeff of Leia (11.0-15.0) % Plt Count (150-400) K/uL MPV (7.40-12.00) fL Neut % (Auto) (48.0-80.0) % Lymph % (Auto) (16.0-40.0) % [place] % (Auto) (0.0-15.0) % Eos % (Auto) (0.0-7.0) % Baso % (Auto) (0.0-1.5) % Neut # (Auto) (1.4-5.7) K/uL Lymph # (Auto) (0.6-2.4) K/uL [place] # (Auto) (0.0-0.8) K/uL Eos # (Auto) (0.0-0.7) K/uL Baso # (Auto) (0.0-0.1) K/uL Nucleated RBC % /100WBC Nucleated RBCs # K/uL Sodium (136-146) mmol/L Potassium (3.5-5.1) mmol/L Chloride (98-110) mmol/L Carbon Dioxide (21-31) mmol/L BUN (6.0-23.0) mg/dL Creatinine (0.6-1.5) mg/dL Est Cr Clr Drug Dosing mL/min Estimated GFR (MDRD) ml/min Glucose (60-110) mg/dL POC Glucose 263 H 219 H 213 H (60-110) mg/dL Calcium (8.8-10.8) mg/dL Magnesium (1.5-2.3) mEq/L 08/30/17 08/30/17 08/30/17 Range/Units 11:48 11:48 11:48 WBC 12.17 H (4.0-11.0) K/uL RBC 3.73 L (4.30-5.90) M/uL Hgb 9.5 L (12.0-16.0) g/dL Hct 33.8 L (36.0-46.0) % MCV 90.6 (80.0-98.0) fL MCH 25.5 L (27.0-32.0) pg MCHC 28.1 L (31.0-37.0) g/dL RDW Std Deviation 58.2 (28.0-62.0) fl RDW Coeff of Leia 18 H (11.0-15.0) % Plt Count 425 H (150-400) K/uL MPV 10.80 (7.40-12.00) fL Neut % (Auto) 83.3 H (48.0-80.0) % Lymph % (Auto) 5.6 L (16.0-40.0) % [place] % (Auto) 9.5 (0.0-15.0) % Eos % (Auto) 1.4 (0.0-7.0) % Baso % (Auto) 0.2 (0.0-1.5) % Neut # (Auto) 10.1 H (1.4-5.7) K/uL Lymph # (Auto) 0.7 (0.6-2.4) K/uL [place] # (Auto) 1.2 H (0.0-0.8) K/uL Eos # (Auto) 0.2 (0.0-0.7) K/uL Baso # (Auto) 0.0 (0.0-0.1) K/uL Nucleated RBC % 0.7 /100WBC Nucleated RBCs # 0 K/uL Sodium 148 H (136-146) mmol/L Potassium 3.2 L (3.5-5.1) mmol/L Chloride 94 L (98-110) mmol/L Carbon Dioxide 42 H (21-31) mmol/L BUN 39 H (6.0-23.0) mg/dL Creatinine 1.4 (0.6-1.5) mg/dL Est Cr Clr Drug Dosing 37.63 mL/min Estimated GFR (MDRD) 38.5 ml/min Glucose 251 H (60-110) mg/dL POC Glucose (60-110) mg/dL Calcium 8.9 (8.8-10.8) mg/dL Magnesium 1.7 (1.5-2.3) mEq/L Med Orders - Current: Current Medications Amiodarone HCl (Cordarone) 200 mg PO Q8H [facility] Last Admin: 08/30/17 09:36 Dose: 200 mg Enoxaparin Sodium (Lovenox) 40 mg SUBCUT DAILY [facility] Last Admin: 08/30/17 08:28 Dose: 40 mg Cefepime HCl 1 gm/ Premix 50 mls @ 100 mls/hr IV Q12H [facility] Last Admin: 08/30/17 08:20 Dose: 100 mls/hr Vancomycin HCl 1,750 mg/ (Sodium Chloride) 500 mls @ 250 mls/hr IV Q36H [facility] Last Admin: 08/29/17 22:00 Dose: 250 mls/hr Diltiazem HCl 100 mg/ Sodium (Chloride) 100 mls @ 5 mls/hr IV TITRATE ADRIAN; 5 MG /HR PRN Reason: Protocol Last Admin: 08/30/17 10:24 Dose: 20 mg/hr, 20 mls/hr Insulin Aspart (Novolog) 0 unit SUBCUT TIDAC ADRIAN PRN Reason: Protocol Last Admin: 08/30/17 11:52 Dose: 4 unit Levalbuterol HCl (Xopenex) 0.63 mg NEB Q4HRRT PRN PRN Reason: Shortness of Breath Melatonin (Melatonin) 3 mg PO BEDTIME PRN PRN Reason: Other Last Admin: 08/30/17 01:14 Dose: 3 mg Ondansetron HCl (Zofran) 4 mg IVPUSH Q4H PRN PRN Reason: Nausea Sodium Chloride (Saline Flush) 10 ml FLUSH ASDIRECTED PRN PRN Reason: Keep Vein Open Sodium Chloride (Saline Flush) 2.5 ml FLUSH ASDIRECTED PRN PRN Reason: Keep Vein Open Sodium Chloride ([place] Nasal [place]) 1 ml [place] QID PRN PRN Reason: Congestion Vancomycin HCl (Pharmacy To Dose - Vancomycin) 1 dose .XX ASDIRECTED ADRIAN Discontinued Medications Amiodarone HCl (Cordarone) 200 mg PO Q6H ADRIAN Last Admin: 08/28/17 18:10 Dose: Not Given Dextrose/Water (Dextrose 50% In Water) 50 ml IVPUSH ONETIME ONE Stop: 08/27/17 08:12 Last Admin: 08/27/17 08:43 Dose: 50 ml Digoxin (Lanoxin) 250 mcg IVPUSH ONETIME ONE Stop: 08/30/17 11:35 Last Admin: 08/30/17 11:40 Dose: 250 mcg Diltiazem HCl (Diltiazem) 10 mg IVPUSH ONETIME ONE Stop: 08/27/17 04:20 Last Admin: 08/27/17 04:26 Dose: 10 mg Diltiazem HCl (Diltiazem) 10 mg IVPUSH ONETIME ONE Stop: 08/27/17 06:53 Last Admin: 08/27/17 07:03 Dose: 10 mg Diltiazem HCl (Diltiazem) 10 mg IVPUSH Q4HR PRN PRN Reason: Arrhythmia Last Admin: 08/28/17 12:24 Dose: 10 mg Enoxaparin Sodium (Lovenox) 100 mg SUBCUT ONETIME ONE Stop: 08/27/17 04:35 Last Admin: 08/27/17 04:38 Dose: 100 mg Furosemide (Lasix) 60 mg IVPUSH NOW ONE Stop: 08/27/17 04:32 Last Admin: 08/27/17 04:33 Dose: 60 mg Furosemide (Lasix) Confirm Administered Dose 80 mg .ROUTE .STK-MED ONE Stop: 08/27/17 04:33 Last Admin: 08/27/17 05:11 Dose: Not Given Furosemide (Lasix) 80 mg IVPUSH BID [facility] Last Admin: 08/28/17 20:15 Dose: 80 mg Furosemide (Lasix) 40 mg IVPUSH NOW ONE Stop: 08/30/17 13:20 Last Admin: 08/30/17 13:38 Dose: 40 mg Piperacillin Sod/Tazobactam (Sod 3.375 gm/ Sodium Chloride) 50 mls @ 100 mls/ hr IV ONETIME ONE Stop: 08/27/17 04:47 Last Admin: 08/27/17 04:28 Dose: 100 mls/hr Levofloxacin/Dextrose 750 mg/ (Premix) 150 mls @ 100 mls/hr IV Q24H [facility] Last Admin: 08/29/17 08:20 Dose: Not Given Dextrose/Water (Dextrose 5% In Water) 1,000 mls @ 75 mls/hr IV ASDIRECTED [facility] Last Admin: 08/29/17 08:40 Dose: 75 mls/hr Vancomycin HCl 1,750 mg/ (Sodium Chloride) 500 mls @ 250 mls/hr IV Q24H [facility] Last Admin: 08/29/17 13:07 Dose: Not Given Amiodarone HCl/Dextrose (Nexterone In Dextrose 360 Mg/200 Ml) 360 mg in 200 mls @ 33.333 mls/hr IV ASDIRECTED ADRIAN; 1 MG/MIN PRN Reason: Protocol Amiodarone HCl/Dextrose 150 mg (/ Premix) 100 mls @ 600 mls/hr IV ASDIRECTED ONE Stop: 08/28/17 15:54 Last Admin: 08/28/17 17:51 Dose: Not Given Metoprolol Tartrate 10 mg/ (Sodium Chloride) 60 mls @ 100 mls/hr IV ONETIME ONE Stop: 08/28/17 17:31 Last Admin: 08/28/17 17:11 Dose: Not Given Magnesium Sulfate 4 gm/ Premix 100 mls @ 25 mls/hr IV ONETIME ONE Stop: 08/29/17 11:54 Last Admin: 08/29/17 09:26 Dose: 25 mls/hr Magnesium Sulfate 2 gm/ Premix 50 mls @ 50 mls/hr IV ONETIME ONE Stop: 08/30/17 14:18 Last Admin: 08/30/17 13:38 Dose: 50 mls/hr Insulin Aspart (Novolog) 0 unit SUBCUT Q6H ADRIAN PRN Reason: Protocol Last Admin: 08/28/17 08:20 Dose: Not Given Lidocaine (Xylocaine-Mpf 2%) Confirm Administered Dose 5 ml .ROUTE .STK-MED ONE Stop: 08/30/17 08:54 Last Admin: 08/30/17 09:34 Dose: Not Given Metoprolol Tartrate (Lopressor) 5 mg IVPUSH ONETIME ONE Stop: 08/28/17 14:33 Last Admin: 08/28/17 15:00 Dose: 5 mg Metoprolol Tartrate (Lopressor) 10 mg IVPUSH ONETIME ONE Stop: 08/28/17 17:12 Last Admin: 08/28/17 17:24 Dose: 10 mg Morphine Sulfate (Morphine) 2 mg IVPUSH Q2H PRN PRN Reason: Pain (severe 7-10) Stop: 08/28/17 07:27 Potassium Chloride (Klor-Con M20) 40 meq PO ONETIME ONE Stop: 08/29/17 06:41 Last Admin: 08/29/17 06:52 Dose: 40 meq Potassium Chloride (Klor-Con M20) 40 meq PO ONETIME ONE Stop: 08/29/17 07:58 Potassium Chloride (Klor-Con M20) 40 meq PO ONETIME ONE Stop: 08/29/17 13:58 Last Admin: 08/29/17 14:47 Dose: 40 meq Potassium Chloride (Klor-Con M20) 40 meq PO ONETIME ONE Stop: 08/30/17 04:07 Last Admin: 08/30/17 04:16 Dose: 40 meq Potassium Chloride (Klor-Con M20) 40 meq PO ONETIME ONE Stop: 08/30/17 13:20 Last Admin: 08/30/17 13:38 Dose: 40 meq - Exam Quality Assessment: Supplemental Oxygen General: Alert, Oriented HEENT: Pupils Equal, EOMI, Mucous Membr. Moist/[place] Neck: Supple, Trachea Midline Lungs: Clear to Auscultation, Normal Respiratory Effort Cardiovascular: Regular Rate GI/Abdominal Exam: Normal Bowel Sounds Extremities: Other (Generalized edema in the upper and lower extremities) Skin: Warm, Dry Psy/Mental Status: Alert, Normal Affect - Problem List Review Problem List Initiated/Reviewed/Updated: Yes - Plan Plan:: Assessment: #1. Acute hypoxic respiratory failure currently on nasal cannula #2. CHF exacerbation #3. Atrial fibrillation with RVR #4. Pneumonia #5. Urinary tract infection #6. Acute on chronic kidney disease #7. Type 2 diabetes Plan: #1. Continue Cardizem drip along with amiodarone for atrial fibrillation. Wean off the drip as tolerated. #2. Potassium was replaced #3. Begin to reinitiate Lasix based on kidney function. Appears to have returned back to normal today. #4. Vancomycin, cefepime for pneumonia and urinary tract infection
[2017-08-30] MEDS ORDERED: Amiodarone In Dextrose,Iso-Osm 150 MG in Premix Bag 1 BAG IV SCH ×2 (15:15)
--- NOTE | 2017-08-30 17:13 | CR ---
EXAM DATE: 08/27/17 PATIENT'S AGE: 57 Patient: COCO REILLY Facility: [place], [place] Site . Site : 1960 Study: XRay Chest [id number]/16/2018 9:40:45 AM Ordering Physician: Tiny Gamez Final Report: Indication: Central line placement Technique: Chest 1 view Comparison: August 27, 2017 Findings/Impression: Cardiovascular and mediastinum: Right IJ central line is in satisfactory position with the tip in the low SVC. Stable mild cardiomegaly. Lungs and pleural space: Mild right perihilar edema is new. Remainder of the lungs and pleural spaces are clear. No pneumothorax. Bones and soft tissues: No acute findings. Dictated by Bimal Agarwal MD @ Aug 30 2017 9:52AM (Electronic Signature) Report Signed by Proxy. JOAO
[2017-08-30] MEDS: Levalbuterol HCl 0.63 MG/3 ML Neb NEB PRN (22:18)
[2017-08-31] MEDS: Diltiazem 100 MG in Sodium Chloride 0.9% 100 ML IV SCH ×4 (01:21→22:47)
[2017-08-31] MEDS: Amiodarone 200 MG Tab PO SCH ×3 (01:22→18:39)
[2017-08-31] MEDS: Insulin Aspart 100 Units/ML 3 ML Pen SUBCUT SCH ×3 (06:44→17:21)
[2017-08-31] MEDS ORDERED: Furosemide 40 MG/4 ML VIAL IVPUSH ONE (07:23)
[2017-08-31] MEDS: Cefepime 1 GM in Premix Bag 1 BAG IV SCH ×2 (08:01→19:54)
[2017-08-31] MEDS: Enoxaparin 40 MG/0.4 ML Syringe SUBCUT SCH (08:01)
[2017-08-31] MEDS ORDERED: Digoxin 50 MCG/ML Soln 60 ML Bottle PO ONE (08:24)
[2017-08-31] MEDS ORDERED: Potassium Chloride 20 MEQ Tab.ER PO ONE (08:28)
[2017-08-31] MEDS ORDERED: Magnesium Sulfate/Water 4 GM in Premix Bag 1 BAG IV ONE (08:29)
[2017-08-31] MEDS: Digoxin 250 MCG Tab PO SCH (09:03)
[2017-08-31] MEDS ORDERED: Morphine 2 MG/ML Syringe IVPUSH ONE (10:39)
--- NOTE | 2017-08-31 10:54 | PCM.PN ---
- General Info Date of Service: 08/31/17 Admission Dx/Problem (Free Text): At bedside rounds today, the patient initially stated that she felt better and her breathing status had improved. However, approximately 9:30 AM, the patient' s breathing status declined and was placed on nonrebreather. She had been on 5 L of nasal cannula. Patient also appeared to be altered and unable to communicate and answer questions appropriately. I ordered an ABG. Patient was given a one-time dose of IV digoxin for atrial fibrillation with RVR last night, did not appear to make a significant difference. Patient had no other complaints. Central line was also placed yesterday. - Review of Systems General: Reports: Other (Review of systems negative except for those listed in history of present illness) - Patient Data Vitals - Most Recent: Last Vital Signs Temp 36.6 C 08/31/17 04:00 Pulse 129 H 08/31/17 09:03 Resp 22 H 08/31/17 07:00 BP 140/78 08/31/17 07:00 Pulse Ox 93 L 08/31/17 07:00 Weight - Most Recent: 108 kg I&O - Last 24 Hours: Intake & Output 08/30/17 08/31/17 08/31/17 22:59 06:59 14:59 Intake Total 831 945 Output Total 1100 1100 Balance -269 -155 Lab Results Last 24 Hours: Laboratory Results - last 24 hr 08/30/17 08/30/17 08/30/17 Range/Units 11:30 11:48 11:48 WBC 12.17 H (4.0-11.0) K/uL RBC 3.73 L (4.30-5.90) M/uL Hgb 9.5 L (12.0-16.0) g/dL Hct 33.8 L (36.0-46.0) % MCV 90.6 (80.0-98.0) fL MCH 25.5 L (27.0-32.0) pg MCHC 28.1 L (31.0-37.0) g/dL RDW Std Deviation 58.2 (28.0-62.0) fl RDW Coeff of Leia 18 H (11.0-15.0) % Plt Count 425 H (150-400) K/uL MPV 10.80 (7.40-12.00) fL Neut % (Auto) 83.3 H (48.0-80.0) % Lymph % (Auto) 5.6 L (16.0-40.0) % [place] % (Auto) 9.5 (0.0-15.0) % Eos % (Auto) 1.4 (0.0-7.0) % Baso % (Auto) 0.2 (0.0-1.5) % Neut # (Auto) 10.1 H (1.4-5.7) K/uL Lymph # (Auto) 0.7 (0.6-2.4) K/uL [place] # (Auto) 1.2 H (0.0-0.8) K/uL Eos # (Auto) 0.2 (0.0-0.7) K/uL Baso # (Auto) 0.0 (0.0-0.1) K/uL Nucleated RBC % 0.7 /100WBC Nucleated RBCs # 0 K/uL Sodium 148 H (136-146) mmol/L Potassium 3.2 L (3.5-5.1) mmol/L Chloride 94 L (98-110) mmol/L Carbon Dioxide 42 H (21-31) mmol/L BUN 39 H (6.0-23.0) mg/dL Creatinine 1.4 (0.6-1.5) mg/dL Est Cr Clr Drug Dosing 37.63 mL/min Estimated GFR (MDRD) 38.5 ml/min Glucose 251 H (60-110) mg/dL POC Glucose 213 H (60-110) mg/dL Calcium 8.9 (8.8-10.8) mg/dL Magnesium (1.5-2.3) mEq/L 08/30/17 08/30/17 08/30/17 Range/Units 11:48 17:26 19:02 WBC (4.0-11.0) K/uL RBC (4.30-5.90) M/uL Hgb (12.0-16.0) g/dL Hct (36.0-46.0) % MCV (80.0-98.0) fL MCH (27.0-32.0) pg MCHC (31.0-37.0) g/dL RDW Std Deviation (28.0-62.0) fl RDW Coeff of Leia (11.0-15.0) % Plt Count (150-400) K/uL MPV (7.40-12.00) fL Neut % (Auto) (48.0-80.0) % Lymph % (Auto) (16.0-40.0) % [place] % (Auto) (0.0-15.0) % Eos % (Auto) (0.0-7.0) % Baso % (Auto) (0.0-1.5) % Neut # (Auto) (1.4-5.7) K/uL Lymph # (Auto) (0.6-2.4) K/uL [place] # (Auto) (0.0-0.8) K/uL Eos # (Auto) (0.0-0.7) K/uL Baso # (Auto) (0.0-0.1) K/uL Nucleated RBC % /100WBC Nucleated RBCs # K/uL Sodium 148 H (136-146) mmol/L Potassium 3.2 L (3.5-5.1) mmol/L Chloride 94 L (98-110) mmol/L Carbon Dioxide 43 H (21-31) mmol/L BUN 36 H (6.0-23.0) mg/dL Creatinine 1.4 (0.6-1.5) mg/dL Est Cr Clr Drug Dosing 37.63 mL/min Estimated GFR (MDRD) 38.5 ml/min Glucose 259 H (60-110) mg/dL POC Glucose 219 H (60-110) mg/dL Calcium 8.7 L (8.8-10.8) mg/dL Magnesium 1.7 (1.5-2.3) mEq/L 08/31/17 08/31/17 08/31/17 Range/Units 05:17 05:17 05:17 WBC 13.60 H (4.0-11.0) K/uL RBC 3.66 L (4.30-5.90) M/uL Hgb 9.3 L (12.0-16.0) g/dL Hct 33.5 L (36.0-46.0) % MCV 91.5 (80.0-98.0) fL MCH 25.4 L (27.0-32.0) pg MCHC 27.8 L (31.0-37.0) g/dL RDW Std Deviation 59.3 (28.0-62.0) fl RDW Coeff of Leia 18 H (11.0-15.0) % Plt Count 439 H (150-400) K/uL MPV 11.20 (7.40-12.00) fL Neut % (Auto) 77.5 (48.0-80.0) % Lymph % (Auto) 8.5 L (16.0-40.0) % [place] % (Auto) 11.0 (0.0-15.0) % Eos % (Auto) 2.7 (0.0-7.0) % Baso % (Auto) 0.3 (0.0-1.5) % Neut # (Auto) 10.5 H (1.4-5.7) K/uL Lymph # (Auto) 1.2 (0.6-2.4) K/uL [place] # (Auto) 1.5 H (0.0-0.8) K/uL Eos # (Auto) 0.4 (0.0-0.7) K/uL Baso # (Auto) 0.0 (0.0-0.1) K/uL Nucleated RBC % 0.6 /100WBC Nucleated RBCs # 0 K/uL Sodium 150 H (136-146) mmol/L Potassium 3.6 (3.5-5.1) mmol/L Chloride 95 L (98-110) mmol/L Carbon Dioxide 42 H (21-31) mmol/L BUN 31 H (6.0-23.0) mg/dL Creatinine 1.4 (0.6-1.5) mg/dL Est Cr Clr Drug Dosing 37.63 mL/min Estimated GFR (MDRD) 38.5 ml/min Glucose 249 H (60-110) mg/dL POC Glucose (60-110) mg/dL Calcium 9.0 (8.8-10.8) mg/dL Magnesium 1.7 (1.5-2.3) mEq/L 08/31/17 Range/Units 06:34 WBC (4.0-11.0) K/uL RBC (4.30-5.90) M/uL Hgb (12.0-16.0) g/dL Hct (36.0-46.0) % MCV (80.0-98.0) fL MCH (27.0-32.0) pg MCHC (31.0-37.0) g/dL RDW Std Deviation (28.0-62.0) fl RDW Coeff of Leia (11.0-15.0) % Plt Count (150-400) K/uL MPV (7.40-12.00) fL Neut % (Auto) (48.0-80.0) % Lymph % (Auto) (16.0-40.0) % [place] % (Auto) (0.0-15.0) % Eos % (Auto) (0.0-7.0) % Baso % (Auto) (0.0-1.5) % Neut # (Auto) (1.4-5.7) K/uL Lymph # (Auto) (0.6-2.4) K/uL [place] # (Auto) (0.0-0.8) K/uL Eos # (Auto) (0.0-0.7) K/uL Baso # (Auto) (0.0-0.1) K/uL Nucleated RBC % /100WBC Nucleated RBCs # K/uL Sodium (136-146) mmol/L Potassium (3.5-5.1) mmol/L Chloride (98-110) mmol/L Carbon Dioxide (21-31) mmol/L BUN (6.0-23.0) mg/dL Creatinine (0.6-1.5) mg/dL Est Cr Clr Drug Dosing mL/min Estimated GFR (MDRD) ml/min Glucose (60-110) mg/dL POC Glucose 209 H (60-110) mg/dL Calcium (8.8-10.8) mg/dL Magnesium (1.5-2.3) mEq/L Med Orders - Current: Current Medications Amiodarone HCl (Cordarone) 200 mg PO Q8H [facility] Last Admin: 08/31/17 01:22 Dose: 200 mg Digoxin (Lanoxin) 500 mcg PO DAILY [facility] Last Admin: 08/31/17 09:03 Dose: 500 mcg Digoxin (Lanoxin) 250 mcg PO ONETIME ONE Stop: 08/31/17 14:01 Digoxin (Lanoxin) 250 mcg PO ONETIME ONE Stop: 08/31/17 20:01 Enoxaparin Sodium (Lovenox) 40 mg SUBCUT DAILY [facility] Last Admin: 08/31/17 08:01 Dose: 40 mg Cefepime HCl 1 gm/ Premix 50 mls @ 100 mls/hr IV Q12H [facility] Last Admin: 08/31/17 08:01 Dose: 100 mls/hr Vancomycin HCl 1,750 mg/ (Sodium Chloride) 500 mls @ 250 mls/hr IV Q36H [facility] Last Admin: 08/29/17 22:00 Dose: 250 mls/hr Diltiazem HCl 100 mg/ Sodium (Chloride) 100 mls @ 5 mls/hr IV TITRATE ADRIAN; 5 MG /HR PRN Reason: Protocol Last Admin: 08/31/17 06:26 Dose: 20 mg/hr, 20 mls/hr Amiodarone HCl/Dextrose 150 mg (/ Premix) 100 mls @ 600 mls/hr IV .BOLUS [facility] Last Admin: 08/30/17 15:24 Dose: 600 mls/hr Dextrose/Sodium Chloride (Dextrose 5%-1/2 Ns) 1,000 mls @ 100 mls/hr IV ASDIRECTED ADRIAN Magnesium Sulfate 4 gm/ Premix 100 mls @ 25 mls/hr IV ONETIME ONE Stop: 08/31/17 12:28 Last Admin: 08/31/17 09:04 Dose: 25 mls/hr Insulin Aspart (Novolog) 0 unit SUBCUT TIDAC ADRIAN PRN Reason: Protocol Last Admin: 08/31/17 06:44 Dose: 4 unit Levalbuterol HCl (Xopenex) 0.63 mg NEB Q4HRRT PRN PRN Reason: Shortness of Breath Last Admin: 08/30/17 22:18 Dose: 0.63 mg Melatonin (Melatonin) 3 mg PO BEDTIME PRN PRN Reason: Other Last Admin: 08/30/17 23:11 Dose: 3 mg Ondansetron HCl (Zofran) 4 mg IVPUSH Q4H PRN PRN Reason: Nausea Sodium Chloride (Saline Flush) 10 ml FLUSH ASDIRECTED PRN PRN Reason: Keep Vein Open Sodium Chloride (Saline Flush) 2.5 ml FLUSH ASDIRECTED PRN PRN Reason: Keep Vein Open Sodium Chloride (Grand Nasal [place]) 1 ml [place] QID PRN PRN Reason: Congestion Vancomycin HCl (Pharmacy To Dose - Vancomycin) 1 dose .XX ASDIRECTED [facility] Discontinued Medications Amiodarone HCl (Cordarone) 200 mg PO Q6H [facility] Last Admin: 08/28/17 18:10 Dose: Not Given Dextrose/Water (Dextrose 50% In Water) 50 ml IVPUSH ONETIME ONE Stop: 08/27/17 08:12 Last Admin: 08/27/17 08:43 Dose: 50 ml Digoxin (Lanoxin) 250 mcg IVPUSH ONETIME ONE Stop: 08/30/17 11:35 Last Admin: 08/30/17 11:40 Dose: 250 mcg Digoxin (Lanoxin) 1,000 mcg PO ONETIME ONE Stop: 08/31/17 08:25 Diltiazem HCl (Diltiazem) 10 mg IVPUSH ONETIME ONE Stop: 08/27/17 04:20 Last Admin: 08/27/17 04:26 Dose: 10 mg Diltiazem HCl (Diltiazem) 10 mg IVPUSH ONETIME ONE Stop: 08/27/17 06:53 Last Admin: 08/27/17 07:03 Dose: 10 mg Diltiazem HCl (Diltiazem) 10 mg IVPUSH Q4HR PRN PRN Reason: Arrhythmia Last Admin: 08/28/17 12:24 Dose: 10 mg Enoxaparin Sodium (Lovenox) 100 mg SUBCUT ONETIME ONE Stop: 08/27/17 04:35 Last Admin: 08/27/17 04:38 Dose: 100 mg Furosemide (Lasix) 60 mg IVPUSH NOW ONE Stop: 08/27/17 04:32 Last Admin: 08/27/17 04:33 Dose: 60 mg Furosemide (Lasix) Confirm Administered Dose 80 mg .ROUTE .STK-MED ONE Stop: 08/27/17 04:33 Last Admin: 08/27/17 05:11 Dose: Not Given Furosemide (Lasix) 80 mg IVPUSH BID [facility] Last Admin: 08/28/17 20:15 Dose: 80 mg Furosemide (Lasix) 40 mg IVPUSH NOW ONE Stop: 08/30/17 13:20 Last Admin: 08/30/17 13:38 Dose: 40 mg Furosemide (Lasix) 40 mg IVPUSH NOW ONE Stop: 08/31/17 07:24 Last Admin: 08/31/17 08:00 Dose: 40 mg Piperacillin Sod/Tazobactam (Sod 3.375 gm/ Sodium Chloride) 50 mls @ 100 mls/ hr IV ONETIME ONE Stop: 08/27/17 04:47 Last Admin: 08/27/17 04:28 Dose: 100 mls/hr Levofloxacin/Dextrose 750 mg/ (Premix) 150 mls @ 100 mls/hr IV Q24H [facility] Last Admin: 08/29/17 08:20 Dose: Not Given Dextrose/Water (Dextrose 5% In Water) 1,000 mls @ 75 mls/hr IV ASDIRECTED ADRIAN Last Admin: 08/29/17 08:40 Dose: 75 mls/hr Vancomycin HCl 1,750 mg/ (Sodium Chloride) 500 mls @ 250 mls/hr IV Q24H [facility] Last Admin: 08/29/17 13:07 Dose: Not Given Amiodarone HCl/Dextrose (Nexterone In Dextrose 360 Mg/200 Ml) 360 mg in 200 mls @ 33.333 mls/hr IV ASDIRECTED ADRIAN; 1 MG/MIN PRN Reason: Protocol Amiodarone HCl/Dextrose 150 mg (/ Premix) 100 mls @ 600 mls/hr IV ASDIRECTED ONE Stop: 08/28/17 15:54 Last Admin: 08/28/17 17:51 Dose: Not Given Metoprolol Tartrate 10 mg/ (Sodium Chloride) 60 mls @ 100 mls/hr IV ONETIME ONE Stop: 08/28/17 17:31 Last Admin: 08/28/17 17:11 Dose: Not Given Magnesium Sulfate 4 gm/ Premix 100 mls @ 25 mls/hr IV ONETIME ONE Stop: 08/29/17 11:54 Last Admin: 08/29/17 09:26 Dose: 25 mls/hr Magnesium Sulfate 2 gm/ Premix 50 mls @ 50 mls/hr IV ONETIME ONE Stop: 08/30/17 14:18 Last Admin: 08/30/17 13:38 Dose: 50 mls/hr Insulin Aspart (Novolog) 0 unit SUBCUT Q6H ADRIAN PRN Reason: Protocol Last Admin: 08/28/17 08:20 Dose: Not Given Lidocaine (Xylocaine-Mpf 2%) Confirm Administered Dose 5 ml .ROUTE .STK-MED ONE Stop: 08/30/17 08:54 Last Admin: 08/30/17 09:34 Dose: Not Given Metoprolol Tartrate (Lopressor) 5 mg IVPUSH ONETIME ONE Stop: 08/28/17 14:33 Last Admin: 08/28/17 15:00 Dose: 5 mg Metoprolol Tartrate (Lopressor) 10 mg IVPUSH ONETIME ONE Stop: 08/28/17 17:12 Last Admin: 08/28/17 17:24 Dose: 10 mg Morphine Sulfate (Morphine) 2 mg IVPUSH Q2H PRN PRN Reason: Pain (severe 7-10) Stop: 08/28/17 07:27 Morphine Sulfate (Morphine) 2 mg IVPUSH ONETIME ONE Stop: 08/31/17 10:40 Potassium Chloride (Klor-Con M20) 40 meq PO ONETIME ONE Stop: 08/29/17 06:41 Last Admin: 08/29/17 06:52 Dose: 40 meq Potassium Chloride (Klor-Con M20) 40 meq PO ONETIME ONE Stop: 08/29/17 07:58 Potassium Chloride (Klor-Con M20) 40 meq PO ONETIME ONE Stop: 08/29/17 13:58 Last Admin: 08/29/17 14:47 Dose: 40 meq Potassium Chloride (Klor-Con M20) 40 meq PO ONETIME ONE Stop: 08/30/17 04:07 Last Admin: 08/30/17 04:16 Dose: 40 meq Potassium Chloride (Klor-Con M20) 40 meq PO ONETIME ONE Stop: 08/30/17 13:20 Last Admin: 08/30/17 13:38 Dose: 40 meq Potassium Chloride (Klor-Con M20) 40 meq PO ONETIME ONE Stop: 08/30/17 21:47 Last Admin: 08/30/17 22:11 Dose: 40 meq Potassium Chloride (Klor-Con M20) 40 meq PO ONETIME ONE Stop: 08/31/17 08:29 Last Admin: 08/31/17 09:03 Dose: 40 meq - Exam Quality Assessment: Supplemental Oxygen, Central Line/PICC General: Moderate Distress HEENT: Pupils Equal, Pupils Reactive Neck: Supple Lungs: Decreased Breath Sounds Cardiovascular: Regular Rate, Regular Rhythm GI/Abdominal Exam: Normal Bowel Sounds, Soft Extremities: Pedal Edema Skin: Warm - Problem List Review Problem List Initiated/Reviewed/Updated: Yes - My Orders Last 24 Hours: My Active Orders 08/31/17 07:30 Dextrose 5%-0.45% NaCl [Dextrose 5%-1/2 NS] 1,000 ml IV ASDIRECTED 08/31/17 08:29 Magnesium Sulfate/Water [Magnesium Sulfate 4 GM in Water 100 ML] 4 gm Premix Bag 1 bag IV ONETIME 08/31/17 09:00 Digoxin [Lanoxin] 500 mcg PO DAILY 08/31/17 09:59 ABG [BLOOD GAS ARTERIAL] [BG] Routine 08/31/17 14:00 Digoxin [Lanoxin] 250 mcg PO ONETIME ONE 08/31/17 20:00 Digoxin [Lanoxin] 250 mcg PO ONETIME ONE 09/01/17 05:11 DIGOXIN [CHEM] AM - Plan Plan:: Assessment: #1. Acute hypoxic respiratory failure currently on nonrebreather. #2. CHF exacerbation #3. Atrial fibrillation with RVR #4. Pneumonia #5. Urinary tract infection #6. Acute on chronic kidney disease #7. Type 2 diabetes Plan: #1. Continue Cardizem drip along with amiodarone for atrial fibrillation. Initiate digoxin loading dose. Digoxin level ordered for tomorrow morning. Wean off the Cardizem drip as tolerated. #2. Potassium was replaced #3. Lasix for diuresis as tolerated while monitoring potassium levels and kidney function #4. Vancomycin, cefepime for pneumonia and urinary tract infection #5. Follow up on ABG
[2017-08-31] MEDS ORDERED: Digoxin 250 MCG Tab PO ONE ×2 (14:00→20:00)
[2017-08-31] MEDS: Dextrose 5%-0.45% NaCl 1,000 ML IV SCH (15:01)
--- NOTE | 2017-08-31 15:38 | CR ---
EXAMINATION: Portable chest radiograph. HISTORY: Shortness of breath. FINDINGS: The trachea is midline. The cardiomediastinal silhouette is within normal limits. Mildly increased ri ght basilar consolidation. Likely a trace left basilar consolidation also noted. Right-sided central line with tip in good position. Osseous structures appear unremarkable. IMPRESSION: Mildly increasing right basilar consolidation.
[2017-08-31] MEDS: Melatonin 3 MG Tab PO PRN (21:40)
[2017-08-31] MEDS: Levalbuterol HCl 0.63 MG/3 ML Neb NEB PRN (23:26)
[2017-09-01] MEDS: Amiodarone 200 MG Tab PO SCH ×3 (01:06→18:12)
[2017-09-01] MEDS: Dextrose 5%-0.45% NaCl 1,000 ML IV SCH ×2 (01:53→16:38)
[2017-09-01] MEDS: Levalbuterol HCl 0.63 MG/3 ML Neb NEB PRN (04:46)
[2017-09-01] MEDS ORDERED: Morphine 2 MG/ML Syringe IVPUSH ONE ×3 (07:06→20:17)
[2017-09-01] MEDS ORDERED: Furosemide 40 MG/4 ML VIAL IVPUSH ONE (07:27)
[2017-09-01] MEDS: Insulin Aspart 100 Units/ML 3 ML Pen SUBCUT SCH ×3 (07:29→18:07)
[2017-09-01] MEDS: Cefepime 1 GM in Premix Bag 1 BAG IV SCH ×2 (07:31→19:26)
[2017-09-01] MEDS ORDERED: Potassium Phosphates 15 MMOLE in Sodium Chloride 0.9% 250 ML IV ONE (08:00)
[2017-09-01] MEDS: Enoxaparin 40 MG/0.4 ML Syringe SUBCUT SCH (08:13)
[2017-09-01] MEDS: Digoxin 250 MCG Tab PO SCH (08:15)
--- NOTE | 2017-09-01 11:13 | PCM.PN ---
- General Info Date of Service: 09/01/17 Admission Dx/Problem (Free Text): observing the patient's morning, the patient appears to be lethargic and slow with answering questions. As per nursing, BiPAP which is ordered by the attending physician last night was refused by her. She is placed on nonrebreather secondary to the hypercapnia that she's been going through. EICU ordered a VBG secondary to inability to get an ABG, consistent with hypercapnia and a mixed respiratory acidosis and metabolic alkalosis. Talk to the patient's morning, after she wanted to be on BiPAP and she said okay. She continues to be hypernatremic. patient is receiving D5 half-normal saline. Digoxin was started yesterday, dig level this morning was high 2.59. talking to the patient, she declines a chest pain, palpitations, fevers or chills. - Review of Systems General: Reports: Other (see history of present illness) - Patient Data Vitals - Most Recent: Last Vital Signs Temp 36.9 C 09/01/17 04:00 Pulse 100 09/01/17 08:00 Resp 17 09/01/17 08:00 BP 179/73 H 09/01/17 08:00 Pulse Ox 95 09/01/17 08:00 Weight - Most Recent: 108.9 kg I&O - Last 24 Hours: Intake & Output 08/31/17 09/01/17 09/01/17 22:59 06:59 14:59 Intake Total 1500 1127 Output Total 750 650 Balance 750 477 Lab Results Last 24 Hours: Laboratory Results - last 24 hr 08/31/17 08/31/17 08/31/17 Range/Units 12:07 15:08 17:00 WBC (4.0-11.0) K/uL RBC (4.30-5.90) M/uL Hgb (12.0-16.0) g/dL Hct (36.0-46.0) % MCV (80.0-98.0) fL MCH (27.0-32.0) pg MCHC (31.0-37.0) g/dL RDW Std Deviation (28.0-62.0) fl RDW Coeff of Leia (11.0-15.0) % Plt Count (150-400) K/uL MPV (7.40-12.00) fL Neut % (Auto) (48.0-80.0) % Lymph % (Auto) (16.0-40.0) % Barbour % (Auto) (0.0-15.0) % Eos % (Auto) (0.0-7.0) % Baso % (Auto) (0.0-1.5) % Neut # (Auto) (1.4-5.7) K/uL Lymph # (Auto) (0.6-2.4) K/uL Barbour # (Auto) (0.0-0.8) K/uL Eos # (Auto) (0.0-0.7) K/uL Baso # (Auto) (0.0-0.1) K/uL Nucleated RBC % /100WBC Nucleated RBCs # K/uL VBG pH (7.31-7.41) VBG pCO2 (35-45) mmHG VBG pO2 (30-40) mmHG VBG HCO3 (22-30) mEq/L VBG Total CO2 (41-51) mmol/L VBG Base Excess (-3.0-3.0) Sodium 150 H (136-146) mmol/L Potassium 3.9 (3.5-5.1) mmol/L Chloride 96 L (98-110) mmol/L Carbon Dioxide 42 H (21-31) mmol/L BUN 29 H (6.0-23.0) mg/dL Creatinine 1.4 (0.6-1.5) mg/dL Est Cr Clr Drug Dosing 37.63 mL/min Estimated GFR (MDRD) 38.5 ml/min Glucose 273 H (60-110) mg/dL POC Glucose 238 H 222 H (60-110) mg/dL Calcium 8.9 (8.8-10.8) mg/dL Phosphorus (2.4-4.7) mg/dL Magnesium (1.5-2.3) mEq/L Total Bilirubin (0.1-1.5) mg/dL AST (5-40) IU/L ALT (8-54) IU/L Alkaline Phosphatase (40-150) Total Protein (6.0-8.0) g/dL Albumin (3.5-5.0) g/dL Globulin (2.0-3.5) g/dL Albumin/Globulin Ratio (1.3-2.8) Digoxin (0.8-2.0) ng/mL 09/01/17 09/01/17 09/01/17 Range/Units 05:29 05:29 06:44 WBC 13.94 H (4.0-11.0) K/uL RBC 3.47 L (4.30-5.90) M/uL Hgb 8.8 L (12.0-16.0) g/dL Hct 32.2 L (36.0-46.0) % MCV 92.8 (80.0-98.0) fL MCH 25.4 L (27.0-32.0) pg MCHC 27.3 L (31.0-37.0) g/dL RDW Std Deviation 59.2 (28.0-62.0) fl RDW Coeff of Leia 18 H (11.0-15.0) % Plt Count 413 H (150-400) K/uL MPV 10.90 (7.40-12.00) fL Neut % (Auto) 82.3 H (48.0-80.0) % Lymph % (Auto) 3.9 L (16.0-40.0) % Barbour % (Auto) 11.0 (0.0-15.0) % Eos % (Auto) 2.5 (0.0-7.0) % Baso % (Auto) 0.3 (0.0-1.5) % Neut # (Auto) 11.5 H (1.4-5.7) K/uL Lymph # (Auto) 0.5 L (0.6-2.4) K/uL Barbour # (Auto) 1.5 H (0.0-0.8) K/uL Eos # (Auto) 0.4 (0.0-0.7) K/uL Baso # (Auto) 0.0 (0.0-0.1) K/uL Nucleated RBC % 1.0 /100WBC Nucleated RBCs # 0 K/uL VBG pH 7.35 (7.31-7.41) VBG pCO2 84 H (35-45) mmHG VBG pO2 51 H (30-40) mmHG VBG HCO3 46 H (22-30) mEq/L VBG Total CO2 44 (41-51) mmol/L VBG Base Excess 17.6 H (-3.0-3.0) Sodium 147 H (136-146) mmol/L Potassium 3.7 (3.5-5.1) mmol/L Chloride 96 L (98-110) mmol/L Carbon Dioxide 42 H (21-31) mmol/L BUN 24 H (6.0-23.0) mg/dL Creatinine 1.4 (0.6-1.5) mg/dL Est Cr Clr Drug Dosing 37.63 mL/min Estimated GFR (MDRD) 38.5 ml/min Glucose 345 H (60-110) mg/dL POC Glucose (60-110) mg/dL Calcium 8.6 L (8.8-10.8) mg/dL Phosphorus 1.6 L (2.4-4.7) mg/dL Magnesium 2.1 (1.5-2.3) mEq/L Total Bilirubin 0.3 (0.1-1.5) mg/dL AST 14 (5-40) IU/L ALT 27 (8-54) IU/L Alkaline Phosphatase 97 (40-150) Total Protein 5.7 L (6.0-8.0) g/dL Albumin 3.0 L (3.5-5.0) g/dL Globulin 2.7 (2.0-3.5) g/dL Albumin/Globulin Ratio 1.1 L (1.3-2.8) Digoxin 2.59 H (0.8-2.0) ng/mL 09/01/17 Range/Units 07:29 WBC (4.0-11.0) K/uL RBC (4.30-5.90) M/uL Hgb (12.0-16.0) g/dL Hct (36.0-46.0) % MCV (80.0-98.0) fL MCH (27.0-32.0) pg MCHC (31.0-37.0) g/dL RDW Std Deviation (28.0-62.0) fl RDW Coeff of Leia (11.0-15.0) % Plt Count (150-400) K/uL MPV (7.40-12.00) fL Neut % (Auto) (48.0-80.0) % Lymph % (Auto) (16.0-40.0) % Barbour % (Auto) (0.0-15.0) % Eos % (Auto) (0.0-7.0) % Baso % (Auto) (0.0-1.5) % Neut # (Auto) (1.4-5.7) K/uL Lymph # (Auto) (0.6-2.4) K/uL [place]bour # (Auto) (0.0-0.8) K/uL Eos # (Auto) (0.0-0.7) K/uL Baso # (Auto) (0.0-0.1) K/uL Nucleated RBC % /100WBC Nucleated RBCs # K/uL VBG pH (7.31-7.41) VBG pCO2 (35-45) mmHG VBG pO2 (30-40) mmHG VBG HCO3 (22-30) mEq/L VBG Total CO2 (41-51) mmol/L VBG Base Excess (-3.0-3.0) Sodium (136-146) mmol/L Potassium (3.5-5.1) mmol/L Chloride (98-110) mmol/L Carbon Dioxide (21-31) mmol/L BUN (6.0-23.0) mg/dL Creatinine (0.6-1.5) mg/dL Est Cr Clr Drug Dosing mL/min Estimated GFR (MDRD) ml/min Glucose (60-110) mg/dL POC Glucose 303 H (60-110) mg/dL Calcium (8.8-10.8) mg/dL Phosphorus (2.4-4.7) mg/dL Magnesium (1.5-2.3) mEq/L Total Bilirubin (0.1-1.5) mg/dL AST (5-40) IU/L ALT (8-54) IU/L Alkaline Phosphatase (40-150) Total Protein (6.0-8.0) g/dL Albumin (3.5-5.0) g/dL Globulin (2.0-3.5) g/dL Albumin/Globulin Ratio (1.3-2.8) Digoxin (0.8-2.0) ng/mL Med Orders - Current: Current Medications Albuterol/Ipratropium (Duoneb 3.0-0.5 Mg/3 Ml) 3 ml NEB Q6HRRT [facility] Amiodarone HCl (Cordarone) 200 mg PO Q8H [facility] Last Admin: 09/01/17 01:06 Dose: 200 mg Digoxin (Lanoxin) 500 mcg PO DAILY [facility] Last Admin: 09/01/17 08:15 Dose: 500 mcg Enoxaparin Sodium (Lovenox) 40 mg SUBCUT DAILY [facility] Last Admin: 09/01/17 08:13 Dose: 40 mg Cefepime HCl 1 gm/ Premix 50 mls @ 100 mls/hr IV Q12H [facility] Last Admin: 09/01/17 07:31 Dose: 100 mls/hr Vancomycin HCl 1,750 mg/ (Sodium Chloride) 500 mls @ 250 mls/hr IV Q36H [facility] Last Admin: 08/31/17 11:00 Dose: 250 mls/hr Diltiazem HCl 100 mg/ Sodium (Chloride) 100 mls @ 5 mls/hr IV TITRATE [facility]; 5 MG /HR PRN Reason: Protocol Last Titration: 09/01/17 00:37 Dose: 10 mg/hr, 10 mls/hr Amiodarone HCl/Dextrose 150 mg (/ Premix) 100 mls @ 600 mls/hr IV .BOLUS [facility] Last Admin: 08/30/17 15:24 Dose: 600 mls/hr Dextrose/Sodium Chloride (Dextrose 5%-1/2 Ns) 1,000 mls @ 100 mls/hr IV ASDIRECTED [facility] Last Admin: 09/01/17 01:53 Dose: 100 mls/hr Potassium Phosphate 15 mmole/ (Sodium Chloride) 255 mls @ 62.5 mls/hr IV NOW ONE Stop: 09/01/17 12:04 Last Admin: 09/01/17 08:14 Dose: 62.5 mls/hr Insulin Aspart (Novolog) 0 unit SUBCUT TIDAC [facility] PRN Reason: Protocol Last Admin: 09/01/17 07:29 Dose: 8 unit Levalbuterol HCl (Xopenex) 0.63 mg NEB Q4HRRT PRN PRN Reason: Shortness of Breath Last Admin: 09/01/17 04:46 Dose: 0.63 mg Melatonin (Melatonin) 3 mg PO BEDTIME PRN PRN Reason: Other Last Admin: 08/31/17 21:40 Dose: 3 mg Ondansetron HCl (Zofran) 4 mg IVPUSH Q4H PRN PRN Reason: Nausea Sodium Chloride (Saline Flush) 10 ml FLUSH ASDIRECTED PRN PRN Reason: Keep Vein Open Sodium Chloride (Saline Flush) 2.5 ml FLUSH ASDIRECTED PRN PRN Reason: Keep Vein Open Sodium Chloride ([place] Nasal [place]) 1 ml [place] QID PRN PRN Reason: Congestion Vancomycin HCl (Pharmacy To Dose - Vancomycin) 1 dose .XX ASDIRECTED [facility] Discontinued Medications Amiodarone HCl (Cordarone) 200 mg PO Q6H [facility] Last Admin: 08/28/17 18:10 Dose: Not Given Dextrose/Water (Dextrose 50% In Water) 50 ml IVPUSH ONETIME ONE Stop: 08/27/17 08:12 Last Admin: 08/27/17 08:43 Dose: 50 ml Digoxin (Lanoxin) 250 mcg IVPUSH ONETIME ONE Stop: 08/30/17 11:35 Last Admin: 08/30/17 11:40 Dose: 250 mcg Digoxin (Lanoxin) 1,000 mcg PO ONETIME ONE Stop: 08/31/17 08:25 Digoxin (Lanoxin) 250 mcg PO ONETIME ONE Stop: 08/31/17 14:01 Last Admin: 08/31/17 15:00 Dose: 250 mcg Digoxin (Lanoxin) 250 mcg PO ONETIME ONE Stop: 08/31/17 20:01 Last Admin: 08/31/17 19:54 Dose: 250 mcg Diltiazem HCl (Diltiazem) 10 mg IVPUSH ONETIME ONE Stop: 08/27/17 04:20 Last Admin: 08/27/17 04:26 Dose: 10 mg Diltiazem HCl (Diltiazem) 10 mg IVPUSH ONETIME ONE Stop: 08/27/17 06:53 Last Admin: 08/27/17 07:03 Dose: 10 mg Diltiazem HCl (Diltiazem) 10 mg IVPUSH Q4HR PRN PRN Reason: Arrhythmia Last Admin: 08/28/17 12:24 Dose: 10 mg Enoxaparin Sodium (Lovenox) 100 mg SUBCUT ONETIME ONE Stop: 08/27/17 04:35 Last Admin: 08/27/17 04:38 Dose: 100 mg Furosemide (Lasix) 60 mg IVPUSH NOW ONE Stop: 08/27/17 04:32 Last Admin: 08/27/17 04:33 Dose: 60 mg Furosemide (Lasix) Confirm Administered Dose 80 mg .ROUTE .STK-MED ONE Stop: 08/27/17 04:33 Last Admin: 08/27/17 05:11 Dose: Not Given Furosemide (Lasix) 80 mg IVPUSH BID [facility] Last Admin: 08/28/17 20:15 Dose: 80 mg Furosemide (Lasix) 40 mg IVPUSH NOW ONE Stop: 08/30/17 13:20 Last Admin: 08/30/17 13:38 Dose: 40 mg Furosemide (Lasix) 40 mg IVPUSH NOW ONE Stop: 08/31/17 07:24 Last Admin: 08/31/17 08:00 Dose: 40 mg Furosemide (Lasix) 80 mg IVPUSH NOW ONE Stop: 09/01/17 07:28 Last Admin: 09/01/17 08:16 Dose: 80 mg Piperacillin Sod/Tazobactam (Sod 3.375 gm/ Sodium Chloride) 50 mls @ 100 mls/ hr IV ONETIME ONE Stop: 08/27/17 04:47 Last Admin: 08/27/17 04:28 Dose: 100 mls/hr Levofloxacin/Dextrose 750 mg/ (Premix) 150 mls @ 100 mls/hr IV Q24H [facility] Last Admin: 08/29/17 08:20 Dose: Not Given Dextrose/Water (Dextrose 5% In Water) 1,000 mls @ 75 mls/hr IV ASDIRECTED [facility] Last Admin: 08/29/17 08:40 Dose: 75 mls/hr Vancomycin HCl 1,750 mg/ (Sodium Chloride) 500 mls @ 250 mls/hr IV Q24H [facility] Last Admin: 08/29/17 13:07 Dose: Not Given Amiodarone HCl/Dextrose (Nexterone In Dextrose 360 Mg/200 Ml) 360 mg in 200 mls @ 33.333 mls/hr IV ASDIRECTED [facility]; 1 MG/MIN PRN Reason: Protocol Amiodarone HCl/Dextrose 150 mg (/ Premix) 100 mls @ 600 mls/hr IV ASDIRECTED ONE Stop: 08/28/17 15:54 Last Admin: 08/28/17 17:51 Dose: Not Given Metoprolol Tartrate 10 mg/ (Sodium Chloride) 60 mls @ 100 mls/hr IV ONETIME ONE Stop: 08/28/17 17:31 Last Admin: 08/28/17 17:11 Dose: Not Given Magnesium Sulfate 4 gm/ Premix 100 mls @ 25 mls/hr IV ONETIME ONE Stop: 08/29/17 11:54 Last Admin: 08/29/17 09:26 Dose: 25 mls/hr Magnesium Sulfate 2 gm/ Premix 50 mls @ 50 mls/hr IV ONETIME ONE Stop: 08/30/17 14:18 Last Admin: 08/30/17 13:38 Dose: 50 mls/hr Magnesium Sulfate 4 gm/ Premix 100 mls @ 25 mls/hr IV ONETIME ONE Stop: 08/31/17 12:28 Last Admin: 08/31/17 09:04 Dose: 25 mls/hr Insulin Aspart (Novolog) 0 unit SUBCUT Q6H [facility] PRN Reason: Protocol Last Admin: 08/28/17 08:20 Dose: Not Given Lidocaine (Xylocaine-Mpf 2%) Confirm Administered Dose 5 ml .ROUTE .STK-MED ONE Stop: 08/30/17 08:54 Last Admin: 08/30/17 09:34 Dose: Not Given Metoprolol Tartrate (Lopressor) 5 mg IVPUSH ONETIME ONE Stop: 08/28/17 14:33 Last Admin: 08/28/17 15:00 Dose: 5 mg Metoprolol Tartrate (Lopressor) 10 mg IVPUSH ONETIME ONE Stop: 08/28/17 17:12 Last Admin: 08/28/17 17:24 Dose: 10 mg Morphine Sulfate (Morphine) 2 mg IVPUSH Q2H PRN PRN Reason: Pain (severe 7-10) Stop: 08/28/17 07:27 Morphine Sulfate (Morphine) 2 mg IVPUSH ONETIME ONE Stop: 08/31/17 10:40 Last Admin: 08/31/17 10:52 Dose: 2 mg Morphine Sulfate (Morphine) 2 mg IVPUSH ONETIME ONE Stop: 09/01/17 07:07 Last Admin: 09/01/17 07:23 Dose: 2 mg Potassium Chloride (Klor-Con M20) 40 meq PO ONETIME ONE Stop: 08/29/17 06:41 Last Admin: 08/29/17 06:52 Dose: 40 meq Potassium Chloride (Klor-Con M20) 40 meq PO ONETIME ONE Stop: 08/29/17 07:58 Potassium Chloride (Klor-Con M20) 40 meq PO ONETIME ONE Stop: 08/29/17 13:58 Last Admin: 08/29/17 14:47 Dose: 40 meq Potassium Chloride (Klor-Con M20) 40 meq PO ONETIME ONE Stop: 08/30/17 04:07 Last Admin: 08/30/17 04:16 Dose: 40 meq Potassium Chloride (Klor-Con M20) 40 meq PO ONETIME ONE Stop: 08/30/17 13:20 Last Admin: 08/30/17 13:38 Dose: 40 meq Potassium Chloride (Klor-Con M20) 40 meq PO ONETIME ONE Stop: 08/30/17 21:47 Last Admin: 08/30/17 22:11 Dose: 40 meq Potassium Chloride (Klor-Con M20) 40 meq PO ONETIME ONE Stop: 08/31/17 08:29 Last Admin: 08/31/17 09:03 Dose: 40 meq - Exam Quality Assessment: Supplemental Oxygen, Central Line/PICC General: Alert, Lethargic HEENT: Pupils Equal, EOMI, Other (dry mucous membranes secondary likely to the nonrebreather) Neck: Supple Lungs: Decreased Breath Sounds, Wheezing Cardiovascular: Regular Rate, Regular Rhythm GI/Abdominal Exam: Normal Bowel Sounds, Soft Extremities: Pedal Edema (2+) Skin: Warm Neurological: No New Focal Deficit - Problem List Review Problem List Initiated/Reviewed/Updated: Yes - My Orders Last 24 Hours: My Active Orders 09/01/17 09:21 RT Aerosol Therapy [RC] ASDIRECTED 09/01/17 12:00 Albuterol/Ipratropium [DuoNeb 3.0-0.5 MG/3 ML] 3 ml NEB Q6HRRT 09/01/17 16:00 SODIUM,NA [CHEM] Routine - Plan Plan:: Assessment: #1. Acute hypercapnic hypoxic respiratory failure currently on BiPAP #2. CHF exacerbation #3. Atrial fibrillation with RVR #4. Pneumonia with leukocytosis #5. Urinary tract infection #7. hyperglycemia secondary to Type 2 diabetes Plan: #1. Continue Cardizem drip along with amiodarone for atrial fibrillation. hold off on digoxin, repeat digoxin level. Wean off the Cardizem drip as tolerated. #2. 80 mg IV Lasix for diuresis as tolerated while monitoring potassium levels and kidney function #3. Vancomycin, cefepime for pneumonia and urinary tract infection #4. We will get in touch with the patient's family to discuss treatment plan. At this point, it doesn't appear that she is making much progress despite extensive measures. Clinically, it doesn't appear that this patient will improve without further intervention such as intubation. This patient is a DNR/ DNI. At this point, the patient is competent making her own decisions. Further discussion needs to take place for goals during this hospital stay. We will trial her back on BiPAP and see how things go with that. Duonebs were also ordered for her wheezing.
[2017-09-01] MEDS: Albuterol/Ipratropium 3.0-0.5 MG/3 ML Neb Soln NEB SCH ×3 (11:51→23:31)
[2017-09-01] MEDS ORDERED: hydrALAZINE 20 MG/ML SDV IVPUSH ONE ×2 (13:01→20:17)
--- NOTE | 2017-09-01 14:01 | PCM.SN ---
- Free Text/Narrative Note: Talked with Daughter and son Alesha at length who live in [place]. Patient also has a daughter who was not present for the conversation. As per son, Alesha, he believes that mother, Danae has "pretty much given up on life 2 years ago". I talked with them extensively about the problems we are having with her hypoxia, combined respiratory and metabolic acidosis and tachycardia. She currently is DNR/DNI, I explained to them that in order for me to improve her medical status she would most likely need to be intubated eventually as she has shown little improvement over the course of her stay her. She has been adamantly opposed to intubation previously and would most likely be difficult to ween after. I expressed my concern that I do not want to be doing anything that is causing her harm but am having difficulty maintaining her current medical status without being more invasive. Alesha, son is in complete understanding and states that he would like more comfort measures as he knows she has been deteriorating quite fast over the past several months. He believes he should talk to his sister first before coming to that ultimate decision and I gave him my personal cell phone number to contact me back.
--- NOTE | 2017-09-01 17:14 | PCM.SN ---
- Free Text/Narrative Note: Talked with Thu daughter of patient and as per her medical decision maker. She states that she talked with her brother briefly about our discussion and would like to know the current situation with her mother. I talked extensively about the patient's current medical status of increasing hypoxia with higher bipap requirements, combined resp and metabolic acidosis, and increased heart rate needing to be controlled with IV drips. I explained to the daughter that the patient has not been making any dramatic improvements and since she has stated that she wishes to continue to be DNR/DNI I am reaching the limit of my ability to try and improve her current medical situation. Daughter aknowledges this and states that she has been deteriorating for the past two years. I explained to her that if she was to go to comfort measures I would still be providing oxygen but if the patient refused the bipap I would honor those wishes. This may lead to . Daughter is in understanding and feels like comfort measures may be best but would like to talk with her brother a bit more before making that final decision. She also asked if they could talk with their mother which I arranged. They will call me back as to their decision.
--- NOTE | 2017-09-01 17:35 | CR ---
EXAM DATE: 08/27/17 PATIENT'S AGE: 57 Patient: COCO REILLY Facility: [place], [place] Site . Site : 1960 Study: XRay Chest [id number]/18/2018 6:26:50 AM Ordering Physician: Tiny Gamez Final Report: Indication: Shortness of breath. Hypoxemia. Technique: Chest 1 view Comparison: August 30, 2017 Findings/Impression: Cardiovascular and mediastinum: Right IJ central line remains in satisfactory position. Stable mild cardiomegaly. Normal pulmonary vasculature. Lungs and pleural space: Stable right basilar opacity which could represent pleural fluid, atelectasis and or infiltrate. Probable atelectasis in the left lower lobe. Remainder of the lungs and pleural spaces are clear. No pneumothorax. No significant change from the prior exam. Bones and soft tissues: No acute findings. Dictated by Bimal Agarwal MD @ 09/01/2017 6:37:14 AM Dictated by: Bimal Agarwal MD @ 09/01/2017 06:37:17 (Electronic Signature) Report Signed by Proxy. [facility]Mary
[2017-09-01] MEDS: Morphine 2 MG/ML Syringe IVPUSH PRN ×2 (19:25→23:32)
[2017-09-01] MEDS ORDERED: Potassium Chloride 20 MEQ Tab.ER PO ONE (20:18)
[2017-09-01] MEDS: Melatonin 3 MG Tab PO PRN (21:07)
[2017-09-02] MEDS: Amiodarone 200 MG Tab PO SCH ×3 (01:02→17:32)
[2017-09-02] MEDS: Dextrose 5%-0.45% NaCl 1,000 ML IV SCH (03:48)
[2017-09-02] MEDS: Albuterol/Ipratropium 3.0-0.5 MG/3 ML Neb Soln NEB SCH ×3 (05:02→17:34)
[2017-09-02] MEDS: Metoprolol Tartrate 5 MG/5 ML SDV IVPUSH PRN ×2 (05:19→18:11)
[2017-09-02] MEDS: Morphine 2 MG/ML Syringe IVPUSH PRN ×4 (05:29→18:10)
[2017-09-02] MEDS: Insulin Aspart 100 Units/ML 3 ML Pen SUBCUT SCH ×3 (06:32→17:35)
[2017-09-02] MEDS: Cefepime 1 GM in Premix Bag 1 BAG IV SCH (07:30)
[2017-09-02] MEDS ORDERED: Furosemide 40 MG in Sodium Chloride 0.9% 50 ML IV SCH (09:15)
[2017-09-02] MEDS ORDERED: Bisacodyl 10 MG Supp RECTAL PRN (09:24)
[2017-09-02] MEDS: Furosemide 40 MG/4 ML VIAL IV SCH ×2 (09:53→20:52)
[2017-09-02] MEDS: Enoxaparin 40 MG/0.4 ML Syringe SUBCUT SCH (09:59)
[2017-09-02] MEDS: Digoxin 250 MCG Tab PO SCH (10:43)
[2017-09-02] MEDS ORDERED: Polyethylene Glycol 3350 Powder 17 GM Packet PO PRN (15:19)
--- NOTE | 2017-09-02 15:31 | PCM.PN ---
- General Info Date of Service: 09/02/17 Admission Dx/Problem (Free Text): Evaluated today at the bedside, patient was on BiPAP and appearing progressively lethargic compared to yesterday. She was able to answer yes or no questions. As per discussion by attending physician with family, it appears that the family is moving well towards comfort care in the near future with some discussions that still needs to take place. Digoxin level was elevated this morning. Pharmacy to adjust dosage Lasix scheduled IV 40 mg twice a day patient's complaint of constipation, Dulcolax was ordered - Review of Systems General: Reports: Other (See history of present illness) - Patient Data Vitals - Most Recent: Last Vital Signs Temp 37.3 C 09/02/17 08:00 Pulse 81 09/02/17 07:00 Resp 16 09/02/17 12:00 BP 165/64 H 09/02/17 12:00 Pulse Ox 93 L 09/02/17 12:00 Weight - Most Recent: 110.1 kg I&O - Last 24 Hours: Intake & Output 09/02/17 09/02/17 09/02/17 06:59 14:59 22:59 Intake Total 2280 550 Output Total 1100 Balance 1180 550 Lab Results Last 24 Hours: Laboratory Results - last 24 hr 09/01/17 09/02/17 09/02/17 Range/Units 18:06 06:26 06:26 WBC 14.53 H (4.0-11.0) K/uL RBC 3.43 L (4.30-5.90) M/uL Hgb 8.7 L (12.0-16.0) g/dL Hct 31.1 L (36.0-46.0) % MCV 90.7 (80.0-98.0) fL MCH 25.4 L (27.0-32.0) pg MCHC 28.0 L (31.0-37.0) g/dL RDW Std Deviation 59.0 (28.0-62.0) fl RDW Coeff of Leia 18 H (11.0-15.0) % Plt Count 421 H (150-400) K/uL MPV 11.20 (7.40-12.00) fL Neut % (Auto) 80.4 H (48.0-80.0) % Lymph % (Auto) 5.1 L (16.0-40.0) % [place] % (Auto) 11.1 (0.0-15.0) % Eos % (Auto) 3.0 (0.0-7.0) % Baso % (Auto) 0.4 (0.0-1.5) % Neut # (Auto) 11.7 H (1.4-5.7) K/uL Lymph # (Auto) 0.7 (0.6-2.4) K/uL [place] # (Auto) 1.6 H (0.0-0.8) K/uL Eos # (Auto) 0.4 (0.0-0.7) K/uL Baso # (Auto) 0.1 (0.0-0.1) K/uL Nucleated RBC % 1.0 /100WBC Nucleated RBCs # 0 K/uL Sodium 146 (136-146) mmol/L Potassium 3.8 (3.5-5.1) mmol/L Chloride 95 L (98-110) mmol/L Carbon Dioxide 43 H (21-31) mmol/L BUN 20 (6.0-23.0) mg/dL Creatinine 1.3 (0.6-1.5) mg/dL Est Cr Clr Drug Dosing 40.53 mL/min Estimated GFR (MDRD) 41.9 ml/min Glucose 337 H (60-110) mg/dL POC Glucose 245 H (60-110) mg/dL Calcium 8.1 L (8.8-10.8) mg/dL Total Bilirubin 0.3 (0.1-1.5) mg/dL AST 13 (5-40) IU/L ALT 21 (8-54) IU/L Alkaline Phosphatase 95 (40-150) Total Protein 5.0 L (6.0-8.0) g/dL Albumin 2.5 L (3.5-5.0) g/dL Globulin 2.5 (2.0-3.5) g/dL Albumin/Globulin Ratio 1.0 L (1.3-2.8) Urine Color Urine Appearance Urine pH (5.0-8.0) Ur Specific [place] (1.001-1.035) Urine Protein (NEGATIVE) mg/dL Urine Glucose (UA) (NEGATIVE) mg/dL Urine Ketones (NEGATIVE) mg/dL Urine Occult Blood (NEGATIVE) Urine Nitrite (NEGATIVE) Urine Bilirubin (NEGATIVE) Urine Urobilinogen (<2.0) EU/dL Ur Leukocyte Esterase (NEGATIVE) Urine RBC (0-2/HPF) Urine WBC (0-5/HPF) Ur Epithelial Cells (NONE-FEW) Urine Bacteria (NEGATIVE) Digoxin (0.8-2.0) ng/mL 09/02/17 09/02/17 09/02/17 Range/Units 06:26 06:31 10:25 WBC (4.0-11.0) K/uL RBC (4.30-5.90) M/uL Hgb (12.0-16.0) g/dL Hct (36.0-46.0) % MCV (80.0-98.0) fL MCH (27.0-32.0) pg MCHC (31.0-37.0) g/dL RDW Std Deviation (28.0-62.0) fl RDW Coeff of Leia (11.0-15.0) % Plt Count (150-400) K/uL MPV (7.40-12.00) fL Neut % (Auto) (48.0-80.0) % Lymph % (Auto) (16.0-40.0) % [place] % (Auto) (0.0-15.0) % Eos % (Auto) (0.0-7.0) % Baso % (Auto) (0.0-1.5) % Neut # (Auto) (1.4-5.7) K/uL Lymph # (Auto) (0.6-2.4) K/uL [place] # (Auto) (0.0-0.8) K/uL Eos # (Auto) (0.0-0.7) K/uL Baso # (Auto) (0.0-0.1) K/uL Nucleated RBC % /100WBC Nucleated RBCs # K/uL Sodium (136-146) mmol/L Potassium (3.5-5.1) mmol/L Chloride (98-110) mmol/L Carbon Dioxide (21-31) mmol/L BUN (6.0-23.0) mg/dL Creatinine (0.6-1.5) mg/dL Est Cr Clr Drug Dosing mL/min Estimated GFR (MDRD) ml/min Glucose (60-110) mg/dL POC Glucose 311 H (60-110) mg/dL Calcium (8.8-10.8) mg/dL Total Bilirubin (0.1-1.5) mg/dL AST (5-40) IU/L ALT (8-54) IU/L Alkaline Phosphatase (40-150) Total Protein (6.0-8.0) g/dL Albumin (3.5-5.0) g/dL Globulin (2.0-3.5) g/dL Albumin/Globulin Ratio (1.3-2.8) Urine Color YELLOW Urine Appearance CLEAR Urine pH 7.0 (5.0-8.0) Ur Specific [place] 1.010 (1.001-1.035) Urine Protein NEGATIVE (NEGATIVE) mg/dL Urine Glucose (UA) 100 H (NEGATIVE) mg/dL Urine Ketones NEGATIVE (NEGATIVE) mg/dL Urine Occult Blood NEGATIVE (NEGATIVE) Urine Nitrite NEGATIVE (NEGATIVE) Urine Bilirubin NEGATIVE (NEGATIVE) Urine Urobilinogen 0.2 (<2.0) EU/dL Ur Leukocyte Esterase TRACE (NEGATIVE) Urine RBC 0-1 (0-2/HPF) Urine WBC 1-2 (0-5/HPF) Ur Epithelial Cells RARE (NONE-FEW) Urine Bacteria RARE (NEGATIVE) Digoxin 3.29 H (0.8-2.0) ng/mL 09/02/17 Range/Units 11:41 WBC (4.0-11.0) K/uL RBC (4.30-5.90) M/uL Hgb (12.0-16.0) g/dL Hct (36.0-46.0) % MCV (80.0-98.0) fL MCH (27.0-32.0) pg MCHC (31.0-37.0) g/dL RDW Std Deviation (28.0-62.0) fl RDW Coeff of Leia (11.0-15.0) % Plt Count (150-400) K/uL MPV (7.40-12.00) fL Neut % (Auto) (48.0-80.0) % Lymph % (Auto) (16.0-40.0) % [place] % (Auto) (0.0-15.0) % Eos % (Auto) (0.0-7.0) % Baso % (Auto) (0.0-1.5) % Neut # (Auto) (1.4-5.7) K/uL Lymph # (Auto) (0.6-2.4) K/uL [place] # (Auto) (0.0-0.8) K/uL Eos # (Auto) (0.0-0.7) K/uL Baso # (Auto) (0.0-0.1) K/uL Nucleated RBC % /100WBC Nucleated RBCs # K/uL Sodium (136-146) mmol/L Potassium (3.5-5.1) mmol/L Chloride (98-110) mmol/L Carbon Dioxide (21-31) mmol/L BUN (6.0-23.0) mg/dL Creatinine (0.6-1.5) mg/dL Est Cr Clr Drug Dosing mL/min Estimated GFR (MDRD) ml/min Glucose (60-110) mg/dL POC Glucose 293 H (60-110) mg/dL Calcium (8.8-10.8) mg/dL Total Bilirubin (0.1-1.5) mg/dL AST (5-40) IU/L ALT (8-54) IU/L Alkaline Phosphatase (40-150) Total Protein (6.0-8.0) g/dL Albumin (3.5-5.0) g/dL Globulin (2.0-3.5) g/dL Albumin/Globulin Ratio (1.3-2.8) Urine Color Urine Appearance Urine pH (5.0-8.0) Ur Specific [place] (1.001-1.035) Urine Protein (NEGATIVE) mg/dL Urine Glucose (UA) (NEGATIVE) mg/dL Urine Ketones (NEGATIVE) mg/dL Urine Occult Blood (NEGATIVE) Urine Nitrite (NEGATIVE) Urine Bilirubin (NEGATIVE) Urine Urobilinogen (<2.0) EU/dL Ur Leukocyte Esterase (NEGATIVE) Urine RBC (0-2/HPF) Urine WBC (0-5/HPF) Ur Epithelial Cells (NONE-FEW) Urine Bacteria (NEGATIVE) Digoxin (0.8-2.0) ng/mL Med Orders - Current: Current Medications Albuterol/Ipratropium (Duoneb 3.0-0.5 Mg/3 Ml) 3 ml NEB Q6HRRT ADRIAN Last Admin: 09/02/17 11:31 Dose: 3 ml Amiodarone HCl (Cordarone) 200 mg PO Q8H COUNTS INCLUDE 234 BEDS AT THE [facility] Last Admin: 09/02/17 09:57 Dose: 200 mg Bisacodyl (Dulcolax) 10 mg RECTAL DAILY PRN PRN Reason: Constipation Enoxaparin Sodium (Lovenox) 40 mg SUBCUT DAILY COUNTS INCLUDE 234 BEDS AT THE [facility] Last Admin: 09/02/17 09:59 Dose: 40 mg Furosemide (Lasix) 40 mg IV BID COUNTS INCLUDE 234 BEDS AT THE [facility] Last Admin: 09/02/17 09:53 Dose: 40 mg Cefepime HCl 1 gm/ Premix 50 mls @ 100 mls/hr IV Q12H COUNTS INCLUDE 234 BEDS AT THE [facility] Last Admin: 09/02/17 07:30 Dose: 100 mls/hr Vancomycin HCl 1,750 mg/ (Sodium Chloride) 500 mls @ 250 mls/hr IV Q36H COUNTS INCLUDE 234 BEDS AT THE [facility] Last Admin: 09/01/17 21:07 Dose: 250 mls/hr Amiodarone HCl/Dextrose 150 mg (/ Premix) 100 mls @ 600 mls/hr IV .BOLUS COUNTS INCLUDE 234 BEDS AT THE [facility] Last Admin: 08/30/17 15:24 Dose: 600 mls/hr Insulin Aspart (Novolog) 0 unit SUBCUT TIDAC COUNTS INCLUDE 234 BEDS AT THE [facility] PRN Reason: Protocol Last Admin: 09/02/17 11:44 Dose: 9 units Levalbuterol HCl (Xopenex) 0.63 mg NEB Q4HRRT PRN PRN Reason: Shortness of Breath Last Admin: 09/01/17 04:46 Dose: 0.63 mg Melatonin (Melatonin) 3 mg PO BEDTIME PRN PRN Reason: Other Last Admin: 09/01/17 21:07 Dose: 3 mg Metoprolol Tartrate (Lopressor) 5 mg IVPUSH Q6H PRN PRN Reason: Hypertension Last Admin: 09/02/17 05:19 Dose: 5 mg Morphine Sulfate (Morphine) 2 mg IVPUSH Q4H PRN PRN Reason: Dyspnea Last Admin: 09/02/17 14:12 Dose: 2 mg Ondansetron HCl (Zofran) 4 mg IVPUSH Q4H PRN PRN Reason: Nausea Polyethylene Glycol (Miralax) 17 gm PO DAILY PRN PRN Reason: Constipation Sodium Chloride (Saline Flush) 10 ml FLUSH ASDIRECTED PRN PRN Reason: Keep Vein Open Sodium Chloride (Saline Flush) 2.5 ml FLUSH ASDIRECTED PRN PRN Reason: Keep Vein Open Sodium Chloride (Summers Nasal [place]) 1 ml [place] QID PRN PRN Reason: Congestion Vancomycin HCl (Pharmacy To Dose - Vancomycin) 1 dose .XX ASDIRECTED ADRIAN Discontinued Medications Amiodarone HCl (Cordarone) 200 mg PO Q6H COUNTS INCLUDE 234 BEDS AT THE [facility] Last Admin: 08/28/17 18:10 Dose: Not Given Dextrose/Water (Dextrose 50% In Water) 50 ml IVPUSH ONETIME ONE Stop: 08/27/17 08:12 Last Admin: 08/27/17 08:43 Dose: 50 ml Digoxin (Lanoxin) 250 mcg IVPUSH ONETIME ONE Stop: 08/30/17 11:35 Last Admin: 08/30/17 11:40 Dose: 250 mcg Digoxin (Lanoxin) 1,000 mcg PO ONETIME ONE Stop: 08/31/17 08:25 Digoxin (Lanoxin) 500 mcg PO DAILY COUNTS INCLUDE 234 BEDS AT THE [facility] Last Admin: 09/02/17 10:43 Dose: Not Given Digoxin (Lanoxin) 250 mcg PO ONETIME ONE Stop: 08/31/17 14:01 Last Admin: 08/31/17 15:00 Dose: 250 mcg Digoxin (Lanoxin) 250 mcg PO ONETIME ONE Stop: 08/31/17 20:01 Last Admin: 08/31/17 19:54 Dose: 250 mcg Diltiazem HCl (Diltiazem) 10 mg IVPUSH ONETIME ONE Stop: 08/27/17 04:20 Last Admin: 08/27/17 04:26 Dose: 10 mg Diltiazem HCl (Diltiazem) 10 mg IVPUSH ONETIME ONE Stop: 08/27/17 06:53 Last Admin: 08/27/17 07:03 Dose: 10 mg Diltiazem HCl (Diltiazem) 10 mg IVPUSH Q4HR PRN PRN Reason: Arrhythmia Last Admin: 08/28/17 12:24 Dose: 10 mg Enoxaparin Sodium (Lovenox) 100 mg SUBCUT ONETIME ONE Stop: 08/27/17 04:35 Last Admin: 08/27/17 04:38 Dose: 100 mg Furosemide (Lasix) 60 mg IVPUSH NOW ONE Stop: 08/27/17 04:32 Last Admin: 08/27/17 04:33 Dose: 60 mg Furosemide (Lasix) Confirm Administered Dose 80 mg .ROUTE .STK-MED ONE Stop: 08/27/17 04:33 Last Admin: 08/27/17 05:11 Dose: Not Given Furosemide (Lasix) 80 mg IVPUSH BID COUNTS INCLUDE 234 BEDS AT THE [facility] Last Admin: 08/28/17 20:15 Dose: 80 mg Furosemide (Lasix) 40 mg IVPUSH NOW ONE Stop: 08/30/17 13:20 Last Admin: 08/30/17 13:38 Dose: 40 mg Furosemide (Lasix) 40 mg IVPUSH NOW ONE Stop: 08/31/17 07:24 Last Admin: 08/31/17 08:00 Dose: 40 mg Furosemide (Lasix) 80 mg IVPUSH NOW ONE Stop: 09/01/17 07:28 Last Admin: 09/01/17 08:16 Dose: 80 mg Hydralazine HCl (Apresoline) 10 mg IVPUSH ONETIME ONE Stop: 09/01/17 13:02 Last Admin: 09/01/17 13:21 Dose: 10 mg Hydralazine HCl (Apresoline) 10 mg IVPUSH ONETIME ONE Stop: 09/01/17 20:18 Last Admin: 09/01/17 20:33 Dose: 10 mg Piperacillin Sod/Tazobactam (Sod 3.375 gm/ Sodium Chloride) 50 mls @ 100 mls/ hr IV ONETIME ONE Stop: 08/27/17 04:47 Last Admin: 08/27/17 04:28 Dose: 100 mls/hr Levofloxacin/Dextrose 750 mg/ (Premix) 150 mls @ 100 mls/hr IV Q24H COUNTS INCLUDE 234 BEDS AT THE [facility] Last Admin: 08/29/17 08:20 Dose: Not Given Dextrose/Water (Dextrose 5% In Water) 1,000 mls @ 75 mls/hr IV ASDIRECTED COUNTS INCLUDE 234 BEDS AT THE [facility] Last Admin: 08/29/17 08:40 Dose: 75 mls/hr Vancomycin HCl 1,750 mg/ (Sodium Chloride) 500 mls @ 250 mls/hr IV Q24H COUNTS INCLUDE 234 BEDS AT THE [facility] Last Admin: 08/29/17 13:07 Dose: Not Given Amiodarone HCl/Dextrose (Nexterone In Dextrose 360 Mg/200 Ml) 360 mg in 200 mls @ 33.333 mls/hr IV ASDIRECTED COUNTS INCLUDE 234 BEDS AT THE [facility]; 1 MG/MIN PRN Reason: Protocol Amiodarone HCl/Dextrose 150 mg (/ Premix) 100 mls @ 600 mls/hr IV ASDIRECTED ONE Stop: 08/28/17 15:54 Last Admin: 08/28/17 17:51 Dose: Not Given Metoprolol Tartrate 10 mg/ (Sodium Chloride) 60 mls @ 100 mls/hr IV ONETIME ONE Stop: 08/28/17 17:31 Last Admin: 08/28/17 17:11 Dose: Not Given Magnesium Sulfate 4 gm/ Premix 100 mls @ 25 mls/hr IV ONETIME ONE Stop: 08/29/17 11:54 Last Admin: 08/29/17 09:26 Dose: 25 mls/hr Diltiazem HCl 100 mg/ Sodium (Chloride) 100 mls @ 5 mls/hr IV TITRATE ADRIAN; 5 MG /HR PRN Reason: Protocol Last Titration: 09/01/17 00:37 Dose: 10 mg/hr, 10 mls/hr Magnesium Sulfate 2 gm/ Premix 50 mls @ 50 mls/hr IV ONETIME ONE Stop: 08/30/17 14:18 Last Admin: 08/30/17 13:38 Dose: 50 mls/hr Dextrose/Sodium Chloride (Dextrose 5%-1/2 Ns) 1,000 mls @ 100 mls/hr IV ASDIRECTED ADRIAN Last Admin: 09/02/17 03:48 Dose: 100 mls/hr Magnesium Sulfate 4 gm/ Premix 100 mls @ 25 mls/hr IV ONETIME ONE Stop: 08/31/17 12:28 Last Admin: 08/31/17 09:04 Dose: 25 mls/hr Potassium Phosphate 15 mmole/ (Sodium Chloride) 255 mls @ 62.5 mls/hr IV NOW ONE Stop: 09/01/17 12:04 Last Admin: 09/01/17 08:14 Dose: 62.5 mls/hr Insulin Aspart (Novolog) 0 unit SUBCUT Q6H ADRIAN PRN Reason: Protocol Last Admin: 08/28/17 08:20 Dose: Not Given Lidocaine (Xylocaine-Mpf 2%) Confirm Administered Dose 5 ml .ROUTE .STK-MED ONE Stop: 08/30/17 08:54 Last Admin: 08/30/17 09:34 Dose: Not Given Metoprolol Tartrate (Lopressor) 5 mg IVPUSH ONETIME ONE Stop: 08/28/17 14:33 Last Admin: 08/28/17 15:00 Dose: 5 mg Metoprolol Tartrate (Lopressor) 10 mg IVPUSH ONETIME ONE Stop: 08/28/17 17:12 Last Admin: 08/28/17 17:24 Dose: 10 mg Morphine Sulfate (Morphine) 2 mg IVPUSH Q2H PRN PRN Reason: Pain (severe 7-10) Stop: 08/28/17 07:27 Morphine Sulfate (Morphine) 2 mg IVPUSH ONETIME ONE Stop: 08/31/17 10:40 Last Admin: 08/31/17 10:52 Dose: 2 mg Morphine Sulfate (Morphine) 2 mg IVPUSH ONETIME ONE Stop: 09/01/17 07:07 Last Admin: 09/01/17 07:23 Dose: 2 mg Morphine Sulfate (Morphine) 2 mg IVPUSH ONETIME ONE Stop: 09/01/17 13:40 Last Admin: 09/01/17 13:50 Dose: 2 mg Morphine Sulfate (Morphine) 2 mg IVPUSH ONETIME ONE Stop: 09/01/17 20:18 Last Admin: 09/01/17 20:33 Dose: 2 mg Potassium Chloride (Klor-Con M20) 40 meq PO ONETIME ONE Stop: 08/29/17 06:41 Last Admin: 08/29/17 06:52 Dose: 40 meq Potassium Chloride (Klor-Con M20) 40 meq PO ONETIME ONE Stop: 08/29/17 07:58 Potassium Chloride (Klor-Con M20) 40 meq PO ONETIME ONE Stop: 08/29/17 13:58 Last Admin: 08/29/17 14:47 Dose: 40 meq Potassium Chloride (Klor-Con M20) 40 meq PO ONETIME ONE Stop: 08/30/17 04:07 Last Admin: 08/30/17 04:16 Dose: 40 meq Potassium Chloride (Klor-Con M20) 40 meq PO ONETIME ONE Stop: 08/30/17 13:20 Last Admin: 08/30/17 13:38 Dose: 40 meq Potassium Chloride (Klor-Con M20) 40 meq PO ONETIME ONE Stop: 08/30/17 21:47 Last Admin: 08/30/17 22:11 Dose: 40 meq Potassium Chloride (Klor-Con M20) 40 meq PO ONETIME ONE Stop: 08/31/17 08:29 Last Admin: 08/31/17 09:03 Dose: 40 meq Potassium Chloride (Klor-Con M20) 40 meq PO ONETIME ONE Stop: 09/01/17 20:19 Last Admin: 09/01/17 20:33 Dose: 40 meq - Exam Quality Assessment: Supplemental Oxygen, Central Line/PICC General: Alert, Moderate Distress HEENT: Pupils Equal Neck: Supple Lungs: Decreased Breath Sounds, Other (On BiPAP. Lungs are clear to auscultation ) Cardiovascular: Regular Rhythm, Tachycardia GI/Abdominal Exam: Normal Bowel Sounds, Soft Extremities: Pedal Edema Peripheral Pulses: 2+: Posterior Tibial (L), Posterior Tibial (R) Skin: Warm Wound/Incisions: Healing Well - Problem List Review Problem List Initiated/Reviewed/Updated: Yes - Plan Plan:: Assessment: #1. Acute hypercapnic hypoxic respiratory failure currently on BiPAP #2. CHF exacerbation #3. Atrial fibrillation with RVR #4. Pneumonia with leukocytosis #5. Urinary tract infection-resolved #7. hyperglycemia secondary to Type 2 diabetes #8. Constipation Plan: #1. Discontinue Cardizem drip. Continue amiodarone. Initiate IV Lasix 40 mg twice a day #2. CBC, BMP ordered for tomorrow morning #3. Vancomycin, cefepime for pneumonia. Patient still has persistent leukocytosis. We will touch base pharmacy recommendations on possibly changing the antibiotic coverage. #4. Dulcolax for constipation #5. Touch base with patient's family again for management goals.
[2017-09-02] MEDS ORDERED: Potassium Chloride 20 MEQ Tab.ER PO SCH (15:45)
[2017-09-02] MEDS ORDERED: Piperacillin/Tazobactam 4.5 GM in Sodium Chloride 0.9% 100 ML IV SCH (16:00)
[2017-09-02] MEDS: Piperacillin/Tazobactam 4.5 GM in Sodium Chloride 0.9% 100 ML IV SCH (17:43)
[2017-09-03] MEDS: Piperacillin/Tazobactam 4.5 GM in Sodium Chloride 0.9% 100 ML IV SCH ×2 (00:06→05:01)
[2017-09-03] MEDS: Albuterol/Ipratropium 3.0-0.5 MG/3 ML Neb Soln NEB SCH ×4 (00:06→17:33)
[2017-09-03] MEDS: hydrALAZINE 20 MG/ML SDV IVPUSH PRN ×2 (00:06→18:04)
[2017-09-03] MEDS: Morphine 2 MG/ML Syringe IVPUSH PRN ×3 (00:31→14:24)
[2017-09-03] MEDS: Amiodarone 200 MG Tab PO SCH ×3 (01:05→17:05)
[2017-09-03] MEDS: Melatonin 3 MG Tab PO PRN (01:05)
[2017-09-03] MEDS: Metoprolol Tartrate 5 MG/5 ML SDV IVPUSH PRN (05:04)
[2017-09-03] MEDS: Insulin Aspart 100 Units/ML 3 ML Pen SUBCUT SCH ×3 (06:35→17:02)
--- NOTE | 2017-09-03 06:39 | PCM.PN ---
- General Info Date of Service: 09/03/17 Admission Dx/Problem (Free Text): Evaluated today at the bedside, patient was on BiPAP and appearing progressively lethargic compared to yesterday. She was able to answer yes or no questions. As per discussion by attending physician with family, it appears that the family is moving well towards comfort care in the near future with some discussions that still needs to take place. Digoxin level was elevated this morning. Pharmacy to adjust dosage Lasix scheduled IV 40 mg twice a day patient's complaint of constipation, Dulcolax was ordered Subjective Update: As per nursing patient has been more disoriented throughout the night and am. She continues to decline in mental status. On questioning she is confused but does follow commands. Reports no pain when asked but continues to say "ow" repeatedly. As per nursing she will repeat herself over and over for several minutes. Still taking oral meds without difficulty. Did try the Bipap early this morning but then pulled it off this morning only after a few minutes and refused it. Functional Status: Reports: Pain Controlled, Tolerating Diet - Review of Systems General: Reports: Weakness, Fatigue. Denies: Fever HEENT: Denies: Headaches, Visual Changes Pulmonary: Reports: Shortness of Breath, Pleuritic Chest Pain, Cough. Denies: Sputum, Hemoptysis Cardiovascular: Denies: Chest Pain, Palpitations, Edema Gastrointestinal: Denies: Abdominal Pain, Nausea, Vomiting Genitourinary: Denies: Dysuria, Hematuria Musculoskeletal: Reports: Arm Pain, Leg Pain. Denies: Neck Pain Neurological: Reports: Confusion. Denies: Dizziness, Headache Psychiatric: Reports: Confusion - Patient Data Vitals - Most Recent: Last Vital Signs Temp 98.4 F 09/03/17 04:00 Pulse 102 H 09/03/17 05:04 Resp 22 H 09/03/17 06:00 BP 173/76 H 09/03/17 06:00 Pulse Ox 96 09/03/17 06:00 Weight - Most Recent: 110.1 kg I&O - Last 24 Hours: Intake & Output 09/02/17 09/02/17 09/03/17 14:59 22:59 06:59 Intake Total 550 350 Output Total 2150 Balance 550 -1800 Lab Results Last 24 Hours: Laboratory Results - last 24 hr 09/02/17 09/02/17 09/02/17 Range/Units 06:26 06:26 06:26 WBC 14.53 H (4.0-11.0) K/uL RBC 3.43 L (4.30-5.90) M/uL Hgb 8.7 L (12.0-16.0) g/dL Hct 31.1 L (36.0-46.0) % MCV 90.7 (80.0-98.0) fL MCH 25.4 L (27.0-32.0) pg MCHC 28.0 L (31.0-37.0) g/dL RDW Std Deviation 59.0 (28.0-62.0) fl RDW Coeff of Leia 18 H (11.0-15.0) % Plt Count 421 H (150-400) K/uL MPV 11.20 (7.40-12.00) fL Neut % (Auto) 80.4 H (48.0-80.0) % Lymph % (Auto) 5.1 L (16.0-40.0) % [place] % (Auto) 11.1 (0.0-15.0) % Eos % (Auto) 3.0 (0.0-7.0) % Baso % (Auto) 0.4 (0.0-1.5) % Neut # (Auto) 11.7 H (1.4-5.7) K/uL Lymph # (Auto) 0.7 (0.6-2.4) K/uL [place] # (Auto) 1.6 H (0.0-0.8) K/uL Eos # (Auto) 0.4 (0.0-0.7) K/uL Baso # (Auto) 0.1 (0.0-0.1) K/uL Nucleated RBC % 1.0 /100WBC Nucleated RBCs # 0 K/uL Sodium 146 (136-146) mmol/L Potassium 3.8 (3.5-5.1) mmol/L Chloride 95 L (98-110) mmol/L Carbon Dioxide 43 H (21-31) mmol/L BUN 20 (6.0-23.0) mg/dL Creatinine 1.3 (0.6-1.5) mg/dL Est Cr Clr Drug Dosing 40.53 mL/min Estimated GFR (MDRD) 41.9 ml/min Glucose 337 H (60-110) mg/dL POC Glucose (60-110) mg/dL Calcium 8.1 L (8.8-10.8) mg/dL Total Bilirubin 0.3 (0.1-1.5) mg/dL AST 13 (5-40) IU/L ALT 21 (8-54) IU/L Alkaline Phosphatase 95 (40-150) Total Protein 5.0 L (6.0-8.0) g/dL Albumin 2.5 L (3.5-5.0) g/dL Globulin 2.5 (2.0-3.5) g/dL Albumin/Globulin Ratio 1.0 L (1.3-2.8) Urine Color Urine Appearance Urine pH (5.0-8.0) Ur Specific [place] (1.001-1.035) Urine Protein (NEGATIVE) mg/dL Urine Glucose (UA) (NEGATIVE) mg/dL Urine Ketones (NEGATIVE) mg/dL Urine Occult Blood (NEGATIVE) Urine Nitrite (NEGATIVE) Urine Bilirubin (NEGATIVE) Urine Urobilinogen (<2.0) EU/dL Ur Leukocyte Esterase (NEGATIVE) Urine RBC (0-2/HPF) Urine WBC (0-5/HPF) Ur Epithelial Cells (NONE-FEW) Urine Bacteria (NEGATIVE) Digoxin 3.29 H (0.8-2.0) ng/mL 09/02/17 09/02/17 09/02/17 Range/Units 10:25 11:41 17:24 WBC (4.0-11.0) K/uL RBC (4.30-5.90) M/uL Hgb (12.0-16.0) g/dL Hct (36.0-46.0) % MCV (80.0-98.0) fL MCH (27.0-32.0) pg MCHC (31.0-37.0) g/dL RDW Std Deviation (28.0-62.0) fl RDW Coeff of Leia (11.0-15.0) % Plt Count (150-400) K/uL MPV (7.40-12.00) fL Neut % (Auto) (48.0-80.0) % Lymph % (Auto) (16.0-40.0) % [place] % (Auto) (0.0-15.0) % Eos % (Auto) (0.0-7.0) % Baso % (Auto) (0.0-1.5) % Neut # (Auto) (1.4-5.7) K/uL Lymph # (Auto) (0.6-2.4) K/uL [place] # (Auto) (0.0-0.8) K/uL Eos # (Auto) (0.0-0.7) K/uL Baso # (Auto) (0.0-0.1) K/uL Nucleated RBC % /100WBC Nucleated RBCs # K/uL Sodium (136-146) mmol/L Potassium (3.5-5.1) mmol/L Chloride (98-110) mmol/L Carbon Dioxide (21-31) mmol/L BUN (6.0-23.0) mg/dL Creatinine (0.6-1.5) mg/dL Est Cr Clr Drug Dosing mL/min Estimated GFR (MDRD) ml/min Glucose (60-110) mg/dL POC Glucose 293 H 302 H (60-110) mg/dL Calcium (8.8-10.8) mg/dL Total Bilirubin (0.1-1.5) mg/dL AST (5-40) IU/L ALT (8-54) IU/L Alkaline Phosphatase (40-150) Total Protein (6.0-8.0) g/dL Albumin (3.5-5.0) g/dL Globulin (2.0-3.5) g/dL Albumin/Globulin Ratio (1.3-2.8) Urine Color YELLOW Urine Appearance CLEAR Urine pH 7.0 (5.0-8.0) Ur Specific [place] 1.010 (1.001-1.035) Urine Protein NEGATIVE (NEGATIVE) mg/dL Urine Glucose (UA) 100 H (NEGATIVE) mg/dL Urine Ketones NEGATIVE (NEGATIVE) mg/dL Urine Occult Blood NEGATIVE (NEGATIVE) Urine Nitrite NEGATIVE (NEGATIVE) Urine Bilirubin NEGATIVE (NEGATIVE) Urine Urobilinogen 0.2 (<2.0) EU/dL Ur Leukocyte Esterase TRACE (NEGATIVE) Urine RBC 0-1 (0-2/HPF) Urine WBC 1-2 (0-5/HPF) Ur Epithelial Cells RARE (NONE-FEW) Urine Bacteria RARE (NEGATIVE) Digoxin (0.8-2.0) ng/mL 09/03/17 Range/Units 06:32 WBC (4.0-11.0) K/uL RBC (4.30-5.90) M/uL Hgb (12.0-16.0) g/dL Hct (36.0-46.0) % MCV (80.0-98.0) fL MCH (27.0-32.0) pg MCHC (31.0-37.0) g/dL RDW Std Deviation (28.0-62.0) fl RDW Coeff of Leia (11.0-15.0) % Plt Count (150-400) K/uL MPV (7.40-12.00) fL Neut % (Auto) (48.0-80.0) % Lymph % (Auto) (16.0-40.0) % [place] % (Auto) (0.0-15.0) % Eos % (Auto) (0.0-7.0) % Baso % (Auto) (0.0-1.5) % Neut # (Auto) (1.4-5.7) K/uL Lymph # (Auto) (0.6-2.4) K/uL [place] # (Auto) (0.0-0.8) K/uL Eos # (Auto) (0.0-0.7) K/uL Baso # (Auto) (0.0-0.1) K/uL Nucleated RBC % /100WBC Nucleated RBCs # K/uL Sodium (136-146) mmol/L Potassium (3.5-5.1) mmol/L Chloride (98-110) mmol/L Carbon Dioxide (21-31) mmol/L BUN (6.0-23.0) mg/dL Creatinine (0.6-1.5) mg/dL Est Cr Clr Drug Dosing mL/min Estimated GFR (MDRD) ml/min Glucose (60-110) mg/dL POC Glucose 307 H (60-110) mg/dL Calcium (8.8-10.8) mg/dL Total Bilirubin (0.1-1.5) mg/dL AST (5-40) IU/L ALT (8-54) IU/L Alkaline Phosphatase (40-150) Total Protein (6.0-8.0) g/dL Albumin (3.5-5.0) g/dL Globulin (2.0-3.5) g/dL Albumin/Globulin Ratio (1.3-2.8) Urine Color Urine Appearance Urine pH (5.0-8.0) Ur Specific [place] (1.001-1.035) Urine Protein (NEGATIVE) mg/dL Urine Glucose (UA) (NEGATIVE) mg/dL Urine Ketones (NEGATIVE) mg/dL Urine Occult Blood (NEGATIVE) Urine Nitrite (NEGATIVE) Urine Bilirubin (NEGATIVE) Urine Urobilinogen (<2.0) EU/dL Ur Leukocyte Esterase (NEGATIVE) Urine RBC (0-2/HPF) Urine WBC (0-5/HPF) Ur Epithelial Cells (NONE-FEW) Urine Bacteria (NEGATIVE) Digoxin (0.8-2.0) ng/mL Med Orders - Current: Current Medications Albuterol/Ipratropium (Duoneb 3.0-0.5 Mg/3 Ml) 3 ml NEB Q6HRRT [facility] Last Admin: 09/03/17 06:16 Dose: 3 ml Amiodarone HCl (Cordarone) 200 mg PO Q8H [facility] Last Admin: 09/03/17 01:05 Dose: 200 mg Bisacodyl (Dulcolax) 10 mg RECTAL DAILY PRN PRN Reason: Constipation Enoxaparin Sodium (Lovenox) 40 mg SUBCUT DAILY [facility] Last Admin: 09/02/17 09:59 Dose: 40 mg Furosemide (Lasix) 40 mg IV BID [facility] Last Admin: 09/02/17 20:52 Dose: 40 mg Hydralazine HCl (Apresoline) 10 mg IVPUSH Q6H PRN PRN Reason: Hypertension Last Admin: 09/03/17 00:06 Dose: 10 mg Vancomycin HCl 1,750 mg/ (Sodium Chloride) 500 mls @ 250 mls/hr IV Q36H [facility] Last Admin: 09/01/17 21:07 Dose: 250 mls/hr Amiodarone HCl/Dextrose 150 mg (/ Premix) 100 mls @ 600 mls/hr IV .BOLUS [facility] Last Admin: 08/30/17 15:24 Dose: 600 mls/hr Piperacillin Sod/Tazobactam (Sod 4.5 gm/ Sodium Chloride) 100 mls @ 200 mls/hr IV Q6H [facility] Last Admin: 09/03/17 05:01 Dose: 200 mls/hr Insulin Aspart (Novolog) 0 unit SUBCUT TIDAC [facility]RIAN PRN Reason: Protocol Last Admin: 09/03/17 06:35 Dose: 12 units Levalbuterol HCl (Xopenex) 0.63 mg NEB Q4HRRT PRN PRN Reason: Shortness of Breath Last Admin: 09/01/17 04:46 Dose: 0.63 mg Melatonin (Melatonin) 3 mg PO BEDTIME PRN PRN Reason: Other Last Admin: 09/03/17 01:05 Dose: 3 mg Metoprolol Tartrate (Lopressor) 5 mg IVPUSH Q6H PRN PRN Reason: Hypertension Last Admin: 09/03/17 05:04 Dose: 5 mg Morphine Sulfate (Morphine) 2 mg IVPUSH Q4H PRN PRN Reason: Dyspnea Last Admin: 09/03/17 05:03 Dose: 2 mg Ondansetron HCl (Zofran) 4 mg IVPUSH Q4H PRN PRN Reason: Nausea Polyethylene Glycol (Miralax) 17 gm PO DAILY PRN PRN Reason: Constipation Last Admin: 09/02/17 18:07 Dose: 17 gm Potassium Chloride (Klor-Con M20) 20 meq PO DAILY [facility] Last Admin: 09/02/17 17:31 Dose: 20 meq Sodium Chloride (Saline Flush) 10 ml FLUSH ASDIRECTED PRN PRN Reason: Keep Vein Open Sodium Chloride (Saline Flush) 2.5 ml FLUSH ASDIRECTED PRN PRN Reason: Keep Vein Open Sodium Chloride ([place] Nasal [place]) 1 ml [place] QID PRN PRN Reason: Congestion Vancomycin HCl (Pharmacy To Dose - Vancomycin) 1 dose .XX ASDIRECTED [facility] Discontinued Medications Amiodarone HCl (Cordarone) 200 mg PO Q6H [facility] Last Admin: 08/28/17 18:10 Dose: Not Given Dextrose/Water (Dextrose 50% In Water) 50 ml IVPUSH ONETIME ONE Stop: 08/27/17 08:12 Last Admin: 08/27/17 08:43 Dose: 50 ml Digoxin (Lanoxin) 250 mcg IVPUSH ONETIME ONE Stop: 08/30/17 11:35 Last Admin: 08/30/17 11:40 Dose: 250 mcg Digoxin (Lanoxin) 1,000 mcg PO ONETIME ONE Stop: 08/31/17 08:25 Digoxin (Lanoxin) 500 mcg PO DAILY [facility] Last Admin: 09/02/17 10:43 Dose: Not Given Digoxin (Lanoxin) 250 mcg PO ONETIME ONE Stop: 08/31/17 14:01 Last Admin: 08/31/17 15:00 Dose: 250 mcg Digoxin (Lanoxin) 250 mcg PO ONETIME ONE Stop: 08/31/17 20:01 Last Admin: 08/31/17 19:54 Dose: 250 mcg Diltiazem HCl (Diltiazem) 10 mg IVPUSH ONETIME ONE Stop: 08/27/17 04:20 Last Admin: 08/27/17 04:26 Dose: 10 mg Diltiazem HCl (Diltiazem) 10 mg IVPUSH ONETIME ONE Stop: 08/27/17 06:53 Last Admin: 08/27/17 07:03 Dose: 10 mg Diltiazem HCl (Diltiazem) 10 mg IVPUSH Q4HR PRN PRN Reason: Arrhythmia Last Admin: 08/28/17 12:24 Dose: 10 mg Enoxaparin Sodium (Lovenox) 100 mg SUBCUT ONETIME ONE Stop: 08/27/17 04:35 Last Admin: 08/27/17 04:38 Dose: 100 mg Furosemide (Lasix) 60 mg IVPUSH NOW ONE Stop: 08/27/17 04:32 Last Admin: 08/27/17 04:33 Dose: 60 mg Furosemide (Lasix) Confirm Administered Dose 80 mg .ROUTE .STK-MED ONE Stop: 08/27/17 04:33 Last Admin: 08/27/17 05:11 Dose: Not Given Furosemide (Lasix) 80 mg IVPUSH BID [facility] Last Admin: 08/28/17 20:15 Dose: 80 mg Furosemide (Lasix) 40 mg IVPUSH NOW ONE Stop: 08/30/17 13:20 Last Admin: 08/30/17 13:38 Dose: 40 mg Furosemide (Lasix) 40 mg IVPUSH NOW ONE Stop: 08/31/17 07:24 Last Admin: 08/31/17 08:00 Dose: 40 mg Furosemide (Lasix) 80 mg IVPUSH NOW ONE Stop: 09/01/17 07:28 Last Admin: 09/01/17 08:16 Dose: 80 mg Hydralazine HCl (Apresoline) 10 mg IVPUSH ONETIME ONE Stop: 09/01/17 13:02 Last Admin: 09/01/17 13:21 Dose: 10 mg Hydralazine HCl (Apresoline) 10 mg IVPUSH ONETIME ONE Stop: 09/01/17 20:18 Last Admin: 09/01/17 20:33 Dose: 10 mg Piperacillin Sod/Tazobactam (Sod 3.375 gm/ Sodium Chloride) 50 mls @ 100 mls/ hr IV ONETIME ONE Stop: 08/27/17 04:47 Last Admin: 08/27/17 04:28 Dose: 100 mls/hr Levofloxacin/Dextrose 750 mg/ (Premix) 150 mls @ 100 mls/hr IV Q24H [facility] Last Admin: 08/29/17 08:20 Dose: Not Given Dextrose/Water (Dextrose 5% In Water) 1,000 mls @ 75 mls/hr IV ASDIRECTED [facility] Last Admin: 08/29/17 08:40 Dose: 75 mls/hr Vancomycin HCl 1,750 mg/ (Sodium Chloride) 500 mls @ 250 mls/hr IV Q24H [facility] Last Admin: 08/29/17 13:07 Dose: Not Given Amiodarone HCl/Dextrose (Nexterone In Dextrose 360 Mg/200 Ml) 360 mg in 200 mls @ 33.333 mls/hr IV ASDIRECTED [facility]; 1 MG/MIN PRN Reason: Protocol Amiodarone HCl/Dextrose 150 mg (/ Premix) 100 mls @ 600 mls/hr IV ASDIRECTED ONE Stop: 08/28/17 15:54 Last Admin: 08/28/17 17:51 Dose: Not Given Metoprolol Tartrate 10 mg/ (Sodium Chloride) 60 mls @ 100 mls/hr IV ONETIME ONE Stop: 08/28/17 17:31 Last Admin: 08/28/17 17:11 Dose: Not Given Magnesium Sulfate 4 gm/ Premix 100 mls @ 25 mls/hr IV ONETIME ONE Stop: 08/29/17 11:54 Last Admin: 08/29/17 09:26 Dose: 25 mls/hr Cefepime HCl 1 gm/ Premix 50 mls @ 100 mls/hr IV Q12H [facility] Last Admin: 09/02/17 07:30 Dose: 100 mls/hr Diltiazem HCl 100 mg/ Sodium (Chloride) 100 mls @ 5 mls/hr IV TITRATE ADRIAN; 5 MG /HR PRN Reason: Protocol Last Titration: 09/01/17 00:37 Dose: 10 mg/hr, 10 mls/hr Magnesium Sulfate 2 gm/ Premix 50 mls @ 50 mls/hr IV ONETIME ONE Stop: 08/30/17 14:18 Last Admin: 08/30/17 13:38 Dose: 50 mls/hr Dextrose/Sodium Chloride (Dextrose 5%-1/2 Ns) 1,000 mls @ 100 mls/hr IV ASDIRECTED [facility] Last Admin: 09/02/17 03:48 Dose: 100 mls/hr Magnesium Sulfate 4 gm/ Premix 100 mls @ 25 mls/hr IV ONETIME ONE Stop: 08/31/17 12:28 Last Admin: 08/31/17 09:04 Dose: 25 mls/hr Potassium Phosphate 15 mmole/ (Sodium Chloride) 255 mls @ 62.5 mls/hr IV NOW ONE Stop: 09/01/17 12:04 Last Admin: 09/01/17 08:14 Dose: 62.5 mls/hr Piperacillin Sod/Tazobactam (Sod 4.5 gm/ Sodium Chloride) 100 mls @ 200 mls/hr IV Q6H [facility] Last Admin: 09/02/17 19:45 Dose: Not Given Insulin Aspart (Novolog) 0 unit SUBCUT Q6H [facility] PRN Reason: Protocol Last Admin: 08/28/17 08:20 Dose: Not Given Lidocaine (Xylocaine-Mpf 2%) Confirm Administered Dose 5 ml .ROUTE .STK-MED ONE Stop: 08/30/17 08:54 Last Admin: 08/30/17 09:34 Dose: Not Given Metoprolol Tartrate (Lopressor) 5 mg IVPUSH ONETIME ONE Stop: 08/28/17 14:33 Last Admin: 08/28/17 15:00 Dose: 5 mg Metoprolol Tartrate (Lopressor) 10 mg IVPUSH ONETIME ONE Stop: 08/28/17 17:12 Last Admin: 08/28/17 17:24 Dose: 10 mg Morphine Sulfate (Morphine) 2 mg IVPUSH Q2H PRN PRN Reason: Pain (severe 7-10) Stop: 08/28/17 07:27 Morphine Sulfate (Morphine) 2 mg IVPUSH ONETIME ONE Stop: 08/31/17 10:40 Last Admin: 08/31/17 10:52 Dose: 2 mg Morphine Sulfate (Morphine) 2 mg IVPUSH ONETIME ONE Stop: 09/01/17 07:07 Last Admin: 09/01/17 07:23 Dose: 2 mg Morphine Sulfate (Morphine) 2 mg IVPUSH ONETIME ONE Stop: 09/01/17 13:40 Last Admin: 09/01/17 13:50 Dose: 2 mg Morphine Sulfate (Morphine) 2 mg IVPUSH ONETIME ONE Stop: 09/01/17 20:18 Last Admin: 09/01/17 20:33 Dose: 2 mg Potassium Chloride (Klor-Con M20) 40 meq PO ONETIME ONE Stop: 08/29/17 06:41 Last Admin: 08/29/17 06:52 Dose: 40 meq Potassium Chloride (Klor-Con M20) 40 meq PO ONETIME ONE Stop: 08/29/17 07:58 Potassium Chloride (Klor-Con M20) 40 meq PO ONETIME ONE Stop: 08/29/17 13:58 Last Admin: 08/29/17 14:47 Dose: 40 meq Potassium Chloride (Klor-Con M20) 40 meq PO ONETIME ONE Stop: 08/30/17 04:07 Last Admin: 08/30/17 04:16 Dose: 40 meq Potassium Chloride (Klor-Con M20) 40 meq PO ONETIME ONE Stop: 08/30/17 13:20 Last Admin: 08/30/17 13:38 Dose: 40 meq Potassium Chloride (Klor-Con M20) 40 meq PO ONETIME ONE Stop: 08/30/17 21:47 Last Admin: 08/30/17 22:11 Dose: 40 meq Potassium Chloride (Klor-Con M20) 40 meq PO ONETIME ONE Stop: 08/31/17 08:29 Last Admin: 08/31/17 09:03 Dose: 40 meq Potassium Chloride (Klor-Con M20) 40 meq PO ONETIME ONE Stop: 09/01/17 20:19 Last Admin: 09/01/17 20:33 Dose: 40 meq - Exam Quality Assessment: Supplemental Oxygen, DVT Prophylaxis General: Alert, Mild Distress HEENT: Pupils Equal, Pupils Reactive, EOMI, Mucous Membr. Moist/[place]: Supple Lungs: Decreased Breath Sounds, Crackles Cardiovascular: Regular Rate, Murmurs GI/Abdominal Exam: Normal Bowel Sounds, Soft, Non-Tender, No Organomegaly Back Exam: Normal Inspection Extremities: Normal Inspection, Normal Capillary Refill, Pedal Edema, Leg Pain, Limited Range of Motion. No: Kranthi's Sign, Redness Peripheral Pulses: 1+: Radial (L), Radial (R), Dorsalis Pedis (L), Dorsalis Pedis (R) Skin: Warm, Dry, Intact Neurological: No: Normal Speech, Normal Tone Psy/Mental Status: Alert, Labile Mood - Problem List & Annotations (1) Respiratory failure SNOMED Code(s): 547471756 Code(s): J96.90 - RESPIRATORY FAILURE, UNSP, UNSP W HYPOXIA OR HYPERCAPNIA Status: Acute Priority: High Current Visit: Yes Qualifiers: Chronicity: acute on chronic Respiratory failure complication: hypoxia and hypercapnia Qualified Code(s): J96.21 - Acute and chronic respiratory failure with hypoxia; J96.22 - Acute and chronic respiratory failure with hypercapnia; J96.22 - Acute and chronic respiratory failure with hypercapnia; J96.22 - Acute and chronic respiratory failure with hypercapnia (2) Anasarca SNOMED Code(s): 345919949 Code(s): R60.1 - GENERALIZED EDEMA Status: Chronic Priority: High Current Visit: Yes (3) Atrial fibrillation with RVR SNOMED Code(s): 467582398920849 Code(s): I48.91 - UNSPECIFIED ATRIAL FIBRILLATION Status: Resolved Priority: High Current Visit: Yes Annotation/Comment:: Patient rate controlled with diltiazem in the emergency department (4) CHF (congestive heart failure) SNOMED Code(s): 74356170 Code(s): I50.9 - HEART FAILURE, UNSPECIFIED Status: Chronic Priority: High Current Visit: Yes Qualifiers: Congestive heart failure type: systolic Congestive heart failure chronicity : unspecified congestive heart failure chronicity Qualified Code(s): I50.20 - Unspecified systolic (congestive) heart failure (5) Dyspnea SNOMED Code(s): 863938586 Code(s): R06.00 - DYSPNEA, UNSPECIFIED Status: Acute Priority: High Current Visit: Yes Qualifiers: Dyspnea type: shortness of breath Qualified Code(s): R06.02 - Shortness of breath; R06.00 - Dyspnea, unspecified; R06.01 - Orthopnea (6) HTN (hypertension) SNOMED Code(s): 18569023 Code(s): I10 - ESSENTIAL (PRIMARY) HYPERTENSION Status: Chronic Priority : High Current Visit: Yes Qualifiers: Hypertension type: essential hypertension Qualified Code(s): I10 - Essential (primary) hypertension (7) Hypernatremia SNOMED Code(s): 38004935 Code(s): E87.0 - HYPEROSMOLALITY AND HYPERNATREMIA Status: Resolved Priority: Medium Current Visit: Yes (8) Leukocytosis SNOMED Code(s): 921800314 Code(s): D72.829 - ELEVATED WHITE BLOOD CELL COUNT, UNSPECIFIED Status: Acute Priority: High Current Visit: Yes Qualifiers: Leukocytosis type: unspecified Qualified Code(s): D72.829 - Elevated white blood cell count, unspecified (9) Pulmonary infiltrate on chest x-ray SNOMED Code(s): 580465576 Code(s): R91.8 - OTHER NONSPECIFIC ABNORMAL FINDING OF LUNG FIELD Status: Acute Priority: High Current Visit: Yes (10) UTI (urinary tract infection) SNOMED Code(s): 42203144 Code(s): N39.0 - URINARY TRACT INFECTION, SITE NOT SPECIFIED Status: Acute Priority: High Current Visit: Yes Qualifiers: Urinary tract infection type: acute cystitis (11) Chronic kidney disease, stage II (mild) SNOMED Code(s): 636220851 Code(s): N18.2 - CHRONIC KIDNEY DISEASE, STAGE 2 (MILD) Status: Chronic Priority: Medium Current Visit: Yes (12) DM type 2 (diabetes mellitus, type 2) SNOMED Code(s): 32181522 Code(s): E11.9 - TYPE 2 DIABETES MELLITUS WITHOUT COMPLICATIONS Status: Chronic Priority: High Current Visit: Yes Qualifiers: Diabetes mellitus complication status: with neurologic complications Diabetes mellitus complication detail: with other neurological complication Diabetes mellitus supervisor intermediates insulin use: with supervisor intermediates use Qualified Code(s) : E11.49 - Type 2 diabetes mellitus with other diabetic neurological complication; Z79.4 - care home (current) use of insulin (13) Morbid obesity SNOMED Code(s): 619417780 Code(s): E66.01 - MORBID (SEVERE) OBESITY DUE TO EXCESS CALORIES Status: Chronic Priority: High Current Visit: Yes - Problem List Review Problem List Initiated/Reviewed/Updated: Yes - My Orders Last 24 Hours: My Active Orders 09/02/17 15:19 Polyethylene Glycol 3350 [MiraLAX] 17 gm PO DAILY PRN - Plan Plan:: 56-year-old female admitted 08/27/17 for acute hypoxic respiratory failure, CHF exacerbation, pneumonia, and UTI with past medical history of CVA, A. fib, CAD, DM 2, and hypertension. Hypercapnic hypoxic respiratory failure: Patient continues to refuse BiPAP and I feel that her CO2 has been continuing to rise. She is DNR/DNI and it is going to be difficult to relieve her hypercapnic resp failure without mechanical ventilation. This has been communicated with the family who are leaning towards comfort care at this time. We will talk with them later this afternoon. CHF exacerbation: Will continue Lasix 40 mg BID and monitor closely. A-fib with RVR: Resolved have discontinued cardizem drip will continue amiodarone and restart some of her home meds. Hold beta chris as need for hr. Pneumonia: Increased WBC to 18k this morning have talked with pharmacy and decided to start Levaquin and Merapenim. UTI: Resolved. Plan for possible comfort care today if able to talk with family and they are in agreement. Dispo: 2-3 days pending.
[2017-09-03] MEDS ORDERED: Calcium Carbonate 500 MG Tab.Chew PO PRN ×2 (06:43→07:06)
[2017-09-03] MEDS ORDERED: LORazepam 0.5 MG Tab PO PRN (06:43)
[2017-09-03] MEDS ORDERED: Polyethylene Glycol 3350 Powder 17 GM Packet PO PRN (06:43)
[2017-09-03] MEDS ORDERED: Calcium Carbonate 500 MG Tab.Chew PO ONE (06:52)
[2017-09-03] MEDS ORDERED: fentaNYL 12 MCG/HR Transdermal Patch TRDERM SCH (07:00)
[2017-09-03] MEDS: Levothyroxine 50 MCG Tab PO SCH (07:50)
[2017-09-03] MEDS: Omeprazole 20 MG Cap.CR PO SCH (08:16)
[2017-09-03] MEDS: Potassium Chloride 10% 20 MEQ/15 ML Soln 30 ML UD Cup PO SCH (08:16)
[2017-09-03] MEDS: Nystatin Topical Powder 15 GM Bottle TOP SCH ×2 (08:16→21:50)
[2017-09-03] MEDS: Metolazone 5 MG Tab PO SCH (08:17)
[2017-09-03] MEDS: Torsemide 20 MG Tab PO SCH ×2 (08:17→20:57)
[2017-09-03] MEDS: Diltiazem 120 MG Cap.CD PO SCH (08:18)
[2017-09-03] MEDS: Enoxaparin 40 MG/0.4 ML Syringe SUBCUT SCH (08:18)
[2017-09-03] MEDS: Docusate Sodium 100 MG Cap PO PRN (08:18)
[2017-09-03] MEDS: Aspirin 325 MG Tab PO SCH (08:19)
[2017-09-03] MEDS: Furosemide 40 MG/4 ML VIAL IV SCH ×2 (08:19→20:58)
[2017-09-03] MEDS: PARoxetine 20 MG Tab PO SCH (08:19)
[2017-09-03] MEDS: Ferrous Sulfate 325 MG Tab PO SCH (08:19)
[2017-09-03] MEDS: Levofloxacin/Dextrose 5%-Water 750 MG in Premix Bag 1 BAG IV SCH (11:40)
[2017-09-03] MEDS ORDERED: Meropenem 1 GM in Sodium Chloride 0.9% 100 ML IV SCH (12:00)
[2017-09-03] MEDS: Meropenem 1 GM in Sodium Chloride 0.9% 100 ML IV SCH (13:20)
[2017-09-03] MEDS: Metoprolol Tartrate 50 MG Tab PO SCH ×2 (13:26→21:47)
--- NOTE | 2017-09-03 15:49 | PCM.SN ---
- Free Text/Narrative Note: Talked with Thu daughter of patient about their mothers status and they reported that her and her brother Alesha were still discussing the comfort measures and would like more time to make an ultimate decision.
[2017-09-03] MEDS: Insulin Glargine,Human Rec. Analog 100 Units/ML 3 ML Pen SUBCUT SCH (20:56)
[2017-09-03] MEDS: atorvaSTATin 40 MG Tab PO SCH (20:57)
[2017-09-03] MEDS: Temazepam 15 MG Cap PO SCH (20:57)
[2017-09-04] MEDS: Albuterol/Ipratropium 3.0-0.5 MG/3 ML Neb Soln NEB SCH ×4 (00:06→18:03)
[2017-09-04] MEDS: Amiodarone 200 MG Tab PO SCH ×3 (02:26→17:01)
[2017-09-04] MEDS: Meropenem 1 GM in Sodium Chloride 0.9% 100 ML IV SCH ×2 (02:26→14:45)
[2017-09-04] MEDS: Metoprolol Tartrate 50 MG Tab PO SCH ×3 (06:36→21:00)
[2017-09-04] MEDS: Omeprazole 20 MG Cap.CR PO SCH (06:37)
[2017-09-04] MEDS: Levothyroxine 50 MCG Tab PO SCH (06:37)
[2017-09-04] MEDS: Insulin Aspart 100 Units/ML 3 ML Pen SUBCUT SCH ×3 (06:46→17:01)
--- NOTE | 2017-09-04 07:03 | PCM.PN ---
- General Info Date of Service: 09/04/17 Admission Dx/Problem (Free Text): Evaluated today at the bedside, patient was on BiPAP and appearing progressively lethargic compared to yesterday. She was able to answer yes or no questions. As per discussion by attending physician with family, it appears that the family is moving well towards comfort care in the near future with some discussions that still needs to take place. Digoxin level was elevated this morning. Pharmacy to adjust dosage Lasix scheduled IV 40 mg twice a day patient's complaint of constipation, Dulcolax was ordered Subjective Update: Patient sleeping comfortably on nasal cannula this am. As per nursing has been up all night the last two nights with very little rest. Awakes when spoken to and follows commands. So inappropriate responses to questions but states she is comfortable. Functional Status: Reports: Pain Controlled, Tolerating Diet - Review of Systems General: Denies: Fever Systems Review Comment:: Unable to achieve accurate ROS secondary to patient's AMS - Patient Data Vitals - Most Recent: Last Vital Signs Temp 97.8 F 09/04/17 04:00 Pulse 81 09/04/17 06:36 Resp 09/04/17 06:00 BP 153/66 H 09/04/17 06:36 Pulse Ox 94 L 09/04/17 06:00 Weight - Most Recent: 100 kg I&O - Last 24 Hours: Intake & Output 09/03/17 09/04/17 09/04/17 22:59 06:59 14:59 Intake Total 350 Output Total 3600 Balance -3250 Lab Results Last 24 Hours: Laboratory Results - last 24 hr 09/03/17 09/03/17 09/03/17 Range/Units 05:53 11:45 16:42 Carbon Dioxide 40 H (21-31) mmol/L POC Glucose 342 H 443 H (60-110) mg/dL 09/03/17 09/04/17 Range/Units 20:43 06:40 Carbon Dioxide (21-31) mmol/L POC Glucose 302 H 237 H (60-110) mg/dL Med Orders - Current: Current Medications Albuterol/Ipratropium (Duoneb 3.0-0.5 Mg/3 Ml) 3 ml NEB Q6HRRT ADRIAN Last Admin: 09/04/17 05:56 Dose: 3 ml Amiodarone HCl (Cordarone) 200 mg PO Q8H [facility] Last Admin: 09/04/17 02:26 Dose: 200 mg Aspirin (Aspirin) 325 mg PO DAILY [facility] Last Admin: 09/03/17 08:19 Dose: 325 mg Atorvastatin Calcium (Lipitor) 40 mg PO BEDTIME [facility] Last Admin: 09/03/17 20:57 Dose: 40 mg Bisacodyl (Dulcolax) 10 mg RECTAL DAILY PRN PRN Reason: Constipation Calcium Carbonate/Glycine (Tums) 500 mg PO Q8HR PRN PRN Reason: Gas Last Admin: 09/03/17 08:19 Dose: 500 mg Clonidine HCl (Catapres-Tts 1) 0.3 mg TOP Q7D [facility] Diltiazem HCl (Cardizem Cd) 120 mg PO DAILY [facility] Last Admin: 09/03/17 08:18 Dose: 120 mg Docusate Sodium (Colace) 100 mg PO BID PRN PRN Reason: Constipation Last Admin: 09/03/17 08:18 Dose: 100 mg Enoxaparin Sodium (Lovenox) 40 mg SUBCUT DAILY [facility] Last Admin: 09/03/17 08:18 Dose: 40 mg Fentanyl (Duragesic) 12 mcg TRDERM Q72H [facility] Last Admin: 09/03/17 08:00 Dose: 12 mcg Ferrous Sulfate (Ferrous Sulfate) 325 mg PO DAILY [facility] Last Admin: 09/03/17 08:19 Dose: 325 mg Furosemide (Lasix) 40 mg IV BID [facility] Last Admin: 09/03/17 20:58 Dose: 40 mg Hydralazine HCl (Apresoline) 10 mg IVPUSH Q6H PRN PRN Reason: Hypertension Last Admin: 09/03/17 18:04 Dose: 10 mg Vancomycin HCl 1,750 mg/ (Sodium Chloride) 500 mls @ 250 mls/hr IV Q36H [facility] Last Admin: 09/03/17 10:00 Dose: 250 mls/hr Amiodarone HCl/Dextrose 150 mg (/ Premix) 100 mls @ 600 mls/hr IV .BOLUS [facility] Last Admin: 08/30/17 15:24 Dose: 600 mls/hr Levofloxacin/Dextrose 750 mg/ (Premix) 150 mls @ 100 mls/hr IV Q48H [facility] Last Admin: 09/03/17 11:40 Dose: 100 mls/hr Meropenem 1 gm/ Sodium (Chloride) 100 mls @ 200 mls/hr IV Q12H [facility] Last Admin: 09/04/17 02:26 Dose: 200 mls/hr Insulin Aspart (Novolog) 0 unit SUBCUT TIDAC [facility] PRN Reason: Protocol Last Admin: 09/04/17 06:46 Dose: 6 units Insulin Glargine (Lantus Solostar) 20 units SUBCUT BEDTIME [facility] Last Admin: 09/03/17 20:56 Dose: 20 units Levalbuterol HCl (Xopenex) 0.63 mg NEB Q4HRRT PRN PRN Reason: Shortness of Breath Last Admin: 09/01/17 04:46 Dose: 0.63 mg Levothyroxine Sodium (Levothyroxine) 75 mcg PO MOWEFR@0700 [facility] Levothyroxine Sodium (Synthroid) 50 mcg PO SUTUTHSA@0700 [facility] Last Admin: 09/04/17 06:37 Dose: 50 mcg Lorazepam (Ativan) 0.25 mg PO BID PRN PRN Reason: Anxiety Last Admin: 09/04/17 00:06 Dose: 0.25 mg Melatonin (Melatonin) 3 mg PO BEDTIME PRN PRN Reason: Other Last Admin: 09/03/17 01:05 Dose: 3 mg Metolazone (Zaroxolyn) 5 mg PO DAILY@0830 [facility] Last Admin: 09/03/17 08:17 Dose: 5 mg Metoprolol Tartrate (Lopressor) 5 mg IVPUSH Q6H PRN PRN Reason: Hypertension Last Admin: 09/03/17 05:04 Dose: 5 mg Metoprolol Tartrate (Lopressor) 100 mg PO TID [facility] Last Admin: 09/04/17 06:36 Dose: 100 mg Morphine Sulfate (Morphine) 2 mg IVPUSH Q4H PRN PRN Reason: Dyspnea Last Admin: 09/03/17 14:24 Dose: 2 mg Nystatin (Nystop) 0 gm TOP BID [facility] Last Admin: 09/03/17 21:50 Dose: 1 applic Omeprazole (Omeprazole) 40 mg PO ACBREAKFAST [facility] Last Admin: 09/04/17 06:37 Dose: 40 mg Ondansetron HCl (Zofran) 4 mg IVPUSH Q4H PRN PRN Reason: Nausea Paroxetine HCl (Paxil) 40 mg PO DAILY [facility] Last Admin: 09/03/17 08:19 Dose: 40 mg (Fluticasone/ (Vilanterol 1 Puff)) 1 each INH DAILY [facility] Last Admin: 09/03/17 10:37 Dose: Not Given Polyethylene Glycol (Miralax) 17 gm PO DAILY PRN PRN Reason: Constipation Last Admin: 09/03/17 08:18 Dose: 17 gm Potassium Chloride (Potassium Chloride) 40 meq PO DAILY [facility] Last Admin: 09/03/17 08:16 Dose: 40 meq Sodium Chloride (Saline Flush) 10 ml FLUSH ASDIRECTED PRN PRN Reason: Keep Vein Open Sodium Chloride (Saline Flush) 2.5 ml FLUSH ASDIRECTED PRN PRN Reason: Keep Vein Open Sodium Chloride ([place] Nasal [place]) 1 ml [place] QID PRN PRN Reason: Congestion Temazepam (Restoril) 15 mg PO BEDTIME [facility] Last Admin: 09/03/17 20:57 Dose: 15 mg Torsemide (Demadex) 40 mg PO BID [facility] Last Admin: 09/03/17 20:57 Dose: 40 mg Vancomycin HCl (Pharmacy To Dose - Vancomycin) 1 dose .XX ASDIRECTED [facility] Discontinued Medications Amiodarone HCl (Cordarone) 200 mg PO Q6H [facility] Last Admin: 08/28/17 18:10 Dose: Not Given Calcium Carbonate/Glycine (Tums) 400 mg PO Q8HR PRN PRN Reason: Gas Calcium Carbonate/Glycine (Tums) 1,000 mg PO ONETIME ONE Stop: 09/03/17 06:53 Last Admin: 09/03/17 07:49 Dose: 1,000 mg Dextrose/Water (Dextrose 50% In Water) 50 ml IVPUSH ONETIME ONE Stop: 08/27/17 08:12 Last Admin: 08/27/17 08:43 Dose: 50 ml Digoxin (Lanoxin) 250 mcg IVPUSH ONETIME ONE Stop: 08/30/17 11:35 Last Admin: 08/30/17 11:40 Dose: 250 mcg Digoxin (Lanoxin) 1,000 mcg PO ONETIME ONE Stop: 08/31/17 08:25 Digoxin (Lanoxin) 500 mcg PO DAILY [facility] Last Admin: 09/02/17 10:43 Dose: Not Given Digoxin (Lanoxin) 250 mcg PO ONETIME ONE Stop: 08/31/17 14:01 Last Admin: 08/31/17 15:00 Dose: 250 mcg Digoxin (Lanoxin) 250 mcg PO ONETIME ONE Stop: 08/31/17 20:01 Last Admin: 08/31/17 19:54 Dose: 250 mcg Diltiazem HCl (Diltiazem) 10 mg IVPUSH ONETIME ONE Stop: 08/27/17 04:20 Last Admin: 08/27/17 04:26 Dose: 10 mg Diltiazem HCl (Diltiazem) 10 mg IVPUSH ONETIME ONE Stop: 08/27/17 06:53 Last Admin: 08/27/17 07:03 Dose: 10 mg Diltiazem HCl (Diltiazem) 10 mg IVPUSH Q4HR PRN PRN Reason: Arrhythmia Last Admin: 08/28/17 12:24 Dose: 10 mg Enoxaparin Sodium (Lovenox) 100 mg SUBCUT ONETIME ONE Stop: 08/27/17 04:35 Last Admin: 08/27/17 04:38 Dose: 100 mg Furosemide (Lasix) 60 mg IVPUSH NOW ONE Stop: 08/27/17 04:32 Last Admin: 08/27/17 04:33 Dose: 60 mg Furosemide (Lasix) Confirm Administered Dose 80 mg .ROUTE .STK-MED ONE Stop: 08/27/17 04:33 Last Admin: 08/27/17 05:11 Dose: Not Given Furosemide (Lasix) 80 mg IVPUSH BID [facility] Last Admin: 08/28/17 20:15 Dose: 80 mg Furosemide (Lasix) 40 mg IVPUSH NOW ONE Stop: 08/30/17 13:20 Last Admin: 08/30/17 13:38 Dose: 40 mg Furosemide (Lasix) 40 mg IVPUSH NOW ONE Stop: 08/31/17 07:24 Last Admin: 08/31/17 08:00 Dose: 40 mg Furosemide (Lasix) 80 mg IVPUSH NOW ONE Stop: 09/01/17 07:28 Last Admin: 09/01/17 08:16 Dose: 80 mg Hydralazine HCl (Apresoline) 10 mg IVPUSH ONETIME ONE Stop: 09/01/17 13:02 Last Admin: 09/01/17 13:21 Dose: 10 mg Hydralazine HCl (Apresoline) 10 mg IVPUSH ONETIME ONE Stop: 09/01/17 20:18 Last Admin: 09/01/17 20:33 Dose: 10 mg Piperacillin Sod/Tazobactam (Sod 3.375 gm/ Sodium Chloride) 50 mls @ 100 mls/ hr IV ONETIME ONE Stop: 08/27/17 04:47 Last Admin: 08/27/17 04:28 Dose: 100 mls/hr Levofloxacin/Dextrose 750 mg/ (Premix) 150 mls @ 100 mls/hr IV Q24H [facility] Last Admin: 08/29/17 08:20 Dose: Not Given Dextrose/Water (Dextrose 5% In Water) 1,000 mls @ 75 mls/hr IV ASDIRECTED [facility] Last Admin: 08/29/17 08:40 Dose: 75 mls/hr Vancomycin HCl 1,750 mg/ (Sodium Chloride) 500 mls @ 250 mls/hr IV Q24H [facility] Last Admin: 08/29/17 13:07 Dose: Not Given Amiodarone HCl/Dextrose (Nexterone In Dextrose 360 Mg/200 Ml) 360 mg in 200 mls @ 33.333 mls/hr IV ASDIRECTED ADRIAN; 1 MG/MIN PRN Reason: Protocol Amiodarone HCl/Dextrose 150 mg (/ Premix) 100 mls @ 600 mls/hr IV ASDIRECTED ONE Stop: 08/28/17 15:54 Last Admin: 08/28/17 17:51 Dose: Not Given Metoprolol Tartrate 10 mg/ (Sodium Chloride) 60 mls @ 100 mls/hr IV ONETIME ONE Stop: 08/28/17 17:31 Last Admin: 08/28/17 17:11 Dose: Not Given Magnesium Sulfate 4 gm/ Premix 100 mls @ 25 mls/hr IV ONETIME ONE Stop: 08/29/17 11:54 Last Admin: 08/29/17 09:26 Dose: 25 mls/hr Cefepime HCl 1 gm/ Premix 50 mls @ 100 mls/hr IV Q12H [facility] Last Admin: 09/02/17 07:30 Dose: 100 mls/hr Diltiazem HCl 100 mg/ Sodium (Chloride) 100 mls @ 5 mls/hr IV TITRATE ADRIAN; 5 MG /HR PRN Reason: Protocol Last Titration: 09/01/17 00:37 Dose: 10 mg/hr, 10 mls/hr Magnesium Sulfate 2 gm/ Premix 50 mls @ 50 mls/hr IV ONETIME ONE Stop: 08/30/17 14:18 Last Admin: 08/30/17 13:38 Dose: 50 mls/hr Dextrose/Sodium Chloride (Dextrose 5%-1/2 Ns) 1,000 mls @ 100 mls/hr IV ASDIRECTED [facility] Last Admin: 09/02/17 03:48 Dose: 100 mls/hr Magnesium Sulfate 4 gm/ Premix 100 mls @ 25 mls/hr IV ONETIME ONE Stop: 08/31/17 12:28 Last Admin: 08/31/17 09:04 Dose: 25 mls/hr Potassium Phosphate 15 mmole/ (Sodium Chloride) 255 mls @ 62.5 mls/hr IV NOW ONE Stop: 09/01/17 12:04 Last Admin: 09/01/17 08:14 Dose: 62.5 mls/hr Piperacillin Sod/Tazobactam (Sod 4.5 gm/ Sodium Chloride) 100 mls @ 200 mls/hr IV Q6H [facility] Last Admin: 09/02/17 19:45 Dose: Not Given Piperacillin Sod/Tazobactam (Sod 4.5 gm/ Sodium Chloride) 100 mls @ 200 mls/hr IV Q6H [facility] Last Admin: 09/03/17 05:01 Dose: 200 mls/hr Meropenem 1 gm/ Sodium (Chloride) 100 mls @ 200 mls/hr IV Q12H [facility] Last Admin: 09/03/17 13:19 Dose: Not Given Insulin Aspart (Novolog) 0 unit SUBCUT Q6H [facility] PRN Reason: Protocol Last Admin: 08/28/17 08:20 Dose: Not Given Lidocaine (Xylocaine-Mpf 2%) Confirm Administered Dose 5 ml .ROUTE .STK-MED ONE Stop: 08/30/17 08:54 Last Admin: 08/30/17 09:34 Dose: Not Given Metoprolol Tartrate (Lopressor) 5 mg IVPUSH ONETIME ONE Stop: 08/28/17 14:33 Last Admin: 08/28/17 15:00 Dose: 5 mg Metoprolol Tartrate (Lopressor) 10 mg IVPUSH ONETIME ONE Stop: 08/28/17 17:12 Last Admin: 08/28/17 17:24 Dose: 10 mg Morphine Sulfate (Morphine) 2 mg IVPUSH Q2H PRN PRN Reason: Pain (severe 7-10) Stop: 08/28/17 07:27 Morphine Sulfate (Morphine) 2 mg IVPUSH ONETIME ONE Stop: 08/31/17 10:40 Last Admin: 08/31/17 10:52 Dose: 2 mg Morphine Sulfate (Morphine) 2 mg IVPUSH ONETIME ONE Stop: 09/01/17 07:07 Last Admin: 09/01/17 07:23 Dose: 2 mg Morphine Sulfate (Morphine) 2 mg IVPUSH ONETIME ONE Stop: 09/01/17 13:40 Last Admin: 09/01/17 13:50 Dose: 2 mg Morphine Sulfate (Morphine) 2 mg IVPUSH ONETIME ONE Stop: 09/01/17 20:18 Last Admin: 09/01/17 20:33 Dose: 2 mg Polyethylene Glycol (Miralax) 17 gm PO DAILY PRN PRN Reason: Constipation Last Admin: 09/02/17 18:07 Dose: 17 gm Potassium Chloride (Klor-Con M20) 40 meq PO ONETIME ONE Stop: 08/29/17 06:41 Last Admin: 08/29/17 06:52 Dose: 40 meq Potassium Chloride (Klor-Con M20) 40 meq PO ONETIME ONE Stop: 08/29/17 07:58 Potassium Chloride (Klor-Con M20) 40 meq PO ONETIME ONE Stop: 08/29/17 13:58 Last Admin: 08/29/17 14:47 Dose: 40 meq Potassium Chloride (Klor-Con M20) 40 meq PO ONETIME ONE Stop: 08/30/17 04:07 Last Admin: 08/30/17 04:16 Dose: 40 meq Potassium Chloride (Klor-Con M20) 40 meq PO ONETIME ONE Stop: 08/30/17 13:20 Last Admin: 08/30/17 13:38 Dose: 40 meq Potassium Chloride (Klor-Con M20) 40 meq PO ONETIME ONE Stop: 08/30/17 21:47 Last Admin: 08/30/17 22:11 Dose: 40 meq Potassium Chloride (Klor-Con M20) 40 meq PO ONETIME ONE Stop: 08/31/17 08:29 Last Admin: 08/31/17 09:03 Dose: 40 meq Potassium Chloride (Klor-Con M20) 40 meq PO ONETIME ONE Stop: 09/01/17 20:19 Last Admin: 09/01/17 20:33 Dose: 40 meq Potassium Chloride (Klor-Con M20) 20 meq PO DAILY [facility] Last Admin: 09/02/17 17:31 Dose: 20 meq - Exam Quality Assessment: Supplemental Oxygen, DVT Prophylaxis General: Alert, Cooperative, No Acute Distress, Lethargic HEENT: Pupils Equal, Pupils Reactive, EOMI, Mucous Membr. Moist/[place] Neck: Supple Lungs: Decreased Breath Sounds, Crackles, Rales Cardiovascular: Regular Rate, Regular Rhythm, No Murmurs GI/Abdominal Exam: Normal Bowel Sounds, Soft, Non-Tender, No Organomegaly, No Distention Back Exam: Normal Inspection Extremities: Non-Tender, Pedal Edema, Leg Pain Peripheral Pulses: 2+: Radial (L), Radial (R), Posterior Tibial (L), Posterior Tibial (R), Dorsalis Pedis (L), Dorsalis Pedis (R) Skin: Warm, Dry, Intact Psy/Mental Status: Alert - Problem List & Annotations (1) Respiratory failure SNOMED Code(s): 829228491 Code(s): J96.90 - RESPIRATORY FAILURE, UNSP, UNSP W HYPOXIA OR HYPERCAPNIA Status: Acute Priority: High Current Visit: Yes Qualifiers: Chronicity: acute on chronic Respiratory failure complication: hypoxia and hypercapnia Qualified Code(s): J96.21 - Acute and chronic respiratory failure with hypoxia; J96.22 - Acute and chronic respiratory failure with hypercapnia; J96.22 - Acute and chronic respiratory failure with hypercapnia; J96.22 - Acute and chronic respiratory failure with hypercapnia (2) Anasarca SNOMED Code(s): 036214685 Code(s): R60.1 - GENERALIZED EDEMA Status: Chronic Priority: High Current Visit: Yes (3) Atrial fibrillation with RVR SNOMED Code(s): 650874356991149 Code(s): I48.91 - UNSPECIFIED ATRIAL FIBRILLATION Status: Resolved Priority: High Current Visit: Yes Annotation/Comment:: Patient rate controlled with diltiazem in the emergency department (4) CHF (congestive heart failure) SNOMED Code(s): 25412726 Code(s): I50.9 - HEART FAILURE, UNSPECIFIED Status: Chronic Priority: High Current Visit: Yes Qualifiers: Congestive heart failure type: systolic Congestive heart failure chronicity : unspecified congestive heart failure chronicity Qualified Code(s): I50.20 - Unspecified systolic (congestive) heart failure (5) Dyspnea SNOMED Code(s): 690074396 Code(s): R06.00 - DYSPNEA, UNSPECIFIED Status: Acute Priority: High Current Visit: Yes Qualifiers: Dyspnea type: shortness of breath Qualified Code(s): R06.02 - Shortness of breath; R06.00 - Dyspnea, unspecified; R06.01 - Orthopnea (6) HTN (hypertension) SNOMED Code(s): 15996561 Code(s): I10 - ESSENTIAL (PRIMARY) HYPERTENSION Status: Chronic Priority : High Current Visit: Yes Qualifiers: Hypertension type: essential hypertension Qualified Code(s): I10 - Essential (primary) hypertension (7) Hypernatremia SNOMED Code(s): 49708792 Code(s): E87.0 - HYPEROSMOLALITY AND HYPERNATREMIA Status: Resolved Priority: Medium Current Visit: Yes (8) Leukocytosis SNOMED Code(s): 449632516 Code(s): D72.829 - ELEVATED WHITE BLOOD CELL COUNT, UNSPECIFIED Status: Acute Priority: High Current Visit: Yes Qualifiers: Leukocytosis type: unspecified Qualified Code(s): D72.829 - Elevated white blood cell count, unspecified (9) Pulmonary infiltrate on chest x-ray SNOMED Code(s): 110970332 Code(s): R91.8 - OTHER NONSPECIFIC ABNORMAL FINDING OF LUNG FIELD Status: Acute Priority: High Current Visit: Yes (10) UTI (urinary tract infection) SNOMED Code(s): 37344779 Code(s): N39.0 - URINARY TRACT INFECTION, SITE NOT SPECIFIED Status: Acute Priority: High Current Visit: Yes Qualifiers: Urinary tract infection type: acute cystitis (11) Chronic kidney disease, stage II (mild) SNOMED Code(s): 772141817 Code(s): N18.2 - CHRONIC KIDNEY DISEASE, STAGE 2 (MILD) Status: Chronic Priority: Medium Current Visit: Yes (12) DM type 2 (diabetes mellitus, type 2) SNOMED Code(s): 87660041 Code(s): E11.9 - TYPE 2 DIABETES MELLITUS WITHOUT COMPLICATIONS Status: Chronic Priority: High Current Visit: Yes Qualifiers: Diabetes mellitus complication status: with neurologic complications Diabetes mellitus complication detail: with other neurological complication Diabetes mellitus terminal supervisor insulin use: with group home use Qualified Code(s) : E11.49 - Type 2 diabetes mellitus with other diabetic neurological complication; Z79.4 - senior living (current) use of insulin (13) Morbid obesity SNOMED Code(s): 417536026 Code(s): E66.01 - MORBID (SEVERE) OBESITY DUE TO EXCESS CALORIES Status: Chronic Priority: High Current Visit: Yes - Problem List Review Problem List Initiated/Reviewed/Updated: Yes - My Orders Last 24 Hours: My Active Orders 09/03/17 06:43 Docusate Sodium [Colace] 100 mg PO BID PRN LORazepam [Ativan] 0.25 mg PO BID PRN Polyethylene Glycol 3350 [MiraLAX] 17 gm PO DAILY PRN 09/03/17 07:00 Levothyroxine [Synthroid] 50 mcg PO SUTUTHSA@0700 fentaNYL [Duragesic] 12 mcg TRDERM Q72H 09/03/17 07:06 Calcium Carbonate [Tums] 500 mg PO Q8HR PRN 09/03/17 07:30 Omeprazole 40 mg PO ACBREAKFAST 09/03/17 08:30 Metolazone [Zaroxolyn] 5 mg PO DAILY@0830 09/03/17 09:00 Aspirin 325 mg PO DAILY Diltiazem [Cardizem CD] 120 mg PO DAILY Ferrous Sulfate 325 mg PO DAILY Nystatin [Nystop] 0 gm TOP BID PARoxetine [Paxil] 40 mg PO DAILY Patient's Own Medication [Ptom] 1 each INH DAILY Potassium Chloride 40 meq PO DAILY Torsemide [Demadex] 40 mg PO BID 09/03/17 11:00 Levofloxacin/Dextrose 5%-Water [Levaquin in D5W 750 MG/150 ML] 750 mg Premix Bag 1 bag IV Q48H 09/03/17 14:00 Meropenem [Merrem] 1 gm Sodium Chloride 0.9% [Normal Saline] 100 ml IV Q12H Metoprolol Tartrate [Lopressor] 100 mg PO TID 09/03/17 21:00 Insulin Glarg,Human.Rec.Analog [LantUS Solostar] 20 units SUBCUT BEDTIME Temazepam [Restoril] 15 mg PO BEDTIME atorvaSTATin [Lipitor] 40 mg PO BEDTIME 09/04/17 05:43 CBC WITH AUTO DIFF [HEME] AM COMPREHENSIVE METABOLIC PN,CMP [CHEM] AM DIGOXIN [CHEM] Routine MAGNESIUM [CHEM] AM PHOSPHORUS [CHEM] AM 09/05/17 05:11 CBC WITH AUTO DIFF [HEME] AM COMPREHENSIVE METABOLIC PN,CMP [CHEM] AM 09/05/17 07:00 Levothyroxine 75 mcg PO MOWEFR@0700 09/06/17 05:11 CBC WITH AUTO DIFF [HEME] AM COMPREHENSIVE METABOLIC PN,CMP [CHEM] AM 09/07/17 05:11 CBC WITH AUTO DIFF [HEME] AM COMPREHENSIVE METABOLIC PN,CMP [CHEM] AM 09/09/17 09:00 cloNIDine [Catapres-TTS 1] 0.3 mg TOP Q7D - Plan Plan:: 56-year-old female admitted 08/27/17 for acute hypoxic respiratory failure, CHF exacerbation, pneumonia, and UTI with past medical history of CVA, A. fib, CAD, DM 2, and hypertension. Hypercapnic hypoxic respiratory failure: Worsening as patient has refused Bipap and DNR/DNI. Talked with Thu daughter, medical decision maker, this morning who stated her and her brother Alesha had spent the last day talking and decided that at this point her mother would prefer comfort care which is their decision. CHF exacerbation: Will continue Lasix 40 mg BID for comfort measures. A-fib with RVR: Restart some of her home meds. Comfort measures Pneumonia: Increased WBC from 18k-21.7k this morning after change to Levaquin and Merapenim. UTI: Resolved. Plan for possible comfort care today. D/C lab draws. Cont. oxygen and antibiotics for comfort measures. Transition back to [facility]. Pain medication as needed for comfort. Dispo: 1-2 days pending.
[2017-09-04] MEDS: Metolazone 5 MG Tab PO SCH (07:30)
[2017-09-04] MEDS: Furosemide 40 MG/4 ML VIAL IV SCH ×2 (08:02→20:14)
[2017-09-04] MEDS: Torsemide 20 MG Tab PO SCH ×2 (08:02→20:13)
[2017-09-04] MEDS: Docusate Sodium 100 MG Cap PO PRN (08:02)
[2017-09-04] MEDS: Potassium Chloride 10% 20 MEQ/15 ML Soln 30 ML UD Cup PO SCH (08:02)
[2017-09-04] MEDS: Ferrous Sulfate 325 MG Tab PO SCH (08:02)
[2017-09-04] MEDS: Nystatin Topical Powder 15 GM Bottle TOP SCH ×2 (08:02→20:15)
[2017-09-04] MEDS: PARoxetine 20 MG Tab PO SCH (08:03)
[2017-09-04] MEDS: Diltiazem 120 MG Cap.CD PO SCH (08:04)
[2017-09-04] MEDS: Aspirin 325 MG Tab PO SCH (08:04)
[2017-09-04] MEDS: Enoxaparin 40 MG/0.4 ML Syringe SUBCUT SCH (08:04)
[2017-09-04] MEDS: Sodium Chloride 0.65% Nasal Spray 45 ML Bottle NAS PRN ×2 (08:21→14:57)
[2017-09-04] MEDS ORDERED: cloNIDine 0.3 MG/Day Transdermal Patch TOP SCH (09:00)
--- NOTE | 2017-09-04 09:46 | PCM.SN ---
- Free Text/Narrative Note: Talked with Thu daughter and medical decision maker at 0945 this morning. She and her brother Alesha have talked over the weekend and have decided that they would like their mother bother to go to comfort measures. Comfort measures were discussed and they would like no further invasive testing.
[2017-09-04] MEDS ORDERED: Magnesium Sulfate/Water 4 GM in Premix Bag 1 BAG IV ONE (09:50)
[2017-09-04] MEDS ORDERED: Potassium Chloride 10 MEQ Tab.ER PO ONE (09:51)
[2017-09-04] MEDS: Phosphorus #1 250 MG Tab PO SCH ×2 (12:04→17:01)
[2017-09-04] MEDS: Morphine 2 MG/ML Syringe IVPUSH PRN (14:49)
[2017-09-04] MEDS: Levalbuterol HCl 0.63 MG/3 ML Neb NEB PRN (14:49)
[2017-09-04] MEDS: Temazepam 15 MG Cap PO SCH (20:13)
[2017-09-04] MEDS: atorvaSTATin 40 MG Tab PO SCH (20:14)
[2017-09-04] MEDS: Insulin Glargine,Human Rec. Analog 100 Units/ML 3 ML Pen SUBCUT SCH (20:38)
[2017-09-05] MEDS: Albuterol/Ipratropium 3.0-0.5 MG/3 ML Neb Soln NEB SCH ×3 (00:48→11:17)
[2017-09-05] MEDS: Phosphorus #1 250 MG Tab PO SCH (00:48)
[2017-09-05] MEDS: Meropenem 1 GM in Sodium Chloride 0.9% 100 ML IV SCH (01:48)
[2017-09-05] MEDS: Amiodarone 200 MG Tab PO SCH ×2 (01:54→09:12)
[2017-09-05] MEDS: Insulin Aspart 100 Units/ML 3 ML Pen SUBCUT SCH ×2 (06:34→12:25)
[2017-09-05] MEDS: Omeprazole 20 MG Cap.CR PO SCH (06:34)
[2017-09-05] MEDS: Metoprolol Tartrate 50 MG Tab PO SCH (06:35)
[2017-09-05 06:43] VITALS: BP 121/58
[2017-09-05] MEDS ORDERED: Levothyroxine 75 MCG Tab PO SCH (07:00)
[2017-09-05] MEDS: Potassium Chloride 10% 20 MEQ/15 ML Soln 30 ML UD Cup PO SCH (09:11)
[2017-09-05] MEDS: Furosemide 40 MG/4 ML VIAL IV SCH (09:11)
[2017-09-05] MEDS: Enoxaparin 40 MG/0.4 ML Syringe SUBCUT SCH (09:11)
[2017-09-05] MEDS: Torsemide 20 MG Tab PO SCH (09:12)
[2017-09-05] MEDS: PARoxetine 20 MG Tab PO SCH (09:12)
[2017-09-05] MEDS: Aspirin 325 MG Tab PO SCH (09:12)
[2017-09-05] MEDS: Ferrous Sulfate 325 MG Tab PO SCH (09:12)
[2017-09-05] MEDS: Diltiazem 120 MG Cap.CD PO SCH (09:12)
[2017-09-05] MEDS: Metolazone 5 MG Tab PO SCH (09:13)
[2017-09-05] MEDS: Nystatin Topical Powder 15 GM Bottle TOP SCH (09:13)
[2017-09-05] MEDS: Levofloxacin/Dextrose 5%-Water 750 MG in Premix Bag 1 BAG IV SCH (12:23)
--- NOTE | 2017-09-05 16:29 | PCM.DCSUM1 ---
Discharge Summary - Hospital Course Free Text/Narrative:: Admission date: August 27 2017 Discharge date: September 05, 2017 Disposition: [facility] Admission diagnosis: #1. Acute hypoxic respiratory failure #2. Hospital-acquired pneumonia resulting in #1 #3. Urinary tract infection #4. Atrial fibrillation with RVR #5. History of hypertension, CHF, CAD, anasarca, type 2 diabetes, hyperlipidemia Discharge diagnoses: #1. Acute hypoxic respiratory failure stable on oxygen via nasal cannula at 4 L #2. Persistent pneumonia despite triple antibiotic therapy #3. Urinary tract infection resolved #4. Atrial fibrillation with RVR despite IV Cardizem drip, digoxin, amiodarone intervention #5.History of hypertension, CHF, CAD, anasarca, type 2 diabetes, hyperlipidemia Hospital course: This is a 57-year-old female [facility] resident that presented on 27 August that the above-mentioned reason. This patient was placed in the ICU initially on BiPAP and was started on several measures including IV vancomycin, Zosyn, Levaquin for both pneumonia and urinary tract infection. Urine cultures grew negative to Levaquin so she was switched to IV cefepime and was continued on vancomycin. However, patient did have a persistent leukocytosis. She was then switched to vancomycin with Zosyn. It appeared that her urinary tract infection did resolve on repeat urinalysis. However, repeat chest x-rays and retrograde distress indicated that her pneumonia did not resolve. Patient also had exacerbation of congestive heart failure requiring multiple dosages of IV Lasix. Patient also had a fibrillation with RVR. For this reason, this patient was placed on IV Cardizem drip that was titrated now though unsuccessful she had persistent tachycardia. Furthermore, amiodarone along with digoxin was also attempted to control her heart rate and rhythm. Despite all these measures, the patient persisted in having multiple comorbidities. Discussion took place with family along with the patient who agreed for comfort care measures instead. She was placed on her home medications along with oral Ativan, morphine, fentanyl patch for comfort control. She was discharged back to [facility]. Antibiotics were discontinued as it felt there were futile. At the time of discharge, the patient had no specific complaints aside from mild generalized pain. She was comfortable with going back to [facility]. - Discharge Data Discharge Date: 09/05/17 Discharge Disposition: DC/Tfer to [facility] Condition: Fair - Patient Summary/Data Consults: Consultations 08/29/17 11:57 Consult to Physical Therapy [PT Evaluation and Treatment] [CONS] Routine - Patient Instructions Diet: Regular Diet as Tolerated Activity: As Tolerated Other/Special Instructions: comfort care. oxygen 4L via nasal cannula. to maintain sat >88%. routine munoz care - Discharge Plan Prescriptions/Med Rec: Amiodarone [Cordarone] 200 mg PO Q8H 7 Days #21 tablet Bisacodyl [Dulcolax] 10 mg RECTAL DAILY PRN 7 Days #7 supp PRN Reason: Constipation fentaNYL [Duragesic] 12 mcg TRDERM Q72H 7 Days #7 patch LORazepam [Ativan] 1 mg PO Q4H PRN 7 Days #42 tab PRN Reason: Anxiety Morphine Sulfate [Alla] 10 mg PO Q6H PRN 7 Days #28 cap.er.pel PRN Reason: air hunger Home Medications: Home Meds Levothyroxine [Synthroid] 50 mcg PO SUTUTHSA@0700 02/18/15 [History] Multivit-Min/FA/Lycopene/Lut [Complete Multi 50+] 1 tab PO DAILY 02/18/15 [ History] atorvaSTATin [Lipitor] 40 mg PO BEDTIME 02/18/15 [History] metFORMIN [Glucophage] 500 mg PO BID 02/18/15 [History] Albuterol Sulfate [Proair Hfa] 2 puff IH QID PRN 10/16/16 [History] Dulaglutide [Trulicity] 0.75 mg SQ TU@2100 10/16/16 [History] Insulin Glarg,Human.Rec.Analog [LantUS Solostar] 22 units SUBCUT BEDTIME [History] PARoxetine HCl [Paroxetine HCl] 40 mg PO DAILY 10/16/16 [History] cloNIDine 0.3 mg TD .ON FRIDAYS @0900 10/16/16 [History] Polyethylene Glycol 3350 [MiraLAX] 17 gm PO DAILY PRN #10 packet 10/21/16 [Rx] Ferrous Sulfate 325 mg PO DAILY 03/05/17 [History] Prednisone [IJD: Prednisone] 7.5 mg PO DAILY 04/02/17 [History] Ascorbic Acid 1,000 mg PO DAILY 04/20/17 [History] Aspirin 325 mg PO DAILY 04/20/17 [History] Levothyroxine 75 mcg PO MOWEFR@0700 05/28/17 [History] Albuterol/Ipratropium [DuoNeb 3.0-0.5 MG/3 ML] 3 ml NEB Q4HRRT PRN 06/12/17 [ History] Fluticasone/Vilanterol [Breo Ellipta 100-25 MCG Inhalation Kit] 1 puff INH DAILY 06/12/17 [History] Insulin Aspart [NovoLOG] See Protocol SUBCUT ASDIRECTED 06/12/17 [History] Mirtazapine [Remeron] 45 mg PO BEDTIME 06/12/17 [History] Metoprolol Tartrate [Lopressor] 100 mg PO TID #40 tablet 06/17/17 [Rx] Temazepam [Restoril] 15 mg PO BEDTIME #10 cap 06/17/17 [Rx] Calcium Carbonate [Tums] 400 mg PO Q8HR PRN 08/31/17 [History] Diltiazem [Cardizem CD] 120 mg PO DAILY 08/31/17 [History] Docusate Sodium 100 mg PO BID PRN 08/31/17 [History] Glimepiride [Amaryl] 2 mg PO WITHBREAKFAST 08/31/17 [History] Metolazone 5 mg PO DAILY 08/31/17 [History] Omeprazole 40 mg PO ACBREAKFAST 08/31/17 [History] Potassium Chloride 20 meq PO BID 08/31/17 [History] Torsemide [Demadex] 40 mg PO BID 08/31/17 [History] fentaNYL [Duragesic] 12 mcg TD Q72H 08/31/17 [History] Amiodarone [Cordarone] 200 mg PO Q8H 7 Days #21 tablet 09/05/17 [Rx] Bisacodyl [Dulcolax] 10 mg RECTAL DAILY PRN 7 Days #7 supp 09/05/17 [Rx] LORazepam [Ativan] 1 mg PO Q4H PRN 7 Days #42 tab 09/05/17 [Rx] Morphine Sulfate [Alla] 10 mg PO Q6H PRN 7 Days #28 cap.er.pel 09/05/17 [Rx] fentaNYL [Duragesic] 12 mcg TRDERM Q72H 7 Days #7 patch 09/05/17 [Rx] Patient Handouts: Edema, Acute Respiratory Failure Forms: ED Department Discharge Referrals: Dean Gibson MD [Primary Care Provider] - - Discharge Summary/Plan Comment Discharge Summary/Plan Comment: Admission date: August 27 2017 Discharge date: September 05, 2017 Disposition: [facility] Admission diagnosis: #1. Acute hypoxic respiratory failure #2. Hospital-acquired pneumonia resulting in #1 #3. Urinary tract infection #4. Atrial fibrillation with RVR #5. History of hypertension, CHF, CAD, anasarca, type 2 diabetes, hyperlipidemia Discharge diagnoses: #1. Acute hypoxic respiratory failure stable on oxygen via nasal cannula at 4 L #2. Persistent pneumonia despite triple antibiotic therapy #3. Urinary tract infection resolved #4. Atrial fibrillation with RVR despite IV Cardizem drip, digoxin, amiodarone intervention #5.History of hypertension, CHF, CAD, anasarca, type 2 diabetes, hyperlipidemia Hospital course: This is a 57-year-old female [facility] resident that presented on 27 August that the above-mentioned reason. This patient was placed in the ICU initially on BiPAP and was started on several measures including IV vancomycin, Zosyn, Levaquin for both pneumonia and urinary tract infection. Urine cultures grew negative to Levaquin so she was switched to IV cefepime and was continued on vancomycin. However, patient did have a persistent leukocytosis. She was then switched to vancomycin with Zosyn. It appeared that her urinary tract infection did resolve on repeat urinalysis. However, repeat chest x-rays and retrograde distress indicated that her pneumonia did not resolve. Patient also had exacerbation of congestive heart failure requiring multiple dosages of IV Lasix. Patient also had a fibrillation with RVR. For this reason, this patient was placed on IV Cardizem drip that was titrated now though unsuccessful she had persistent tachycardia. Furthermore, amiodarone along with digoxin was also attempted to control her heart rate and rhythm. Despite all these measures, the patient persisted in having multiple comorbidities. Discussion took place with family along with the patient who agreed for comfort care measures instead. She was placed on her home medications along with oral Ativan, morphine, fentanyl patch for comfort control. She was discharged back to [facility]. Antibiotics were discontinued as it felt there were futile. At the time of discharge, the patient had no specific complaints aside from mild generalized pain. She was comfortable with going back to [facility]. - Patient Data Vitals - Most Recent: Last Vital Signs Temp 36.4 C 09/05/17 00:00 Pulse 81 09/05/17 09:12 Resp 20 09/05/17 08:00 BP 121/58 L 09/05/17 09:12 Pulse Ox 93 L 09/05/17 08:00 Weight - Most Recent: 97.7 kg I&O - Last 24 hours: Intake & Output 09/05/17 09/05/17 09/05/17 06:59 14:59 22:59 Intake Total 1000 Output Total 2400 Balance -1400 Lab Results - Last 24 hrs: Laboratory Results - last 24 hr 09/04/17 09/04/17 09/05/17 Range/Units 16:40 20:24 06:30 POC Glucose 209 H 184 H 160 H (60-110) mg/dL 09/05/17 Range/Units 11:15 POC Glucose 299 H (60-110) mg/dL Med Orders - Current: Current Medications Discontinued Medications Albuterol/Ipratropium (Duoneb 3.0-0.5 Mg/3 Ml) 3 ml NEB Q6HRRT [facility] Last Admin: 09/05/17 11:17 Dose: 3 ml Amiodarone HCl (Cordarone) 200 mg PO Q6H [facility] Last Admin: 08/28/17 18:10 Dose: Not Given Amiodarone HCl (Cordarone) 200 mg PO Q8H [facility] Last Admin: 09/05/17 09:12 Dose: 200 mg Aspirin (Aspirin) 325 mg PO DAILY [facility] Last Admin: 09/05/17 09:12 Dose: 325 mg Atorvastatin Calcium (Lipitor) 40 mg PO BEDTIME [facility] Last Admin: 09/04/17 20:14 Dose: 40 mg Bisacodyl (Dulcolax) 10 mg RECTAL DAILY PRN PRN Reason: Constipation Calcium Carbonate/Glycine (Tums) 400 mg PO Q8HR PRN PRN Reason: Gas Calcium Carbonate/Glycine (Tums) 1,000 mg PO ONETIME ONE Stop: 09/03/17 06:53 Last Admin: 09/03/17 07:49 Dose: 1,000 mg Calcium Carbonate/Glycine (Tums) 500 mg PO Q8HR PRN PRN Reason: Gas Last Admin: 09/03/17 08:19 Dose: 500 mg Clonidine HCl (Catapres-Tts 3) 0.3 mg TOP Q7D@0900 [facility] Last Admin: 09/04/17 09:37 Dose: 0.3 mg Dextrose/Water (Dextrose 50% In Water) 50 ml IVPUSH ONETIME ONE Stop: 08/27/17 08:12 Last Admin: 08/27/17 08:43 Dose: 50 ml Digoxin (Lanoxin) 250 mcg IVPUSH ONETIME ONE Stop: 08/30/17 11:35 Last Admin: 08/30/17 11:40 Dose: 250 mcg Digoxin (Lanoxin) 1,000 mcg PO ONETIME ONE Stop: 08/31/17 08:25 Digoxin (Lanoxin) 500 mcg PO DAILY [facility] Last Admin: 09/02/17 10:43 Dose: Not Given Digoxin (Lanoxin) 250 mcg PO ONETIME ONE Stop: 08/31/17 14:01 Last Admin: 08/31/17 15:00 Dose: 250 mcg Digoxin (Lanoxin) 250 mcg PO ONETIME ONE Stop: 08/31/17 20:01 Last Admin: 08/31/17 19:54 Dose: 250 mcg Diltiazem HCl (Diltiazem) 10 mg IVPUSH ONETIME ONE Stop: 08/27/17 04:20 Last Admin: 08/27/17 04:26 Dose: 10 mg Diltiazem HCl (Diltiazem) 10 mg IVPUSH ONETIME ONE Stop: 08/27/17 06:53 Last Admin: 08/27/17 07:03 Dose: 10 mg Diltiazem HCl (Diltiazem) 10 mg IVPUSH Q4HR PRN PRN Reason: Arrhythmia Last Admin: 08/28/17 12:24 Dose: 10 mg Diltiazem HCl (Cardizem Cd) 120 mg PO DAILY [facility] Last Admin: 09/05/17 09:12 Dose: 120 mg Docusate Sodium (Colace) 100 mg PO BID PRN PRN Reason: Constipation Last Admin: 09/04/17 08:02 Dose: 100 mg Enoxaparin Sodium (Lovenox) 100 mg SUBCUT ONETIME ONE Stop: 08/27/17 04:35 Last Admin: 08/27/17 04:38 Dose: 100 mg Enoxaparin Sodium (Lovenox) 40 mg SUBCUT DAILY [facility] Last Admin: 09/05/17 09:11 Dose: 40 mg Fentanyl (Duragesic) 12 mcg TRDERM Q72H [facility] Last Admin: 09/03/17 08:00 Dose: 12 mcg Ferrous Sulfate (Ferrous Sulfate) 325 mg PO DAILY [facility] Last Admin: 09/05/17 09:12 Dose: 325 mg Furosemide (Lasix) 60 mg IVPUSH NOW ONE Stop: 08/27/17 04:32 Last Admin: 08/27/17 04:33 Dose: 60 mg Furosemide (Lasix) Confirm Administered Dose 80 mg .ROUTE .STK-MED ONE Stop: 08/27/17 04:33 Last Admin: 08/27/17 05:11 Dose: Not Given Furosemide (Lasix) 80 mg IVPUSH BID [facility] Last Admin: 08/28/17 20:15 Dose: 80 mg Furosemide (Lasix) 40 mg IVPUSH NOW ONE Stop: 08/30/17 13:20 Last Admin: 08/30/17 13:38 Dose: 40 mg Furosemide (Lasix) 40 mg IVPUSH NOW ONE Stop: 08/31/17 07:24 Last Admin: 08/31/17 08:00 Dose: 40 mg Furosemide (Lasix) 80 mg IVPUSH NOW ONE Stop: 09/01/17 07:28 Last Admin: 09/01/17 08:16 Dose: 80 mg Furosemide (Lasix) 40 mg IV BID [facility] Last Admin: 09/05/17 09:11 Dose: 40 mg Hydralazine HCl (Apresoline) 10 mg IVPUSH ONETIME ONE Stop: 09/01/17 13:02 Last Admin: 09/01/17 13:21 Dose: 10 mg Hydralazine HCl (Apresoline) 10 mg IVPUSH ONETIME ONE Stop: 09/01/17 20:18 Last Admin: 09/01/17 20:33 Dose: 10 mg Hydralazine HCl (Apresoline) 10 mg IVPUSH Q6H PRN PRN Reason: Hypertension Last Admin: 09/03/17 18:04 Dose: 10 mg Piperacillin Sod/Tazobactam (Sod 3.375 gm/ Sodium Chloride) 50 mls @ 100 mls/ hr IV ONETIME ONE Stop: 08/27/17 04:47 Last Admin: 08/27/17 04:28 Dose: 100 mls/hr Levofloxacin/Dextrose 750 mg/ (Premix) 150 mls @ 100 mls/hr IV Q24H [facility] Last Admin: 08/29/17 08:20 Dose: Not Given Dextrose/Water (Dextrose 5% In Water) 1,000 mls @ 75 mls/hr IV ASDIRECTED [facility] Last Admin: 08/29/17 08:40 Dose: 75 mls/hr Vancomycin HCl 1,750 mg/ (Sodium Chloride) 500 mls @ 250 mls/hr IV Q24H [facility] Last Admin: 08/29/17 13:07 Dose: Not Given Amiodarone HCl/Dextrose (Nexterone In Dextrose 360 Mg/200 Ml) 360 mg in 200 mls @ 33.333 mls/hr IV ASDIRECTED ADRIAN; 1 MG/MIN PRN Reason: Protocol Amiodarone HCl/Dextrose 150 mg (/ Premix) 100 mls @ 600 mls/hr IV ASDIRECTED ONE Stop: 08/28/17 15:54 Last Admin: 08/28/17 17:51 Dose: Not Given Metoprolol Tartrate 10 mg/ (Sodium Chloride) 60 mls @ 100 mls/hr IV ONETIME ONE Stop: 08/28/17 17:31 Last Admin: 08/28/17 17:11 Dose: Not Given Magnesium Sulfate 4 gm/ Premix 100 mls @ 25 mls/hr IV ONETIME ONE Stop: 08/29/17 11:54 Last Admin: 08/29/17 09:26 Dose: 25 mls/hr Cefepime HCl 1 gm/ Premix 50 mls @ 100 mls/hr IV Q12H [facility] Last Admin: 09/02/17 07:30 Dose: 100 mls/hr Vancomycin HCl 1,750 mg/ (Sodium Chloride) 500 mls @ 250 mls/hr IV Q36H [facility] Last Admin: 09/04/17 21:41 Dose: 250 mls/hr Diltiazem HCl 100 mg/ Sodium (Chloride) 100 mls @ 5 mls/hr IV TITRATE ADRIAN; 5 MG /HR PRN Reason: Protocol Last Titration: 09/01/17 00:37 Dose: 10 mg/hr, 10 mls/hr Magnesium Sulfate 2 gm/ Premix 50 mls @ 50 mls/hr IV ONETIME ONE Stop: 08/30/17 14:18 Last Admin: 08/30/17 13:38 Dose: 50 mls/hr Amiodarone HCl/Dextrose 150 mg (/ Premix) 100 mls @ 600 mls/hr IV .BOLUS [facility] Last Admin: 08/30/17 15:24 Dose: 600 mls/hr Dextrose/Sodium Chloride (Dextrose 5%-1/2 Ns) 1,000 mls @ 100 mls/hr IV ASDIRECTED [facility] Last Admin: 09/02/17 03:48 Dose: 100 mls/hr Magnesium Sulfate 4 gm/ Premix 100 mls @ 25 mls/hr IV ONETIME ONE Stop: 08/31/17 12:28 Last Admin: 08/31/17 09:04 Dose: 25 mls/hr Potassium Phosphate 15 mmole/ (Sodium Chloride) 255 mls @ 62.5 mls/hr IV NOW ONE Stop: 09/01/17 12:04 Last Admin: 09/01/17 08:14 Dose: 62.5 mls/hr Piperacillin Sod/Tazobactam (Sod 4.5 gm/ Sodium Chloride) 100 mls @ 200 mls/hr IV Q6H [facility] Last Admin: 09/02/17 19:45 Dose: Not Given Piperacillin Sod/Tazobactam (Sod 4.5 gm/ Sodium Chloride) 100 mls @ 200 mls/hr IV Q6H [facility] Last Admin: 09/03/17 05:01 Dose: 200 mls/hr Meropenem 1 gm/ Sodium (Chloride) 100 mls @ 200 mls/hr IV Q12H [facility] Last Admin: 09/03/17 13:19 Dose: Not Given Levofloxacin/Dextrose 750 mg/ (Premix) 150 mls @ 100 mls/hr IV Q48H [facility] Last Admin: 09/05/17 12:23 Dose: Not Given Meropenem 1 gm/ Sodium (Chloride) 100 mls @ 200 mls/hr IV Q12H [facility] Last Admin: 09/05/17 01:48 Dose: 200 mls/hr Magnesium Sulfate 4 gm/ Premix 100 mls @ 50 mls/hr IV ONETIME ONE Stop: 09/04/17 11:49 Last Admin: 09/04/17 10:27 Dose: 50 mls/hr Insulin Aspart (Novolog) 0 unit SUBCUT Q6H [facility] PRN Reason: Protocol Last Admin: 08/28/17 08:20 Dose: Not Given Insulin Aspart (Novolog) 0 unit SUBCUT TIDAC [facility] PRN Reason: Protocol Last Admin: 09/05/17 12:25 Dose: 9 units Insulin Glargine (Lantus Solostar) 20 units SUBCUT BEDTIME [facility] Last Admin: 09/04/17 20:38 Dose: 20 units Levalbuterol HCl (Xopenex) 0.63 mg NEB Q4HRRT PRN PRN Reason: Shortness of Breath Last Admin: 09/04/17 14:49 Dose: 0.63 mg Levothyroxine Sodium (Levothyroxine) 75 mcg PO MOWEFR@0700 [facility] Last Admin: 09/05/17 06:34 Dose: 75 mcg Levothyroxine Sodium (Synthroid) 50 mcg PO SUTUTHSA@0700 [facility] Last Admin: 09/04/17 06:37 Dose: 50 mcg Lidocaine (Xylocaine-Mpf 2%) Confirm Administered Dose 5 ml .ROUTE .STK-MED ONE Stop: 08/30/17 08:54 Last Admin: 08/30/17 09:34 Dose: Not Given Lorazepam (Ativan) 0.25 mg PO BID PRN PRN Reason: Anxiety Last Admin: 09/04/17 00:06 Dose: 0.25 mg Melatonin (Melatonin) 3 mg PO BEDTIME PRN PRN Reason: Other Last Admin: 09/03/17 01:05 Dose: 3 mg Metolazone (Zaroxolyn) 5 mg PO DAILY@0830 [facility] Last Admin: 09/05/17 09:13 Dose: 5 mg Metoprolol Tartrate (Lopressor) 5 mg IVPUSH ONETIME ONE Stop: 08/28/17 14:33 Last Admin: 08/28/17 15:00 Dose: 5 mg Metoprolol Tartrate (Lopressor) 10 mg IVPUSH ONETIME ONE Stop: 08/28/17 17:12 Last Admin: 08/28/17 17:24 Dose: 10 mg Metoprolol Tartrate (Lopressor) 5 mg IVPUSH Q6H PRN PRN Reason: Hypertension Last Admin: 09/03/17 05:04 Dose: 5 mg Metoprolol Tartrate (Lopressor) 100 mg PO TID [facility] Last Admin: 09/05/17 06:35 Dose: 100 mg Morphine Sulfate (Morphine) 2 mg IVPUSH Q2H PRN PRN Reason: Pain (severe 7-10) Stop: 08/28/17 07:27 Morphine Sulfate (Morphine) 2 mg IVPUSH ONETIME ONE Stop: 08/31/17 10:40 Last Admin: 08/31/17 10:52 Dose: 2 mg Morphine Sulfate (Morphine) 2 mg IVPUSH ONETIME ONE Stop: 09/01/17 07:07 Last Admin: 09/01/17 07:23 Dose: 2 mg Morphine Sulfate (Morphine) 2 mg IVPUSH ONETIME ONE Stop: 09/01/17 13:40 Last Admin: 09/01/17 13:50 Dose: 2 mg Morphine Sulfate (Morphine) 2 mg IVPUSH Q4H PRN PRN Reason: Dyspnea Last Admin: 09/04/17 14:49 Dose: 2 mg Morphine Sulfate (Morphine) 2 mg IVPUSH ONETIME ONE Stop: 09/01/17 20:18 Last Admin: 09/01/17 20:33 Dose: 2 mg Nystatin (Nystop) 0 gm TOP BID [facility] Last Admin: 09/05/17 09:13 Dose: 1 applic Omeprazole (Omeprazole) 40 mg PO ACBREAKFAST [facility] Last Admin: 09/05/17 06:34 Dose: 40 mg Ondansetron HCl (Zofran) 4 mg IVPUSH Q4H PRN PRN Reason: Nausea Paroxetine HCl (Paxil) 40 mg PO DAILY [facility] Last Admin: 09/05/17 09:12 Dose: 40 mg (Fluticasone/ (Vilanterol 1 Puff)) 1 each INH DAILY [facility] Last Admin: 09/05/17 09:13 Dose: Not Given Polyethylene Glycol (Miralax) 17 gm PO DAILY PRN PRN Reason: Constipation Last Admin: 09/02/17 18:07 Dose: 17 gm Polyethylene Glycol (Miralax) 17 gm PO DAILY PRN PRN Reason: Constipation Last Admin: 09/03/17 08:18 Dose: 17 gm Potassium Chloride (Klor-Con M20) 40 meq PO ONETIME ONE Stop: 08/29/17 06:41 Last Admin: 08/29/17 06:52 Dose: 40 meq Potassium Chloride (Klor-Con M20) 40 meq PO ONETIME ONE Stop: 08/29/17 07:58 Potassium Chloride (Klor-Con M20) 40 meq PO ONETIME ONE Stop: 08/29/17 13:58 Last Admin: 08/29/17 14:47 Dose: 40 meq Potassium Chloride (Klor-Con M20) 40 meq PO ONETIME ONE Stop: 08/30/17 04:07 Last Admin: 08/30/17 04:16 Dose: 40 meq Potassium Chloride (Klor-Con M20) 40 meq PO ONETIME ONE Stop: 08/30/17 13:20 Last Admin: 08/30/17 13:38 Dose: 40 meq Potassium Chloride (Klor-Con M20) 40 meq PO ONETIME ONE Stop: 08/30/17 21:47 Last Admin: 08/30/17 22:11 Dose: 40 meq Potassium Chloride (Klor-Con M20) 40 meq PO ONETIME ONE Stop: 08/31/17 08:29 Last Admin: 08/31/17 09:03 Dose: 40 meq Potassium Chloride (Klor-Con M20) 40 meq PO ONETIME ONE Stop: 09/01/17 20:19 Last Admin: 09/01/17 20:33 Dose: 40 meq Potassium Chloride (Klor-Con M20) 20 meq PO DAILY [facility] Last Admin: 09/02/17 17:31 Dose: 20 meq Potassium Chloride (Potassium Chloride) 40 meq PO DAILY [facility] Last Admin: 09/05/17 09:11 Dose: 40 meq Potassium Chloride (Klor-Con 10) 40 meq PO ONETIME ONE Stop: 09/04/17 09:52 Last Admin: 09/04/17 10:27 Dose: 40 meq Sodium Chloride (Saline Flush) 10 ml FLUSH ASDIRECTED PRN PRN Reason: Keep Vein Open Sodium Chloride (Saline Flush) 2.5 ml FLUSH ASDIRECTED PRN PRN Reason: Keep Vein Open Sodium Chloride ([place] Nasal [place]) 1 ml [place] QID PRN PRN Reason: Congestion Last Admin: 09/04/17 14:57 Dose: 1 spr Sodium Phosphate (Neutra-Phos) 250 mg PO QID [facility] Stop: 09/05/17 00:01 Last Admin: 09/05/17 00:48 Dose: 250 mg Temazepam (Restoril) 15 mg PO BEDTIME [facility] Last Admin: 09/04/17 20:13 Dose: 15 mg Torsemide (Demadex) 40 mg PO BID [facility] Last Admin: 09/05/17 09:12 Dose: 40 mg Vancomycin HCl (Pharmacy To Dose - Vancomycin) 1 dose .XX ASDIRECTED [facility] *Q Meaningful Use (DIS) - VTE *Q VTE Criteria *Q: - Stroke *Q Stroke Criteria *Q: - AMI *Q AMI Criteria *Q:
== END 2017-09-05 14:54 | DRG 189 ==
LOC: MW.ED 03:37 → MW.ICU 06:14
PROVIDERS: ADMIT Internal Medicine; ATTEND Family Medicine
PROC: 05HM33Z Insertion of Infusion Device into Right Internal Jugular Vein, Percutaneous Approach (ICD-10-PCS; principal; 2017-08-30)
DX: J96.20 Acute and chronic respiratory failure, unspecified whether with hypoxia or hypercapnia (principal); J96.01 Acute respiratory failure with hypoxia; E11.9 Type 2 diabetes mellitus without complications; J18.9 Pneumonia, unspecified organism; M35.3 Polymyalgia rheumatica; N39.0 Urinary tract infection, site not specified; I12.9 Hypertensive chronic kidney disease with stage 1 through stage 4 chronic kidney disease, or unspecified chronic kidney disease; I69.359 Hemiplegia and hemiparesis following cerebral infarction affecting unspecified side; E87.0 Hyperosmolality and hypernatremia; I13.0 Hypertensive heart and chronic kidney disease with heart failure and stage 1 through stage 4 chronic kidney disease, or unspecified chronic kidney disease; I50.20 Unspecified systolic (congestive) heart failure; E78.00 Pure hypercholesterolemia, unspecified; I25.2 Old myocardial infarction; J44.9 Chronic obstructive pulmonary disease, unspecified; I48.91 Unspecified atrial fibrillation; Z86.73 Personal history of transient ischemic attack (TIA), and cerebral infarction without residual deficits; E11.22 Type 2 diabetes mellitus with diabetic chronic kidney disease; N18.2 Chronic kidney disease, stage 2 (mild); E11.49 Type 2 diabetes mellitus with other diabetic neurological complication; Z90.81 Acquired absence of spleen; I25.10 Atherosclerotic heart disease of native coronary artery without angina pectoris; R60.1 Generalized edema; E78.5 Hyperlipidemia, unspecified; D72.829 Elevated white blood cell count, unspecified; F41.8 Other specified anxiety disorders; E03.9 Hypothyroidism, unspecified; R91.8 Other nonspecific abnormal finding of lung field; E66.01 Morbid (severe) obesity due to excess calories; R53.83 Other fatigue; Z51.5 Encounter for palliative care; Z79.4 Long term (current) use of insulin; Z88.8 Allergy status to other drugs, medicaments and biological substances; Z79.899 Other long term (current) drug therapy; Z68.29 Body mass index [BMI] 29.0-29.9, adult
CPT/HCPCS: 71045; 80053; 81001; 83605; 83880; 84484; 85025; 85610; 87040 ×2; 87086; 87088; 87186; 93005; 96365; 96372; 96375; 99285; J1650; J1940; J2543; J3490; J7050; 36410; 36415; 80048; 80162; 80202; 82803; 82962; 83735; 84100; 84132; 94640; 94660; 97161-GP; 97530-GP; 99291; A9270-GY; J0282; J0360; J0692; J1160; J1815-GY; J1956; J2185; J2270; J3370; J3475; J7030; J7040; J7042; J7060